=== PATIENT | female | born 1965 | race Two or more races ===

== ENCOUNTER → 2020-06-20 09:58 | Outpatient (BNVA) | payer OTHER, SELFPAY | PROVIDERS: PCP Family Medicine; Referring Provider Family Medicine; Visit Provider Internal Medicine Gastroenterology | DX: Z11.0 Encounter for screening for intestinal infectious diseases (principal) | CPT/HCPCS: 99211 ==

== ENCOUNTER 2020-06-20 17:00 | Outpatient (REF) | payer OTHER, SELFPAY ==
[2020-06-21 13:46] LABS: H Pylori Breath Test NOT DETECTED (NOT DETECTED)
== END 2020-06-20 17:01 | disposition home or self-care (01) ==
LOC: HO.LNP 17:00
PROVIDERS: Visit Provider Internal Medicine Gastroenterology
DX: Z11.0 Encounter for screening for intestinal infectious diseases (principal)
CPT/HCPCS: 83013

== ENCOUNTER 2020-07-19 12:53 | Outpatient (RCR) | payer OTHER, SELFPAY | END 2020-08-20 15:12 | disposition other institution (70) | LOC: HO.OT 12:53 | PROVIDERS: Visit Provider Family Medicine | DX: G56.22 Lesion of ulnar nerve, left upper limb (principal); M96.1 Postlaminectomy syndrome, not elsewhere classified; M47.817 Spondylosis without myelopathy or radiculopathy, lumbosacral region; M47.816 Spondylosis without myelopathy or radiculopathy, lumbar region | CPT/HCPCS: 97110; 97166; 99202 ==

== ENCOUNTER 2020-07-26 12:02 | Outpatient (REF) | payer OTHER, SELFPAY ==
--- NOTE | 2020-07-26 12:10 | XR_ITS ---
EXAMINATION: XR HIP, RIGHT XR HIP, LEFT CLINICAL INFORMATION: Lower back pain. COMPARISON: CT 07/23/2018 TECHNIQUE: 2 views of each hip FINDINGS: Left hip: No fracture or dislocation. The femoral head articulates appropriately with its acetabulum. The joint space is maintained. The left hemipelvis is intact. Mild degenerative change along the sacroiliac joint. Visualized bowel gas pattern is unremarkable. Phleboliths in the pelvis. Right hip: No fracture or dislocation. The femoral head articulates appropriately with its acetabulum. The joint space is maintained. The right hemipelvis is intact. Mild degenerative change along the sacroiliac joint. The visualized bowel gas pattern is unremarkable. Phleboliths are seen in the pelvis. XR/XR hip RT min 2V IMPRESSION: Normal appearance of the hips.
--- NOTE | 2020-07-26 12:10 | XR_ITS ---
EXAMINATION: XR HIP, RIGHT XR HIP, LEFT CLINICAL INFORMATION: Lower back pain. COMPARISON: CT 07/23/2018 TECHNIQUE: 2 views of each hip FINDINGS: Left hip: No fracture or dislocation. The femoral head articulates appropriately with its acetabulum. The joint space is maintained. The left hemipelvis is intact. Mild degenerative change along the sacroiliac joint. Visualized bowel gas pattern is unremarkable. Phleboliths in the pelvis. Right hip: No fracture or dislocation. The femoral head articulates appropriately with its acetabulum. The joint space is maintained. The right hemipelvis is intact. Mild degenerative change along the sacroiliac joint. The visualized bowel gas pattern is unremarkable. Phleboliths are seen in the pelvis. XR/XR hip LT min 2V IMPRESSION: Normal appearance of the hips.
--- NOTE | 2020-07-26 12:10 | XR_ITS ---
EXAMINATION: XR LUMBOSACRAL SPINE CLINICAL INFORMATION: Low back pain COMPARISON: X-rays of lumbar sacral spine July 2018. MRI lumbar sacral spine March 2019. TECHNIQUE: Three views of the lumbosacral spine. FINDINGS: Vertebral bodies normally aligned. Mild degenerative disc changes at L4-L5 unchanged. Probable facet arthrosis at the L5-S1 level and possibly L4-L5 unchanged compared to prior. No fracture or bone lesion. Surgical clips in the right upper quadrant. Partially visualized pelvis including sacroiliac joints normal. XR/XR lumbar spine 2-3V IMPRESSION: Mild spondylosis of lumbar sacral spine without change.
== END 2020-07-26 12:03 | disposition home or self-care (01) ==
LOC: HO.XRAY 12:02
PROVIDERS: PCP Family Medicine; Visit Provider Family Medicine
DX: M54.5 Low back pain (principal)
CPT/HCPCS: 72100; 73502

== ENCOUNTER 2020-08-22 11:34 | Outpatient (REF) | payer OTHER, SELFPAY | END 2020-08-22 11:35 | disposition home or self-care (01) | LOC: HO.LAB 11:34 | PROVIDERS: PCP Family Medicine; Visit Provider Internal Medicine Gastroenterology | DX: Z91.018 Allergy to other foods (principal) | CPT/HCPCS: 82785; 86003 ==

== ENCOUNTER 2020-09-13 08:14 | Day surgery (SDC) | payer OTHER, SELFPAY ==
[2020-09-04 10:39] VITALS: BMI 27.0
--- NOTE | 2020-09-11 11:04 | HO.ANESPROP2 ---
Documented by User: Geno Coffey 09/11/20 11:06 HPI - Anesthesia Eval Consult details Narrative: 54yo F for Upper Endoscopy PMFSH Past Medical History Medical History Arthritis Arthropathy of lumbar facet joint Asthma Depression GERD (gastroesophageal reflux disease) History of anxiety History of fibromyalgia History of headache Lab test positive for detection of COVID-19 virus Postlaminectomy syndrome, cervical Spondylosis of lumbosacral spine without myelopathy Family History Family History Father No problems noted. Mother History of heart attack Surgical History Surgical History History of colonoscopy History of esophagogastroduodenoscopy (EGD) Hx laparoscopic cholecystectomy Hx of cervical discectomy Hx of hysterectomy Social History Social History Alcohol intake: never Smoking Status: Never smoker Use of substances other than those prescribed or required for medical reasons: No Advance Directives Information Provided: No Recently lost weight without trying: No Meds Allergies Allergy/AdvReac Type Severity Reaction Status Date / Time Iodinated Contrast Media Allergy Intermediate HIVES Verified 09/04/20 10:46 [CONTRAST, IV] iopromide [From ULTRAVIST] Allergy Mild HIVES Verified 09/04/20 10:46 ibuprofen [From MOTRIN] AdvReac Intermediate NAUSEA & Verified 09/04/20 10:46 VOMITING Home Medications Medication Instructions Recorded Confirmed Type tramadol 50 mg tablet 50 mg PO BID PRN 07/19/20 09/04/20 History albuterol sulfate 2 puff PO Q4-6H PRN 09/04/20 09/04/20 History atorvastatin 1 tab PO BEDTIME 09/04/20 09/04/20 History buspirone 1 tab PO TID 09/04/20 09/04/20 History yecyczrcxd-cdpzcnijytuva-rfpr 1 tab PO BID PRN 09/04/20 09/04/20 History clonazepam 1 tab PO DAILY PRN 09/04/20 09/04/20 History escitalopram oxalate 1 tab PO DAILY 09/04/20 09/04/20 History pantoprazole 1 tab PO BID 09/04/20 09/04/20 History pregabalin 1 cap PO BEDTIME 09/04/20 09/04/20 History tramadol 1 tab PO Q6H PRN 09/04/20 09/04/20 History zolpidem 1 tab PO BEDTIME PRN 09/04/20 09/04/20 History Exam Exam Date and Time: September 11, 2020 1104 Height,Weight and Vital Signs: Height 4 ft 9 in Weight 56.699 kg Assessment and Plan Assessment Anesthesia Assessment: Chart Reviewed Documented by User: Alfie Walsh MD 09/13/20 08:57 PMFSH Past Medical History Medical History Arthritis Arthropathy of lumbar facet joint Asthma Depression GERD (gastroesophageal reflux disease) History of anxiety History of fibromyalgia History of headache Lab test positive for detection of COVID-19 virus Postlaminectomy syndrome, cervical Spondylosis of lumbosacral spine without myelopathy Family History Family History Father No problems noted. Mother History of heart attack Surgical History Surgical History History of colonoscopy History of esophagogastroduodenoscopy (EGD) Hx laparoscopic cholecystectomy Hx of cervical discectomy Hx of hysterectomy Social History Social History Alcohol intake: never Smoking Status: Never smoker Use of substances other than those prescribed or required for medical reasons: No Advance Directives Information Provided: No Recently lost weight without trying: No Meds Allergies Allergy/AdvReac Type Severity Reaction Status Date / Time Iodinated Contrast Media Allergy Intermediate HIVES Verified 09/04/20 10:46 [CONTRAST, IV] iopromide [From ULTRAVIST] Allergy Mild HIVES Verified 09/04/20 10:46 ibuprofen [From MOTRIN] AdvReac Intermediate NAUSEA & Verified 09/04/20 10:46 VOMITING Home Medications Medication Instructions Recorded Confirmed Type tramadol 50 mg tablet 50 mg PO BID PRN 07/19/20 09/04/20 History albuterol sulfate 2 puff PO Q4-6H PRN 09/04/20 09/04/20 History atorvastatin 1 tab PO BEDTIME 09/04/20 09/04/20 History buspirone 1 tab PO TID 09/04/20 09/04/20 History sgadaglecz-xouyxaepfddnc-vhzs 1 tab PO BID PRN 09/04/20 09/04/20 History clonazepam 1 tab PO DAILY PRN 09/04/20 09/04/20 History escitalopram oxalate 1 tab PO DAILY 09/04/20 09/04/20 History pantoprazole 1 tab PO BID 09/04/20 09/04/20 History pregabalin 1 cap PO BEDTIME 09/04/20 09/04/20 History tramadol 1 tab PO Q6H PRN 09/04/20 09/04/20 History zolpidem 1 tab PO BEDTIME PRN 09/04/20 09/04/20 History Exam Airway Mallampati Class: I TM Dist: >3cm Neck ROM: Full Loose/Missing/Broken Teeth: No Heart: RRR Lungs: NL Other: AO Assessment and Plan Assessment Anesthesia Assessment: Anesthesia Plan Discussed, Smoking Cess. Discussed and Chart Reviewed Final Anesthetic Review NPO: Yes ASA Class: II Final Preanesthetic Review: No Changes in Pt Med Stat, Meds/Allgs Chart Reviewed, Consent Obtained/Reviewed and Anes Risks/Benef Reviewed Patient Risk: Low Procedure Risk: Low Anesthetic Plan Anesthetic Plan: MAC: Disposition: Standard PACU
[2020-09-13 08:43] VITALS: BP 125/79; PULSE 85; RESP 16; TEMP 36.7; O2SAT 100
[2020-09-13] MEDS: Lactated Ringers 1,000 ML 100 ML IVCONT (08:58)
--- NOTE | 2020-09-13 09:16 | P.HPSUR_ITS ---
Pre-Procedural Eval Section B Chief Complaint: EPIGASTRIC PAIN,GERD Relevant Family History (Specify if Yes): No Relevant Social History: None Present Medications: see Short Stay Collaborative assessment Medical History: Significant History (Arthritis Arthropathy of lumbar facet joint Asthma Depression GERD (gastroesophageal reflux disease) History of anxiety History of fibromyalgia History of headache Lab test positive for detection of COVID-19 virus Postlaminectomy syndrome, cervical Spondylosis of lumbosacral spine without myelopathy) History of Previous Operations: Relevant previous surgery/procedure and date(s) (cholecystectomy,hysterectomy) Allergies: Allergies Allergy/AdvReac Type Severity Reaction Status Date / Time Iodinated Contrast Media Allergy Intermediate HIVES Verified 09/04/20 10:46 [CONTRAST, IV] iopromide [From ULTRAVIST] Allergy Mild HIVES Verified 09/04/20 10:46 ibuprofen [From MOTRIN] AdvReac Intermediate NAUSEA & Verified 09/04/20 10:46 VOMITING Review of Systems Sugical H&P ROS: Negative: Constitution, Cardiovascular, Respiratory, N eurological, Psychiatric, Hem-Onc, Allergic/Immunologic, Gastrointestinal, Genitourinary, Musculoskeletal, Integumentary, Endocrine and Eyes/Ears/Nose/Throat Exam Surgical H&P Exam: Normal: HEENT, Normal: Heart, Normal: Lungs, Normal: Extremities, Normal: Abdomen, Normal: Skin and Normal: Neurological Plan Diagnosis/Plan: Unchanged I have reviewed the history and physical and performed a pertinent physical examination on my patient. No changes have occurred unless specified.
--- NOTE | 2020-09-13 09:17 | PM.OP ---
Brief Operative Note Date of Service: 09/13/20 Pre-op diagnosis: epigastric pain Post-op diagnosis: same Procedure: Procedure Description: EGD FLEXIBLE TRANSORAL UPPER GASTROINTESTINAL ENDOSCOPY UPPER ENDOSCOPY Consent: Indications for the procedure and potential complications of bleeding, perforation, reaction to medications and missed diagnosis were discussed with the patient and informed consent was obtained. Instrument: Olympus GIF H 190 J mid size upper endoscope Monitoring: Vital signs and clinical assessment, continuous EKG monitoring, Pulse oximetry, Carbon Dioxide monitoring and blood pressure monitoring were done throughout the procedure. Procedure: The patient was placed in the left lateral decubitis position and pre-procedure medications were administered and a bite block was placed. The endoscope was inserted into the mouth and advanced under direct vision to the third part of duodenum. A careful inspection was made as the upper endoscope was withdrawn including a retroflexed examination of the proximal stomach; Findings and interventions are described below. Findings: Larynx:normal Esophagus: GE junction at 36 cm, diaphragm hiatus at 36 cm, no varices or esophagitis. random bx taken Stomach: Patchy gastric erythema at antrum. Biopsies were obtained. Grade 2 flap valve on retroflexed examination of the cardia. There was a lack of gastric peristalsis Duodenum: Normal bulb and descending duodenum, bx taken Intervention: Biopsies as noted above Impression/Findings: gastritis possible gastroparesis PLAN: await bx gastric emptying study Surgeon: Jensen Garvin MD Anesthesia: MAC Estimated blood loss (mL): 0 Condition: stable Disposition: PACU
[2020-09-13 09:45] VITALS: BP 101/63; PULSE 95; RESP 16; TEMP 36.1; O2SAT 99
[2020-09-13 10:00] VITALS: BP 121/74; PULSE 90; RESP 20; TEMP 36.3; O2SAT 100
--- NOTE | 2020-09-13 10:40 | HO.POSTANES ---
Post Anesthesia Evaluation Post Anesthesia Evaluation Vital Signs: Vital Signs Temp Pulse Resp BP Pulse Ox 09/13/20 10:00 97.4 F 90 20 121/74 100 09/13/20 09:45 97.0 F 95 16 101/63 99 09/13/20 08:43 98.0 F 85 16 125/79 100 Anesthesia: Monitored Mental Status: Awake Pain Control: Satisfactory Nausea/Vomiting: None Hydration: Adequate Anesthesia-Related Issues: No Anes. Related Issues
== END 2020-09-13 11:09 | disposition home or self-care (01) ==
PROVIDERS: PCP Family Medicine; Visit Provider Internal Medicine Gastroenterology
PROC: 0DJ08ZZ Inspection of Upper Intestinal Tract, Via Natural or Artificial Opening Endoscopic (ICD-10-PCS; CPT 43235; principal; 2020-09-13 09:40)
DX: K21.9 Gastro-esophageal reflux disease without esophagitis (principal); K29.50 Unspecified chronic gastritis without bleeding; K31.84 Gastroparesis; K44.9 Diaphragmatic hernia without obstruction or gangrene; J45.909 Unspecified asthma, uncomplicated; Z90.49 Acquired absence of other specified parts of digestive tract; Z79.51 Long term (current) use of inhaled steroids; Z79.899 Other long term (current) drug therapy; Z86.19 Personal history of other infectious and parasitic diseases; Z91.041 Radiographic dye allergy status; Z91.09 Other allergy status, other than to drugs and biological substances
CPT/HCPCS: 43239; 88305; 88342

== ENCOUNTER → 2020-10-31 13:09 | Outpatient (BNVA) | payer OTHER, SELFPAY | PROVIDERS: PCP Family Medicine; Visit Provider Anesthesiology | DX: M96.1 Postlaminectomy syndrome, not elsewhere classified (principal); M47.817 Spondylosis without myelopathy or radiculopathy, lumbosacral region; M47.816 Spondylosis without myelopathy or radiculopathy, lumbar region | CPT/HCPCS: Q3014 ==

== ENCOUNTER 2020-12-04 12:52 | Outpatient (REF) | payer OTHER, SELFPAY ==
--- NOTE | ~2020-12-04 | XR_ITS ---
EXAMINATION: CERVICAL AND THORACIC SPINE X-RAY CLINICAL INFORMATION: Pain COMPARISON: None TECHNIQUE: 4 views of the cervical spine and 2 views of the thoracic spine FINDINGS: Cervical spine: There is mild curvature of the mid cervical spine to the left. Bone alignment is otherwise normal. No fracture or dislocation is seen. There are postsurgical changes from anterior fusion with orthopedic hardware at C6-C7. There is bony ankylosis of the C6-C7 disc space. There is mild degenerative spondylosis at C5-C6. Disc spaces are normal. Prevertebral soft tissues are normal. Thoracic spine: There is curvature of the thoracic spine to the right with apex at T7. Bone alignment is otherwise normal. No fracture or dislocation is seen. It may be mild degenerative disc disease of the mid thoracic spine. Paraspinal soft tissues are unremarkable. XR/XR cervical spine 3V IMPRESSION: Cervical spine: ACDF at C6-C7. Mild degenerative spondylosis at C5-C6. Thoracic spine: Scoliosis of the midthoracic spine convex to the right.
--- NOTE | ~2020-12-04 | XR_ITS ---
EXAMINATION: CERVICAL AND THORACIC SPINE X-RAY CLINICAL INFORMATION: Pain COMPARISON: None TECHNIQUE: 4 views of the cervical spine and 2 views of the thoracic spine FINDINGS: Cervical spine: There is mild curvature of the mid cervical spine to the left. Bone alignment is otherwise normal. No fracture or dislocation is seen. There are postsurgical changes from anterior fusion with orthopedic hardware at C6-C7. There is bony ankylosis of the C6-C7 disc space. There is mild degenerative spondylosis at C5-C6. Disc spaces are normal. Prevertebral soft tissues are normal. Thoracic spine: There is curvature of the thoracic spine to the right with apex at T7. Bone alignment is otherwise normal. No fracture or dislocation is seen. It may be mild degenerative disc disease of the mid thoracic spine. Paraspinal soft tissues are unremarkable. XR/XR thoracic spine 2V IMPRESSION: Cervical spine: ACDF at C6-C7. Mild degenerative spondylosis at C5-C6. Thoracic spine: Scoliosis of the midthoracic spine convex to the right.
[2020-12-04 13:54] LABS: MANUAL DIFF FLAG NO
[2020-12-04 13:58] LABS: Basophils Percent Auto 0.4 % (0-2); Eosinophils Percent Auto 0.4 % (0-4); Hematocrit 35.8 % (37-47); Imm Gran Abs Auto 0.02 X10*3/uL (0.00-0.03); Imm Gran Pct Auto 0.2 % (0.0-0.4); Lymphocytes Absolute Auto 2.7 X10*3/uL (1.2-4.9); Lymphocytes Percent Auto 30.6 % (20-40); Mean Corpuscular HGB Conc 33.5 g/dl (31.0-35.0); Mean Corpuscular Volume 92.5 fL (80-98); Mean Platelet Volume 9.4 fL (9.4-12.3); Monocytes Absolute Auto 0.7 X10*3/uL (0.1-1.2); Monocytes Percent Auto 7.9 % (2-11); Neutrophils Absolute Auto 5.4 X10*3/uL (2.0-8.3); Neutrophils Percent Auto 60.5 % (45-73); Platelet Count 305 X10*3/uL (160-400); Red Blood Count 3.87 X10*6/uL (4.20-5.50); Red Cell Distribution Width 12.9 % (11.0-16.0); White Blood Count 8.9 X10*3/uL (4.8-10.8)
[2020-12-04 14:11] LABS: Estimated Average Glucose 94 mg/dL; Hemoglobin A1c % 4.9 %
[2020-12-04 14:55] LABS: Alanine Aminotransferase 16 U/L (0-31); Albumin Level 4.2 g/dL (3.5-5.0); Alkaline Phosphatase 62 U/L (39-117); Anion Gap 13 (12-20); Aspartate Amino Transferase 22 U/L (5-31); Bilirubin Direct 0.2 mg/dL (0.0-0.5); Bilirubin Total 0.8 mg/dL (0.0-1.0); Blood Urea Nitrogen 10 mg/dL (9-16); Calcium 9.2 mg/dL (8.4-10.2); Carbon Dioxide 29 mmol/L (22-29); Chloride 102 mmol/L (96-108); Cholesterol 266 mg/dL; Estimated Glomerular Filt Rate > 60; Glucose Random 84 mg/dL (60-115); HDL Cholesterol 76 mg/dL; Iron 135 mcg/dL (30-160); LDL Cholesterol Calculated 166 mg/dl; Percent Iron Saturation 40 % (15-50); Potassium 4.1 mmol/L (3.3-5.1); Sodium 140 mmol/L (135-145); Total Iron Binding Capacity 336 mcg/dL (228-428); Total Protein 7.9 g/dL (6.5-8.0); Triglycerides 123 mg/dL; Unsaturated Iron Binding 201 ug/dL
[2020-12-04 15:16] LABS: Ferritin 32 ng/mL (10-250); Free T4 (Free Thyroxine) 0.85 ng/dL (0.71-1.85); Vitamin D 25-OH Total 21.3 ng/mL (>30)
[2020-12-04 15:43] LABS: Folate 13.4 ng/mL (> or = 4.0); Vitamin B12 220 pg/mL (200-900)
[2020-12-05 08:31] LABS: ~HepC Num1 0.19 S/CO (0.00-0.79); ~Hepatitis C Antibody Nonreactive (Nonreactive)
[2020-12-05 08:33] LABS: HBsAGNum1 0.18 S/CO (0.00-0.99); HIV AB/AG Nonreactive (Nonreactive); HIV Num 1 0.04 S/CO (0.00-0.99); Hepatitis B Surface Antigen Negative (Negative)
[2020-12-05 08:55] LABS: HBS Num1 3.65 mIU/mL (0-7.99); ~Hepatitis B Surface Antibody NONREACTIVE (Nonreactive)
[2020-12-05 11:40] LABS: CT PCR NOT DETECTED (Not Detect.); NG PCR NOT DETECTED (Not Detect.)
== END 2020-12-04 12:53 | disposition home or self-care (01) ==
LOC: HO.LAB 12:52
PROVIDERS: PCP Family Medicine; Visit Provider Family Medicine
DX: E78.5 Hyperlipidemia, unspecified (principal); R53.83 Other fatigue; M54.2 Cervicalgia
CPT/HCPCS: 72040; 72070; 80048; 80061; 80076; 82306; 82607; 82728; 82746; 83036; 83540; 84439; 84443; 85025; 86706; 86803; 87340; 87389; 87491; 87591

== ENCOUNTER → 2020-12-21 13:57 | Outpatient (BNVA) | payer OTHER, SELFPAY | PROVIDERS: Visit Provider Student in an Organized Health Care Education/Training Program | DX: M79.7 Fibromyalgia (principal) | CPT/HCPCS: 99212 ==

== ENCOUNTER 2021-03-07 13:57 | Outpatient (REF) | payer OTHER, SELFPAY ==
[2021-03-08 17:17] LABS: Urine Cytology See Pathology rpt
== END 2021-03-07 13:58 | disposition home or self-care (01) ==
LOC: HO.LNP 13:57
PROVIDERS: PCP Family Medicine
DX: N39.0 Urinary tract infection, site not specified (principal); R31.9 Hematuria, unspecified
CPT/HCPCS: 88112; 99212

== ENCOUNTER → 2021-03-13 08:08 | Outpatient (REF) | payer OTHER, SELFPAY ==
--- NOTE | ~2021-03-13 | NM_ITS ---
EXAMINATION: RADIONUCLIDE SOLID FOOD GASTRIC EMPTYING 4-HOUR STUDY CLINICAL INFORMATION: Epigastric pain. COMPARISON: No previous gastric emptying study is available for comparison. TECHNIQUE: A standard meal consisting of 4 oz of Egg Beaters brand tagged with 740 microcuries Tc-99m Sulfur Colloid, 8 oz water and 2 slices of toast with jelly was administered orally to the patient. Images were obtained using a dual head gamma camera in the anterior and posterior projections over of the stomach immediately post ingestion and at hourly intervals up to 3 hours post ingestion. Images were not obtained at 4 hours due to the minimal retention at 3 hours. The anterior and posterior counts at each time interval were averaged using the geometric mean and expressed as percentage of the immediate post ingestion counts. FINDINGS: There is good visualization of activity in the stomach immediately post ingestion. As the study progresses, there is good clearance of activity from the stomach and visualization of progressively increasing small bowel activity. By the end of the study, there is almost no retention noted in the stomach. Retention in the stomach at each time interval was: 1 hour 82% (normal 37%-90%) 2 hours 14% (normal 30%-60%) 3 hours 6% 4 hours (Not Obtained) (normal 0%-10%) NM/NM gastric emptying study IMPRESSION: Normal solid food gastric emptying study.
== END ==
LOC: HO.NUCMED 08:08
PROVIDERS: Visit Provider Internal Medicine Gastroenterology
DX: R10.13 Epigastric pain (principal)
CPT/HCPCS: 78264; A9541

== ENCOUNTER 2021-03-19 09:30 | Outpatient (REF) | payer OTHER, SELFPAY ==
--- NOTE | ~2021-03-19 | US_ITS ---
EXAMINATION: US THYROID CLINICAL INFORMATION: Nontoxic multinodular goiter. COMPARISON: Thyroid ultrasound 02/02/2020 and 01/20/2018. Ultrasound-guided thyroid biopsy 07/08/2018. TECHNIQUE: Linear transducer grayscale and color Doppler examination with attention to the region of the thyroid. FINDINGS: SIZE: Measurements of the thyroid lobes and nodules are given in sagittal, anteroposterior and transverse dimensions respectively. Right Thyroid Lobe: 4.6 x 1.2 x 1.5 cm, volume 4.2 mL. Previously 4.6 x 1.1 x 1.3 cm, volume 3.6 mL. Parenchyma: The gland echotexture is homogeneous. Thyroid vascularity is normal. Left Thyroid Lobe: 4.8 x 1.2 x 1.4 cm, volume 4.2 mL. Previously 4.9 x 1.6 x 1.2 cm, volume 4.8 mL. Parenchyma: The gland echotexture is homogeneous. Thyroid vascularity is normal. Isthmus: 0.3 cm in maximum AP dimension. Previously 0.5 cm. Estimated total number of nodules greater than or equal to 1 cm: 2. Brass Chaser nodules are described as follows: 1. Location: Right lower pole. Size: 0.4 x 0.3 x 0.4 cm, volume 0.02 mL. Previously: 0.4 x 0.4 x 0.4 cm, volume 0.03 mL. Nodule characteristics: Composition: Solid/almost completely solid (2). Echogenicity: Hyperechoic (1). Shape: Not taller than wide (0). Margins: Smooth (0). Echogenic Foci: Peripheral calcifications (2). ACR TI-RADS total points: 5: ACR TI-RADS category: 4 Significant change in size (>/= 20% in 2 dimensions and minimal increase of 2 mm or 50% or greater increase in volume): Change in features: Change in ACR TI-RADS risk category: 2. Location: Left upper pole. Size: 1.0 x 0.8 x 0.8 cm, volume 0.36 mL. Previously: 1.0 x 1.0 x 0.8 cm, volume 0.38 mL. Nodule characteristics: Composition: Solid/almost completely solid (2). Echogenicity: Hypoechoic (2). Shape: Not taller than wide (0). Margins: Smooth (0). Echogenic Foci: None (0). ACR TI-RADS total points: 4 ACR TI-RADS category: 4 Significant change in size (>/= 20% in 2 dimensions and minimal increase of 2 mm or 50% or greater increase in volume): Change in features: Change in ACR TI-RADS risk category: 3. Location: Left mid pole. Size: 0.4 x 0.2 x 0.3 cm, volume 0.014 mL. Previously: 0.5 x 0.3 x 0.3 cm, volume 0.02 mL. Nodule characteristics: Composition: Solid/almost completely solid (2). Echogenicity: Hypoechoic (2). Shape: Not taller than wide (0). Margins: Smooth (0). Echogenic Foci: None (0). ACR TI-RADS total points: 4 ACR TI-RADS category: 4 Significant change in size (>/= 20% in 2 dimensions and minimal increase of 2 mm or 50% or greater increase in volume): Change in features: Change in ACR TI-RADS risk category: 4. Location: Left lower pole. Size: 1.4 x 0.9 x 1.2 cm, volume 0.78 mL. Previously: 1.1 x 1.3 x 1.2 cm, volume 0.9 mL. Nodule characteristics: Composition: Mixed cystic and solid (1). Echogenicity: Hyperechoic (1). Shape: Not taller than wide (0). Margins: Smooth (0). Echogenic Foci: None (0). ACR TI-RADS total points: 2 ACR TI-RADS category: 2 Significant change in size (>/= 20% in 2 dimensions and minimal increase of 2 mm or 50% or greater increase in volume): Change in features: Change in ACR TI-RADS risk category: 5. Location: Isthmus, lower pole. Size: 1.0 x 0.6 x 1.3 cm, volume 0.36 mL. Previously: 1.5 x 1.2 x 1.3 cm, volume 1.2 mL. Nodule characteristics: Composition: Mixed cystic and solid (1). Echogenicity: Hypoechoic (2). Shape: Not taller than wide (0). Margins: Smooth (0). Echogenic Foci: None (0). ACR TI-RADS total points: 3 ACR TI-RADS category: 3 Significant change in size (>/= 20% in 2 dimensions and minimal increase of 2 mm or 50% or greater increase in volume): Change in features: Change in ACR TI-RADS risk category: NODES: No lymphadenopathy is seen in the tissue surrounding the thyroid gland. US/US thyroid IMPRESSION: Stable bilateral thyroid nodules. ACR TI-RADS RECOMMENDATION REFERENCE: Ultrasound-guided fine-needle aspiration, followup ultrasound, no further follow up. * TR1 (0 point) and TR 2 (2 points): No FNA or follow up * TR3 (3 points): FNA if more than or equal to 2.5 cm in maximum dimension, followup ultrasound in 1, 3 and 5 years if 1.5 to 2.4 cm in maximum dimension. * TR4 (4-6 points): FNA if more than or equal to 1.5 cm in maximum dimension, followup ultrasound in 1, 2, 3 and 5 years if 1 to 1.4 cm in maximum dimension. * TR5 (more than or equal to 7 points): FNA if more than or equal to 1 cm in maximum dimension, followup ultrasound every year for 5 years if 0.5 to 0.9 cm in maximum dimension. * TR3, TR4 or TR5 nodules that are below the size threshold for follow up receive no follow up.
== END 2021-03-19 09:31 | disposition home or self-care (01) ==
LOC: HO.US 09:30
PROVIDERS: Visit Provider Internal Medicine Endocrinology, Diabetes & Metabolism
DX: E04.2 Nontoxic multinodular goiter (principal)
CPT/HCPCS: 76536

== ENCOUNTER → 2021-03-26 07:56 | Outpatient (BNVA) | payer OTHER, SELFPAY | PROVIDERS: PCP Family Medicine; Visit Provider Internal Medicine Endocrinology, Diabetes & Metabolism | DX: E04.2 Nontoxic multinodular goiter (principal) | CPT/HCPCS: 99212 ==

== ENCOUNTER 2021-06-07 11:46 | Outpatient (REF) | payer OTHER, SELFPAY | END 2021-06-07 11:47 | disposition home or self-care (01) | LOC: HO.LNP 11:46 | PROVIDERS: PCP Family Medicine | DX: N39.0 Urinary tract infection, site not specified (principal) | CPT/HCPCS: 81002; 87086; 99212 ==

== ENCOUNTER → 2021-07-02 15:07 | Outpatient (BNVA) | payer OTHER, SELFPAY | PROVIDERS: PCP Family Medicine; Referring Provider Family Medicine; Visit Provider Internal Medicine Cardiovascular Disease | DX: R07.89 Other chest pain (principal); E78.5 Hyperlipidemia, unspecified | CPT/HCPCS: 93005; 99212 ==

== ENCOUNTER → 2021-07-05 08:10 | Outpatient (REF) | payer OTHER, SELFPAY ==
--- NOTE | 2021-07-05 08:13 | CA_ITS ---
Acquisition Time: 2021-07-05 08:15:03 Total Exercise Time: 00:07:00 Test Indications: Chest Pain Medications: SEE CHART Protocol: BETSY Max HR: 146 BPM 87% of Pred: 166 BPM Max BP: 126/072 mmHG Max Work Load: 8.5 METS Exercise stress test with exercise 7 min of Betsy protocol, without anginal symptoms, without arrythmia, with normotensive response to exercise, without EKG changes meeting criteria for ischemia. Test reviewed with Dr Finley. Referred By: Shiv Denny Overread By: MEE JENKINS
== END ==
LOC: HO.CARD 08:10
PROVIDERS: PCP Family Medicine; Visit Provider Internal Medicine Cardiovascular Disease
DX: R07.89 Other chest pain (principal)
CPT/HCPCS: 93017

== ENCOUNTER → 2021-07-23 13:27 | Outpatient (BNVA) | payer OTHER, SELFPAY | PROVIDERS: PCP Family Medicine; Referring Provider Family Medicine; Visit Provider Nurse Practitioner Family | DX: R07.89 Other chest pain (principal); E78.5 Hyperlipidemia, unspecified | CPT/HCPCS: 99212 ==

== ENCOUNTER 2021-08-29 14:14 | Outpatient (REF) | payer OTHER, SELFPAY ==
--- NOTE | ~2021-08-29 | XR_ITS ---
EXAMINATION:XR cervical spine 3V CLINICAL INFORMATION: Cervalgia COMPARISON: None TECHNIQUE: 3 views of the cervical spine were obtained. Frontal lateral and open-mouth odontoid view FINDINGS: 7 cervical vertebrae identified maintaining normal height and alignment, anterior fusion of C6-C7 with a plate and screws, the vertebral bodies are completely fused.. Narrowing of intervertebral disc spaces at mild narrowing of the intervertebral disc spaces at C5-C6 and C7-T1 suggests underlying mild degenerative disc disease. No prevertebral soft tissue swelling. Surrounding soft tissue and included lung apices are clear. Included lung apex is clear. XR/XR cervical spine 3V IMPRESSION: 1. Complete anterior fusion of C6 and C7, hardware remain in place intact. 2. Narrowing of intervertebral disc spaces suggest underlying degenerative disc disease. 3. Loss of normal cervical lordosis likely spasm.
--- NOTE | ~2021-08-29 | XR_ITS ---
EXAMINATION: XR LUMBAR SPINE CLINICAL INFORMATION: Reason for Exam LUMBAGO W/SCIATICA, LEFT SIDE COMPARISON: Prior study July 2020 TECHNIQUE: Frontal lateral and coned-down L5-S1 frontal lateral FINDINGS: 4 [id number] lumbar vertebrae were identified maintaining normal height and alignments. L5 is sacralized. Narrowing of intervertebral disc spaces suggest underlying degenerative disc disease. Paravertebral soft tissues are unremarkable. There are radiolucencies, most likely superimposed bowel gas.. Surgical clips right upper quadrant from prior cholecystectomy. No radiographic evidence of osteolytic or osteoblastic lesions. XR/XR lumbar spine 2-3V IMPRESSION: No fracture or dislocation. Narrowing of intervertebral disc spaces suggest underlying degenerative disc disease. . Congenitally sacralized L5.
== END 2021-08-29 14:15 | disposition home or self-care (01) ==
LOC: HO.XRAY 14:14
PROVIDERS: PCP Family Medicine; Visit Provider Family Medicine
DX: M54.2 Cervicalgia (principal); M54.42 Lumbago with sciatica, left side
CPT/HCPCS: 72040; 72100

== ENCOUNTER 2021-09-18 08:32 | Outpatient (REF) | payer OTHER, SELFPAY ==
--- NOTE | ~2021-09-18 | CT_ITS ---
EXAMINATION: CT CHEST WITHOUT CONTRAST CLINICAL INFORMATION: Solitary pulmonary nodule. COMPARISON: CT chest 06/07/2020. TECHNIQUE: Multidetector volumetric CT imaging of the chest was done. Axial MIP volume rendering provided. Sagittal and coronal reformatted images were obtained. This CT examination was performed using dose optimization techniques as appropriate, variously including the following: *Automated exposure control *Adjustment of mA and/or kV according to patient size (this includes techniques or standardized protocols for targeted exams where dose is matched to indication/reason for exam; i.e. extremities or head) *Use of iterative reconstruction technique DLP: 99 mGy-cm FINDINGS: [facility]: Unremarkable chest. LUNGS: There is a 2 mm calcified granuloma right upper lobe adjacent to the anterior mediastinum, axial image 111/6; 3 mm nodule along the left major fissure, axial image 191/6; 3 mm pleural-based nodule in the right lower lobe, axial image 190/6; 4 mm and adjacent 2 mm nodule right middle lobe, axial image 216/6, axial image 246/6; 1 mm calcified nodule right lower lobe, image 261/6. There is no acute consolidation, mass or ground-glass density. MEDIASTINUM: There is a known nodular left thyroid lobe extending to the isthmus better visualized now measuring 1.1 cm. Small calcified density seen in the right lobe. Central trachea and the bronchi are widely patent. Heart size and the great vessels are normal caliber. There is no pericardial effusion. No abnormal size mediastinal or hilar lymph nodes seen. PLEURA: There is no pleural effusion. No pleural mass or thickening. AXILLA: No abnormal axillary lymphadenopathy seen. UPPER ABDOMEN: Visualized liver, spleen and pancreas are unremarkable. Gallbladder has been surgically removed. OSSEOUS STRUCTURES: There is [id number] dextroscoliosis dorsal spine. No aggressive lytic or sclerotic process seen. CT/CT chest wo con IMPRESSION: Stable bilateral calcified and noncalcified pulmonary nodules, largest noncalcified nodule measuring 4 mm in the right middle lobe. Some of the nodules are slightly larger by a mm. No new nodules identified. No abnormal mediastinal or axillary lymphadenopathy. [id number]-[id number] dextroscoliosis dorsal spine is stable. Left thyroid lobe nodule appears stable. Fleischner guidelines were followed.
== END 2021-09-18 08:33 | disposition home or self-care (01) ==
LOC: HO.CT 08:32
PROVIDERS: Visit Provider Family Medicine
DX: R91.1 Solitary pulmonary nodule (principal)
CPT/HCPCS: 71250

== ENCOUNTER 2021-10-11 11:21 | Outpatient (REF) | payer OTHER, SELFPAY ==
--- NOTE | ~2021-10-11 | MM_ITS ---
EXAMINATION: MM SCREENING DIGITAL BREAST TOMOSYNTHESIS, BILATERAL CLINICAL INFORMATION: Screening. Asymptomatic. The lifetime risk of breast cancer based on the Tyrer-Cuzick Model is 6%. COMPARISON: Mammography: 11/19/2018, 06/01/2017, 11/23/2015 TECHNIQUE: Digital breast tomosynthesis is performed in both the craniocaudal and mediolateral oblique views along with computer-aided detection (CAD). Synthesized 2D images are generated from the tomosynthesis. FINDINGS: There are scattered areas of fibroglandular density (ACR BI-RADS breast composition Category b). There are no significant masses, abnormal calcifications, or other abnormalities. The axilla and skin contours are unremarkable. There are no significant changes from prior exams. MM/MM tomosynthesis screening BI IMPRESSION: No mammographic evidence of malignancy. ASSESSMENT: BI-RADS 1: Negative RECOMMENDATION: Routine annual mammography screening. This patient's information was entered into a reminder system with a target due date for their next mammogram.
== END 2021-10-11 11:22 | disposition home or self-care (01) ==
LOC: HO.MAMMO 11:21
PROVIDERS: PCP Family Medicine; Visit Provider Family Medicine
DX: Z12.31 Encounter for screening mammogram for malignant neoplasm of breast (principal)
CPT/HCPCS: 77063; 77067

== ENCOUNTER 2021-10-23 08:47 | Outpatient (REF) | payer OTHER, SELFPAY ==
--- NOTE | 2021-10-23 08:54 | EMG_ITS ---
This is a 55-year-old woman with 4-year history of a cervical diskectomy and fusion, who comes in with left upper extremity pain and numbness going down the arm and some neck and shoulder pain. Her neurological examination is normal. No Tinel or Phalen sign. IMPRESSION: Rule out cervical radiculopathy. Nerve conduction EMG study: Normal electrodiagnostic study of the left upper extremity with no evidence of nerve entrapment or carpal tunnel syndrome. Normal EMG of the left C5-T1 innervated muscles. MD SIMON Telles/ABRAHAM / [id number]
== END 2021-10-23 08:48 | disposition home or self-care (01) ==
LOC: HO.NEURO 08:47
PROVIDERS: PCP Family Medicine; Visit Provider Family Medicine
DX: M54.2 Cervicalgia (principal); M79.602 Pain in left arm; R91.1 Solitary pulmonary nodule
CPT/HCPCS: 95885; 95910

== ENCOUNTER 2021-11-07 13:20 | Outpatient (REF) | payer OTHER, SELFPAY ==
--- NOTE | ~2021-11-07 | XR_ITS ---
EXAMINATION: XR HAND, LEFT CLINICAL INFORMATION: Left hand pain. COMPARISON: None TECHNIQUE: PA, lateral, and oblique views of the left hand. FINDINGS: The bones and soft tissues are normal. No fracture. Alignment is anatomic. Joint spaces are maintained. No erosions or soft tissue calcifications. XR/XR hand LT min 3V IMPRESSION: Unremarkable left hand.
== END 2021-11-07 13:21 | disposition home or self-care (01) ==
LOC: HO.XRAY 13:20
PROVIDERS: PCP Family Medicine; Visit Provider Family Medicine
DX: M79.642 Pain in left hand (principal)
CPT/HCPCS: 73130

== ENCOUNTER 2021-11-18 16:51 | Emergency (ER) | payer OTHER, SELFPAY ==
--- NOTE | ~2021-11-18 | CT_ITS ---
EXAMINATION: CT ABDOMEN AND PELVIS WITHOUT CONTRAST CLINICAL INFORMATION: Right flank and abdominal pain COMPARISON: CT abdomen pelvis 07/23/2018 TECHNIQUE: Multidetector volumetric imaging was performed from the superior aspect of the liver through the pubic symphysis. Sagittal and coronal reformatted images were obtained on the technologist's workstation. This CT examination was performed using dose optimization techniques as appropriate, variously including the following: *Automated exposure control *Adjustment of mA and/or kV according to patient size (this includes techniques or standardized protocols for targeted exams where dose is matched to indication/reason for exam; i.e. extremities or head) *Use of iterative reconstruction technique DLP: 409 mGy-cm FINDINGS: LUNG BASES: The visualized lung bases are unremarkable. LIVER, GALLBLADDER, AND BILIARY TREE: The liver is normal in size, shape, and attenuation. Again seen are some hepatic cysts. No worrisome solid focal hepatic lesion or biliary ductal dilatation is present. Gallbladder is not present. PANCREAS: Unremarkable. SPLEEN: Unremarkable. ADRENAL GLANDS: Unremarkable. KIDNEYS AND URETERS: The kidneys are normal in size, shape, and attenuation. Renal cysts are present better appreciated on prior contrast-enhanced studies. No worrisome renal mass is present. No hydronephrosis, hydroureter, or calculi seen. No perinephric stranding. BLADDER: Unremarkable. GASTROINTESTINAL TRACT: A large amount of stool is present in the rectum. The small and large bowel are unremarkable. The appendix is unremarkable. ABDOMINAL WALL: No significant hernia is appreciated. LYMPH NODES: No retroperitoneal lymphadenopathy. VASCULAR: Calcific plaque is present without aneurysm. PELVIC VISCERA: Uterus is not seen. An abnormal adnexal mass is not present. No free intraperitoneal fluid seen. OSSEOUS STRUCTURES: Unremarkable. CT/CT abdomen pelvis wo con IMPRESSION: A cause for the patient's right flank and abdominal pain has not been found. Incidental findings as described above. Fleischner guidelines were followed.
[2021-11-18 17:18] VITALS: BP 151/81; PULSE 81; RESP 18; TEMP 36.6; O2SAT 98; BMI 25.2
[2021-11-18 17:38] LABS: MANUAL DIFF FLAG NO
[2021-11-18 17:39] LABS: Appearance Urine CLEAR; Color Urine YELLOW; Glucose Urine UA NEG (NEG); Leukocyte Esterase Urine NEG (NEG); Nitrite Urine NEG (NEG); PH 6.5 (5.0-8.0); UACC Culture Trigger NO; Urine Blood TRACE (NEG); Urine Ketones NEG (NEG); Urine Protein NEG (NEG-TRACE)
[2021-11-18 17:42] LABS: Basophils Percent Auto 0.3 % (0-2); Eosinophils Percent Auto 0.2 % (0-4); Hematocrit 38.8 % (37.0-47.0); Hemoglobin 13.1 g/dl (12.0-16.0); Imm Gran Abs Auto 0.03 X10*3/uL (0.00-0.03); Imm Gran Pct Auto 0.3 % (0.0-0.4); Lymphocytes Absolute Auto 2.7 X10*3/uL (1.2-4.9); Mean Corpuscular HGB Conc 33.8 g/dl (31.0-35.0); Mean Corpuscular Hemoglobin 31.6 pg (27.0-33.0); Mean Corpuscular Volume 93.5 fL (80.0-98.0); Mean Platelet Volume 8.8 fL (9.4-12.3); Monocytes Absolute Auto 0.5 X10*3/uL (0.1-1.2); Monocytes Percent Auto 5.5 % (2-11); Neutrophils Percent Auto 64.7 % (45-73); Platelet Count 314 X10*3/uL (160-400); Red Blood Count 4.15 X10*6/uL (4.20-5.50); Red Cell Distribution Width 12.4 % (11.0-16.0); White Blood Count 9.3 X10*3/uL (4.8-10.8)
[2021-11-18 17:53] LABS: Squamous Epithelial Cell Urine 1+ /LPF; WBC Urine 0 /HPF (0-4)
[2021-11-18 17:55] LABS: Alanine Aminotransferase 21 U/L (0-31); Albumin Level 4.5 g/dL (3.5-5.0); Alkaline Phosphatase 78 U/L (39-117); Anion Gap 11 (12-20); Aspartate Amino Transferase 25 U/L (5-31); Bilirubin Direct 0.2 mg/dL (0.0-0.5); Bilirubin Total 0.4 mg/dL (0.0-1.0); Blood Urea Nitrogen 7 mg/dL (9-16); Calcium 9.9 mg/dL (8.4-10.2); Carbon Dioxide 33 mmol/L (22-29); Chloride 99 mmol/L (96-108); Creatinine Clr Calc Pharmacy 63.2; Estimated Glomerular Filt Rate > 60; Glucose Random 101 mg/dL (60-115); Lipase 42 U/L (8-78); Sodium 139 mmol/L (135-145)
--- NOTE | 2021-11-18 22:19 | ED.ABDPAIN ---
HPI - Abdominal Pain General Chief Complaint: Abdominal Pain Stated Complaint: Abd pain-sent from [facility] Time Seen by Provider: 11/18/21 23:22 Source: patient Mode of arrival: ambulatory Limitations: no limitations History of Present Illness HPI narrative: 55-year-old female presents with right-sided abdominal and flank pain with nausea for approximately 4 days. Patient also feels tired states to have a poor p.o. intake. MD elicited complaint: abdominal pain and flank pain Pertinent past history: other (Fibromyalgia) Onset (ago): day(s) (4) Pain Consistency: constant Location: RUQ, RLQ and R flank Severity: severe Pain scale (0-10): 9 Quality: cramping and aching Exacerbating factors: eating and movement Relieving factors: nothing Associated symptoms: nausea Related Data Patient : No Home Medications Medication Instructions Recorded Confirmed tramadol 50 mg tablet 50 mg PO BID PRN 07/19/20 07/24/21 albuterol sulfate 90 mcg/actuation 2 puff PO Q4-6H PRN 09/04/20 07/24/21 aerosol inhaler clonazepam 1 mg tablet 1 tab PO DAILY PRN 09/04/20 07/24/21 zolpidem 10 mg tablet 1 tab PO BEDTIME PRN 09/04/20 07/24/21 atorvastatin 10 mg tablet 10 mg PO BEDTIME 07/02/21 07/24/21 bisacodyl 5 mg tablet,delayed 5 mg PO BEDTIME tab 07/02/21 07/24/21 release buspirone 5 mg tablet 5 mg PO TID 07/02/21 07/24/21 saobrpepjd-pxrsywfijmnde-bbsrjfug 1 tab PO BID PRN 07/02/21 07/24/21 50 mg-325 mg-40 mg tablet escitalopram oxalate 20 mg tablet 20 mg PO DAILY 07/02/21 07/24/21 pantoprazole 40 mg tablet,delayed 40 mg PO BID 07/02/21 07/24/21 release Previous Rx's Medication Instructions Recorded dicyclomine 10 mg capsule 10 mg PO TID #90 cap 08/20/20 pregabalin 75 mg capsule (Lyrica) 75 mg PO BEDTIME #90 cap 12/21/20 Allergies Allergy/AdvReac Type Severity Reaction Status Date / Time Iodinated Contrast Media Allergy Intermediate HIVES Verified 07/23/21 13:35 [CONTRAST, IV] iopromide [From ULTRAVIST] Allergy Mild HIVES Verified 07/23/21 13:35 ibuprofen [From MOTRIN] AdvReac Intermediate NAUSEA & Verified 07/23/21 13:35 VOMITING Review of Systems Review of Systems Constitutional: No Weight loss, No Fever, No Chills, No Night Sweats, positive Fatigue, No Malaise ENT/Mouth: No Hearing loss, No Ear Pain, No Nasal Congestion, No Sinus Pain, No Hoarseness, No sore throat, No Rhinorrhea, No Swallowing Difficulty Eyes: No Eye Pain, No Swelling, No Redness, No Foreign Body, No Discharge, No Vision Changes Cardiovascular: No Chest Pain, No SOB, No Dyspnea on Exertion, No Orthopnea, No Edema, No Palpitations Respiratory: No Cough, No Sputum, No Wheezing, No Smoke Exposure, No Dyspnea Gastrointestinal: Positive Nausea, no Vomiting, no Diarrhea, positive abdominal Pain, No Hematochezia, No Melena Genitourinary: no irregular bleeding, No Dysuria, No Urinary Frequency, No Hematuria, No Urinary Incontinence, No Urgency, positive right Flank Pain, No Urinary Flow Changes, No Hesitancy Musculoskeletal: No joint pain, No Myalgias, No Joint Swelling Skin: No Skin Lesions, No rash Neuro: No Weakness, No Numbness, No Paresthesias, No Loss of Consciousness, No Dizziness, No Headache Psych: No Anxiety/Panic, No Depression, No SI/HI/AH/VH, No Social Issues Heme/Lymph: No Bruising, No Bleeding,No Lymphadenopathy Endocrine: No Polyuria, No Polydipsia, No Temperature Intolerance Yes all other systems are reviewed and are negative [facility] Past Medical History Attestation statement: The following information was validated with the patient. Source: old records reviewed Medical History Arthritis Arthropathy of lumbar facet joint Asthma Depression Fibromyalgia GERD (gastroesophageal reflux disease) History of anxiety History of fibromyalgia History of headache Hyperlipidemia Lab test positive for detection of COVID-19 virus Non-toxic multinodular goiter Postlaminectomy syndrome, cervical Spondylosis of lumbosacral spine without myelopathy Surgical History History of colonoscopy History of esophagogastroduodenoscopy (EGD) Hx laparoscopic cholecystectomy Hx of cervical discectomy Hx of hysterectomy Family History Family History Father No problems noted. Mother History of heart attack Social History Social History Alcohol intake: current Alcohol intake frequency: holidays/special occasions only Patient Tobacco Use Status: Never used Tobacco Advance Directives: No Advance Directives Information Provided: Yes Patient : No Physical Exam ED Vital Signs: Vital Signs - 24 hr 11/18/21 17:18 11/18/21 22:26 11/18/21 23:55 Temperature 98 F 97.3 F Pulse Rate 81 86 66 Respiratory Rate 18 18 16 Blood Pressure 151/81 H 164/86 H 145/79 H Pulse Oximetry 98 98 BMI result Body Mass Index 25.2 Appearance: Alert. Oriented X3. Moderate distress. Eyes: Pupils equal, round and reactive to light. EOMI. Sclera nonicteric. ENT: Pharynx normal. Moist mucous membranes. Neck: Normal inspection. Neck supple. CVS: Normal heart rate and rhythm. Pulses normal. Respiratory: No respiratory distress. Breath sounds normal. Abdomen: Soft and diffusely tender, no rebound rigidity or distention. Positive right-sided CVA tenderness Skin: Skin warm and dry. Normal skin color. Normal skin turgor. Extremities: Gait well-balanced well coordinated. Neuro: No motor deficit. No sensory deficit. Cranial nerves 2-12 intact. Course Course Course Narrative: 55-year-old female presents with abdominal pain, right-sided flank pain and nausea for approximately 4 days. Also reports nausea without vomiting, and fatigue. Appears nontoxic and afebrile. Abdominal exam tender to palpation with right-sided CVA tenderness. Labs drawn while patient was in the emergency department waiting room which are unremarkable. Based on patient's physical presentation and exam, will order CT scan of abdomen and pelvis to rule out acute abdomen. She has had a hysterectomy with bilateral oophorectomy and salpingectomy. 23:50 CT scan negative for acute findings requiring emergent intervention, incidental findings of constipation. I did discuss findings with patient, she would like something for constipation, I did offer enema however she politely declined, and accepted Mag citrate.Patient verbalized understanding of and agrees to plan of care discharge home. Verbalized understanding of signs and symptoms indicating need for emergent intervention MDM - Abdominal Pain Differential Diagnosis Differential diagnosis: Likely abdominal pain, acute appendicitis, calculus of kidney, constipation, diverticulitis, pancreatitis and small bowel obstruction Medical Records Attestation: I reviewed the patient's medical records. Lab Data Attestation: I reviewed the patient's lab results. Result diagrams: 11/18/21 17:32 11/18/21 17:32 Labs: Lab Results 11/18/21 11/18/21 11/18/21 Range/Units 17:32 17:32 17:32 WBC 9.3 (4.8-10.8) X10*3/uL RBC 4.15 L (4.20-5.50) X10*6/uL Hgb 13.1 (12.0-16.0) g/dl Hct 38.8 (37.0-47.0) % MCV 93.5 (80.0-98.0) fL MCH 31.6 (27.0-33.0) pg MCHC 33.8 (31.0-35.0) g/dl RDW 12.4 (11.0-16.0) % Plt Count 314 (160-400) X10*3/uL MPV 8.8 L (9.4-12.3) fL Immature Gran % (Auto) 0.3 (0.0-0.4) % Neut % (Auto) 64.7 (45-73) % Lymph % (Auto) 29.0 (20-40) % Barton % (Auto) 5.5 (2-11) % Eos % (Auto) 0.2 (0-4) % Baso % (Auto) 0.3 (0-2) % Lymph # (Auto) 2.7 (1.2-4.9) X10*3/uL Barton # (Auto) 0.5 (0.1-1.2) X10*3/uL Eos # (Auto) 0.0 (0.0-0.4) X10*3/uL Baso # (Auto) 0.0 (0.0-0.2) X10*3/uL Abs Immat Gran (auto) 0.03 (0.00-0.03) X10*3/uL Absolute Neuts (auto) 6.0 (2.0-8.3) x10*3/uL Absolute Nucleated RBC 0.000 (0.0-0.012) X10*3/uL Nucleated RBC % (auto) 0.0 (0.0-0.2) /100WBC Sodium 139 (135-145) mmol/L Potassium 4.0 (3.3-5.1) mmol/L Chloride 99 (96-108) mmol/L Carbon Dioxide 33 H (22-29) mmol/L Anion Gap 11 L (12-20) BUN 7 L (9-16) mg/dL Creatinine 0.78 (0.5-1.4) mg/dL Estim Creat Clear Calc 63.2 Estimated GFR > 60 Random Glucose 101 (60-115) mg/dL Calcium 9.9 D (8.4-10.2) mg/dL Total Bilirubin 0.4 (0.0-1.0) mg/dL Direct Bilirubin 0.2 (0.0-0.5) mg/dL AST 25 (5-31) U/L ALT 21 (0-31) U/L Alkaline Phosphatase 78 D (39-117) U/L Total Protein 9.0 H (6.5-8.0) g/dL Albumin 4.5 (3.5-5.0) g/dL Lipase 42 (8-78) U/L Urine Color YELLOW Urine Appearance CLEAR Urine pH 6.5 (5.0-8.0) Ur Specific [place] 1.010 (1.005-1.025) Urine Protein NEG (NEG-TRACE) MG/DL Urine Glucose (UA) NEG (NEG) MG/DL Urine Ketones NEG (NEG) MG/DL Urine Blood TRACE (NEG) Urine Nitrite NEG (NEG) Ur Leukocyte Esterase NEG (NEG) Urine RBC 1-4 (0) /HPF Urine WBC 0 (0-4) /HPF Ur Squamous Epith Cells 1+ /LPF Urine Bacteria NONE /LPF Imaging Data CT scan - abdomen: Attestation: I personally reviewed and interpreted this imaging study as follows: Radiologist's impression: FINDINGS: LUNG BASES: The visualized lung bases are unremarkable.? LIVER, GALLBLADDER, AND BILIARY TREE: The liver is normal in size, shape, and attenuation. Again seen are some hepatic cysts. No worrisome solid focal hepatic lesion or biliary ductal dilatation is present. Gallbladder is not present.? PANCREAS: Unremarkable.? SPLEEN: Unremarkable.? ADRENAL GLANDS: Unremarkable.? KIDNEYS AND URETERS: The kidneys are normal in size, shape, and attenuation. Renal cysts are present better appreciated on prior contrast-enhanced studies. No worrisome renal mass is present. No hydronephrosis, hydroureter, or calculi seen. No perinephric stranding. ? BLADDER: Unremarkable.? GASTROINTESTINAL TRACT: A large amount of stool is present in the rectum. The small and large bowel are unremarkable. The appendix is unremarkable.? ABDOMINAL WALL: No significant hernia is appreciated.? LYMPH NODES: No retroperitoneal lymphadenopathy. VASCULAR: Calcific plaque is present without aneurysm. PELVIC VISCERA: Uterus is not seen. An abnormal adnexal mass is not present. No free intraperitoneal fluid seen.? OSSEOUS STRUCTURES: Unremarkable.? CT/CT abdomen pelvis wo con IMPRESSION: A cause for the patient's right flank and abdominal pain has not been found. Incidental findings as described above.? ? Fleischner guidelines were followed. Discharge Plan Discharge Clinical Impression: Constipation, Abdominal pain Patient Disposition: Home, Self-Care Instructions: Constipation (ED), Abdominal Pain (ED) Additional Instructions: You were evaluated for abdominal pain. CT scan of the abdomen and pelvis indicates constipation. We gave you a dose of Mag citrate you were in the emergency department. Please considering using MiraLax and or Colace daily to help prevent constipation. Drink plenty of fluids. Follow-up with primary care physician. If constipation continues you may need to follow up with Gastroenterology if your primary care physician feels this is necessary. Thank you for choosing this emergency department for evaluation. Please follow-up with primary care physician as needed. Return to the emergency department for any new, concerning, or worsening symptoms. Prescriptions: No Action clonazepam 1 mg tablet 1 tab PO DAILY PRN (Reason: Anxiety) 0RF zolpidem 10 mg tablet 1 tab PO BEDTIME PRN (Reason: Insomnia) 0RF albuterol sulfate 90 mcg/actuation HFA aerosol inhaler 2 puff PO Q4-6H PRN (Reason: Shortness Of Breath) 0RF atorvastatin 10 mg tablet 10 mg PO BEDTIME 0RF buspirone 5 mg tablet 5 mg PO TID 0RF iuoleegqoh-wxfoisqwspkuw-mjxc 50-325-40 mg tablet 1 tab PO BID PRN (Reason: Migraine Headache) 0RF escitalopram oxalate 20 mg tablet 20 mg PO DAILY 0RF pantoprazole 40 mg tablet,delayed release (DR/EC) 40 mg PO BID 0RF dicyclomine 10 mg capsule 10 mg PO TID Qty: 90 1RF pregabalin [Lyrica] 75 mg capsule 75 mg PO BEDTIME Qty: 90 1RF tramadol 50 mg tablet 50 mg PO BID PRN (Reason: Pain) 0RF bisacodyl 5 mg tablet,delayed release (DR/EC) 5 mg PO BEDTIME 0RF Interventions: ED Discharge Assessment Last Done: 11/19/21 00:20 Discharge Date/Time: 11/19/21 00:21
[2021-11-18 22:26] VITALS: BP 164/86; PULSE 86; RESP 18; TEMP 36.3; O2SAT 98
--- NOTE | 2021-11-18 23:22 | PC.NURSE ---
PT ASKING FOR PAIN MED. NOTE LEFT FOR PROVIDER. PT UPDATED. PT WALKING IN ROOM, DRINKING SOMETHING BROUGHT IN FROM HOME AND TALKING ON PHONE.
--- NOTE | 2021-11-18 23:25 | PC.NURSE ---
PROVIDER OFFERED TYLENOL. PT STATES CAN NOT TAKE MOTRIN. PROVIDER TO ORDER TYLENOL.
[2021-11-18] MEDS: Acetaminophen 325 MG TABLET 975 MG PO (23:50)
[2021-11-18 23:55] VITALS: BP 145/79; PULSE 66; RESP 16
[2021-11-19] MEDS: Magnesium Citrate 300 ML SOLUTION PO (00:15)
== END 2021-11-19 00:21 | disposition home or self-care (01) ==
PROVIDERS: Emergency Provider Internal Medicine; PCP Family Medicine
DX: K59.00 Constipation, unspecified (principal); R10.9 Unspecified abdominal pain
CPT/HCPCS: 36415; 74176; 80048; 80076; 81001; 83690; 85025; 99284

== ENCOUNTER → 2021-12-03 13:49 | Outpatient (BNVA) | payer OTHER, SELFPAY | PROVIDERS: PCP Family Medicine; Visit Provider Physician Assistant | DX: M54.12 Radiculopathy, cervical region (principal); M96.1 Postlaminectomy syndrome, not elsewhere classified; R20.2 Paresthesia of skin; R20.0 Anesthesia of skin | CPT/HCPCS: 99202 ==

== ENCOUNTER → 2021-12-05 11:09 | Outpatient (BNVA) | payer OTHER, SELFPAY | PROVIDERS: PCP Family Medicine | DX: N39.0 Urinary tract infection, site not specified (principal); R31.9 Hematuria, unspecified | CPT/HCPCS: 99212 ==

== ENCOUNTER → 2021-12-20 14:33 | Outpatient (BNVA) | payer OTHER, SELFPAY | PROVIDERS: PCP Family Medicine; Visit Provider Nurse Practitioner Family | DX: M79.7 Fibromyalgia (principal) | CPT/HCPCS: 99212 ==

== ENCOUNTER 2022-04-01 10:18 | Outpatient (REF) | payer OTHER, SELFPAY ==
[2022-04-01 11:41] LABS: Free T4 (Free Thyroxine) 1.09 ng/dL (0.71-1.85); Thyroid Stimulating Hormone 1.02 uIU/mL (0.32-4.0)
== END 2022-04-01 10:19 | disposition home or self-care (01) ==
LOC: HO.10HDL 10:18
PROVIDERS: Visit Provider Internal Medicine Endocrinology, Diabetes & Metabolism
DX: E04.2 Nontoxic multinodular goiter (principal)
CPT/HCPCS: 36415; 84439; 84443

== ENCOUNTER 2022-04-04 12:36 | Outpatient (REF) | payer OTHER, SELFPAY ==
--- NOTE | ~2022-04-04 | XR_ITS ---
EXAMINATION: XR SACROILIAC JOINTS CLINICAL INFORMATION: Lumbago COMPARISON: None TECHNIQUE: 3 views of the sacroiliac joints FINDINGS: Bones and soft tissues are normal. No fracture. Alignment is anatomic. Sacroiliac joint spaces are well-maintained without erosions or surrounding sclerosis. XR/XR sacroiliac joint 1-2V IMPRESSION: Normal sacroiliac joints.
--- NOTE | ~2022-04-04 | US_ITS ---
EXAMINATION: US THYROID CLINICAL INFORMATION: Nontoxic multinodular goiter. COMPARISON: Ultrasound soft tissue head/neck thyroid dated 03/19/2021 and 02/02/2020. TECHNIQUE: Linear transducer grayscale and color Doppler examination with attention to the region of the thyroid. FINDINGS: SIZE: Measurements of the thyroid lobes and nodules are given in sagittal, anteroposterior and transverse dimensions respectively. Right Thyroid Lobe: 4.9 x 1.4 x 1.2 cm, volume 4.3 mL. Previously 4.6 x 1.2 x 1.5 cm, volume 4.2 mL. Parenchyma: The gland echotexture is homogeneous. Thyroid vascularity is increased. Left Thyroid Lobe: 5.5 x 1.3 x 1.4 cm, volume 5.2 mL. Previously 4.8 x 1.2 x 1.4 cm, volume 4.2 mL. Parenchyma: The gland echotexture is homogeneous. Thyroid vascularity is increased. Isthmus: 0.4 cm in maximum AP dimension. Previously 0.3 cm. Estimated total number of nodules greater than or equal to 1 cm: 3. Ct Manager nodules are described as follows: 1. Location: Right inferior. Size: 0.3 x 0.4 x 0.4 cm, volume 0.03 mL. Previously: 0.38 x 0.30 x 0.39 cm, volume 0.02 mL. Nodule characteristics: Composition: Solid/almost completely solid (2). Echogenicity: Hyperechoic (1). Shape: Not taller than wide (0). Margins: Smooth (0). Echogenic Foci: Peripheral calcifications (2). ACR TI-RADS total points: 5 Previous: 5 ACR TI-RADS category: 4 Previous: 4 Significant change in size (>/= 20% in 2 dimensions and minimal increase of 2 mm or 50% or greater increase in volume): Yes Change in features: No Change in ACR TI-RADS risk category: No 2. Location: Left superior. Size: 1.4 x 0.7 x 0.9 cm, volume 0.5 mL. Previously: 1.0 x 0.8 x 0.8 cm, volume 0.4 mL. Nodule characteristics: Composition: Solid (2). Echogenicity: Hypoechoic (2). Shape: Not taller than wide (0). Margins: Smooth (0). Echogenic Foci: None (0). ACR TI-RADS total points: 4 Previous: 4 ACR TI-RADS category: 4 Previous: 4 Significant change in size (>/= 20% in 2 dimensions and minimal increase of 2 mm or 50% or greater increase in volume): No Change in features: No Change in ACR TI-RADS risk category: No 3. Location: Left mid. Size: 0.3 x 0.2 x 0.3 cm, volume 0.01 mL. Previously: 0.3 x 0.2 x 0.3 cm, volume 0.01 mL. Nodule characteristics: Composition: Solid (2). Echogenicity: Hypoechoic (2). Shape: Not taller than wide (0). Margins: Smooth (0). Echogenic Foci: None (0). ACR TI-RADS total points: 4 Previous: 4 ACR TI-RADS category: 4 Previous: 4 Significant change in size (>/= 20% in 2 dimensions and minimal increase of 2 mm or 50% or greater increase in volume): No Change in features: No Change in ACR TI-RADS risk category: No 4. Location: Left inferior. Size: 1.6 x 1.1 x 1.7 cm, volume 1.6 mL. Previously: 1.4 x 0.8 x 1.2 cm, volume 0.78 mL. Nodule characteristics: Composition: Mixed cystic and solid (1). Echogenicity: Isoechoic (1). Shape: Not taller than wide (0). Margins: Smooth (0). Echogenic Foci: Comet-tail artifacts (0). ACR TI-RADS total points: 2 Previous: 2 ACR TI-RADS category: 2 Previous: 2 Significant change in size (>/= 20% in 2 dimensions and minimal increase of 2 mm or 50% or greater increase in volume): Yes Change in features: No Change in ACR TI-RADS risk category: No 5. Location: Inferior isthmus. Size: 1.7 x 1.1 x 1.6 cm, volume 1.6 mL. Previously: 0.9 x 0.5 x 1.3 cm, volume 0.3 mL. Nodule characteristics: Composition: Solid/almost completely solid (2). Echogenicity: Hypoechoic (2). Shape: Not taller than wide (0). Margins: Smooth (0). Echogenic Foci: Comet-tail artifacts (0). ACR TI-RADS total points: 4 Previous: 3 ACR TI-RADS category: 4 Previous: 3 Significant change in size (>/= 20% in 2 dimensions and minimal increase of 2 mm or 50% or greater increase in volume): Yes Change in features: Yes Change in ACR TI-RADS risk category: Yes NODES: No lymphadenopathy is seen in the tissue surrounding the thyroid gland. US/US thyroid IMPRESSION: 1. An increased, now 1.7 cm in maximal diameter thyroid isthmus nodule meets ACR biopsy criteria and is amenable to ultrasound-guided biopsy, if clinically indicated and not already performed. 2. There is increased thyroid vascularity, which can be associated with thyroiditis. ACR TI-RADS RECOMMENDATION REFERENCE: Ultrasound-guided fine-needle aspiration, followup ultrasound, no further follow up. * TR1 (0 point) and TR 2 (2 points): No FNA or follow up * TR3 (3 points): FNA if more than or equal to 2.5 cm in maximum dimension, followup ultrasound in 1, 3 and 5 years if 1.5 to 2.4 cm in maximum dimension. * TR4 (4-6 points): FNA if more than or equal to 1.5 cm in maximum dimension, followup ultrasound in 1, 2, 3 and 5 years if 1 to 1.4 cm in maximum dimension. * TR5 (more than or equal to 7 points): FNA if more than or equal to 1 cm in maximum dimension, followup ultrasound every year for 5 years if 0.5 to 0.9 cm in maximum dimension. * TR3, TR4 or TR5 nodules that are below the size threshold for follow up receive no follow up.
== END 2022-04-04 12:37 | disposition home or self-care (01) ==
LOC: HO.US 12:36
PROVIDERS: Absent Provider Physical Medicine & Rehabilitation; PCP Family Medicine; Visit Provider Internal Medicine
DX: E04.2 Nontoxic multinodular goiter (principal); M54.50 Low back pain, unspecified
CPT/HCPCS: 72200; 76536

== ENCOUNTER → 2022-04-09 07:58 | Outpatient (BNVA) | payer OTHER, SELFPAY | PROVIDERS: PCP Family Medicine; Visit Provider Internal Medicine Endocrinology, Diabetes & Metabolism | DX: E04.2 Nontoxic multinodular goiter (principal) | CPT/HCPCS: 99212 ==

== ENCOUNTER 2022-05-22 08:26 | Outpatient (REF) | payer OTHER, SELFPAY ==
--- NOTE | 2022-05-22 09:27 | PM.OP ---
Brief Operative Note Date of Service: 05/22/22 Pre-op diagnosis: Multinodular Thyroid Procedure: This is doctor Ana Laura Boggs. This is an ultrasound-guided fine-needle aspiration report. Date of Examination: Indication: Multinodular Thyroid Porcedure: Procedure was explained to the patient. Alternatives, the risk and benefits were discussed. Written consent was obtained. A time-out was also obtained. After sterile preparation, fine-needle aspiration of a left upper pole 1.4 cm thyroid nodule was performed using direct ultrasound guidance to confirm accurate needle placement. Three aspirations were made using 27 gauge needles. Samples were submitted for cytology. 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 Our attention was then turned to the left lower pole. Fine-needle aspiration of a left lower pole 1.6 cm thyroid nodule was performed using direct ultrasound guidance to confirm accurate needle placement. Four aspirations were made using 27 gauge needles. Samples were submitted for cytology. 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 Our attention was then turned to the isthmus. fine-needle aspiration of an isthmus 1.7 cm thyroid nodule was performed using direct ultrasound guidance to confirm accurate needle placement. Four aspirations were made using 27 gauge needles. Samples were submitted for cytology. 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 The patient tolerated the procedure well. Aftercare instructions were provided. Impression: Uncomplicated fine needle aspiration biopsy of a left upper pole 1.4 cm thyroid nodule, a left lower pole 1.6 cm thyroid nodule and an isthmus 1.7 cm thyroid nodule under ultrasound guidance. Surgeon: Ana Laura Boggs, DO Was an Biomass Production Manager used for this Procedure?: No Estimated blood loss (mL): 0
[2022-05-22] MEDS: Lidocaine HCl 1 % 20 ML VIAL SUBCUT (10:20)
== END 2022-05-22 08:27 | disposition home or self-care (01) ==
LOC: HO.US 08:26
PROVIDERS: Visit Provider Internal Medicine
DX: E04.2 Nontoxic multinodular goiter (principal)
CPT/HCPCS: 10005; 10006; 88172; 88173; 88305

== ENCOUNTER → 2022-06-06 10:23 | Outpatient (BNVA) | payer OTHER, SELFPAY | PROVIDERS: PCP Family Medicine; Visit Provider Internal Medicine Endocrinology, Diabetes & Metabolism | DX: E04.2 Nontoxic multinodular goiter (principal) | CPT/HCPCS: 99212 ==

== ENCOUNTER → 2022-07-14 13:28 | Outpatient (BNVA) | payer OTHER, SELFPAY | PROVIDERS: PCP Family Medicine; Visit Provider Internal Medicine Gastroenterology | DX: R10.12 Left upper quadrant pain (principal) | CPT/HCPCS: 99212 ==

== ENCOUNTER 2022-12-05 10:27 | Outpatient (REF) | payer OTHER, SELFPAY ==
[2022-12-05 16:55] LABS: Urine Cytology See Pathology rpt
== END 2022-12-05 10:28 | disposition home or self-care (01) ==
LOC: HO.LAB 10:27
PROVIDERS: PCP Family Medicine; Visit Provider Nurse Practitioner Family
DX: R31.29 Other microscopic hematuria (principal); N39.0 Urinary tract infection, site not specified
CPT/HCPCS: 51798; 88112; 99212

== ENCOUNTER 2022-12-25 10:01 | Outpatient (REF) | payer OTHER, SELFPAY ==
--- NOTE | ~2022-12-25 | US_ITS ---
EXAMINATION: US RETROPERITONEAL COMPLETE (RENAL) CLINICAL INFORMATION: Other microscopic hematuria. COMPARISON: CT abdomen and pelvis without contrast dated 11/18/2021. Ultrasound abdomen complete dated 11/19/2018. TECHNIQUE: Real-time imaging of the kidneys and bladder. FINDINGS: RIGHT KIDNEY: 8.7 x 4.2 x 5.0 cm (SAG x AP x TRV). The kidney is normal in size, contour, and echogenicity. Renal cortical thickness is normal. No renal calculi or hydronephrosis. There is an 8 mm simple cyst in the upper right kidney. No imaging follow-up is recommended. LEFT KIDNEY: 9.1 x 5.4 x 3.5 cm (SAG x AP x TRV). The kidney is normal in size, contour, and echogenicity. Renal cortical thickness is normal. No calculi or focal parenchymal lesions. No hydronephrosis. BLADDER: Well distended and normal. Bilateral ureteral jets are demonstrated. Prevoid bladder volume is 370 mL. Postvoid bladder volume is 19.2 mL. US/US retroperitoneal comp IMPRESSION: No nephrolithiasis or hydronephrosis.
== END 2022-12-25 10:02 | disposition home or self-care (01) ==
LOC: HO.US 10:01
PROVIDERS: PCP Family Medicine; Visit Provider Nurse Practitioner Family
DX: R31.29 Other microscopic hematuria (principal)
CPT/HCPCS: 76770

== ENCOUNTER → 2023-01-19 10:23 | Outpatient (BNVA) | payer OTHER, SELFPAY | PROVIDERS: PCP Family Medicine; Visit Provider Urology | DX: R31.29 Other microscopic hematuria (principal); N95.2 Postmenopausal atrophic vaginitis; N39.0 Urinary tract infection, site not specified | CPT/HCPCS: 52000; 99212 ==

== ENCOUNTER 2023-02-03 14:46 | Outpatient (REF) | payer OTHER, SELFPAY ==
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
== END 2023-02-03 14:47 | disposition home or self-care (01) ==
LOC: HO.HHCX 14:46
PROVIDERS: Visit Provider Family Medicine
DX: M25.561 Pain in right knee (principal)
CPT/HCPCS: 73562

== ENCOUNTER 2023-02-09 12:33 | Emergency (ER) | payer OTHER, SELFPAY ==
[2023-02-09 12:44] VITALS: BP 116/79; PULSE 84; RESP 19; TEMP 36.6; O2SAT 97; BMI 23.2
--- NOTE | 2023-02-09 12:49 | ED_ITS ---
HPI - General Adult General Chief complaint: Eye Problems Stated complaint: Loss of vision R eye Time Seen by Provider: 02/09/23 13:38 Source: patient Mode of arrival: ambulatory Limitations: no limitations History of Present Illness HPI narrative: 57-year-old female presents with vision loss out of her right eye. Symptoms started approximately 3 days ago. Started gradually. It has been progressively getting worse. She describes as blurred vision. Symptoms are moderate to severe in nature. There is no clear relieving or exacerbating features. She denies any pain or ocular discharge. She has never had anything like this before. Related Data Home Medications Medication Instructions Recorded Confirmed tramadol 50 mg tablet 50 mg PO BID PRN Pain 07/19/20 01/19/23 albuterol sulfate 90 mcg/actuation 2 puff PO Q4-6H PRN Shortness Of 09/04/20 01/19/23 aerosol inhaler Breath clonazepam 1 mg tablet 1 tab PO DAILY PRN Anxiety 09/04/20 01/19/23 zolpidem 10 mg tablet 1 tab PO BEDTIME PRN Insomnia 09/04/20 01/19/23 atorvastatin 10 mg tablet 10 mg PO BEDTIME 07/02/21 01/19/23 bisacodyl 5 mg tablet,delayed 5 mg PO BEDTIME 07/02/21 01/19/23 release buspirone 5 mg tablet 5 mg PO TID anxiety 07/02/21 01/19/23 ahtziexjwn-trkncqknwnnqe-nrxtvrfh 1 tab PO BID PRN Migraine Headache 07/02/21 01/19/23 50 mg-325 mg-40 mg tablet topiramate 25 mg tablet 25 mg PO DAILY PRN 04/09/22 01/19/23 docusate sodium 100 mg capsule 100 mg PO BID PRN 06/06/22 01/19/23 fluticasone propionate 110 1 puff inhalation BID 06/06/22 01/19/23 mcg/actuation HFA aerosol inhaler (Flovent HFA) loratadine 10 mg tablet 10 mg PO DAILY 06/06/22 01/19/23 sennosides 8.6 mg tablet (senna) 17.2 mg PO DAILY 07/14/22 01/19/23 escitalopram oxalate 10 mg tablet 10 mg PO DAILY 12/05/22 01/19/23 famotidine 40 mg tablet 40 mg PO BEDTIME 12/05/22 01/19/23 Previous Rx's Medication Instructions Recorded dicyclomine 10 mg capsule 10 mg PO TID #90 caps 08/20/20 lansoprazole 30 mg capsule,delayed 30 mg PO BID #60 caps 01/05/23 release estradiol 10 mcg vaginal tablet 10 mcg vaginal 2XW #24 tabs 01/19/23 (Vagifem) Allergies Allergy/AdvReac Type Severity Reaction Status Date / Time Iodinated Contrast Media Allergy Intermediate HIVES Verified 02/09/23 12:43 [CONTRAST, IV] iopromide [From ULTRAVIST] Allergy Mild HIVES Verified 02/09/23 12:43 ibuprofen [From MOTRIN] AdvReac Intermediate NAUSEA & Verified 02/09/23 12:43 VOMITING Review of Systems Review of Systems: CONSTITUTIONAL: Denies weight loss, fever and chills. HEENT: Positive vision changes RESPIRATORY: Denies SOB and cough. CV: Denies palpitations no CP. GI: Denies abdominal pain, nausea, vomiting and diarrhea. : Denies dysuria and urinary frequency. MSK: Denies myalgia and joint pain. SKIN: Denies rash and pruritus. NEUROLOGICAL: Denies headache and syncope. PSYCHIATRIC: Denies recent changes in mood. Denies anxiety and depression. All other ROS are negative unless in HPI PMFSH Past Medical History Medical History Arthritis Arthropathy of lumbar facet joint Asthma Depression Fibromyalgia GERD (gastroesophageal reflux disease) History of anxiety History of fibromyalgia History of headache Hyperlipidemia Lab test positive for detection of COVID-19 virus Non-toxic multinodular goiter Postlaminectomy syndrome, cervical Spondylosis of lumbosacral spine without myelopathy Surgical History History of biopsy History of colonoscopy History of esophagogastroduodenoscopy (EGD) Hx laparoscopic cholecystectomy Hx of cervical discectomy Hx of hysterectomy Family History Family History Father No problems noted. Mother History of heart attack Social History Social History Household Members: None Housing: Apartment Alcohol intake: never Patient Tobacco Use Status: Never used Tobacco Smoked in Last 30 Days: No Use of substances other than those prescribed or required for medical reasons: No Advance Directives: No Advance Directives Information Provided: Yes Physical Exam ED Vital Signs: Vital Signs - 24 hr 02/09/23 12:44 02/09/23 13:25 02/09/23 14:21 Temperature 98 F 98.6 F Pulse Rate 84 81 78 Respiratory Rate 19 18 18 Blood Pressure 116/79 121/78 110/69 Pulse Oximetry 97 100 99 Oxygen Delivery Method Room Air Room Air Room Air BMI result Body Mass Index 23.2 GEN: Well developed, no acute distress, alert, oriented HEENT: Normocephalic, atraumatic, normal external ears, nose appears normal Eyes: Normal to appearance, right pupil sluggish to light, extraocular muscles are intact, no conjunctival injection, ocular pressure from the right was 13, ocular pressure on the left was 9, loss of light reflex on the right eye Neck: Supple, no lymphadenopathy Respiratory: Talks in complete sentences, no respiratory distress Extremities: No clubbing cyanosis or edema Neurologic: No focal neurologic deficits, cranial nerves 2-12 intact, gait normal Skin: No rash Course Course Course Narrative: RME: 57 yold female states loss of vision in the right eye 3 days ago. patient states she can see from the side of her right eye, but can not see things in front of her. On physical exam left eye normal visual feilds. On right eye patient peripheral vision is intact, but no central vision. patient can not see in front of her with right eye. NO neuro deficits. patient also states before this happened 3 days ago she was seeing some starts. patient has allergy to IV dye. labs and head CT scan. Patient out of window for stroke. loss of vision occurred 3 days ago. Reevaluation(s) Reevaluation #1: Spoke with ophthalmology, will obtain a visual acuity. Ultrasound appears consistent with retinal detachment. History and physical are also consistent with this diagnosis. There is no evidence of glaucoma paced on ocular pressures. Time: 14:08 Reevaluation #2: [facility], no transfers available. Calling their building and construction manager manager hospital. Time: 14:27 Reevaluation #3: Spoke with Dr. rC of [facility], and he will see patient at [address] [facility] at 4:30 a.m. today. I foot atropine eye drops in her right eye so that he can further evaluate the retinal area. This was discussed with the patient. She is agreeable to discharge in follow-up at the office at 4:30 p.m.. Time: 15:36 Medications Administered Discontinued Medications Generic Name Dose Route Start Last Admin Trade Name Ramon PRN Reason Stop Dose Admin Atropine Sulfate 1 drop 02/09/23 14:23 02/09/23 14:44 Atropine Sulfate 1 % Ophth Sandra 2 Ml Bottle EYE-RIGHT 02/09/23 14:24 1 drop ONCE ONE Administration Procedures Procedure Narrative Procedure Narrative: Ocular ultrasound: Right eye consistent with retinal detachment Medical Decision Making Medical Decision Making [facility] Narrative: Patient presents with painless vision loss out of the right eye. Examination revealed loss of 3 light reflex on the right eye, normal pressures bilaterally, ultrasound consistent with retinal detachment. There is no evidence of acute closed angle glaucoma. There is no trauma. Globe appears intact. I will contact Ophthalmology. Differential Diagnosis Differential Diagnoses: The differential diagnosis associated with the presentation includes (Retinal detachment, iritis, uveitis, lens dislocation) Retinal detachment Consult Healthcare Provider Management of the patient was discussed with: Sammying Machine Operator (Ophthalmology) Lab Data [facility] Lab Attestation statement: I reviewed the patient's lab results. 02/09/23 13:11 02/09/23 13:11 Labs: Lab Results 02/09/23 02/09/23 02/09/23 Range/Units 13:11 13:11 13:11 WBC 7.0 (4.8-10.8) X10*3/uL RBC 3.86 L (4.20-5.50) X10*6/uL Hgb 11.7 L (12.0-16.0) g/dl Hct 35.2 L (37.0-47.0) % MCV 91.2 (80.0-98.0) fL MCH 30.3 (27.0-33.0) pg MCHC 33.2 (31.0-35.0) g/dl RDW 12.6 (11.0-16.0) % Plt Count 277 (160-400) X10*3/uL MPV 8.9 L (9.4-12.3) fL Immature Gran % (Auto) 0.1 (0.0-0.4) % Neut % (Auto) 53.8 (45-73) % Lymph % (Auto) 38.7 (20-40) % Hardeman % (Auto) 6.3 (2-11) % Eos % (Auto) 0.7 (0-4) % Baso % (Auto) 0.4 (0-2) % Lymph # (Auto) 2.7 (1.2-4.9) X10*3/uL Hardeman # (Auto) 0.4 (0.1-1.2) X10*3/uL Eos # (Auto) 0.1 (0.0-0.4) X10*3/uL Baso # (Auto) 0.0 (0.0-0.2) X10*3/uL Abs Immat Gran (auto) 0.01 (0.00-0.03) X10*3/uL Absolute Neuts (auto) 3.8 (2.0-8.3) x10*3/uL Absolute Nucleated RBC 0.000 (0.0-0.012) X10*3/uL Nucleated RBC % (auto) 0.0 (0.0-0.2) /100WBC PT 11.2 (10.0-13.1) SEC INR 1.0 (0.9-1.1) APTT 26.1 (26.0-36.4) SEC Sodium 142 (135-145) mmol/L Potassium 3.9 (3.3-5.1) mmol/L Chloride 106 (96-108) mmol/L Carbon Dioxide 25 (22-29) mmol/L Anion Gap 15 (12-20) BUN 16 (9-16) mg/dL Creatinine 0.77 (0.5-1.4) mg/dL Estim Creat Clear Calc 60.1 Estimated GFR > 60 Random Glucose 95 (60-115) mg/dL Calcium 9.8 (8.4-10.2) mg/dL Total Bilirubin 0.3 (0.0-1.0) mg/dL AST 17 (5-31) U/L ALT 12 (0-31) U/L Alkaline Phosphatase 80 (39-117) U/L Total Protein 7.9 (6.5-8.0) g/dL Albumin 4.2 (3.5-5.0) g/dL Tests considered The following testing was considered but not selected: CT head Prescription Management I considered prescription management with: Other (Eyedrops) Discharge Plan Discharge Clinical Impression: Retinal detachment Patient Disposition: Home, Self-Care Instructions: Surgery for Retinal Detachment (DC) Additional Instructions: Follow up today with Dr. Cr, manager hospital [address] [place] [address] [id number] 4:30 PM Today Prescriptions: No Action lansoprazole 30 mg capsule,delayed release(DR/EC) 30 mg PO BID Qty: 60 2RF clonazepam 1 mg tablet 1 tab PO DAILY PRN (Reason: Anxiety) zolpidem 10 mg tablet 1 tab PO BEDTIME PRN (Reason: Insomnia) albuterol sulfate 90 mcg/actuation HFA aerosol inhaler 2 puff PO Q4-6H PRN (Reason: Shortness Of Breath) atorvastatin 10 mg tablet 10 mg PO BEDTIME buspirone 5 mg tablet 5 mg PO TID akxryqntjw-ifocxgrlvjgqp-tdur 50-325-40 mg tablet 1 tab PO BID PRN (Reason: Migraine Headache) dicyclomine 10 mg capsule 10 mg PO TID Qty: 90 1RF tramadol 50 mg tablet 50 mg PO BID PRN (Reason: Pain) bisacodyl 5 mg tablet,delayed release (DR/EC) 5 mg PO BEDTIME docusate sodium 100 mg capsule 100 mg PO BID PRN fluticasone propionate [Flovent HFA] 110 mcg/actuation HFA aerosol inhaler 1 puff inhalation BID loratadine 10 mg tablet 10 mg PO DAILY topiramate 25 mg tablet 25 mg PO DAILY PRN escitalopram oxalate 10 mg tablet 10 mg PO DAILY famotidine 40 mg tablet 40 mg PO BEDTIME sennosides [senna] 8.6 mg tablet 17.2 mg PO DAILY estradiol [Vagifem] 10 mcg tablet 10 mcg vaginal 2XW Qty: 24 2RF Rx Instructions: use 2 times a week at bedtime, Mon/Thurs Referrals: Prasanth Wayne [Physician] -
[2023-02-09 13:14] LABS: MANUAL DIFF FLAG NO
[2023-02-09 13:16] LABS: Basophils Percent Auto 0.4 % (0-2); Eosinophils Absolute Auto 0.1 X10*3/uL (0.0-0.4); Eosinophils Percent Auto 0.7 % (0-4); Hematocrit 35.2 % (37.0-47.0); Hemoglobin 11.7 g/dl (12.0-16.0); Imm Gran Abs Auto 0.01 X10*3/uL (0.00-0.03); Imm Gran Pct Auto 0.1 % (0.0-0.4); Lymphocytes Absolute Auto 2.7 X10*3/uL (1.2-4.9); Lymphocytes Percent Auto 38.7 % (20-40); Mean Corpuscular HGB Conc 33.2 g/dl (31.0-35.0); Mean Corpuscular Hemoglobin 30.3 pg (27.0-33.0); Mean Corpuscular Volume 91.2 fL (80.0-98.0); Mean Platelet Volume 8.9 fL (9.4-12.3); Monocytes Absolute Auto 0.4 X10*3/uL (0.1-1.2); Monocytes Percent Auto 6.3 % (2-11); Neutrophils Absolute Auto 3.8 x10*3/uL (2.0-8.3); Neutrophils Percent Auto 53.8 % (45-73); Platelet Count 277 X10*3/uL (160-400); Red Blood Count 3.86 X10*6/uL (4.20-5.50); Red Cell Distribution Width 12.6 % (11.0-16.0)
[2023-02-09 13:22] LABS: Prothrombin Time 11.2 SEC (10.0-13.1)
[2023-02-09 13:24] LABS: Partial Thromboplastin Time 26.1 SEC (26.0-36.4)
[2023-02-09 13:25] VITALS: BP 121/78; PULSE 81; RESP 18; O2SAT 100
[2023-02-09 13:33] LABS: Alanine Aminotransferase 12 U/L (0-31); Albumin Level 4.2 g/dL (3.5-5.0); Alkaline Phosphatase 80 U/L (39-117); Anion Gap 15 (12-20); Aspartate Amino Transferase 17 U/L (5-31); Bilirubin Total 0.3 mg/dL (0.0-1.0); Blood Urea Nitrogen 16 mg/dL (9-16); Calcium 9.8 mg/dL (8.4-10.2); Carbon Dioxide 25 mmol/L (22-29); Chloride 106 mmol/L (96-108); Creatinine Clr Calc Pharmacy 60.1; Estimated Glomerular Filt Rate > 60; Glucose Random 95 mg/dL (60-115); Potassium 3.9 mmol/L (3.3-5.1); Sodium 142 mmol/L (135-145); Total Protein 7.9 g/dL (6.5-8.0)
[2023-02-09 14:21] VITALS: BP 110/69; PULSE 78; RESP 18; TEMP 37; O2SAT 99
--- NOTE | 2023-02-09 14:34 | MHC.EDTECH ---
called [facility] tx line @ 2:17. [facility] refused tx
--- NOTE | 2023-02-09 14:36 | MHC.EDTECH ---
Called [facility] spoke to Fiona @2:31 gave demographics & diagnosis: Dr. Cr will call Dr. Carlos back
[2023-02-09] MEDS: Atropine Sulfate 1 % Ophth Sol 2 ML BOTTLE 1 DROP EYE-RIGHT (14:44)
--- NOTE | 2023-02-09 14:52 | MHC.EDTECH ---
called [facility] transfer line @ 2:50 gave demographics & diagnosis and left message for a call back to Dr. Carlos
[2023-02-09 15:55] VITALS: BP 105/72; PULSE 72; RESP 16; TEMP 36.7; O2SAT 99
== END 2023-02-09 15:59 | disposition home or self-care (01) ==
PROVIDERS: Physician Assistant; Emergency Provider Emergency Medicine; PCP Family Medicine
DX: H33.21 Serous retinal detachment, right eye (principal); H54.61 Unqualified visual loss, right eye, normal vision left eye; Z79.899 Other long term (current) drug therapy
CPT/HCPCS: 36415; 80053; 85025; 85610; 85730; 99283; 99284

== ENCOUNTER → 2023-03-09 09:02 | Outpatient (BNVA) | payer OTHER, SELFPAY | PROVIDERS: Visit Provider Internal Medicine Gastroenterology | DX: K59.00 Constipation, unspecified (principal); K21.9 Gastro-esophageal reflux disease without esophagitis | CPT/HCPCS: 99212 ==

== ENCOUNTER 2023-04-01 10:05 | Outpatient (AMB) | payer OTHER, SELFPAY ==
--- NOTE | 2023-04-01 08:23 | A.OFFVIS_ITS ---
Intake Intake Visit Reasons: 10w/hematuria/vaginal atropy/recurrent UTI's Intake Note: Patient presents today for a follow-up on Hematuria, Vaginal Atrophy & Recurrent UTI's: Meds- Estradiol Allergies to Antibiotic- None Blood Thinner- None PVR- Head Of Store Operations Required: No Accompanied by: Self / Same As Patient Allergies Iodinated Contrast Media [CONTRAST, IV] Allergy (Intermediate, Verified 04/01/23 10:10) HIVES iopromide [From ULTRAVIST] Allergy (Mild, Verified 04/01/23 10:10) HIVES ibuprofen [From MOTRIN] Adverse Reaction (Intermediate, Verified 04/01/23 10:10) NAUSEA & VOMITING HPI HPI Comments History of Present Illness Details Kj is a 57-year-old female who presents to the clinic today for a follow-up. LV--01/19/23-- Renal US results reviewed?12/25/22-- 8 mm simple cyst in the upper pole of the right kidney. Kidneys: WNL. Urine cytology results reviewed?12/05/22-- Negative for malignancy. 04/01/23? Kj is a 57-year-old female who has a longstanding history of microscopic hematuria and recurrent UTIs. She was last seen on 01/19/23 for office cystoscopy. Pelvic exam was notable for vaginal atrophy. Cyscopy findings-- Mild bladder wall thickening. She was prescribed vagifem suppositories. The patient states that she has been using the vagifem suppositories and she was able to use it twice a week. She did have fever 2 weeks ago and was evaluated by a nurse and said that her urine was infected and was treated with antibiotic once a day for 10 days. She also has low-back pain Evaluation today? UA today -- Blood: 2+. Leukocytes: negative. Plan: Recommended to continue using the vagifem suppositories and start taking klyi-zak-fgqeetx Cranberry supplements. Follow up in 6 months. [facility] Medical History Arthritis Arthropathy of lumbar facet joint Asthma Depression Fibromyalgia GERD (gastroesophageal reflux disease) History of anxiety History of fibromyalgia History of headache Hyperlipidemia Lab test positive for detection of COVID-19 virus Non-toxic multinodular goiter Postlaminectomy syndrome, cervical Spondylosis of lumbosacral spine without myelopathy Surgical History History of biopsy History of colonoscopy History of esophagogastroduodenoscopy (EGD) Hx laparoscopic cholecystectomy Hx of cervical discectomy Hx of hysterectomy Family History Father No problems noted. Mother History of heart attack Social History Household Members: None Housing: Apartment Alcohol intake: never Patient Tobacco Use Status: Never used Tobacco Review of Systems Const All systems reviewed & are unremarkable except as noted in HPI and below Reports no additional complaints Eyes Reports no additional complaints ENT Reports no additional complaints Card Denies dyspnea Resp Denies cough and Denies dyspnea GI Reports no additional complaints Reports no additional complaints Musc Reports no additional complaints Skin/Breast Denies rash and Denies unusual bruising Neuro Reports no additional complaints Psych Reports no additional complaints Endo Reports no additional complaints Raman/Lymph Reports no additional complaints Aller/Immun Reports no additional complaints Physical Exam Const General: cooperative, healthy appearing and no acute distress Orientation/consciousness: patient oriented x3 HEENT Head: Yes normal to inspection, Yes normocephalic and Yes atraumatic Eyes Conjunctivae: conjunctivae normal Neck Neck: Yes normal visual inspection and Yes trachea midline Chest Chest palpation & inspection: normal inspection of the chest Resp Effort & Inspection: normal respiratory effort Cardio Rate: regular rate GI Inspection: Yes normal to inspection Skin General skin exam: no rashes or lesions noted Neuro General: patient oriented x3 Extrem General: No edema Psych Appearance: grossly normal Results AMB Urinalysis, Automated UA Leukoctes 0 Maame/uL Last Edit by BENTLEY Schafer on 04/01/23 10:28 UA Nitrite Negative Last Edit by BENTLEY Schafer on 04/01/23 10:28 UA Urobilinogen 0.2 mg/dL Last Edit by BENTLEY Schafer on 04/01/23 10:2 8 UA Protein 15 mg/dL Last Edit by BENTLEY Schafer on 04/01/23 10:28 UA pH 6.0 Last Edit by Tisha Lynch Rasheeda on 04/01/23 10:28 UA Blood 80 Steve/uL Last Edit by Tisha Lynch Rasheeda on 04/01/23 10:28 2+ Tisha Lynch 04/01/23 10:28 UA Specific Canmer 1.025 Last Edit by Tisha Lynch Rasheeda on 04/01/23 10: 28 UA Ketone Negative Last Edit by BENTLEY Schafer on 04/01/23 10:28 UA Bilirubin 1 mg/dL Last Edit by Tisha Lynch [facility] on 04/01/23 10:28 1+ Tisha Lynch 04/01/23 10:28 UA Glucose 0 mg/dL Last Edit by Tisha Lynch Rasheeda on 04/01/23 10:28 Results Reviewed Results Reviewed: Laboratory Last Values Urine pH (Auto) 6.0 04/01/23 10:08 Specific Canmer (Auto) 1.025 04/01/23 10:08 Urine Protein (Auto) 15 mg/dL 04/01/23 10:08 Glucose (UA)(Auto) 0 mg/dL 04/01/23 10:08 Urine Ketones (Auto) Negative 04/01/23 10:08 Urine Blood (Auto) 80 Steve/uL 04/01/23 10:08 Urine Nitrite (Auto) Negative 04/01/23 10:08 Urine Bilirubin (Auto) 1 mg/dL 04/01/23 10:08 Urine Urobilinogen (Auto) 0.2 mg/dL 04/01/23 10:08 Leukocyte Esterase (Auto) 0 Maame/uL 04/01/23 10:08 Date 12/25/22 FINDINGS: RIGHT KIDNEY: 8.7 x 4.2 x 5.0 cm (SAG x AP x TRV). The kidney is normal in size, contour, and echogenicity. Renal cortical thickness is normal. No renal calculi or hydronephrosis. There is an 8 mm simple cyst in the upper right kidney. No imaging follow-up is recommended. LEFT KIDNEY: 9.1 x 5.4 x 3.5 cm (SAG x AP x TRV). The kidney is normal in size, contour, and echogenicity. Renal cortical thickness is normal. No calculi or focal parenchymal lesions. No hydronephrosis. BLADDER: Well distended and normal. Bilateral ureteral jets are demonstrated. Prevoid bladder volume is 370 mL. Postvoid bladder volume is 19.2 mL. IMPRESSION: No nephrolithiasis or hydronephrosis. Assessment & Plan Assessment & Plan (1) Vaginal atrophy: Code(s): N95.2 - Postmenopausal atrophic vaginitis (2) Recurrent urinary tract infection: Code(s): N39.0 - Urinary tract infection, site not specified (3) Microhematuria: Code(s): R31.29 - Other microscopic hematuria Orders: Orders AMB Urinalysis Automated Today Z13.9 - Encounter for screening, unspecified AMB Post Void Residual by ultrasound Today N39.8 - Other specified disorders of urinary system Medications: New cranberry extract administer with meals 425 mg PO BID 60 caps 3RF Refilled estradiol (Vagifem) use 2 times a week at bedtime, Mon/Thurs 10 mcg vaginal 2XW 24 tabs 2RF Patient Instructions: The patient had an opportunity to ask questions regarding treatment plan. All questions were answered. Imaging, Laboratory studies and physical exam results were discussed and reviewed in detail. No major barriers to understanding were identified. The patient expressed understanding and agreement with the above treatment plan. The patient is aware they should contact our office by phone for worsening of their current condition or the appearance of new symptoms. Compliance is encouraged with any medications and followup testing that is ordered. It is a privilege to be allowed the opportunity to participate in the urologic care of your patient. If you have any questions or concerns regarding treatment for the above conditions please do not hesitate to contact me. The office telephone contact is [phone]. This note is constructed in part using voice recognition software. While every effort has been made to ensure accuracy electron microprobe operator errors may have been included. Yours sincerely, Chela Almaguer MD Coding Level of Care Code Est Pt Level 3 (34729) Diagnoses Vaginal atrophy N95.2 Recurrent urinary tract infection N39.0 Microhematuria R31.29
== END 2023-04-01 10:36 | disposition home or self-care (01) ==
PROVIDERS: Visit Provider Urology
DX: N95.2 Postmenopausal atrophic vaginitis (principal); N39.0 Urinary tract infection, site not specified; R31.29 Other microscopic hematuria
CPT/HCPCS: 99213

== ENCOUNTER → 2023-04-01 10:05 | Outpatient (BNVA) | payer OTHER, SELFPAY | PROVIDERS: Visit Provider Urology | DX: N95.2 Postmenopausal atrophic vaginitis (principal); N39.0 Urinary tract infection, site not specified; R31.29 Other microscopic hematuria | CPT/HCPCS: 99212 ==

== ENCOUNTER 2023-04-24 12:24 | Outpatient (REF) | payer OTHER, SELFPAY ==
--- NOTE | ~2023-04-24 | XR_ITS ---
EXAMINATION: XR LUMBOSACRAL SPINE WITH OBLIQUES CLINICAL INFORMATION: Acute exacerbation of chronic low back pain for a month COMPARISON: August 1621 TECHNIQUE: AP, both oblique, and lateral views of the lumbar spine. Lateral view of the lumbosacral junction. FINDINGS: There is no interval change in appearance of mild narrowing cough L4-L5 intervertebral disc space with grade 1 anterior listhesis. Pedicles are preserved. There aren't changes of arthropathy at the level of L5-S1 on the left XR/XR lumbar spine 4V min IMPRESSION: Mild degenerative changes at the level of L4-L5 with grade 1 anterolisthesis.
== END 2023-04-24 12:25 | disposition home or self-care (01) ==
LOC: HO.HHCX 12:24
PROVIDERS: Visit Provider Internal Medicine
DX: M54.50 Low back pain, unspecified (principal)
CPT/HCPCS: 72110

== ENCOUNTER 2023-04-28 14:53 | Outpatient (REF) | payer OTHER, SELFPAY ==
--- NOTE | ~2023-04-28 | US_ITS ---
EXAMINATION: US RETROPERITONEAL COMPLETE (RENAL) CLINICAL INFORMATION: Acute low back pain, urinary frequency, history of kidney stones. COMPARISON: Ultrasound kidneys and bladder 12/25/2022. CT abdomen and pelvis 11/18/2021. Ultrasound abdomen complete 06/12/2020. X-ray abdomen 10/24/2019. TECHNIQUE: Real-time imaging of the kidneys and bladder. FINDINGS: RIGHT KIDNEY: 9.1 x 3.9 x 5.8 cm (SAG x AP x TRV). The kidney is normal in size, contour, and echogenicity. Renal cortical thickness is normal. No renal calculi or hydronephrosis. 0.7 x 0.6 x 0.7 cm simple cyst is seen in the upper pole. No follow-up imaging of this finding is recommended. LEFT KIDNEY: 9.2 x 4.7 x 4.9 cm (SAG x AP x TRV). The kidney is normal in size, contour, and echogenicity. Renal cortical thickness is normal. No renal calculi or hydronephrosis. 1.0 x 0.8 x 1.1 cm simple cyst is seen in the lower pole. No follow-up imaging of this finding is recommended. BLADDER: Well distended and normal. Bilateral ureteral jets are demonstrated. Prevoid bladder volume is 282 mL. Postvoid bladder volume is 12 mL. US/US retroperitoneal comp IMPRESSION: 1. No significant finding within the kidneys. No renal calculi. 2. Minimal post void residual.
== END 2023-04-28 14:54 | disposition home or self-care (01) ==
LOC: HO.HMGCX 14:53
PROVIDERS: PCP Family Medicine; Visit Provider Internal Medicine
DX: M54.50 Low back pain, unspecified (principal); G89.29 Other chronic pain; R39.9 Unspecified symptoms and signs involving the genitourinary system
CPT/HCPCS: 76770

== ENCOUNTER 2023-05-19 18:06 | Outpatient (REF) | payer OTHER, SELFPAY ==
--- NOTE | ~2023-05-19 | MR_ITS ---
EXAMINATION: MR LUMBAR SPINE WITHOUT CONTRAST CLINICAL INFORMATION: Chronic bilateral back pain, left leg pain, weakness, and numbness COMPARISON: MRI lumbar spine 03/28/2019 TECHNIQUE: MRI of the lumbar spine was obtained using routine sequences without contrast. FINDINGS: In keeping with numbering on prior MRI from 2019, the last well-formed disc space is designated L4-L5 with sacralization of L5 and rudimentary disc at L5-S1. T12 corresponds to the last rib-bearing vertebra using this numbering convention. Trace anterolisthesis of L3 on L4. Mild leftward curvature of the lumbar spine. No suspicious marrow signal or focal osseous lesion. The vertebral body heights are maintained. Mild multilevel disc desiccation and height loss. The conus medullaris terminates at the level of L1-L2. The distal spinal cord is normal in appearance. The cauda equina nerve roots appear normal. No significant abnormalities of the paraspinal musculature. Limited evaluation of the intra-abdominal structures without significant abnormalities. Small left renal cyst. The abdominal aorta is of normal contour and caliber. Small left-sided sacral Tarlov cysts. SPINAL LEVELS: L1-L2: No significant spinal canal or neuroforaminal narrowing. L2-L3: Shallow right eccentric disc bulge. Mild facet arthropathy. No significant central spinal canal stenosis. Stable mild right neural foraminal narrowing L3-L4: Trace anterolisthesis. Shallow disc bulge, mild to moderate facet arthropathy stable bilateral subarticular zone narrowing and mild bilateral neural foraminal narrowing. Stable abutment of the exiting right L3 nerve root by a right extraforaminal component of disc bulge. L4-L5: No significant spinal canal or neuroforaminal narrowing. Moderate facet arthropathy. Shallow disc bulge. L5-S1: No significant spinal canal or neuroforaminal narrowing. MR/MR lumbar spine wo con IMPRESSION: 1. Transitional lumbosacral anatomy with sacralization of L5 and rudimentary disc at L5-S1. 2. Mild multilevel lumbar spondylosis has not significantly progressed compared to MRI from 2019. No significant central spinal canal stenosis or high-grade neural foraminal narrowing. At L3-L4, there is trace anterolisthesis with stable bilateral subarticular zone narrowing, mild bilateral neural foraminal narrowing, and abutment of the extraforaminal right L3 nerve root by disc material.
== END 2023-05-19 18:07 | disposition home or self-care (01) ==
LOC: HO.MRI 18:06
PROVIDERS: PCP Family Medicine; Visit Provider Registered Nurse
DX: M54.50 Low back pain, unspecified (principal); G89.29 Other chronic pain
CPT/HCPCS: 72148

== ENCOUNTER 2023-05-20 08:13 | Outpatient (REF) | payer OTHER, SELFPAY ==
[2023-05-20 11:19] LABS: Urine Cytology See Pathology rpt
[2023-05-20 11:47] LABS: MANUAL DIFF FLAG NO
[2023-05-20 11:50] LABS: Basophils Percent Auto 0.7 % (0-2); Eosinophils Absolute Auto 0.1 X10*3/uL (0.0-0.4); Eosinophils Percent Auto 0.8 % (0-4); Hematocrit 33.8 % (37.0-47.0); Hemoglobin 11.1 g/dl (12.0-16.0); Imm Gran Abs Auto 0.02 X10*3/uL (0.00-0.03); Imm Gran Pct Auto 0.3 % (0.0-0.4); Lymphocytes Absolute Auto 2.9 X10*3/uL (1.2-4.9); Lymphocytes Percent Auto 47.5 % (20-40); Mean Corpuscular HGB Conc 32.8 g/dl (31.0-35.0); Mean Corpuscular Volume 94.4 fL (80.0-98.0); Mean Platelet Volume 9.6 fL (9.4-12.3); Monocytes Absolute Auto 0.5 X10*3/uL (0.1-1.2); Monocytes Percent Auto 7.6 % (2-11); Neutrophils Absolute Auto 2.6 x10*3/uL (2.0-8.3); Neutrophils Percent Auto 43.1 % (45-73); Platelet Count 294 X10*3/uL (160-400); Red Blood Count 3.58 X10*6/uL (4.20-5.50); Red Cell Distribution Width 12.8 % (11.0-16.0); White Blood Count 6.1 X10*3/uL (4.8-10.8)
[2023-05-20 12:10] LABS: Estimated Average Glucose 97 mg/dL
[2023-05-20 13:02] LABS: Alanine Aminotransferase 11 U/L (0-31); Albumin Level 3.6 g/dL (3.5-5.0); Alkaline Phosphatase 61 U/L (39-117); Anion Gap 10 (12-20); Aspartate Amino Transferase 20 U/L (5-31); Bilirubin Direct < 0.2 mg/dL (0.0-0.5); Bilirubin Total 0.2 mg/dL (0.0-1.0); Blood Urea Nitrogen 16 mg/dL (9-16); Calcium 8.8 mg/dL (8.4-10.2); Carbon Dioxide 30 mmol/L (22-29); Chloride 107 mmol/L (96-108); Cholesterol 214 mg/dL (<200); Estimated Glomerular Filt Rate > 60; Free T4 (Free Thyroxine) 0.92 ng/dL (0.71-1.85); Glucose Random 90 mg/dL (60-115); HDL Cholesterol 65 mg/dL (>40); LDL Cholesterol Calculated 131 mg/dL (<100); Potassium 3.5 mmol/L (3.3-5.1); Sodium 143 mmol/L (135-145); Thyroid Stimulating Hormone 3.09 uIU/mL (0.32-4.0); Total Protein 6.9 g/dL (6.5-8.0); Triglycerides 92 mg/dL (<150); Vitamin D 25-OH Total 26.3 ng/mL (>30)
[2023-05-20 13:09] LABS: CT PCR NOT DETECTED (Not Detect.); NG PCR NOT DETECTED (Not Detect.)
[2023-05-21 08:47] LABS: HBS Num1 2.04 mIU/mL (0-7.99); HBsAGNum1 0.35 S/CO (0.00-0.99); Hepatitis B Surface Antigen Negative (Negative); ~Hepatitis B Surface Antibody NONREACTIVE (Nonreactive)
[2023-05-21 09:00] LABS: ~HepC Num1 0.11 S/CO (0.00-0.79); ~Hepatitis C Antibody Nonreactive (Nonreactive)
[2023-05-22 08:14] LABS: RPR Rapid Plasma Reagin NON-REACTIVE (NON-REACTIVE)
[2023-05-26 20:43] LABS: Hepatitis C Genotype Not Detected
== END 2023-05-20 08:14 | disposition home or self-care (01) ==
LOC: HO.HMGCLDS 08:13
PROVIDERS: PCP Family Medicine; Visit Provider Family Medicine
DX: E78.5 Hyperlipidemia, unspecified (principal); R31.29 Other microscopic hematuria; Z20.2 Contact with and (suspected) exposure to infections with a predominantly sexual mode of transmission; E55.9 Vitamin D deficiency, unspecified; E04.2 Nontoxic multinodular goiter; M79.7 Fibromyalgia
CPT/HCPCS: 0353U; 80048; 80061; 80076; 82306; 83036; 84439; 84443; 85025; 86592; 86706; 86803; 87340; 87902; 88112

== ENCOUNTER → 2023-06-09 10:54 | Outpatient (BNVA) | payer OTHER, SELFPAY | PROVIDERS: Visit Provider Internal Medicine Endocrinology, Diabetes & Metabolism | DX: E04.2 Nontoxic multinodular goiter (principal); R13.10 Dysphagia, unspecified | CPT/HCPCS: 99212 ==

== ENCOUNTER 2023-06-10 09:27 | Outpatient (REF) | payer OTHER, SELFPAY | END 2023-06-10 09:28 | disposition home or self-care (01) | LOC: HO.MAMMO 09:27 | PROVIDERS: PCP Family Medicine; Visit Provider Family Medicine | DX: Z12.31 Encounter for screening mammogram for malignant neoplasm of breast (principal) | CPT/HCPCS: 77063; 77067 ==

== ENCOUNTER → 2023-06-10 10:00 | Outpatient (BNV) | payer OTHER, SELFPAY | PROVIDERS: PCP Family Medicine; Visit Provider Radiology Diagnostic Radiology | DX: Z12.31 Encounter for screening mammogram for malignant neoplasm of breast (principal) | CPT/HCPCS: 77063; 77067 ==

== ENCOUNTER 2023-06-16 08:37 | Outpatient (REF) | payer OTHER, SELFPAY ==
--- NOTE | ~2023-06-16 | US_ITS ---
EXAMINATION: US THYROID CLINICAL INFORMATION: Nontoxic multinodular goiter. COMPARISON: Thyroid ultrasound 04/04/2022 and 03/19/2021. Ultrasound-guided thyroid biopsy 05/22/2022. TECHNIQUE: Linear transducer grayscale and color Doppler examination with attention to the region of the thyroid. FINDINGS: SIZE: Measurements of the thyroid lobes and nodules are given in sagittal, anteroposterior and transverse dimensions respectively. Right Thyroid Lobe: 5.0 x 1.3 x 1.5 cm, volume 5.1 mL. Previously 4.9 x 1.4 x 1.2 cm, volume 4.3 mL. Parenchyma: The gland echotexture is homogeneous. Thyroid vascularity is increased. Left Thyroid Lobe: 5.3 x 1.5 x 1.2 cm, volume 5.0 mL. Previously 5.5 x 1.3 x 1.4 cm, volume 5.2 mL. Parenchyma: The gland echotexture is heterogeneous. Thyroid vascularity is increased. Isthmus: 0.4 cm in maximum AP dimension. Previously 0.4 cm. Estimated total number of nodules greater than or equal to 1 cm: 3. 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 Location: Lower pole isthmus. Size: 1.7 x 0.9 x 1.2 cm, volume 0.9 mL. Previously: 1.7 x 1.1 x 1.6 cm, volume 1.6 mL. Nodule characteristics: Composition: Solid/almost completely solid (2). Echogenicity: Hypoechoic (2). Shape: Not taller than wide (0). Margins: Smooth (0). Echogenic Foci: Comet-tail artifacts (0). ACR TI-RADS total points: 4 Previous: 4 ACR TI-RADS category: 4 Previous: 4 Significant change in size (>/= 20% in 2 dimensions and minimal increase of 2 mm or 50% or greater increase in volume): No Change in features: No Change in ACR TI-RADS risk category: No 2. Location: Right lower pole. Size: 0.4 x 0.3 x 0.4 cm, volume 0.02 mL. Previously: 0.3 x 0.4 x 0.4 cm, volume 0.03 mL. Nodule characteristics: Composition: Solid/almost completely solid (2). Echogenicity: Hyperechoic (1). Shape: Not taller than wide (0). Margins: Smooth (0). Echogenic Foci: Peripheral calcifications (2). ACR TI-RADS total points: 5 Previous: 5 ACR TI-RADS category: 4 Previous: 4 Significant change in size (>/= 20% in 2 dimensions and minimal increase of 2 mm or 50% or greater increase in volume): No Change in features: No Change in ACR TI-RADS risk category: No 3. Location: Left upper pole. Size: 1.4 x 0.8 x 0.9 cm, volume 0.5 mL. Previously: 1.4 x 0.7 x 0.9 cm, volume 0.5 mL. Nodule characteristics: Composition: Solid (2). Echogenicity: Hypoechoic (2). Shape: Not taller than wide (0). Margins: Smooth (0). Echogenic Foci: None (0). ACR TI-RADS total points: 4 Previous: 4 ACR TI-RADS category: 4 Previous: 4 Significant change in size (>/= 20% in 2 dimensions and minimal increase of 2 mm or 50% or greater increase in volume): No Change in features: No Change in ACR TI-RADS risk category: No 4. Location: Left mid pole. Size: 0.4 x 0.3 x 0.3 cm, volume 0.02 mL. Previously: 0.3 x 0.2 x 0.3 cm, volume 0.01 mL. Nodule characteristics: Composition: Solid (2). Echogenicity: Hypoechoic (2). Shape: Not taller than wide (0). Margins: Smooth (0). Echogenic Foci: None (0). ACR TI-RADS total points: 4 Previous: 4 ACR TI-RADS category: 4 Previous: 4 Significant change in size (>/= 20% in 2 dimensions and minimal increase of 2 mm or 50% or greater increase in volume): Yes Change in features: No Change in ACR TI-RADS risk category: No 5. Location: Left lower pole. Size: 1.9 x 1.3 x 1.8 cm, volume 2.3 mL. Previously: 1.6 x 1.1 x 1.7 cm, volume 1.6 mL. Nodule characteristics: Composition: Mixed cystic and solid (1). Echogenicity: Isoechoic (1). Shape: Not taller than wide (0). Margins: Smooth (0). Echogenic Foci: Comet-tail artifacts (0). ACR TI-RADS total points: 2 Previous: 2 ACR TI-RADS category: 2 Previous: 2 Significant change in size (>/= 20% in 2 dimensions and minimal increase of 2 mm or 50% or greater increase in volume): No Change in features: Currently more cystic-appearing. Change in ACR TI-RADS risk category: No NODES: No lymphadenopathy is seen in the tissue surrounding the thyroid gland. US/US thyroid IMPRESSION: Multiple bilateral thyroid nodules including 1.7 cm isthmus TI RADS 4 nodule for which fine-needle aspiration recommended if not previously performed. Continued sonographic follow-up if 1.4 cm left upper pole TI RADS 4 nodule. ACR TI-RADS RECOMMENDATION REFERENCE: Ultrasound-guided fine-needle aspiration, follow up ultrasound, no further followup. * TR1 (0 point) and TR2 (2 points): No FNA or followup * TR3 (3 points): FNA if more than or equal to 2.5 cm in maximum dimension, follow up ultrasound in 1, 3 and 5 years if 1.5 to 2.4 cm in maximum dimension. * TR4 (4-6 points): FNA if more than or equal to 1.5 cm in maximum dimension, follow up ultrasound in 1, 2, 3 and 5 years if 1 to 1.4 cm in maximum dimension. * TR5 (more than or equal to 7 points): FNA if more than or equal to 1 cm in maximum dimension, follow up ultrasound every year for 5 years if 0.5 to 0.9 cm in maximum dimension. * TR3, TR4 or TR5 nodules that are below the size threshold for follow up receive no followup.
== END 2023-06-16 08:38 | disposition home or self-care (01) ==
LOC: HO.US 08:37
PROVIDERS: PCP Family Medicine; Visit Provider Internal Medicine Endocrinology, Diabetes & Metabolism
DX: E04.2 Nontoxic multinodular goiter (principal)
CPT/HCPCS: 76536

== ENCOUNTER 2023-06-26 09:46 | Outpatient (AMB) | payer OTHER, SELFPAY ==
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
[2023-06-26 09:51] VITALS: BP 125/78; PULSE 68; BMI 24.0
== END 2023-06-26 10:11 | disposition home or self-care (01) ==
PROVIDERS: PCP Family Medicine; Visit Provider Internal Medicine Gastroenterology
DX: R10.12 Left upper quadrant pain (principal)
CPT/HCPCS: 99214

== ENCOUNTER → 2023-06-26 09:46 | Outpatient (BNVA) | payer OTHER, SELFPAY | PROVIDERS: PCP Family Medicine; Visit Provider Internal Medicine Gastroenterology | DX: R10.12 Left upper quadrant pain (principal) | CPT/HCPCS: 99212 ==

== ENCOUNTER 2023-07-02 18:17 | Outpatient (REF) | payer OTHER, SELFPAY | END 2023-07-02 18:18 | disposition home or self-care (01) | LOC: HO.HHCLNP 18:17 | PROVIDERS: Visit Provider Internal Medicine | DX: N30.01 Acute cystitis with hematuria (principal) | CPT/HCPCS: 87086; 87088; 87186 ==

== ENCOUNTER 2023-07-20 11:27 | Outpatient (REF) | payer OTHER, SELFPAY | END 2023-07-20 11:28 | disposition home or self-care (01) | LOC: HO.HHCLNP 11:27 | PROVIDERS: Visit Provider Family Medicine | DX: R30.0 Dysuria (principal); R31.9 Hematuria, unspecified | CPT/HCPCS: 87086; 87088; 87186 ==

== ENCOUNTER 2023-07-23 11:50 | Outpatient (AMB) | payer OTHER, SELFPAY ==
--- NOTE | 2023-07-23 11:53 | A.OFFVIS_ITS ---
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 07/23/2023-- She is followed today for hematuria/dysuria. She was last seen by me on 04/01/2023 for microscopic hematuria. and recurrent UTIs. The patient states that she has been using the vagifem suppositories and she was able to use it twice a week. Patient states that she has had UTI symptoms. She had alberts in the past for hematuria. Review of charts: 01/19/23 for office cystoscopy.--findings- - Mild bladder wall thickening. Pelvic exam was notable for vaginal atrophy. 07/23/2023: Evaluation today--UA-- leuko cytes: 2 +; blood: 10 Steve. 07/23/2023: Plan:Prescribed Macrobid 100 mg BID for 7 days. Ordered Nitrofurantoin 50 mg to use after the intercourse for antibiotic prophylaxis. Continue with cranberry tablets and vagifem as directed. 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 Mother History of heart attack Social History Household Members: None Housing: Apartment Alcohol intake: never Patient Tobacco Use Status: Never used Tobacco Review of Systems Const All systems reviewed & are unremarkable except as noted in HPI and below Reports no additional complaints Eyes Reports no additional complaints ENT Reports no additional complaints Card Denies dyspnea Resp Denies cough and Denies dyspnea GI Reports no additional complaints Reports no additional complaints Musc Reports no additional complaints Skin/Breast Denies rash and Denies unusual bruising Neuro Reports no additional complaints Psych Reports no additional complaints Endo Reports no additional complaints Raamn/Lymph Reports no additional complaints Aller/Immun Reports no additional complaints Results AMB Urinalysis, Automated UA Leukoctes 125 Maame/uL Last Edit by BENTLEY Schafer on 07/23/23 12:04 2+ Tisha Lynch 07/23/23 12:04 UA Nitrite Negative Last Edit by BENTLEY Schafer on 07/23/23 12:04 UA Urobilinogen 0.2 mg/dL Last Edit by BENTLEY Schafer on 07/23/23 12:0 4 UA Protein 0 mg/dL Last Edit by BENTLEY Schafer on 07/23/23 12:04 UA pH 6.0 Last Edit by BENTLEY Schafer on 07/23/23 12:04 UA Blood 10 Steve/uL Last Edit by BENTLEY Schafer on 07/23/23 12:04 UA Specific [place] 1.020 Last Edit by BENTLEY Schafer on 07/23/23 12: 04 UA Ketone Negative Last Edit by BENTLEY Schafer on 07/23/23 12:04 UA Bilirubin 0 mg/dL Last Edit by BENTLEY Schafer on 07/23/23 12:04 UA Glucose 0 mg/dL Last Edit by BENTLEY Schafer on 07/23/23 12:04 Results Reviewed Results Reviewed: Laboratory Last Values Urine pH (Auto) 6.0 07/23/23 12:02 Specific [place] (Auto) 1.020 07/23/23 12:02 Urine Protein (Auto) 0 mg/dL 07/23/23 12:02 Glucose (UA)(Auto) 0 mg/dL 07/23/23 12:02 Urine Ketones (Auto) Negative 07/23/23 12:02 Urine Blood (Auto) 10 Steve/uL 07/23/23 12:02 Urine Nitrite (Auto) Negative 07/23/23 12:02 Urine Bilirubin (Auto) 0 mg/dL 07/23/23 12:02 Urine Urobilinogen (Auto) 0.2 mg/dL 07/23/23 12:02 Leukocyte Esterase (Auto) 125 Maame/uL 07/23/23 12:02 Assessment & Plan Assessment & Plan (1) Recurrent urinary tract infection: Code(s): N39.0 - Urinary tract infection, site not specified (2) Post-menopausal atrophic vaginitis: Code(s): N95.2 - Postmenopausal atrophic vaginitis Plan Prescribed Macrobid 100 mg BID for 7 days. Ordered Nitrofurantoin 50 mg to use after the intercourse for antibiotic prophylaxis. Continue with cranberry tablets and vagifem as directed. Orders: Orders AMB Urinalysis Automated 07/23/23 Z13.9 - Encounter for screening, unspecified Medications: New nitrofurantoin monohyd/m-cryst 100 mg (Macrobid) must administer with a meal/food 100 mg PO BID 14 caps 0RF Patient Instructions: The patient had an opportunity to ask questions regarding treatment plan. All questions were answered. Imaging, Laboratory studies and physical exam results were discussed and reviewed in detail. No major barriers to understanding were identified. The patient expressed understanding and agreement with the above treatment plan. The patient is aware they should contact our office by phone for worsening of their current condition or the appearance of new symptoms. Compliance is encouraged with any medications and followup testing that is ordered. It is a privilege to be allowed the opportunity to participate in the urologic care of your patient. If you have any questions or concerns regarding treatment for the above conditions please do not hesitate to contact me. The office telephone contact is [phone]. This note is constructed in part using voice recognition software. While every effort has been made to ensure accuracy light fixture servicer errors may have been included. Yours sincerely, Chela Almaguer MD Coding Level of Care Code Est Pt Level 4 (25244) Diagnoses Recurrent urinary tract infection N39.0 Post-menopausal atrophic vaginitis N95.2
== END 2023-07-23 12:21 | disposition home or self-care (01) ==
PROVIDERS: PCP Family Medicine; Visit Provider Urology
DX: N39.0 Urinary tract infection, site not specified (principal); N95.2 Postmenopausal atrophic vaginitis
CPT/HCPCS: 99214

== ENCOUNTER → 2023-07-23 11:50 | Outpatient (BNVA) | payer OTHER, SELFPAY | PROVIDERS: PCP Family Medicine; Visit Provider Urology | DX: R30.0 Dysuria (principal); N95.2 Postmenopausal atrophic vaginitis | CPT/HCPCS: 81003; 99212 ==

== ENCOUNTER 2023-07-27 08:29 | Outpatient (REF) | payer OTHER, SELFPAY ==
--- NOTE | ~2023-07-27 | US_ITS ---
EXAMINATION: US DOPPLER MESENTERIC ARTERIES CLINICAL INFORMATION: Postprandial pain COMPARISON: None available. TECHNIQUE: Ultrasound along with color Doppler imaging and spectral analysis was performed of the abdominal aorta, celiac artery, superior mesenteric artery, inferior mesenteric artery, splenic artery and hepatic. Dynamic imaging was performed of the celiac artery including with inspiration and expiration in both the supine and upright position FINDINGS: AORTA: Normal in caliber and patent on color flow Doppler. Proximal to SMA: 82 cm/s Distal to the SMA: 57 cm/s CELIAC ARTERY: Patent Inspiration supine: 165 cm/s Inspiration upright: 108 cm/s Expiration supine: 99.2 cm/s Expiration upright: 207 cm/s SUPERIOR MESENTERIC ARTERY: Patent Proximal: 260 cm/s Mid: 180 cm/s Distal: 99 cm/s INFERIOR MESENTERIC ARTERY: Patent Proximal: 147 cm/s SPLENIC ARTERY: 95 cm/s HEPATIC ARTERY: 92.2 cm/s US/US SMA IMPRESSION: 1. Elevated velocity in the celiac artery on expiration in the upright positioning which normalizes with inspiration and in the supine position. Velocity elevation is minimally elevated. The findings are concerning for possible median arcuate ligament compression. Further evaluation with CTA or MRA may be useful 2. No evidence of hemodynamically significant stenosis in the superior mesenteric artery.
== END 2023-07-27 08:30 | disposition home or self-care (01) ==
LOC: HO.US 08:29
PROVIDERS: PCP Family Medicine; Visit Provider Internal Medicine Gastroenterology
DX: R10.12 Left upper quadrant pain (principal)
CPT/HCPCS: 93976

== ENCOUNTER 2023-07-30 07:59 | Outpatient (REF) | payer OTHER, SELFPAY ==
--- NOTE | ~2023-07-30 | CT_ITS ---
EXAMINATION: CT CHEST WITHOUT CONTRAST CLINICAL INFORMATION: Lung nodule. COMPARISON: CT chest 09/18/2021: Stable bilateral calcified and noncalcified pulmonary nodules, largest noncalcified nodule measuring 4 mm in the right middle lobe. TECHNIQUE: Multidetector volumetric CT imaging of the chest was done. Axial MIP volume rendering provided. Sagittal and coronal reformatted images were obtained. This CT examination was performed using dose optimization techniques as appropriate, variously including the following: *Automated exposure control *Adjustment of mA and/or kV according to patient size (this includes techniques or standardized protocols for targeted exams where dose is matched to indication/reason for exam; i.e. extremities or head) *Use of iterative reconstruction technique DLP: 84 mGy-cm FINDINGS: LUNGS: Again seen are some scattered pulmonary nodules the largest of which measures 4 mm in the right middle lobe on the undersurface of the minor fissure (7:265 and 6:64). This is unchanged when compared to the prior study. Some other smaller perifissural nodular densities are seen and these probably all represent small lymph nodes. Foster images of all pulmonary nodules have been saved. Compared to the prior study there has been no interval change and no new or worrisome lung nodule is seen. MEDIASTINUM: A 1.2 cm left thyroid nodule is present near the isthmus. No other abnormality is seen. CORONARY ARTERY CALCIFICATION: None visualized on this study. PLEURA: There is no pleural effusion. No pleural mass or thickening. AXILLA: No lymphadenopathy. UPPER ABDOMEN: Status post cholecystectomy. A 0.8 cm cyst is noted in the left lobe of the liver along with a 0.7 cm cyst in the right lobe, unchanged from prior. OSSEOUS STRUCTURES: Mild biconvex thoracolumbar scoliosis. No bony destructive lesions. CT/CT chest wo IV con IMPRESSION: 1. Small pulmonary nodules are unchanged. Per the 2017 revised Fleischner Society guidelines, no follow-up needed if patient is low-risk (and has no known or suspected primary neoplasm). Non-contrast chest CT can be considered in 12 months if patient is high-risk. 2. Incidental note made of an unchanged 1.2 cm left thyroid nodule, benign hepatic cysts and cholecystectomy changes. Thyroid nodule recommendation: No follow-up recommended unless deemed clinically necessary. I believe this was biopsied on 05/22/2022. Please correlate with pathology and procedure reports. Fleischner guidelines were followed.
== END 2023-07-30 08:00 | disposition home or self-care (01) ==
LOC: HO.CT 07:59
PROVIDERS: PCP Family Medicine; Visit Provider Family Medicine
DX: R91.1 Solitary pulmonary nodule (principal)
CPT/HCPCS: 71250

== ENCOUNTER 2023-08-04 12:49 | Day surgery (SDC) | payer OTHER, SELFPAY ==
[2023-07-31 14:18] VITALS: BMI 24.0
--- NOTE | 2023-08-03 11:14 | P.CONAN_ITS ---
Documented by User: Geno Coffey NP 08/03/23 11:16 HPI - Anesthesia Eval Consult details Narrative: 57yo F for Upper Endoscopy PMFSH Active Problems All Active Problems (Updated 07/23/23 @ 12:24 by Bertram Meehan) Post-menopausal atrophic vaginitis (Acute) Postprandial abdominal pain in left upper quadrant (Acute) GERD (gastroesophageal reflux disease) (Acute) Vaginal atrophy (Acute) Recurrent urinary tract infection (Acute) Microhematuria (Acute) LUQ abdominal pain (Acute) Cervical radiculopathy (Acute) Chest discomfort (Acute) Hyperlipidemia (Acute) Non-toxic multinodular goiter (Acute) UTI (urinary tract infection) (Acute) Hematuria (Acute) Fibromyalgia (Acute) Epigastric abdominal pain (Acute) Food allergy (Acute) Arthropathy of lumbar facet joint (Acute) Spondylosis of lumbosacral spine without myelopathy (Acute) Postlaminectomy syndrome, cervical (Acute) Past Medical History Medical History Hyperlipidemia Non-toxic multinodular goiter Fibromyalgia Arthritis History of fibromyalgia History of anxiety History of headache Depression Lab test positive for detection of COVID-19 virus Asthma GERD (gastroesophageal reflux disease) Arthropathy of lumbar facet joint Spondylosis of lumbosacral spine without myelopathy Postlaminectomy syndrome, cervical Family History Family History Father No problems noted. Mother History of heart attack Surgical History Surgical History History of biopsy Hx laparoscopic cholecystectomy Hx of hysterectomy Hx of cervical discectomy History of esophagogastroduodenoscopy (EGD) History of colonoscopy Social History Household Members: None Housing: Apartment Alcohol intake: never Patient Tobacco Use Status: Never used Tobacco Use of substances other than those prescribed or required for medical reasons: No Advance Directives: No Advance Directives Information Provided: Yes Meds Allergies Allergy/AdvReac Type Severity Reaction Status Date / Time Iodinated Contrast Media Allergy Intermediate HIVES Verified 07/23/23 11:57 [CONTRAST, IV] iopromide [From ULTRAVIST] Allergy Mild HIVES Verified 07/23/23 11:57 ibuprofen [From MOTRIN] AdvReac Intermediate NAUSEA & Verified 07/23/23 11:57 VOMITING Home Medications Medication Instructions Recorded Confirmed Last Taken Type tramadol 50 mg tablet 50 mg PO BID PRN Pain 07/19/20 07/31/23 Unknown History albuterol sulfate 90 mcg/actuation 2 puff PO Q4-6H PRN Shortness Of 09/04/20 07/31/23 Unknown History aerosol inhaler Breath clonazepam 1 mg tablet 1 tab PO DAILY PRN Anxiety 09/04/20 07/31/23 Unknown History zolpidem 10 mg tablet 1 tab PO BEDTIME PRN Insomnia 09/04/20 07/31/23 Unknown History atorvastatin 10 mg tablet 10 mg PO BEDTIME 07/02/21 07/31/23 Unknown History buspirone 5 mg tablet 5 mg PO TID anxiety 07/02/21 07/31/23 Unknown History qdwhvlnqrx-hcaqwrdlyxral-xrpgfqcf 1 tab PO BID PRN Migraine Headache 07/02/21 07/31/23 Unknown History 50 mg-325 mg-40 mg tablet topiramate 25 mg tablet 25 mg PO DAILY PRN 04/09/22 01/19/23 Unknown History docusate sodium 100 mg capsule 100 mg PO BID PRN Constipation 06/06/22 07/31/23 Unknown History fluticasone propionate 110 1 puff inhalation BID 06/06/22 07/31/23 Unknown History mcg/actuation HFA aerosol inhaler (Flovent HFA) loratadine 10 mg tablet 10 mg PO DAILY 06/06/22 07/31/23 Unknown History sennosides 8.6 mg tablet (senna) 17.2 mg PO DAILY 07/14/22 01/19/23 Unknown History escitalopram oxalate 10 mg tablet 10 mg PO DAILY 12/05/22 07/31/23 Unknown History famotidine 40 mg tablet 40 mg PO BEDTIME 12/05/22 01/19/23 Unknown History diclofenac sodium 1 % topical gel 1 ea topical BID 06/26/23 07/31/23 Unknown History fluticasone propionate 50 1 spray intranasal DAILY 06/26/23 07/31/23 Unknown History mcg/actuation nasal spray,suspension gabapentin 400 mg capsule 400 mg PO TID 06/26/23 07/31/23 Unknown History tizanidine 2 mg tablet 2 mg PO TID 06/26/23 07/31/23 Unknown History Exam Height,Weight and Vital Signs: Height 4 ft 11 in Weight 53.977 kg Pertinent Lab Results Pertinent Lab Results: Laboratory Tests 05/20/23 08:40 WBC 6.1 Hgb 11.1 L Hct 33.8 L Plt Count 294 Sodium 143 Potassium 3.5 Chloride 107 Carbon Dioxide 30 H BUN 16 Creatinine 0.75 Assessment and Plan Assessment Anesthesia Assessment: Chart Reviewed Documented by User: Alfie Walsh MD 08/04/23 14:26 PMFSH Active Problems All Active Problems (Updated 07/23/23 @ 12:24 by Bertram Meehan) Post-menopausal atrophic vaginitis (Acute) Postprandial abdominal pain in left upper quadrant (Acute) GERD (gastroesophageal reflux disease) (Acute) Vaginal atrophy (Acute) Recurrent urinary tract infection (Acute) Microhematuria (Acute) LUQ abdominal pain (Acute) Cervical radiculopathy (Acute) Chest discomfort (Acute) Hyperlipidemia (Acute) Non-toxic multinodular goiter (Acute) UTI (urinary tract infection) (Acute) Hematuria (Acute) Fibromyalgia (Acute) Epigastric abdominal pain (Acute) Food allergy (Acute) Arthropathy of lumbar facet joint (Acute) Spondylosis of lumbosacral spine without myelopathy (Acute) Postlaminectomy syndrome, cervical (Acute) Past Medical History Medical History Hyperlipidemia Non-toxic multinodular goiter Fibromyalgia Arthritis History of fibromyalgia History of anxiety History of headache Depression Lab test positive for detection of COVID-19 virus Asthma GERD (gastroesophageal reflux disease) Arthropathy of lumbar facet joint Spondylosis of lumbosacral spine without myelopathy Postlaminectomy syndrome, cervical Family History Family History Father No problems noted. Mother History of heart attack Family history of problems with anesthesia: No Surgical History Surgical History History of biopsy Hx laparoscopic cholecystectomy Hx of hysterectomy Hx of cervical discectomy History of esophagogastroduodenoscopy (EGD) History of colonoscopy History of Problems with Anesthesia: No Social History Household Members: None Housing: Apartment Alcohol intake: never Patient Tobacco Use Status: Never used Tobacco Use of substances other than those prescribed or required for medical reasons: No Advance Directives: No Advance Directives Information Provided: Yes Meds Allergies Allergy/AdvReac Type Severity Reaction Status Date / Time Iodinated Contrast Media Allergy Intermediate HIVES Verified 07/23/23 11:57 [CONTRAST, IV] iopromide [From ULTRAVIST] Allergy Mild HIVES Verified 07/23/23 11:57 ibuprofen [From MOTRIN] AdvReac Intermediate NAUSEA & Verified 07/23/23 11:57 VOMITING Home Medications Medication Instructions Recorded Confirmed Last Taken Type tramadol 50 mg tablet 50 mg PO BID PRN Pain 07/19/20 07/31/23 Unknown History albuterol sulfate 90 mcg/actuation 2 puff PO Q4-6H PRN Shortness Of 09/04/20 07/31/23 Unknown History aerosol inhaler Breath clonazepam 1 mg tablet 1 tab PO DAILY PRN Anxiety 09/04/20 07/31/23 Unknown History zolpidem 10 mg tablet 1 tab PO BEDTIME PRN Insomnia 09/04/20 07/31/23 Unknown History atorvastatin 10 mg tablet 10 mg PO BEDTIME 07/02/21 07/31/23 Unknown History buspirone 5 mg tablet 5 mg PO TID anxiety 07/02/21 07/31/23 Unknown History mxrvfjdsec-bccjmjiacdmdv-tjqlghdm 1 tab PO BID PRN Migraine Headache 07/02/21 07/31/23 Unknown History 50 mg-325 mg-40 mg tablet topiramate 25 mg tablet 25 mg PO DAILY PRN 04/09/22 01/19/23 Unknown History docusate sodium 100 mg capsule 100 mg PO BID PRN Constipation 06/06/22 07/31/23 Unknown History fluticasone propionate 110 1 puff inhalation BID 06/06/22 07/31/23 Unknown History mcg/actuation HFA aerosol inhaler (Flovent HFA) loratadine 10 mg tablet 10 mg PO DAILY 06/06/22 07/31/23 Unknown History sennosides 8.6 mg tablet (senna) 17.2 mg PO DAILY 07/14/22 01/19/23 Unknown History escitalopram oxalate 10 mg tablet 10 mg PO DAILY 12/05/22 07/31/23 Unknown History famotidine 40 mg tablet 40 mg PO BEDTIME 12/05/22 01/19/23 Unknown History diclofenac sodium 1 % topical gel 1 ea topical BID 06/26/23 07/31/23 Unknown History fluticasone propionate 50 1 spray intranasal DAILY 06/26/23 07/31/23 Unknown History mcg/actuation nasal spray,suspension gabapentin 400 mg capsule 400 mg PO TID 06/26/23 07/31/23 Unknown History tizanidine 2 mg tablet 2 mg PO TID 06/26/23 07/31/23 Unknown History Exam Airway Mallampati Class: I TM Dist: >3cm Neck ROM: Full Loose/Missing/Broken Teeth: No Assessment and Plan Assessment Anesthesia Assessment: Anesthesia Plan Discussed Final Anesthetic Review Family History of Problems with Anesthesia: No History of Problems with Anesthesia: No NPO: Yes ASA Class: II Final Preanesthetic Review: No Changes in Pt Med Stat, Meds/Allgs Chart Review ed, Consent Obtained/Reviewed and Anes Risks/Benef Reviewed Patient Risk: Low Procedure Risk: Low Anesthetic Plan Anesthetic Plan: MAC: Disposition: Standard PACU
--- NOTE | 2023-08-04 13:01 | P.HPSUR_ITS ---
Pre-Procedural Eval Section A Date of Service: 08/04/23 Section B Chief Complaint: epigastric pain Relevant Social History: None Present Medications: see Short Stay Collaborative assessment Medical History: Significant History (Hyperlipidemia Non-toxic multinodular goiter Fibromyalgia Arthritis History of fibromyalgia History of anxiety History of headache Depression Lab test positive for detection of COVID-19 virus Asthma GERD (gastroesophageal reflux disease) Arthropathy of lumbar facet joint Spondylosis of lumbosacral s) History of Previous Operations: Relevant previous surgery/procedure and date(s) (History of biopsy Hx laparoscopic cholecystectomy Hx of hysterectomy Hx of cervical discectomy History of esophagogastroduodenoscopy (EGD) History of colonoscopy) Allergies: Allergies Allergy/AdvReac Type Severity Reaction Status Date / Time Iodinated Contrast Media Allergy Intermediate HIVES Verified 07/23/23 11:57 [CONTRAST, IV] iopromide [From ULTRAVIST] Allergy Mild HIVES Verified 07/23/23 11:57 ibuprofen [From MOTRIN] AdvReac Intermediate NAUSEA & Verified 07/23/23 11:57 VOMITING Review of Systems Sugical H&P ROS: Negative: Constitution, Cardiovascular, Respiratory, Neurological, Psychiatric, Hem-Onc, Allergic/Immunologic, Gastrointestinal, [place] tourinary, Musculoskeletal, Integumentary, Endocrine and Eyes/Ears/Nose/Throat Exam Surgical H&P Exam: Normal: HEENT, Normal: Heart, Normal: Lungs, Normal: Extremities, Normal: Abdomen, Normal: Skin and Normal: Neurological Plan Diagnosis/Plan: Unchanged I have reviewed the history and physical and performed a pertinent physical examination on my patient. No changes have occurred unless specified. Time Spent With Patient Time: Total time managing care of this patient today ____ minutes.
[2023-08-04 13:18] VITALS: BP 149/87; PULSE 72; RESP 20; TEMP 37.3; O2SAT 100; BMI 23.7
--- NOTE | 2023-08-04 14:20 | W.PM.OPN ---
Operative Note Operative Note Date of Service: 08/04/23 Narrative: Procedure Description: EGD Indication: post prandial pain Anesthesia: MAC FLEXIBLE TRANSORAL UPPER GASTROINTESTINAL ENDOSCOPY UPPER ENDOSCOPY Consent: Indications for the procedure and potential complications of bleeding, perforation, reaction to medications and missed diagnosis were discussed with the patient and informed consent was obtained. Instrument: Olympus GIF H 190 J mid size upper endoscope Monitoring: Vital signs and clinical assessment, continuous EKG monitoring, Pulse oximetry, Carbon Dioxide monitoring and blood pressure monitoring were done throughout the procedure. Procedure: The patient was placed in the left lateral decubitis position and pre-procedure medications were administered and a bite block was placed. The endoscope was inserted into the mouth and advanced under direct vision to the third part of duodenum. A careful inspection was made as the upper endoscope was withdrawn including a retroflexed examination of the proximal stomach; Findings and interventions are described below. Findings: Larynx:normal Esophagus: GE junction at 38 cm, diaphragm hiatus at 38 cm, nmild erythema, bx taken from GEJ Stomach: Patchy gastric erythema. Biopsies were obtained. Grade 2 flap valve on retroflexed examination of the cardia. Duodenum: Normal bulb and descending duodenum, bx taken Intervention: Biopsies as noted above Impression/Findings: mild gastritis and esophagitis PLAN: await BX get CTA as planned due to pos duplex
[2023-08-04 14:23] VITALS: BP 120/80; PULSE 79; RESP 16; TEMP 36.3; O2SAT 100
[2023-08-04 14:37] VITALS: BP 126/73; PULSE 72; RESP 16; TEMP 36.3; O2SAT 100
== END 2023-08-04 15:32 | disposition home or self-care (01) ==
PROVIDERS: PCP Family Medicine; Visit Provider Internal Medicine Gastroenterology
PROC: 0DJ08ZZ Inspection of Upper Intestinal Tract, Via Natural or Artificial Opening Endoscopic (ICD-10-PCS; CPT 43235; principal; 2023-08-04 15:50)
DX: K29.70 Gastritis, unspecified, without bleeding (principal); K20.90 Esophagitis, unspecified without bleeding; R10.2 Pelvic and perineal pain; K21.9 Gastro-esophageal reflux disease without esophagitis; M79.7 Fibromyalgia; E78.5 Hyperlipidemia, unspecified; E04.2 Nontoxic multinodular goiter; J45.909 Unspecified asthma, uncomplicated; Z87.440 Personal history of urinary (tract) infections
CPT/HCPCS: 43239; 88305; 88342; J2704

== ENCOUNTER → 2023-08-04 12:49 | Outpatient (BNV) | payer OTHER, SELFPAY | PROVIDERS: PCP Family Medicine; Visit Provider Internal Medicine Gastroenterology | DX: K21.00 Gastro-esophageal reflux disease with esophagitis, without bleeding (principal) | CPT/HCPCS: 43239 ==

== ENCOUNTER 2023-08-28 09:49 | Outpatient (AMB) | payer OTHER, SELFPAY ==
--- NOTE | 2023-08-28 10:17 | A.OFFVIS_ITS ---
Intake Vital Signs 08/28/23 10:18 Height 4 ft 11 in Weight 116 lb 6 oz BMI 23.5 BP 121/70 Blood Pressure Location Lt brachial Position Sitting Respiration 18 Pulse 80 Pulse Source Pulse Oximeter Pulse Oximetry (%) 98 Oxygen Delivery Method Room Air Intake Visit Reasons: Chronic bilateral low back pain Allergies Iodinated Contrast Media [CONTRAST, IV] Allergy (Intermediate, Verified 08/28/23 10:01) HIVES iopromide [From ULTRAVIST] Allergy (Mild, Verified 08/28/23 10:01) HIVES ibuprofen [From MOTRIN] Adverse Reaction (Intermediate, Verified 08/28/23 10:01) NAUSEA & VOMITING HPI HPI Comments History of Present Illness Details Patient presents back to the office today for follow up lower back pain. Patient last seen here in 10/2020, was lost to follow up. Today patient is complaining of pain across her lower back, left worse than right, with radiation to the thighs and groin. Pain is worse with sitting, walking, standing, using stairs and lying on her side. She has tried PT, muscle relaxers, tylenol, NSAIDS, HEP and prescription opioid medications. She states nothing helps her pain. Pain today rated as 9/10, constant. She has a pending EMG next week. Patient denies red flag symptoms including new loss of bowel, bladder or saddle anesthesia. Prior: Miryam is on the phone today after she did not show up for medial branch blocks L2 L3-dorsal ramus L4 (her L5 is completely sacralized.) She is suffering from hematuria and abdominal pain. She was placed on antibiotics. This is nitrofurantoin. She need to complete treatment for her hematuria and then call us back for continuation with pain management. It is quite possible that her pain in the back is related more to her kidneys rather than to the arthritis we wanted to address. Prior: She reports pain in an in the neck and pain in the lower back with radiation into the left lower extremity to the level of the knee but not below that level. She also suffers from multiple conditions which are painful including esophageal stricture and dysphagia and numbing and painful hands as well as bilateral knee pain.. She is being prescribed tramadol 50 mg b.i.d. for her pain. She reports that she had physical therapy in the past to treat her pain she had x-rays and CT scans available and dictated below. She reports that she had a surgery on her neck, she does not remember level however it would be logical to infer that her surgery would be at C6-C7 level where previous CT scan was reporting stenosis. Most likely this surgery was ACDF. She has a scar on anterior surface of the neck. Her past medical history significant for headaches, hypertension, fatigue, asthma, esophagus stricture, and arthritis. [facility] Medical History Hyperlipidemia Non-toxic multinodular goiter Fibromyalgia Arthritis History of fibromyalgia History of anxiety History of headache Depression Lab test positive for detection of COVID-19 virus Asthma GERD (gastroesophageal reflux disease) Arthropathy of 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 Mother History of heart attack Social History Household Members: None Housing: Apartment Alcohol intake: never Patient Tobacco Use Status: Never used Tobacco Review of Systems Const All systems reviewed & are unremarkable except as noted in HPI and below Physical Exam Vital Signs: Last Vital Signs Pulse 80 08/28/23 10:18 Resp 18 08/28/23 10:18 BP 121/70 08/28/23 10:18 Pulse Ox 98 08/28/23 10:18 Oxygen Delivery Method Room Air 08/28/23 10:18 BMI result Body Mass Index 23.5 General: awake, alert, oriented. Answers questions appropriately. Fully engaged in examination. Skin: warm, dry, intact HEENT: Normocephalic. Hearing intact. Cardiac: External chest normal in appearance. Respiratory: No cough, audible wheezing or stridor. Abdomen: without gross distension. MS: No obvious swelling or deformities. Able to stand on bilateral tiptoes and bilateral heels.? Able to transition from sit to stand unassisted. Ambulates with bilaterally normal heel strike and toe off Range of motion intact SLR with a without dorsiflexion negative bilaterally Positive facet loading bilaterally Tender to palpation over lumbar paraspinal muscles, midline lumbar vertebrae and PSIS bilaterally [place] positive bilaterally, left greater than right Thigh thrust positive bilaterally, left greater than right SI compression test positive bilaterally Neurological: Oriented to person, place, time and situation. Thought process intact. No gait abnormalities appreciated. Psychiatric: Appropriate mood and affect. Good judgment and insight. Results Reviewed Results Reviewed: 05/19/2023 MR/MR lumbar spine wo con FINDINGS: In keeping with numbering on prior MRI from 2019, the last well-formed disc space is designated L4-L5 with sacralization of L5 and rudimentary disc at L5-S1. T12 corresponds to the last rib-bearing vertebra using this numbering convention. Trace anterolisthesis of L3 on L4. Mild leftward curvature of the lumbar spine. No suspicious marrow signal or focal osseous lesion. The vertebral body heights are maintained. Mild multilevel disc desiccation and height loss. The conus medullaris terminates at the level of L1-L2. The distal spinal cord is normal in appearance. The cauda equina nerve roots appear normal. No significant abnormalities of the paraspinal musculature. Limited evaluation of the intra-abdominal structures without significant abnormalities. Small left renal cyst. The abdominal aorta is of normal contour and caliber. Small left-sided sacral Tarlov cysts. SPINAL LEVELS: L1-L2: No significant spinal canal or neuroforaminal narrowing. L2-L3: Shallow right eccentric disc bulge. Mild facet arthropathy. No significant central spinal canal stenosis. Stable mild right neural foraminal narrowing L3-L4: Trace anterolisthesis. Shallow disc bulge, mild to moderate facet arthropathy stable bilateral subarticular zone narrowing and mild bilateral neural foraminal narrowing. Stable abutment of the exiting right L3 nerve root by a right extraforaminal component of disc bulge. L4-L5: No significant spinal canal or neuroforaminal narrowing. Moderate facet arthropathy. Shallow disc bulge. L5-S1: No significant spinal canal or neuroforaminal narrowing. IMPRESSION: 1. Transitional lumbosacral anatomy with sacralization of L5 and rudimentary disc at L5-S1. 2. Mild multilevel lumbar spondylosis has not significantly progressed compared to MRI from 2019. No significant central spinal canal stenosis or high-grade neural foraminal narrowing. At L3-L4, there is trace anterolisthesis with stable bilateral subarticular zone narrowing, mild bilateral neural foraminal narrowing, and abutment of the extraforaminal right L3 nerve root by disc material. Assessment & Plan Assessment & Plan (1) Spondylosis of lumbosacral spine without myelopathy: Code(s): M47.817 - Spondylosis without myelopathy or radiculopathy, lumbosacral region (2) Postlaminectomy syndrome, cervical: Comment: opioid rx Code(s): M96.1 - Postlaminectomy syndrome, not elsewhere classified (3) Sacroiliac joint dysfunction of right side: Code(s): M53.3 - Sacrococcygeal disorders, not elsewhere classified (4) Sacroiliac joint dysfunction of left side: Code(s): M53.3 - Sacrococcygeal disorders, not elsewhere classified (5) Myofascial muscle pain: Code(s): M79.18 - Myalgia, other site (6) Cervical radiculopathy: Code(s): M54.12 - Radiculopathy, cervical region Plan Kj melo presented to the office today for follow-up bilateral lower back pain. Patient has exhausted conservative treatment including physical therapy, home exercise program, 10s unit, acupuncture and injections. She has tried nonsteroidal anti-inflammatory medication, muscle relaxers and prescription opioid medications. History, physical exam provocative testing today consistent with bilateral sacroiliac joint dysfunction, left greater than right. Discussed options for treatment including diagnostic interventional testing, steroid injections, peripheral nerve stimulation with Sprint, RFA and more permanent neuromodulation. Informational pamphlets provided. Continue with plan for EMG next week. Tizanidine 2 mg p.o. twice daily as needed, patient advised on cautions for use. Zynex tens unit ordered, patient instructed on use. Informational pamphlet provided to patient. Will schedule for bilateral diagnostic fluoroscopy guided sacroiliac joint injections with local anesthetic. All questions and concerns have been answered and patient agrees with the plan. Follow up after injections and sooner if needed. Medications: New tizanidine Do not take with other [employer] depressants, may cause drowsiness. No driving while taking this medication. 2 mg PO BID PRN 60 tabs 0RF muscle spasticity Coding Level of Care Code Est Pt Level 4 (60095) Diagnoses Spondylosis of lumbosacral spine without myelopathy M47.817 Postlaminectomy syndrome, cervical M96.1 Sacroiliac joint dysfunction of right side M53.3 Sacroiliac joint dysfunction of left side M53.3 Myofascial muscle pain M79.18 Cervical radiculopathy M54.12
[2023-08-28 10:18] VITALS: BP 121/70; PULSE 80; RESP 18; O2SAT 98; BMI 23.5
== END 2023-08-28 10:28 | disposition home or self-care (01) ==
PROVIDERS: PCP Family Medicine; Visit Provider Registered Nurse Emergency
DX: M47.817 Spondylosis without myelopathy or radiculopathy, lumbosacral region (principal); M96.1 Postlaminectomy syndrome, not elsewhere classified; M53.3 Sacrococcygeal disorders, not elsewhere classified; M79.18 Myalgia, other site; M54.12 Radiculopathy, cervical region
CPT/HCPCS: 99214

== ENCOUNTER → 2023-08-28 09:49 | Outpatient (BNVA) | payer OTHER, SELFPAY | PROVIDERS: PCP Family Medicine; Visit Provider Registered Nurse Emergency | DX: M47.817 Spondylosis without myelopathy or radiculopathy, lumbosacral region (principal); M96.1 Postlaminectomy syndrome, not elsewhere classified; M53.3 Sacrococcygeal disorders, not elsewhere classified; M79.18 Myalgia, other site; M54.12 Radiculopathy, cervical region | CPT/HCPCS: 99212 ==

== ENCOUNTER 2023-09-09 10:16 | Outpatient (REF) | payer OTHER, SELFPAY ==
--- NOTE | 2023-09-09 10:25 | EMG_ITS ---
Please see scanned EMG / Nerve Conduction Report. MTDD
[2023-09-09 12:24] LABS: Blood Urea Nitrogen 10 mg/dL (9-16); Estimated Glomerular Filt Rate > 60
== END 2023-09-09 10:17 | disposition home or self-care (01) ==
LOC: HO.NEURO 10:16
PROVIDERS: Internal Medicine Gastroenterology; PCP Family Medicine; Visit Provider Family Medicine
DX: M54.50 Low back pain, unspecified (principal); M79.18 Myalgia, other site; R10.12 Left upper quadrant pain; K21.9 Gastro-esophageal reflux disease without esophagitis
CPT/HCPCS: 36415; 82565; 84520; 95885; 95910

== ENCOUNTER 2023-10-06 06:18 | Outpatient (REF) | payer OTHER, SELFPAY ==
--- NOTE | ~2023-10-06 | FL_ITS ---
EXAMINATION: XR FLUOROSCOPY WITH IMAGES CLINICAL INFORMATION: Sacrococcygeal disorders not elsewhere specified. COMPARISON: None available. TECHNIQUE: Fluoroscopy Supervised By: Dr. Riley. Fluoroscopy Time: 0.2 min. Cumulative Dose: 1.88 mGy. DAP: 0.0328 Gycm2. Images: 2. FINDINGS: Images demonstrate a needle in the region of both SI joints. Please see Dr. Riley's procedure note for full details. FL/FL guidance in treatment room IMPRESSION: Fluoroscopy and spot films provided during bilateral SI joint injection.
== END 2023-10-06 06:19 | disposition home or self-care (01) ==
LOC: CF 06:18
PROVIDERS: Visit Provider Anesthesiology
DX: M53.3 Sacrococcygeal disorders, not elsewhere classified (principal)
CPT/HCPCS: 27096; A9585; J2795; Q9967

== ENCOUNTER 2023-10-06 15:08 | Outpatient (AMB) | payer OTHER, SELFPAY ==
[2023-10-06 15:15] VITALS: BP 98/64; PULSE 66; RESP 14; O2SAT 100; BMI 23.5
--- NOTE | 2023-10-06 15:15 | A.OFFVIS_ITS ---
Intake Vital Signs 10/06/23 15:15 10/06/23 16:10 Height 4 ft 11 in 4 ft 11 in Weight 116 lb 6 oz 116 lb 6 oz BMI 23.5 23.5 BP 98/64 100/68 Blood Pressure Location Lt brachial Lt brachial Position Sitting Sitting Respiration 14 14 Pulse 66 76 Pulse Source Pulse Oximeter Pulse Oximeter Pulse Oximetry (%) 100 99 Oxygen Delivery Method Room Air Room Air Comment pre-op post-op Intake Visit Reasons: Nas Dx SIJ inj Allergies Iodinated Contrast Media [CONTRAST, IV] Allergy (Intermediate, Verified 10/06/23 15:16) HIVES iopromide [From ULTRAVIST] Allergy (Mild, Verified 10/06/23 15:16) HIVES ibuprofen [From MOTRIN] Adverse Reaction (Intermediate, Verified 10/06/23 15:16) NAUSEA & VOMITING PFSH Medical History Hyperlipidemia Non-toxic multinodular goiter Fibromyalgia Arthritis History of fibromyalgia History of anxiety History of headache Depression Lab test positive for detection of COVID-19 virus Asthma GERD (gastroesophageal reflux disease) Arthropathy of 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 Mother History of heart attack Social History Household Members: None Housing: Apartment Alcohol intake: never Patient Tobacco Use Status: Never used Tobacco Physical Exam Vital Signs: Last Vital Signs Pulse 76 10/06/23 16:10 Resp 14 10/06/23 16:10 BP 100/68 10/06/23 16:10 Pulse Ox 99 10/06/23 16:10 Oxygen Delivery Method Room Air 10/06/23 16:10 BMI result Body Mass Index 23.5 Assessment & Plan Assessment & Plan (1) Sacroiliac joint dysfunction of left side: Code(s): M53.3 - Sacrococcygeal disorders, not elsewhere classified (2) Sacroiliac joint dysfunction of right side: Code(s): M53.3 - Sacrococcygeal disorders, not elsewhere classified Plan Informed consent was explained thoroughly to the patient.? All questions about benefits and risks for the procedure were answered. Patient came to the operating room and was positioned prone on the operating table with the pillow under the abdomen. Time out of the performed demonstratin g name and date of the patient, site and side of the procedure. The lower back and buttocks of the patient were prepped with ChloraPrep prepped and draped with sterile utility towels.? Sterilely draped C-arm was brought over the operating field and sq picture of patient's pelvis was demonstrated on the screen.? For each joint tilting C-arm contralateral to the site of the joint the most posterior portion of the joints was superimposed with anterior silhouette of the joint.? Skin was injected in the projection of the joint slightly medial to the location of the joint with 25 gauge 1/2 inch needle using local lidocaine 2% . After that 22 gauge 3 and 1/2 inch needle was driven to the right and left joint in tunnel vision fashion.? When needle entered the joint capsule injection of the contrast was performed demonstrating intra-articular and minimally periarticular spread of the contrast.? After that 4 cc. of ropivacaine 0.5% was injected into each joint.? Upon completion of the injections the needles were removed and pressure were applied.? Sterile dressing was applied.? Upon completion of the injection patient was taken outside of the operating room to the recovery room where recovered uneventfully. Orders: Orders FL guidance in treatment room 10/06/23 M53.3 - Sacrococcygeal disorders, not elsewhere classified Coding Level of Care Code Procedure Only Diagnoses Sacroiliac joint dysfunction of left side M53.3 Sacroiliac joint dysfunction of right side M53.3
[2023-10-06 16:10] VITALS: BP 100/68; PULSE 76; RESP 14; O2SAT 99; BMI 23.5
== END 2023-10-06 16:03 | disposition home or self-care (01) ==
LOC: HO.PMCPRC 15:08
PROVIDERS: PCP Family Medicine; Visit Provider Anesthesiology
DX: M53.3 Sacrococcygeal disorders, not elsewhere classified (principal)
CPT/HCPCS: 27096

== ENCOUNTER 2023-10-08 09:30 | Outpatient (REF) | payer OTHER, SELFPAY | END 2023-10-08 09:31 | disposition home or self-care (01) | LOC: HO.LAB 09:30 | PROVIDERS: PCP Family Medicine; Visit Provider Urology | DX: N39.0 Urinary tract infection, site not specified (principal); M96.1 Postlaminectomy syndrome, not elsewhere classified; M53.3 Sacrococcygeal disorders, not elsewhere classified; M79.18 Myalgia, other site; M95.2 Other acquired deformity of head; M54.12 Radiculopathy, cervical region; M47.817 Spondylosis without myelopathy or radiculopathy, lumbosacral region; R31.29 Other microscopic hematuria; N95.2 Postmenopausal atrophic vaginitis | CPT/HCPCS: 81003; 87086; 87088; 87186; 99212 ==

== ENCOUNTER 2023-10-08 09:30 | Outpatient (AMB) | payer OTHER, SELFPAY ==
--- NOTE | 2023-10-08 09:37 | A.OFFVIS_ITS ---
Intake Intake Visit Reasons: 6m/recurrent UTI/microscopic hematuria (set) Intake Note: Patient presents today for a follow-up on Recurrent UTI & Microscopic Hematuria: Meds- Cranberry Extract, Nitro & Estradiol Allergies to Antibiotic- No Known Allergies Blood Thinner- None Patient Symptoms: NONE Communication Signals Intelligence Required: No Accompanied by: Self / Same As Patient Allergies Iodinated Contrast Media [CONTRAST, IV] Allergy (Intermediate, Verified 10/08/23 14:42) HIVES iopromide [From ULTRAVIST] Allergy (Mild, Verified 10/08/23 14:42) HIVES ibuprofen [From MOTRIN] Adverse Reaction (Intermediate, Verified 10/08/23 14:42) NAUSEA & VOMITING HPI HPI Comments History of Present Illness0 Details Miryam is a 57-year-old female who presents today to the office for a follow-up 10/08/2023-- Miryam has had recurrent UTIs she has been prescribed Vagifem suppositories and antibiotic prophylaxis with sexual activity and cranberry supplements also discussed. She states she did not get the low dose nitrofurantoin once she completed the previous abx treatment for prior UTI. The patient states that she has been using the vagifem suppositories She has chronic back pain, states recent back injection. Urinalysis nitrite positive leukocytes trace blood 3+ Review of chart: 01/19/23 for office cystoscopy.--findings- - Mild bladder wall thickening. Pelvic exam was notable for vaginal atrophy. 10/08/23: Plan:Prescribed Ceftin 500 mg B ID for 7 days. Ordered Nitrofurantoin 50 mg to use after the intercourse for antibiotic prophylaxis. Canberry supplements Cont vagifem as directed. [facility] Medical History Hyperlipidemia Non-toxic multinodular goiter Fibromyalgia Arthritis History of fibromyalgia History of anxiety History of headache Depression Lab test positive for detection of COVID-19 virus Asthma GERD (gastroesophageal reflux disease) Arthropathy of 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 Mother History of heart attack Social History Household Members: None Housing: Apartment Alcohol intake: never Patient Tobacco Use Status: Never used Tobacco Review of Systems Const All systems reviewed & are unremarkable except as noted in HPI and below Reports no additional complaints Eyes Reports no additional complaints ENT Reports no additional complaints Card Denies dyspnea Resp Denies cough and Denies dyspnea GI Reports no additional complaints Reports no additional complaints Musc Reports no additional complaints Skin/Breast Denies rash and Denies unusual bruising Neuro Reports no additional complaints Psych Reports no additional complaints Endo Reports no additional complaints Raman/Lymph Reports no additional complaints Aller/Immun Reports no additional complaints Results AMB Urinalysis, Automated UA Leukoctes 15 Maame/uL Last Edit by BENTLEY Schafer on 10/08/23 09:54 UA Nitrite Positive Last Edit by BENTLEY Schafer on 10/08/23 09:54 UA Urobilinogen 0.2 mg/dL Last Edit by BENTLEY Schafer on 10/08/23 09:5 4 UA Protein 15 mg/dL Last Edit by BENTLEY Schafer on 10/08/23 09:54 UA pH 5.5 Last Edit by BENTLEY Schafer on 10/08/23 09:54 UA Blood 200 Steve/uL Last Edit by BENTLEY Schafer on 10/08/23 09:54 3+ Tisha Lynch 10/08/23 09:54 UA Specific [place] 1.030 Last Edit by BENTLEY Schafer on 10/08/23 09: 54 UA Ketone Negative Last Edit by BENTLEY Schafer on 10/08/23 09:54 UA Bilirubin 0 mg/dL Last Edit by BENTLEY Schafer on 10/08/23 09:54 UA Glucose 0 mg/dL Last Edit by BENTLEY Schafer on 10/08/23 09:54 Results Reviewed Results Reviewed: Laboratory Last Values Urine pH (Auto) 5.5 10/08/23 09:47 Specific [place] (Auto) 1.030 10/08/23 09:47 Urine Protein (Auto) 15 mg/dL 10/08/23 09:47 Glucose (UA)(Auto) 0 mg/dL 10/08/23 09:47 Urine Ketones (Auto) Negative 10/08/23 09:47 Urine Blood (Auto) 200 Steve/uL 10/08/23 09:47 Urine Nitrite (Auto) Positive 10/08/23 09:47 Urine Bilirubin (Auto) 0 mg/dL 10/08/23 09:47 Urine Urobilinogen (Auto) 0.2 mg/dL 10/08/23 09:47 Leukocyte Esterase (Auto) 15 Maame/uL 10/08/23 09:47 Assessment & Plan Assessment & Plan (1) Recurrent urinary tract infection: Code(s): N39.0 - Urinary tract infection, site not specified (2) Post-menopausal atrophic vaginitis: Code(s): N95.2 - Postmenopausal atrophic vaginitis Plan Prescribed Ceftin 500 mg BID for 7 days. Ordered Nitrofurantoin 50 mg to use after the intercourse for antibiotic prophylaxis. Canberry supplements Cont vagifem as directed. Orders: Orders Urine Culture 10/08/23 N39.0 - Urinary tract infection, site not specified AMB Urinalysis Automated 10/08/23 Z13.9 - Encounter for screening, unspecified Medications: New cefuroxime axetil 500 mg PO BID 10 days 20 tabs 0RF nitrofurantoin macrocrystal 50 mg orally use after sexual activity; must admin ister with a meal/food 30 caps 2RF Refilled estradiol (Vagifem) use 2 times a week at bedtime, Mon/Thurs 10 mcg vaginal 2XW 24 tabs 2RF cranberry extract administer with meals 425 mg PO BID 60 caps 3RF Patient Instructions: The patient had an opportunity to ask questions regarding treatment plan. All questions were answered. Imaging, Laboratory studies and physical exam results were discussed and reviewed in detail. No major barriers to understanding were identified. The patient expressed understanding and agreement with the above treatment plan. The patient is aware they should contact our office by phone for worsening of their current condition or the appearance of new symptoms. Compliance is encouraged with any medications and followup testing that is ordered. It is a privilege to be allowed the opportunity to participate in the urologic care of your patient. If you have any questions or concerns regarding treatment for the above conditions please do not hesitate to contact me. The office telephone contact is [phone]. This note is constructed in part using voice recognition software. While every effort has been made to ensure accuracy security technician errors may have been included. Yours sincerely, Chela Almaguer MD Coding Level of Care Code Est Pt Level 4 (07762) Diagnoses Recurrent urinary tract infection N39.0 Post-menopausal atrophic vaginitis N95.2
== END 2023-10-08 10:27 | disposition home or self-care (01) ==
PROVIDERS: PCP Family Medicine; Visit Provider Urology
DX: N39.0 Urinary tract infection, site not specified (principal); N95.2 Postmenopausal atrophic vaginitis
CPT/HCPCS: 99214

== ENCOUNTER 2023-10-08 14:30 | Outpatient (AMB) | payer OTHER, SELFPAY ==
[2023-10-08 14:44] VITALS: BP 135/65; PULSE 66; RESP 16; BMI 23.9
--- NOTE | 2023-10-08 14:44 | A.OFFVIS_ITS ---
Intake Vital Signs 10/08/23 14:44 Height 4 ft 11 in Weight 118 lb 4 oz BMI 23.9 BP 135/65 Blood Pressure Location Lt brachial Position Sitting Respiration 16 Pulse 66 Pulse Source Pulse Oximeter Intake Visit Reasons: s/p genie Dx SIJ inj - Confirmed Allergies Iodinated Contrast Media [CONTRAST, IV] Allergy (Intermediate, Verified 10/08/23 14:42) HIVES iopromide [From ULTRAVIST] Allergy (Mild, Verified 10/08/23 14:42) HIVES ibuprofen [From MOTRIN] Adverse Reaction (Intermediate, Verified 10/08/23 14:42) NAUSEA & VOMITING HPI HPI Comments History of Present Illness Details Patient presents to the office today for follow up 2 days s/p bilateral diagnostic sacroiliac joint injections with local anesthetic. Pain today is rated as an 8/10. Worse on the left side. Patient reports that she did not notice improvement in her pain after the injection. She does report that the area was numb and this coincided with the area where her pain was however even with the numbness she still felt the pain. Today she reports pain is more midline lumbar vertebrae and less over PSIS. She has not been taking tizanidine, continuing to use the tramadol prescribed by her primary care provider. Prior: Patient presents back to the office today for follow up lower back pain. Patient last seen here in 10/2020, was lost to follow up. Today patient is complaining of pain across her lower back, left worse than right, with radiation to the thighs and groin. Pain is worse with sitting, walking, standing, using stairs and lying on her side. She has tried PT, muscle relaxers, tylenol, NSAIDS, HEP and prescription opioid medications. She states nothing helps her pain. Pain today rated as 9/10, constant. She has a pending EMG next week. Patient denies red flag symptoms including new loss of bowel, bladder or saddle anesthesia. Prior: Miryam is on the phone today after she did not show up for medial branch blocks L2 L3-dorsal ramus L4 (her L5 is completely sacralized.) She is suffering from hematuria and abdominal pain. She was placed on antibio tics. This is nitrofurantoin. She need to complete treatment for her hematuria and then call us back for continuation with pain management. It is quite possible that her pain in the back is related more to her kidneys rather than to the arthritis we wanted to address. Prior: She reports pain in an in the neck and pain in the lower back with radiation into the left lower extremity to the level of the knee but not below that level. She also suffers from multiple conditions which are painful including esophageal stricture and dysphagia and numbing and painful hands as well as bilateral knee pain.. She is being prescribed tramadol 50 mg b.i.d. for her pain. She reports that she had physical therapy in the past to treat her pain she had x-rays and CT scans available and dictated below. She reports that she had a surgery on her neck, she does not remember level however it would be logical to infer that her surgery would be at C6-C7 level where previous CT scan was reporting stenosis. Most likely this surgery was ACDF. She has a scar on anterior surface of the neck. Her past medical history significant for headaches, hypertension, fatigue, asthma, esophagus stricture, and arthritis. [facility] Medical History Hyperlipidemia Non-toxic multinodular goiter Fibromyalgia Arthritis History of fibromyalgia History of anxiety History of headache Depression Lab test positive for detection of COVID-19 virus Asthma GERD (gastroesophageal reflux disease) Arthropathy of 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 Mother History of heart attack Social History Household Members: None Housing: Apartment Alcohol intake: never Patient Tobacco Use Status: Never used Tobacco Review of Systems Const All systems reviewed & are unremarkable except as noted in HPI and below Physical Exam Vital Signs: Last Vital Signs Pulse 66 10/08/23 14:44 Resp 16 10/08/23 14:44 BP 135/65 10/08/23 14:44 BMI result Body Mass Index 23.9 General: awake, alert, oriented. Answers questions appropriately. Fully engaged in examination. Skin: warm, dry, intact HEENT: Normocephalic. Hearing intact. Cardiac: External chest normal in appearance. Respiratory: No cough, audible wheezing or stridor. Abdomen: without gross distension. MS: No obvious swelling or deformities. Able to stand on bilateral tiptoes and bilateral heels.? Able to transition from sit to stand unassisted. Ambulates with bilaterally normal heel strike and toe off SLR with a without dorsiflexion negative bilaterally Positive facet loading bilaterally Tender to palpation over lumbar paraspinal muscles, midline lumbar vertebrae Neurological: Oriented to person, place, time and situation. Thought process intact. No gait abnormalities appreciated. Psychiatric: Appropriate mood and affect. Good judgment and insight. Results AMB Urinalysis, Automated UA Leukoctes 15 Maame/uL Last Edit by EBNTLEY Schafer on 10/08/23 09:54 UA Nitrite Positive Last Edit by BENTLEY Schafer on 10/08/23 09:54 UA Urobilinogen 0.2 mg/dL Last Edit by BENTLEY Schafer on 10/08/23 09:5 4 UA Protein 15 mg/dL Last Edit by BENTLEY Schafer on 10/08/23 09:54 UA pH 5.5 Last Edit by BENTLEY Schafer on 10/08/23 09:54 UA Blood 200 Steve/uL Last Edit by BENTLEY Schafer on 10/08/23 09:54 3+ Tisha Lynch 10/08/23 09:54 UA Specific [place] 1.030 Last Edit by BENTLEY Schafer on 10/08/23 09: 54 UA Ketone Negative Last Edit by BENTLEY Schafer on 10/08/23 09:54 UA Bilirubin 0 mg/dL Last Edit by BENTLEY Schafer on 10/08/23 09:54 UA Glucose 0 mg/dL Last Edit by BENTLEY Schafer on 10/08/23 09:54 Results Reviewed Results Reviewed: 05/19/2023 MR/MR lumbar spine wo con FINDINGS: In keeping with numbering on prior MRI from 2019, the last well-formed disc space is designated L4-L5 with sacralization of L5 and rudimentary disc at L5-S1. T12 corresponds to the last rib-bearing vertebra using this numbering convention. Trace anterolisthesis of L3 on L4. Mild leftward curvature of the lumbar spine. No suspicious marrow signal or focal osseous lesion. The vertebral body heights are maintained. Mild multilevel disc desiccation and height loss. The conus medullaris terminates at the level of L1-L2. The distal spinal cord is normal in appearance. The cauda equina nerve roots appear normal. No significant abnormalities of the paraspinal musculature. Limited evaluation of the intra-abdominal structures without significant abnormalities. Small left renal cyst. The abdominal aorta is of normal contour and caliber. Small left-sided sacral Tarlov cysts. SPINAL LEVELS: L1-L2: No significant spinal canal or neuroforaminal narrowing. L2-L3: Shallow right eccentric disc bulge. Mild facet arthropathy. No significant central spinal canal stenosis. Stable mild right neural foraminal narrowing L3-L4: Trace anterolisthesis. Shallow disc bulge, mild to moderate facet arthropathy stable bilateral subarticular zone narrowing and mild bilateral neural foraminal narrowing. Stable abutment of the exiting right L3 nerve root by a right extraforaminal component of disc bulge. L4-L5: No significant spinal canal or neuroforaminal narrowing. Moderate facet arthropathy. Shallow disc bulge. L5-S1: No significant spinal canal or neuroforaminal narrowing. IMPRESSION: 1. Transitional lumbosacral anatomy with sacralization of L5 and rudimentary disc at L5-S1. 2. Mild multilevel lumbar spondylosis has not significantly progressed compared to MRI from 2019. No significant central spinal canal stenosis or high-grade neural foraminal narrowing. At L3-L4, there is trace anterolisthesis with stable bilateral subarticular zone narrowing, mild bilateral neural foraminal narrowing, and abutment of the extraforaminal right L3 nerve root by disc material. Assessment & Plan Assessment & Plan (1) Spondylosis of lumbosacral spine without myelopathy: Code(s): M47.817 - Spondylosis without myelopathy or radiculopathy, lumbosacral region (2) Postlaminectomy syndrome, cervical: Comment: opioid rx Code(s): M96.1 - Postlaminectomy syndrome, not elsewhere classified (3) Sacroiliac joint dysfunction of right side: Code(s): M53.3 - Sacrococcygeal disorders, not elsewhere classified (4) Sacroiliac joint dysfunction of left side: Code(s): M53.3 - Sacrococcygeal disorders, not elsewhere classified (5) Myofascial muscle pain: Code(s): M79.18 - Myalgia, other site (6) Cervical radiculopathy: Code(s): M54.12 - Radiculopathy, cervical region Plan Miryam presented to the office today for follow-up, 2 days status post bilateral diagnostic sacroiliac joint injections. Patient reports numbness after the injections but states her pain persisted. She denies benefit pain relief in the hours after the diagnostic injections. Discussed options for treatment including diagnostic interventional testing, steroid injections, peripheral nerve stimulation with Sprint, RFA and more permanent neuromodulation. Patient has exhausted conservative treatment including physical therapy, home exercise program, 10s unit, acupuncture and injections. She has tried nonsteroidal anti-inflammatory medication, muscle relaxers and prescription opioid medications. Discussed option for diagnostic bilateral L3-L4 DR L5 MBBs with local anesthetic. Patient states she has too much going on at this time, multiple visits with different providers, too many appointments and she wants to hold off on any further appointments for interventional pain management at this time. All questions and concerns have been answered and patient agrees with the plan. Patient will call the office to arrange for follow-up and she is ready to proceed with next steps. Coding Level of Care Code Est Pt Level 3 (51231) Diagnoses Spondylosis of lumbosacral spine without myelopathy M47.817 Postlaminectomy syndrome, cervical M96.1 Sacroiliac joint dysfunction of right side M53.3 Sacroiliac joint dysfunction of left side M53.3 Myofascial muscle pain M79.18 Cervical radiculopathy M54.12
== END 2023-10-08 14:56 | disposition home or self-care (01) ==
PROVIDERS: PCP Family Medicine; Visit Provider Registered Nurse Emergency
DX: M47.817 Spondylosis without myelopathy or radiculopathy, lumbosacral region (principal); M96.1 Postlaminectomy syndrome, not elsewhere classified; M53.3 Sacrococcygeal disorders, not elsewhere classified; M79.18 Myalgia, other site; M54.12 Radiculopathy, cervical region
CPT/HCPCS: 99213

== ENCOUNTER 2023-10-29 09:51 | Outpatient (AMB) | payer OTHER, SELFPAY ==
--- NOTE | 2023-10-29 10:09 | AM.OFFVISNUR ---
Intake Intake Visit Reasons: urine check Allergies Iodinated Contrast Media [CONTRAST, IV] Allergy (Intermediate, Verified 10/08/23 14:42) HIVES iopromide [From ULTRAVIST] Allergy (Mild, Verified 10/08/23 14:42) HIVES ibuprofen [From MOTRIN] Adverse Reaction (Intermediate, Verified 10/08/23 14:42) NAUSEA & VOMITING Nursing Note patient seen for urine check per departure plan note. Urinalysis showed no signs of infection. Results AMB Urinalysis, Automated UA Leukoctes 0 Maame/uL Last Edit by Jonas Canales LPN on 10/29/23 10:18 UA Nitrite Negative Last Edit by Jonas Canales LPN on 10/29/23 10:18 UA Urobilinogen 0 mg/dL Last Edit by Jonas Canales LPN on 10/29/23 10:18 UA Protein 15 mg/dL Last Edit by Jonas Canales LPN on 10/29/23 10:18 UA pH 7.0 Last Edit by Jonas Canales LPN on 10/29/23 10:18 UA Blood 200 Steve/uL Last Edit by Jonas Canales LPN on 10/29/23 10:18 UA Specific [place] 1.015 Last Edit by Jonas Canales LPN on 10/29/23 10:18 UA Ketone Negative Last Edit by Jonas Canales LPN on 10/29/23 10:18 UA Bilirubin 0 mg/dL Last Edit by Jonas Canales LPN on 10/29/23 10:18 UA Glucose 0 mg/dL Last Edit by Jonas Canales LPN on 10/29/23 10:18 Coding Assessment & Plan Assessment & Plan Orders: Orders AMB Urinalysis Automated Today N39.0 - Urinary tract infection, site not specified, R31.9 - Hematuria, unspecified
== END 2023-10-29 10:33 | disposition home or self-care (01) ==
LOC: HO.HUSH 09:52
PROVIDERS: PCP Family Medicine; Visit Provider Urology
DX: N39.0 Urinary tract infection, site not specified (principal); R31.9 Hematuria, unspecified

== ENCOUNTER → 2023-10-29 09:51 | Outpatient (BNVA) | payer OTHER, SELFPAY | PROVIDERS: PCP Family Medicine; Visit Provider Urology | DX: N39.0 Urinary tract infection, site not specified (principal) | CPT/HCPCS: 81003 ==

== ENCOUNTER 2023-10-30 09:17 | Outpatient (AMB) | payer OTHER, SELFPAY ==
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
== END 2023-10-30 09:53 | disposition home or self-care (01) ==
LOC: HO.HGI 09:17
PROVIDERS: PCP Family Medicine; Visit Provider Internal Medicine Gastroenterology
DX: R10.13 Epigastric pain (principal)
CPT/HCPCS: 99442

== ENCOUNTER → 2023-10-30 09:17 | Outpatient (BNVA) | payer OTHER, SELFPAY | PROVIDERS: PCP Family Medicine; Visit Provider Internal Medicine Gastroenterology ==

== ENCOUNTER 2023-11-04 18:15 | Outpatient (REF) | payer OTHER, SELFPAY ==
--- NOTE | ~2023-11-04 | MR_ITS ---
EXAMINATION: MR LUMBAR SPINE WITHOUT CONTRAST CLINICAL INFORMATION: Chronic low back pain radiating into lower extremities COMPARISON: MRI lumbar spine 05/19/2023 TECHNIQUE: MRI of the lumbar spine was obtained using routine sequences without contrast. FINDINGS: In keeping with prior numbering schema, the last well-formed disc space will be designated as L4-L5 with a sacralized L5 segment and rudimentary L5-S1 disc space. There is mid to lower lumbar levocurvature. Preserved lumbar lordosis. Trace anterolisthesis at L3-L4. Vertebral body heights are maintained. There is no suspicious osseous lesion. Redemonstrated disc desiccation from L2-L3 through L4-L5 with mild right eccentric L3-L4 disc height loss and associated right-sided type II Modic endplate changes along the L3 inferior endplate. Level by level detail as follows: L1-L2: No spinal canal or neural foraminal stenosis. L2-L3: Redemonstrated right eccentric annular disc bulge with punctate right subarticular annular fissure and mild bilateral facet arthrosis with ligamentum flavum thickening. No spinal canal stenosis. Stable mild right greater than left neural foraminal stenosis with encroachment upon the extraforaminal right L2 nerve root. L3-L4: Uncovered posterior disc material/pseudodisc bulge, right subarticular annular fissure, and moderate bilateral facet arthrosis. No spinal canal stenosis. Stable mild bilateral neural foraminal stenosis with contact along the extraforaminal right greater than left L3 nerve roots. L4-L5: Annular disc bulge, advanced left and moderate right facet arthrosis. No spinal canal stenosis. Stable minimal left greater than right neural foraminal encroachment. L5-S1: No spinal canal or neural foraminal stenosis. The conus medullaris terminates at the level of L1-L2. A couple Tarlov cyst. The distal spinal cord is normal in appearance. No epidural fluid collection, hematoma, or mass. No significant abnormalities of the paraspinal musculature. Small left renal cyst not requiring further imaging follow-up. The abdominal aorta is of normal contour and caliber. MR/MR lumbar spine wo con IMPRESSION: 1. In keeping with prior numbering schema, the last well-formed disc space will be designated as L4-L5 with a sacralized L5 segment. 2. Stable mild lumbar spondylosis without significant spinal canal stenosis or high-grade neural foraminal stenosis. At L2-L3 and L3-L4, there is mild bilateral neural foraminal stenosis with contact along the extraforaminal right L2 and L3 nerve roots, respectively.
== END 2023-11-04 18:16 | disposition home or self-care (01) ==
LOC: HO.MRI 18:15
PROVIDERS: PCP Family Medicine; Visit Provider Family Medicine
DX: M54.50 Low back pain, unspecified (principal); G89.29 Other chronic pain
CPT/HCPCS: 72148

== ENCOUNTER 2024-01-07 09:53 | Outpatient (AMB) | payer OTHER, SELFPAY ==
--- NOTE | 2024-01-07 09:55 | A.OFFVIS_ITS ---
Intake Visit Reasons: 3m follow up Intake Note: Patient presents today for a follow-up on Recurrent UTI & Microscopic Hematuria: Meds- Cranberry Extract, Nitro & Estradiol Allergies to Antibiotic- No Known Allergies Blood Thinner- None Etl Programmer Required: No Accompanied by: Self / Same As Patient Allergies Iodinated Contrast Media [CONTRAST, IV] Allergy (Intermediate, Verified 01/07/24 09:55) HIVES iopromide [From ULTRAVIST] Allergy (Mild, Verified 01/07/24 09:55) HIVES ibuprofen [From MOTRIN] Adverse Reaction (Intermediate, Verified 01/07/24 09:55) NAUSEA & VOMITING HPI Comments Details: Miryam is a 57-year-old female who presents today to the office for a follow-up. She is followed for recurrent UTIs. She is prescribed Vagifem and I have discussed antibiotic prophylaxis with sexual activity. Discussed and prescribed cranberry supplements. She states she has been doing well she has not had a recent UTI. She states that she has chronic back pain and recently had an injection but she is still feeling pain. Urinalysis- persistent microscopic hematuria no signs of infection. In review of chart renal ultrasound 04/28/23-kidneys within normal limits. Plan discussed continue Vagifem, cranberry supplements, nitrofurantoin 50 mg after intercourse. Review of chart: 10/08/2023-- Miryam has had recurrent UTIs she has been prescribed Vagifem suppositories and antibiotic prophylaxis with sexual activity and cranberry supplements also discussed. She states she did not get the low dose nitrofurantoin once she completed the previous abx treatment for prior UTI. The patient states that she has been using the vagifem suppositories She has chronic back pain, states recent back injection. Urinalysis nitrite positive leukocytes trace blood 3+. Plan--Prescribed Ceftin 500 mg BID for 7 days. Ordered Nitrofurantoin 50 mg to use after the intercourse for antibiotic prophylaxis. Canberry supplements. Cont vagifem as directed. 01/19/23 for office cystoscopy.--findings-- Mild bladder wall thickening. Pelvic exam was notable for vaginal atrophy. 01/07/24: Plan --Continue Vagifem, cranberry supplements, nitrofurantoin 50 mg after intercourse. FU one year. [facility] Medical History Hyperlipidemia Non-toxic multinodular goiter Fibromyalgia Arthritis History of fibromyalgia History of anxiety History of headache Depression Lab test positive for detection of COVID-19 virus Asthma GERD (gastroesophageal reflux disease) Arthropathy of 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 Mother History of heart attack Social History Household Members: None Housing: Apartment Alcohol intake: never Patient Tobacco Use Status: Never used Tobacco Review of Systems Const All systems reviewed & are unremarkable except as noted in HPI and below Reports no additional complaints Eyes Reports no additional complaints ENT Reports no additional complaints Card Reports no additional complaints Resp Reports no additional complaints GI Reports no additional complaints Reports as per HPI Musc Reports no additional complaints Skin/Breast Reports system reviewed and no additional complaints, except as documented Neuro Reports no additional complaints Psych Reports no additional complaints Endo Reports no additional complaints Raman/Lymph Reports no additional complaints Aller/Immun Reports no additional complaints Results AMB Urinalysis, Automated UA Leukoctes 0 Maame/uL Last Edit by BENTLEY Schafer on 01/07/24 10:11 UA Nitrite Negative Last Edit by BENTLEY Schafer on 01/07/24 10:11 UA Urobilinogen 0.2 mg/dL Last Edit by BENTLEY Schafer on 01/07/24 10:1 1 UA Protein 0 mg/dL Last Edit by BENTLEY Schafer on 01/07/24 10:11 UA pH 7.0 Last Edit by Tisha Lynch BENTELY on 01/07/24 10:11 UA Blood 25 Steve/uL Last Edit by Tisha Lynch BENTLEY on 01/07/24 10:11 1+ Tisha Lynch 01/07/24 10:11 UA Specific [place] 1.015 Last Edit by AAYUSH SchaferRasheeda on 01/07/24 10: 11 UA Ketone Negative Last Edit by AAYUSH SchaferRasheeda on 01/07/24 10:11 UA Bilirubin 0 mg/dL Last Edit by AAYUSH SchaferA on 01/07/24 10:11 UA Glucose 0 mg/dL Last Edit by BENTLEY Schafer on 01/07/24 10:11 Results Reviewed Results Reviewed: Date of Service: 04/28/23 EXAMINATION: US RETROPERITONEAL COMPLETE (RENAL) CLINICAL INFORMATION: Acute low back pain, urinary frequency, history of kidney stones. COMPARISON: Ultrasound kidneys and bladder 12/25/2022. CT abdomen and pelvis 11/18/2021. Ultrasound abdomen complete 06/12/2020. X-ray abdomen 10/24/2019. TECHNIQUE: Real-time imaging of the kidneys and bladder. FINDINGS: RIGHT KIDNEY: 9.1 x 3.9 x 5.8 cm (SAG x AP x TRV). The kidney is normal in size, contour, and echogenicity. Renal cortical thickness is normal. No renal calculi or hydronephrosis. 0.7 x 0.6 x 0.7 cm simple cyst is seen in the upper pole. No follow-up imaging of this finding is recommended. LEFT KIDNEY: 9.2 x 4.7 x 4.9 cm (SAG x AP x TRV). The kidney is normal in size, contour, and echogenicity. Renal cortical thickness is normal. No renal calculi or hydronephrosis. 1.0 x 0.8 x 1.1 cm simple cyst is seen in the lower pole. No follow-up imaging of this finding is recommended. BLADDER: Well distended and normal. Bilateral ureteral jets are demonstrated. Prevoid bladder volume is 282 mL. Postvoid bladder volume is 12 mL. IMPRESSION: 1. No significant finding within the kidneys. No renal calculi. 2. Minimal post void residual. Assessment & Plan Assessment & Plan (1) Recurrent urinary tract infection: Code(s): N39.0 - Urinary tract infection, site not specified Category: Medical (2) Post-menopausal atrophic vaginitis: Code(s): N95.2 - Postmenopausal atrophic vaginitis Category: Medical (3) Microhematuria: Code(s): R31.29 - Other microscopic hematuria Category: Medical Plan Continue Vagifem, cranberry supplements, nitrofurantoin 50 mg after intercourse. FU one year. Orders: Orders AMB Urinalysis Automated Today Z13.9 - Encounter for screening, unspecified Medications: Refilled cranberry extract administer with meals 425 mg PO BID 60 caps 3RF nitrofurantoin macrocrystal 50 mg orally use after sexual activity; must administer with a meal/food 30 caps 2RF estradiol (Vagifem) use 2 times a week at bedtime, Mon/Thurs 10 mcg vaginal 2XW 24 tabs 2RF Patient Instructions: The patient had an opportunity to ask questions regarding treatment plan. The patient expressed understanding and agreement with the above treatment plan. The patient is aware they should contact our office by phone for worsening of their current condition or the appearance of new symptoms. Compliance is encouraged with any medications and followup testing that is ordered. It is a privilege to be allowed the opportunity to participate in the urologic care of your patient. If you have any questions or concerns regarding treatment for the above conditions please do not hesitate to contact me. The office telephone contact is [phone]. This note is constructed in part using voice recognition software. While every effort has been made to ensure accuracy transfer worker errors may have been included. Yours sincerely, Chela Almaguer MD Coding Level of Care Code Est Pt Level 4 (53780) Diagnoses Recurrent urinary tract infection N39.0 Post-menopausal atrophic vaginitis N95.2 Microhematuria R31.29
== END 2024-01-07 10:17 | disposition home or self-care (01) ==
PROVIDERS: PCP Family Medicine; Visit Provider Urology
DX: N39.0 Urinary tract infection, site not specified (principal); N95.2 Postmenopausal atrophic vaginitis; R31.29 Other microscopic hematuria; Z13.9 Encounter for screening, unspecified
CPT/HCPCS: 99214

== ENCOUNTER → 2024-01-07 09:53 | Outpatient (BNVA) | payer OTHER, SELFPAY | PROVIDERS: PCP Family Medicine; Visit Provider Urology | DX: R31.29 Other microscopic hematuria (principal); N39.0 Urinary tract infection, site not specified; N95.2 Postmenopausal atrophic vaginitis | CPT/HCPCS: 81003; 99212 ==

== ENCOUNTER 2024-02-26 17:55 | Outpatient (REF) | payer OTHER, SELFPAY ==
--- NOTE | ~2024-02-26 | MR_ITS ---
EXAMINATION: MR CERVICAL SPINE WITHOUT CONTRAST CLINICAL INFORMATION: Chronic neck pain COMPARISON: MRI cervical spine 06/17/2017, thyroid ultrasound 06/16/2023 TECHNIQUE: MRI of the cervical spine was obtained using routine sequences without contrast. FINDINGS: Postsurgical changes from interval ACDF at C6-C7. Normal anatomic alignment. No suspicious marrow signal or focal osseous lesion. The vertebral body heights are maintained. Mild disc height loss at C4-C5. The cervical spinal cord is normal in caliber and signal. 2 cm predominantly T1 and T2 hyperintense nodule lobe inferior left hemithyroid and 1.1 cm nodule in the thyroid isthmus. The flow voids of the major cervical vessels are maintained. Normal appearance of the cervicomedullary junction and visualized posterior fossa SPINAL LEVELS: C2-C3: No significant spinal canal or neuroforaminal narrowing C3-C4: No significant spinal canal or neuroforaminal narrowing C4-C5: Mild facet arthropathy. New left eccentric disc osteophyte complex resulting in moderate central spinal canal stenosis. New mild to moderate bilateral neural foraminal narrowing. C5-C6: Right eccentric disc osteophyte complex and right greater than left uncovertebral hypertrophy. Progressive moderate right neural foraminal narrowing. No significant central spinal canal stenosis. C6-C7: Postsurgical changes. No significant spinal canal or neuroforaminal narrowing C7-T1: No significant spinal canal or neuroforaminal narrowing shallow disc bulge and mild facet arthropathy. MR/MR cervical spine wo con IMPRESSION: 1. Postsurgical changes from interval ACDF at C6-C7. 2. At C4-C5, there is new left eccentric disc osteophyte complex resulting in moderate spinal canal stenosis and mild to moderate bilateral neural foraminal narrowing. 3. At C5-C6, there is progressive right eccentric disc osteophyte complex and uncovertebral hypertrophy resulting in moderate right neural foraminal narrowing. 4. Thyroid nodules, largest measuring up to 2 cm in the left hemithyroid. Recommend correlation with prior thyroid ultrasound.
== END 2024-02-26 17:56 | disposition home or self-care (01) ==
LOC: HO.MRI 17:55
PROVIDERS: PCP Family Medicine; Visit Provider Family Medicine
DX: M54.2 Cervicalgia (principal); G89.29 Other chronic pain
CPT/HCPCS: 72141

== ENCOUNTER 2024-03-30 09:30 | Outpatient (AMB) | payer OTHER, SELFPAY ==
[2024-03-30 09:38] VITALS: BP 110/74; PULSE 64; BMI 25.2
--- NOTE | 2024-03-30 09:38 | A.OFFVIS_ITS ---
Vital Signs 03/30/24 09:38 Height 4 ft 11 in Weight 125 lb 0.034 oz BMI 25.2 BP 110/74 Blood Pressure Location Lt brachial Position Sitting Pulse 64 Pulse Source Pulse Oximeter Intake Visit Reasons: Thyroid Nod Intake Note: Patient present today for thyroid nodule follow up visit. Supervisor Winding Department Required: No Accompanied by: Self / Same As Patient Allergies Iodinated Contrast Media [CONTRAST, IV] Allergy (Intermediate, Verified 03/30/24 09:42) HIVES iopromide [From ULTRAVIST] Allergy (Mild, Verified 03/30/24 09:42) HIVES ibuprofen [From MOTRIN] Adverse Reaction (Intermediate, Verified 03/30/24 09:42) NAUSEA & VOMITING Medication List - Last Reconciled 03/30/24 by Jaime Allen MD acetaminophen ER mg PO albuterol sulfate 90 mcg/actuation 2 puffs PO Q4-6H PRN atorvastatin 10 mg PO BEDTIME buspirone 5 mg PO TID ibwifewvdk-apmsiapftcoak-mexz 50-325-40 mg 1 tab PO BID PRN clonazepam 1 tab PO DAILY PRN cranberry extract 425 mg PO BID diclofenac sodium 1% 1 ea topical BID dicyclomine 10 mg PO TID diphenhydramine HCl (Allergy (diphenhydramine)) 50 mg (2 x 25 mg) PO DIRECTED docusate sodium 100 mg PO BID PRN escitalopram oxalate 10 mg PO DAILY estradiol (Vagifem) 10 mcg vaginal 2XW famotidine 40 mg PO BEDTIME fluticasone furoate 100 mcg/actuation (Arnuity Ellipta) 1 inh inhalation DAILY fluticasone propionate 110 mcg/actuation (Flovent HFA) 1 puff inhalation BID fluticasone propionate 50 mcg/actuation 1 spray intranasal DAILY gabapentin 400 mg PO TID lansoprazole 30 mg PO BID loratadine 10 mg PO DAILY nitrofurantoin macrocrystal 50 mg orally use after sexual activity; must administer with a meal/food prednisone 50 mg PO DIRECTED 1 day sennosides (senna) 17.2 mg PO DAILY tizanidine 2 mg PO TID tizanidine 2 mg PO BID PRN topiramate 25 mg PO DAILY PRN tramadol 50 mg PO BID PRN zolpidem 1 tab PO BEDTIME PRN HPI Comments Details: 58 -year-old female, today for follow-up visit, nontoxic multinodular goiter She denies cold or heat intolerance, weight loss or gain, diarrhea, constipation, insomnia, fatigue, dry skin, denies dyspnea, dysphonia, tremors, palpitations, irritability, anxiety. Family History: Has negative family history of thyroid disease. Patient had fine-needle aspiration of isthmic/left thyroid nodule that was benign follicular nodule cystic degeneration [place] category 2 on 07/08/2018. Repeat FNA of left upper pole left lower pole and isthmus nodule were benign cytology 04/09/2020 barium swallowing study Mild indentation of the posterior cervical esophageal wall from the metallic plate and screws for C6 and C7 ventral fusion but no obstruction is seen. The rest of the esophagus is unremarkable. No gastroesophageal reflux or hiatal hernia. Date of Service: 03/19/21 US THYROID Right Thyroid Lobe: 4.6 x 1.2 x 1.5 cm, volume 4.2 mL. Previously 4.6 x 1.1 x 1.3 cm, volume 3.6 mL. Parenchyma: The gland echotexture is homogeneous. Thyroid vascularity is normal. Left Thyroid Lobe: 4.8 x 1.2 x 1.4 cm, volume 4.2 mL. Previously 4.9 x 1.6 x 1.2 cm, volume 4.8 mL. Parenchyma: The gland echotexture is homogeneous. Thyroid vascularity is normal. Isthmus: 0.3 cm in maximum AP dimension. Previously 0.5 cm. Estimated total number of nodules greater than or equal to 1 cm: 2. Top Lift Nailer nodules are described as follows: 1. Location: Right lower pole. Size: 0.4 x 0.3 x 0.4 cm, volume 0.02 mL. Previously: 0.4 x 0.4 x 0.4 cm, volume 0.03 mL. Nodule characteristics: Composition: Solid/almost completely solid (2). Echogenicity: Hyperechoic (1). Shape: Not taller than wide (0). Margins: Smooth (0). Echogenic Foci: Peripheral calcifications (2). ACR TI-RADS total points: 5: ACR TI-RADS category: 4 Significant change in size (>/= 20% in 2 dimensions and minimal increase of 2 mm or 50% or greater increase in volume): Change in features: Change in ACR TI-RADS risk category: 2. Location: Left upper pole. Size: 1.0 x 0.8 x 0.8 cm, volume 0.36 mL. Previously: 1.0 x 1.0 x 0.8 cm, volume 0.38 mL. Nodule characteristics: Composition: Solid/almost completely solid (2). Echogenicity: Hypoechoic (2). Shape: Not taller than wide (0). Margins: Smooth (0). Echogenic Foci: None (0). ACR TI-RADS total points: 4 ACR TI-RADS category: 4 Significant change in size (>/= 20% in 2 dimensions and minimal increase of 2 mm or 50% or greater increase in volume): Change in features: Change in ACR TI-RADS risk category: 3. Location: Left mid pole. Size: 0.4 x 0.2 x 0.3 cm, volume 0.014 mL. Previously: 0.5 x 0.3 x 0.3 cm, volume 0.02 mL. Nodule characteristics: Composition: Solid/almost completely solid (2). Echogenicity: Hypoechoic (2). Shape: Not taller than wide (0). Margins: Smooth (0). Echogenic Foci: None (0). ACR TI-RADS total points: 4 ACR TI-RADS category: 4 Significant change in size (>/= 20% in 2 dimensions and minimal increase of 2 mm or 50% or greater increase in volume): Change in features: Change in ACR TI-RADS risk category: 4. Location: Left lower pole. Size: 1.4 x 0.9 x 1.2 cm, volume 0.78 mL. Previously: 1.1 x 1.3 x 1.2 cm, volume 0.9 mL. Nodule characteristics: Composition: Mixed cystic and solid (1). Echogenicity: Hyperechoic (1). Shape: Not taller than wide (0). Margins: Smooth (0). Echogenic Foci: None (0). ACR TI-RADS total points: 2 ACR TI-RADS category: 2 Significant change in size (>/= 20% in 2 dimensions and minimal increase of 2 mm or 50% or greater increase in volume): Change in features: Change in ACR TI-RADS risk category: 5. Location: Isthmus, lower pole. Size: 1.0 x 0.6 x 1.3 cm, volume 0.36 mL. Previously: 1.5 x 1.2 x 1.3 cm, volume 1.2 mL. Nodule characteristics: Composition: Mixed cystic and solid (1). Echogenicity: Hypoechoic (2). Shape: Not taller than wide (0). Margins: Smooth (0). Echogenic Foci: None (0). ACR TI-RADS total points: 3 ACR TI-RADS category: 3 Significant change in size (>/= 20% in 2 dimensions and minimal increase of 2 mm or 50% or greater increase in volume): Change in features: Change in ACR TI-RADS risk category: NODES: No lymphadenopathy is seen in the tissue surrounding the thyroid gland. 02/02/2020 TSH 1.12 mIU/mL Free T4 0.99 dL. Laboratory Tests 12/04/20 13:10 TSH 1.00 Free T4 0.85 Repeat thyroid ultrasound 06/16/2023 showed no change in the size of the nodules FINDINGS: SIZE: Measurements of the thyroid lobes and nodules are given in sagittal, anteroposterior and transverse dimensions respectively. Right Thyroid Lobe: 5.0 x 1.3 x 1.5 cm, volume 5.1 mL. Previously 4.9 x 1.4 x 1.2 cm, volume 4.3 mL. Parenchyma: The gland echotexture is homogeneous. Thyroid vascularity is increased. Left Thyroid Lobe: 5.3 x 1.5 x 1.2 cm, volume 5.0 mL. Previously 5.5 x 1.3 x 1.4 cm, volume 5.2 mL. Parenchyma: The gland echotexture is heterogeneous. Thyroid vascularity is increased. Isthmus: 0.4 cm in maximum AP dimension. Previously 0.4 cm. Estimated total number of nodules greater than or equal to 1 cm: 3. Top Lift Nailer nodules are described as follows: 1. Location: Lower pole isthmus. Size: 1.7 x 0.9 x 1.2 cm, volume 0.9 mL. Previously: 1.7 x 1.1 x 1.6 cm, volume 1.6 mL. Nodule characteristics: Composition: Solid/almost completely solid (2). Echogenicity: Hypoechoic (2). Shape: Not taller than wide (0). Margins: Smooth (0). Echogenic Foci: Comet-tail artifacts (0). ACR TI-RADS total points: 4 Previous: 4 ACR TI-RADS category: 4 Previous: 4 Significant change in size (>/= 20% in 2 dimensions and minimal increase of 2 mm or 50% or greater increase in volume): No Change in features: No Change in ACR TI-RADS risk category: No 2. Location: Right lower pole. Size: 0.4 x 0.3 x 0.4 cm, volume 0.02 mL. Previously: 0.3 x 0.4 x 0.4 cm, volume 0.03 mL. Nodule characteristics: Composition: Solid/almost completely solid (2). Echogenicity: Hyperechoic (1). Shape: Not taller than wide (0). Margins: Smooth (0). Echogenic Foci: Peripheral calcifications (2). ACR TI-RADS total points: 5 Previous: 5 ACR TI-RADS category: 4 Previous: 4 Significant change in size (>/= 20% in 2 dimensions and minimal increase of 2 mm or 50% or greater increase in volume): No Change in features: No Change in ACR TI-RADS risk category: No 3. Location: Left upper pole. Size: 1.4 x 0.8 x 0.9 cm, volume 0.5 mL. Previously: 1.4 x 0.7 x 0.9 cm, volume 0.5 mL. Nodule characteristics: Composition: Solid (2). Echogenicity: Hypoechoic (2). Shape: Not taller than wide (0). Margins: Smooth (0). Echogenic Foci: None (0). ACR TI-RADS total points: 4 Previous: 4 ACR TI-RADS category: 4 Previous: 4 Significant change in size (>/= 20% in 2 dimensions and minimal increase of 2 mm or 50% or greater increase in volume): No Change in features: No Change in ACR TI-RADS risk category: No 4. Location: Left mid pole. Size: 0.4 x 0.3 x 0.3 cm, volume 0.02 mL. Previously: 0.3 x 0.2 x 0.3 cm, volume 0.01 mL. Nodule characteristics: Composition: Solid (2). Echogenicity: Hypoechoic (2). Shape: Not taller than wide (0). Margins: Smooth (0). Echogenic Foci: None (0). ACR TI-RADS total points: 4 Previous: 4 ACR TI-RADS category: 4 Previous: 4 Significant change in size (>/= 20% in 2 dimensions and minimal increase of 2 mm or 50% or greater increase in volume): Yes Change in features: No Change in ACR TI-RADS risk category: No 5. Location: Left lower pole. Size: 1.9 x 1.3 x 1.8 cm, volume 2.3 mL. Previously: 1.6 x 1.1 x 1.7 cm, volume 1.6 mL. Nodule characteristics: Composition: Mixed cystic and solid (1). Echogenicity: Isoechoic (1). Shape: Not taller than wide (0). Margins: Smooth (0). Echogenic Foci: Comet-tail artifacts (0). ACR TI-RADS total points: 2 Previous: 2 ACR TI-RADS category: 2 Previous: 2 Significant change in size (>/= 20% in 2 dimensions and minimal increase of 2 mm or 50% or greater increase in volume): No Change in features: Currently more cystic-appearing. Change in ACR TI-RADS risk category: No NODES: No lymphadenopathy is seen in the tissue surrounding the thyroid gland. US/US thyroid IMPRESSION: Multiple bilateral thyroid nodules including 1.7 cm isthmus TI RADS 4 nodule for which fine-needle aspiration recommended if not previously performed. 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 Mother History of heart attack Social History Household Members: None Housing: Apartment Alcohol intake: never Patient Tobacco Use Status: Never used Tobacco Physical Exam Const Other: Thyroid gland is normal size weighs by 15 g . There are no thyroid nodules palpated. There is no cervical adenopathy palpated Assessment & Plan Assessment & Plan (1) Non-toxic multinodular goiter: Code(s): E04.2 - Nontoxic multinodular goiter Category: Medical Plan: This is a 57-year-old female with a history of multinodular goiter status post FNA of an isthmus nodule in 2018 with benign cytology. Repeat FNA of left upper, left lower and isthmus nodule benign . She appears to be clinically y euthyroid. Thyroid ultrasound in 08/2023 showed no change in the size of the nodules The plan is to recheck TSH and free T4. Assuming above is normal, patient returned to the care of her primary care provider who can check another thyroid ultrasound about 1-2 years time. If this a significant change in the size or characteristics of the nodules, patient returned back to endocrinology Orders: Orders Free T4 (Free Thyroxine) Today E04.2 - Nontoxic multinodular goiter Thyroid Stimulating Hormone Today E04.2 - Nontoxic multinodular goiter Coding Level of Care Code Est Pt Level 3 (74073) Diagnoses Non-toxic multinodular goiter E04.2
== END 2024-03-30 10:37 | disposition home or self-care (01) ==
PROVIDERS: PCP Family Medicine; Visit Provider Internal Medicine Endocrinology, Diabetes & Metabolism
DX: E04.2 Nontoxic multinodular goiter (principal)
CPT/HCPCS: 99213

== ENCOUNTER → 2024-03-30 09:30 | Outpatient (BNVA) | payer OTHER, SELFPAY | PROVIDERS: PCP Family Medicine; Visit Provider Internal Medicine Endocrinology, Diabetes & Metabolism ==

== ENCOUNTER 2024-03-30 09:53 | Outpatient (REF) | payer OTHER, SELFPAY ==
[2024-03-30 12:16] LABS: Free T4 (Free Thyroxine) 0.92 ng/dL (0.71-1.85); Thyroid Stimulating Hormone 1.25 uIU/mL (0.32-4.0)
== END 2024-03-30 09:54 | disposition home or self-care (01) ==
LOC: HO.10HDL 09:53
PROVIDERS: Visit Provider Internal Medicine Endocrinology, Diabetes & Metabolism
DX: E04.2 Nontoxic multinodular goiter (principal)
CPT/HCPCS: 36415; 84439; 84443; 99212

== ENCOUNTER 2024-04-22 09:51 | Outpatient (AMB) | payer OTHER, SELFPAY ==
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
[2024-04-22 09:59] VITALS: BP 132/78; PULSE 71; BMI 24.9
== END 2024-04-22 10:34 | disposition home or self-care (01) ==
PROVIDERS: PCP Family Medicine; Visit Provider Internal Medicine Gastroenterology
DX: M79.18 Myalgia, other site (principal); D64.9 Anemia, unspecified; R10.12 Left upper quadrant pain
CPT/HCPCS: 99214

== ENCOUNTER 2024-04-22 09:51 | Outpatient (REF) | payer OTHER, SELFPAY ==
[2024-04-22 11:14] LABS: MANUAL DIFF FLAG NO
[2024-04-22 11:36] LABS: Basophils Absolute Auto 0.1 X10*3/uL (0.0-0.2); Basophils Percent Auto 0.7 % (0-2); Eosinophils Absolute Auto 0.1 X10*3/uL (0.0-0.4); Eosinophils Percent Auto 0.7 % (0-4); Hematocrit 37.6 % (37.0-47.0); Hemoglobin 12.6 g/dl (12.0-16.0); Imm Gran Abs Auto 0.02 X10*3/uL (0.00-0.03); Imm Gran Pct Auto 0.3 % (0.0-0.4); Lymphocytes Absolute Auto 2.5 X10*3/uL (1.2-4.9); Lymphocytes Percent Auto 35.1 % (20-40); Mean Corpuscular HGB Conc 33.5 g/dl (31.0-35.0); Mean Corpuscular Volume 92.6 fL (80.0-98.0); Monocytes Absolute Auto 0.6 X10*3/uL (0.1-1.2); Monocytes Percent Auto 8.1 % (2-11); Neutrophils Absolute Auto 3.9 x10*3/uL (2.0-8.3); Neutrophils Percent Auto 55.1 % (45-73); Platelet Count 291 X10*3/uL (160-400); Red Blood Count 4.06 X10*6/uL (4.20-5.50)
[2024-04-22 12:07] LABS: Alanine Aminotransferase 15 U/L (0-31); Albumin Level 4.2 g/dL (3.5-5.0); Alkaline Phosphatase 67 U/L (39-117); Anion Gap 10 (12-20); Aspartate Amino Transferase 19 U/L (5-31); Bilirubin Total 0.3 mg/dL (0.0-1.0); Blood Urea Nitrogen 13 mg/dL (9-16); C Reactive Protein < 0.10 mg/dL (< or = 0.50); Calcium 9.6 mg/dL (8.4-10.2); Carbon Dioxide 32 mmol/L (22-29); Chloride 105 mmol/L (96-108); Estimated Glomerular Filt Rate > 60; Glucose Random 94 mg/dL (60-115); Potassium 4.6 mmol/L (3.3-5.1); Sodium 142 mmol/L (135-145); Total Protein 8.2 g/dL (6.5-8.0)
[2024-04-22 12:22] LABS: Ferritin 34 ng/mL (10-250); Vitamin D 25-OH Total 23.9 ng/mL (>30)
[2024-04-22 12:32] LABS: Folate 9.7 ng/mL (> or = 4.0); Vitamin B12 264 pg/mL (200-900)
[2024-04-26 16:04] LABS: Zinc 82 mcg/dL (60-130)
[2024-04-26 20:33] LABS: Vitamin K1 627 pg/mL (130-1500)
[2024-04-27 16:08] LABS: Vitamin B6 10.8 ng/mL (2.1-21.7)
[2024-04-27 17:12] LABS: Nicotinamide <20 ng/mL (see note); Vit B3 - Nicotinic Acid <20 ng/mL (see note); Vitamin B5 (Pantothenic Acid) <=40 ng/mL (<275)
[2024-04-28 02:28] LABS: Beta-Gamma Tocopherol 1.8 mg/L (<=4.3)
[2024-04-29 11:34] LABS: Vitamin C 0.3 mg/dL (0.3-2.7)
[2024-04-29 13:24] LABS: Vitamin B1 10 nmol/L (8-30)
== END 2024-04-22 09:52 | disposition home or self-care (01) ==
LOC: HO.LAB 09:51
PROVIDERS: PCP Family Medicine; Visit Provider Internal Medicine Gastroenterology
DX: M79.18 Myalgia, other site (principal); D64.9 Anemia, unspecified; Z91.018 Allergy to other foods; K75.81 Nonalcoholic steatohepatitis (NASH); R10.12 Left upper quadrant pain
CPT/HCPCS: 36415; 80053; 82180; 82306; 82550; 82607; 82728; 82746; 84207; 84425; 84446; 84591; 84597; 84630; 85025; 86003; 86140; 99212

== ENCOUNTER 2024-05-04 12:20 | Outpatient (REF) | payer OTHER, SELFPAY ==
[2024-05-04 13:31] LABS: Hematocrit 35.7 % (37.0-47.0); Hemoglobin 11.9 g/dl (12.0-16.0); Mean Corpuscular HGB Conc 33.3 g/dl (31.0-35.0); Mean Corpuscular Hemoglobin 30.6 pg (27.0-33.0); Mean Corpuscular Volume 91.8 fL (80.0-98.0); Platelet Count 304 X10*3/uL (160-400); Red Blood Count 3.89 X10*6/uL (4.20-5.50); Red Cell Distribution Width 12.9 % (11.0-16.0); White Blood Count 7.4 X10*3/uL (4.8-10.8)
[2024-05-04 13:42] LABS: Estimated Average Glucose 100 mg/dL; Hemoglobin A1c % 5.1 % (<6.0)
[2024-05-04 14:03] LABS: Alanine Aminotransferase 14 U/L (0-31); Albumin Level 4.1 g/dL (3.5-5.0); Alkaline Phosphatase 67 U/L (39-117); Anion Gap 11 (12-20); Aspartate Amino Transferase 21 U/L (5-31); Bilirubin Direct 0.2 mg/dL (0.0-0.5); Bilirubin Total 0.5 mg/dL (0.0-1.0); Blood Urea Nitrogen 12 mg/dL (9-16); Calcium 9.4 mg/dL (8.4-10.2); Carbon Dioxide 30 mmol/L (22-29); Chloride 101 mmol/L (96-108); Cholesterol 259 mg/dL (<200); Estimated Glomerular Filt Rate > 60; Glucose Random 86 mg/dL (60-115); HDL Cholesterol 92 mg/dL (>40); LDL Cholesterol Calculated 150 mg/dL (<100); Potassium 3.9 mmol/L (3.3-5.1); Sodium 138 mmol/L (135-145); Total Protein 8.1 g/dL (6.5-8.0); Triglycerides 87 mg/dL (<150)
[2024-05-04 14:22] LABS: Free T4 (Free Thyroxine) 0.98 ng/dL (0.71-1.85); Thyroid Stimulating Hormone 1.18 uIU/mL (0.32-4.0); Vitamin D 25-OH Total 26.7 ng/mL (>30)
[2024-05-04 15:05] LABS: CT PCR NOT DETECTED (Not Detect.); NG PCR NOT DETECTED (Not Detect.)
[2024-05-05 07:59] LABS: Hepatitis A Antibody IgG Nonreactive (Nonreactive); ~Hepatitis A Antibody IgG 0.38 S/CO (0.00-0.99)
[2024-05-05 08:06] LABS: HBS Num1 3.08 mIU/mL (0-7.99); HBc Num1 0.11 S/CO (0.00-0.79); HBsAGNum1 0.32 S/CO (0.00-0.99); HIV AB/AG Nonreactive (Nonreactive); HIV Num 1 0.06 S/CO (0.00-0.99); Hepatitis B Core Antibody Nonreactive (Nonreactive); Hepatitis B Surface Antigen Negative (Negative); ~HepC Num1 0.15 S/CO (0.00-0.79); ~Hepatitis B Surface Antibody NONREACTIVE (Nonreactive); ~Hepatitis C Antibody Nonreactive (Nonreactive)
[2024-05-05 12:44] LABS: RPR Rapid Plasma Reagin NON-REACTIVE (NON-REACTIVE)
== END 2024-05-04 12:21 | disposition home or self-care (01) ==
LOC: HO.HHCL 12:20
PROVIDERS: Visit Provider Family Medicine
DX: Z00.00 Encounter for general adult medical examination without abnormal findings (principal); Z12.31 Encounter for screening mammogram for malignant neoplasm of breast; Z13.1 Encounter for screening for diabetes mellitus; F33.9 Major depressive disorder, recurrent, unspecified; E78.49 Other hyperlipidemia; G43.909 Migraine, unspecified, not intractable, without status migrainosus; K21.9 Gastro-esophageal reflux disease without esophagitis; R91.8 Other nonspecific abnormal finding of lung field; E04.1 Nontoxic single thyroid nodule; R31.29 Other microscopic hematuria; M79.7 Fibromyalgia; M54.50 Low back pain, unspecified; G89.29 Other chronic pain; M54.2 Cervicalgia; J45.30 Mild persistent asthma, uncomplicated; J30.9 Allergic rhinitis, unspecified; L81.1 Chloasma
CPT/HCPCS: 36415; 80048; 80061; 80076; 82306; 83036; 84439; 84443; 85027; 86592; 86704; 86706; 86708; 86803; 87340; 87389; 87491; 87591

== ENCOUNTER 2024-05-09 12:36 | Outpatient (REF) | payer OTHER, SELFPAY ==
--- NOTE | ~2024-05-09 | US_ITS ---
EXAMINATION: US THYROID CLINICAL INFORMATION: Thyroid nodules. COMPARISON: Ultrasound soft tissue head/neck thyroid dated 06/16/2023 and 04/04/2022. TECHNIQUE: Linear transducer grayscale and color Doppler examination with attention to the region of the thyroid. FINDINGS: SIZE: Measurements of the thyroid lobes and nodules are given in sagittal, anteroposterior and transverse dimensions respectively. Right Thyroid Lobe: 5.1 x 1.6 x 1.1 cm, volume 4.6 mL. Previously 5.0 x 1.3 x 1.5 cm, volume 5.1 mL. Parenchyma: The gland echotexture is homogeneous. Thyroid vascularity is increased. Left Thyroid Lobe: 5.3 x 1.5 x 1.8 cm, volume 7.5 mL. Previously 5.3 x 1.5 x 1.2 cm, volume 5.0 mL. Parenchyma: The gland echotexture is homogeneous. Thyroid vascularity is increased. Isthmus: 0.7 cm in maximum AP dimension. Previously 0.4 cm. Estimated total number of nodules greater than or equal to 1 cm: 3. Curve Saw Operator nodules are described as follows: 1. Location: Isthmus. Size: 1.1 x 1.0 x 1.1 cm, volume 0.63 mL. Previously: 1.7 x 0.9 x 1.2 cm, volume0.90 mL. Nodule characteristics: Composition: Solid (2). Echogenicity: Hypoechoic (2). Shape: Not taller than wide (0). Margins: Smooth (0). Echogenic Foci: None (0). ACR TI-RADS total points: 4 Previous: 4 ACR TI-RADS category: 4 Previous: 4 Significant change in size (>/= 20% in 2 dimensions and minimal increase of 2 mm or 50% or greater increase in volume): No Change in features: No Change in ACR TI-RADS risk category: No 2. Location: Isthmus. Size: 0.55 x 0.50 x 0.60 cm, volume 0.09 mL. Previously: Not seen on the previous study. Nodule characteristics: Composition: Solid (2). Echogenicity: Hypoechoic (2). Shape: Not taller than wide (0). Margins: Smooth (0). Echogenic Foci: None (0). ACR TI-RADS total points: 4 ACR TI-RADS category: 4 3. Location: Left inferior. Size: 1.7 x 1.5 x 1.8 cm, volume 2.4 mL. Previously: 1.9 x 1.3 x 1.8 cm, volume 2.3 mL. Nodule characteristics: Composition: Mixed cystic and solid (1). Echogenicity: Cannot be determined (1). Shape: Not taller than wide (0). Margins: Smooth (0). Echogenic Foci: None (0). ACR TI-RADS total points: 2 Previous: 2 ACR TI-RADS category: 2 Previous: 2 Significant change in size (>/= 20% in 2 dimensions and minimal increase of 2 mm or 50% or greater increase in volume): No Change in features: No Change in ACR TI-RADS risk category: No 4. Location: Left superior. Size: 1.4 x 1.2 x 1.0 cm, volume 0.82 mL. Previously: 1.4 x 0.80 x 0.90 cm, volume 0.50 mL. Nodule characteristics: Composition: Solid (2). Echogenicity: Isoechoic (1). Shape: Taller than wide (3). Margins: Smooth (0). Echogenic Foci: Punctate echogenic foci (3). ACR TI-RADS total points: 9 Previous: 4 ACR TI-RADS category: 5 Previous: 4 Significant change in size (>/= 20% in 2 dimensions and minimal increase of 2 mm or 50% or greater increase in volume): Yes Change in features: Yes Change in ACR TI-RADS risk category: Yes, increased from 4-5. NODES: No lymphadenopathy is seen in the tissue surrounding the thyroid gland. US/US thyroid IMPRESSION: Multinodular goiter with 3 nodules over 1 cm in size. The left superior nodule has increased in volume and has changed from category 4 to category 5. Biopsy is recommended. ACR TI-RADS RECOMMENDATION REFERENCE: Ultrasound-guided fine-needle aspiration, follow up ultrasound, no further followup. * TR1 (0 point) and TR2 (2 points): No FNA or followup * TR3 (3 points): FNA if more than or equal to 2.5 cm in maximum dimension, follow up ultrasound in 1, 3 and 5 years if 1.5 to 2.4 cm in maximum dimension. * TR4 (4-6 points): FNA if more than or equal to 1.5 cm in maximum dimension, follow up ultrasound in 1, 2, 3 and 5 years if 1 to 1.4 cm in maximum dimension. * TR5 (more than or equal to 7 points): FNA if more than or equal to 1 cm in maximum dimension, follow up ultrasound every year for 5 years if 0.5 to 0.9 cm in maximum dimension. * TR3, TR4 or TR5 nodules that are below the size threshold for follow up receive no followup. Electronically signed by: Dejuan Gorman MD 05/24/2024 11:22 AM EDT
== END 2024-05-09 12:37 | disposition home or self-care (01) ==
LOC: HO.HMGCX 12:36
PROVIDERS: PCP Family Medicine; Visit Provider Family Medicine
DX: E04.1 Nontoxic single thyroid nodule (principal)
CPT/HCPCS: 76536

== ENCOUNTER 2024-05-30 10:05 | Outpatient (AMB) | payer OTHER, SELFPAY ==
--- NOTE | 2024-05-30 10:06 | MHC.OFFVIS ---
Vital Signs 05/30/24 10:07 Height 4 ft 11 in Weight 126 lb 15.78 oz BMI 25.6 BP 112/74 Blood Pressure Location Rt brachial Position Sitting Pulse 54 Pulse Source Pulse Oximeter Intake Visit Reasons: US F/u-lvm Intake Note: Patient present today for thyroid nodule follow up visit. [employer] Required: No Accompanied by: Self / Same As Patient Allergies Iodinated Contrast Media [CONTRAST, IV] Allergy (Intermediate, Verified 05/30/24 10:12) HIVES iopromide [From ULTRAVIST] Allergy (Mild, Verified 05/30/24 10:12) HIVES ibuprofen [From MOTRIN] Adverse Reaction (Intermediate, Verified 05/30/24 10:12) NAUSEA & VOMITING Medication List - Last Reconciled 05/30/24 by Jaime Allen MD acetaminophen ER mg PO albuterol sulfate 90 mcg/actuation 2 puffs PO Q4-6H PRN atorvastatin 10 mg PO BEDTIME buspirone 5 mg PO TID cholecalciferol (vitamin D3) 50 mcg PO DAILY clonazepam 1 tab PO DAILY PRN cranberry extract 425 mg PO BID diclofenac sodium 1% 1 ea topical BID dicyclomine 10 mg PO TID diphenhydramine HCl (Allergy (diphenhydramine)) 50 mg (2 x 25 mg) PO DIRECTED docusate sodium 100 mg PO BID PRN escitalopram oxalate 10 mg PO DAILY estradiol (Vagifem) 10 mcg vaginal 2XW famotidine 40 mg PO BEDTIME fluticasone furoate 100 mcg/actuation (Arnuity Ellipta) 1 inh inhalation DAILY fluticasone propionate 110 mcg/actuation (Flovent HFA) 1 puff inhalation BID fluticasone propionate 50 mcg/actuation 1 spray intranasal DAILY gabapentin 400 mg PO TID ketotifen fumarate 0.025%(0.035%) drps ophthalmic (eye) lansoprazole 30 mg PO BID loratadine 10 mg PO DAILY nitrofurantoin macrocrystal 50 mg orally use after sexual activity; must administer with a meal/food prednisone 50 mg PO DIRECTED 1 day sodium,potassium,mag sulfates 17.5-3.13-1.6 gram (Suprep Bowel Prep Kit) DILUTE; drink 1/2 at 6-8 pm and half at 11 PM- 1AM tizanidine 2 mg PO TID tizanidine 2 mg PO BID PRN topiramate 25 mg PO DAILY PRN tramadol 50 mg PO BID PRN zolpidem 1 tab PO BEDTIME PRN HPI Comments Details: 58 -year-old female, today for follow-up visit, nontoxic multinodular goiter She denies cold or heat intolerance, weight loss or gain, diarrhea, constipation, insomnia, fatigue, dry skin, denies dyspnea, dysphonia, tremors, palpitations, irritability, anxiety. Family History: Has negative family history of thyroid disease. Patient had fine-needle aspiration of isthmic/left thyroid nodule that was benign follicular nodule cystic degeneration [place] category 2 on 07/08/2018. Repeat FNA of left upper pole left lower pole and isthmus nodule were benign cytology 04/09/2020 barium swallowing study Mild indentation of the posterior cervical esophageal wall from the metallic plate and screws for C6 and C7 ventral fusion but no obstruction is seen. The rest of the esophagus is unremarkable. No gastroesophageal reflux or hiatal hernia. Date of Service: 03/19/21 US THYROID Right Thyroid Lobe: 4.6 x 1.2 x 1.5 cm, volume 4.2 mL. Previously 4.6 x 1.1 x 1.3 cm, volume 3.6 mL. Parenchyma: The gland echotexture is homogeneous. Thyroid vascularity is normal. Left Thyroid Lobe: 4.8 x 1.2 x 1.4 cm, volume 4.2 mL. Previously 4.9 x 1.6 x 1.2 cm, volume 4.8 mL. Parenchyma: The gland echotexture is homogeneous. Thyroid vascularity is normal. Isthmus: 0.3 cm in maximum AP dimension. Previously 0.5 cm. Estimated total number of nodules greater than or equal to 1 cm: 2. Government Minister nodules are described as follows: 1. Location: Right lower pole. Size: 0.4 x 0.3 x 0.4 cm, volume 0.02 mL. Previously: 0.4 x 0.4 x 0.4 cm, volume 0.03 mL. Nodule characteristics: Composition: Solid/almost completely solid (2). Echogenicity: Hyperechoic (1). Shape: Not taller than wide (0). Margins: Smooth (0). Echogenic Foci: Peripheral calcifications (2). ACR TI-RADS total points: 5: ACR TI-RADS category: 4 Significant change in size (>/= 20% in 2 dimensions and minimal increase of 2 mm or 50% or greater increase in volume): Change in features: Change in ACR TI-RADS risk category: 2. Location: Left upper pole. Size: 1.0 x 0.8 x 0.8 cm, volume 0.36 mL. Previously: 1.0 x 1.0 x 0.8 cm, volume 0.38 mL. Nodule characteristics: Composition: Solid/almost completely solid (2). Echogenicity: Hypoechoic (2). Shape: Not taller than wide (0). Margins: Smooth (0). Echogenic Foci: None (0). ACR TI-RADS total points: 4 ACR TI-RADS category: 4 Significant change in size (>/= 20% in 2 dimensions and minimal increase of 2 mm or 50% or greater increase in volume): Change in features: Change in ACR TI-RADS risk category: 3. Location: Left mid pole. Size: 0.4 x 0.2 x 0.3 cm, volume 0.014 mL. Previously: 0.5 x 0.3 x 0.3 cm, volume 0.02 mL. Nodule characteristics: Composition: Solid/almost completely solid (2). Echogenicity: Hypoechoic (2). Shape: Not taller than wide (0). Margins: Smooth (0). Echogenic Foci: None (0). ACR TI-RADS total points: 4 ACR TI-RADS category: 4 Significant change in size (>/= 20% in 2 dimensions and minimal increase of 2 mm or 50% or greater increase in volume): Change in features: Change in ACR TI-RADS risk category: 4. Location: Left lower pole. Size: 1.4 x 0.9 x 1.2 cm, volume 0.78 mL. Previously: 1.1 x 1.3 x 1.2 cm, volume 0.9 mL. Nodule characteristics: Composition: Mixed cystic and solid (1). Echogenicity: Hyperechoic (1). Shape: Not taller than wide (0). Margins: Smooth (0). Echogenic Foci: None (0). ACR TI-RADS total points: 2 ACR TI-RADS category: 2 Significant change in size (>/= 20% in 2 dimensions and minimal increase of 2 mm or 50% or greater increase in volume): Change in features: Change in ACR TI-RADS risk category: 5. Location: Isthmus, lower pole. Size: 1.0 x 0.6 x 1.3 cm, volume 0.36 mL. Previously: 1.5 x 1.2 x 1.3 cm, volume 1.2 mL. Nodule characteristics: Composition: Mixed cystic and solid (1). Echogenicity: Hypoechoic (2). Shape: Not taller than wide (0). Margins: Smooth (0). Echogenic Foci: None (0). ACR TI-RADS total points: 3 ACR TI-RADS category: 3 Significant change in size (>/= 20% in 2 dimensions and minimal increase of 2 mm or 50% or greater increase in volume): Change in features: Change in ACR TI-RADS risk category: NODES: No lymphadenopathy is seen in the tissue surrounding the thyroid gland. 02/02/2020 TSH 1.12 mIU/mL Free T4 0.99 dL. Laboratory Tests 12/04/20 13:10 TSH 1.00 Free T4 0.85 Repeat thyroid ultrasound 06/16/2023 showed no change in the size of the nodules FINDINGS: SIZE: Measurements of the thyroid lobes and nodules are given in sagittal, anteroposterior and transverse dimensions respectively. Right Thyroid Lobe: 5.0 x 1.3 x 1.5 cm, volume 5.1 mL. Previously 4.9 x 1.4 x 1.2 cm, volume 4.3 mL. Parenchyma: The gland echotexture is homogeneous. Thyroid vascularity is increased. Left Thyroid Lobe: 5.3 x 1.5 x 1.2 cm, volume 5.0 mL. Previously 5.5 x 1.3 x 1.4 cm, volume 5.2 mL. Parenchyma: The gland echotexture is heterogeneous. Thyroid vascularity is increased. Isthmus: 0.4 cm in maximum AP dimension. Previously 0.4 cm. Estimated total number of nodules greater than or equal to 1 cm: 3. Government Minister nodules are described as follows: 1. Location: Lower pole isthmus. Size: 1.7 x 0.9 x 1.2 cm, volume 0.9 mL. Previously: 1.7 x 1.1 x 1.6 cm, volume 1.6 mL. Nodule characteristics: Composition: Solid/almost completely solid (2). Echogenicity: Hypoechoic (2). Shape: Not taller than wide (0). Margins: Smooth (0). Echogenic Foci: Comet-tail artifacts (0). ACR TI-RADS total points: 4 Previous: 4 ACR TI-RADS category: 4 Previous: 4 Significant change in size (>/= 20% in 2 dimensions and minimal increase of 2 mm or 50% or greater increase in volume): No Change in features: No Change in ACR TI-RADS risk category: No 2. Location: Right lower pole. Size: 0.4 x 0.3 x 0.4 cm, volume 0.02 mL. Previously: 0.3 x 0.4 x 0.4 cm, volume 0.03 mL. Nodule characteristics: Composition: Solid/almost completely solid (2). Echogenicity: Hyperechoic (1). Shape: Not taller than wide (0). Margins: Smooth (0). Echogenic Foci: Peripheral calcifications (2). ACR TI-RADS total points: 5 Previous: 5 ACR TI-RADS category: 4 Previous: 4 Significant change in size (>/= 20% in 2 dimensions and minimal increase of 2 mm or 50% or greater increase in volume): No Change in features: No Change in ACR TI-RADS risk category: No 3. Location: Left upper pole. Size: 1.4 x 0.8 x 0.9 cm, volume 0.5 mL. Previously: 1.4 x 0.7 x 0.9 cm, volume 0.5 mL. Nodule characteristics: Composition: Solid (2). Echogenicity: Hypoechoic (2). Shape: Not taller than wide (0). Margins: Smooth (0). Echogenic Foci: None (0). ACR TI-RADS total points: 4 Previous: 4 ACR TI-RADS category: 4 Previous: 4 Significant change in size (>/= 20% in 2 dimensions and minimal increase of 2 mm or 50% or greater increase in volume): No Change in features: No Change in ACR TI-RADS risk category: No 4. Location: Left mid pole. Size: 0.4 x 0.3 x 0.3 cm, volume 0.02 mL. Previously: 0.3 x 0.2 x 0.3 cm, volume 0.01 mL. Nodule characteristics: Composition: Solid (2). Echogenicity: Hypoechoic (2). Shape: Not taller than wide (0). Margins: Smooth (0). Echogenic Foci: None (0). ACR TI-RADS total points: 4 Previous: 4 ACR TI-RADS category: 4 Previous: 4 Significant change in size (>/= 20% in 2 dimensions and minimal increase of 2 mm or 50% or greater increase in volume): Yes Change in features: No Change in ACR TI-RADS risk category: No 5. Location: Left lower pole. Size: 1.9 x 1.3 x 1.8 cm, volume 2.3 mL. Previously: 1.6 x 1.1 x 1.7 cm, volume 1.6 mL. Nodule characteristics: Composition: Mixed cystic and solid (1). Echogenicity: Isoechoic (1). Shape: Not taller than wide (0). Margins: Smooth (0). Echogenic Foci: Comet-tail artifacts (0). ACR TI-RADS total points: 2 Previous: 2 ACR TI-RADS category: 2 Previous: 2 Significant change in size (>/= 20% in 2 dimensions and minimal increase of 2 mm or 50% or greater increase in volume): No Change in features: Currently more cystic-appearing. Change in ACR TI-RADS risk category: No NODES: No lymphadenopathy is seen in the tissue surrounding the thyroid gland. US/US thyroid IMPRESSION: Multiple bilateral thyroid nodules including 1.7 cm isthmus TI RADS 4 nodule for which fine-needle aspiration recommended if not previously performed. Continued sonographic follow-up if 1.4 cm left upper 05/09/2024 Thyroid US Multinodular goiter with 3 nodules over 1 cm in size. The left superior nodule has increased in volume and has changed from category 4 to category 5. Biopsy is recommended. She does complain of some dripping and clearing of the throat but no clear obstructive symptoms 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 Mother History of heart attack Social History Household Members: None Housing: Apartment Alcohol intake: never Patient Tobacco Use Status: Never used Tobacco Physical Exam Vital Signs: BMI result Body Mass Index 25.6 Const Other: Thyroid gland is normal size weighs by 15 g . There are no thyroid nodules palpated. There is no cervical adenopathy palpated Assessment & Plan Assessment & Plan (1) Non-toxic multinodular goiter: Code(s): E04.2 - Nontoxic multinodular goiter Category: Medical Plan: This is a 57-year-old female with a history of multinodular goiter status post FNA of an isthmus nodule in 2018 with benign cytology. Repeat FNA of left upper, left lower and isthmus nodule benign . She appears to be clinically and biochemically euthyroid. Thyroid ultrasound in 08/2023 showed no change in the size of the nodules. However, recent ultrasound showed the left upper pole nodule increased in size The plan is to have the patient follow up with Dr. Martin alcantar insurance adjuster joint out practice and is performing thyroid ultrasound to track the size of the nodule and see if it warrants biopsy in the left upper pole Coding Level of Care Code Est Pt Level 3 (40727) Diagnoses Non-toxic multinodular goiter E04.2
[2024-05-30 10:07] VITALS: BP 112/74; PULSE 54; BMI 25.6
== END 2024-05-30 10:30 | disposition home or self-care (01) ==
PROVIDERS: PCP Family Medicine; Visit Provider Internal Medicine Endocrinology, Diabetes & Metabolism
DX: E04.2 Nontoxic multinodular goiter (principal)
CPT/HCPCS: 99213

== ENCOUNTER → 2024-05-30 10:05 | Outpatient (BNVA) | payer OTHER, SELFPAY | PROVIDERS: PCP Family Medicine; Visit Provider Internal Medicine Endocrinology, Diabetes & Metabolism | DX: E04.2 Nontoxic multinodular goiter (principal) | CPT/HCPCS: 99212 ==

== ENCOUNTER 2024-06-14 09:23 | Outpatient (REF) | payer OTHER, SELFPAY | END 2024-06-14 09:24 | disposition home or self-care (01) | LOC: HO.CT 09:23 | PROVIDERS: PCP Family Medicine; Visit Provider Internal Medicine Gastroenterology | DX: Z13.89 Encounter for screening for other disorder (principal) ==

== ENCOUNTER 2024-06-22 09:35 | Outpatient (REF) | payer OTHER, SELFPAY ==
--- NOTE | ~2024-06-22 | MM_ITS ---
EXAMINATION: MM SCREENING DIGITAL BREAST TOMOSYNTHESIS, BILATERAL CLINICAL INFORMATION: Screening. Asymptomatic. COMPARISON: Mammography: Comparison is made with available priors TECHNIQUE: Digital breast mammography with tomosynthesis is performed in both the craniocaudal and mediolateral oblique views along with computer-aided detection (CAD). FINDINGS: There are scattered areas of fibroglandular density (ACR BI-RADS breast composition Category b). There are no significant masses, abnormal calcifications, or other abnormalities. MM/MM tomosynthesis screening BI IMPRESSION: No mammographic evidence of malignancy. ASSESSMENT: BI-RADS BI-RADS 1 - Negative RECOMMENDATION: Routine annual mammography screening. 1 year F/U This examination should not preclude the clinical evaluation of a suspicious palpable abnormality. This patient's information was entered into a reminder system with a target due date for their next mammogram. Electronically signed by: Mone Valerio DO 07/04/2024 05:57 PM EDT
== END 2024-06-22 09:36 | disposition home or self-care (01) ==
LOC: HO.MAMMO 09:35
PROVIDERS: PCP Family Medicine; Visit Provider Family Medicine
DX: Z12.31 Encounter for screening mammogram for malignant neoplasm of breast (principal)
CPT/HCPCS: 77063; 77067

== ENCOUNTER → 2024-06-22 10:00 | Outpatient (BNV) | payer OTHER, SELFPAY | PROVIDERS: PCP Family Medicine; Visit Provider Internal Medicine | DX: Z12.31 Encounter for screening mammogram for malignant neoplasm of breast (principal) | CPT/HCPCS: 77063; 77067 ==

== ENCOUNTER 2024-07-02 08:11 | Outpatient (REF) | payer OTHER, SELFPAY ==
--- NOTE | ~2024-07-02 | MR_ITS ---
EXAMINATION: MR LUMBAR SPINE WITHOUT CONTRAST CLINICAL INFORMATION: Worsening low back pain radiating into left lower extremity. COMPARISON: MRI dated November 04, 2023. TECHNIQUE: MRI of the lumbar spine was obtained using routine sequences without contrast. FINDINGS: Submitted for interpretation on August 26, 2024. Last rib-bearing vertebra labeled T12. Rudimentary ribs at L1. There is a levoconvex rotoscoliosis apex at L3-4 level. There is a focal hyperintense T1 and T2 with hypointense STIR signal lesion at S1. No bone marrow STIR signal abnormality. Multilevel disc desiccation. Grade 1 anterolisthesis L4-5 and to a lesser extent L3-4. 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 The conus medullaris ends at superior endplate of L2 with normal signal. T12-L1: No herniated disc. No neuroforamina stenosis. L1-2: No herniated disc. No neuroforamina stenosis. L2-3: Broad-based disc bulging. Facet joint hypertrophy. No central spinal canal or neuroforamina stenosis. L3-4: Broad-based disc bulging. Facet joint and ligamentum flavum hypertrophy. Reduced AP diameter of the thecal sac and the neural foramina likely encroaching the neural elements. L4-5: Broad-based disc bulging. Facet joint and ligamentum flavum hypertrophy. Reduced AP diameter of the thecal sac and the neural foramina likely encroaching the neural elements. L5-S1: Asymmetric disc bulging into the left foraminal resulting in left neuroforamina narrowing encroaching the exiting nerve roots. Facet joint and ligamentum flavum hypertrophy. No prevertebral compartment hematoma, mass or fluid collection. Hyperintense T2 lesion in the posterior lower pole left kidney. MR/MR lumbar spine wo con IMPRESSION: Multilevel spondylosis resulting in grade 1 anterolisthesis L4-5 encroaching the neural elements. Subtle grade 1 anterolisthesis L3-4 encroaching the neural elements. Instability at L4-5 cannot be excluded. Probable intraosseous hemangioma, S1. Probable cyst, left kidney. Electronically signed by: Neeraj Nieves MD 08/26/2024 07:43 AM EST
== END 2024-07-02 08:12 | disposition home or self-care (01) ==
LOC: HO.MRI 08:11
PROVIDERS: PCP Family Medicine; Visit Provider Family Medicine
DX: M54.42 Lumbago with sciatica, left side (principal); G89.29 Other chronic pain
CPT/HCPCS: 72148

== ENCOUNTER → 2024-07-02 08:11 | Outpatient (BNV) | payer OTHER, SELFPAY | PROVIDERS: PCP Family Medicine; Visit Provider Radiology Diagnostic Radiology | DX: M54.50 Low back pain, unspecified (principal) | CPT/HCPCS: 72148 ==

== ENCOUNTER 2024-07-06 10:18 | Outpatient (REF) | payer OTHER, SELFPAY ==
--- NOTE | 2024-07-06 10:21 | EMG_ITS ---
Chief complaint: Lower back pain, left-sided radiating to the hip, cramps in left lower leg, denies numbness Reason for referral: Evaluate for radiculopathy Referred by: Dr. Verduzco Procedure done: Left lower extremity NCS/EMG, with comparison to right Precautions and/or limitations: None The limb temperature was monitored continuously and remained between 32-36 degrees C during the performance of the NCS. Nerve Conduction Studies Anti Sensory Summary Table ?Stim Site NR Onset (ms) Norm Onset (ms) Peak (ms) Norm Peak (ms) O-P Amp (?V) Norm O-P Amp Site1 Site2 Delta-0 (ms) Dist (cm) Jose Angel (m/s) Norm Jose Angel (m/s) Left Sup Peron Anti Sensory (Ankle) Lateral Leg ? 1.3 1.6 <4.4 15.5 >5.0 Lateral Leg Ankle 1.3 14.0 108 Left Sural Anti Sensory (Lat Mall) Calf ? 2.9 3.7 <4.0 27.1 >5.0 Calf Lat Mall 2.9 14.0 48 Right Sural Anti Sensory (Lat Mall) Calf ? 3.0 3.7 <4.0 21.2 >5.0 Calf Lat Mall 3.0 14.0 47 Motor Summary Table ?Stim Site NR Onset (ms) Norm Onset (ms) O-P Amp (mV) Norm O-P Amp iAmp (mV) Amp (1st) (%) Site1 Site2 Delta-0 (ms) Dist (cm) Jose Angel (m/s) Norm Jose Angel (m/s) Left Peroneal Motor (Ext Dig Brev) Ankle ? 5.0 <4.0 3.3 >2.5 4.3 100.0 Ankle Ext Dig Brev 5.0 0.0 B Fib ? 10.1 3.2 4.1 97.0 B Fib Ankle 5.1 27.5 54 >40 Poplt ? 10.6 3.0 3.8 90.9 Poplt B Fib 0.5 4.0 80 >40 Right Peroneal Motor (Ext Dig Brev) Ankle ? 3.8 <4.0 4.7 >2.5 5.8 100.0 Ankle Ext Dig Brev 3.8 0.0 B Fib ? 9.1 4.6 5.6 97.9 B Fib Ankle 5.3 27.5 52 >40 Poplt ? 9.8 4.6 5.7 97.9 Poplt B Fib 0.7 5.0 71 >40 Left Tibial Motor (Abd Perkins Brev) Ankle ? 3.2 <5 9.4 >2.5 13.5 100.0 Ankle Abd Perkins Brev 3.2 0.0 Knee ? 10.0 8.7 12.0 92.6 Knee Ankle 6.8 35.0 51 >40 EMG ?Side Muscle Nerve Root Ins Act Fibs Psw Amp Dur Poly Recrt Int Pat Comment Left AbdHallucis MedPlantar S1-2 Nml Nml Nml Nml Nml 0 Nml Complete Left AntTibialis Dp Br Peron L4-5 Nml Nml Nml Nml Nml 0 Nml Complete Left MedGastroc Tibial S1-2 Nml Nml Nml Nml Nml 0 Nml Complete Left VastusMed Femoral L2-4 Nml Nml Nml Nml Nml 0 Nml Complete Left Peroneus Long Sup Br Peron L5-S1 Nml Nml Nml Nml Nml 0 Nml Complete FINDINGS: Left peroneal nerve showed prolonged distal latency, normal amplitude and normal conduction velocity. All other nerves tested were within normal. Concentric needle EMG was performed in selected muscles of the left lower extremity and lumbar paraspinals. Study did not reveal signs of electric abnormalities as shown in the table above. IMPRESSION: 1. This is an abnormal study. 2. 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 3. There is no electrodiagnostic evidence for tibial neuropathy, lumbosacral plexopathy, lumbar radiculopathy, or peripheral neuropathy. Thank you for your kind referral. Kierra Negron MD, BARBARA Board Certified, [place] [employer] and Rehabilitation (ABPMR) Board Certified, [place] Board of Electrodiagnostic Medicine (ABEM) [place] [id number] [facility]
== END 2024-07-06 10:19 | disposition home or self-care (01) ==
LOC: HO.NEURO 10:18
PROVIDERS: PCP Family Medicine; Visit Provider Family Medicine
DX: M54.42 Lumbago with sciatica, left side (principal); G89.29 Other chronic pain
CPT/HCPCS: 95886; 95909

== ENCOUNTER → 2024-07-06 10:21 | Outpatient (BNV) | payer OTHER, SELFPAY | PROVIDERS: PCP Family Medicine; Visit Provider Physical Medicine & Rehabilitation | DX: G57.83 Other specified mononeuropathies of bilateral lower limbs (principal) | CPT/HCPCS: 95886; 95909 ==

== ENCOUNTER 2024-07-13 11:00 | Outpatient (RCR) | payer OTHER, SELFPAY | END 2024-07-13 11:46 | disposition home or self-care (01) | LOC: HO.PTCHIC 11:00 | PROVIDERS: PCP Family Medicine; Visit Provider Family Medicine | DX: M54.2 Cervicalgia (principal); G89.29 Other chronic pain | CPT/HCPCS: 97110; 97161 ==

== ENCOUNTER 2024-07-22 16:42 | Outpatient (REF) | payer OTHER, SELFPAY | END 2024-07-22 16:43 | disposition home or self-care (01) | LOC: HO.LNP 16:42 | PROVIDERS: Visit Provider Family Medicine | DX: N39.0 Urinary tract infection, site not specified (principal) | CPT/HCPCS: 87086; 87088; 87186 ==

== ENCOUNTER 2024-07-25 08:21 | Outpatient (REF) | payer OTHER, SELFPAY | END 2024-07-25 08:22 | disposition home or self-care (01) | LOC: HO.CT 08:21 | PROVIDERS: PCP Family Medicine; Visit Provider Internal Medicine Gastroenterology | DX: Z13.89 Encounter for screening for other disorder (principal) ==

== ENCOUNTER 2024-07-26 13:38 | Outpatient (REF) | payer OTHER, SELFPAY ==
--- NOTE | ~2024-07-26 | CT_ITS ---
EXAMINATION: CT ANGIOGRAM ABDOMEN CLINICAL INFORMATION: Left upper quadrant pain COMPARISON: Ultrasound 04/28/2023, CT abdomen and pelvis 11/18/2021 TECHNIQUE: Multiple axial images were obtained through the abdomen following the administration of 80 mL Omnipaque 350 intravenous contrast. Images were reviewed on a dedicated 3-D workstation. This CT examination was performed using dose optimization techniques as appropriate, variously including the following: *Automated exposure control *Adjustment of mA and/or kV according to patient size (this includes techniques or standardized protocols for targeted exams where dose is matched to indication/reason for exam; i.e. extremities or head) *Use of iterative reconstruction technique DLP: 110 mGy-cm FINDINGS: Lung bases: Minimal linear atelectasis within the right middle lobe. No pleural effusion. Imaged heart is unremarkable. Vascular: The abdominal aorta is normal in caliber. There is minimal eccentric calcification. There is no evidence of dissection or other acute aortic syndrome. The iliac bifurcation is unremarkable. The common iliac arteries have minimal eccentric calcific disease without luminal narrowing. The visualized portions of the right external and internal iliac arteries are normal in caliber. Celiac artery is patent. Superior mesenteric artery is patent. The inferior mesenteric artery is patent. There are 2 right renal arteries and a single left renal artery. Renal arteries are well-opacified and normal in caliber. There is an unremarkable appearance of the portal mesenteric venous system for an arterial phase of contrast. Unremarkable appearance of the inferior vena cava and renal veins. LIVER, GALLBLADDER, AND BILIARY TREE: Liver is normal in size and overall attenuation. There is a 9 mm hypoattenuating structure within the inferior margin of the left hepatic lobe (image 22, series 5) and there is a similar appearing 6 mm hypoattenuating structure within the subcapsular aspect of segment 4A (image 11, series 5). These could represent simple cysts. No other hepatic lesions are identified. There is no intra or extra hepatic duct dilation. The gallbladder is surgically absent. PANCREAS: Unremarkable. No duct dilation. SPLEEN: Heterogeneous enhancement secondary to arterial phase of contrast, otherwise unremarkable. ADRENAL GLANDS AND KIDNEYS: The adrenal glands are unremarkable. At the anterior aspect of the upper pole of the right kidney there is a 9 mm cyst which would not require routine radiographic follow-up. An additional 1 cm cyst is present at the lower pole of the left kidney. No renal calculi. No hydronephrosis. No hydroureter. Gastrointestinal: The distal esophagus and stomach are unremarkable. The imaged small large bowel are nondilated and no bowel wall inflammatory changes are seen. Incidentally there is a small duodenal diverticulum at the third portion of the duodenum. LYMPH NODES: Normal. BONES: No acute or aggressive bony. CT/CT angio abdomen IMPRESSION: Patent abdominal arterial vasculature. No definite etiology for patient's current presentation is identified. Fleischner guidelines were followed. Electronically signed by: Brent Haynes MD 07/26/2024 04:02 PM DARIO
[2024-07-26] MEDS: iohexoL 350 MG/ML 100 ML INFUS..BTL IV (14:12)
[2024-07-27 11:15] LABS: Creatinine POC 0.7 mg/dL (0.5-1.4); GFR POC > 60
== END 2024-07-26 13:39 | disposition home or self-care (01) ==
LOC: HO.CT 13:38
PROVIDERS: PCP Family Medicine; Visit Provider Internal Medicine Gastroenterology
DX: R10.12 Left upper quadrant pain (principal)
CPT/HCPCS: 74175; 82565; Q9967

== ENCOUNTER 2024-08-24 08:17 | Day surgery (SDC) | payer OTHER, SELFPAY ==
[2024-08-22 14:40] VITALS: BMI 25.6
--- NOTE | 2024-08-23 09:16 | P.CONAN_ITS ---
HPI - Anesthesia Eval Consult details Narrative: 58yo F for Upper Endoscopy and Colonoscopy [facility] Active Problems Active Problems: All Active Problems Anemia (Acute) Myofascial muscle pain (Acute) Sacroiliac joint dysfunction of left side (Acute) Sacroiliac joint dysfunction of right side (Acute) Post-menopausal atrophic vaginitis (Acute) Postprandial abdominal pain in left upper quadrant (Acute) GERD (gastroesophageal reflux disease) (Acute) Vaginal atrophy (Acute) Recurrent urinary tract infection (Acute) Microhematuria (Acute) LUQ abdominal pain (Acute) Cervical radiculopathy (Acute) Chest discomfort (Acute) Hyperlipidemia (Acute) Non-toxic multinodular goiter (Acute) UTI (urinary tract infection) (Acute) Hematuria (Acute) Fibromyalgia (Acute) Epigastric abdominal pain (Acute) Food allergy (Acute) Arthropathy of lumbar facet joint (Acute) Spondylosis of lumbosacral spine without myelopathy (Acute) Postlaminectomy syndrome, cervical (Acute) Past Medical History Medical History Hyperlipidemia Non-toxic multinodular goiter Fibromyalgia Arthritis History of fibromyalgia History of anxiety History of headache Depression Lab test positive for detection of COVID-19 virus Asthma GERD (gastroesophageal reflux disease) Arthropathy of lumbar facet joint Spondylosis of lumbosacral spine without myelopathy Postlaminectomy syndrome, cervical Family History Family History Father No problems noted. Mother History of heart attack Family history of problems with anesthesia: No Surgical History Surgical History History of biopsy Hx laparoscopic cholecystectomy Hx of hysterectomy Hx of cervical discectomy History of esophagogastroduodenoscopy (EGD) History of colonoscopy History of Problems with Anesthesia: No Social History Social History Household Members: None Housing: Apartment Alcohol intake: never Patient Tobacco Use Status: Never used Tobacco Meds Allergies Allergy/AdvReac Type Severity Reaction Status Date / Time Iodinated Contrast Media Allergy Intermediate HIVES Verified 05/30/24 10:12 [CONTRAST, IV] iopromide [From ULTRAVIST] Allergy Intermediate HIVES Verified 08/22/24 14:45 ibuprofen [From MOTRIN] AdvReac Intermediate NAUSEA & Verified 05/30/24 10:12 VOMITING Home Medications ?Medication ?Instructions ?Recorded ?Confirmed ?Last Taken ?Type tramadol 50 mg tablet 50 mg PO BID PRN Pain 07/19/20 08/22/24 Unknown History albuterol sulfate 90 mcg/actuation 2 puff PO Q4-6H PRN Shortness Of 09/04/20 08/22/24 Unknown History aerosol inhaler Breath clonazepam 1 mg tablet 1 tab PO DAILY PRN Anxiety 09/04/20 08/22/24 Unknown History zolpidem 10 mg tablet 1 tab PO BEDTIME PRN Insomnia 09/04/20 08/22/24 Unknown History atorvastatin 10 mg tablet 10 mg PO BEDTIME 07/02/21 08/22/24 Unknown History buspirone 5 mg tablet 5 mg PO TID anxiety 07/02/21 08/22/24 Unknown History topiramate 25 mg tablet 25 mg PO DAILY 04/09/22 08/22/24 Unknown History docusate sodium 100 mg capsule 100 mg PO BID PRN Constipation 06/06/22 08/22/24 Unknown History fluticasone propionate 110 1 puff inhalation BID 06/06/22 07/31/23 Unknown History mcg/actuation HFA aerosol inhaler (Flovent HFA) loratadine 10 mg tablet 10 mg PO DAILY 06/06/22 08/22/24 Unknown History escitalopram oxalate 10 mg tablet 10 mg PO DAILY 12/05/22 08/22/24 Unknown History famotidine 40 mg tablet 40 mg PO BEDTIME 12/05/22 08/22/24 Unknown History diclofenac sodium 1 % topical gel 1 ea topical BID 06/26/23 08/22/24 Unknown History fluticasone propionate 50 1 spray intranasal DAILY 06/26/23 08/22/24 Unknown History mcg/actuation nasal spray,suspension gabapentin 400 mg capsule 400 mg PO TID 06/26/23 08/22/24 Unknown History tizanidine 2 mg tablet 2 mg PO TID 06/26/23 07/31/23 Unknown History acetaminophen 650 mg 650 mg PO Q6H PRN Pain 08/28/23 08/22/24 Unknown History tablet,extended release fluticasone furoate 100 1 inh inhalation DAILY 10/08/23 08/22/24 Unknown History mcg/actuation blister powder for inhalation (Arnuity Ellipta) ketotifen fumarate 0.025 % (0.035 1 drp ophthalmic (eye) DAILY 04/22/24 08/22/24 Unknown History %) eye drops cholecalciferol (vitamin D3) 50 50 mcg PO DAILY 05/30/24 08/22/24 Unknown History mcg (2,000 unit) capsule Exam Height,Weight and Vital Signs: Height 4 ft 11 in Weight 57.606 kg Assessment and Plan Assessment Anesthesia Assessment: Chart Reviewed Final Anesthetic Review Family History of Problems with Anesthesia: No History of Problems with Anesthesia: No
[2024-08-24 09:29] VITALS: BMI 25.4
--- NOTE | 2024-08-24 09:33 | MHC.SHP ---
Pre-Procedural Eval Section A - 24 Hr Update-Section A only Date of Service: 08/24/24 Section B - Complete if H&P > 30 days Chief Complaint: Left upper quadrant pain,anemia, Relevant Family History (Specify if Yes): No Relevant Social History: None Present Medications: see Short Stay Collaborative assessment Medical History: Significant History ( Hyperlipidemia Non-toxic multinodular goiter Fibromyalgia Arthritis History of fibromyalgia History of anxiety History of headache Depression Lab test positive for detection of COVID-19 virus Asthma GERD (gastroesophageal reflux disease) Arthropathy of lumbar facet joint Spondylosis of lumbosacral ) History of Previous Operations: Relevant previous surgery/procedure and date(s) (History of biopsy Hx laparoscopic cholecystectomy Hx of hysterectomy Hx of cervical discectomy History of esophagogastroduodenoscopy (EGD) History of colonoscopy) Allergies: Allergies Allergy/AdvReac Type Severity Reaction Status Date / Time Iodinated Contrast Media Allergy Intermediate HIVES Verified 08/24/24 09:24 [CONTRAST, IV] iopromide [From ULTRAVIST] Allergy Intermediate HIVES Verified 08/24/24 09:24 ibuprofen [From MOTRIN] AdvReac Intermediate NAUSEA & Verified 08/24/24 09:24 VOMITING Review of Systems Sugical H&P ROS: Negative: Constitution, Cardiovascular, Respiratory, Neurological, Psychiatric, Hem-Onc, Allergic/Immunologic, Gastrointestinal, Genitourinary, Musculoskeletal, Integumentary, Endocrine and Eyes/Ears/Nose/Throat Exam Surgical H&P Exam: Normal: HEENT, Normal: Heart, Normal: Lungs, Normal: Extremities, Normal: Abdomen, Normal: Skin and Normal: Neurological Plan Diagnosis/Plan: Unchanged I have reviewed the history and physical and performed a pertinent physical examination on my patient. No changes have occurred unless specified. Time Spent With Patient Time: Total time managing care of this patient today ____ minutes.
[2024-08-24 10:02] VITALS: BP 110/78; PULSE 82; RESP 15; TEMP 37.1; O2SAT 100
[2024-08-24] MEDS: Lactated Ringers 1,000 ML 100 ML IVCONT (10:04)
--- NOTE | 2024-08-24 10:40 | P.CONAN_ITS ---
[facility] Active Problems Active Problems: All Active Problems Anemia (Acute) Myofascial muscle pain (Acute) Sacroiliac joint dysfunction of left side (Acute) Sacroiliac joint dysfunction of right side (Acute) Post-menopausal atrophic vaginitis (Acute) Postprandial abdominal pain in left upper quadrant (Acute) GERD (gastroesophageal reflux disease) (Acute) Vaginal atrophy (Acute) Recurrent urinary tract infection (Acute) Microhematuria (Acute) LUQ abdominal pain (Acute) Cervical radiculopathy (Acute) Chest discomfort (Acute) Hyperlipidemia (Acute) Non-toxic multinodular goiter (Acute) UTI (urinary tract infection) (Acute) Hematuria (Acute) Fibromyalgia (Acute) Epigastric abdominal pain (Acute) Food allergy (Acute) Arthropathy of lumbar facet joint (Acute) Spondylosis of lumbosacral spine without myelopathy (Acute) Postlaminectomy syndrome, cervical (Acute) Past Medical History Medical History Hyperlipidemia Non-toxic multinodular goiter Fibromyalgia Arthritis History of fibromyalgia History of anxiety History of headache Depression Lab test positive for detection of COVID-19 virus Asthma GERD (gastroesophageal reflux disease) Arthropathy of lumbar facet joint Spondylosis of lumbosacral spine without myelopathy Postlaminectomy syndrome, cervical Functional capacity: independent ambulation Patient : No Family History Family History Father No problems noted. Mother History of heart attack Family history of problems with anesthesia: No Surgical History Surgical History History of biopsy Hx laparoscopic cholecystectomy Hx of hysterectomy Hx of cervical discectomy History of esophagogastroduodenoscopy (EGD) History of colonoscopy History of Problems with Anesthesia: No Social History Social History Household Members: None Housing: Apartment Alcohol intake: never Patient Tobacco Use Status: Never used Tobacco Use of substances other than those prescribed or required for medical reasons: No Are you DNR?: No Advance Directives: No Advance Directives Information Provided: Yes Meds Allergies Allergy/AdvReac Type Severity Reaction Status Date / Time Iodinated Contrast Media Allergy Intermediate HIVES Verified 08/24/24 09:24 [CONTRAST, IV] iopromide [From ULTRAVIST] Allergy Intermediate HIVES Verified 08/24/24 09:24 ibuprofen [From MOTRIN] AdvReac Intermediate NAUSEA & Verified 08/24/24 09:24 VOMITING Active Medications: Current Medications Albuterol Sulfate (Albuterol Sulfate (0.083%) 2.5 Mg/3 Ml Vial.Neb) 2.5 mg INHALE ONCE PRN PRN Reason: Shortness of Breath/Wheezing Lactated Ringer's (Lr) 1,000 mls @ 100 mls/hr IVCONT .Q10H [place] Last Admin: 08/24/24 10:04 Dose: 100 mls/hr Home Medications ?Medication ?Instructions ?Recorded ?Confirmed ?Last Taken ?Type albuterol sulfate 90 mcg/actuation 2 puff PO Q4-6H PRN Shortness Of 09/04/20 08/24/24 Unknown History aerosol inhaler Breath clonazepam 1 mg tablet 1 tab PO DAILY PRN Anxiety 09/04/20 08/24/24 Unknown History zolpidem 10 mg tablet 1 tab PO BEDTIME PRN Insomnia 09/04/20 08/24/24 Unknown History atorvastatin 10 mg tablet 10 mg PO BEDTIME 07/02/21 08/24/24 Unknown History buspirone 5 mg tablet 5 mg PO TID anxiety 07/02/21 08/24/24 Unknown History docusate sodium 100 mg capsule 100 mg PO BID PRN Constipation 06/06/22 08/24/24 Unknown History fluticasone propionate 110 1 puff inhalation BID 06/06/22 08/24/24 Unknown History mcg/actuation HFA aerosol inhaler (Flovent HFA) loratadine 10 mg tablet 10 mg PO DAILY 06/06/22 08/24/24 Unknown History escitalopram oxalate 10 mg tablet 10 mg PO DAILY 12/05/22 08/24/24 Unknown History diclofenac sodium 1 % topical gel 1 ea topical BID 06/26/23 08/24/24 Unknown History fluticasone propionate 50 1 spray intranasal DAILY 06/26/23 08/24/24 Unknown History mcg/actuation nasal spray,suspension tizanidine 2 mg tablet 2 mg PO TID 06/26/23 08/24/24 Unknown History acetaminophen 650 mg 650 mg PO Q6H PRN Pain 08/28/23 08/24/24 Unknown History tablet,extended release fluticasone furoate 100 1 inh inhalation DAILY 10/08/23 08/24/24 Unknown History mcg/actuation blister powder for inhalation (Arnuity Ellipta) cholecalciferol (vitamin D3) 50 50 mcg PO DAILY 05/30/24 08/24/24 Unknown History mcg (2,000 unit) capsule Exam Height,Weight and Vital Signs: Height 4 ft 11 in Weight 57.153 kg Last Vital Signs Temp 98.8 F 08/24/24 10:02 Pulse 82 08/24/24 10:02 Resp 15 08/24/24 10:02 BP 110/78 08/24/24 10:02 Pulse Ox 100 08/24/24 10:02 O2 Del Method Room Air 08/24/24 10:02 Airway Mallampati Class: II TM Dist: >3cm Neck ROM: Full Heart: RRR Lungs: CTA Assessment and Plan Assessment Anesthesia Assessment: Anesthesia Plan Discussed and Chart Reviewed Final Anesthetic Review Family History of Problems with Anesthesia: No History of Problems with Anesthesia: No NPO: Yes ASA Class: II Final Preanesthetic Review: Meds/Allgs Chart Reviewed, Consent Obtained/Reviewed and Anes Risks/Benef Reviewed Patient Risk: Low Procedure Risk: Low Anesthetic Plan Anesthetic Plan: MAC: Disposition: Standard PACU
--- NOTE | 2024-08-24 10:49 | HO.OPN-COLON ---
Colonoscopy Operative Note Operative Note Date of Service: 08/24/24 Narrative: Operative Information Procedure Description: EGD, Colonoscopy Indication: anemia Anesthesia: MAC FLEXIBLE TRANSORAL UPPER GASTROINTESTINAL ENDOSCOPY AND COLONOSCOPY PROCEDURE NOTE UPPER ENDOSCOPY Consent: Indications for the procedure and potential complications of bleeding, perforation, reaction to medications and missed diagnosis were discussed with the patient and informed consent was obtained. Instrument: Olympus GIF H 190 J mid size upper endoscope Monitoring: Vital signs and clinical assessment, continuous EKG monitoring, Pulse oximetry, Carbon Dioxide monitoring and blood pressure monitoring were done throughout the procedure. Procedure: The patient was placed in the left lateral decubitis position and pre-procedure medications were administered and a bite block was placed. The endoscope was inserted into the mouth and advanced under direct vision to the third part of duodenum. A careful inspection was made as the upper endoscope was withdrawn including a retroflexed examination of the proximal stomach; Findings and interventions are described below. Findings: Larynx:normal Esophagus: GE junction at 36 cm, diaphragm hiatus at 36 cm, mild esophagitis, bx taken from GEJ and distal esophagus Stomach: Mild erythema. Biopsies were obtained. Grade 2 flap valve on retroflexed examination of the cardia. Duodenum: Normal bulb and descending duodenum, Intervention: Biopsies as noted above, COLONOSCOPY Instrument: Olympus variable stiffness pediatric scope 190L Colonoscopy Monitoring: Vital signs and clinical assessment, continuous EKG monitoring, Pulse oximetry, Carbon Dioxide monitoring and blood pressure monitoring were done throughout the procedure. Colon withdrawal time was 14 minutes. Procedure: The patient was placed in the left lateral decubitis position and pre-procedure medications were administered. After a digital rectal examination of the ano-rectum, the video colonoscope was inserted into the rectum and advanced through the colon to the cecum/TI. The colonoscope was slowly withdrawn in a retrograde panoramic fashion and the colon mucosa was carefully examined including a retroflexed view of the rectum. Findings and interventions are described below. Procedure Difficulty:moderate Findings: Terminal Ileum-normal, bx taken Random colon bx taken with cold forceps Cecum: 6-9 mm flat polyps x 2 injected with eleview and removed with cold snare Retroflexion right colon- semi pedunculated polyp 12-13 mm removed with cold snare Ascending Colon: normal Transverse Colon -normal Descending Colon:normal Sigmoid Colon: normal Rectum: Retroflexion with small to medium internal hemorrhoids, grade I Anorectum - normal Colon preparation: [place] Bowel Preparation Scale Right colon; 3 Transverse colon: 2 Left colon; 2 (0 = Unprepared colon segment with mucosa not seen due to solid stool that cannot be cleared. 1 = Portion of mucosa of the colon segment seen, but other areas of the colon segment not well seen due to staining, residual stool and/or opaque liquid. 2 = Minor amount of residual staining, small fragments of stool and/or opaque liquid, but mucosa of colon segment seen well. 3 = Entire mucosa of colon segment seen well with no residual staining, small fragments of stool or opaque liquid) Impression and Post Procedure Diagnosis: Endoscopy Findings: esophagitis Colonoscopy Findings: colon polyps x 3 internal hemorrhoids Plan: Await Pathology results Repeat Colonoscopy in 1-2 years due to polyps or earlier if clinically indicated High fiber diet leaflet avoid straining at stool, epsom salts and sitz bath, anusol supps or cream Above findings were reviewed with the patient and relevant handouts were provided if indicated.
[2024-08-24 10:57] VITALS: BP 105/75; PULSE 87; RESP 16; TEMP 36.6; O2SAT 98
[2024-08-24 11:12] VITALS: BP 111/70; PULSE 79; RESP 16; TEMP 36.6; O2SAT 99
--- NOTE | 2024-08-24 11:27 | HO.POSTANES ---
Post Anesthesia Evaluation Post Anesthesia Evaluation Date of Service: 08/24/24 Vital Signs: Vital Signs Temp Pulse Resp BP Pulse Ox O2 Del Method 08/24/24 11:12 98 F 79 16 111/70 99 Room Air 08/24/24 10:57 98 F 87 16 105/75 98 Room Air 08/24/24 10:02 98.8 F 82 15 110/78 100 Room Air Anesthesia: Monitored Mental Status: Awake Pain Control: Satisfactory Nausea/Vomiting: None Hydration: Adequate Anesthesia-Related Issues: No Anes. Related Issues
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
== END 2024-08-24 12:00 | disposition home or self-care (01) ==
PROVIDERS: PCP Family Medicine; Visit Provider Internal Medicine Gastroenterology
PROC: (CPT 45385; principal; 2024-08-24 10:10)
DX: D64.9 Anemia, unspecified (principal); D12.0 Benign neoplasm of cecum; D12.2 Benign neoplasm of ascending colon; K64.0 First degree hemorrhoids; K52.9 Noninfective gastroenteritis and colitis, unspecified; R10.12 Left upper quadrant pain; K20.80 Other esophagitis without bleeding; K21.9 Gastro-esophageal reflux disease without esophagitis; K44.9 Diaphragmatic hernia without obstruction or gangrene; E78.5 Hyperlipidemia, unspecified; E04.2 Nontoxic multinodular goiter; J45.909 Unspecified asthma, uncomplicated; M79.7 Fibromyalgia; M19.90 Unspecified osteoarthritis, unspecified site; M46.96 Unspecified inflammatory spondylopathy, lumbar region; M96.1 Postlaminectomy syndrome, not elsewhere classified; F32.A Depression, unspecified; F41.9 Anxiety disorder, unspecified; Z91.041 Radiographic dye allergy status; Z88.6 Allergy status to analgesic agent; Z98.890 Other specified postprocedural states; Z90.49 Acquired absence of other specified parts of digestive tract; Z79.899 Other long term (current) drug therapy
CPT/HCPCS: 45385; 45380; 43239; 45381; 88305; 88313; 88342; J2003; J2704

== ENCOUNTER → 2024-08-24 08:17 | Outpatient (BNV) | payer OTHER, SELFPAY | PROVIDERS: PCP Family Medicine; Visit Provider Internal Medicine Gastroenterology | DX: D64.9 Anemia, unspecified (principal); K20.90 Esophagitis, unspecified without bleeding; K63.5 Polyp of colon; D12.2 Benign neoplasm of ascending colon; K64.0 First degree hemorrhoids | CPT/HCPCS: 43239; 45381; 45385 ==

== ENCOUNTER 2024-08-26 08:50 | Outpatient (AMB) | payer OTHER, SELFPAY ==
--- OUTSIDE RECORDS SUMMARY | 2024-08-26 08:55 | XMS_ITS | Data Portability ---
Author Organization [employer] [facility] Address [address] [place] [id number] Care Team Providers Care Rag Sorter And Cutter Name Role Phone [facility] Referring Provider [phone] Assessment Encounter Date Assessment Date Assessment LastModified by Organization Details LastModified Time 03/18/2023 03/18/2023 I provided real -time medical direction via phone for this encounter, and was available for additional phone based assistance as needed. I have reviewed and agree with the Assessment and Plan as documented by the Director Business Systems. Patient given the opportunity to ask questions. Advised if develops CP/severe SOB/turning blue/uncontrolle d pain in flank/ abd or uncontrolled n/v/d or black/bloody emesis or stool/ AMS/ syncope/ hi fever unresponsive to APAP to call 911- advised close f/u with pcp and urology -verbalized understanding of instructions to the medic [email or web address] Not available 03/18/2023 12:04:35 Plan of Treatment Reminders Order Date Submit Date Provider Last Modified By Organization Details Last Modified Time Details Appointments None recorded. Lab culture, urine 2022 023 [place] [facility], [facility] [place], [address], 3 15:12:44 urinalysis, dipstick 2022 023 [email or web address] 0 [facility], [address] [place] [address], [phone], 3 17:08:56 rapid SARS CoV 2 Ag, QL IA, respiratory specimen 2022 023 [email or web address] 0 [facility], [address] [place] [address], [phone], 3 12:05:04 rapid flu (A+B) 2022 023 [email or web address] 0 [facility], [address] [place] [address], [address], 3 12:05:04 rapid SARS CoV 2 Ag, QL IA, respiratory specimen 2023 024 [email or web address], [address] [place] [address], [address], 4 18:19:53 rapid flu (A+B) 2023 024 [email or web address], [address] [place] [address], [address], 4 18:19:51 Referral None recorded. Procedures None recorded. Surgeries None recorded. Imaging None recorded. Medication Orders Bactrim DS 800 mg-160 mg tablet 2022 023 [email or web address] 0 Not available 3 11:58:51 Bactrim DS 800 mg-160 mg tablet 2022 023 [id number], [address] [place], [address], 3 12:01:26 Valtrex 1 gram tablet 2023 024 [id number], [address] [place], [address], 4 18:10:29 Patient TargetsNo targets recorded. Patient InstructionsNo instructions recorded. Reason for Referral None Reported. Results Created Date Observation Date Name Description Value Unit Range Abnormal Flag Note LastModifiedBy Organization Detail LastModifiedTime 03/18/2003/18/2023 URINE CULTU RE specimen description URINE Not Available [facility] [address], [place], [address], 03/20/2023 15:12:44 03/18/20 23 03/18/2023 URINE CULTU RE special requests NONE Not Available [facility] [address] [place], [address], 03/20/2023 15:12:44 03/18/20 23 03/20/2023 URINE CULTU RE culture abnormal >100, 000 COL/M L ESCHE MOISES A COLI This isola te was ident ified using Maldi -TOF syste m These AST resul ts were perfo rmed on the Micro scan ID and AST syste m Not Available [facility] [address] [place], [address], 03/20/2023 15:12:44 03/18/20 23 03/20/2023 URINE CULTU RE report status FINAL 2022 Not Available [facility] [address] [place], [address], 03/20/2023 15:12:44 03/18/20 23 03/20/2023 URINE CULTU RE organism ORGAN ISM >100, 000 COL/M L ESCHE MOISES A COLI This isola te was ident ified using Maldi -TOF syste m These AST resul ts were perfo rmed on the Micro scan ID and AST syste m Not Available [facility] [address] [place], [address], 03/20/2023 15:12:44 03/18/20 23 03/20/2023 URINE CULTU RE method METHOD MIN. INHIB. CONC. (MCG/M L) Not Available [facility] [address] [place], [address], 03/20/2023 15:12:44 03/18/20 23 03/20/2023 URINE CULTU RE amoxicillin/ clavulanic acid AMOXIC ILLIN/ CLAVUL AN SUSCEP TIBLE susceptib le Not Available [facility] [address] [place], [address], 03/20/2023 15:12:44 03/18/20 23 03/20/2023 URINE CULTU RE ampicillin AMPICI LLIN SUSCEP TIBLE susceptib le Not Available [facility] [address] [place], [address], 03/20/2023 15:12:44 03/18/20 23 03/20/2023 URINE CULTU RE ampicillin/s ulbactam AMPICI LLIN/S ULBACT AM SUSCEP TIBLE susceptib le Not Available [facility] [address] [place], [address], 03/20/2023 15:12:44 03/18/20 23 03/20/2023 URINE CULTU RE cefazolin CEFAZO RAQUEL SUSCEP TIBLE susceptib le Not Available [facility] [address] [place], [address], 03/20/2023 15:12:44 03/18/20 23 03/20/2023 URINE CULTU RE cefepime CEFEPI ME SUSCEP TIBLE susceptib le Not Available [facility] [address] [place], [address], 03/20/2023 15:12:44 03/18/20 23 03/20/2023 URINE CULTU RE ceftriaxone CEFTRI AXONE SUSCEP TIBLE susceptib le Not Available [facility] [address] [place], [address], 03/20/2023 15:12:44 03/18/20 23 03/20/2023 URINE CULTU RE ciprofloxaci n CIPROF LOXACI N SUSCEP TIBLE susceptib le Not Available [facility] [address] [place], [address], 03/20/2023 15:12:44 03/18/20 23 03/20/2023 URINE CULTU RE ertapenem ERTAPE NEM SUSCEP TIBLE susceptib le Not Available [facility] [address] [place], [address], 03/20/2023 15:12:44 03/18/20 23 03/20/2023 URINE CULTU RE gentamicin GENTAM ICIN SUSCEP TIBLE susceptib le Not Available [facility] [address] [place], [address], 03/20/2023 15:12:44 03/18/20 23 03/20/2023 URINE CULTU RE levofloxacin LEVOFL OXACIN SUSCEP TIBLE susceptib le Not Available [facility] [address] [place], [address], 03/20/2023 15:12:44 03/18/20 23 03/20/2023 URINE CULTU RE meropenem MEROPE NEM SUSCEP TIBLE susceptib le Not Available [facility] [address] [place], [address], 03/20/2023 15:12:44 03/18/20 23 03/20/2023 URINE CULTU RE nitrofuranto in NITROF URANTO IN SUSCEP TIBLE susceptib le Not Available [facility] [address] [place], [address], 03/20/2023 15:12:44 03/18/20 23 03/20/2023 URINE CULTU RE piperacillin /tazobactam PIPERA CILLIN /TAZOB AC SUSCEP TIBLE susceptib le Not Available [facility] [address] [place], [address], 03/20/2023 15:12:44 03/18/20 23 03/20/2023 URINE CULTU RE tetracycline TETRAC YCLINE SUSCEP TIBLE susceptib le Not Available [facility] [address] [place], [address], 03/20/2023 15:12:44 03/18/20 23 03/20/2023 URINE CULTU RE trimeth/sulf amethox TRIMET H/SULF AMETHO X SUSCEP TIBLE susceptib le Not Available [facility] [address] [place], [address], 03/20/2023 15:12:44 03/18/20 23 03/18/2023 urina lysis , dipst ick Leukocytes 3+ Not Available Main - [address], [address], 03/18/2023 12:05:18 03/18/20 23 03/18/2023 urina lysis , dipst ick Nitrite negati ve Not Available [facility] [address] [place] [address], [address], 03/18/2023 12:05:18 03/18/20 23 03/18/2023 urina lysis , dipst ick Urobilinogen neg Not Available [facility] - [facility] [address] [place] [address], [address], 03/18/2023 12:05:18 03/18/20 23 03/18/2023 urina lysis , dipst ick Protein trace Not Available [facility] - [facility] [address] [place] [address], [address], 03/18/2023 12:05:18 03/18/20 23 03/18/2023 urina lysis , dipst ick pH 6 Not Available [facility] - [facility] [address] [place] [address], [address], 03/18/2023 12:05:18 03/18/20 23 03/18/2023 urina lysis , dipst ick Blood 4+ Not Available [facility] - [facility] [address] [place] [address], [address], 03/18/2023 12:05:18 03/18/20 23 03/18/2023 urina lysis , dipst ick Specific [place] 1.025 Not Available [facility] - [facility] [address] [place] [address], [address], 03/18/2023 12:05:18 03/18/20 23 03/18/2023 urina lysis , dipst ick Ketone neg Not Available [facility] - [facility] [address] [place] [address], [address], 03/18/2023 12:05:18 03/18/20 23 03/18/2023 urina lysis , dipst ick Bilirubin trace Not Available [facility] - [facility] [address] [place] [address], [address], 03/18/2023 12:05:18 03/18/20 23 03/18/2023 urina lysis , dipst ick Glucose neg Not Available [facility] - [facility] [address] [place] [address], [address], 03/18/2023 12:05:18 03/18/20 23 03/18/2023 urina lysis , dipst ick Appearance clear Not Available [facility] [address] [place] [address], [address], 03/18/2023 12:05:18 03/18/20 23 03/18/2023 urina lysis , dipst ick Color light yellow Not Available [facility] [address] [place] [address], [address], 03/18/2023 12:05:18 03/18/20 23 03/18/2023 rapid flu (A+B) Flu negati ve Not Available [facility] [address] [place] [address], [address], 03/18/2023 12:04:44 03/18/20 23 03/18/2023 rapid SARS CoV 2 Ag, QL IA, respi rator y speci men rapid SARS CoV 2 Ag, QL IA, respiratory specimen negati ve Not Available [facility] [address] [place] [address], [address], 03/18/2023 12:04:39 11/03/19 24 11/03/2023 rapid flu (A+B) Flu negati ve Not Available [facility] [address] [place] [address], [address], 11/03/2023 18:19:38 11/03/19 24 11/03/2023 rapid SARS CoV 2 Ag, QL IA, respi rator y speci men rapid SARS CoV 2 Ag, QL IA, respiratory specimen negati ve Not Available [facility] [address] [place] [address], [address], 11/03/2023 18:19:30 Result Notes None recorded. Medical [...] Not available Not available Not available 03/18/2023 [id number] 2003 SNOMED Kristyn Paredes MD [address] [facility],[address], [place], [address], [employer] 3 11:50:26 Medications Name Sig Start Date [...] Address Organization Details Last Updated DateTime 03/18/2023 30780.53 g Sonal Guthrie [address] [place] [address],[address], [place], [address], [place] [facility] [employer] [facility] 03/18/2023 17:03:15 Date Recorded Heart rate Body height Oxygen saturation Oxygen saturation in Arterial blood by Pulse oximetry Body weight Body temperature Respiratory rate Systolic blood pressure Diastolic blood pressure Provider Name and Address Organization Details Last Updated DateTime 4 67 /min 149.86 cm 96 % 96 % 37228.0 4 g 98.5 [degF] 18 /min 106 [...] Diagnosis/Indication Diagnosis SNOMED-CT Code Diagnosis ICD10 Code [id number] Kristyn Paredes MD [facility] - [address] [address] 03/18/2023 11:44:55 03/19/2023 10:13:17 Viral upper respiratory tract infection 318447542 J06.9 Urinary symptoms 2020198 08 R39.9 10032 GAEL FIELDS MD [address] [phone] 11/03/2023 18:02:26 11/04/2023 12:39:09 Herpes labialis 3989037 B00.1 Health Concerns Section Related Observation LastModified by Organization Detai ls LastModified Time None Recorded Concern Status LastModified by Organization Details LastModified Time None Recorded Advance Directives Directive None Recorded Payers Encounter Date Sequence Insurance Name Policy Number Policy Mccollum Covered Member ID Mccollum Member ID Guarantor Name 03/18/2023 1 [facility] [employer] - DOS ON OR AFTER 2022 - DUAL ELIGIBLE - RESIDENTIAL OPTIONS AND ONE CARE (MEDICARE REPLACEMENT/ADV ANTAGE - HMO) Miryam Fan [id number] Miryam Fan 11/03/[address] [facility] ALL[employer] - DOS ON OR AFTER 2022 - DUAL ELIGIBLE - RESIDENTIAL OPTIONS AND ONE CARE (MEDICARE REPLACEMENT/ADV ANTAGE - HMO) Miryam Meng [id number] Miryam Meng Notes Date Note Type Note [...] .................. .................. .................. .................. .................. .................. ............... Director Business Systems Note From Courtney Gomez: Community Director Business Systems Damaso Gomez [facility] 57 y[facility] C/O sinus [...] urine appeared abnormal. Urine dip in [facility]. [facility]; pt was given 800 mg bactrim PO, and urine sample was brought to [facility] laboratory for culture. She was instructed [...] was given ( no prior visits in [place] ) but has had bactrim in the past without problems. She reports Temp 101 this am took 1 gram Tylenol- no afebrile Kristyn Paredes MD [address] [facility],[address], [place], [address], [facility] 03/18/2023 17:09:19 11/03/2023 text/html HPI: Hx GERD, Anxiety, cervical deg. disc disease. .................. .................. .................. .................. .................. .................. .................. ............... [facility] Nurse Triage Notes (Fiona Nieves): Comments: HPI reviewed. No additional information needed to process .................. .................. .................. .................. .................. .................. .................. ............... Director Business Systems Note From Rubi Hoffman: Sent to a [...] covid test: neg; Rapid flu test: neg; [facility] consulted and pt advised it seems lesions are cold sores. [facility] script to pt's pharmacy. Pt advised she should drink lots of fluid, take Tylenol for pain, and pt should start seeing improvement in 48hrs. Red flags discussed. Pt has no further questions. .................. .................. .................. .................. .................. .................. .................. ............... Disposition: Catrachito FIELDS MD [address] [facility],[address], [place], [address], [facility] 11/03/2023 22:21:59 OBGyn Episode No OBEpisode recorded.
--- NOTE | 2024-08-26 09:01 | MHC.OFFVIS ---
Vital Signs 08/26/24 09:03 Height 4 ft 11 in Weight 123 lb 7.342 oz BMI 24.9 BP 97/62 Blood Pressure Location Lt brachial Position Sitting Pulse 76 Intake Visit Reasons: f/u Labs Intake Note: Miryam presents in the office as a follow up to her blood work. CC: She states that she had her procedure 2 days ago and blood work in July. 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 Follow up liver u/s with similar findings of RUQ. She had been c/o ongoing epigastric/LUQ pain, which is like burning, worse with food geovanni fried foods, variable intensity. she also had nausea but no vomiting. appetite is variable, weight is up per her stools are normal as long as she takes laxative for last 4 yrs she had EGD and colonoscopy at [facility] 2 yrs ago and she said she was told normal depression is variable sister with myeloma, brother from OD. she had lap leann 12/2018 referred for genetics assessment to [facility] but couldn;t afford testing she also came to see Jaqueline amin for LUQ pain whilst I was away and given bentyl LUQ improved with bentyl constipation better with bisacodyl seeing pain clinic for back pain, awaiting injections she lost her brother and sister to chronic disease --made her go thru depression --has therapist, no SI OTHER TESTS: = EGD 04/2019--gastritis and reflux damage to esophagus US 05/2020--renal cysts, no masses, F2 liver elastography h pylori breath--neg 06/2020 EGD: 2019---possible gastroparesis and gastritis Path: mild gastritis GES 02/2021-- fast emptying at 2 hrs 14% only RAST--negative US duplex: 08/06--possible MALs due to elevated velocity CT chest 08/06- small pulm nodules (w/o contrast) CTA- neg for MALS EGD: 08/06- mild esophagitis and mild gastritis =path: mild gastric and GEJ inflammation Aubrey- EGD- 09/06- Endoscopy Findings: esophagitis Colonoscopy Findings: colon polyps x 3 internal hemorrhoids polyp in right side, pedunculated INTERIM: mostly urine issues with hematuria, seeing urology bowels are normal no nausea or vomiting appetite is good EXAM: GENERAL: The patient is well developed and nontoxic. VITAL SIGNS:see workflow HEENT: Nonicteric sclerae, PERRLA, EOMI. Oropharynx clear. Moist mucous membranes. Conjunctivae appear well perfused. No thyroid mass. CHEST: Chest wall is nontender. HEART: Regular rate and rhythm without murmurs. LUNGS: Clear to auscultation bilaterally. ABDOMEN: Soft, positive bowel sounds, nontender, no organomegaly.no flank tenderness SKIN: No rash, no excessive bruising, petechiae, or purpura. NEUROLOGIC: Cranial nerves II-XII intact without motor/sensory deficit. Psych: normal affect Assessments 1/ Polyps- path pending PLAN: 1/ repeat colon in about 1-2 yrs Note PATH: TA and SS polyps, focal colitis active esophagitis PFSH Medical History Hyperlipidemia Non-toxic multinodular goiter Fibromyalgia Arthritis History of fibromyalgia History of anxiety History of headache Depression Lab test positive for detection of COVID-19 virus Asthma GERD (gastroesophageal reflux disease) Arthropathy of 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 Mother History of heart attack Social History Household Members: None Housing: Apartment Alcohol intake: never Patient Tobacco Use Status: Never used Tobacco Physical Exam Vital Signs: Last Vital Signs Pulse 76 08/26/24 09:03 BP 97/62 08/26/24 09:03 BMI result Body Mass Index 24.9 Assessment & Plan Assessment & Plan (1) Epigastric abdominal pain: Code(s): R10.13 - Epigastric pain Category: Medical Plan: see above Coding Level of Care Code Est Pt Level 3 (40708) Diagnoses Epigastric abdominal pain R10.13
[2024-08-26 09:03] VITALS: BP 97/62; PULSE 76; BMI 24.9
== END 2024-08-26 09:35 | disposition home or self-care (01) ==
PROVIDERS: PCP Family Medicine; Visit Provider Internal Medicine Gastroenterology
DX: R10.13 Epigastric pain (principal)
CPT/HCPCS: 99213

== ENCOUNTER → 2024-08-26 08:50 | Outpatient (BNVA) | payer OTHER, SELFPAY | PROVIDERS: PCP Family Medicine; Visit Provider Internal Medicine Gastroenterology | DX: R10.13 Epigastric pain (principal) | CPT/HCPCS: 99212 ==

== ENCOUNTER 2024-08-29 09:51 | Outpatient (AMB) | payer OTHER, SELFPAY ==
--- OUTSIDE RECORDS SUMMARY | 2024-08-29 09:54 | XMS_ITS | Data Portability ---
Author Organization [employer] [facility] [place] [facility] Address [address] [place] [id number] Care Team Providers Care Transportation Museum Helper Name Role Phone [facility] PRIMARY [facility] Referring Provider [phone] Assessment Encounter Date Assessment Date Assessment LastModified by Organization Details LastModified Time 03/18/2023 03/18/2023 I provided real -time medical direction via phone for this encounter, and was available for additional phone based assistance as needed. I have reviewed and agree with the Assessment and Plan as documented by the Block Machine Operator. Patient given the opportunity to ask questions. Advised if develops CP/severe SOB/turning blue/uncontrolle d pain in flank/ abd or uncontrolled n/v/d or black/bloody emesis or stool/ AMS/ syncope/ hi fever unresponsive to APAP to call 911- advised close f/u with pcp and urology -verbalized understanding of instructions to the medic [email or web address] Not available 03/18/2023 12:04:35 Plan of Treatment Reminders Order Date Submit Date Provider Last Modified By Organization Details Last Modified Time Details Appointments None recorded. Lab culture, urine 2022 023 CLONTARF [facility], [facility] [place], [address], 3 15:12:44 urinalysis, dipstick 2022 023 [email or web address] 0 [facility], [address] [place] [address], [phone], 3 17:08:56 rapid SARS CoV 2 Ag, QL IA, respiratory specimen 2022 023 [email or web address] 0 [facility], [address] [place] [address], [phone], 3 12:05:04 rapid flu (A+B) 2022 023 [email or web address] 0 [facility], [address] [place] [address], [address], 3 12:05:04 rapid SARS CoV 2 Ag, QL IA, respiratory specimen 2023 024 [email or web address] [facility], [address] [place] [address], [address], 4 18:19:53 rapid flu (A+B) 2023 024 [email or web address] [facility], [address] [place] [address], [phone], 4 18:19:51 Referral None recorded. Procedures None recorded. Surgeries None recorded. Imaging None recorded. Medication Orders Bactrim DS 800 mg-160 mg tablet 2022 023 [email or web address] 0 Not available 3 11:58:51 Bactrim DS 800 mg-160 mg tablet 2022 023 [facility][id number], [address] [place], [address], 3 12:01:26 Valtrex 1 gram tablet 2023 024 [facility] #[id number], [address] [place], [address], 4 18:10:29 Patient TargetsNo targets recorded. Patient InstructionsNo instructions recorded. Reason for Referral None Reported. Results Created Date Observation Date Name Description Value Unit Range Abnormal Flag Note LastModifiedBy Organization Detail LastModifiedTime 03/18/2003/18/2023 URINE CULTU RE specimen description URINE Not Available [facility] [address], [place], [address], 03/20/2023 15:12:44 03/18/20 23 03/18/2023 URINE CULTU RE special requests NONE Not Available [facility] [address] [place], [address], 03/20/2023 15:12:44 03/18/20 23 03/20/2023 URINE CULTU RE culture abnormal >100, 000 COL/M L ESCHE MOISES A COLI This isola te was ident ified using Maldi -TOF syste m These AST resul ts were perfo rmed on the Micro scan ID and AST syste m Not Available [facility] [address] [place], [address], 03/20/2023 15:12:44 03/18/20 23 03/20/2023 URINE CULTU RE report status FINAL 2022 Not Available [facility] [address] [place], [address], 03/20/2023 15:12:44 03/18/20 23 03/20/2023 URINE CULTU RE organism ORGAN ISM >100, 000 COL/M L ESCHE MOISES A COLI This isola te was ident ified using Maldi -TOF syste m These AST resul ts were perfo rmed on the Micro scan ID and AST syste m Not Available [facility] [address] [place], [address], 03/20/2023 15:12:44 03/18/20 23 03/20/2023 URINE CULTU RE method METHOD MIN. INHIB. CONC. (MCG/M L) Not Available [facility] [address] [place], [address], 03/20/2023 15:12:44 03/18/20 23 03/20/2023 URINE CULTU RE amoxicillin/ clavulanic acid AMOXIC ILLIN/ CLAVUL AN SUSCEP TIBLE susceptib le Not Available [facility] [address] [place], [address], 03/20/2023 15:12:44 03/18/20 23 03/20/2023 URINE CULTU RE ampicillin AMPICI LLIN SUSCEP TIBLE susceptib le Not Available [facility] [address] [place], [address], 03/20/2023 15:12:44 03/18/20 23 03/20/2023 URINE CULTU RE ampicillin/s ulbactam AMPICI LLIN/S ULBACT AM SUSCEP TIBLE susceptib le Not Available [facility] [address] [place], [address], 03/20/2023 15:12:44 03/18/20 23 03/20/2023 URINE CULTU RE cefazolin CEFAZO RAQUEL SUSCEP TIBLE susceptib le Not Available [facility] [address] [place], [address], 03/20/2023 15:12:44 03/18/20 23 03/20/2023 URINE CULTU RE cefepime CEFEPI ME SUSCEP TIBLE susceptib le Not Available [facility] [address] [place], [address], 03/20/2023 15:12:44 03/18/20 23 03/20/2023 URINE CULTU RE ceftriaxone CEFTRI AXONE SUSCEP TIBLE susceptib le Not Available [facility] [address] [place], [address], 03/20/2023 15:12:44 03/18/20 23 03/20/2023 URINE CULTU RE ciprofloxaci n CIPROF LOXACI N SUSCEP TIBLE susceptib le Not Available [facility] [address] [place], [address], 03/20/2023 15:12:44 03/18/20 23 03/20/2023 URINE CULTU RE ertapenem ERTAPE NEM SUSCEP TIBLE susceptib le Not Available [facility] [address] [place], [address], 03/20/2023 15:12:44 03/18/20 23 03/20/2023 URINE CULTU RE gentamicin GENTAM ICIN SUSCEP TIBLE susceptib le Not Available [facility] [address] [place], [address], 03/20/2023 15:12:44 03/18/20 23 03/20/2023 URINE CULTU RE levofloxacin LEVOFL OXACIN SUSCEP TIBLE susceptib le Not Available [facility] [address] [place], [address], 03/20/2023 15:12:44 03/18/20 23 03/20/2023 URINE CULTU RE meropenem MEROPE NEM SUSCEP TIBLE susceptib le Not Available [facility] [address] [place], [address], 03/20/2023 15:12:44 03/18/20 23 03/20/2023 URINE CULTU RE nitrofuranto in NITROF URANTO IN SUSCEP TIBLE susceptib le Not Available [facility] [address] [place], [address], 03/20/2023 15:12:44 03/18/20 23 03/20/2023 URINE CULTU RE piperacillin /tazobactam PIPERA CILLIN /TAZOB AC SUSCEP TIBLE susceptib le Not Available [facility] [address] [place], [address], 03/20/2023 15:12:44 03/18/20 23 03/20/2023 URINE CULTU RE tetracycline TETRAC YCLINE SUSCEP TIBLE susceptib le Not Available [facility] [address] [place], [address], 03/20/2023 15:12:44 03/18/20 23 03/20/2023 URINE CULTU RE trimeth/sulf amethox TRIMET H/SULF AMETHO X SUSCEP TIBLE susceptib le Not Available [facility] [address] [place], [address], 03/20/2023 15:12:44 03/18/20 23 03/18/2023 urina lysis , dipst ick Leukocytes 3+ Not Available Main - [address], [address], 03/18/2023 12:05:18 03/18/20 23 03/18/2023 urina lysis , dipst ick Nitrite negati ve Not Available [facility] [address] [place] [address], [address], 03/18/2023 12:05:18 03/18/20 23 03/18/2023 urina lysis , dipst ick Urobilinogen neg Not Available [facility] [address] [place] [address], [address], 03/18/2023 12:05:18 03/18/20 23 03/18/2023 urina lysis , dipst ick Protein trace Not Available [facility] [address] [place] [address], [address], 03/18/2023 12:05:18 03/18/20 23 03/18/2023 urina lysis , dipst ick pH 6 Not Available [facility] [address] [place] [address], [address], 03/18/2023 12:05:18 03/18/20 23 03/18/2023 urina lysis , dipst ick Blood 4+ Not Available [facility] [address] [place] [address], [address], 03/18/2023 12:05:18 03/18/20 23 03/18/2023 urina lysis , dipst ick Specific [place] 1.025 Not Available [facility] [address] [place] [address], [address], 03/18/2023 12:05:18 03/18/20 23 03/18/2023 urina lysis , dipst ick Ketone neg Not Available [facility] [address] [place] [address], [address], 03/18/2023 12:05:18 03/18/20 23 03/18/2023 urina lysis , dipst ick Bilirubin trace Not Available [facility] - [facility] [address] [place] [address], [address], 03/18/2023 12:05:18 03/18/20 23 03/18/2023 urina lysis , dipst ick Glucose neg Not Available Main - [facility] [address] [place] [address], [address], 03/18/2023 12:05:18 03/18/20 23 03/18/2023 urina lysis , dipst ick Appearance clear Not Available [facility] [address] [place] [address], [address], 03/18/2023 12:05:18 03/18/20 23 03/18/2023 urina lysis , dipst ick Color light yellow Not Available [facility] [address] [place] [address], [address], 03/18/2023 12:05:18 03/18/20 23 03/18/2023 rapid flu (A+B) Flu negati ve Not Available [facility] [address] [place] [address], [address], 03/18/2023 12:04:44 03/18/20 23 03/18/2023 rapid SARS CoV 2 Ag, QL IA, respi rator y speci men rapid SARS CoV 2 Ag, QL IA, respiratory specimen negati ve Not Available [facility] [address] [place] [address], [address], 03/18/2023 12:04:39 11/03/19 24 11/03/2023 rapid flu (A+B) Flu negati ve Not Available [facility] [address] [place] [address], [address], 11/03/2023 18:19:38 11/03/19 24 11/03/2023 rapid SARS CoV 2 Ag, QL IA, respi rator y speci men rapid SARS CoV 2 Ag, QL IA, respiratory specimen negati ve Not Available [facility] [address] [place] [address], [address], 11/03/2023 18:19:30 Result Notes None recorded. Medical [...] Not available Not available Not available 03/18/2023 [id number] 2003 SNOMED Kristyn Paredes MD [address] [facility],[address], [place], [address], [employer], [employer] 3 11:50:26 Medications Name Sig Start Date [...] Address Organization Details Last Updated DateTime 03/18/2023 29962.53 g Sonal Guthrie [address] [place] [address],[address], [place], [address], [place] [employer] [facility] 03/18/2023 17:03:15 Date Recorded Heart rate Body height Oxygen saturation Oxygen saturation in Arterial blood by Pulse oximetry Body weight Body temperature Respiratory rate Systolic blood pressure Diastolic blood pressure Provider Name and Address Organization Details Last Updated DateTime 4 67 /min 149.86 cm 96 % 96 % 41796.0 4 g 98.5 [degF] 18 /min 106 [...] Diagnosis/Indication Diagnosis SNOMED-CT Code Diagnosis ICD10 Code [id number] Kristyn Paredes MD [facility] - [address] [phone] 03/18/2023 11:44:55 03/19/2023 10:13:17 Viral upper respiratory tract infection 105818422 J06.9 Urinary symptoms 9046076 08 R39.9 [id number] GAEL FIELDS MD [address] [address] 11/03/2023 18:02:26 11/04/2023 12:39:09 Herpes labialis [id number] B00.1 Health Concerns Section Related Observation LastModified by Organization Detai ls LastModified Time None Recorded Concern Status LastModified by Organization Details LastModified Time None Recorded Advance Directives Directive None Recorded Payers Encounter Date Sequence Insurance Name Policy Number Policy Mccollum Covered Member ID Mccollum Member ID Guarantor Name 03/18/2023 1 [facility] [employer] - DOS ON OR AFTER 2022 - DUAL ELIGIBLE - CARE HOME OPTIONS AND ONE CARE (MEDICARE REPLACEMENT/ADV ANTAGE - HMO) Miryam Fan [id number] Miryam Fan 11/03/2023 1 [facility] [employer] - DOS ON OR AFTER 2022 - DUAL ELIGIBLE - CARE HOME OPTIONS AND ONE CARE (MEDICARE REPLACEMENT/ADV ANTAGE - HMO) Miryam Meng [id number] Miryam Meng Notes Date Note Type Note [...] .................. .................. .................. .................. .................. .................. ............... Block Machine Operator Note From Courtney Gomez: Community Block Machine Operator Damaso Gomez CCA1 dispatched to a [facility] for a 57 yof C/O sinus pain/pressure. [...] urine appeared abnormal. Urine dip in insted. [facility] consulted; pt was given 800 mg bactrim PO, and urine sample was brought to [facility] laboratory for culture. She was instructed [...] was given ( no prior visits in [place] ) but has had bactrim in the past without problems. She reports Temp 101 this am took 1 gram Tylenol- no afebrile Kristyn Paredes MD [address] [facility],[address], [place], [address], [employer] 03/18/2023 17:09:19 11/03/2023 text/html HPI: Hx GERD, Anxiety, cervical deg. disc disease. .................. .................. .................. .................. .................. .................. .................. ............... [facility] Nurse Triage Notes (Fiona Nieves): Comments: HPI reviewed. No additional information needed to process .................. .................. .................. .................. .................. .................. .................. ............... Block Machine Operator Note From Rubi Hoffman: Sent to a [...] covid test: neg; Rapid flu test: neg; [facility] consulted and pt advised it seems lesions are cold sores. [facility] sends script to pt's pharmacy. Pt advised she should drink lots of fluid, take Tylenol for pain, and pt should start seeing improvement in 48hrs. Red flags discussed. Pt has no further questions. .................. .................. .................. .................. .................. .................. .................. ............... Disposition: Catrachito FIELDS MD [address] [facility],[address], [place], [address], [employer] 11/03/2023 22:21:59 OBGyn Episode No OBEpisode recorded.
--- NOTE | 2024-08-29 10:05 | A.OFFVIS_ITS ---
Vital Signs 08/29/24 10:06 Height 4 ft 11 in Weight 128 lb 4.944 oz BMI 25.9 BP 100/58 L Blood Pressure Location Lt brachial Position Sitting Intake Visit Reasons: f/u [facility] Intake Note: Patient present today for [facility] office visit. 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: No Accompanied by: Self / Same As Patient Allergies Iodinated Contrast Media [CONTRAST, IV] Allergy (Intermediate, Verified 08/29/24 10:11) HIVES iopromide [From ULTRAVIST] Allergy (Intermediate, Verified 08/29/24 10:11) HIVES ibuprofen [From MOTRIN] Adverse Reaction (Intermediate, Verified 08/29/24 10:11) NAUSEA & VOMITING HPI Comments Details: 58 -year-old female, today for follow-up visit, nontoxic multinodular goiter HPI from prior visit Patient had fine-needle aspiration of isthmic/left thyroid nodule that was benign follicular nodule cystic degeneration [place] category 2 on 07/08/2018. 05/22/2022, FNA biopsies of the left upper 1.4 cm, left lower 1.6 cm in thyroid isthmus 1.7 cm nodule were benign. [place] category 2. She denies cold or heat intolerance, weight loss or gain, diarrhea, constipation, insomnia, fatigue, dry skin, denies dyspnea, dysphonia, tremors, palpitations, irritability, anxiety. Family History: Has negative family history of thyroid disease. Interval history She does complain of some dripping and clearing of the throat but no clear obstructive symptoms Most recent thyroid ultrasound 05/09/2024: Showed significant change in the size of the left superior 1.4 cm nodule which has changed significantly in volume from 0.5 mL to 0.82 mL. Also went up from category TR 4 to TR 5. It is labeled as taller than wide which I agree with when I reviewed the images however also sees punctate echogenic foci which I do not see. Physical exam General: sitting comfortably in no acute distress HEENT: normocephalic/atraumatic, Neck: supple, symmetrical, palpable 1 cm left sided and isthmus nodules Cardiac: normal heart sounds Pulm: normal breath sounds B/L, no added breath sounds Abd: not distended, no tenderness Extremities: no edema, no signs of myxedema Laboratory Tests 05/04/24 12:27 TSH 1.18 Free T4 0.98 Imaging 04/09/2020 barium swallowing study Mild indentation of the posterior cervical esophageal wall from the metallic plate and screws for C6 and C7 ventral fusion but no obstruction is seen. The rest of the esophagus is unremarkable. No gastroesophageal reflux or hiatal hernia. Date of Service: 03/19/21 US THYROID Right Thyroid Lobe: 4.6 x 1.2 x 1.5 cm, volume 4.2 mL. Previously 4.6 x 1.1 x 1.3 cm, volume 3.6 mL. Parenchyma: The gland echotexture is homogeneous. Thyroid vascularity is normal. Left Thyroid Lobe: 4.8 x 1.2 x 1.4 cm, volume 4.2 mL. Previously 4.9 x 1.6 x 1.2 cm, volume 4.8 mL. Parenchyma: The gland echotexture is homogeneous. Thyroid vascularity is normal. Isthmus: 0.3 cm in maximum AP dimension. Previously 0.5 cm. Estimated total number of nodules greater than or equal to 1 cm: 2. 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 Location: Right lower pole. Size: 0.4 x 0.3 x 0.4 cm, volume 0.02 mL. Previously: 0.4 x 0.4 x 0.4 cm, volume 0.03 mL. Nodule characteristics: Composition: Solid/almost completely solid (2). Echogenicity: Hyperechoic (1). Shape: Not taller than wide (0). Margins: Smooth (0). Echogenic Foci: Peripheral calcifications (2). ACR TI-RADS total points: 5: ACR TI-RADS category: 4 Significant change in size (>/= 20% in 2 dimensions and minimal increase of 2 mm or 50% or greater increase in volume): Change in features: Change in ACR TI-RADS risk category: 2. Location: Left upper pole. Size: 1.0 x 0.8 x 0.8 cm, volume 0.36 mL. Previously: 1.0 x 1.0 x 0.8 cm, volume 0.38 mL. Nodule characteristics: Composition: Solid/almost completely solid (2). Echogenicity: Hypoechoic (2). Shape: Not taller than wide (0). Margins: Smooth (0). Echogenic Foci: None (0). ACR TI-RADS total points: 4 ACR TI-RADS category: 4 Significant change in size (>/= 20% in 2 dimensions and minimal increase of 2 mm or 50% or greater increase in volume): Change in features: Change in ACR TI-RADS risk category: 3. Location: Left mid pole. Size: 0.4 x 0.2 x 0.3 cm, volume 0.014 mL. Previously: 0.5 x 0.3 x 0.3 cm, volume 0.02 mL. Nodule characteristics: Composition: Solid/almost completely solid (2). Echogenicity: Hypoechoic (2). Shape: Not taller than wide (0). Margins: Smooth (0). Echogenic Foci: None (0). ACR TI-RADS total points: 4 ACR TI-RADS category: 4 Significant change in size (>/= 20% in 2 dimensions and minimal increase of 2 mm or 50% or greater increase in volume): Change in features: Change in ACR TI-RADS risk category: 4. Location: Left lower pole. Size: 1.4 x 0.9 x 1.2 cm, volume 0.78 mL. Previously: 1.1 x 1.3 x 1.2 cm, volume 0.9 mL. Nodule characteristics: Composition: Mixed cystic and solid (1). Echogenicity: Hyperechoic (1). Shape: Not taller than wide (0). Margins: Smooth (0). Echogenic Foci: None (0). ACR TI-RADS total points: 2 ACR TI-RADS category: 2 Significant change in size (>/= 20% in 2 dimensions and minimal increase of 2 mm or 50% or greater increase in volume): Change in features: Change in ACR TI-RADS risk category: 5. Location: Isthmus, lower pole. Size: 1.0 x 0.6 x 1.3 cm, volume 0.36 mL. Previously: 1.5 x 1.2 x 1.3 cm, volume 1.2 mL. Nodule characteristics: Composition: Mixed cystic and solid (1). Echogenicity: Hypoechoic (2). Shape: Not taller than wide (0). Margins: Smooth (0). Echogenic Foci: None (0). ACR TI-RADS total points: 3 ACR TI-RADS category: 3 Significant change in size (>/= 20% in 2 dimensions and minimal increase of 2 mm or 50% or greater increase in volume): Change in features: Change in ACR TI-RADS risk category: NODES: No lymphadenopathy is seen in the tissue surrounding the thyroid gland. 02/02/2020 TSH 1.12 mIU/mL Free T4 0.99 dL. Laboratory Tests 12/04/20 13:10 TSH 1.00 Free T4 0.85 Repeat thyroid ultrasound 06/16/2023 showed no change in the size of the nodules FINDINGS: SIZE: Measurements of the thyroid lobes and nodules are given in sagittal, anteroposterior and transverse dimensions respectively. Right Thyroid Lobe: 5.0 x 1.3 x 1.5 cm, volume 5.1 mL. Previously 4.9 x 1.4 x 1.2 cm, volume 4.3 mL. Parenchyma: The gland echotexture is homogeneous. Thyroid vascularity is increased. Left Thyroid Lobe: 5.3 x 1.5 x 1.2 cm, volume 5.0 mL. Previously 5.5 x 1.3 x 1.4 cm, volume 5.2 mL. Parenchyma: The gland echotexture is heterogeneous. Thyroid vascularity is increased. Isthmus: 0.4 cm in maximum AP dimension. Previously 0.4 cm. Estimated total number of nodules greater than or equal to 1 cm: 3. 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 Location: Lower pole isthmus. Size: 1.7 x 0.9 x 1.2 cm, volume 0.9 mL. Previously: 1.7 x 1.1 x 1.6 cm, volume 1.6 mL. Nodule characteristics: Composition: Solid/almost completely solid (2). Echogenicity: Hypoechoic (2). Shape: Not taller than wide (0). Margins: Smooth (0). Echogenic Foci: Comet-tail artifacts (0). ACR TI-RADS total points: 4 Previous: 4 ACR TI-RADS category: 4 Previous: 4 Significant change in size (>/= 20% in 2 dimensions and minimal increase of 2 mm or 50% or greater increase in volume): No Change in features: No Change in ACR TI-RADS risk category: No 2. Location: Right lower pole. Size: 0.4 x 0.3 x 0.4 cm, volume 0.02 mL. Previously: 0.3 x 0.4 x 0.4 cm, volume 0.03 mL. Nodule characteristics: Composition: Solid/almost completely solid (2). Echogenicity: Hyperechoic (1). Shape: Not taller than wide (0). Margins: Smooth (0). Echogenic Foci: Peripheral calcifications (2). ACR TI-RADS total points: 5 Previous: 5 ACR TI-RADS category: 4 Previous: 4 Significant change in size (>/= 20% in 2 dimensions and minimal increase of 2 mm or 50% or greater increase in volume): No Change in features: No Change in ACR TI-RADS risk category: No 3. Location: Left upper pole. Size: 1.4 x 0.8 x 0.9 cm, volume 0.5 mL. Previously: 1.4 x 0.7 x 0.9 cm, volume 0.5 mL. Nodule characteristics: Composition: Solid (2). Echogenicity: Hypoechoic (2). Shape: Not taller than wide (0). Margins: Smooth (0). Echogenic Foci: None (0). ACR TI-RADS total points: 4 Previous: 4 ACR TI-RADS category: 4 Previous: 4 Significant change in size (>/= 20% in 2 dimensions and minimal increase of 2 mm or 50% or greater increase in volume): No Change in features: No Change in ACR TI-RADS risk category: No 4. Location: Left mid pole. Size: 0.4 x 0.3 x 0.3 cm, volume 0.02 mL. Previously: 0.3 x 0.2 x 0.3 cm, volume 0.01 mL. Nodule characteristics: Composition: Solid (2). Echogenicity: Hypoechoic (2). Shape: Not taller than wide (0). Margins: Smooth (0). Echogenic Foci: None (0). ACR TI-RADS total points: 4 Previous: 4 ACR TI-RADS category: 4 Previous: 4 Significant change in size (>/= 20% in 2 dimensions and minimal increase of 2 mm or 50% or greater increase in volume): Yes Change in features: No Change in ACR TI-RADS risk category: No 5. Location: Left lower pole. Size: 1.9 x 1.3 x 1.8 cm, volume 2.3 mL. Previously: 1.6 x 1.1 x 1.7 cm, volume 1.6 mL. Nodule characteristics: Composition: Mixed cystic and solid (1). Echogenicity: Isoechoic (1). Shape: Not taller than wide (0). Margins: Smooth (0). Echogenic Foci: Comet-tail artifacts (0). ACR TI-RADS total points: 2 Previous: 2 ACR TI-RADS category: 2 Previous: 2 Significant change in size (>/= 20% in 2 dimensions and minimal increase of 2 mm or 50% or greater increase in volume): No Change in features: Currently more cystic-appearing. Change in ACR TI-RADS risk category: No NODES: No lymphadenopathy is seen in the tissue surrounding the thyroid gland. US/US thyroid IMPRESSION: Multiple bilateral thyroid nodules including 1.7 cm isthmus TI RADS 4 nodule for which fine-needle aspiration recommended if not previously performed. Continued sonographic follow-up if 1.4 cm left upper 05/09/2024 Thyroid US US THYROID CLINICAL INFORMATION: Thyroid nodules. COMPARISON: Ultrasound soft tissue head/neck thyroid dated 06/16/2023 and 04/04/2022. TECHNIQUE: Linear transducer grayscale and color Doppler examination with attention to the region of the thyroid. FINDINGS: SIZE: Measurements of the thyroid lobes and nodules are given in sagittal, anteroposterior and transverse dimensions respectively. Right Thyroid Lobe: 5.1 x 1.6 x 1.1 cm, volume 4.6 mL. Previously 5.0 x 1.3 x 1.5 cm, volume 5.1 mL. Parenchyma: The gland echotexture is homogeneous. Thyroid vascularity is increased. Left Thyroid Lobe: 5.3 x 1.5 x 1.8 cm, volume 7.5 mL. Previously 5.3 x 1.5 x 1.2 cm, volume 5.0 mL. Parenchyma: The gland echotexture is homogeneous. Thyroid vascularity is increased. Isthmus: 0.7 cm in maximum AP dimension. Previously 0.4 cm. Estimated total number of nodules greater than or equal to 1 cm: 3. 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 Location: Isthmus. Size: 1.1 x 1.0 x 1.1 cm, volume 0.63 mL. Previously: 1.7 x 0.9 x 1.2 cm, volume0.90 mL. Nodule characteristics: Composition: Solid (2). Echogenicity: Hypoechoic (2). Shape: Not taller than wide (0). Margins: Smooth (0). Echogenic Foci: None (0). ACR TI-RADS total points: 4 Previous: 4 ACR TI-RADS category: 4 Previous: 4 Significant change in size (>/= 20% in 2 dimensions and minimal increase of 2 mm or 50% or greater increase in volume): No Change in features: No Change in ACR TI-RADS risk category: No 2. Location: Isthmus. Size: 0.55 x 0.50 x 0.60 cm, volume 0.09 mL. Previously: Not seen on the previous study. Nodule characteristics: Composition: Solid (2). Echogenicity: Hypoechoic (2). Shape: Not taller than wide (0). Margins: Smooth (0). Echogenic Foci: None (0). ACR TI-RADS total points: 4 ACR TI-RADS category: 4 3. Location: Left inferior. Size: 1.7 x 1.5 x 1.8 cm, volume 2.4 mL. Previously: 1.9 x 1.3 x 1.8 cm, volume 2.3 mL. Nodule characteristics: Composition: Mixed cystic and solid (1). Echogenicity: Cannot be determined (1). Shape: Not taller than wide (0). Margins: Smooth (0). Echogenic Foci: None (0). ACR TI-RADS total points: 2 Previous: 2 ACR TI-RADS category: 2 Previous: 2 Significant change in size (>/= 20% in 2 dimensions and minimal increase of 2 mm or 50% or greater increase in volume): No Change in features: No Change in ACR TI-RADS risk category: No 4. Location: Left superior. Size: 1.4 x 1.2 x 1.0 cm, volume 0.82 mL. Previously: 1.4 x 0.80 x 0.90 cm, volume 0.50 mL. Nodule characteristics: Composition: Solid (2). Echogenicity: Isoechoic (1). Shape: Taller than wide (3). Margins: Smooth (0). Echogenic Foci: Punctate echogenic foci (3). ACR TI-RADS total points: 9 Previous: 4 ACR TI-RADS category: 5 Previous: 4 Significant change in size (>/= 20% in 2 dimensions and minimal increase of 2 mm or 50% or greater increase in volume): Yes Change in features: Yes Change in ACR TI-RADS risk category: Yes, increased from 4-5. NODES: No lymphadenopathy is seen in the tissue surrounding the thyroid gland. US/US thyroid IMPRESSION: Multinodular goiter with 3 nodules over 1 cm in size. The left superior nodule has increased in volume and has changed from category 4 to category 5. Biopsy is recommended. Multinodular goiter with 3 nodules over 1 cm in size. The left superior nodule has increased in volume and has changed from category 4 to category 5. Biopsy is recommended. [facility] Medical History Hyperlipidemia Non-toxic multinodular goiter Fibromyalgia Arthritis History of fibromyalgia History of anxiety History of headache Depression Lab test positive for detection of COVID-19 virus Asthma GERD (gastroesophageal reflux disease) Arthropathy of 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 Mother History of heart attack Social History Household Members: None Housing: Apartment Alcohol intake: never Patient Tobacco Use Status: Never used Tobacco Physical Exam Vital Signs: Last Vital Signs BP 100/58 L 08/29/24 10:06 BMI result Body Mass Index 25.9 Assessment & Plan Assessment & Plan (1) Non-toxic multinodular goiter: Code(s): E04.2 - Nontoxic multinodular goiter Category: Medical Plan: 58-year-old female with no family history of thyroid cancer, with no personal history of head or neck radiation with a history of multinodular goiter at least since 2018. Patient had fine-needle aspiration of isthmic/left thyroid nodule that was benign follicular nodule cystic degeneration [place] category 2 on 07/08/2018. 05/22/2022, FNA biopsies of the left upper 1.4 cm, left lower 1.6 cm in thyroid isthmus 1.7 cm nodule were benign. [place] category 2. Most recent thyroid ultrasound 05/09/2024: Showed significant change in the size of the left superior 1.4 cm nodule which has changed significantly in volume from 0.5 mL to 0.82 mL. Also went up from category TR 4 to TR 5. It is labeled as taller than wide which I agree with when I reviewed the images however also says punctate echogenic foci which I do not see. Regardless given significant change in the size of the nodule, meets criteria for repeat FNA. I explained that it is common to have thyroid nodules. About 95% of the time these nodules are benign. However if the nodule is > 1 cm in size or suspicious on ultrasound then a fine need aspiration biopsy is recommended. We discussed that a FNAB involves 4-5 passes with a small gauge needle and material obtained is sent off for cytology.If the cytopathology is benign then the nodule will be followed annually with repeat ultrasounds. However if it is suspicious or malignant, we will need to discuss further management. Indeterminate cytology can be further investigated with repeat FNA, genetic testing or empiric lobectomy. Malignant cytology is managed with either lobectomy or total thyroidectomy. We discussed briefly that thyroid cancer is, in most patients, an indolent disease that does not affect mortality. We will arrange for FNA of the left superior 1.4 cm at next available opening and patient will follow up with me in clinic thereafter for results and further decision making. Plan: -scheduled for FNA of the left superior 1.4 cm thyroid nodule and follow up 2 weeks after to discuss results Plan I spent 30 minutes in reviewing the record, seeing the patient and documenting in the medical record. Orders: Orders US biopsy thyroid Today E04.2 - Nontoxic multinodular goiter Patient Instructions: We will book you for a left sided thyroid nodule biopsy and a follow up 2 weeks after to discuss results Coding Level of Care Code Est Pt Level 4 (73823) Diagnoses Non-toxic multinodular goiter E04.2 Time Spent (min) 30
[2024-08-29 10:06] VITALS: BP 100/58; BMI 25.9
== END 2024-08-29 10:40 | disposition home or self-care (01) ==
PROVIDERS: PCP Family Medicine; Visit Provider Student in an Organized Health Care Education/Training Program
DX: E04.2 Nontoxic multinodular goiter (principal)
CPT/HCPCS: 99214

== ENCOUNTER → 2024-08-29 09:51 | Outpatient (BNVA) | payer OTHER, SELFPAY | PROVIDERS: PCP Family Medicine; Visit Provider Student in an Organized Health Care Education/Training Program | DX: E04.2 Nontoxic multinodular goiter (principal) | CPT/HCPCS: 99212 ==

== ENCOUNTER 2024-09-21 07:55 | Outpatient (REF) | payer OTHER, SELFPAY ==
--- NOTE | ~2024-09-21 | MR_ITS ---
EXAMINATION: MR BRAIN ANGIOGRAPHY WITHOUT IV CONTRAST HISTORY: sister with brain aneurysm requiring intervention. TECHNIQUE: 2D [id number] MR angiography of the head was performed. COMPARISON: There are no prior studies for comparison. FINDINGS: The basilar, bilateral superior cerebellar, and posterior cerebral arteries are patent and free of significant stenoses. The bilateral intracranial internal carotid arteries are patent. The right anterior cerebral artery is patent. The right middle cerebral artery is patent and demonstrates a normal trifurcation. The left anterior cerebral artery is patent. The left middle cerebral artery is patent and demonstrates a normal trifurcation. No aneurysm is identified. MR/MR angio head wo con IMPRESSION: Unremarkable MR angiogram of the head. Electronically signed by: Jaime Helms MD 09/23/2024 09:31 AM [facility] [place]
--- NOTE | 2024-09-21 09:49 | PM.PROC ---
Brief Operative Note Date of procedure: 09/21/24 Pre-op diagnosis: left superior 1.4 cm thyroid nodule FNA biopsy Post-op diagnosis: same Procedure: THYROID FINE NEEDLE ASPIRATION PROCEDURE NOTE ? PROCEDURE PERFORMED: Ultrasound-guided FNA of thyroid nodule ? OPERATORS: ? INDICATION: left superior 1.4 cm thyroid nodule ; FNA performed to assess for malignancy ? DESCRIPTION OF PROCEDURE: The indications for FNA (to assess for malignancy) were reviewed with the patient in detail. Potential complications (e.g., bleeding, infection, damage to local structures, absence of clear diagnosis after FNA) were reviewed. Alternatives to FNA including conservative observation or surgery were described. The patient understood and agreed to proceed. This was documented by the signing of the written informed consent form. A time-out was performed to confirm the patient's identity and the site of planned FNA. The nodule of interest was identified using ultrasound (14 MHz linear array probe). The site of FNA was then draped in the usual fashion and carefully cleaned and prepared using alcohol swabs. The skin at the previously-identified site of needle insertion was iced and sprayed with numbing spray. Under ultrasound guidance, _5_ passes were performed using a 1.5-inch, 25-gauge needle, and sample was obtained via capillary action. The needle tip was clearly visualized to be within the nodule at the time of sampling for 3__ of _5_ passes The patient tolerated the procedure well. There were no immediate complications. A small adhesive bandage was applied, and the patient was advised to take acetaminophen (rather than NSAIDs) for any discomfort and to report any signs of inflammation/infection or marked swelling. IMPRESSION: Technically successful ultrasound-guided fine needle aspiration of left superior 1.4 cm thyroid nodule . PLAN: The patient was advised that I will provide follow-up regarding the cytology result and any subsequent plans. Noreen Salazar MD Endocrinology Attending Condition: stable Disposition: same day
== END 2024-09-21 07:56 | disposition home or self-care (01) ==
LOC: HO.US 07:55
PROVIDERS: PCP Family Medicine; Visit Provider Student in an Organized Health Care Education/Training Program
DX: E04.2 Nontoxic multinodular goiter (principal); Z82.49 Family history of ischemic heart disease and other diseases of the circulatory system
CPT/HCPCS: 10005; 70544; 88173; 88305

== ENCOUNTER → 2024-09-21 07:55 | Outpatient (BNV) | payer OTHER, SELFPAY | PROVIDERS: PCP Family Medicine; Visit Provider Student in an Organized Health Care Education/Training Program | DX: E04.2 Nontoxic multinodular goiter (principal) | CPT/HCPCS: 10005 ==

== ENCOUNTER → 2024-09-21 09:30 | Outpatient (BNV) | payer OTHER, SELFPAY | PROVIDERS: PCP Family Medicine; Visit Provider Radiology Diagnostic Radiology | DX: I67.1 Cerebral aneurysm, nonruptured (principal) | CPT/HCPCS: 70544 ==

== ENCOUNTER 2024-10-05 13:25 | Outpatient (AMB) | payer OTHER, SELFPAY ==
[2024-10-05 13:26] VITALS: BP 132/86; PULSE 80; BMI 26.3
--- NOTE | 2024-10-05 13:26 | MHC.OFFVIS ---
Vital Signs 10/05/24 13:26 Height 4 ft 11 in Weight 130 lb 1.164 oz BMI 26.3 BP 132/86 Blood Pressure Location Lt brachial Position Sitting Pulse 80 Pulse Source Pulse Oximeter Intake Visit Reasons: F/U-Biopsy Intake Note: Patient present today for biopsy results. 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 05/22/2022, FNA biopsies of the left upper 1.4 cm, left lower 1.6 cm in thyroid isthmus 1.7 cm nodule were benign. Charlotte category 2. She denies cold or heat intolerance, weight loss or gain, diarrhea, constipation, insomnia, fatigue, dry skin, denies dyspnea, dysphonia, tremors, palpitations, irritability, anxiety. Family History: Has negative family history of thyroid disease. Most recent thyroid ultrasound 05/09/2024: Showed significant change in the size of the left superior 1.4 cm nodule which has changed significantly in volume from 0.5 mL to 0.82 mL. Also went up from category TR 4 to TR 5. It is labeled as taller than wide which I agree with when I reviewed the images however also sees punctate echogenic foci which I do not see. Interval history 09/21/2024: Underwent biopsy of the left superior 1.4 cm nodule with benign cytology, Charlotte category 2. No trouble swallowing Physical exam General: sitting comfortably in no acute distress HEENT: normocephalic/atraumatic, Neck: supple, symmetrical, palpable 1 cm left sided and isthmus nodules Cardiac: normal heart sounds Pulm: normal breath sounds B/L, no added breath sounds Abd: not distended, no tenderness Extremities: no edema, no signs of myxedema Laboratory Tests 05/04/24 12:27 TSH 1.18 Free T4 0.98 Imaging 04/09/2020 barium swallowing study Mild indentation of the posterior cervical esophageal wall from the metallic plate and screws for C6 and C7 ventral fusion but no obstruction is seen. The rest of the esophagus is unremarkable. No gastroesophageal reflux or hiatal hernia. Date of Service: 03/19/21 US THYROID Right Thyroid Lobe: 4.6 x 1.2 x 1.5 cm, volume 4.2 mL. Previously 4.6 x 1.1 x 1.3 cm, volume 3.6 mL. Parenchyma: The gland echotexture is homogeneous. Thyroid vascularity is normal. Left Thyroid Lobe: 4.8 x 1.2 x 1.4 cm, volume 4.2 mL. Previously 4.9 x 1.6 x 1.2 cm, volume 4.8 mL. Parenchyma: The gland echotexture is homogeneous. Thyroid vascularity is normal. Isthmus: 0.3 cm in maximum AP dimension. Previously 0.5 cm. Estimated total number of nodules greater than or equal to 1 cm: 2. Mica Patcher nodules are described as follows: 1. Location: Right lower pole. Size: 0.4 x 0.3 x 0.4 cm, volume 0.02 mL. Previously: 0.4 x 0.4 x 0.4 cm, volume 0.03 mL. Nodule characteristics: Composition: Solid/almost completely solid (2). Echogenicity: Hyperechoic (1). Shape: Not taller than wide (0). Margins: Smooth (0). Echogenic Foci: Peripheral calcifications (2). ACR TI-RADS total points: 5: ACR TI-RADS category: 4 Significant change in size (>/= 20% in 2 dimensions and minimal increase of 2 mm or 50% or greater increase in volume): Change in features: Change in ACR TI-RADS risk category: 2. Location: Left upper pole. Size: 1.0 x 0.8 x 0.8 cm, volume 0.36 mL. Previously: 1.0 x 1.0 x 0.8 cm, volume 0.38 mL. Nodule characteristics: Composition: Solid/almost completely solid (2). Echogenicity: Hypoechoic (2). Shape: Not taller than wide (0). Margins: Smooth (0). Echogenic Foci: None (0). ACR TI-RADS total points: 4 ACR TI-RADS category: 4 Significant change in size (>/= 20% in 2 dimensions and minimal increase of 2 mm or 50% or greater increase in volume): Change in features: Change in ACR TI-RADS risk category: 3. Location: Left mid pole. Size: 0.4 x 0.2 x 0.3 cm, volume 0.014 mL. Previously: 0.5 x 0.3 x 0.3 cm, volume 0.02 mL. Nodule characteristics: Composition: Solid/almost completely solid (2). Echogenicity: Hypoechoic (2). Shape: Not taller than wide (0). Margins: Smooth (0). Echogenic Foci: None (0). ACR TI-RADS total points: 4 ACR TI-RADS category: 4 Significant change in size (>/= 20% in 2 dimensions and minimal increase of 2 mm or 50% or greater increase in volume): Change in features: Change in ACR TI-RADS risk category: 4. Location: Left lower pole. Size: 1.4 x 0.9 x 1.2 cm, volume 0.78 mL. Previously: 1.1 x 1.3 x 1.2 cm, volume 0.9 mL. Nodule characteristics: Composition: Mixed cystic and solid (1). Echogenicity: Hyperechoic (1). Shape: Not taller than wide (0). Margins: Smooth (0). Echogenic Foci: None (0). ACR TI-RADS total points: 2 ACR TI-RADS category: 2 Significant change in size (>/= 20% in 2 dimensions and minimal increase of 2 mm or 50% or greater increase in volume): Change in features: Change in ACR TI-RADS risk category: 5. Location: Isthmus, lower pole. Size: 1.0 x 0.6 x 1.3 cm, volume 0.36 mL. Previously: 1.5 x 1.2 x 1.3 cm, volume 1.2 mL. Nodule characteristics: Composition: Mixed cystic and solid (1). Echogenicity: Hypoechoic (2). Shape: Not taller than wide (0). Margins: Smooth (0). Echogenic Foci: None (0). ACR TI-RADS total points: 3 ACR TI-RADS category: 3 Significant change in size (>/= 20% in 2 dimensions and minimal increase of 2 mm or 50% or greater increase in volume): Change in features: Change in ACR TI-RADS risk category: NODES: No lymphadenopathy is seen in the tissue surrounding the thyroid gland. 02/02/2020 TSH 1.12 mIU/mL Free T4 0.99 dL. Laboratory Tests 12/04/20 13:10 TSH 1.00 Free T4 0.85 Repeat thyroid ultrasound 06/16/2023 showed no change in the size of the nodules FINDINGS: SIZE: Measurements of the thyroid lobes and nodules are given in sagittal, anteroposterior and transverse dimensions respectively. Right Thyroid Lobe: 5.0 x 1.3 x 1.5 cm, volume 5.1 mL. Previously 4.9 x 1.4 x 1.2 cm, volume 4.3 mL. Parenchyma: The gland echotexture is homogeneous. Thyroid vascularity is increased. Left Thyroid Lobe: 5.3 x 1.5 x 1.2 cm, volume 5.0 mL. Previously 5.5 x 1.3 x 1.4 cm, volume 5.2 mL. Parenchyma: The gland echotexture is heterogeneous. Thyroid vascularity is increased. Isthmus: 0.4 cm in maximum AP dimension. Previously 0.4 cm. Estimated total number of nodules greater than or equal to 1 cm: 3. Mica Patcher nodules are described as follows: 1. Location: Lower pole isthmus. Size: 1.7 x 0.9 x 1.2 cm, volume 0.9 mL. Previously: 1.7 x 1.1 x 1.6 cm, volume 1.6 mL. Nodule characteristics: Composition: Solid/almost completely solid (2). Echogenicity: Hypoechoic (2). Shape: Not taller than wide (0). Margins: Smooth (0). Echogenic Foci: Comet-tail artifacts (0). ACR TI-RADS total points: 4 Previous: 4 ACR TI-RADS category: 4 Previous: 4 Significant change in size (>/= 20% in 2 dimensions and minimal increase of 2 mm or 50% or greater increase in volume): No Change in features: No Change in ACR TI-RADS risk category: No 2. Location: Right lower pole. Size: 0.4 x 0.3 x 0.4 cm, volume 0.02 mL. Previously: 0.3 x 0.4 x 0.4 cm, volume 0.03 mL. Nodule characteristics: Composition: Solid/almost completely solid (2). Echogenicity: Hyperechoic (1). Shape: Not taller than wide (0). Margins: Smooth (0). Echogenic Foci: Peripheral calcifications (2). ACR TI-RADS total points: 5 Previous: 5 ACR TI-RADS category: 4 Previous: 4 Significant change in size (>/= 20% in 2 dimensions and minimal increase of 2 mm or 50% or greater increase in volume): No Change in features: No Change in ACR TI-RADS risk category: No 3. Location: Left upper pole. Size: 1.4 x 0.8 x 0.9 cm, volume 0.5 mL. Previously: 1.4 x 0.7 x 0.9 cm, volume 0.5 mL. Nodule characteristics: Composition: Solid (2). Echogenicity: Hypoechoic (2). Shape: Not taller than wide (0). Margins: Smooth (0). Echogenic Foci: None (0). ACR TI-RADS total points: 4 Previous: 4 ACR TI-RADS category: 4 Previous: 4 Significant change in size (>/= 20% in 2 dimensions and minimal increase of 2 mm or 50% or greater increase in volume): No Change in features: No Change in ACR TI-RADS risk category: No 4. Location: Left mid pole. Size: 0.4 x 0.3 x 0.3 cm, volume 0.02 mL. Previously: 0.3 x 0.2 x 0.3 cm, volume 0.01 mL. Nodule characteristics: Composition: Solid (2). Echogenicity: Hypoechoic (2). Shape: Not taller than wide (0). Margins: Smooth (0). Echogenic Foci: None (0). ACR TI-RADS total points: 4 Previous: 4 ACR TI-RADS category: 4 Previous: 4 Significant change in size (>/= 20% in 2 dimensions and minimal increase of 2 mm or 50% or greater increase in volume): Yes Change in features: No Change in ACR TI-RADS risk category: No 5. Location: Left lower pole. Size: 1.9 x 1.3 x 1.8 cm, volume 2.3 mL. Previously: 1.6 x 1.1 x 1.7 cm, volume 1.6 mL. Nodule characteristics: Composition: Mixed cystic and solid (1). Echogenicity: Isoechoic (1). Shape: Not taller than wide (0). Margins: Smooth (0). Echogenic Foci: Comet-tail artifacts (0). ACR TI-RADS total points: 2 Previous: 2 ACR TI-RADS category: 2 Previous: 2 Significant change in size (>/= 20% in 2 dimensions and minimal increase of 2 mm or 50% or greater increase in volume): No Change in features: Currently more cystic-appearing. Change in ACR TI-RADS risk category: No NODES: No lymphadenopathy is seen in the tissue surrounding the thyroid gland. US/US thyroid IMPRESSION: Multiple bilateral thyroid nodules including 1.7 cm isthmus TI RADS 4 nodule for which fine-needle aspiration recommended if not previously performed. Continued sonographic follow-up if 1.4 cm left upper 05/09/2024 Thyroid US US THYROID CLINICAL INFORMATION: Thyroid nodules. COMPARISON: Ultrasound soft tissue head/neck thyroid dated 06/16/2023 and 04/04/2022. TECHNIQUE: Linear transducer grayscale and color Doppler examination with attention to the region of the thyroid. FINDINGS: SIZE: Measurements of the thyroid lobes and nodules are given in sagittal, anteroposterior and transverse dimensions respectively. Right Thyroid Lobe: 5.1 x 1.6 x 1.1 cm, volume 4.6 mL. Previously 5.0 x 1.3 x 1.5 cm, volume 5.1 mL. Parenchyma: The gland echotexture is homogeneous. Thyroid vascularity is increased. Left Thyroid Lobe: 5.3 x 1.5 x 1.8 cm, volume 7.5 mL. Previously 5.3 x 1.5 x 1.2 cm, volume 5.0 mL. Parenchyma: The gland echotexture is homogeneous. Thyroid vascularity is increased. Isthmus: 0.7 cm in maximum AP dimension. Previously 0.4 cm. Estimated total number of nodules greater than or equal to 1 cm: 3. Mica Patcher nodules are described as follows: 1. Location: Isthmus. Size: 1.1 x 1.0 x 1.1 cm, volume 0.63 mL. Previously: 1.7 x 0.9 x 1.2 cm, volume0.90 mL. Nodule characteristics: Composition: Solid (2). Echogenicity: Hypoechoic (2). Shape: Not taller than wide (0). Margins: Smooth (0). Echogenic Foci: None (0). ACR TI-RADS total points: 4 Previous: 4 ACR TI-RADS category: 4 Previous: 4 Significant change in size (>/= 20% in 2 dimensions and minimal increase of 2 mm or 50% or greater increase in volume): No Change in features: No Change in ACR TI-RADS risk category: No 2. Location: Isthmus. Size: 0.55 x 0.50 x 0.60 cm, volume 0.09 mL. Previously: Not seen on the previous study. Nodule characteristics: Composition: Solid (2). Echogenicity: Hypoechoic (2). Shape: Not taller than wide (0). Margins: Smooth (0). Echogenic Foci: None (0). ACR TI-RADS total points: 4 ACR TI-RADS category: 4 3. Location: Left inferior. Size: 1.7 x 1.5 x 1.8 cm, volume 2.4 mL. Previously: 1.9 x 1.3 x 1.8 cm, volume 2.3 mL. Nodule characteristics: Composition: Mixed cystic and solid (1). Echogenicity: Cannot be determined (1). Shape: Not taller than wide (0). Margins: Smooth (0). Echogenic Foci: None (0). ACR TI-RADS total points: 2 Previous: 2 ACR TI-RADS category: 2 Previous: 2 Significant change in size (>/= 20% in 2 dimensions and minimal increase of 2 mm or 50% or greater increase in volume): No Change in features: No Change in ACR TI-RADS risk category: No 4. Location: Left superior. Size: 1.4 x 1.2 x 1.0 cm, volume 0.82 mL. Previously: 1.4 x 0.80 x 0.90 cm, volume 0.50 mL. Nodule characteristics: Composition: Solid (2). Echogenicity: Isoechoic (1). Shape: Taller than wide (3). Margins: Smooth (0). Echogenic Foci: Punctate echogenic foci (3). ACR TI-RADS total points: 9 Previous: 4 ACR TI-RADS category: 5 Previous: 4 Significant change in size (>/= 20% in 2 dimensions and minimal increase of 2 mm or 50% or greater increase in volume): Yes Change in features: Yes Change in ACR TI-RADS risk category: Yes, increased from 4-5. NODES: No lymphadenopathy is seen in the tissue surrounding the thyroid gland. US/US thyroid IMPRESSION: Multinodular goiter with 3 nodules over 1 cm in size. The left superior nodule has increased in volume and has changed from category 4 to category 5. Biopsy is recommended. Multinodular goiter with 3 nodules over 1 cm in size. The left superior nodule has increased in volume and has changed from category 4 to category 5. Biopsy is recommended. [facility] Medical History Hyperlipidemia Non-toxic multinodular goiter Fibromyalgia Arthritis History of fibromyalgia History of anxiety History of headache Depression Lab test positive for detection of COVID-19 virus Asthma GERD (gastroesophageal reflux disease) Arthropathy of 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 Mother History of heart attack Social History Household Members: None Housing: Apartment Alcohol intake: never Patient Tobacco Use Status: Never used Tobacco Physical Exam Vital Signs: Last Vital Signs Pulse 80 10/05/24 13:26 BP 132/86 10/05/24 13:26 BMI result Body Mass Index 26.3 Assessment & Plan Assessment & Plan (1) Non-toxic multinodular goiter: Code(s): E04.2 - Nontoxic multinodular goiter Category: Medical Plan: 58-year-old female with no family history of thyroid cancer, with no personal history of head or neck radiation with a history of multinodular goiter at least since 2018. 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 05/22/2022, FNA biopsies of the left upper 1.4 cm, left lower 1.6 cm in thyroid isthmus 1.7 cm nodule were benign. Charlotte category 2. Most recent thyroid ultrasound 05/09/2024: Showed significant change in the size of the left superior 1.4 cm nodule which has changed significantly in volume from 0.5 mL to 0.82 mL. Also went up from category TR 4 to TR 5. It is labeled as taller than wide which I agree with when I reviewed the images however also says punctate echogenic foci which I do not see. Regardless given significant change in the size of the nodule, meets criteria for repeat FNA. 09/21/2024: Underwent biopsy of the left superior 1.4 cm nodule with benign cytology, Charlotte category 2. Discussed with the patient benign results mean less than 3 % chance of malignancy. Plan: -repeat thyroid ultrasound ordered in August 2025 -TSH with reflex free t4 prior to follow up in 1 year -follow up in 1 year after repeat thyroid ultrasound Plan See above Orders: Orders TSH reflex Free T4 08/28/25 E04.2 - Nontoxic multinodular goiter US thyroid 08/28/25 E04.2 - Nontoxic multinodular goiter Patient Instructions: Repeat thyroid US and blood work ordered for August 2025 and follow up in September 2025 to discuss results Coding Level of Care Code Est Pt Level 3 (43595) Diagnoses Non-toxic multinodular goiter E04.2
--- OUTSIDE RECORDS SUMMARY | 2024-10-05 15:30 | XMS_ITS | Encounter Summary ---
Author Organization [employer] Address [address] [place] [address] Care Team Providers Care Flatwork Presser Name Role Phone DellaSarah mills Primary Care Provider + [phone] Reason for Visit * Reason Onset Date Comments Recall Appt. 09/30/2024 Encounter Details Date Type Department Care Team ([facility] st Contact Info) Description 09/30/2024 Telephone [facility] MEDICINE [address], [place] [phone] Lennie Cuenca MA Recall Appt. Social History Tobacco Use Types Packs/Day Years Used Date Smoking Tobacco: Never Passive Smoke Exposure: Never Smokeless Tobacco: Never Alcohol Use Standard Drinks/Week Comments Never 0 (1 standard drink = 0.6 oz pur e alcohol) Alcohol Answer Date Recorded Frequency of Alcohol Consumption Not on file 07/22/2024 Average Number of Drinks Not on file 024 Frequency of Binge Drinking Not on file 04/2024 Score 0 07/22/2024 Depression Answer Date Recorded Patient Health Questionnaire-9 Score 11 05/04/2024 Patient Health Questionnaire-9 Score 11 05/04/2024 Last PHQ-9: Questionnaire Data Not on file 0 05/04/2024 Housing Stability Answer Date Recorded What is your housing situation today? I have dave king 07/22/[address] you li ve. Do you have problems with any of the following? None of the above 07/22/2024 Food Insecurity Answer Date Recorded Within the past 12 months, y ou worried that your food would run out before you got money to buy more: Never True 07/22/2024 Within the past 12 months,th e food you bought just didn't last and you didn't have enough money to get more: Never True 04/2024 Transportation Answer Date Recorded In the past 12 months, has l ack of transportation kept you from medical appts, meetings, work or from getting things needed for daily living? No 07/22/2024 Utilities Answer Date Recorded In the past 12 months, has t he electric, gas, oil or water company threatened to shut off services in your home? No 07/22/2024 Depression Answer Date Recorded Patient Health Questionnaire-2 Score 4 05/04/2024 Internet Access Answer Date Recorded Internet Access Q1 Yes 07/22/2024 Internet Access Q2 Not on file 07/22/2024 Comments Unknown Sex and Gender Information Value Date Recorded Sex Assigned at Female 07/14/2022 10:29 AM EDT Legal Sex Female 10:29 AM EDT Gender Identity Female 07/14/2022 10:29 AM EDT Sexual Orientation Don't know 07/14/2022 10 :29 AM EDT documented as of this encounter Miscellaneous Notes * Telephone Encounter - Lennie Cuenca MA - 09/30/2024 1:33 PM EST 09/30/24-Spoke with patient schedule OV 11/14/24 at 11:15am. Mailed appt. Letter. documented in this encounter Plan of Treatment Upcoming Encounters Date Type Department Care Team (Late st Contact Info) Description 10/06/2024 10:00 AM EST Office Visit [facility] OPTOMETRY [address] [place] [address] Cindy Meek, OD [address] [place] [address] 10/24/2024 9:00 AM EST Clinical Support [facility] MEDICINE [address] [place] [id number] Lauryn Cunningham, LUISITO 11/14/2024 11:15 AM EST Office Visit [address] [address] Sarah Verduzco DO [address] [place] [address] documented as of this encounter Visit Diagnoses Not on filedocumented in this encounter Additional Health Concerns Assessment Noted Time PHQ-9 Depression Total Score: 11 024 10:42 AM EDT documented as of this encounter Care Teams Flatwork Presser Relationship Specialty Start Date End Date Sarah Verduzco DO [address] [facility] [address] PCP - General Family Medicine 11/21/15 documented as of this encounter
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
--- OUTSIDE RECORDS SUMMARY | 2024-10-05 15:30 | XMS_ITS | Encounter Summary ---
Author Organization [employer] Address [address] [place] [address] Care Team Providers Care Federal Law Clerk Name Role Phone DellaSarah mills Primary Care Provider + [phone] Encounter Details Date Type Department Care Team (Latest Contact Info) Description 09/30/2024 Travel Social History Tobacco Use Types Packs/Day Years [...] AM EDT documented as of this encounter Plan of Treatment Upcoming Encounters Date Type Department Care Team (Late st Contact Info) Description 10/06/2024 10:00 AM EST Office Visit [facility] OPTOMETRY [address] [place] [address] Cindy Meek, OD [address] [place] [address] 10/24/2024 9:00 AM EST Clinical Support [facility] MEDICINE [address] [place] [phone] Lauryn Cunningham, LUISITO 11/14/2024 11:15 AM EST Office Visit [facility] [address] [place] [phone] Sarah Verduzco DO [address] [place] [address] documented as of this encounter Visit Diagnoses Not on filedocumented in this encounter Additional Health Concerns Assessment Noted Time PHQ-9 Depression Total Score: 11 024 10:42 AM EDT documented as of this encounter Care Teams Federal Law Clerk Relationship Specialty Start Date End Date Sarah Verduzco DO [address] [place] [id number] PCP - General Family Medicine 11/21/15 documented as of this encounter
--- OUTSIDE RECORDS SUMMARY | 2024-10-05 15:30 | XMS_ITS | Encounter Summary ---
Author Organization [employer] Address [address] [facility] [address] [place] [address] Care Team Providers Care Rocket Test Fire Worker Name Role Phone Sarah Verduzco DO Primary Care Provider + [phone] Reason for Visit * Reason Comments Med Refill Encounter Details Date Type Department Care Team ([facility] Contact Info) Description 10/05/[address] [facility] MEDICINE [address] [place], [place] [phone] Sarah Verduzco DO [address] [place], [place] [phone] Social History Tobacco Use Types Packs/Day Years [...] Description 10/06/2024 10:00 AM EST Office Visit [facility] OPTOMETRY [address] [place] [address] Cindy Meek, OD [address] [place] [address] 10/24/2024 9:00 AM EST Clinical Support [facility] MEDICINE [address] [place] [phone] Lauyrn Cunningham, LUISITO 11/14/2024 11:15 AM EST Office Visit [facility] MEDICINE [address] [place] [phone] Sarah Verduzco DO [address] [place] [address] documented as of this encounter Visit Diagnoses Not on filedocumented in this encounter Additional Health Concerns Assessment Noted Time PHQ-9 Depression Total Score: 11 024 10:42 AM EDT documented as of this encounter Care Teams Rocket Test Fire Worker Relationship Specialty Start Date End Date Sarah Verduzco DO [address] [place] [phone] PCP - General Family Medicine 11/21/15 documented as of this encounter
--- OUTSIDE RECORDS SUMMARY | 2024-10-05 15:30 | XMS_ITS | Clinical Summary ---
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 Resonance Report ? Signed ? Patient: Miryam Fan ?MR#: [id number] ?? 06 ? : 1965 ?Acct:[id number] ? Age/Sex: 58 / F ?ADM Date: 09/21/24 ? Loc: HO.US ? Attending Dr: Noreen Salazar MD ? Ordering Physician: Sarah Verduzco DO ?? Date of Service: 09/21/24 ?? Procedure(s): MR angio head wo con ?? Accession Number(s): [id number] ? cc: Sarah Verduzco DO ? EXAMINATION: MR BRAIN ANGIOGRAPHY WITHOUT IV CONTRAST ? HISTORY: sister with brain aneurysm requiring intervention. ? TECHNIQUE: ??2D [id number]-[id number] MR angiography of the head was performed. ? COMPARISON: There are no prior studies for comparison. ? FINDINGS: ? The basilar, bilateral superior cerebellar, and posterior cerebral ?? arteries are patent and free of significant stenoses. ??The bilateral ?? intracranial internal carotid arteries are patent. ??The right anterior ?? cerebral artery is patent. ??The right middle cerebral artery is patent ?? and demonstrates a normal trifurcation. ??The left anterior cerebral ?? artery is patent. ??The left middle cerebral artery is patent and ?? demonstrates a normal trifurcation. ??No aneurysm is identified. ? MR/MR angio head wo con ?? IMPRESSION: ? Unremarkable MR angiogram of the head. ? Electronically signed by: ??Jaime Helms MD ??09/23/2024 09:31 AM EST ? Dictated By: ?Jaime Helms MD ? Signed By: ?<Electronically signed by Jaime Helms MD in OV> ?09/23/24 0931 ? DD/ 0930 ? TD/TT: 09/21/24 0950 ? Sales Service Technician: ? Procedure Note Nitin Ayala - 09/23/2024 [place] [address] Magnetic Resonance Report Signed Patient: Marco Fan#: [id number] 06 : 1965Acct:[id number] Age/Sex: 58 / FADM Date: 09/21/24 Loc: . Attending Dr: Noreen Salazar MD Ordering Physician: Sarah Verduzco DO Date of Service: 09/21/24 Procedure(s): MR angio head wo con Accession Number(s): [id number] cc: Sarah Verduzco DO EXAMINATION: MR BRAIN ANGIOGRAPHY WITHOUT IV CONTRAST HISTORY: sister with brain aneurysm requiring intervention. TECHNIQUE: 2D ncpe-pv-[id number] MR angiography of the head was performed. COMPARISON: There are no prior studies for comparison. FINDINGS: The basilar, bilateral superior cerebellar, and posterior cerebral arteries are patent and free of significant stenoses. The bilateral intracranial internal carotid arteries are patent. The right anterior cerebral artery is patent. The right middle cerebral artery is patent and demonstrates a normal trifurcation. The left anterior cerebral artery is patent. The left middle cerebral artery is patent and demonstrates a normal trifurcation. No aneurysm is identified. MR/MR angio head wo con IMPRESSION: Unremarkable MR angiogram of the head. Electronically signed by: Jaime Helms MD 09/23/2024 09:31 AM EST Dictated By: Jaime Helms MD Signed By: <Electronically signed by Jaime Helms MD in OV> 09/23/[address]30 DD/ 9 TD/TT: 09/21/24949 Sales Service Technician: us Sarah Dax DO IMG MRI PROCEDURES Final Res ult * Cell Block (09/21/2024 8:19 AM EST) 09/21/2024 8:19 AM EST 09/21/2024 11:55 AM EST [facility] - 09/26/2024 6:23 PM EST ----- ------- Name: Miryam Fan ? Age/Sex: 58/F ? : 1965 Unit#: [id number] ?? Attend Dr: Noreen Salazar MD ?Re09/21/24 ?Status: DEP REF ? Location: HO.US ? Disch: ? ----- ------- SPEC : [id number] ?RECD: 09/21/24 ? STATUS: ??SOUT ? REQ NUM: [id number] ? PILI: 09/21/24 ? SUBM DR: Noreen Salazar MD ? ENTERED: ??09/21/24 ?SP TYPE: Cytology ? OTHR DR: Sarah Verduzco DO ? ORDERED: ??Cell Block, Fine Ndl Asp ? Diagnosis ?? Thyroid, left superior nodule, fine needle aspiration biopsy (cytology and cell block): ? -Rockwell System Classification:? Benign (category 2) ? -Description:? Benign follicular cells (normal and microfollicles), few macrophages, ?? abundant colloid, and blood. ?Clinical History Left superior 1.4 cm thyroid nodule FNA biopsy ? Material Received ?? Left superior 1.4 cm thyroid nodule FNA biopsy ? Gross Description Received are 28 cc of bloody tinged CytoLyt fluid from which a ThinPrep slide and cell block are prepared. Copies To: ?? Sarah Verduzco DO ?? [facility] ?? [address] ?? [place] [address] ?? [phone] ?? Noreen Salazar MD ?? [facility] ?? [address] ?? [place] [address] ?? [phone] ?? [email or web address] ----- ------- Signed (signature on file) Tammy Velasquez 09/26/241822 ? ----- ------- ? END OF REPORT ? us Generic External Data Provider LAB CYTOLOGY INOCENCIA HDEZ Final Result [facility] [address] [place] [address] [phone] * Hematoxylin and Eosin Stain (08/24/2024 10:25 AM EST) 08/24/2024 10:2 5 AM EST 08/24/2024 12:07 PM EST Narrative [facility] - 08/26/2024 11:57 AM EST ----- ------- Name: Miryam Fan ? Age/Sex: 58/F ? : 1965 Unit#: [id number] ?? Attend Dr: Jensen Garvin MD ?Re08/24/24 ?Status: DEP SDC ? Location: HO.SSS ?Disch: ? ----- ------- SPEC : [id number] ? RECD: 08/24/24-1206 ? STATUS: ??SOUT ? REQ NUM: [id number] ? PILI: 08/24/24-5 ? SUBM DR: Jensen Garvin MD ? ENTERED: ??08/24/24-1215 ?SP TYPE: Surgical ? OTHR : Sarah Verduzco DO ? ORDERED: ??HE Stain/21, Gross Micro L4/8, IHC, Special st. 2/2, H. pylori, AB/PAS/2 ? Diagnosis ?? A. ??Duodenum, biopsy: ??Duodenal mucosa within normal limits. ? B. ??Stomach, biopsy: ??Antral-type and oxyntic mucosa with mild chronic inactive ?? inflammation; no Helicobacter organisms seen. ? C. ??GE junction, biopsy: ?- Active esophagitis (maximum eosinophil count 1 per high powered field). ?- No glandular epithelium present. ? D. ??Esophagus, distal, biopsy: ??Squamous epithelium within normal limits; no inflammation ?? seen. ? E. ??Cecum, polypectomies: ?- Sessile serrated lesion/polyp; negative for cytologic dysplasia. ?- Colonic mucosa with mild surface hyperplastic changes. ? F. ??Colon, ascending, polypectomy: ??Fragments of tubular adenoma; negative for high-grade ?? dysplasia or carcinoma. ? G. ??Terminal ileum, biopsy: ??Terminal ileal mucosa within normal limits. ? H. ??Colon, random, biopsy: ??Focally active colitis. ?Clinical History Pre-Op Dx: ??Abd pain Post-Op Dx: Mild esophagitis, colon polyps, internal hemorrhoids ?Microscopic Description A-H. ??Microscopic sections examined. ??No metaplastic changes are seen, supported by AB/PAS stains (A and B); no Helicobacter organisms are seen, supported by H. pylori immunostain (B). ? Material Received ?? A. Duodenum bx's ?? B. Stomach bx's ?? C. GE junction bx's ?? D. Distal esophagus bx's ?? E. Cecal polyps ?? F. Ascending colon polyp ? CONTINUED ON NEXT PAGE ----- ------- Name: Miryam Fan ? Age/Sex: 58/F ? : 1965 Unit#: [id number] ?? Attend Dr: Jensen Garvin MD ?Re08/24/24 ?Status: DEP SDC ? Location: HO.SSS ?Disch: ? ----- ------- SPEC : [id number] ? RECD: 08/24/24-1206 ? STATUS: ??SOUT ? REQ NUM: [id number] ? PILI: 08/24/24-5 ? SUBM DR: Jensen Garvin MD ? ENTERED: ??08/24/24-5 ?SP TYPE: Surgical ? OTHR DR: Sarah Verduzco DO ? ORDERED: ??HE Stain/21, Gross Micro L4/8, IHC, Special st. 2/2, H. pylori, AB/PAS/2 ? Material Received ?(Continued) ?? G. Terminal ileum bx's ?? H. Random colon bx's ? Gross Description Received in eight parts. Part A: ??Received in formalin labeled ?duodenum bx's? are 2 ta and pink-red irregular tissue fragments measuring 0.15 and 0.3 cm, submitted in toto in a cassette labeled A. Part B: ??Received in formalin labeled ?stomach bx's? are 2 ta-pink irregular and rectangular tissue fragments measuring 0.25 and 0.3 cm, submitted in toto in a cassette labeled B. Part C: ??Received in formalin labeled ?GE junction bx's? are 2 roper- pink irregular tissue fragments each measuring 0.2 cm, submitted in toto in a cassette labeled C. Part D: ??Received in formalin labeled ?distal esophagus bx's? are 2 roper-white irregular tissue fragments each measuring 0.25 cm, submitted in toto in a cassette labeled D. Part E: ??Received in formalin labeled ?cecal polyps? are 3 ta and ta-pink irregular and rectangular-papular tissue fragments measuring 0.1, 0.4 and 0.6 cm, submitted in toto in a cassette labeled E. Part F: ??Received in formalin labeled ?ascending colon polyp? are 4 ta and ta-pink papular tissue fragments ranging from 0.4 to 0.7 cm, submitted in toto in a cassette labeled F. Part G: ??Received in formalin labeled ?terminal ileum bx's? are 2 ta-pink irregular tissue fragments each measuring 0.25 cm, submitted in toto in a cassette labeled G. Part H: ??Received in formalin labeled ?random colon bx's? are multiple minute to 0.2 cm ta and ta-pink irregular tissue fragments, submitted in toto in a cassette labeled H. ??CEDS Special studies ordered and performed: Immunostain for H. pylori on B; AB/PAS stains on A and B Copies To: ?? Jensen Garvin MD ?? [facility] ?? [address] ?? [place] [address] ?? [phone] ? CONTINUED ON NEXT PAGE ----- ------- Name: Miryam Fan ? Age/Sex: 58/F ? : 1965 Unit#: [id number] ?? Attend Dr: Jensen Garvin MD ?Re08/24/24 ?Status: DEP SDC ? Location: HO.SSS ?Disch: ? ----- ------- SPEC : [id number] ? RECD: 08/24/24-7 ? STATUS: ??SOUT ? REQ NUM: [id number] ? PILI: 08/24/24-5 ? SUBM DR: Jensen Garvin MD ? ENTERED: ??08/24/24-5 ?SP TYPE: Surgical ? OTHR DR: Sarah Verduzco DO ? ORDERED: ??HE /, Gross Micro L4/8, IHC, Special st. 2, H. pylori, AB/PAS/2 ? Copies To: ??(Continued) ?? Sarah Verduzco DO ?? [facility] ?? [address] ?? [place] [address] ?? [phone] ----- ------- Signed (signature on file) Kaleb Gipson MD 08/26/24 3386 ? ----- ------- ? END OF REPORT ? us Generic External Data Provider LAB BLOOD ORDERAB LES Final Result [facility] [address] [place] [address] [phone] * CTA Abdomen w/ and w/o Contrast (07/26/2024 1:51 PM EST) Anatomical Region Laterality Modality Body, Abdomen Computed Tomogra phy 07/26/2024 1:51 PM EST Narrative 07/26/2024 4:06 PM EST ? [facility] ?[address] ?[place] [address] ? [address] Scan Report ? Signed ? Patient: Meng,Miyram ?MR#: [id number] ?? 06 ? : 1965 ?Acct:[id number] ? Age/Sex: 58 / F ?ADM Date: 07/26/24 ? Loc: HO.CT ? Attending Dr: Jensen Garvin MD ? Ordering Physician: Jensen Garvin MD ?? Date of Service: 07/26/24 ?? Procedure(s): CT angio abdomen ?? Accession Number(s): [id number] ? cc: Jensen Garvin MD; Sarah Verduzco DO ? EXAMINATION: ?? CT ANGIOGRAM ABDOMEN ? CLINICAL INFORMATION: ?? Left upper quadrant pain ? COMPARISON: ?? Ultrasound 04/28/2023, CT abdomen and pelvis 11/18/2021 ? TECHNIQUE: ?? Multiple axial images were obtained through the abdomen following the ?? administration of 80 mL Omnipaque 350 intravenous contrast. Images were ?? reviewed on a dedicated 3-D workstation. ? This CT examination was performed using dose optimization techniques as ?? appropriate, variously including the following: ?? *Automated exposure control ?? *Adjustment of mA and/or kV according to patient size (this includes ?? techniques or standardized protocols for targeted exams where dose is ?? matched to indication/reason for exam; i.e. extremities or head) ?? *Use of iterative reconstruction technique ? DLP: ?? 110 mGy-cm ? FINDINGS: ?? Lung bases: Minimal linear atelectasis within the right middle lobe. No ?? pleural effusion. Imaged heart is unremarkable. ? Vascular: ? The abdominal aorta is normal in caliber. There is minimal eccentric ?? calcification. There is no evidence of dissection or other acute aortic ?? syndrome. The iliac bifurcation is unremarkable. The common iliac ?? arteries have minimal eccentric calcific disease without luminal ?? narrowing. The visualized portions of the right external and internal ?? iliac arteries are normal in caliber. ? Celiac artery is patent. Superior mesenteric artery is patent. The ?? inferior mesenteric artery is patent. ? There are 2 right renal arteries and a single left renal artery. Renal ?? arteries are well-opacified and normal in caliber. ? There is an unremarkable appearance of the portal mesenteric venous ?? system for an arterial phase of contrast. ? Unremarkable appearance of the inferior vena cava and renal veins. ? LIVER, GALLBLADDER, AND BILIARY TREE: Liver is normal in size and ?? overall attenuation. There is a 9 mm hypoattenuating structure within ?? the inferior margin of the left hepatic lobe (image 22, series 5) and ?? there is a similar appearing 6 mm hypoattenuating structure within the ?? subcapsular aspect of segment 4A (image 11, series 5). These could ?? represent simple cysts. No other hepatic lesions are identified. There ?? is no intra or extra hepatic duct dilation. The gallbladder is ?? surgically absent. ? PANCREAS: Unremarkable. No duct dilation. ? SPLEEN: Heterogeneous enhancement secondary to arterial phase of ?? contrast, otherwise unremarkable. ? ADRENAL GLANDS AND KIDNEYS: The adrenal glands are unremarkable. At the ?? anterior aspect of the upper pole of the right kidney there is a 9 mm ?? cyst which would not require routine radiographic follow-up. An ?? additional 1 cm cyst is present at the lower pole of the left kidney. ?? No renal calculi. No hydronephrosis. No hydroureter. ? Gastrointestinal: The distal esophagus and stomach are unremarkable. ?? The imaged small large bowel are nondilated and no bowel wall ?? inflammatory changes are seen. Incidentally there is a small duodenal ?? diverticulum at the third portion of the duodenum. ? LYMPH NODES: Normal. ? BONES: No acute or aggressive bony. ? CT/CT angio abdomen ?? IMPRESSION: ?? Patent abdominal arterial vasculature. No definite etiology for ?? patient's current presentation is identified. ? Fleischner guidelines were followed. ? Electronically signed by: ??Brent Haynes MD ??07/26/2024 04:02 PM EST RP ? Dictated By: ?Ruben Haynes MD ? Signed By: ?<Electronically signed by Ruben Haynes MD in OV> ? 07/26/24 1602 ? DD/ 1351 ? TD/TT: 07/26/24 1410 ? Sales Service Technician: DC ? Procedure Note Donsandyter, Image - 07/26/[address] [place] [address] [address] Scan Report Signed Patient: Marco Fan#: [id number] 06 : 1965Acct:[id number] Age/Sex: 58 / FADM Date: 07/26/24 Loc: HO.CT Attending Dr: Jensen Garvin MD Ordering Physician: Jensen Garvin MD Date of Service: 07/26/24 Procedure(s): CT angio abdomen Accession Number(s): [id number] cc: Jensen Garvin MD; Sarah Verduzco DO EXAMINATION: CT ANGIOGRAM ABDOMEN CLINICAL INFORMATION: Left upper quadrant pain COMPARISON: Ultrasound 04/28/2023, CT abdomen and pelvis 11/18/2021 TECHNIQUE: Multiple axial images were obtained through the abdomen following the administration of 80 mL Omnipaque 350 intravenous contrast. Images were reviewed on a dedicated 3-D workstation. This CT examination was performed using dose optimization techniques as appropriate, variously including the following: *Automated exposure control *Adjustment of mA and/or kV according to patient size (this includes techniques or standardized protocols for targeted exams where dose is matched to indication/reason for exam; i.e. extremities or head) *Use of iterative reconstruction technique DLP: 110 mGy-cm FINDINGS: Lung bases: Minimal linear atelectasis within the right middle lobe. No pleural effusion. Imaged heart is unremarkable. Vascular: The abdominal aorta is normal in caliber. There is minimal eccentric calcification. There is no evidence of dissection or other acute aortic syndrome. The iliac bifurcation is unremarkable. The common iliac arteries have minimal eccentric calcific disease without luminal narrowing. The visualized portions of the right external and internal iliac arteries are normal in caliber. Celiac artery is patent. Superior mesenteric artery is patent. The inferior mesenteric artery is patent. There are 2 right renal arteries and a single left renal artery. Renal arteries are well-opacified and normal in caliber. There is an unremarkable appearance of the portal mesenteric venous system for an arterial phase of contrast. Unremarkable appearance of the inferior vena cava and renal veins. LIVER, GALLBLADDER, AND BILIARY TREE: Liver is normal in size and overall attenuation. There is a 9 mm hypoattenuating structure within the inferior margin of the left hepatic lobe (image 22, series 5) and there is a similar appearing 6 mm hypoattenuating structure within the subcapsular aspect of segment 4A (image 11, series 5). These could represent simple cysts. No other hepatic lesions are identified. There is no intra or extra hepatic duct dilation. The gallbladder is surgically absent. PANCREAS: Unremarkable. No duct dilation. SPLEEN: Heterogeneous enhancement secondary to arterial phase of contrast, otherwise unremarkable. ADRENAL GLANDS AND KIDNEYS: The adrenal glands are unremarkable. At the anterior aspect of the upper pole of the right kidney there is a 9 mm cyst which would not require routine radiographic follow-up. An additional 1 cm cyst is present at the lower pole of the left kidney. No renal calculi. No hydronephrosis. No hydroureter. Gastrointestinal: The distal esophagus and stomach are unremarkable. The imaged small large bowel are nondilated and no bowel wall inflammatory changes are seen. Incidentally there is a small duodenal diverticulum at the third portion of the duodenum. LYMPH NODES: Normal. BONES: No acute or aggressive bony. CT/CT angio abdomen IMPRESSION: Patent abdominal arterial vasculature. No definite etiology for patient's current presentation is identified. Fleischner guidelines were followed. Electronically signed by: Brent Haynes MD 07/26/2024 04:02 PM [facility] Workstation: [id number] Dictated By: Ruben Haynes MD Signed By: <Electronically signed by Ruben Haynes MD in OV> 07/26/24 1602 DD/ 1351 TD/TT: 07/26/24 1410 Sales Service Technician: AMY [facility] External Provider IMG CT PROCEDURES Final Result * POCT Creatinine GFR (07/26/2024 1:50 PM EST) POCT Creatinine 0.7 0.5 - 1.4 mg/dL [facility] GFR POC >60 [facility] Comment:Chronic Kidney Disea se: Estimated GFR < 60 mL/min/1.50z3Ospixd Kidney Disease: Estimated GFR < 15 mL/min/1.73m2 07/26/2024 1:50 PM EST 07/27/2024 11:10 AM EST Narrative [facility] - 07/27/2024 11:15 AM EST [id number] Generic External Data Provider LAB POINT OF CARE TEST DOCKED DEVICE ORDERABLES Final Result Performing Organization Address City/State/[facility] Co de Phone Number [facility] [address] [place] [phone] * POCT NEREYDA-14 Urine Drug Screen (07/05/2024 2:34 PM EDT) Benzodiazepines Screen, Urine Positive Barbiturate Screen, Urine Positive Urine Urine specimen obtained by clean catch procedure / Unknown 07/05/2024 2:34 PM EDT Narrative Ana Orantes RN - 07/05/2024 2:34 PM EDT .[employer] cup Lot#[id number] Exp. 08/20/25 Internal Pass Control Sarah Verduzco DO POINT OF CARE TEST ENTER/DAVID T ORDERABLES Final Result * BI Mammogram Screening Tomosynthesis Bilateral (06/22/2024 9:45 AM EDT) Anatomical Region Laterality Modality Breast Bilateral Mammography 06/22/2024 9:45 AM EDT Narrative 07/04/2024 6:01 PM EDT ? [place] [facility] ? [address] [place] [address] ? Mammography Report ? Signed ? Patient: Fan,Miryam ?MR#: [id number] ?? 06 ? : 1965 ?Acct:[id number] ? Age/Sex: 58 / F ?ADM Date: 06/22/24 ? Loc: HO.MAMMO ? Attending Dr: Sarah Verduzco DO ? Ordering Physician: Sarah Verduzco DO ?Results: 1N ?? egative ? Date of Service: 06/22/24 ?Follow Up: 1 Year From Orig ?? inal Mammogram ? Procedure(s): MM tomosynthesis screening BI ?? Accession Number(s): [id number] ? cc: Sarah Verduzco DO ? EXAMINATION: ?? MM SCREENING DIGITAL BREAST TOMOSYNTHESIS, BILATERAL ? CLINICAL INFORMATION: ? Screening. Asymptomatic. ? COMPARISON: ?? Mammography: Comparison is made with available priors ? TECHNIQUE: ?? Digital breast mammography with tomosynthesis is performed in both the ?? craniocaudal and mediolateral oblique views along with computer-aided ?? detection (CAD). ? FINDINGS: ?? There are scattered areas of fibroglandular density (ACR BI-RADS breast ?? composition Category b). ? There are no significant masses, abnormal calcifications, or other ?? abnormalities. ? MM/MM tomosynthesis screening BI ?? IMPRESSION: ?? No mammographic evidence of malignancy. ? ASSESSMENT: ? BI-RADS BI-RADS 1 - Negative ? RECOMMENDATION: ?? Routine annual mammography screening. ? 1 year F/U ? This examination should not preclude the clinical evaluation of a ?? suspicious palpable abnormality. ? This patient's information was entered into a reminder system with a ?? target due date for their next mammogram. ? Electronically signed by: ??Mone Valerio DO ??07/04/2024 05:57 PM EDT ? Dictated By: ?Mone Valerio DO ? Signed By: ?<Electronically signed by Mone Valerio, DO in OV> ? 07/04/24 175 ? DD/ 0945 ? TD/TT: 06/22/2458 ? Sales Service Technician: ? Procedure Note Jamie, Image - 07/04/2024 [place] [facility] [address] [place] [address] Mammography Report Signed Patient: Marco Fan#: [id number] 06 : 1965Acct:[id number] Age/Sex: 58 / FADM Date: 06/22/24 Loc: HO.MAMMO Attending Dr: Sarah Verduzco DO Ordering Physician: Sarah Verduzcoults: 1N egative Date of Service: 06/22/24Follow Up: 1 Year From Orig inal Mammogram Procedure(s): MM tomosynthesis screening BI Accession Number(s): [id number] cc: Sarah Verduzco DO EXAMINATION: MM SCREENING DIGITAL BREAST TOMOSYNTHESIS, BILATERAL CLINICAL INFORMATION: Screening. Asymptomatic. COMPARISON: Mammography: Comparison is made with available priors TECHNIQUE: Digital breast mammography with tomosynthesis is performed in both the craniocaudal and mediolateral oblique views along with computer-aided detection (CAD). FINDINGS: There are scattered areas of fibroglandular density (ACR BI-RADS breast composition Category b). There are no significant masses, abnormal calcifications, or other abnormalities. MM/MM tomosynthesis screening BI IMPRESSION: No mammographic evidence of malignancy. ASSESSMENT: BI-RADS BI-RADS 1 - Negative RECOMMENDATION: Routine annual mammography screening. 1 year F/U This examination should not preclude the clinical evaluation of a suspicious palpable abnormality. This patient's information was entered into a reminder system with a target due date for their next mammogram. Electronically signed by: Mone Valerio DO 07/04/2024 05:57 PM EDT RP Dictated By: Mone Valerio DO Signed By: <Electronically signed by Mone Valerio DO in OV> 07/04/24 1757 DD/ TD/TT: 06/22/2458 Sales Service Technician: Sarah Verduzco DO IMG BI PROCEDURES Edited Res ult - Final * Hepatitis C Antibody with Reflex to HCV, RNA, Quantitative, Real-Time PCR (05/04/2024 12:27 PM EDT) Hepatitis C Antibody Nonreactive Nonreactive [facility] Comment:Antibodies to HCV no t detected; does not exclude early acuteHCV infection. Blood Venous blood specimen / Unknown 05/04/2024 12:27 PM EDT 05/04/2024 1:01 PM EDT Sarah Verduzco DO LAB BLOOD ORDERABLES Final R esult [facility] [facility] [address] [place] [phone] * HIV-1/2 Antigen and Antibodies, Fourth Generation, with Reflexes (05/04/2024 12:27 PM EDT) HIV AB/AG Nonreactive Nonreactive [facility] Comment:HIV-1 p24 Ag and/or HIV-1/HIV-2 Ab not detected.A test result that is nonreactive does not exclude thepossibility of exposure to or infection with HIV-1 and/orHIV-2. Nonreactive results in this assay for individualswith prior exposure to HIV-1 and/or HIV-2 may be due toantigen and antibody levels that are below the limit ofdetection of this assay.The [facility] HIV Ag/Ab Combo assay result andsupplemental assay results should be interpreted inconjunction with the patient's clinical presentation,history and other laboratory results. If the results areinconsistent with clinical evidence, additional testing issuggested to confirm the result. Blood Venous blood specimen / Unknown 05/04/2024 12:27 PM EDT 05/04/2024 1:01 PM EDT Sarah Verduzco DO LAB BLOOD ORDERABLES Final R esult [facility] [address] [place] [phone] * Colonoscopy (03/24/2017 8:58 AM EDT) Historical Provider MD HEALTH MAINTENANCE Final Result from Last 3 Months or Most Recently Relevant to Health Maintenance Insurance [facility] Care Teams Log Chain Feeder Relationship Specialty Start Date End Date Sarah Verduzco DO [address] [place] [phone] PCP - General Family Medicine 11/21/15
--- OUTSIDE RECORDS SUMMARY | 2024-10-05 15:30 | XMS_ITS | Encounter Summary ---
Author Organization [facility] Address [address] [place] [address] Care Team Providers Care Putty Mixer Name Role Phone Sarah Verduzco Primary Care Provider [phone]- [phone] Encounter Details Date Type Department Care Team ([facility] Contact Info) Description 09/27/2024 Telephone Neurosurgery [facility] [address] [place] [address] Mimi Newsome PA [address], [address] [place] [address] Social History Tobacco Use Types Packs/Day Years Used Date Smoking Tobacco: Former Smokeless Tobacco: Never Sex and Gender Information Value Date Recorded Sex Assigned at Not on file Gender Identity Not on file Sexual Orientation Not on file Job Start Date Occupation Industry Not on file Not on file Not on file documented as of this encounter Progress Notes * ADALBERTO Lisa - 09/27/2024 6:25 PM EST I called patient to let her know I reviewed lumbar spine MRI with Dr. Pollock, she has left L5-S1 facet disease, some loss of disc height at L4-5, overall nothing that would require surgical intervention at this time. Patient currently is going for acupuncture, has been sick, fever, cold symptoms, just went to urgent care. She currently had a put hold on physical therapy and acupuncture. She will call with an update when she completes it, can follow-up in the office afterward. All questions answered. documented in this encounter Plan of Treatment Not on file documented as of this encounter Visit Diagnoses Not on filedocumented in this encounter Care Teams Putty Mixer Relationship Specialty Start Date End Date Sarah Verduzco DO [address] [place], [place] PCP - General Internal Medicine 02/09/18 documented as of this encounter
--- OUTSIDE RECORDS SUMMARY | 2024-10-05 15:30 | XMS_ITS | Data Portability ---
Author Organization [employer] [facility] Address [address] [place] [phone] Care Team Providers Care Physician Practice Coordinator Name Role Phone [facility] Referring Provider [phone] Assessment Encounter Date Assessment Date Assessment LastModified by Organization Details LastModified Time 03/18/2023 03/18/2023 I provided real -time medical direction via phone for this encounter, and was available for additional phone based assistance as needed. I have reviewed and agree with the Assessment and Plan as documented by the Drier And Evaporator Operator. Patient given the opportunity to ask questions. Advised if develops CP/severe SOB/turning blue/uncontrolle d pain in flank/ abd or uncontrolled n/v/d or black/bloody emesis or stool/ AMS/ syncope/ hi fever unresponsive to APAP to call 911- advised close f/u with pcp and urology -verbalized understanding of instructions to the medic [email or web address] Not available 03/18/2023 12:04:35 Plan of Treatment Reminders Order Date Submit Date Provider Last Modified By Organization Details Last Modified Time Details Appointments None recorded. Lab culture, urine 2022 023 OLTON [facility], [facility] [place], [address], 3 15:12:44 urinalysis, dipstick 2022 023 [email or web address] 0 [facility], [address] [place] [address], [phone], 3 17:08:56 rapid SARS CoV 2 Ag, QL IA, respiratory specimen 2022 023 [email or web address] 0 [facility], [address] [place] [address], [phone], 3 12:05:04 rapid flu (A+B) 2022 023 [email or web address] 0 [facility], [address] [place] [address], [phone], 3 12:05:04 rapid SARS CoV 2 Ag, QL IA, respiratory specimen 2023 024 [email or web address] [facility], [address] [place] [address], [address], 4 18:19:53 rapid flu (A+B) 2023 024 [email or web address] [facility], [address] [place] [address], [phone], 4 18:19:51 Referral None recorded. Procedures None recorded. Surgeries None recorded. Imaging None recorded. Medication Orders Bactrim DS 800 mg-160 mg tablet 2022 023 [email or web address] 0 Not available 3 11:58:51 Bactrim DS 800 mg-160 mg tablet 2022 023 [facility][id number], [address] [place], [address], 3 12:01:26 Valtrex 1 gram tablet 2023 024 [facility] #[id number], [address] [place], [address], 4 18:10:29 Patient TargetsNo targets recorded. Patient InstructionsNo instructions recorded. Reason for Referral None Reported. Results Created Date Observation Date Name Description Value Unit Range Abnormal Flag Note LastModifiedBy Organization Detail LastModifiedTime 03/18/2003/18/2023 URINE CULTU RE specimen description URINE Not Available [facility] [address], [place], [address], 03/20/2023 15:12:44 03/18/20 23 03/18/2023 URINE CULTU RE special requests NONE Not Available [facility] [address] [place], [address], 03/20/2023 15:12:44 03/18/20 23 03/20/2023 URINE CULTU RE culture abnormal >100, 000 COL/M L ESCHE MOISES A COLI This isola te was ident ified using Maldi -TOF syste m These AST resul ts were perfo rmed on the Micro scan ID and AST syste m Not Available [facility] [address] [place], [address], 03/20/2023 15:12:44 03/18/20 23 03/20/2023 URINE CULTU RE report status FINAL 2022 Not Available [facility] [address] [place], [address], 03/20/2023 15:12:44 03/18/20 23 03/20/2023 URINE CULTU RE organism ORGAN ISM >100, 000 COL/M L ESCHE MOISES A COLI This isola te was ident ified using Maldi -TOF syste m These AST resul ts were perfo rmed on the Micro scan ID and AST syste m Not Available [facility] [address] [place], [address], 03/20/2023 15:12:44 03/18/20 23 03/20/2023 URINE CULTU RE method METHOD MIN. INHIB. CONC. (MCG/M L) Not Available [facility] [address] [place], [address], 03/20/2023 15:12:44 03/18/20 23 03/20/2023 URINE CULTU RE amoxicillin/ clavulanic acid AMOXIC ILLIN/ CLAVUL AN SUSCEP TIBLE susceptib le Not Available [facility] [address] [place], [address], 03/20/2023 15:12:44 03/18/20 23 03/20/2023 URINE CULTU RE ampicillin AMPICI LLIN SUSCEP TIBLE susceptib le Not Available [facility] [address] [place], [address], 03/20/2023 15:12:44 03/18/20 23 03/20/2023 URINE CULTU RE ampicillin/s ulbactam AMPICI LLIN/S ULBACT AM SUSCEP TIBLE susceptib le Not Available [facility] [address] [place], [address], 03/20/2023 15:12:44 03/18/20 23 03/20/2023 URINE CULTU RE cefazolin CEFAZO RAQUEL SUSCEP TIBLE susceptib le Not Available [facility] [address] [place], [address], 03/20/2023 15:12:44 03/18/20 23 03/20/2023 URINE CULTU RE cefepime CEFEPI ME SUSCEP TIBLE susceptib le Not Available [facility] [address] [place], [address], 03/20/2023 15:12:44 03/18/20 23 03/20/2023 URINE CULTU RE ceftriaxone CEFTRI AXONE SUSCEP TIBLE susceptib le Not Available [facility] [address] [place], [address], 03/20/2023 15:12:44 03/18/20 23 03/20/2023 URINE CULTU RE ciprofloxaci n CIPROF LOXACI N SUSCEP TIBLE susceptib le Not Available [facility] [address] [place], [address], 03/20/2023 15:12:44 03/18/20 23 03/20/2023 URINE CULTU RE ertapenem ERTAPE NEM SUSCEP TIBLE susceptib le Not Available [facility] [address] [place], [address], 03/20/2023 15:12:44 03/18/20 23 03/20/2023 URINE CULTU RE gentamicin GENTAM ICIN SUSCEP TIBLE susceptib le Not Available [facility] [address] [place], [address], 03/20/2023 15:12:44 03/18/20 23 03/20/2023 URINE CULTU RE levofloxacin LEVOFL OXACIN SUSCEP TIBLE susceptib le Not Available [facility] [address] [place], [address], 03/20/2023 15:12:44 03/18/20 23 03/20/2023 URINE CULTU RE meropenem MEROPE NEM SUSCEP TIBLE susceptib le Not Available [facility] [address] [place], [address], 03/20/2023 15:12:44 03/18/20 23 03/20/2023 URINE CULTU RE nitrofuranto in NITROF URANTO IN SUSCEP TIBLE susceptib le Not Available [facility] [address] [place], [address], 03/20/2023 15:12:44 03/18/20 23 03/20/2023 URINE CULTU RE piperacillin /tazobactam PIPERA CILLIN /TAZOB AC SUSCEP TIBLE susceptib le Not Available [facility] [address] [place], [address], 03/20/2023 15:12:44 03/18/20 23 03/20/2023 URINE CULTU RE tetracycline TETRAC YCLINE SUSCEP TIBLE susceptib le Not Available [facility] [address] [place], [address], 03/20/2023 15:12:44 03/18/20 23 03/20/2023 URINE CULTU RE trimeth/sulf amethox TRIMET H/SULF AMETHO X SUSCEP TIBLE susceptib le Not Available [facility] [address] [place], [address], 03/20/2023 15:12:44 03/18/20 23 03/18/2023 urina lysis , dipst ick Leukocytes 3+ Not Available Main - [address], [address], 03/18/2023 12:05:18 03/18/20 23 03/18/2023 urina lysis , dipst ick Nitrite negati ve Not Available [facility] [address] [place] [address], [address], 03/18/2023 12:05:18 03/18/20 23 03/18/2023 urina lysis , dipst ick Urobilinogen neg Not Available [facility] - [facility] [address] [place] [address], [address], 03/18/2023 12:05:18 03/18/20 23 03/18/2023 urina lysis , dipst ick Protein trace Not Available [facility] - [facility] [address] [place] [address], [address], 03/18/2023 12:05:18 03/18/20 23 03/18/2023 urina lysis , dipst ick pH 6 Not Available [facility] [address] [place] [address], [address], 03/18/2023 12:05:18 03/18/20 23 03/18/2023 urina lysis , dipst ick Blood 4+ Not Available [facility] - [facility] [address] [place] [address], [address], 03/18/2023 12:05:18 03/18/20 23 03/18/2023 urina lysis , dipst ick Specific Downing 1.025 Not Available [facility] - [facility] [address] [place] [address], [address], 03/18/2023 12:05:18 03/18/20 23 03/18/2023 urina lysis , dipst ick Ketone neg Not Available [facility] - [facility] [address] [place] [address], [address], 03/18/2023 12:05:18 03/18/20 23 03/18/2023 urina lysis , dipst ick Bilirubin trace Not Available Main - [facility] [address] [place] [address], [address], 03/18/2023 12:05:18 03/18/20 23 03/18/2023 urina lysis , dipst ick Glucose neg Not Available Main - [facility] [address] [place] [address], [address], 03/18/2023 12:05:18 03/18/20 23 03/18/2023 urina lysis , dipst ick Appearance clear Not Available [facility] [address] [place] [address], [address], 03/18/2023 12:05:18 03/18/20 23 03/18/2023 urina lysis , dipst ick Color light yellow Not Available [facility] ed [address] [place] [address], [address], 03/18/2023 12:05:18 03/18/20 23 03/18/2023 rapid flu (A+B) Flu negati ve Not Available [facility] ed [address] [place] [address], [address], 03/18/2023 12:04:44 03/18/20 23 03/18/2023 rapid SARS CoV 2 Ag, QL IA, respi rator y speci men rapid SARS CoV 2 Ag, QL IA, respiratory specimen negati ve Not Available [facility] ed [address] [place] [address], [address], 03/18/2023 12:04:39 11/03/19 24 11/03/2023 rapid flu (A+B) Flu negati ve Not Available [facility] ed [address] [place] [address], [address], 11/03/2023 18:19:38 11/03/19 24 11/03/2023 rapid SARS CoV 2 Ag, QL IA, respi rator y speci men rapid SARS CoV 2 Ag, QL IA, respiratory specimen negati ve Not Available [facility] ed [address] [place] [address], [address], 11/03/2023 18:19:30 Result Notes None recorded. Medical [...] Not available Not available Not available 03/18/2023 [id number] 2003 SNOMED Kristyn Paredes MD [address] [facility],[address], [place], [address], [employer], [employer] 3 11:50:26 Medications Name Sig Start Date [...] Address Organization Details Last Updated DateTime 03/18/2023 62743.53 g Sonal Guthrie [address] [place] [address],[address], [place], [address], [place] - [employer] 03/18/2023 17:03:15 Date Recorded Heart rate Body height Oxygen saturation Oxygen saturation in Arterial blood by Pulse oximetry Body weight Body temperature Respiratory rate Systolic blood pressure Diastolic blood pressure Provider Name and Address Organization Details Last Updated DateTime 4 67 /min 149.86 cm 96 % 96 % 74284.0 4 g 98.5 [degF] 18 /min 106 [...] Diagnosis/Indication Diagnosis SNOMED-CT Code Diagnosis ICD10 Code Diagnosis Note [id number] [facility] [address] [place] [phone] 03/18/2023 11:44:55 03/19/2023 10:13:17 Viral upper respiratory tract infection [id number] J06.9 Advised if has eye s/s - redness/ d/c or visual changes pls call ophthalmol ogy eliazar/ continue claritin and fluticason e daily- Urinary symptoms [id number] 08 R39.9 has recurrent UTI but other than fever is asymptomat ic- advised given weight - do not exceed 2 grams tylenol per 24 hrs/ rest/ fluids- advised Bactrim can make her sun sensitive- so stay out of sun/ wear hat and spf 45 or > when out while on the antibiotic / rest / drink lots of fluids- advised f/u with pcp within a few days. Advised given stated weight- max apap/Tylen ol is 2 grams per 24 hrs- 500 mg q 6 or 1 000 g 2 x per day. GAEL FIELDS MD [facility] [address] [place] [phone] 11/03/2023 18:02:26 11/04/2023 12:39:09 Herpes labialis [id number] B00.1 Evaluation in the field was performed by my fish hatchery specialist colleague, as noted above, I provided real-time direction and supervisio n for this visit. The evaluation revealed 57 yo female with PMS of Hx GERD, Anxiety, cervical deg. disc disease with complains of headache, runny nose , cough that turned into a productive one with yellow sputum x3 days. Pt reports fever up to 102 on Thursday and Thursday that spontaneou sly resolved. Complains of spots on the face, painful x 2 days .VS stable. Afebrile. headache improved.C ovid and Flu negativePh daniel consistent with herpes simplex. Impression :Herpes simplex. Plan:-Will start valacyclov ir 2 gutierrez BID x1 day . Pt aware that it might not be as effective if it has been more then 72 hrs-Advise d to take Tylenol for pain ( allergic to Ibuprofen )-Increase fluid intake while on valacyclov ir-OTC cough if needed Primary care, consider__ _ Dispositio n: We discussed the diagnostic uncertaint y of home visits and the risk associated with this. In this case, the patient and I felt this to be an acceptable and reasonable amount of risk given the benefit of avoiding an ED visit. We discussed the need to seek care urgently/e mergently in the setting of any new or worsening serious symptoms, particular ly recurrence of fever, chills, CP, SOB, headache , change on mental status or any other concerns. Health Concerns Section Related Observation LastModified by Organization Detai ls LastModified Time None Recorded Concern Status LastModified by Organization Details LastModified Time None Recorded Advance Directives Directive None Recorded Payers Encounter Date Sequence Insurance Name Policy Number Policy Mccollum Covered Member ID Mccollum Member ID Guarantor Name 03/18/2023 1 [facility] - DOS ON OR AFTER 2022 - DUAL ELIGIBLE - CARE HOME OPTIONS AND ONE CARE (MEDICARE REPLACEMENT/ADV ANTAGE - HMO) Miryam Fan [id number] Miryam Fan 11/03/2023 1 [facility] - DOS ON OR AFTER 2022 - DUAL ELIGIBLE - CARE HOME OPTIONS AND ONE CARE (MEDICARE REPLACEMENT/ADV ANTAGE - HMO) Miryam Fan [id number] Miryam Fan Notes Date Note Type Note Provider Name [...] .................. .................. .................. .................. .................. .................. ............... Drier And Evaporator Operator Note From Courtney Gomez: Community Drier And Evaporator Operator Damaso Gomez CCA1 dispatched to a [facility] for a 57 yof C/O sinus [...] urine appeared abnormal. Urine dip in insted. [facility] consulted; pt was given 800 mg bactrim PO, and urine sample was brought to [facility] laboratory for culture. She was instructed [...] was given ( no prior visits in [place] ) but has had bactrim in the past without problems. She reports Temp 101 this am took 1 gram Tylenol- no afebrile Kristyn Paredes MD [address] [facility],[address], [place], [address], [place] [employer] 03/18/2023 17:09:19 11/03/2023 text/html HPI: Hx GERD, Anxiety, cervical deg. disc disease. .................. .................. .................. .................. .................. .................. .................. ............... [facility] Nurse Triage Notes (Fiona Nieves): Comments: HPI reviewed. No additional information needed to process .................. .................. .................. .................. .................. .................. .................. ............... Drier And Evaporator Operator Note From Rubi Hoffman: Sent to a call for a pt complaining of URI symptoms. [facility] arrives on scene, pt is alert and oriented, airway is patent. Pt complains of headache, runny nose w/ clear mucus, cough (turning productive with yellow phlegm yesterday, left rib pain with cough (from previous rib injury) since Thursday, lesions on face since Thursday, and fever Thu-Thu (highest temp 102.0). Pt denies dizziness, sinus pain, sore throat, cp, sob, n/v/d, abd pain, or loc. BP:106/74, P:67, RR:18, SpO2:96% RA, T:98.5; Head: lesions on upper lip, and side of left nare; Lung sounds: clear bilaterally; Abdomen: soft, non-tender, no distention; Back: unremarkable; Extremities: unremarkable; Skin: pink, warm, dry; Rapid covid test: neg; Rapid flu test: neg; [facility] consulted and pt advised it seems lesions are cold sores. [facility] sends script to pt's pharmacy. Pt advised she should drink lots of fluid, take Tylenol for pain, and pt should start seeing improvement in 48hrs. Red flags discussed. Pt has no further questions. .................. .................. .................. .................. .................. .................. .................. ............... Disposition: Fulfilled GAEL FIELDS MD [address] [place] [address],[address], [place], [phone], [employer] 11/03/2023 22:21:59 OBGyn Episode No OBEpisode recorded.
--- OUTSIDE RECORDS SUMMARY | 2024-10-05 15:31 | XMS_ITS | Encounter Summary ---
Author Organization [employer] Address [address] [facility] [address] [place] [address] Care Team Providers Care Stonework Tracer Name Role Phone Sarah Verduzco DO Primary Care Provider + [phone] Reason for Visit * Reason Onset Date Comments Appointment Request 08/22/2024 Encounter Details Date Type Department Care Team ([facility] Contact Info) Description 08/22/2024 Telephone [facility] MEDICINE [address] [place], [place] [phone] Sarah Verduzco DO [address] [place], [place] [phone] Appointment Request Social History Tobacco Use Types Packs/Day Years [...] is your housing situation today? I have dvae king 07/22/[address] you [...] encounter Miscellaneous Notes * Telephone Encounter - Priya Fritz RN - 09/01/2024 10:02 AM EST Please review and advise, thank you ----- Message from Lisa Kenny sent at 08/31/2024 3:20 PM EST ----- Regarding: DME RX Contact: Jerry, On behalf of [facility]'s Care Management staff [facility], we are requesting Durable Medical Equipment (DME) for the pt .I can facilitate the ordering process through our approved vendor (such as [employer], [employer], etc.), but a prescription for the DME item(s) is needed. The DME item(s)requested are - Shower chair - Cane Kindly send the prescriptions to ([email or web address]) for processing the DME referral on behalf of the patient. Please also provide the patient's current Height and Weight. Should you have any inquiries regarding this request, feel free to contact me [phone]. Thank you for your assistance in this matter. * Telephone Encounter - Priya Fritz RN - 09/01/2024 10:02 AM EST ----- Message from Lisa Kenny sent at 08/31/2024 3:20 PM EST ----- Regarding: DME RX Contact: Jerry, On behalf of [facility]'s Care Management staff [facility], we are requesting Durable Medical Equipment (DME) for the pt .I can facilitate the ordering process through our approved vendor (such as [employer], [employer], etc.), but a prescription for the DME item(s) is needed. The DME item(s)requested are - Shower chair - Cane Kindly send the prescriptions to [email or web address]) for processing the DME referral on behalf of the patient. Please also provide the patient's current Height and Weight. Should you have any inquiries regarding this request, feel free to contact me [phone]. Thank you for your assistance in this matter. * Telephone Encounter - Thuy Nails - 08/22/2024 11:20 AM EST Tc from pt requesting to r/s pain management appointment from 08/23. Contact pt at [phone] documented in this encounter Plan of Treatment Upcoming Encounters Date Type Department Care Team (Late st Contact Info) Description 10/06/2024 10:00 AM EST Office Visit [facility] OPTOMETRY [address] [place], [place] [phone] Cindy Meek, ALBINA [address] [place] [address] 10/24/2024 9:00 AM EST Clinical Support [facility] MEDICINE [address] [place], [place] [phone] MarisaLauryn RN 11/14/2024 11:15 AM EST Office Visit [facility] MEDICINE [address] [place] [address] Sarah Verduzco DO [address] [place] [address] documented as of this encounter Visit Diagnoses Not on filedocumented in this encounter Additional Health Concerns Assessment Noted Time PHQ-9 Depression Total Score: 11 024 10:42 AM EDT documented as of this encounter Care Teams Stonework Tracer Relationship Specialty Start Date End Date Sarah Verduzco DO [address] [place] [address] PCP - General Family Medicine 11/21/15 documented as of this encounter
--- OUTSIDE RECORDS SUMMARY | 2024-10-05 15:31 | XMS_ITS | Encounter Summary ---
Author Organization [employer] Address [address] [facility] 7t [place] [address] Care Team Providers Care Scrum Project Manager Name Role Phone Sarah Verduzco DO Primary Care Provider + [phone] Reason for Visit * Reason Onset Date Comments Nurse Triage 09/26/2024 Encounter Details Date Type Department Care Team ([facility] st Contact Info) Description 09/26/2024 Telephone [facility] [address] [place], [place] [phone] Sarah Verduzco DO [address] [place], [place] [phone] Nurse Triage Social History Tobacco Use Types Packs/Day Years [...] encounter Miscellaneous Notes * Telephone Encounter - Tori Castillo RN - 09/26/2024 11:45 AM EST Called pt. No answer. Left message for pt. To call back [facility] nurses at [phone] and if this is an emergency, please call 911. RE: ? Head injury- severe back pain. Called pt. X2. Pt. States she had a biopsy last week of her neck and after her biopsy, she slipped and fell and hit her back and elbow. Pt. States that she has pain in the back of her head but she does not think she hit her head when she fell. Pt. also has sinus congestion , runny nose and cough. Feels feverish but, does not have a thermometer. Pt. Also has back pain residual from fall last week.Pt. States she is not nauseous, no dizziness, blind in one eye but otherwise no blurry vision. Pt. Speaking in clear sentences and alert and oriented x 3. Pt. States had MRI of head last week but that was prior to fall. Advised to go to ED or can come into walk in around 3pm but may have to wait for a while. Pt. States Does not mind waiting . Pt took pain medication last night with some relief but back is really hurting. Protocol Used: Back Injury (Adult) Protocol-Based Disposition: See in Office or Video Visit within 3 Days- advised pt. Walk in or ED. Video visit not offered Positive Triage Question: * Injury is still painful or swollen after 2 weeks * All higher-acuity triage questions were negative Care Advice Discussed: * Reassurance and Education - Bending or Twisting Injury (Strain, Sprain) * Reassurance and Education - Direct Blow (Contusion, Bruise) * Use a Cold Pack for Pain, Swelling, or Bruising * Use Heat on Area After 48 Hours * Avoid Heavy Lifting and Sports * Rest vs. Movement Protocol Used: Headache (Adult) Protocol-Based Disposition: See in Office or Video Visit Today or Tomorrow Video visit not offered Positive Triage Question: * Moderate headache (e.g., interferes with normal activities) present > 24 hours and unexplained * All higher-acuity triage questions were negative Care Advice Discussed: * Pain Medicines * Telephone Encounter - Eliud Hearn - 09/26/2024 11:26 AM EST Symptoms: Head Injury, Back Pain - Not From Injury, Elbow Pain - Not From Injury Outcome: Transfer to a nurse or provider NOW! Reason: Age over 30: sudden AND severe upper back pain The caller accepted this outcome. documented in this encounter Plan of Treatment Upcoming Encounters Date Type Department Care Team (Late st Contact Info) Description 10/06/2024 10:00 AM EST Office Visit [facility] [address] [place] [address] Cindy Meek, ALBINA 230 [place] [address] 10/24/2024 9:00 AM EST Clinical Support [facility] [address] [place] [address] Lauryn Cunningham RN 11/14/2024 11:15 AM EST Office Visit [facility] [address] [place] [address] Sarah Verduzco DO [address] [place] [address] documented as of this encounter Visit Diagnoses Not on filedocumented in this encounter Additional Health Concerns Assessment Noted Time PHQ-9 Depression Total Score: 11 05/04/ 024 10:42 AM EDT documented as of this encounter Care Teams Scrum Project Manager Relationship Specialty Start Date End Date Sarah Verduzco DO 230 [place] [address] PCP - General Family Medicine 11/21/15 documented as of this encounter
--- OUTSIDE RECORDS SUMMARY | 2024-10-05 15:31 | XMS_ITS | Encounter Summary ---
Author Organization [employer] Address [address] [facility] 7t [place] [address] Care Team Providers Care Supervisor Riprap Placing Name Role Phone Sarah Verduzco DO Primary Care Provider + [phone] Reason for Visit * Reason Onset Date Comments Appointment Request 04/04/2024 Encounter Details Date Type Department Care Team ([facility] Contact Info) Description 04/04/2024 Telephone [facility] MEDICINE [address] [place], [place] [phone] Sarah Verduzco DO 230 [place], [place] [phone] Appointment Request Social History Tobacco Use Types Packs/Day Years Used Date Smoking Tobacco: Never Passive Smoke Exposure: Current Smokeless Tobacco: Never Alcohol Use Standard Drinks/Week Comments Never 0 (1 standard drink = 0.6 oz pur e alcohol) Depression Answer Date Recorded Patient Health Questionnaire-9 Score 24 05/19/2023 Housing Stability Answer Date Recorded What is your housing situation today? I have dave king 06/29/[address] you li ve. Do you have problems with any of the following? None of the above 06/29/2023 Food Insecurity Answer Date Recorded Within the past 12 months, y ou worried that your food would run out before you got money to buy more: Never True 06/29/2023 Within the past 12 months,th e food you bought just didn't last and you didn't have enough money to get more: Never True Transportation Answer Date Recorded In the past 12 months, has l ack of transportation kept you from medical appts, meetings, work or from getting things needed for daily living? No 06/29/2023 Utilities Answer Date Recorded In the past 12 months, has t he electric, gas, oil or water company threatened to shut off services in your home? No 06/29/2023 Depression Answer Date Recorded Patient Health Questionnaire-2 Score 6 05/19/2023 Comments Unknown Sex and Gender Information Value Date Recorded Sex Assigned at Female 07/14/2022 10:29 AM EDT Legal Sex Female 10:29 AM EDT Gender Identity Female 07/14/2022 10:29 AM EDT Sexual Orientation Don't know 07/14/2022 10 :29 AM EDT documented as of this encounter Miscellaneous Notes * Telephone Encounter - Martinmaine Diggs - 04/04/2024 11:04 AM EDT Tc from pt requesting to reschedule tomorrows pain management appt 04/05. Please contact pt at [phone]. documented in this encounter Plan of Treatment Upcoming Encounters Date Type Department Care Team (Late st Contact Info) Description 10/06/2024 10:00 AM EST Office Visit [facility] [address] [place] [address] Cindy Meek, OD 230 [place] [address] 10/24/2024 9:00 AM EST Clinical Support [facility] [address] [place] [address] Lauryn Cunningham RN 11/14/2024 11:15 AM EST Office Visit [facility] [address] [place] [address] Sarah Verduzco DO [address] [place] [address] documented as of this encounter Visit Diagnoses Not on filedocumented in this encounter Additional Health Concerns Assessment Noted Time PHQ-9 Depression Total Score: 24 023 8:54 AM EDT documented as of this encounter Care Teams Supervisor Riprap Placing Relationship Specialty Start Date End Date Sarah Verduzco DO [address] [place] [address] PCP - General Family Medicine 11/21/15 documented as of this encounter
--- OUTSIDE RECORDS SUMMARY | 2024-10-05 15:31 | XMS_ITS | Encounter Summary ---
Author Organization [employer] Address [address] [facility] 7t [place] [address] Care Team Providers Care Box Blank Machine Operator Helper Name Role Phone Sarah Verduzco DO Primary Care Provider + [phone] Reason for Visit * Reason Comments Med Refill Encounter Details Date Type Department Care Team ([facility] Contact Info) Description 03/31/2024 Refill [facility] MED[facility]INE [address] [place], [place] [phone] Sarah Verduzco DO 230 [place], [place] [phone] Social History Tobacco Use Types Packs/Day Years [...] Description 10/06/2024 10:00 AM EST Office Visit [facility] [address] [place] [address] Cindy Meek, OD 230 [place] [address] 10/24/2024 9:00 AM EST Clinical Support [facility] [address] [place] [address] Lauryn Cunningham, LUISITO 11/14/2024 11:15 AM EST Office Visit [address] [address] Sarah Verduzco DO [address] [place] [address] documented as of this encounter Visit Diagnoses Not on filedocumented in this encounter Additional Health Concerns Assessment Noted Time PHQ-9 Depression Total Score: 24 023 8:54 AM EDT documented as of this encounter Care Teams Box Blank Machine Operator Helper Relationship Specialty Start Date End Date Sarah Verduzco DO [address] [place] [address] PCP - General Family Medicine 11/21/15 documented as of this encounter
--- OUTSIDE RECORDS SUMMARY | 2024-10-05 15:31 | XMS_ITS | Encounter Summary ---
Author Organization [employer] Address [address] [facility] [address] 7t [place] [address] Care Team Providers Care Roller Skate Repairer Name Role Phone DaxSarah Primary Care Provider + [phone] Encounter Details Date Type Department Care Team ([facility] Contact Info) Description 09/21/2024 Orders Only GENERIC EXTERNAL DATA DEPARTMENT Provider, Generic External Data Social History Tobacco Use Types Packs/Day Years [...] 10:00 AM EST Office Visit [facility] [address] [place] [address] Cindy Meek, OD 230 [place] [address] 10/24/2024 9:00 AM EST Clinical Support [facility] MEDICINE [address] [place] [address] Lauryn Cunningham RN 11/14/2024 11:15 AM EST Office Visit [facility] [address] [place] [address] Sarah Verduzco DO 230 [place] [address] documented as of this encounter Procedures Procedure Name Priority Date/Time Associated Diagnosis Comments CELL BLOCK Routine 09/21/2024 8:19 AM EST documented in this encounter Results * Cell Block (09/21/2024 8:19 AM EST) 09/21/2024 8:19 AM EST 09/21/2024 11:55 AM EST [facility] - 09/26/2024 6:23 PM EST ----- ------- Name: Miryam Fan ? Age/Sex: 58/F ? : 1965 Unit#: [id number] ?? Attend Dr: Noreen Salazar MD ?Re09/21/24 ?Status: DEP REF ? Location: HO.US ? Disch: ? ----- ------- SPEC : [id number] ?RECD: 09/21/24-1154 ? STATUS: ??SOUT ? REQ NUM: [id number] ? PILI: 09/21/24-818 ? SUBM DR: Noreen Salazar MD ? ENTERED: ??09/21/24-6683 ?SP TYPE: Cytology ? OTHR DR: Sarah Verduzco DO ? ORDERED: ??Cell Block, Fine Ndl Asp ? Diagnosis ?? Thyroid, left superior nodule, fine needle aspiration biopsy (cytology and cell block): ? -Westley System Classification:? Benign (category 2) ? -Description:? [...] Copies To: ?? Sarah Verduzco DO ?? [facility] ?? [address] ?? [place] [address] ?? [phone] ?? Noreen Salazar MD ?? [facility] Endocrinology ?? [address] [address] ?? [place] [address] ?? [phone] ?? [email or web address] ----- ------- Signed (signature on file) Tammy Velasquez 09/26/24 1823 ? ----- ------- ? END OF REPORT ? us Generic External Data Provider LAB CYTOLOGY ORDE RABLES Final Result [facility] [address] [place] [address] [phone] documented in this encounter Visit Diagnoses Not on filedocumented in this encounter Additional Health Concerns Assessment Noted Time PHQ-9 Depression Total Score: 11 05/04/ 024 10:42 AM EDT documented as of this encounter Care Teams Roller Skate Repairer Relationship Specialty Start Date End Date Sarah Verduzco DO [address] [place] [address] PCP - General Family Medicine 11/21/15 documented as of this encounter
--- OUTSIDE RECORDS SUMMARY | 2024-10-05 15:31 | XMS_ITS | Encounter Summary ---
Author Organization [employer] Address 75 [facility] 7t [place] [address] Care Team Providers Care Wash Rack Operator Name Role Phone Sarah Verduzco DO Primary Care Provider + [phone] Reason for Referral * Imaging (Routine) - Authorized Specialty Diagnoses / Procedures Referred By Contac t Referred To Contact Radiology Diagnoses RLQ abdominal pain Procedures US Abdomen Limited Layne Guzman ANP [address] [place] [address] Phone: tel: fax: [address] Phone: tel: fax: Referral ID Status Reason Start Date Expiration Date V isits Requested Visits Authorized [id number] Authorized 09/26/2024 09/26/2025 1 1 Reason for Visit * Reason Comments UTI Encounter Details Date Type Department Care Team (Late st Contact Info) Description 09/26/2024 3:40 PM EST Office Visit [facility] [address] [place], [place] [phone] Layne Guzman ANP [address] [place], [place] [phone] Acute cystitis with hematuria (Primary Dx); Increased frequency of urination; Chronic neck pain; Chronic bilateral low back pain without sciatica; RLQ abdominal pain Social History Tobacco Use Types Packs/Day Years [...] AM EDT documented as of this encounter Last Filed Vital Signs Vital Sign Reading Time Taken Comments Blood Pressure 116/77 09/26/2024 4:02 PM EST Pulse 85 09/26/2024 4:02 PM EST Temperature 36.8 ??C (98.3 ??F) 09/26/2024 4:02 PM ES T Respiratory Rate 16 09/26/2024 4:02 PM EST Oxygen Saturation 99% 09/26/2024 4:02 PM EST Inhaled Oxygen Concentration - - Weight 59 kg (130 lb) 09/26/2024 4:02 PM EST Height - - Body Mass Index 26.26 07/22/2024 12:09 PM EST documented in this encounter Progress Notes * MERCEDEZ Sanches - 09/26/2024 3:40 PM EST Subjective Patient ID: Miryam Fan is a 58 y.o. female who presents for UTI and body pain s/p fall. HPI States she had a biopsy last week of her neck and after her biopsy, she slipped and fell and hit her back and elbow. Pt. States that she has pain in the back of her head but she does not think she hit her head when she fell. Pt. also has sinus congestion , runny nose and cough. Feels feverish but,does not have a thermometer. Pt. Also has back pain residual from fall last week. Pt. States she isnot nauseous, no dizziness, blind in one eye but otherwise no blurry vision. Pt. Speaking in clear sentences and alert and oriented x 3. Pt. States had MRI of head last week but that was prior to fall. Fell on Thursday, slipped backwards and possibly hit head. No LOC. Was witnessed by sister. Has soreness in low back, abdomen, neck. Supposed to do PT for her neck, was told to see her PCP office s/pfall. Notes that she has pain and a sensation like a ball in her right lower quadrant that when she feelsit she has to massage the area and the pain goes away. She notes that it is worse when she sits up or when she is trying to move. Also has nasal congestion since or Thursday. Feels feverish but does not have thermometer. No cough or shortness of breath. Noticed her urine has a strong smell and is blurry. Says she has frequent UTIs. Drinks 3 bottles water daily. Denies constipation. Merkel chills, does not have thermometer. Last UTI in July, cx E. Coli susceptible to cefazolin, cefepime, ceftriaxone, gent, macrobid. No hernia on RLQ or R mid abd on exam but will check US Non-smoker Review of Systems Objective BP 116/77 (BP Location: Right arm, Patient Position: Sitting, BP Cuff Size: Adult) Pulse 85 Temp 98.3 ??F (36.8 ??C) (Oral) Resp 16 Wt 130 lb (59 kg) SpO2 99% BMI 26.26 kg/m?? Physical Exam Constitutional: General: She is not in acute distress. Appearance: Normal appearance. She is not ill-appearing. HENT: Head: Normocephalic and atraumatic. Eyes: General: No scleral icterus. Extraocular Movements: Extraocular movements intact. Neck: Comments: ROM mildly limited by pain. Tenderness to palpation posterior neck and upper back/trapezius bilaterally. Cardiovascular: Rate and Rhythm: Normal rate and regular rhythm. Pulmonary: Effort: Pulmonary effort is normal. No accessory muscle usage or respiratory distress. Abdominal: General: Bowel sounds are normal. Palpations: Abdomen is soft. Tenderness: There is no abdominal tenderness. Hernia: No hernia is present. Lymphadenopathy: Cervical: No cervical adenopathy. Neurological: Mental Status: She is alert and oriented to person, place, and time. Cranial Nerves: No cranial nerve deficit. Coordination: Coordination normal. Gait: Gait normal. Psychiatric: Mood and Affect: Mood normal. Behavior: Behavior normal. Assessment/Plan Diagnoses and all orders for this visit: Acute cystitis with hematuria Comments: Will Rx Macrobid given last culture. Send out for confirmation. Let us know if any worsening symptoms or fever, chills, flank pain. Push fluids. Orders: - nitrofurantoin, macrocrystal-monohydrate, (Macrobid) 100 MG capsule; Take 1 capsule (100 mg) by mouth 2 times daily for 5 days. Increased frequency of urination - POCT Urinalysis - Culture, Urine, Routine Chronic neck pain Comments: Acute on chronic. Plan as below continue with PT as recommended previously by specialist. Chronic bilateral low back pain without sciatica Comments: Acute on chronic. Recommend she continue to use heat, acetaminophen, baclofen, stretching. RLQ abdominal pain Comments: Did not feel hernia or mass on exam but will check ultrasound Orders: - US Abdomen Limited; Future documented in this encounter Miscellaneous Notes * Result Encounter Note - MERCEDEZ Sanches - 09/26/2024 3:40 PM EST Macrobid susceptible UTI, rx'd at visit. documented in this encounter Plan of Treatment Upcoming Encounters Date Type Department Care Team (Late st Contact Info) Description 10/06/2024 10:00 AM EST Office Visit [facility] [address] [place] [address] Fantasma, Cindy, OD [address] [place] [address] 10/24/2024 9:00 AM EST Clinical Support [facility] [address] [place] [address] Lauryn Cunningham RN 11/14/2024 11:15 AM EST Office Visit [facility] [address] [place] [address] Sarah Verduzco DO [address] [place] [address] Scheduled Orders Name Type Priority Associated Diagnoses Orde r Schedule US Abdomen Limited Imaging Routine RLQ abdominal pain Expected: 09/26/2024, Expires: 09/26/2025 documented as of this encounter Procedures Procedure Name Priority Date/Time Associated Diagnosis Comments CULTURE, URINE, ROUTINE Routine 09/26/2024 3:58 PM EST Increased frequency of urination POCT URINALYSIS DIPSTICK Routine 09/26/2024 2:43 PM EST Increased frequency of urination documented in this encounter Results * Culture, Urine, Routine (09/26/2024 3:58 PM EST) Urine Urine specimen obtained by clean catch procedure / Unknown 09/26/2024 3:58 PM EST 09/27/2024 11:22 AM EST Comment:[facility] - 09/29/2024 7:48 AM EST Escherichia coli Quant > 100,000 cfu/mL Escherichia coli: Ampicillin >=32(R) Escherichia coli: Cefazolin <=1(S) Escherichia coli: Cefepime <=0.12(S) Escherichia coli: Ceftriaxone <=0.25(S) Escherichia coli: Ciprofloxacin 1(R) Escherichia coli: Gentamicin <=1(S) Escherichia coli: Nitrofurantoin <=16(S) Escherichia coli: Trimethoprim/Sulfamethoxazole >=320(R) Specimen Source: Urine clean catch us Layne Guzman ANP LAB MICROBIOLOGY - GENERAL ORDER ZACH Final Result [facility] [address] [place] [phone] * (ABNORMAL) POCT Urinalysis (09/26/2024 2:43 PM EST) Color, UA Yellow Clarity, UA Clear Glucose, UA Negative Bilirubin, UA Negative Ketones, UA Negative Spec Grav, UA 1.010 Blood, UA Positive(A) Negative, None Detected Comment:moderate pH, UA 6.0 Protein, UA Negative Urobilinogen, UA 0.2 Leukocytes, UA Trace Negative, Rare, Trace Nitrite, UA Positive(A) Negative, None Detected Urine 09/26/2024 2:43 PM EST us Layne Guzman ANP POINT OF CARE TEST ENTER/EDIT OR DERABLES Final Result documented in this encounter Visit Diagnoses Diagnosis Acute cystitis with hematuria- Primary Increased frequency of urination Urinary frequency Chronic neck pain Cervicalgia Chronic bilateral low back pain without sciatica RLQ abdominal pain Abdominal pain, right lower quadrant documented in this encounter Additional Health Concerns Assessment Noted Time PHQ-9 Depression Total Score: 11 024 10:42 AM EDT documented as of this encounter Care Teams Wash Rack Operator Relationship Specialty Start Date End Date Sarah Verduzco DO [address] [place] [address] PCP - General Family Medicine 11/21/15 documented as of this encounter
--- OUTSIDE RECORDS SUMMARY | 2024-10-05 15:31 | XMS_ITS | Encounter Summary ---
Author Organization [employer] Address [address] [facility] 7t [place] [address] Care Team Providers Care Enhanced Environmental Operator Name Role Phone Sarah Verduzco DO Primary Care Provider + [phone] Reason for Visit * Reason Comments Med Refill Encounter Details Date Type Department Care Team ([facility] Contact Info) Description 04/06/2024 Refill [facility] MEDICINE [address] [place], [place] [phone] Sarah Verduzco DO 230 [place], [place] [phone] Social History Tobacco Use Types Packs/Day Years [...] [facility] OPTOMETRY [address] [place] [address] Cindy Meek, OD [address] [place] [address] 10/24/2024 9:00 AM EST Clinical Support [facility] MEDICINE [address] [place] [address] Lauryn Cunningham, LUISITO 11/14/2024 11:15 AM EST Office Visit [address] [address] Sarah Verduzco DO [address] [place] [address] documented as of this encounter Visit Diagnoses Not on filedocumented in this encounter Additional Health Concerns Assessment Noted Time PHQ-9 Depression Total Score: 24 023 8:54 AM EDT documented as of this encounter Care Teams Enhanced Environmental Operator Relationship Specialty Start Date End Date Sarah Verduzco DO [address] [place] [address] PCP - General Family Medicine 11/21/15 documented as of this encounter
--- OUTSIDE RECORDS SUMMARY | 2024-10-05 15:31 | XMS_ITS | Encounter Summary ---
Author Organization [employer] Address [address] [facility] [address] [place] [address] Care Team Providers Care Sports Marketing Coordinator Name Role Phone Sarah Verduzco DO Primary Care Provider + [phone] Reason for Visit * Reason Onset Date Comments Med Refill 09/26/2024 Encounter Details Date Type Department Care Team (Late st Contact Info) Description 09/26/2024 Refill [facility] MEDICINE [address] [place], [place] [phone] Sarah Verduzco DO 230 [place], [place] [phone] Chronic bilateral low back pain with left-sided sciatica (Primary Dx) Social History Tobacco Use Types Packs/Day Years [...] encounter Miscellaneous Notes * Telephone Encounter - Eliud Hearn - 09/26/2024 11:27 AM EST TC from pt requesting medication refill. Medications needing refill : oxyCODONE-acetaminophen (Percocet) 5-325 MG tablet To be sent to: [id number] [address] [place] [facility] documented in this encounter Plan of Treatment Upcoming Encounters Date Type Department Care Team (Late st Contact Info) Description 10/06/2024 10:00 AM EST Office Visit [facility] [address] [place] [address] Cindy Meek, OD [address] [place] [address] 10/24/2024 9:00 AM EST Clinical Support [facility] [address] [place] [address] Lauryn Cunningham, RN 11/14/2024 11:15 AM EST Office Visit [facility] [address] [place] [address] Sarah Verduzco DO [address] [place] [address] documented as of this encounter Visit Diagnoses Diagnosis Chronic bilateral low back pain with left-sided sciatica- Primary documented in this encounter Additional Health Concerns Assessment Noted Time PHQ-9 Depression Total Score: 11 024 10:42 AM EDT documented as of this encounter Care Teams Sports Marketing Coordinator Relationship Specialty Start Date End Date Sarah Verduzco DO [address] [place] [address] PCP - General Family Medicine 11/21/15 documented as of this encounter
--- OUTSIDE RECORDS SUMMARY | 2024-10-05 15:31 | XMS_ITS | Encounter Summary ---
Author Organization [employer] Address 75 [facility] 7t [place] [address] Care Team Providers Care Labor Crew Supervisor Name Role Phone Sarah Verduzco DO Primary Care Provider + [phone] Reason for Visit * Reason Comments Med Refill Encounter Details Date Type Department Care Team ([facility] Contact Info) Description 08/21/2024 Refill [facility] MEDICINE 230 [place], [place] [phone] Sarah Verduzco DO 230 [place], [place] [phone] Social History Tobacco Use Types Packs/Day Years [...] Description 10/06/2024 10:00 AM EST Office Visit [facility] OPTOMETRY [address] [place] [address] Cindy Meek, OD 230 [place] [address] 10/24/2024 9:00 AM EST Clinical Support [facility] MEDICINE [address] [place] [address] Lauryn Cunningham, LUISITO 11/14/2024 11:15 AM EST Office Visit [facility] MEDICINE [address] [place] [address] Sarah Verduzco DO 230 [place] [address] documented as of this encounter Visit Diagnoses Not on filedocumented in this encounter Additional Health Concerns Assessment Noted Time PHQ-9 Depression Total Score: 11 024 10:42 AM EDT documented as of this encounter Care Teams Labor Crew Supervisor Relationship Specialty Start Date End Date Sarah Verduzco DO [address] [place] [address] PCP - General Family Medicine 11/21/15 documented as of this encounter
--- OUTSIDE RECORDS SUMMARY | 2024-10-05 15:32 | XMS_ITS | Encounter Summary ---
Author Organization [employer] Address 75 [facility] 7t [place] [address] Care Team Providers Care Early Morning Babysitter Name Role Phone Sarah Verduzco DO Primary Care Provider + [phone] Reason for Visit * Reason Onset Date Comments Nurse Triage 07/20/2023 Encounter Details Date Type Department Care Team ([facility] st Contact Info) Description 07/20/2023 Telephone [facility] MEDICINE 230 [place], [place] [phone] Sarah Verduzco DO 230 [place], [place] [phone] Nurse Triage Social History Tobacco Use Types Packs/Day Years Used Date Smoking Tobacco: Never Smokeless Tobacco: Never Alcohol Use Standard [...] encounter Miscellaneous Notes * Telephone Encounter - Alexa Solis RN - 07/20/2023 2:30 PM EST Triage call Pt reports pain with urination and has to apply pressure to lower abdomen in order to void. Pt reports this started yesterday and Pt has had chronic UTI s . Pt reports some low back pain,odor and just difficulty urinating. Pt is advised to increase fluid intake to 8 glasses/day and include cranberry juice Pt agrees. Advised to come to [facility] today to be seen by provider and Pt agrees. Protocol Used: Urinary Symptoms (Adult) Protocol-Based Disposition: See in Office or Video Visit Today Video visit offer not recorded Positive Triage Questions: * Side (flank) or lower back pain present * Bad or foul-smelling urine * Urinating more frequently than usual (i.e., frequency) * Can't control passage of urine (i.e., urinary incontinence) and new-onset (< 2 weeks) or worsening * All higher-acuity triage questions were negative Care Advice Discussed: * Reasons To Call Back - Fever occurs - Pain or burning with urination - Unable to urinate and bladder feels full - You become worse * Telephone Encounter - Rochelle Garzon - 07/20/2023 2:15 PM EST Symptom: Urine Symptoms Outcome: Schedule an urgent appointment (within 1 hour) or talk to a nurse or provider soon Reason: Can't pass urine (can't pee) The caller accepted this outcome Please contact pt at [phone] documented in this encounter Plan of Treatment Upcoming Encounters Date Type Department Care Team (Late st Contact Info) Description 10/06/2024 10:00 AM EST Office Visit [facility] OPTOMETRY [address] [place] [address] Cindy Meek, OD 230 [place] [address] 10/24/2024 9:00 AM EST Clinical Support [facility] MEDICINE 230 [place], [place] [phone] Lauryn Cunningham, LUISITO 11/14/2024 11:15 AM EST Office Visit [facility] MEDICINE [address] [place] [address] Sarah Verduzco DO 230 [place] [address] documented as of this encounter Visit Diagnoses Not on filedocumented in this encounter Additional Health Concerns Assessment Noted Time PHQ-9 Depression Total Score: 24 023 8:54 AM EDT documented as of this encounter Care Teams Early Morning Babysitter Relationship Specialty Start Date End Date Sarah Verduzco DO 230 [place], [place] [phone] PCP - General Family Medicine 11/21/15 documented as of this encounter
--- OUTSIDE RECORDS SUMMARY | 2024-10-05 15:32 | XMS_ITS | Encounter Summary ---
Author Organization [employer] Address 75 [facility] 7t [place] [address] Care Team Providers Care Loss Prevention Auditor Name Role Phone Sarah Verduzco DO Primary Care Provider + [phone] Reason for Visit * Reason Comments Med Refill Encounter Details Date Type Department Care Team ([facility] Contact Info) Description 08/20/2023 Refill [facility] MEDICINE 230 [place], [place] [phone] Sarah Verduzco DO 230 [place] [address] Chronic neck pain Social History Tobacco Use Types Packs/Day [...] encounter Miscellaneous Notes * Telephone Encounter - Emely Velásquez RN - 08/31/2023 11:48 AM EST Referral faxed for CEMET[employer] VAULT INSTALLER services to , per provider request. documented in this encounter Plan of Treatment Upcoming Encounters Date Type Department Care Team (Late st Contact Info) Description 10/06/2024 10:00 AM EST Office Visit [facility] OPTOMETRY [address] [place] [address] Fantasma, Cindy, OD 230 [place] [address] 10/24/2024 9:00 AM EST Clinical Support [facility] MEDICINE 230 [place] [address] Lauryn Cunningham RN 11/14/2024 11:15 AM EST Office Visit [facility] MEDICINE [address] [place] [address] Sarah Verduzco DO 230 [place] [address] documented as of this encounter Visit Diagnoses Diagnosis Chronic neck pain Cervicalgia documented in this encounter Additional Health Concerns Assessment Noted Time PHQ-9 Depression Total Score: 24 023 8:54 AM EDT documented as of this encounter Care Teams Loss Prevention Auditor Relationship Specialty Start Date End Date Sarah Verduzco DO [address] [place] [address] PCP - General Family Medicine 11/21/15 documented as of this encounter
--- OUTSIDE RECORDS SUMMARY | 2024-10-05 15:32 | XMS_ITS | Encounter Summary ---
Author Organization [employer] Address 75 [facility] 7t [place] [address] Care Team Providers Care Starch Treating Assistant Name Role Phone Sarah Verduzco DO Primary Care Provider + [phone] Reason for Visit * Reason Comments Med Refill Encounter Details Date Type Department Care Team ([facility] Contact Info) Description 06/20/2023 Refill [facility] MEDICINE 230 [place], [place] [phone] Sarah Verduzco DO 230 [place] [address] Chronic neck pain Social History Tobacco Use Types Packs/Day Years Used Date Smoking Tobacco: Never Smokeless Tobacco: Never Alcohol Use Standard Drinks/Week Comments Never 0 (1 standard drink = 0.6 oz pur e alcohol) Depression Answer Date Recorded Patient Health Questionnaire-9 Score 24 05/19/2023 Housing Stability Answer Date Recorded What is your housing situation today? I have dave king 06/20/[address] you li ve. Do you have problems with any of the following? None of the above 06/20/2023 Food Insecurity Answer Date Recorded Within the past 12 months, y ou worried that your food would run out before you got money to buy more: Never True 06/20/2023 Within the past 12 months,th e food you bought just didn't last and you didn't have enough money to get more: Never True 03/2023 Transportation Answer Date Recorded In the past 12 months, has l ack of transportation kept you from medical appts, meetings, work or from getting things needed for daily living? No 06/20/2023 Utilities Answer Date Recorded In the past 12 months, has t he electric, gas, oil or water company threatened to shut off services in your home? No 06/20/2023 Depression Answer Date Recorded Patient Health Questionnaire-2 [...] Description 10/06/2024 10:00 AM EST Office Visit [facility] OPTOMETRY [address] [place], [place] [phone] Cindy Meek, OD 230 [place] [address] 10/24/2024 9:00 AM EST Clinical Support [facility] MEDICINE 230 [place] [address] Lauryn Cunningham, LUISITO 11/14/2024 11:15 AM EST Office Visit [address] [address] Sarah Verduzco DO 230 [place] [address] documented as of this encounter Visit Diagnoses Diagnosis Chronic neck pain Cervicalgia documented in this encounter Additional Health Concerns Assessment Noted Time PHQ-9 Depression Total Score: 24 023 8:54 AM EDT documented as of this encounter Care Teams Starch Treating Assistant Relationship Specialty Start Date End Date Sarah Verduzco DO 230 [place] [address] PCP - General Family Medicine 11/21/15 documented as of this encounter
--- OUTSIDE RECORDS SUMMARY | 2024-10-05 15:32 | XMS_ITS | Encounter Summary ---
Author Organization [employer] Address [address] [facility] [address] 7[address] [place] [address] Care Team Providers Care Tractor Driver Name Role Phone Sarah Verduzco DO Primary Care Provider + [phone] Encounter Details Date Type Department Care Team ([facility] st Contact Info) Description 07/27/2023 Telephone [facility] MEDICINE 230 [place], [place] [phone] Sarah Verduzco DO 230 [place], [place] [phone] Social History Tobacco Use Types Packs/Day Years [...] Description 10/06/2024 10:00 AM EST Office Visit [facility] OPTOMETRY [address] [place], [place] [phone] Cindy Meek, OD 230 [place] [address] 10/24/2024 9:00 AM EST Clinical Support [facility] MEDICINE 230 [place] [address] Lauryn Cunningham, LUISITO 11/14/2024 11:15 AM EST Office Visit [facility] MEDICINE [address] [place] [address] Sarah Verduzco DO 230 [place] [address] documented as of this encounter Visit Diagnoses Not on filedocumented in this encounter Additional Health Concerns Assessment Noted Time PHQ-9 Depression Total Score: 24 023 8:54 AM EDT documented as of this encounter Care Teams Tractor Driver Relationship Specialty Start Date End Date Sarah Verduzco DO 230 [place] [address] PCP - General Family Medicine 11/21/15 documented as of this encounter
--- OUTSIDE RECORDS SUMMARY | 2024-10-05 15:32 | XMS_ITS | Encounter Summary ---
Author Organization [employer] Address [address] [facility] [address] [place] [address] Care Team Providers Care Director Prison Name Role Phone DaxSarah Primary Care Provider + [phone] Encounter Details Date Type Department Care Team (Late st Contact Info) Description 12/22/2023 Orders Only [facility] MEDICINE 230 [place] [address] ProviderTristan MD Social History Tobacco Use Types Packs/Day Years [...] Description 10/06/2024 10:00 AM EST Office Visit [facility] OPTOMETRY [address] [place] [address] Fantasma, Cindy, OD 230 [place] [address] 10/24/2024 9:00 AM EST Clinical Support [facility] MEDICINE 230 [place], [place] [phone] Lauryn Cunningham RN 11/14/2024 11:15 AM EST Office Visit [facility] MEDICINE [address] [place] [address] Sarah Verduzco DO 230 [place] [address] documented as of this encounter Procedures Procedure Name Priority Date/Time Associated Diagnosis Comments HM COLONOSCOPY Routine 03/24/2017 8:58 AM EDT documented in this encounter Results * Hm Colonoscopy (03/24/2017 8:58 AM EDT) Historical Provider HEALTH MAINTENANCE Final Result documented in this encounter Visit Diagnoses Not on filedocumented in this encounter Additional Health Concerns Assessment Noted Time PHQ-9 Depression Total Score: 24 023 8:54 AM EDT documented as of this encounter Care Teams Director Prison Relationship Specialty Start Date End Date Sarah Verduzco DO 230 [place] [address] PCP - General Family Medicine 11/21/15 documented as of this encounter
--- OUTSIDE RECORDS SUMMARY | 2024-10-05 15:32 | XMS_ITS | Encounter Summary ---
Author Organization [employer] Address 75 [facility] 7t [place] [address] Care Team Providers Care Auto Body Mechanic Apprentice Name Role Phone Sarah Verduzco DO Primary Care Provider + [phone] Reason for Visit * Reason Onset Date Comments Nurse Triage 11/16/2023 Encounter Details Date Type Department Care Team ([facility] st Contact Info) Description 11/16/2023 Telephone [facility] MEDICINE 230 [place], [place] [phone] Sarah Verduzco DO 230 [place], [place] [phone] Nurse Triage Social History Tobacco Use Types [...] Telephone Encounter - Alexa Solis RN - 11/16/2023 11:15 AM EST Triage call Pt reports low back pain which has been chronic. Pt reports receiving an injection a month ago which has not been effective for pain control. Pt has tramadol at home for pain but, hasn't taken due to an odor, the pills smell like some kind of fabreze so I don't want to take them . Pt is advised to bring with to appt tomorrow . Pt agrees. Pt does take tylenol and it helps a little . Pt is asking what the results of MRI are also. Pt is advised to go to nursing desk red team when in for appt tomorrow to ask for earlier appt. No available apts in office at this time. [facility] to [facility] . Pt agrees with this plan . Protocol Used: Back Pain (Adult) Protocol-Based Disposition: See in Office or Video Visit within 2 Weeks Video visit not offered Positive Triage Question: * Back pain is a chronic symptom (recurrent or ongoing AND lasting > 4 weeks) * All higher-acuity triage questions were negative Care Advice Discussed: * Reassurance and Education - Back Pain * Cold or Heat * Sleep * Activity * Pain Medicines * Pain Medicines - Extra Notes and Warnings * Reasons To Call Back - Fever occurs - Numbness or weakness occurs, or bowel/bladder problems - Pain begins to shoot into the leg - Pain persists over 2 weeks - Pain becomes worse - You become worse * Telephone Encounter - Farzaneh Ybarra - 11/16/2023 10:47 AM EST Symptom: Back Pain - Not From Injury Outcome: Schedule an appointment to be seen within 3 days Reason: Caller denied all higher acuity questions The caller accepted this outcome documented in this encounter Plan of Treatment Upcoming Encounters Date Type Department Care Team (Late st Contact Info) Description 10/06/2024 10:00 AM EST Office Visit [facility] OPTOMETRY [address] [place] [address] Cindy Meek, OD 230 [place] [address] 10/24/2024 9:00 AM EST Clinical Support [facility] MEDICINE 230 [place] [address] Lauryn Cunningham, LUISITO 11/14/2024 11:15 AM EST Office Visit [facility] MEDICINE 230 [place] [address] Sarah Verduzco DO 230 [place] [address] documented as of this encounter Visit Diagnoses Not on filedocumented in this encounter Additional Health Concerns Assessment Noted Time PHQ-9 Depression Total Score: 24 023 8:54 AM EDT documented as of this encounter Care Teams Auto Body Mechanic Apprentice Relationship Specialty Start Date End Date Sarah Verduzco DO 230 [place] [address] PCP - General Family Medicine 11/21/15 documented as of this encounter
--- OUTSIDE RECORDS SUMMARY | 2024-10-05 15:32 | XMS_ITS | Encounter Summary ---
Author Organization [employer] Address 75 [facility] 7t [place] [address] Care Team Providers Care Equipment Or Machinery Cleaner Name Role Phone Sarah Verduzco DO Primary Care Provider + [phone] Reason for Visit * Reason Comments Med Refill Encounter Details Date Type Department Care Team ([facility] Contact Info) Description 09/08/2023 Refill [facility] MEDICINE 230 [place], [place] [phone] Sarah Verduzco DO 230 [place] [address] Social History Tobacco Use Types Packs/Day Years [...] Description 10/06/2024 10:00 AM EST Office Visit [facility] OPTOMETRY [address] [place] [address] Cindy Meek, OD 230 [place] [address] 10/24/2024 9:00 AM EST Clinical Support [facility] MEDICINE 230 [place] [address] Lauryn Cunningham, LUISITO 11/14/2024 11:15 AM EST Office Visit [address] [address] Sarah Verduzco DO 230 [place] [address] documented as of this encounter Visit Diagnoses Not on filedocumented in this encounter Additional Health Concerns Assessment Noted Time PHQ-9 Depression Total Score: 24 023 8:54 AM EDT documented as of this encounter Care Teams Equipment Or Machinery Cleaner Relationship Specialty Start Date End Date Sarah Verduzco DO 230 [place] [address] PCP - General Family Medicine 11/21/15 documented as of this encounter
--- OUTSIDE RECORDS SUMMARY | 2024-10-05 15:32 | XMS_ITS | Encounter Summary ---
Author Organization [employer] Address 75 [facility] 7t [place] [address] Care Team Providers Care Security Management Specialist Name Role Phone Sarah Verduzco DO Primary Care Provider + [phone] Reason for Visit * Reason Comments Med Refill Encounter Details Date Type Department Care Team ([facility] Contact Info) Description 01/05/2024 Refill [facility] MEDICINE 230 [place], [place] [phone] Sarah Verduzco DO 230 [place], [place] [phone] Social History Tobacco Use Types Packs/Day Years [...] Description 10/06/2024 10:00 AM EST Office Visit [facility] OPTOMETRY [address] [place] [address] Cindy Meek, OD 230 [place] [address] 10/24/2024 9:00 AM EST Clinical Support [facility] MEDICINE [address] [place] [address] Laruyn Cunningham, LUISITO 11/14/2024 11:15 AM EST Office Visit [address] [address] Sarah Verduzco DO 230 [place] [address] documented as of this encounter Visit Diagnoses Not on filedocumented in this encounter Additional Health Concerns Assessment Noted Time PHQ-9 Depression Total Score: 24 023 8:54 AM EDT documented as of this encounter Care Teams Security Management Specialist Relationship Specialty Start Date End Date Sarah Verduzco DO 230 [place] [address] PCP - General Family Medicine 11/21/15 documented as of this encounter
--- OUTSIDE RECORDS SUMMARY | 2024-10-05 15:32 | XMS_ITS | Encounter Summary ---
Author Organization [employer] Address 75 [facility] 7t [place] [address] Care Team Providers Care Loading Rack Supervisor Name Role Phone Sarah Verduzco DO Primary Care Provider + [phone] Reason for Visit * Reason Comments Med Refill Encounter Details Date Type Department Care Team (Late Contact Info) Description 04/19/2023 Refill [facility] MEDICINE 230 [place], [place] [phone] Sarah Verduzco DO 230 [place] [address] Chronic GERD Social History Tobacco Use Types Packs/Day Years Used Date Smoking Tobacco: Never Smokeless Tobacco: Never Alcohol Use Standard Drinks/Week Comments Never 0 (1 standard drink = 0.6 oz pur e alcohol) PHQ-2 Answer Date Recorded Patient Health Questionnaire-2 Score 6 01/27/2023 Comments Unknown Sex and Gender Information Value Date Recorded Sex Assigned at Female 07/14/2022 10:29 AM EDT Legal Sex Female 10:29 AM EDT Gender Identity Female 07/14/2022 10:29 AM EDT Sexual Orientation Don't know 07/14/2022 10 :29 AM EDT documented as of this encounter Plan of Treatment Upcoming Encounters Date Type Department Care Team (Late Contact Info) Description 10/06/2024 10:00 AM EST Office Visit [facility] OPTOMETRY [address] [place], [place] [phone] Fantasma, Cindy, OD 230 [place], [place] [phone] 10/24/2024 9:00 AM EST Clinical Support [address] [address] Lauryn Cunningham, LUISITO 11/14/2024 11:15 AM EST Office Visit [address] [address] Sarah Verduzco DO 230 [place] [address] documented as of this encounter Visit Diagnoses Diagnosis Chronic GERD documented in this encounter Additional Health Concerns Assessment Noted Time PHQ-9 Depression Total Score: 16 01/27/ 023 10:36 AM EDT documented as of this encounter Care Teams Loading Rack Supervisor Relationship Specialty Start Date End Date Sarah Verduzco DO [address] [place] [address] PCP - General Family Medicine 11/21/15 documented as of this encounter
--- OUTSIDE RECORDS SUMMARY | 2024-10-05 15:32 | XMS_ITS | Encounter Summary ---
Author Organization [employer] Address 75 [facility] 7t [place] [address] Care Team Providers Care District Leader Name Role Phone Sarah Verduzco DO Primary Care Provider [phone] Reason for Visit * Reason Onset Date Comments Nurse Triage 04/20/2023 Encounter Details Date Type Department Care Team ([facility] st Contact Info) Description 04/20/2023 Telephone [facility] MEDICINE 230 [place], [place] [phone] Sarah Verduzco DO [address] [place], [place] [phone] Nurse Triage Social History Tobacco Use Types [...] Telephone Encounter - Tori Castillo RN - 04/20/2023 2:22 PM EDT Called pt. She states that she is having a lot of lower back pain and now is having left leg pain and also pain radiating on the left side of neck. Pt. States that an MRI has been ordered for her but, she still has not received a call from [facility] to book appt. Pt. Also has Fibromyalgia and is currently on Tramadol, Gabapentin, Cyclobenzaprine without any relief to back. Pt appt. Made for 04/24/[address] Olson as that is only opening in schedules this week and [facility] does not give out pain medication if pt. Needs supplemental pain medication in meantime. Pt. Also expresses that she has anxiety because her sister was diagnosed with multiple myeloma on her lower back in past and it is a concern. Will send this note to PCP even though PCP is not in office this week as FYI but, appt. Is made for04/24/[address] Olson. Protocol Used: Back Pain (Adult) Protocol-Based Disposition: See in Office or Video Visit within 3 Days Video visit not offered Positive Triage Questions: * Pain radiates into the thigh or further down the leg * Back pain is a chronic symptom (recurrent or ongoing AND lasting > 4 weeks) * All higher-acuity triage questions were negative Care Advice Discussed: * Reassurance and Education - Back Pain * Cold or Heat * Sleep * Activity * Pain Medicines * Telephone Encounter - Farzaneh Ybarra - 04/20/2023 2:12 PM EDT Symptom: Back Pain - Not From Injury Outcome: Schedule an appointment to be seen within 3 days Reason: Caller denied all higher acuity questions documented in this encounter Plan of Treatment Upcoming Encounters Date Type Department Care Team (Late st Contact Info) Description 10/06/2024 10:00 AM EST Office Visit [facility] OPTOMETRY [address] [place] [address] Cindy Meek, OD 230 [place] [address] 10/24/2024 9:00 AM EST Clinical Support [facility] MEDICINE [address] [place] [address] Lauryn Cunningham RN 11/14/2024 11:15 AM EST Office Visit [facility] MEDICINE 230 [place] [address] Sarah Verduzco DO [address] [place] [address] documented as of this encounter Visit Diagnoses Not on filedocumented in this encounter Additional Health Concerns Assessment Noted Time PHQ-9 Depression Total Score: 16 023 10:36 AM EDT documented as of this encounter Care Teams District Leader Relationship Specialty Start Date End Date Sarah Verduzco DO 230 [place] [address] PCP - General Family Medicine 11/21/15 documented as of this encounter
--- OUTSIDE RECORDS SUMMARY | 2024-10-05 15:32 | XMS_ITS | Encounter Summary ---
Author Organization [employer] Address 75 [facility] 7t [place] [address] Care Team Providers Care Professor Of Biology Name Role Phone Sarah Verduzco DO Primary Care Provider + [phone] Reason for Visit * Reason Comments Med Refill Encounter Details Date Type Department Care Team ([facility] Contact Info) Description 01/29/2024 Refill [facility] [address] [place], [place] [phone] Sarah Verduzco DO 230 [place], [place] [phone] Social History Tobacco Use Types Packs/Day Years [...] 10:00 AM EST Office Visit [facility] OPTOMETRY [address] [place] [address] Cindy Meek, OD 230 [place] [address] 10/24/2024 9:00 AM EST Clinical Support [facility] 230 [place] [address] Lauryn Cunningham, LUISITO 11/14/2024 11:15 AM EST Office Visit [address] [address] Sarah Verduzco DO 230 [place] [address] documented as of this encounter Visit Diagnoses Not on filedocumented in this encounter Additional Health Concerns Assessment Noted Time PHQ-9 Depression Total Score: 24 023 8:54 AM EDT documented as of this encounter Care Teams Professor Of Biology Relationship Specialty Start Date End Date Sarah Verduzco DO 230 [place] [address] PCP - General Family Medicine 11/21/15 documented as of this encounter
--- OUTSIDE RECORDS SUMMARY | 2024-10-05 15:34 | XMS_ITS | Encounter Summary ---
Author Organization [employer] Address 75 [facility] 7t [place] [address] Care Team Providers Care Physical Therapy Director Name Role Phone Sarah Verduzco DO Primary Care Provider + [phone] Reason for Visit * Reason Onset Date Comments Med Refill 03/20/2023 Encounter Details Date Type Department Care Team (Late st Contact Info) Description 03/20/2023 Telephone [facility] 230 [place], [place] [phone] Sarah Verduzco DO 230 [place], [place] [phone] Med Refill Social History Tobacco Use Types Packs/Day Years [...] encounter Miscellaneous Notes * Telephone Encounter - Rochelle Garzon - 03/20/2023 3:00 PM EDT Tc from pt requesting medication refill on traMADoL 50 mg tablet to be sent to [facility]/pharmacy #[id number] -[place], [place] - [address] documented in this encounter Plan of Treatment Upcoming Encounters Date Type Department Care Team (Late st Contact Info) Description 10/06/2024 10:00 AM EST Office Visit [facility] OPTOMETRY [address] [place] [address] Cindy Meek, OD 230 [place] [address] 10/24/2024 9:00 AM EST Clinical Support [facility] [address] [place], [place] [phone] Lauryn Cunningham, LUISITO 11/14/2024 11:15 AM EST Office Visit [facility] [address] [place] [address] Sarah Verduzco DO 230 [place] [address] documented as of this encounter Visit Diagnoses Not on filedocumented in this encounter Additional Health Concerns Assessment Noted Time PHQ-9 Depression Total Score: 16 01/27/ 023 10:36 AM EDT documented as of this encounter Care Teams Physical Therapy Director Relationship Specialty Start Date End Date Sarah Verduzco DO 230 [place], [place] [phone] PCP - General Family Medicine 11/21/15 documented as of this encounter
--- OUTSIDE RECORDS SUMMARY | 2024-10-05 15:34 | XMS_ITS | Encounter Summary ---
Author Organization [employer] Address 75 [facility] 7t [place] [address] Care Team Providers Care Vacuum Cleaner Repair Person Name Role Phone Sarah Verduzco DO Primary Care Provider + [phone] Reason for Visit * Reason Comments Med Refill Encounter Details Date Type Department Care Team (Late Contact Info) Description 10/21/2022 Telephone [facility] 230 [place], [place] [phone] Sarah Verduzco DO [address] [place] [address] Med Refill Social History Tobacco Use Types Packs/Day Years Used Date Smoking Tobacco: Never Assessed Comments Unknown Sex and Gender Information Value Date Recorded Sex Assigned at Female 07/14/2022 10:29 AM EDT Legal Sex Female 10:29 AM EDT Gender Identity Female 07/14/2022 10:29 AM EDT Sexual Orientation Don't know 07/14/2022 10 :29 AM EDT COVID-19 Exposure Response Date Recorded In the last 10 days, have yo u been in contact with someone who was confirmed or suspected to have Coronavirus/COVID-19? No / Unsure 10/10/2022 10:33 AM EST documented as of this encounter Miscellaneous Notes * Telephone Encounter - Farzaneh Ybarra - 10/21/2022 2:26 PM EST Tc from pt checking status on med refill for medication tramadol ? documented in this encounter Plan of Treatment Upcoming Encounters Date Type Department Care Team (Late Contact Info) Description 10/06/2024 10:00 AM EST Office Visit [facility] OPTOMETRY [address] [place] [address] FantasmaCindy sanchez, OD 230 [place] [address] 10/24/2024 9:00 AM EST Clinical Support [facility] 230 [place] [address] Lauryn Cunningham, LUISITO 11/14/2024 11:15 AM EST Office Visit [facility] 230 [place] [address] Sarah Verduzco DO [address] [place] [address] documented as of this encounter Visit Diagnoses Not on filedocumented in this encounter Care Teams Vacuum Cleaner Repair Person Relationship Specialty Start Date End Date Sarah Verduzco DO [address] [place] [address] PCP - General Family Medicine 11/21/15 documented as of this encounter
--- OUTSIDE RECORDS SUMMARY | 2024-10-05 15:34 | XMS_ITS | Encounter Summary ---
Author Organization [employer] Address 75 [facility] 7t [place] [address] Care Team Providers Care Extension Educator Name Role Phone Sarah Verduzco DO Primary Care Provider [phone] Reason for Visit * Reason Onset Date Comments Medication Question 03/24/2023 Encounter Details Date Type Department Care Team ([facility] Contact Info) Description 03/24/2023 Telephone [facility] 230 [place], [place] [phone] Sarah Verduzco DO 230 [place], [place] [phone] Medication Question Social History Tobacco Use Types Packs/Day Years [...] encounter Miscellaneous Notes * Telephone Encounter - Sarah Miller RN - 03/31/2023 10:17 AM EDT Sent again to pcp high priority. * Telephone Encounter - Thuy Nails - 03/31/2023 9:13 AM EDT Tc from pt requesting status on message below regarding medication. * Telephone Encounter - Rochelle Garzon - 03/24/2023 2:42 PM EDT Tc from pt requesting a call in regards to traMADol (Ultram) 50 MG tablet. Would like to know why she is receiving 28 tablets instead of the 112 tablets she used to receive. Please contact pt at [phone] documented in this encounter Plan of Treatment Upcoming Encounters Date Type Department Care Team (Late st Contact Info) Description 10/06/2024 10:00 AM EST Office Visit [facility] OPTOMETRY [address] [place] [address] Cindy Meek, OD 230 [place] [address] 10/24/2024 9:00 AM EST Clinical Support [facility] 230 [place] [address] Lauryn Cunningham, LUISITO 11/14/2024 11:15 AM EST Office Visit [facility] 230 [place] [address] Sarah Verduzco DO 230 [place] [address] documented as of this encounter Visit Diagnoses Not on filedocumented in this encounter Additional Health Concerns Assessment Noted Time PHQ-9 Depression Total Score: 16 023 10:36 AM EDT documented as of this encounter Care Teams Extension Educator Relationship Specialty Start Date End Date Sarah Verduzco DO 230 [place] [address] PCP - General Family Medicine 11/21/15 documented as of this encounter
--- OUTSIDE RECORDS SUMMARY | 2024-10-05 15:34 | XMS_ITS | Encounter Summary ---
Author Organization [employer] Address 75 [facility] 7t [place] [address] Care Team Providers Care Dice Table Person Name Role Phone Sarah Verduzco DO Primary Care Provider + [phone] Reason for Visit * Reason Comments Med Refill Encounter Details Date Type Department Care Team (Late Contact Info) Description 02/06/2023 Refill [facility] 230 [place] [address] Sarah Verduzco DO 230 [place] [address] Chronic GERD Social History Tobacco Use Types [...] suspected to have Coronavirus/COVID-19? No / Unsure 01/27/2023 10:06 AM EDT documented as of this encounter Plan of Treatment Upcoming Encounters Date Type Department Care Team ([facility] Contact Info) Description 10/06/2024 10:00 AM EST Office Visit [facility] OPTOMETRY [address] [place] [address] FantasmaCindy sanchez, OD 230 [place] [address] 10/24/2024 9:00 AM EST Clinical Support [address] [address] Lauryn Cunningham, RN 11/14/2024 11:15 AM EST Office Visit [address] [address] Sarah Verduzco DO 230 [place] [address] documented as of this encounter Visit Diagnoses Diagnosis Chronic GERD documented in this encounter Additional Health Concerns Assessment Noted Time PHQ-9 Depression Total Score: 16 01/27/ 023 10:36 AM EDT documented as of this encounter Care Teams Dice Table Person Relationship Specialty Start Date End Date Sarah Verduzco DO [address] [place] [address] PCP - General Family Medicine 11/21/15 documented as of this encounter
--- OUTSIDE RECORDS SUMMARY | 2024-10-05 15:34 | XMS_ITS | Encounter Summary ---
Author Organization [employer] Address 75 [facility] 7t [place] [address] Care Team Providers Care Unit Manager Rn Name Role Phone MaddieSarah arriaga Primary Care Provider + [phone] Reason for Visit * Reason Comments Med Refill Encounter Details Date Type Department Care Team (Late Contact Info) Description 10/21/2022 Refill [facility] MEDICINE 230 [place] [address] Елена Olson MD 230 [place] [address] Sinusitis, unspecified chronicity, unspecified location Social History Tobacco Use Types Packs/Day Years [...] AM EST documented as of this encounter Plan of Treatment Upcoming Encounters Date Type Department Care Team (Late Contact Info) Description 10/06/2024 10:00 AM EST Office Visit [facility] OPTOMETRY [address] [place] [address] Cindy Meek, OD 230 [place] [address] 10/24/2024 9:00 AM EST Clinical Support [address] [address] Lauryn Cunningham RN 11/14/2024 11:15 AM EST Office Visit [address] [address] Sarah Verduzco DO [address] [place] [address] documented as of this encounter Visit Diagnoses Diagnosis Sinusitis, unspecified chronicity, unspecified location documented in this encounter Care Teams Unit Manager Rn Relationship Specialty Start Date End Date Sarah Verduzco DO [address] [place] [address] PCP - General Family Medicine 11/21/15 documented as of this encounter
--- OUTSIDE RECORDS SUMMARY | 2024-10-05 15:34 | XMS_ITS | Encounter Summary ---
Author Organization [employer] Address 75 [facility] 7t [place] [address] Care Team Providers Care Lost And Found Clerk Name Role Phone Sarah Verduzco DO Primary Care Provider + [phone] Encounter Details Date Type Department Care Team (Late Contact Info) Description 12/24/2022 Orders Only [address] [address] Sarah Verduzco DO [address] [place] [address] Social History Tobacco Use Types Packs/Day Years Used Date Smoking Tobacco: Never Smokeless Tobacco: Never Comments Unknown Sex and Gender Information Value [...] Description 10/06/2024 10:00 AM EST Office Visit [facility] OPTOMETRY [address] [place] [address] Cindy Meek, OD 230 [place] [address] 10/24/2024 9:00 AM EST Clinical Support [address] [address] Lauryn Cunningham RN 11/14/2024 11:15 AM EST Office Visit [facility] MEDICINE 230 [place] [address] Sarah Verduzco DO 230 [place] [address] documented as of this encounter Visit Diagnoses Not on filedocumented in this encounter Care Teams Lost And Found Clerk Relationship Specialty Start Date End Date Sarah Verduzco DO 230 [place] [address] PCP - General Family Medicine 11/21/15 documented as of this encounter
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
--- OUTSIDE RECORDS SUMMARY | 2024-10-05 15:34 | XMS_ITS | Encounter Summary ---
Author Organization [employer] Address 75 [facility] 7t [place] [address] Care Team Providers Care Gold Buyer Name Role Phone Sarah Verduzco DO Primary Care Provider + [phone] Reason for Visit * Reason Comments Med Refill Encounter Details Date Type Department Care Team (Late Contact Info) Description 12/19/2022 Refill [facility] MEDICINE 230 [place] [address] Sarah Verduzco DO 230 [place] [address] Social History Tobacco Use Types Packs/Day Years [...] Description 10/06/2024 10:00 AM EST Office Visit [facility] OPTOMETRY [address] [place], [place] [phone] Cindy Meek, ALBINA 230 [place] [address] 10/24/2024 9:00 AM EST Clinical Support [facility] MEDICINE 230 [place] [address] Lauryn Cunningham RN 11/14/2024 11:15 AM EST Office Visit [facility] MEDICINE [address] [place] [address] Sarah Verduzco DO 230 [place] [address] documented as of this encounter Visit Diagnoses Not on filedocumented in this encounter Care Teams Gold Buyer Relationship Specialty Start Date End Date Sarah Verduzco DO [address] [place] [address] PCP - General Family Medicine 11/21/15 documented as of this encounter
--- OUTSIDE RECORDS SUMMARY | 2024-10-05 15:34 | XMS_ITS | Encounter Summary ---
Author Organization [facility] [employer] Address 75 [facility] 7t [place] [address] Care Team Providers Care Morphologist Name Role Phone Sarah Verduzco DO Primary Care Provider + [phone] Reason for Visit * Reason Comments Med Refill Encounter Details Date Type Department Care Team (Late Contact Info) Description 12/04/2022 Refill [facility] MEDICINE 230 [place] [address] Sarah Verduzco DO 230 [place] [address] Social History Tobacco Use Types Packs/Day Years [...] Description 10/06/2024 10:00 AM EST Office Visit [facility] OPTOMETRY [address] [place], [place] [phone] Cindy Meek, ALBINA 230 [place] [address] 10/24/2024 9:00 AM EST Clinical Support [facility] MED[facility]INE 230 [place] [address] Lauryn Cunningham RN 11/14/2024 11:15 AM EST Office Visit [facility] MED[facility]INE [address] [place] [address] Sarah Verduzco DO 230 [place] [address] documented as of this encounter Visit Diagnoses Not on filedocumented in this encounter Care Teams Morphologist Relationship Specialty Start Date End Date Sarah Verduzco DO [address] [place] [address] PCP - General Family Medicine 11/21/15 documented as of this encounter
--- OUTSIDE RECORDS SUMMARY | 2024-10-05 15:35 | XMS_ITS | Encounter Summary ---
Author Organization [employer] Address 75 [facility] 7t [place] [address] Care Team Providers Care Mannequin Mold Maker Name Role Phone Sarah Verduzco DO Primary Care Provider + [phone] Reason for Visit * Reason Onset Date Comments Med Refill 10/20/2022 Encounter Details Date Type Department Care Team ([facility] st Contact Info) Description 10/20/[address] [facility] MEDICINE 230 [place], [place] [phone] Sarah Verduzco DO 230 [place], [place] [phone] Med Refill Social History Tobacco Use Types [...] encounter Miscellaneous Notes * Telephone Encounter - Christopher Steinberg - 10/20/2022 10:54 AM EST Tc from pt requesting med refill Tramadol 50 mg documented in this encounter Plan of Treatment Upcoming Encounters Date Type Department Care Team (Late st Contact Info) Description 10/06/2024 10:00 AM EST Office Visit [facility] OPTOMETRY [address] [place], [place] [phone] Cindy Meek, OD 230 [place] [address] 10/24/2024 9:00 AM EST Clinical Support [facility] MEDICINE [address] [place] [address] Lauryn Cunningham, LUISITO 11/14/2024 11:15 AM EST Office Visit [facility] MEDICINE [address] [place] [address] Sarah Verduzco DO 230 [place] [address] documented as of this encounter Visit Diagnoses Not on filedocumented in this encounter Care Teams Mannequin Mold Maker Relationship Specialty Start Date End Date Sarah Verduzco DO 230 [place] [address] PCP - General Family Medicine 11/21/15 documented as of this encounter
== END 2024-10-05 13:44 | disposition home or self-care (01) ==
PROVIDERS: PCP Family Medicine; Visit Provider Student in an Organized Health Care Education/Training Program
DX: E04.2 Nontoxic multinodular goiter (principal)
CPT/HCPCS: 99213

== ENCOUNTER → 2024-10-05 13:25 | Outpatient (BNVA) | payer OTHER, SELFPAY | PROVIDERS: PCP Family Medicine; Visit Provider Student in an Organized Health Care Education/Training Program | DX: E04.2 Nontoxic multinodular goiter (principal) | CPT/HCPCS: 99212 ==

== ENCOUNTER 2024-10-27 08:58 | Outpatient (REF) | payer OTHER, SELFPAY ==
--- NOTE | ~2024-10-27 | US_ITS ---
CLINICAL HISTORY: ?hernia R lower or upper quadrant US abdominal wall nonvascular Comparison: None Findings: Sonographic evaluation in the area of clinical concern with and without Valsalva right lower quadrant anterior abdominal wall to the right of the umbilicus demonstrates a 7 mm fascial defect containing fat with a fascial defect most conspicuous during Valsalva. No masses lymphadenopathy or abnormal fluid collections demonstrated Impression: A 7 mm fascial defect is demonstrated in the anterior abdominal wall right lower quadrant to the right of the umbilicus containing fat most conspicuous during Valsalva This document has been electronically signed by: Aubrey Kumar MD on 10/27/2024 13:01:09
--- OUTSIDE RECORDS SUMMARY | 2024-10-27 09:24 | XMS_ITS | Encounter Summary ---
Author Organization [employer] Address [address] [facility] [address] 7t [place] [address] Care Team Providers Care Apple Checker Name Role Phone Sarah Verduzco DO Primary Care Provider + [phone] Encounter Details Date Type Department Care Team ([facility] st Contact Info) Description 07/27/2023 Telephone [facility] MEDICINE 230 [place], [place] [phone] Sarah Verduzco DO 230 [place], [place] [phone] Social History Tobacco Use Types Packs/Day Years [...] Care Team (Late st Contact Info) Description 11/07/2024 1:30 PM EST Clinical Support [facility] MEDICINE [address] [place] [address] Lauryn Cunningham RN 11/14/2024 11:15 AM EST Office Visit [facility] MEDICINE [address] [place] [address] Sarah Verduzco DO 230 [place] [address] 01/25/2025 10:30 AM EDT Office Visit [facility] OPTOMETRY [address] [place] [address] Fantasma, Cindy, OD 230 [place] [address] documented as of this encounter Visit Diagnoses Not on filedocumented in this encounter Additional Health Concerns Assessment Noted Time PHQ-9 Depression Total Score: 24 023 8:54 AM EDT documented as of this encounter Care Teams Apple Checker Relationship Specialty Start Date End Date Sarah Verduzco DO 230 [place] [address] PCP - General Family Medicine 11/21/15 documented as of this encounter
--- OUTSIDE RECORDS SUMMARY | 2024-10-27 09:24 | XMS_ITS | Encounter Summary ---
Author Organization [employer] Address 75 [facility] 7t [place] [address] Care Team Providers Care Plowing Gardens Name Role Phone Sarah Verduzco DO Primary Care Provider + [phone] Reason for Visit * Reason Comments Med Refill Encounter Details Date Type Department Care Team (Late Contact Info) Description 02/06/2023 Refill [facility] MEDICINE 230 [place], [place] [phone] Sarah Verduzco DO 230 [place] [address] Chronic GERD Social History Tobacco Use Types [...] Upcoming Encounters Date Type Department Care Team ([facility] Contact Info) Description 11/07/2024 1:30 PM EST Clinical Support [facility] MEDICINE 230 [place] [address] Lauryn Cunningham RN 11/14/2024 11:15 AM EST Office Visit [facility] MEDICINE [address] [place] [address] Sarah Verduzco DO 230 [place] [address] 01/25/2025 10:30 AM EDT Office Visit [facility] OPTOMETRY [address] [place], [place] [phone] Cindy Meek, OD 230 [place] [address] documented as of this encounter Visit Diagnoses Diagnosis Chronic GERD documented in this encounter Additional Health Concerns Assessment Noted Time PHQ-9 Depression Total Score: 16 023 10:36 AM EDT documented as of this encounter Care Teams Plowing Gardens Relationship Specialty Start Date End Date Sarah Verduzco DO 230 [place] [address] PCP - General Family Medicine 11/21/15 documented as of this encounter
--- OUTSIDE RECORDS SUMMARY | 2024-10-27 09:24 | XMS_ITS | Encounter Summary ---
Author Organization [employer] [facility] Address 75 [facility] 7t [place] [address] Care Team Providers Care Director Nursery School Name Role Phone Sarah Verduzco DO Primary Care Provider + [phone] Reason for Visit * Reason Comments Med Refill Encounter Details Date Type Department Care Team (Late st Contact Info) Description 12/19/2022 Refill [facility] MEDICINE [address] [place] [address] Sarah Verduzco DO 230 [place] [address] Social History Tobacco Use Types Packs/Day Years [...] Department Care Team (Late Contact Info) Description 11/07/2024 1:30 PM EST Clinical Support [address] [address] Lauryn Cunningham RN 11/14/2024 11:15 AM EST Office Visit [address] [address] Sarah Verduzco DO [address] [place] [address] 01/25/2025 10:30 AM EDT Office Visit [facility] OPTOMETRY [address] [place] [address] Cindy Meek, ALBINA 230 [place] [address] documented as of this encounter Visit Diagnoses Not on filedocumented in this encounter Care Teams Director Nursery School Relationship Specialty Start Date End Date Sarah Verduzco DO 230 [place] [address] PCP - General Family Medicine 11/21/15 documented as of this encounter
--- OUTSIDE RECORDS SUMMARY | 2024-10-27 09:24 | XMS_ITS | Encounter Summary ---
Author Organization [facility] Address [address] [place] [address] Care Team Providers Care Bathhouse Keeper Name Role Phone Sarah Verduzco DO Primary Care Provider Aura Kramer MD Unavailable [phone] Mimi Newsome PA-C Unavailable [phone] Kaleb Tripathi PA-C Unavailable +[phone] Encounter Details Date Type Department Care Team Description 09/08/2018 Refill Internal Medicine - [place] [address] [facility], [address] [place] [address] Sheila Eubanks MD Social History Tobacco Use Types Packs/Day Years Used Date Smoking Tobacco: Former Smokeless Tobacco: Never Sex Assigned at Date Recorded Not on file documented as of this encounter Miscellaneous Notes * Telephone Encounter - Leeann Smith - 09/08/2018 3:31 PM EST Spoke with pt, she stated that Dr. Narvaez is her PCP. I told her that she need to call that office for a refill * Telephone Encounter - Christine Faith M.A. - 09/08/2018 12:55 PM EST Last seen 05/12/17 documented in this encounter Plan of Treatment Not on file documented as of this encounter Visit Diagnoses Not on filedocumented in this encounter Care Teams Bathhouse Keeper Relationship Specialty Start Date End Date Sarah Verduzco DO PCP - General Internal Medicine 02/09/18 Aura Pollock MD 175 [facility] [address] [place] [address] [phone] Surgeon Neurosurgery 12/09/21 Mimi Newsome PA-C [address] [phone] Specialist Neurosurgery 12/09/21 Kaleb Tripathi PA-C 175 [facility] [address] [place] [address] [phone] Specialist Neurosurgery 12/09/21 documented as of this encounter
--- OUTSIDE RECORDS SUMMARY | 2024-10-27 09:24 | XMS_ITS | Encounter Summary ---
Author Organization [facility] Address [address] [place] [address] Care Team Providers Care Customer Support Assistant Name Role Phone Sarah Verduzco DO Primary Care Provider [phone] Reason for Visit * Therapy (Routine) - Authorized Specialty Diagnoses / Procedures Referred By Contac t Referred To Contact Physical Therapy Diagnoses Cervical spondylosis with radiculopathy Mimi Newsome PA 175 [facility], [address] [place] [address] Phone: tel: fax: [address] [address] Phone: tel: fax: Referral ID Status Reason Start Date Expiration Date Visits Requested Visits Authorized [id number] Authorized Consult and Treat 08/04/2024 08/04/2025 20 20 Encounter Details Date Type Department Care Team (Latest Contact Info) Description 10/20/2024 8:00 AM EST Evaluation [address] [address] Darby Chirinos PT Cervical spondylosis with radiculopathy (Primary Dx) Social History Tobacco Use Types Packs/Day Years Used Date Smoking Tobacco: Former Smokeless Tobacco: Never Comments Unknown Sex and Gender Information Value Date Recorded Sex Assigned at Not on file Legal Sex Female 4:29 PM EST Gender Identity Not on file Sexual Orientation Not on file documented as of this encounter Progress Notes * Darby Chirinos PT - 10/20/2024 8:00 AM EST Pt brought back for evaluation of chronic low back pain. During H&P portion of eval pt notes being seen at [facility] for aquatic Physical Therapy. Pt educated on insurance rules regarding inability to be seen at 2 different places for PT at the same time. Pt verbalized understanding and expressed intent to finish PT at other clinic and return in future as needed. (No charge) documented in this encounter Plan of Treatment Scheduled Referrals Name Type Priority Associated Diagnoses Orde r Schedule Ambulatory referral to Physical Therapy and Athletic Training Outpatient Referral Routine Cervical spondylosis with radiculopathy Expected: 08/04/2024, Expires: 08/04/2025 documented as of this encounter Visit Diagnoses Diagnosis Cervical spondylosis with radiculopathy- Primary Cervical spondylosis with myelopathy documented in this encounter Care Teams Customer Support Assistant Relationship Specialty Start Date End Date Sarah Verduzco DO [address] [place] [address] PCP - General Internal Medicine 02/09/18 documented as of this encounter
--- OUTSIDE RECORDS SUMMARY | 2024-10-27 09:24 | XMS_ITS | Encounter Summary ---
Author Organization [employer] Address 75 [facility] 7t [place] [address] Care Team Providers Care Resources Representative Name Role Phone Sarah Verduzco DO Primary Care Provider + [phone] Reason for Visit * Reason Onset Date Comments Nurse Triage 07/20/2023 Encounter Details Date Type Department Care Team ([facility] st Contact Info) Description 07/20/2023 Telephone [facility] [address] [place], [place] [phone] Sarah Verduzco DO 230 [place], [place] [phone] Nurse Triage Social History Tobacco Use Types [...] juice Pt agrees. Advised to come to [facility] today to be seen by provider and [...] accepted this outcome Please contact pt at [phone] documented in this encounter Plan of Treatment Upcoming Encounters Date Type Department Care Team (Late st Contact Info) Description 11/07/2024 1:30 PM EST Clinical Support [facility] [address] [place] [address] Lauryn Cunningham, RN 11/14/2024 11:15 AM EST Office Visit [facility] [address] [place] [address] Sarah Verduzco DO 230 [place] [address] 01/25/2025 10:30 AM EDT Office Visit [facility] OPTOMETRY [address] [place], [place] [phone] Cindy Meek, OD 230 [place] [address] documented as of this encounter Visit Diagnoses Not on filedocumented in this encounter Additional Health Concerns Assessment Noted Time PHQ-9 Depression Total Score: 24 023 8:54 AM EDT documented as of this encounter Care Teams Resources Representative Relationship Specialty Start Date End Date Sarah Verduzco DO 230 [place], [place] [phone] PCP - General Family Medicine 11/21/15 documented as of this encounter
--- OUTSIDE RECORDS SUMMARY | 2024-10-27 09:24 | XMS_ITS | Encounter Summary ---
Author Organization [employer] Address 75 [facility] 7t [place] [address] Care Team Providers Care Plush Finisher Name Role Phone Sarah Verduzco DO Primary Care Provider + [phone] Reason for Visit * Reason Comments Med Refill Encounter Details Date Type Department Care Team ([facility] Contact Info) Description 08/20/[address] [facility] [address] [place], [place] [phone] Sarah Verduzco DO 230 [place] [address] Chronic neck pain Social History Tobacco Use [...] 08/31/2023 11:48 AM EST Referral faxed for AMORTIZATION CLERK services to , per provider request. documented in this encounter Plan of Treatment Upcoming Encounters Date Type Department Care Team (Late st Contact Info) Description 11/07/2024 1:30 PM EST Clinical Support [facility] [address] [place] [address] Lauryn Cunningham, LUISITO 11/14/2024 11:15 AM EST Office Visit [facility] [address] [place] [address] Sarah Verduzco DO 230 [place] [address] 01/25/2025 10:30 AM EDT Office Visit [facility] OPTOMETRY [address] [place] [address] Fantasma, Cindy, OD 230 [place] [address] documented as of this encounter Visit Diagnoses Diagnosis Chronic neck pain Cervicalgia documented in this encounter Additional Health Concerns Assessment Noted Time PHQ-9 Depression Total Score: 24 023 8:54 AM EDT documented as of this encounter Care Teams Plush Finisher Relationship Specialty Start Date End Date Sarah Verduzco DO 230 [place] [address] PCP - General Family Medicine 11/21/15 documented as of this encounter
--- OUTSIDE RECORDS SUMMARY | 2024-10-27 09:24 | XMS_ITS | Encounter Summary ---
Author Organization [employer] Address 75 [facility] 7t [place] [address] Care Team Providers Care Project Asst Name Role Phone Sarah Verduzco DO Primary Care Provider + [phone] Reason for Visit * Reason Comments Med Refill Encounter Details Date Type Department Care Team ([facility] Contact Info) Description 09/08/2023 Refill [facility] 230 [place], [place] [phone] Sarah Verduzco DO 230 [place] [address] Social History Tobacco Use Types Packs/Day Years [...] 11/07/2024 1:30 PM EST Clinical Support [facility] [address] [place] [address] Lauryn Cunningham, LUISITO 11/14/2024 11:15 AM EST Office Visit [facility] [address] [place] [address] Sarah Verduzco DO 230 [place] [address] 01/25/2025 10:30 AM EDT Office Visit [facility] OPTOMETRY [address] [place] [address] Fantasma, Cindy, OD 230 [place] [address] documented as of this encounter Visit Diagnoses Not on filedocumented in this encounter Additional Health Concerns Assessment Noted Time PHQ-9 Depression Total Score: 24 023 8:54 AM EDT documented as of this encounter Care Teams Project Asst Relationship Specialty Start Date End Date Sarah Verduzco DO 230 [place] [address] PCP - General Family Medicine 11/21/15 documented as of this encounter
--- OUTSIDE RECORDS SUMMARY | 2024-10-27 09:24 | XMS_ITS | Encounter Summary ---
Author Organization [employer] [facility] Address 75 [facility] 7t [place] [address] Care Team Providers Care Maintenance Plumber Name Role Phone Sarah Verduzco DO Primary Care Provider [phone] Encounter Details Date Type Department Care Team (Late Contact Info) Description 12/24/2022 Orders Only [facility] [address] [place] [phone] Sarah Verduzco DO [address] [place] [address] Social History Tobacco Use Types Packs/Day Years [...] Description 11/07/2024 1:30 PM EST Clinical Support [address] [address] Lauryn Cunningham RN 11/14/2024 11:15 AM EST Office Visit [address] [address] Sarah Verduzco DO [address] [place] [address] 01/25/2025 10:30 AM EDT Office Visit [facility] [address] [place] [address] Cindy Meek, OD 230 [place], [place] [phone] documented as of this encounter Visit Diagnoses Not on filedocumented in this encounter Care Teams Maintenance Plumber Relationship Specialty Start Date End Date Sarah Verduzco DO 230 [place], [place] [phone] PCP - General Family Medicine 11/21/15 documented as of this encounter
--- OUTSIDE RECORDS SUMMARY | 2024-10-27 09:24 | XMS_ITS | Encounter Summary ---
Author Organization [employer] [facility] Address 75 [facility] 7t [place] [address] Care Team Providers Care Senior Buyer Planner Name Role Phone Sarah Verduzco DO Primary Care Provider + [phone] Reason for Visit * Reason Comments Med Refill Encounter Details Date Type Department Care Team (Late Contact Info) Description 10/21/2022 Refill [facility] MED[facility]INE [address] [place] [address] Елена Olson MD [address] [place] [address] [phone] Sinusitis, unspecified chronicity, unspecified location Social History [...] Description 11/07/2024 1:30 PM EST Clinical Support [facility] MEDICINE [address] [place] [address] Lauryn Cunningham RN 11/14/2024 11:15 AM EST Office Visit [facility] [address] [place] [address] [place] [address] Sarah Verduzco DO 230 [place] [address] 01/25/2025 10:30 AM EDT Office Visit [facility] OPTOMETRY [address] [place] [address] Cindy Meek, OD 230 [place] [address] documented as of this encounter Visit Diagnoses Diagnosis Sinusitis, unspecified chronicity, unspecified location documented in this encounter Care Teams Senior Buyer Planner Relationship Specialty Start Date End Date Sarah Verduzco DO 230 [place] [address] PCP - General Family Medicine 11/21/15 documented as of this encounter
--- OUTSIDE RECORDS SUMMARY | 2024-10-27 09:24 | XMS_ITS | Encounter Summary ---
Author Organization [employer] Address 75 [facility] 7t [place] [address] Care Team Providers Care Tar Boiler Name Role Phone Sarah Verduzco DO Primary Care Provider + [phone] Reason for Visit * Reason Comments Med Refill Encounter Details Date Type Department Care Team (Late Contact Info) Description 10/21/2022 Telephone [facility]INE 230 [place], [place] [phone] Sarah Verduzco DO 230 [place], [place] [phone] Med Refill Social History Tobacco Use Types [...] 11/07/2024 1:30 PM EST Clinical Support [facility]INE [address] [place] [address] Lauryn Cunningham, RN 11/14/2024 11:15 AM EST Office Visit [facility]ICINE [address] [place] [address] Sarah Verduzco DO 230 [place] [address] 01/25/2025 10:30 AM EDT Office Visit [facility] OPTOMETRY [address] [place] [address] Cindy Meek, OD 230 [place] [address] documented as of this encounter Visit Diagnoses Not on filedocumented in this encounter Care Teams Tar Boiler Relationship Specialty Start Date End Date Sarah Verduzco DO 230 [place] [address] PCP - General Family Medicine 11/21/15 documented as of this encounter
--- OUTSIDE RECORDS SUMMARY | 2024-10-27 09:24 | XMS_ITS | Encounter Summary ---
Author Organization [employer] Address 75 [facility] 7t [place] [address] Care Team Providers Care Boat Washer Name Role Phone Sarah Verduzco DO Primary Care Provider + [phone] Reason for Visit * Reason Onset Date Comments Med Refill 10/20/2022 Encounter Details Date Type Department Care Team ([facility] st Contact Info) Description 10/20/2022 Telephone [facility]INE 230 [place], [place] [phone] Sarah Verduzco DO 230 [place], [place] [phone] Med Refill Social History Tobacco Use Types [...] Description 11/07/2024 1:30 PM EST Clinical Support [facility] [address] [place] [address] Lauryn Cunningham, RN 11/14/2024 11:15 AM EST Office Visit [facility] [address] [place] [address] Sarah Verduzco DO 230 [place] [address] 01/25/2025 10:30 AM EDT Office Visit [facility] OPTOMETRY [address] [place] [address] Cindy Meek, ALBINA 230 [place] [address] documented as of this encounter Visit Diagnoses Not on filedocumented in this encounter Care Teams Boat Washer Relationship Specialty Start Date End Date Sarah Verduzco DO 230 [place] [address] PCP - General Family Medicine 11/21/15 documented as of this encounter
--- OUTSIDE RECORDS SUMMARY | 2024-10-27 09:25 | XMS_ITS | Encounter Summary ---
Author Organization [employer] Address 75 [facility] 7t [place] [address] Care Team Providers Care Timber Girdler Name Role Phone Sarah Verduzco DO Primary Care Provider + [phone] Reason for Visit * Reason Comments Med Refill Encounter Details Date Type Department Care Team ([facility] Contact Info) Description 06/20/2023 Refill [facility] MEDICINE 230 [place], [place] [phone] Sarah Verduzco DO 230 [place] [address] Chronic neck pain Social History Tobacco Use [...] Description 11/07/2024 1:30 PM EST Clinical Support [facility] MEDICINE [address] [place] [address] Lauryn Cunningham, LUISITO 11/14/2024 11:15 AM EST Office Visit [facility] MEDICINE [address] [place] [address] Sarah Verduzco DO 230 [place] [address] 01/25/2025 10:30 AM EDT Office Visit [facility] OPTOMETRY [address] [place] [address] Cindy Meek, OD 230 [place] [address] documented as of this encounter Visit Diagnoses Diagnosis Chronic neck pain Cervicalgia documented in this encounter Additional Health Concerns Assessment Noted Time PHQ-9 Depression Total Score: 24 023 8:54 AM EDT documented as of this encounter Care Teams Timber Girdler Relationship Specialty Start Date End Date Sarah Verduzco DO 230 [place] [address] PCP - General Family Medicine 11/21/15 documented as of this encounter
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
--- OUTSIDE RECORDS SUMMARY | 2024-10-27 09:25 | XMS_ITS | Encounter Summary ---
Author Organization [employer] Address 75 [facility] 7t [place] [address] Care Team Providers Care Food Sampler Name Role Phone Sarah Verduzco DO Primary Care Provider [phone] Reason for Visit * Reason Onset Date Comments Medication Question 03/24/2023 Encounter Details Date Type Department Care Team ([facility] Contact Info) Description 03/24/2023 Telephone [facility] MEDICINE [address] [place], [place] [phone] Sarah Verduzco DO 230 [place], [place] [phone] Medication Question Social History Tobacco Use Types [...] used to receive. Please contact pt at [phone] documented in this encounter Plan of Treatment Upcoming Encounters Date Type Department Care Team (Late st Contact Info) Description 11/07/2024 1:30 PM EST Clinical Support [facility] [address] [place] [address] Lauryn Cunningham RN 11/14/2024 11:15 AM EST Office Visit [facility] MED[facility]INE [address] [place] [address] Sarah Verduzco DO 230 [place] [address] 01/25/2025 10:30 AM EDT Office Visit [facility] OPTOMETRY [address] [place] [address] Fantasma, Cindy, OD 230 [place] [address] documented as of this encounter Visit Diagnoses Not on filedocumented in this encounter Additional Health Concerns Assessment Noted Time PHQ-9 Depression Total Score: 16 023 10:36 AM EDT documented as of this encounter Care Teams Food Sampler Relationship Specialty Start Date End Date Sarah Verduzco DO 230 [place] [address] PCP - General Family Medicine 11/21/15 documented as of this encounter
--- OUTSIDE RECORDS SUMMARY | 2024-10-27 09:25 | XMS_ITS | Encounter Summary ---
Author Organization [employer] Address 75 [facility] 7t [place] [address] Care Team Providers Care Commercial Lines Account Assistant Name Role Phone Sarah Verduzco DO Primary Care Provider + [phone] Reason for Visit * Reason Comments Med Refill Encounter Details Date Type Department Care Team ([facility] Contact Info) Description 10/06/2024 Refill [facility] MED[facility]INE 230 [place], [place] [phone] Sarah Verduzco DO 230 [place], [place] [phone] Social History Tobacco Use Types Packs/Day Years [...] Description 11/07/2024 1:30 PM EST Clinical Support [facility] MEDICINE 230 [place] [address] Lauryn Cunningham RN 11/14/2024 11:15 AM EST Office Visit [facility] MEDICINE [address] [place] [address] Sarah Verduzco DO [address] [place] [address] 01/25/2025 10:30 AM EDT Office Visit [facility] OPTOMETRY [address] [place] [address] Cindy Meek, OD 230 [place] [address] documented as of this encounter Visit Diagnoses Not on filedocumented in this encounter Additional Health Concerns Assessment Noted Time PHQ-9 Depression Total Score: 11 024 10:42 AM EDT documented as of this encounter Care Teams [employer] Account Assistant Relationship Specialty Start Date End Date Sarah Verduzco DO [address] [place] [address] PCP - General Family Medicine 11/21/15 documented as of this encounter
--- OUTSIDE RECORDS SUMMARY | 2024-10-27 09:25 | XMS_ITS | Encounter Summary ---
Author Organization [employer] Address 75 [facility] 7t [place] [address] Care Team Providers Care Grocery Team Member Name Role Phone Sarah Verduzco DO Primary Care Provider + [phone] Reason for Visit * Reason Comments Med Refill Encounter Details Date Type Department Care Team (Late st Contact Info) Description 04/19/2023 Refill [facility] MEDICINE [address] [place] [address] Alexa Padgett FNP [address] [place] [address] Dept [place] [address] Chronic bilateral low back pain without sciatica Social History Tobacco Use Types Packs/Day Years [...] Description 11/07/2024 1:30 PM EST Clinical Support [facility] MEDICINE [address] [place] [address] Lauryn Cunningham RN 11/14/2024 11:15 AM EST Office Visit [facility] MEDICINE [address] [place] [address] Sarah Verduzco DO 230 [place] [address] 01/25/2025 10:30 AM EDT Office Visit [facility] OPTOMETRY [address] [place] [address] Fantasma, Cindy, OD 230 [place], [place] [phone] documented as of this encounter Visit Diagnoses Diagnosis Chronic bilateral low back pain without sciatica documented in this encounter Additional Health Concerns Assessment Noted Time PHQ-9 Depression Total Score: 023 10:36 AM EDT documented as of this encounter Care Teams Grocery Team Member Relationship Specialty Start Date End Date Sarah Verduzco DO 230 [place] [address] PCP - General Family Medicine 11/21/15 documented as of this encounter
--- OUTSIDE RECORDS SUMMARY | 2024-10-27 09:25 | XMS_ITS | Data Portability ---
Author Organization [employer] [facility] Address [address] [place] [id number] Care Team Providers Care Third Miller Name Role Phone CCA PRIMARY CARE Referring Provider [phone] Assessment Encounter Date Assessment Date Assessment LastModified by Organization Details LastModified Time 03/18/2023 03/18/2023 I provided real -time medical direction via phone for this encounter, and was available for additional phone based assistance as needed. I have reviewed and agree with the Assessment and Plan as documented by the Fuel Tank Sealer And Tester. Patient given the opportunity to ask questions. Advised if develops CP/severe SOB/turning blue/uncontrolle d pain in flank/ abd or uncontrolled n/v/d or black/bloody emesis or stool/ AMS/ syncope/ hi fever unresponsive to APAP to call 911- advised close f/u with pcp and urology -verbalized understanding of instructions to the medic [email or web address] Not available 03/18/2023 12:04:35 Plan of Treatment Reminders Order Date Submit Date Provider Last Modified By Organization Details Last Modified Time Details Appointments None recorded. Lab culture, urine 2022 023 [place] [facility], [facility] [place], [address], 3 15:12:44 urinalysis, dipstick 2022 023 [email or web address] 0 [facility], [address] [place] [address], [address], 3 17:08:56 rapid SARS CoV 2 Ag, QL IA, respiratory specimen 2022 023 [email or web address] 0 [facility], [address] [place] [address], [address], 3 12:05:04 rapid flu (A+B) 2022 023 [email or web address] 0 [facility], [address] [place] [address], [address], 3 12:05:04 rapid SARS CoV 2 Ag, QL IA, respiratory specimen 2023 024 [email or web address] [facility], [address] [place] [address], [address], 4 18:19:53 rapid flu (A+B) 2023 024 [email or web address] [facility], [address] [place] [address], [address], 4 18:19:51 Referral None recorded. Procedures None recorded. Surgeries None recorded. Imaging None recorded. Medication Orders Bactrim DS 800 mg-160 mg tablet 2022 023 [email or web address] 0 Not available 3 11:58:51 Bactrim DS 800 mg-160 mg tablet 2022 023 [facility][id number], [address] [place], [address], 3 12:01:26 Valtrex 1 gram tablet 2023 024 [facility] #[id number], [address] [place], [address], 4 18:10:29 Patient TargetsNo targets recorded. Patient InstructionsNo instructions recorded. Reason for Referral None Reported. Results Created Date Observation Date Name Description Value Unit Range Abnormal Flag Note LastModifiedBy Organization Detail LastModifiedTime 03/18/2003/18/2023 URINE CULTU RE specimen description URINE Not Available [facility] [address], [place], [address], 03/20/2023 15:12:44 03/18/20 23 03/18/2023 URINE CULTU RE special requests NONE Not Available [facility] [address] [place], [address], 03/20/2023 15:12:44 03/18/20 23 03/20/2023 URINE CULTU RE culture abnormal >100, 000 COL/M L ESCHE MOISES A COLI This isola te was ident ified using Maldi -TOF syste m These AST resul ts were perfo rmed on the Micro scan ID and AST syste m Not Available [facility] [address] [place], [address], 03/20/2023 15:12:44 03/18/20 23 03/20/2023 URINE CULTU RE report status FINAL 2022 Not Available [facility] [address] [place], [address], 03/20/2023 15:12:44 03/18/20 23 03/20/2023 URINE CULTU RE organism ORGAN ISM >100, 000 COL/M L ESCHE MOISES A COLI This isola te was ident ified using Maldi -TOF syste m These AST resul ts were perfo rmed on the Micro scan ID and AST syste m Not Available [facility] [address] [place], [address], 03/20/2023 15:12:44 03/18/20 23 03/20/2023 URINE CULTU RE method METHOD MIN. INHIB. CONC. (MCG/M L) Not Available [facility] [address] [place], [address], 03/20/2023 15:12:44 03/18/20 23 03/20/2023 URINE CULTU RE amoxicillin/ clavulanic acid AMOXIC ILLIN/ CLAVUL AN SUSCEP TIBLE susceptib le Not Available [facility] [address] [place], [address], 03/20/2023 15:12:44 03/18/20 23 03/20/2023 URINE CULTU RE ampicillin AMPICI LLIN SUSCEP TIBLE susceptib le Not Available [facility] [address] [place], [address], 03/20/2023 15:12:44 03/18/20 23 03/20/2023 URINE CULTU RE ampicillin/s ulbactam AMPICI LLIN/S ULBACT AM SUSCEP TIBLE susceptib le Not Available [facility] [address] [place], [address], 03/20/2023 15:12:44 03/18/20 23 03/20/2023 URINE CULTU RE cefazolin CEFAZO RAQUEL SUSCEP TIBLE susceptib le Not Available [facility] [address] [place], [address], 03/20/2023 15:12:44 03/18/20 23 03/20/2023 URINE CULTU RE cefepime CEFEPI ME SUSCEP TIBLE susceptib le Not Available [facility] [address] [place], [address], 03/20/2023 15:12:44 03/18/20 23 03/20/2023 URINE CULTU RE ceftriaxone CEFTRI AXONE SUSCEP TIBLE susceptib le Not Available [facility] [address] [place], [address], 03/20/2023 15:12:44 03/18/20 23 03/20/2023 URINE CULTU RE ciprofloxaci n CIPROF LOXACI N SUSCEP TIBLE susceptib le Not Available [facility] [address] [place], [address], 03/20/2023 15:12:44 03/18/20 23 03/20/2023 URINE CULTU RE ertapenem ERTAPE NEM SUSCEP TIBLE susceptib le Not Available [facility] [address] [place], [address], 03/20/2023 15:12:44 03/18/20 23 03/20/2023 URINE CULTU RE gentamicin GENTAM ICIN SUSCEP TIBLE susceptib le Not Available [facility] [address] [place], [address], 03/20/2023 15:12:44 03/18/20 23 03/20/2023 URINE CULTU RE levofloxacin LEVOFL OXACIN SUSCEP TIBLE susceptib le Not Available [facility] [address] [place], [address], 03/20/2023 15:12:44 03/18/20 23 03/20/2023 URINE CULTU RE meropenem MEROPE NEM SUSCEP TIBLE susceptib le Not Available [facility] [address] [place], [address], 03/20/2023 15:12:44 03/18/20 23 03/20/2023 URINE CULTU RE nitrofuranto in NITROF URANTO IN SUSCEP TIBLE susceptib le Not Available [facility] [address] [place], [address], 03/20/2023 15:12:44 03/18/20 23 03/20/2023 URINE CULTU RE piperacillin /tazobactam PIPERA CILLIN /TAZOB AC SUSCEP TIBLE susceptib le Not Available [facility] [address] [place], [address], 03/20/2023 15:12:44 03/18/20 23 03/20/2023 URINE CULTU RE tetracycline TETRAC YCLINE SUSCEP TIBLE susceptib le Not Available [facility] [address] [place], [address], 03/20/2023 15:12:44 03/18/20 23 03/20/2023 URINE CULTU RE trimeth/sulf amethox TRIMET H/SULF AMETHO X SUSCEP TIBLE susceptib le Not Available [facility] [address] [place], [address], 03/20/2023 15:12:44 03/18/20 23 03/18/2023 urina lysis , dipst ick Leukocytes 3+ Not Available Main - [address], [address], 03/18/2023 12:05:18 03/18/20 23 03/18/2023 urina lysis , dipst ick Nitrite negati ve Not Available [facility] [address] [place] [address], [address], 03/18/2023 12:05:18 03/18/20 23 03/18/2023 urina lysis , dipst ick Urobilinogen neg Not Available [facility] [address] [place] [address], [address], 03/18/2023 12:05:18 03/18/20 23 03/18/2023 urina lysis , dipst ick Protein trace Not Available [facility] [address] [place] [address], [address], 03/18/2023 12:05:18 03/18/20 23 03/18/2023 urina lysis , dipst ick pH 6 Not Available [facility] [address] [place] [address], [address], 03/18/2023 12:05:18 03/18/20 23 03/18/2023 urina lysis , dipst ick Blood 4+ Not Available [facility] [address] [place] [address], [address], 03/18/2023 12:05:18 03/18/20 23 03/18/2023 urina lysis , dipst ick Specific [place] 1.025 Not Available [facility] [address] [place] [address], [address], 03/18/2023 12:05:18 03/18/20 23 03/18/2023 urina lysis , dipst ick Ketone neg Not Available [facility] [address] [place] [address], [address], 03/18/2023 12:05:18 03/18/20 23 03/18/2023 urina lysis , dipst ick Bilirubin trace Not Available [facility] - [facility] [address] [place] [address], [address], 03/18/2023 12:05:18 03/18/20 23 03/18/2023 urina lysis , dipst ick Glucose neg Not Available Main - [facility] [address] [place] [address], [address], 03/18/2023 12:05:18 03/18/20 23 03/18/2023 urina lysis , dipst ick Appearance clear Not [facility] [address] [place] [address], [address], 03/18/2023 12:05:18 03/18/20 23 03/18/2023 urina lysis , dipst ick Color light yellow Not Available [facility] [address] [place] [address], [address], 03/18/2023 12:05:18 03/18/20 23 03/18/2023 rapid flu (A+B) Flu negati ve Not Available [facility] [address] [place] [address], [address], 03/18/2023 12:04:44 03/18/20 23 03/18/2023 rapid SARS CoV 2 Ag, QL IA, respi rator y speci men rapid SARS CoV 2 Ag, QL IA, respiratory specimen negati ve Not Available [facility] ed [address] [place] [address], [address], 03/18/2023 12:04:39 11/03/19 24 11/03/2023 rapid flu (A+B) Flu negati ve Not Available [facility] [address] [place] [address], [address], 11/03/2023 18:19:38 11/03/19 24 11/03/2023 rapid SARS CoV 2 Ag, QL IA, respi rator y speci men rapid SARS CoV 2 Ag, QL IA, respiratory specimen negati ve Not Available [facility] [address] [place] [address], [address], 11/03/2023 18:19:30 Result Notes None recorded. Medical [...] Not available Not available Not available 03/18/2023 [id number] 2003 SNOMED Kristyn Paredes MD [address] [facility],[address], [place], [address], [employer], [employer] 3 11:50:26 Medications Name Sig Start Date [...] Address Organization Details Last Updated DateTime 03/18/2023 43294.53 g Sonal Guthrie [address] [place] [address],[address], [place], [address], [place] - [employer] 03/18/2023 17:03:15 Date Recorded Heart rate Body height Oxygen saturation Oxygen saturation in Arterial blood by Pulse oximetry Body weight Body temperature Respiratory rate Systolic blood pressure Diastolic blood pressure Provider Name and Address Organization Details Last Updated DateTime 4 67 /min 149.86 cm 96 % 96 % 57554.0 4 g 98.5 [degF] 18 /min 106 [...] SNOMED-CT Code Diagnosis ICD10 Code Diagnosis Note [id number] [facility] [address] [place] [phone] 03/18/2023 11:44:55 03/19/2023 10:13:17 Viral upper respiratory tract infection 798258662 J06.9 Advised if has eye s/s - redness/ d/c or visual changes pls call ophthalmol ogy eliazar/ continue claritin and fluticason e daily- Urinary symptoms 6697005 08 R39.9 has recurrent UTI but other [...] 2 x per day. GAEL FIELDS MD [facility] [employer] [address] [place] [phone] 11/03/2023 18:02:26 11/04/2023 12:39:09 Herpes labialis [id number] B00.1 Evaluation in the field was performed by my brew house supervisor colleague, as noted above, I provided real-time [...] Mccollum Member ID Guarantor Name 03/18/2023 1 [facility] - DOS ON OR AFTER 2022 - DUAL ELIGIBLE - HALFWAY OPTIONS AND ONE CARE (MEDICARE REPLACEMENT/ADV ANTAGE - HMO) [employer]am Fan [id number] [employer] 11/03/2023 1 [facility] - DOS ON OR AFTER 2022 - DUAL ELIGIBLE - HALFWAY OPTIONS AND ONE CARE (MEDICARE REPLACEMENT/ADV ANTAGE - HMO) [employer] Fan [id number] M[employer] Fan Notes Date Note Type Note [...] .................. .................. .................. .................. .................. .................. ............... Fuel Tank Sealer And Tester Note From Courtney Gomez: Community Fuel Tank Sealer And Tester Damaso Gomez CCA1 dispatched to a [facility] for a 57 yof C/O sinus [...] urine appeared abnormal. Urine dip in insted. [facility] consulted; pt was given 800 mg bactrim PO, and urine sample was brought to [facility] laboratory for culture. She was instructed [...] was given ( no prior visits in [place] ) but has had bactrim in the past without problems. She reports Temp 101 this am took 1 gram Tylenol- no afebrile Kristyn Paredes MD [address] [facility],[address], [place], [address], [place] [employer] 03/18/2023 17:09:19 11/03/2023 text/html HPI: Hx GERD, Anxiety, cervical deg. disc disease. .................. .................. .................. .................. .................. .................. .................. ............... CRC Nurse Triage Notes (Fiona Nieves): Comments: HPI reviewed. No additional information needed to process .................. .................. .................. .................. .................. .................. .................. ............... Fuel Tank Sealer And Tester Note From Rubi Hoffman: Sent to a [...] covid test: neg; Rapid flu test: neg; [facility] consulted and pt advised it seems lesions are cold sores. [facility] sends script to pt's pharmacy. Pt advised she should drink lots of fluid, take Tylenol for pain, and pt should start seeing improvement in 48hrs. Red flags discussed. Pt has no further questions. .................. .................. .................. .................. .................. .................. .................. ............... Disposition: Fulfilled GAEL FIELDS MD [address] [place] [address],[address], [place], [address], [employer] 11/03/2023 22:21:59 OBGyn Episode No OBEpisode recorded.
--- OUTSIDE RECORDS SUMMARY | 2024-10-27 09:25 | XMS_ITS | Encounter Summary ---
Author Organization [employer] Address [address] [facility] 7t [place] [address] Care Team Providers Care Health Club Attendant Name Role Phone Sarah Verduzco DO Primary Care Provider [phone] Reason for Visit * Reason Onset Date Comments Nurse Triage 04/20/2023 Encounter Details Date Type Department Care Team ([facility] st Contact Info) Description 04/20/2023 Telephone [facility] [address] [place], [place] [phone] Sarah Verduzco DO [address] [place], [place] [phone] Nurse Triage Social History Tobacco Use Types [...] still has not received a call from [facility] to book appt. Pt. Also has Fibromyalgia [...] Description 11/07/2024 1:30 PM EST Clinical Support [address] [address] Lauryn Cunningham RN 11/14/2024 11:15 AM EST Office Visit [address] [address] Sarah Verduzco DO [address] [place] [address] 01/25/2025 10:30 AM EDT Office Visit [facility] [address] [place] [address] Cindy Meek, OD [address] [place] [address] documented as of this encounter Visit Diagnoses Not on filedocumented in this encounter Additional Health Concerns Assessment Noted Time PHQ-9 Depression Total Score: 16 023 10:36 AM EDT documented as of this encounter Care Teams Health Club Attendant Relationship Specialty Start Date End Date Sarah Verduzco DO [address] [place] [address] PCP - General Family Medicine 11/21/15 documented as of this encounter
--- OUTSIDE RECORDS SUMMARY | 2024-10-27 09:25 | XMS_ITS | Encounter Summary ---
Author Organization [employer] Address [address] [facility] 7t [place] [address] Care Team Providers Care Desktop Support Manager Name Role Phone Sarah Verduzco DO Primary Care Provider + [phone] Reason for Visit * Reason Comments Med Refill Encounter Details Date Type Department Care Team ([facility] Contact Info) Description 03/31/2024 Refill [facility] MED[facility] [address] [place], [place] [phone] Sarah Verduzco DO [address] [place], [place] [phone] Social History Tobacco Use Types Packs/Day Years [...] Description 11/07/2024 1:30 PM EST Clinical Support [facility] [address] [place] [address] Lauryn Cunningham, LUISITO 11/14/2024 11:15 AM EST Office Visit [facility] [address] [place] [address] Sarah Verduzco DO [address] [place] [address] 01/25/2025 10:30 AM EDT Office Visit [facility] [address] [place] [address] Fantasma, Cindy, OD [address] [place] [address] documented as of this encounter Visit Diagnoses Not on filedocumented in this encounter Additional Health Concerns Assessment Noted Time PHQ-9 Depression Total Score: 24 023 8:54 AM EDT documented as of this encounter Care Teams Desktop Support Manager Relationship Specialty Start Date End Date Sarah Verduzco DO [address] [place] [address] PCP - General Family Medicine 11/21/15 documented as of this encounter
--- OUTSIDE RECORDS SUMMARY | 2024-10-27 09:25 | XMS_ITS | Encounter Summary ---
Author Organization [employer] Address [address] [facility] [address] [place] [address] Care Team Providers Care Spraying Machine Operator Name Role Phone Sarah Verduzco DO Primary Care Provider + [phone] Reason for Visit * Reason Comments Med Refill Encounter Details Date Type Department Care Team ([facility] Contact Info) Description 01/29/2024 Refill [facility] [address] [place], [place] [phone] Sarah Verduzco DO [address] [place], [place] [phone] Social History Tobacco Use Types Packs/Day Years [...] 1:30 PM EST Clinical Support [facility] [address] [place] [address] Lauryn Cunningham, LUISITO 11/14/2024 11:15 AM EST Office Visit [facility] [address] [place] [address] Sarah Verduzco DO [address] [place] [address] 01/25/2025 10:30 AM EDT Office Visit [facility] [address] [place] [address] Fantasma, Cindy, OD [address] [place] [address] documented as of this encounter Visit Diagnoses Not on filedocumented in this encounter Additional Health Concerns Assessment Noted Time PHQ-9 Depression Total Score: 24 023 8:54 AM EDT documented as of this encounter Care Teams Spraying Machine Operator Relationship Specialty Start Date End Date Sarah Verduzco DO [address] [place] [address] PCP - General Family Medicine 11/21/15 documented as of this encounter
--- OUTSIDE RECORDS SUMMARY | 2024-10-27 09:25 | XMS_ITS | Encounter Summary ---
Author Organization [employer] Address [address] [facility] [address]t [place] [address] Care Team Providers Care Machinery Cleaner Name Role Phone Sarah Verduzco DO Primary Care Provider + [phone] Reason for Visit * Reason Comments Med Refill Encounter Details Date Type Department Care Team ([facility] Contact Info) Description 10/22/2024 Refill [facility] MED[facility]INE [address] [place], [place] [phone] Sarah Verduzco DO [address] [place], [place] [phone] Social History Tobacco Use Types Packs/Day Years [...] Description 11/07/2024 1:30 PM EST Clinical Support [facility] [address] [place] [address] Lauryn Cunningham RN 11/14/2024 11:15 AM EST Office Visit [facility] [address] [place] [address] Sarah Verduzco DO [address] [place] [address] 01/25/2025 10:30 AM EDT Office Visit [facility] [address] [place] [address] Cindy Meek, OD [address] [place] [address] documented as of this encounter Visit Diagnoses Not on filedocumented in this encounter Additional Health Concerns Assessment Noted Time PHQ-9 Depression Total Score: 11 024 10:42 AM EDT documented as of this encounter Care Teams Machinery Cleaner Relationship Specialty Start Date End Date Sarah Verduzco DO [address] [place] [address] PCP - General Family Medicine 11/21/15 documented as of this encounter
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
--- OUTSIDE RECORDS SUMMARY | 2024-10-27 09:25 | XMS_ITS | Clinical Summary ---
Author Organization [employer] Address [address] [facility] [address] [place] [address] Care Team Providers Care Benzene Operator Name Role Phone DellaSarah mills Primary Care Provider + [phone] Allergies Active Allergy Reactions Criticality Noted Date [...] MORNING AND AT BEDTIME 28.35 g 5 024 Active cholecalciferol (Vitamin D-3) 50 MCG (2000 UT) capsuleIndication s:Vitamin D deficiency Take 1 capsule (50 mcg) by mouth Once per day. 30 capsule Active atorvastatin (Lipitor) 40 MG tabletIndications :Other hyperlipidemia Take 1 tablet (40 mg) by mouth Once per day. 30 tablet 024 Active butalbital-acetam inophen-caffeine 50-325-40 MG tabletIndications :Chronic [...] spasms. 60 tablet 3 024 2024 Active Arnuity Ellipta 100 MCG/ACT inhaler TAKE 1 PUFF BY MOUTH ONCE DAILY 30 each Active Stool Softener 100 MG capsule TAKE 1 CAPSULE BY MOUTH TWICE A DAY NEEDED 180 capsule Active acetaminophen (Tylenol 8 Hour) 650 MG ER tablet TAKE 1 TABLET BY MOUTH EVERY 8 (EIGHT) HOURS IF NEEDED FOR MILD PAIN. DO NOT CRUSH, CHEW, OR SPLIT. 50 tablet 1 025 Active oxyCODONE-acetami nophen (Percocet) 5-325 MG tabletIndications :Chronic bilateral low back pain with left-sided sciatica Take 1 tablet by mouth every 6 (six) hours if needed for severe pain for up to 28 days. Do not start before October 28, 2024. 112 tablet 025 2024 Active docusate sodium (Colace) 100 MG capsule TAKE 1 CAPSULE BY MOUTH TWICE A DAY NEEDED 180 capsule 1 024 2024 Discontinued fluticasone furoate (Arnuity Ellipta) 100 MCG/ACT inhaler TAKE 1 PUFF BY MOUTH ONCE DAILY 30 each 024 2024 Discontinued acetaminophen (Tylenol 8 Hour) 650 MG ER tablet TAKE 1 TABLET BY MOUTH EVERY 8 (EIGHT) HOURS IF NEEDED FOR MILD PAIN. DO NOT CRUSH, CHEW, OR SPLIT. 50 tablet 1 024 2024 Discontinued oxyCODONE-acetami nophen (Percocet) 5-325 MG tabletIndications :Chronic bilateral low back pain with left-sided sciatica Take 1 tablet by mouth every 6 (six) hours if needed for severe pain for up to 28 days. Do not start before September 27, 2024. 112 tablet 025 2024 Discontinued(R eorder (will not trigger notification to Pharmacy)) nitrofurantoin, macrocrystal-mono hydrate, (Macrobid) 100 MG capsuleIndication s:Acute cystitis with hematuria Take 1 capsule (100 mg) by mouth 2 times daily for 5 days. 10 capsule 025 2024 Active Problems Problem Noted Date Diagnosed Date Chronic, continuous use of opioids 07/07/2024 Overview (07/07/2024): Dx: Rx: Last [employer]SEMBL[employer] agreement: Tier II (visit every 3 months) [...] She request prescription to be send to [facility] pharmacy due to not being covered at [facility]. 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 Overweight (BMI 25.0-29.9) 11/21/2015 0 01/27/2023 Encounters Date Type Department Care Team Description 10/24/2024 Refill [facility] [address] [place] [address] Sarah Verduzco DO Chronic bilateral low back pain with left-sided sciatica 10/24/2024 Telephone [facility] [address] [place] [address] Sarah Verduzco DO Appointment Request 10/22/2024 Refill [facility] [address] [place] [address] Sarah Verduzco DO 10/06/2024 Refill [facility] [address] [place] [address] Sarah Verduzco DO 10/05/2024 Refill [facility] [address] [place] [address] Sarah Verduzco DO 09/30/2024 Telephone [facility] [address] [place] [address] Lennie Cuenca MA Recall Appt. 09/30/2024 Travel 09/26/2024 3:40 PM EST Office Visit [facility] [address] [place] [address] Layne Guzman, MERCEDEZ Acute cystitis with hematuria (Primary Dx); Increased frequency of urination; Chronic neck pain; Chronic bilateral low back pain without sciatica; RLQ abdominal pain 09/26/2024 Refill [facility] [address] [place] [address] Sarah Verduzco, Chronic bilateral low back pain with left-sided sciatica (Primary Dx) 09/26/2024 Telephone [facility] [address] [place] [address] Sarah Verduzco, Nurse Triage 09/21/2024 Orders Only GENERIC EXTERNAL DATA DEPARTMENT Provider, Generic External Data 09/01/2024 Telephone [facility] [facility] [address] [place] [address] Sarah Verduzco, DO 08/31/2024 Telephone [facility] [address] [place] [address] Sarah Verduzco, DO 08/31/2024 Telephone [facility] [address] [place] [address] Fallon Hawk RN MRI results 08/30/2024 Orders Only [facility] [address] [place] [address] Sarah Verduzco DO Family history of brain aneurysm (Primary Dx) 08/24/2024 Orders Only GENERIC EXTERNAL DATA DEPARTMENT Provider, Generic External Data 08/23/2024 Telephone [facility] [address] [place] [address] Sarah Verduzco, 08/22/2024 Telephone [facility] [address] [place] [address] Sarah Verduzco DO Appointment Request 08/21/2024 Refill [facility] [address] [place] [address] Sarah Verduzco, 08/18/2024 Refill [facility] [address] [place] [address] Sarah Verduzco, Chronic bilateral low back pain with left-sided sciatica 08/18/2024 Telephone [facility] [address] [place] [address] Sarah Verduzco, Appointment Request 08/16/2024 Telephone [facility] [address] [place] [address] Sarah Verduzco, 08/04/2024 Telephone [facility] [address] [place] [address] Sarah Verduzco, Results from Last 3 Months Immunizations Name Administration [...] Description 11/07/2024 1:30 PM EST Clinical Support [facility] [address] [place] [address] Lauryn Cunningham, LUISITO 11/14/2024 11:15 AM EST Office Visit [facility] [address] [place] [address] Sarah Verduzco DO [address] [place] [address] 01/25/2025 10:30 AM EDT Office Visit [facility] [address] [place] [address] Cindy Meek, OD [address] [place] [address] Health Maintenance Due Date Last Done Comments CT Colonography 1966 FIT DNA/Cologuard 1966 FIT 1966 FOBT 1966 Sigmoidoscopy 1966 Hepatitis B Vaccines (1 of 3 - 19+ 3-dose series) 1985 Pneumococcal Vaccine: 50+ Years (1 of 2 - PCV) 1985 Zoster Vaccines (1 of 2) 2016 Colonoscopy 03/24/2022 03/24/2017 Colorectal Cancer Screening 03/24/2022 COVID-19 Vaccine (3 - season) 2024 02/01/2021, 01/04/2021 Influenza Vaccine [...] this topic Meningococcal Vaccine Aged Out No lui sangel stefano eligible based on patient's age to [...] EOSIN STAIN Routine 08/24/2024 10:25 AM EST BI MAMMOGRAM SCREENING TOMOSYNTHESIS BILATERAL Routine 06/22/2024 [...] 3:58 PM EST 09/27/2024 11:22 AM EST Comment:UACC Narrative [facility] - 09/29/2024 7:48 AM EST Escherichia coli Quant > 100,000 cfu/mL Escherichia coli: Ampicillin >=32(R) Escherichia coli: Cefazolin <=1(S) Escherichia coli: Cefepime <=0.12(S) Escherichia coli: Ceftriaxone <=0.25(S) Escherichia coli: Ciprofloxacin 1(R) Escherichia coli: Gentamicin <=1(S) Escherichia coli: Nitrofurantoin <=16(S) Escherichia coli: Trimethoprim/Sulfamethoxazole >=320(R) Specimen Source: Urine clean catch us [facility] MICROBIOLOGY - GENERAL ORDER ZACH Final Result [facility] [address] [place] [phone] * (ABNORMAL) POCT Urinalysis (09/26/2024 2:43 [...] EST Narrative 09/23/2024 9:33 AM EST ? [facility] ?[address] ?[place] [address] ? Magnetic Resonance Report ? Signed ? Patient: Fan,Miryam ?MR#: [id number] ?? 06 ? : 1965 ?Acct:[id number] ? Age/Sex: 58 / F ?ADM Date: /08/25 ? Loc: HO.US ? Attending Dr: Noreen Salazar MD ? Ordering Physician: Sraah Verduzco DO ?? Date of Service: 09/21/24 ?? Procedure(s): MR angio head wo con ?? Accession Number(s): [id number] ? cc: Sarah Verduzco DO ? EXAMINATION: MR BRAIN ANGIOGRAPHY WITHOUT IV CONTRAST ? HISTORY: sister with brain aneurysm requiring intervention. ? TECHNIQUE: ??2D pijy-ak-eqtyoo MR angiography of the head was performed. [...] DD/ 0930 ? TD/TT: 09/21/24 0950 ? Assistant Production Editor: ? Procedure Note Nitin Ayala - 09/23/[address] [address] Magnetic Resonance Report Signed Patient: Miryam FanMR#: [id number] 06 : 1965Acct:[id number] Age/Sex: 58 / FADM Date: 09/21/24 Loc: HO. Attending Dr: Noreen Salazar MD Ordering Physician: Sarah Verduzco DO Date of Service: 09/21/24 Procedure(s): MR angio head wo con Accession Number(s): [id number] cc: Sarah Verduzco DO EXAMINATION: MR BRAIN ANGIOGRAPHY WITHOUT IV CONTRAST HISTORY: sister with brain aneurysm requiring intervention. TECHNIQUE: 2D fbdw-pb-itpqkt MR angiography of the head was performed. [...] MD in OV> 09/23/24930 DD/ 9 TD/TT: 09/21/24 0950 Assistant Production Editor: Sarah Verduzco DO IMG MRI PROCEDURES Final Res ult * Cell Block (09/21/2024 8:19 AM EST) 09/21/2024 8:19 AM EST 09/21/2024 11:55 AM EST [facility] - 09/26/2024 6:23 PM EST ----- ------- Name: Miryam Fan ? Age/Sex: 58/F ? : 1965 Unit#: [id number] ?? Attend Dr: Noreen Salazar MD ?Re09/21/24 ?Status: DEP REF ? Location: HO.US ? Disch: ? ----- ------- SPEC : [id number] ?RECD: 09/21/24-1154 ? STATUS: ??SOUT ? REQ NUM: [id number] ? PILI: 09/21/24-818 ? SUBM DR: Noreen Salazar MD ? ENTERED: ??09/21/24-1403 ?SP TYPE: Cytology ? OTHR DR: Sarah Verduzco DO ? ORDERED: ??Cell Block, Fine Ndl Asp ? Diagnosis ?? Thyroid, left superior nodule, fine needle aspiration biopsy (cytology and cell block): ? -Gilson System Classification:? Benign (category 2) ? -Description:? [...] Copies To: ?? Sarah Verduzco DO ?? [facility] ?? [address] ?? [place] [address] ?? [phone] ?? Noreen Salazar MD ?? [facility] Endocrinology ?? [address] [facility] [address] ?? [place] [address] ?? [phone] ?? [email or web address] ----- ------- Signed (signature on file) Tammy Velasquez 09/26/241822 ? ----- ------- ? END OF REPORT ? us Generic External Data Provider LAB CYTOLOGY INOCENCIA HDEZ Final Result [facility] [address] [place] [address] [phone] * Hematoxylin and Eosin Stain (08/24/2024 10:25 AM EST) 08/24/2024 10:2 5 AM EST 08/24/2024 12:07 PM EST Narrative [facility] - 08/26/2024 11:57 AM EST ----- ------- Name: Miryam Fan ? Age/Sex: 58/F ? : 1965 Unit#: [id number] ?? Attend Dr: Jensen Garvin MD ?Re08/24/24 ?Status: DEP SDC ? Location: HO.SSS ?Disch: ? ----- ------- SPEC : [id number] ? RECD: 08/24/24-1206 ? STATUS: ??SOUT ? REQ NUM: [id number] ? PILI: 08/24/24-5 ? SUBM DR: Jensen Garvin MD ? ENTERED: ??08/24/24-1214 ?SP TYPE: Surgical ? OTHR DR: Sarah [...] ? Age/Sex: 58/F ? : 1965 Unit#: [id number] ?? Attend Dr: Jensen Garvin MD ?Re08/24/24 ?Status: DEP SDC ? Location: HO.SSS ?Disch: ? ----- ------- SPEC : [id number] ? RECD: 08/24/24-1206 ? STATUS: ??SOUT ? REQ NUM: [id number] ? PILI: 08/24/24-1024 ? SUBM DR: Jensen Garvin MD ? ENTERED: ??08/24/24-1214 ?SP TYPE: Surgical ? OTHR DR: Sarah [...] Copies To: ?? Jensen Garvin MD ?? [facility] Gastroenterology Services ?? [address] ?? [place] [address] ?? [phone] ? CONTINUED ON NEXT PAGE ----- ------- Name: Miryam Fan ? Age/Sex: 58/F ? : 1965 Unit#: [id number] ?? Attend Dr: Jensen Garvin MD ?Re08/24/24 ?Status: DEP SDC ? Location: HO.SSS ?Disch: ? ----- ------- SPEC : [id number] ? RECD: 08/24/24-1207 ? STATUS: ??SOUT ? REQ NUM: [id number] ? PILI: 08/24/24-1025 ? SUBM DR: Jensen Garvin MD ? ENTERED: ??08/24/24-5 ?SP TYPE: Surgical ? OTHR DR: Sarah Verduzco DO ? ORDERED: ??HE Stain/21, Gross Micro L4/8, IHC, Special st. 2/2, H. pylori, AB/PAS/2 ? Copies To: ??(Continued) ?? Sarah Verduzco DO ?? [facility] ?? [address] ?? [place] [address] ?? [phone] ----- ------- Signed (signature on file) Kaleb Gipson MD 08/26/24 1157 ? ----- ------- ? END OF REPORT ? us Generic External Data Provider LAB BLOOD ORDERAB LES Final Result [facility] [address] [place] [address] [phone] * BI Mammogram Screening Tomosynthesis Bilateral (06/22/2024 9:45 AM EDT) Anatomical Region Laterality Modality Breast Bilateral Mammography 06/22/2024 9:45 AM EDT Narrative 07/04/2024 6:01 PM EDT ? [facility] ? [address] ?[place] [address] ? Mammography Report ? Signed ? Patient: Meng,Miryam ?MR#: [id number] ?? 06 ? : 1965 ?Acct:[id number] ? Age/Sex: 58 / F ?ADM Date: 10/09/24 ? Loc: HO.MAMMO ? Attending Dr: Sarah Verduzco DO ? Ordering Physician: Sarah Verduzco DO ?Results: 1N ?? egative ? Date of Service: 06/22/24 ?Follow Up: 1 Year From Orig ?? inal Mammogram ? Procedure(s): MM tomosynthesis screening BI ?? Accession Number(s): [id number] ? cc: Sarah Verduzco DO ? EXAMINATION: [...] ??Mone Valerio DO ??07/04/2024 05:57 PM EDT ?? RP ? Dictated By: ?Mone Valerio DO ? Signed By: ?<Electronically signed by Mone Valerio, DO in OV> ? 07/04/24 1757 ? DD/ 0945 ? TD/TT: 06/22/24 0958 ? Assistant Production Editor: ? Procedure Note Donotmichelleter, Image - [facility] [address] [place] [address] Mammography Report Signed Patient: Miryam FanMR#: [id number] 06 : 1965Acct:[id number] Age/Sex: 58 / FADM Date: 06/22/24 Loc: HO.MAMMO Attending Dr: Sarah Verduzco DO Ordering Physician: Sarah Verduzcoults: 1N egative Date of Service: 06/22/24Follow Up: 1 Year From Orig inal Mammogram Procedure(s): MM tomosynthesis screening BI Accession Number(s): [id number] cc: Sarah Verduzco DO EXAMINATION: MM SCREENING [...] Mone Valerio DO 07/04/2024 05:57 PM EDT Dictated By: Mone Valerio DO Signed By: <Electronically signed by Mone Valerio DO in OV> 07/04/24 3517 DD/ 0945 TD/TT: 06/22/24 0958 Assistant Production Editor: Sarah Verduzco DO IMG BI PROCEDURES Edited Res ult - Final * Hepatitis C Antibody with Reflex to HCV, RNA, Quantitative, Real-Time PCR (05/04/2024 12:27 PM EDT) Hepatitis C Antibody Nonreactive Nonreactive [facility] Comment:Antibodies to HCV no t detected; does not exclude early acuteHCV infection. Blood Venous blood specimen / Unknown 05/04/2024 12:27 PM EDT 05/04/2024 1:01 PM EDT Sarah Verduzco DO LAB BLOOD ORDERABLES Final R esult [facility] [address] [place] [phone] * HIV-1/2 Antigen and Antibodies, Fourth Generation, with Reflexes (05/04/2024 12:27 PM EDT) HIV AB/AG Nonreactive Nonreactive [facility] Comment:HIV-1 p24 Ag and/or HIV-1/HIV-2 Ab not detected.A test result that is nonreactive does not exclude thepossibility of exposure to or infection with HIV-1 and/orHIV-2. Nonreactive results in this assay for individualswith prior exposure to HIV-1 and/or HIV-2 may be due toantigen and antibody levels that are below the limit ofdetection of this assay.The [employer] HIV Ag/Ab Combo assay result andsupplemental assay results should be interpreted inconjunction with the patient's clinical presentation,history and other laboratory results. If the results areinconsistent with clinical evidence, additional testing issuggested to confirm the result. Blood Venous blood specimen / Unknown 05/04/2024 12:27 PM EDT 05/04/2024 1:01 PM EDT Sarah Verduzco DO LAB BLOOD ORDERABLES Final R esult [facility] [address] [place] [address] [phone] * Hm Colonoscopy (03/24/2017 8:58 AM EDT) us Historical Provider HEALTH MAINTENANCE Final Result from Last 3 Months or Most Recently Relevant to Health Maintenance Insurance [facility] Care Teams Benzene Operator Relationship Specialty Start Date End Date Sarah Verduzco DO [address] [place] [id number] PCP - General Family Medicine 11/21/15
--- OUTSIDE RECORDS SUMMARY | 2024-10-27 09:25 | XMS_ITS | Encounter Summary ---
Author Organization [facility] Address [address] [place] [address] Care Team Providers Care Vascular Ultrasound Technologist Name Role Phone Sraah Verduzco Primary Care Provider [phone] Encounter Details Date Type Department Care Team ([facility] Contact Info) Description 09/27/2024 Telephone Neurosurgery [facility] [address] [place] [phone] Mimi Newsome PA [address], [address] [place] [address] Social History Tobacco Use Types Packs/Day Years [...] on filedocumented in this encounter Care Teams Vascular Ultrasound Technologist Relationship Specialty Start Date End Date Sarah Verduzco DO [address] [place] [address] PCP - General Internal Medicine 02/09/18 documented as of this encounter
--- OUTSIDE RECORDS SUMMARY | 2024-10-27 09:25 | XMS_ITS | Encounter Summary ---
Author Organization [facility] Address [address] [place] [address] Care Team Providers Care Building Energy Retrofit Technician Name Role Phone Sarah Verduzco DO Primary Care Provider Aura Kramer MD Unavailable [phone] Mimi Newsome PA-C Unavailable Kaleb Tripathi PA-C Unavailable [phone] Encounter Details Date Type Department Care Team Description 12/06/2021 Transfer Records [facility] Neurosurgery [place] [address] [phone] Kaleb Tripathi PA-C [address] [address] Social History Tobacco Use Types Packs/Day Years Used Date Smoking Tobacco: Former Smokeless Tobacco: Never Sex Assigned at Date Recorded Not on file documented as of this encounter Plan of Treatment Not on file documented as of this encounter Visit Diagnoses Not on filedocumented in this encounter Care Teams Building Energy Retrofit Technician Relationship Specialty Start Date End Date Sarah Verduzco DO PCP - General Internal Medicine 02/09/18 Aura Pollock MD [address] [phone] Surgeon Neurosurgery 12/09/21 Mimi Newsome PA-C [address] [address] Specialist Neurosurgery 12/09/21 Kaleb Tripathi PA-C [address] [facility] [address] [place] [address] Specialist Neurosurgery 12/09/21 documented as of this encounter
--- OUTSIDE RECORDS SUMMARY | 2024-10-27 09:25 | XMS_ITS | Encounter Summary ---
Author Organization [employer] Address [address] [facility] 7[address] [place] [address] Care Team Providers Care Loss Prevention/Safety District Manager Name Role Phone Sarah Verduzco DO Primary Care Provider [phone] Reason for Visit * Reason Onset Date Comments Med Refill 03/20/2023 Encounter Details Date Type Department Care Team (Late st Contact Info) Description 03/20/2023 Telephone [facility] [address] [place], [place] [phone] Sarah Verdzuco DO [address] [place], [place] [phone] Med Refill Social History Tobacco Use Types [...] 50 mg tablet to be sent to [facility]/pharmacy #[id number] -[place], [place] - [address] documented in this encounter Plan of Treatment Upcoming Encounters Date Type Department Care Team (Late st Contact Info) Description 11/07/2024 1:30 PM EST Clinical Support [facility] [address] [place] [address] Lauryn Cunningham, RN 11/14/2024 11:15 AM EST Office Visit [facility] [address] [place] [address] Sarah Verduzco DO [address] [place] [address] 01/25/2025 10:30 AM EDT Office Visit [facility] OPTOMET[facility] [address] [place], [place] [phone] Cindy Meek, OD [address] [place] [address] documented as of this encounter Visit Diagnoses Not on filedocumented in this encounter Additional Health Concerns Assessment Noted Time PHQ-9 Depression Total Score: 16 01/27/ 023 10:36 AM EDT documented as of this encounter Care Teams Loss Prevention/Safety District Manager Relationship Specialty Start Date End Date Sarah Verduzco DO [address] [place], [place] [phone] PCP - General Family Medicine 11/21/15 documented as of this encounter
--- OUTSIDE RECORDS SUMMARY | 2024-10-27 09:25 | XMS_ITS | Encounter Summary ---
Author Organization [employer] Address [address] [facility] 7t [place] [address] Care Team Providers Care Fire Hydrant Operator Name Role Phone Sarah Verduzco DO Primary Care Provider [phone] Reason for Visit * Reason Onset Date Comments Nurse Triage 11/16/2023 Encounter Details Date Type Department Care Team ([facility] st Contact Info) Description 11/16/2023 Telephone [facility] [address] [place], [place] [phone] Sarah Verduzco DO [address] [place], [place] [phone] Nurse Triage Social History Tobacco Use Types [...] this time. Pt [facility] . Pt agrees with this plan . [...] 1:30 PM EST Clinical Support [facility] [address] [place] [address] Lauryn Cunningham RN 11/14/2024 11:15 AM EST Office Visit [facility] [address] [place] [address] Sarah Verduzco DO [address] [place] [address] 01/25/2025 10:30 AM EDT Office Visit [facility] OPT[facility] [address] [place] [address] Fantasma, Cindy, OD [address] [place] [address] documented as of this encounter Visit Diagnoses Not on filedocumented in this encounter Additional Health Concerns Assessment Noted Time PHQ-9 Depression Total Score: 24 023 8:54 AM EDT documented as of this encounter Care Teams Fire Hydrant Operator Relationship Specialty Start Date End Date Sarah Verduzco DO [address] [place] [address] PCP - General Family Medicine 11/21/15 documented as of this encounter
--- OUTSIDE RECORDS SUMMARY | 2024-10-27 09:25 | XMS_ITS | Encounter Summary ---
Author Organization [employer] Address [address] [facility] 7t [place] [address] Care Team Providers Care Crystalizer Operator Name Role Phone Sarah Verduzco DO Primary Care Provider + [phone] Reason for Visit * Reason Comments Med Refill Encounter Details Date Type Department Care Team (Late Contact Info) Description 04/19/2023 Refill [facility] [address] [place] [phone] Sarah Verduzco DO [address] [place] [phone] Chronic GERD Social History Tobacco Use Types [...] Description 11/07/2024 1:30 PM EST Clinical Support [facility] [address] [place] [phone] Lauryn Cunningham RN 11/14/2024 11:15 AM EST Office Visit [address] [phone] Sarah Verduzco DO [address] [place] [address] 01/25/2025 10:30 AM EDT Office Visit [facility] [address] [place], [place] [phone] Fantasma, Cindy, OD [address] [place], [place] [phone] documented as of this encounter Visit Diagnoses Diagnosis Chronic GERD documented in this encounter Additional Health Concerns Assessment Noted Time PHQ-9 Depression Total Score: 023 10:36 AM EDT documented as of this encounter Care Teams Crystalizer Operator Relationship Specialty Start Date End Date Sarah Verduzco DO [address] [place] [address] PCP - General Family Medicine 11/21/15 documented as of this encounter
--- OUTSIDE RECORDS SUMMARY | 2024-10-27 09:25 | XMS_ITS | Encounter Summary ---
Author Organization [employer] Address [address] [facility] 7t [place] [address] Care Team Providers Care Comic Artist Name Role Phone Sarah Verduzco DO Primary Care Provider + [phone] Reason for Visit * Reason Onset Date Comments Appointment Request 04/04/2024 Encounter Details Date Type Department Care Team ([facility] Contact Info) Description 04/04/2024 Telephone [facility] MEDICINE 230 [place], [place] [phone] Sarah Verduzco DO 230 [place], [place] [phone] Appointment Request Social History Tobacco Use Types [...] encounter Miscellaneous Notes * Telephone Encounter - Martin Diggs - 04/04/2024 11:04 AM EDT Tc from pt requesting to reschedule tomorrows pain management appt 04/05. Please contact pt at [phone]. documented in this encounter Plan of Treatment Upcoming Encounters Date Type Department Care Team (Late st Contact Info) Description 11/07/2024 1:30 PM EST Clinical Support [facility] 230 [place] [address] Lauryn Cunningham RN 11/14/2024 11:15 AM EST Office Visit [facility] 230 [place] [address] Sarah Verduzco DO 230 [place] [address] 01/25/2025 10:30 AM EDT Office Visit [facility] OPTOMETRY [address] [place] [address] Cindy Meek, OD 230 [place] [address] documented as of this encounter Visit Diagnoses Not on filedocumented in this encounter Additional Health Concerns Assessment Noted Time PHQ-9 Depression Total Score: 24 023 8:54 AM EDT documented as of this encounter Care Teams Comic Artist Relationship Specialty Start Date End Date Sarah Verduzco DO 230 [place] [address] PCP - General Family Medicine 11/21/15 documented as of this encounter
--- OUTSIDE RECORDS SUMMARY | 2024-10-27 09:25 | XMS_ITS | Encounter Summary ---
Author Organization [facility] Address [address] [facility] [place] [address] Care Team Providers Care Client Solutions Specialist Name Role Phone Sarah Verduzco DO Primary Care Provider Aura Kramer MD Unavailable [phone] Mimi Newsome PA-C Unavailable [phone] Kaleb Tripathi PA-C Unavailable [phone] Encounter Details Date Type Department Care Team Description 12/17/2021 SCAN [facility] Medical [facility] Neurosurgery [place] [address] [address] Kaleb Tripathi PA-C [address] [phone] Social History Tobacco Use Types Packs/Day Years Used Date Smoking Tobacco: Former Smokeless Tobacco: Never Sex Assigned at Date Recorded Not on file COVID-19 Exposure Response Date Recorded In the last 10 days, have yo u been in contact with someone who was confirmed or suspected to have Coronavirus/COVID-19? No / Unsure 12/13/2021 1:33 PM EDT documented as of this encounter Plan of Treatment Not on file documented as of this encounter Visit Diagnoses Not on filedocumented in this encounter Care Teams Client Solutions Specialist Relationship Specialty Start Date End Date Sarah Verduzco DO PCP - General Internal Medicine 02/09/18 Aura Pollock MD [address] [phone] Surgeon Neurosurgery 12/09/21 Mimi Newsome PA-C 175 [facility] [address] [place] [address] Specialist Neurosurgery 12/09/21 Kaleb Tripathi PA-C 175 [facility] [address] [place] [address] Specialist Neurosurgery 12/09/21 documented as of this encounter
--- OUTSIDE RECORDS SUMMARY | 2024-10-27 09:25 | XMS_ITS | Encounter Summary ---
Author Organization [facility] Address [address] [facility] [place] [address] Care Team Providers Care Seed Potato Arranger Name Role Phone Sarah Verduzco DO Primary Care Provider Aura Kramer MD Unavailable [phone] Mimi Newsome PA-C Unavailable [phone] Kaleb Tripathi PA-C Unavailable [phone] Encounter Details Date Type Department Care Team Description 12/20/2021 Release of Information Medical Records [address] [place] [id number] Abstract, Provider Social History Tobacco Use Types Packs/Day Years [...] on filedocumented in this encounter Care Teams Seed Potato Arranger Relationship Specialty Start Date End Date Sarah Verduzco DO PCP - General Internal Medicine 02/09/18 Aura Pollock MD 175 [facility] [address] [place] [address] Surgeon Neurosurgery 12/09/21 Mimi Newsome PA-C [address] [address] Specialist Neurosurgery 12/09/21 Kaleb Tripathi PA-C 175 [facility] [address] [place] [address] Specialist Neurosurgery 12/09/21 documented as of this encounter
--- OUTSIDE RECORDS SUMMARY | 2024-10-27 09:25 | XMS_ITS | Encounter Summary ---
Author Organization [employer] Address 75 [facility] 7t [place] [address] Care Team Providers Care Security Technician Name Role Phone Sarah Verduzco DO Primary Care Provider + [phone] Reason for Visit * Reason Onset Date Comments Appointment Request 08/22/2024 Encounter Details Date Type Department Care Team ([facility] Contact Info) Description 08/22/2024 Telephone [facility] MEDICINE 230 [place], [place] [phone] Sarah Verduzco DO 230 [place], [place] [phone] Appointment Request Social History Tobacco Use Types [...] DME RX Contact: Jerry, On behalf of [facility]'s Care Management staff [facility], we are requesting Durable Medical Equipment (DME) for the pt .I can facilitate the ordering process through our approved vendor (such as [employer], [employer], etc.), but a prescription for the DME item(s) is needed. The DME item(s)requested are - Shower chair - Cane Kindly send the prescriptions to ([email or web address]) for processing the DME referral on behalf of the patient. Please also provide the patient's current Height and Weight. Should you have any inquiries regarding this request, feel free to contact me [phone]. Thank you for your assistance in this matter. * Telephone Encounter - Priya Fritz RN - 09/01/2024 10:02 AM EST ----- Message from Lisa Kenny sent at 08/31/2024 3:20 PM EST ----- Regarding: DME RX Contact: Jerry, On behalf of [facility]'s Care Management staff [facility], we are requesting Durable Medical Equipment (DME) for the pt .I can facilitate the ordering process through our approved vendor (such as [employer], [employer], etc.), but a prescription for the DME item(s) is needed. The DME item(s)requested are - Shower chair - Cane Kindly send the prescriptions to ([email or web address]) for processing the DME referral on behalf of the patient. Please also provide the patient's current Height and Weight. Should you have any inquiries regarding this request, feel free to contact me [phone]. Thank you for your assistance in this matter. * Telephone Encounter - Thuy Nails - 08/22/2024 11:20 AM EST Tc from pt requesting to r/s pain management appointment from 08/23. Contact pt at [phone] documented in this encounter Plan of Treatment Upcoming Encounters Date Type Department Care Team (Late st Contact Info) Description 11/07/2024 1:30 PM EST Clinical Support [facility] MEDICINE [address] [place] [phone] Lauryn Cunningham RN 11/14/2024 11:15 AM EST Office Visit [facility] MEDICINE 230 [place] [address] Sarah Verduzco DO 230 [place] [address] 01/25/2025 10:30 AM EDT Office Visit [facility] OPTOMETRY [address] [place], [place] [phone] Cindy Meek, ALBINA 230 [place], [place] [phone] documented as of this encounter Visit Diagnoses Not on filedocumented in this encounter Additional Health Concerns Assessment Noted Time PHQ-9 Depression Total Score: 11 024 10:42 AM EDT documented as of this encounter Care Teams Security Technician Relationship Specialty Start Date End Date Sarah Verduzco DO 230 [place], [place] [phone] PCP - General Family Medicine 11/21/15 documented as of this encounter
--- OUTSIDE RECORDS SUMMARY | 2024-10-27 09:25 | XMS_ITS | Encounter Summary ---
Author Organization [facility] Address [address] [facility] [place] [address] Care Team Providers Care Flat Surfacer Name Role Phone Sarah Verduzco DO Primary Care Provider Aura Kramer MD Unavailable [phone] Mimi Newsome PA-C Unavailable Kaleb Tripathi PA-C Unavailable [phone] Encounter Details Date Type Department Care Team Description 12/16/2021 SCAN [facility] Neurosurgery [place] [address] [address] Kaleb Tripathi PA-C [address] [phone] Social History Tobacco Use Types Packs/Day Years [...] on filedocumented in this encounter Care Teams Flat Surfacer Relationship Specialty Start Date End Date Sarah Verduzco DO PCP - General Internal Medicine 02/09/18 Aura Pollock MD [address] [phone] Surgeon Neurosurgery 12/09/21 Mimi Newsome PA-C 175 [facility] [address] [place] [address] Specialist Neurosurgery 12/09/21 Kaleb Tripathi PA-C 175 [facility] [address] [place] [address] Specialist Neurosurgery 12/09/21 documented as of this encounter
--- OUTSIDE RECORDS SUMMARY | 2024-10-27 09:25 | XMS_ITS | Encounter Summary ---
Author Organization [employer] Address [address] [facility] 7t [place] [address] Care Team Providers Care Resource Management Planner Name Role Phone Sarah Verduzco DO Primary Care Provider + [phone] Reason for Visit * Reason Comments Med Refill Encounter Details Date Type Department Care Team ([facility] Contact Info) Description 08/21/2024 Refill [facility] MEDICINE 230 [place], [place] [phone] Sarah Verduzco DO 230 [place], [place] [phone] Social History Tobacco Use Types Packs/Day Years [...] Description 11/07/2024 1:30 PM EST Clinical Support [facility] MEDICINE 230 [place] [address] Lauryn Cunningham RN 11/14/2024 11:15 AM EST Office Visit [facility] MEDICINE 230 [place] [address] Sarah Verduzco DO 230 [place] [address] 01/25/2025 10:30 AM EDT Office Visit [facility] OPTOMETRY [address] [place] [address] Cindy Meek, OD 230 [place] [address] documented as of this encounter Visit Diagnoses Not on filedocumented in this encounter Additional Health Concerns Assessment Noted Time PHQ-9 Depression Total Score: 11 024 10:42 AM EDT documented as of this encounter Care Teams Resource Management Planner Relationship Specialty Start Date End Date Sarah Verduzco DO [address] [place] [address] PCP - General Family Medicine 11/21/15 documented as of this encounter
--- OUTSIDE RECORDS SUMMARY | 2024-10-27 09:25 | XMS_ITS | Encounter Summary ---
Author Organization [employer] [facility] Address [address] [facility] 7t [place] [address] Care Team Providers Care Bull Wheel Worker Name Role Phone Sarah Verduzco DO Primary Care Provider + [phone] Reason for Visit * Reason Comments Med Refill Encounter Details Date Type Department Care Team (Late st Contact Info) Description 12/04/2022 Refill [facility] MEDICINE [address] [place] [address] Sarah Verduzco DO 230 [place] [address] Social History Tobacco Use Types Packs/Day Years [...] Description 11/07/2024 1:30 PM EST Clinical Support [address] [address] Lauryn Cunningham RN 11/14/2024 11:15 AM EST Office Visit [address] [address] Sarah Verduzco DO [address] [place] [address] 01/25/2025 10:30 AM EDT Office Visit [facility] OPTOMETRY [address] [place] [address] Cnidy Meek, ALBINA 230 [place] [address] documented as of this encounter Visit Diagnoses Not on filedocumented in this encounter Care Teams Bull Wheel Worker Relationship Specialty Start Date End Date Sarah Verduzco DO 230 [place] [address] PCP - General Family Medicine 11/21/15 documented as of this encounter
--- OUTSIDE RECORDS SUMMARY | 2024-10-27 09:25 | XMS_ITS | Encounter Summary ---
Author Organization [facility] Address [address] [facility] [place] [address] Care Team Providers Care Welfare Interviewer Name Role Phone Sheila Eubanks MD Primary Care Provider Michael Thapa, Pcp Primary Care Provider Sarah Mckay DO Primary Care Provider Unava ilAura Freeman MD Unavailable [phone] Mimi Newsome PA-C Unavailable [phone] Kaleb Tripathi PA-C Unavailable [phone] Encounter Details Date Type Department Care Team Description 09/11/2017 Transfer Records Medical Records [address] [place] [address] Abstract, Provider Social History Tobacco Use Types Packs/Day Years Used Date Smoking Tobacco: Former Smokeless Tobacco: Never Sex Assigned at Date Recorded Not on file documented as of this encounter Plan of Treatment Not on file documented as of this encounter Visit Diagnoses Not on filedocumented in this encounter Care Teams Welfare Interviewer Relationship Specialty Start Date End Date Sheila Eubanks MD PCP - General Internal Medicine 05/28/17 01/21/18 Elier, Babar PCP - General Internal Medicine 01/22/18 02/08/18 Sarah Verduzco DO PCP - General Internal Medicine 02/09/18 Aura Pollock MD [address] [phone] Surgeon Neurosurgery 12/09/21 Mimi Newsome PA-C [address] [address] Specialist Neurosurgery 12/09/21 Kaleb Tripathi PA-C 175 [facility] [address] [place] [address] Specialist Neurosurgery 12/09/21 documented as of this encounter
--- OUTSIDE RECORDS SUMMARY | 2024-10-27 09:25 | XMS_ITS | Encounter Summary ---
Author Organization [employer] Address [address] [facility] [address] 7t [place] [address] Care Team Providers Care Pavilion Cutter Name Role Phone DaxSarah Primary Care Provider + [phone] Encounter Details Date Type Department Care Team (Late st Contact Info) Description 12/22/2023 Orders Only [facility] MEDICINE 230 [place] [address] ProviderTristan MD Social History Tobacco Use Types [...] Description 11/07/2024 1:30 PM EST Clinical Support [facility] MEDICINE 230 [place] [address] Lauryn Cunningham RN 11/14/2024 11:15 AM EST Office Visit [facility] MEDICINE 230 [place] [address] Sarah Verduzco DO 230 [place] [address] 01/25/2025 10:30 AM EDT Office Visit [facility] OPTOMETRY [address] [place] [address] Fantasma, Cindy, OD 230 [place] [address] documented as of this encounter Procedures Procedure [...] documented as of this encounter Care Teams Pavilion Cutter Relationship Specialty Start Date End Date Sarah Verduzco DO 230 [place] [address] PCP - General Family Medicine 11/21/15 documented as of this encounter
--- OUTSIDE RECORDS SUMMARY | 2024-10-27 09:25 | XMS_ITS | Encounter Summary ---
Author Organization [employer] Address 75 [facility] 7t [place] [address] Care Team Providers Care Nurse Emergency Room Name Role Phone Sarah Verduzco DO Primary Care Provider + [phone] Reason for Visit * Reason Comments Med Refill Encounter Details Date Type Department Care Team ([facility] Contact Info) Description 01/05/[address] [facility] MEDICINE 230 [place], [place] [phone] Sarah Verduzco DO 230 [place], [place] [phone] Social History Tobacco Use Types Packs/Day Years [...] 1:30 PM EST Clinical Support [facility] MEDICINE [address] [place] [address] Lauryn Cunningham, LUISITO 11/14/2024 11:15 AM EST Office Visit [facility] MEDICINE [address] [place] [address] Sarah Verduzco DO 230 [place] [address] 01/25/2025 10:30 AM EDT Office Visit [facility] OPTOMETRY [address] [place] [address] Fantasma, Cindy, OD 230 [place] [address] documented as of this encounter Visit Diagnoses Not on filedocumented in this encounter Additional Health Concerns Assessment Noted Time PHQ-9 Depression Total Score: 24 023 8:54 AM EDT documented as of this encounter Care Teams Nurse Emergency Room Relationship Specialty Start Date End Date Sarah Verduzco DO 230 [place] [address] PCP - General Family Medicine 11/21/15 documented as of this encounter
--- OUTSIDE RECORDS SUMMARY | 2024-10-27 09:26 | XMS_ITS | Encounter Summary ---
Author Organization [employer] Address [address] [facility] [address] 7[address] [place] [address] Care Team Providers Care Locum Tenens Hospitalist Name Role Phone DellaSarah mills Primary Care Provider + [phone] Encounter Details Date Type Department Care Team [...] Description 11/07/2024 1:30 PM EST Clinical Support [facility] MEDICINE [address] [place] [address] Lauryn Cunningham RN 11/14/2024 11:15 AM EST Office Visit [facility] MEDICINE [address] [place] [address] Sarah Verduzco DO 230 [place] [address] 01/25/2025 10:30 AM EDT Office Visit [facility] OPTOMETRY [address] [place] [address] Fantasma, Cindy, OD 230 [place] [address] documented as of this encounter Visit Diagnoses Not on filedocumented in this encounter Additional Health Concerns Assessment Noted Time PHQ-9 Depression Total Score: 11 024 10:42 AM EDT documented as of this encounter Care Teams Loc[employer] Ten[employer] Hospitalist Relationship Specialty Start Date End Date Sarah Verduzco DO [address] [place] [address] PCP - General Family Medicine 11/21/15 documented as of this encounter
--- OUTSIDE RECORDS SUMMARY | 2024-10-27 09:26 | XMS_ITS | Encounter Summary ---
Author Organization [employer] Address [address] [facility] 7t [place] [address] Care Team Providers Care Powderman Name Role Phone Sarah Verduzco DO Primary Care Provider + [phone] Reason for Visit * Reason Comments Med Refill Encounter Details Date Type Department Care Team ([facility] Contact Info) Description 10/05/2024 Refill [facility] MEDICINE 230 [place], [place] [phone] Sarah Verduzco DO 230 [place], [place] [phone] Social History Tobacco Use Types Packs/Day Years [...] 1:30 PM EST Clinical Support [facility] MEDICINE [address] [place] [address] Lauryn Cunningham RN 11/14/2024 11:15 AM EST Office Visit [facility] MEDICINE 230 [place] [address] Sarah Verduzco DO 230 [place] [address] 01/25/2025 10:30 AM EDT Office Visit [facility] OPTOMETRY [address] [place] [address] Cindy Meek, OD 230 [place] [address] documented as of this encounter Visit Diagnoses Not on filedocumented in this encounter Additional Health Concerns Assessment Noted Time PHQ-9 Depression Total Score: 11 024 10:42 AM EDT documented as of this encounter Care Teams Powderman Relationship Specialty Start Date End Date Sarah Verduzco DO [address] [place] [place] [address] PCP - General Family Medicine 11/21/15 documented as of this encounter
--- OUTSIDE RECORDS SUMMARY | 2024-10-27 09:26 | XMS_ITS | Clinical Summary ---
Author Organization [facility] Address [address] [place] [address] Phone Care Team Providers Care Director Of Regional Sales Name Role Phone Sarah Verduzco Primary Care Provider [phone] Allergies Active Allergy Reactions Criticality Noted Date Comments Ibuprofen Diarrhea 04/19/2018 Other Reaction(s): GI upset Other reaction(s): Upset stomach Other reaction(s): Not available Other reaction(s): GI upset Iodinated Contrast Media 12/13/2021 Medications fluticasone furoate (Arnuity Ellipta) 100 mcg/actuation blister with device inhaler 4 Active acetaminophen (TYLENOL 8 HOUR) 650 mg 8 hr tablet TAKE 1 TABLET BY MOUTH EVERY 8 HOURS NEEDED FOR PAIN OR FEVER 2 Active baclofen (LIORESAL) 10 mg tablet Take 10 mg by mouth 3 times daily. Active busPIRone (BUSPAR) 5 mg tablet 2 Active butalbital-acet aminophen-caffe ine (FIORICET, ESGIC) 50-325-40 mg per tablet PLEASE SEE ATTACHED FOR DETAILED DIRECTIONS 2 Active calcium carbonate (TUMS) 500 mg (200 mg elemental calcium) chewable tablet PLEASE SEE ATTACHED FOR DETAILED DIRECTIONS 4 Active cholecalciferol (Dialyvite Vitamin D3 Max) 1,250 mcg (50,000 unit) tablet Take 1 Tab by mouth once a week. Active clonazePAM (KlonoPIN) 1 mg tablet Take 1 mg by mouth 2 times daily as needed. Active cranberry extract 425 mg capsule TAKE 1 CAPSULE BY MOUTH TWICE DAILY WITH MEALS 4 Active cholecalciferol (VITAMIN D-3) 1,250 mcg (50,000 unit) capsule Take 1 Cap by mouth once a week. 8 Active diclofenac (Voltaren Arthritis Pain) 1 % topical gel Place onto the skin as needed. Active docusate sodium (COLACE) 100 mg capsule TAKE 1 CAPSULE BY MOUTH TWICE DAILY NEEDED 4 Active escitalopram (LEXAPRO) 20 mg tablet Take 20 mg by mouth daily. Active fluticasone propionate (Flovent Diskus) 50 mcg/actuation diskus inhaler Inhale 1 Puff into the lungs 2 times daily. Active fluticasone HFA (FLOVENT HFA) 220 mcg/actuation inhaler Inhale 2 Puffs into the lungs 2 times daily. Active gabapentin (NEURONTIN) 600 mg tablet TAKE 1 TABLET BY MOUTH 3 TIMES DAILY. 4 Active ketotifen fumarate (ZADITOR) 0.035 % ophthalmic solution PLEASE SEE ATTACHED FOR DETAILED DIRECTIONS 4 Active lansoprazole (PREVACID) [address] capsule TAKE 1 CAPSULE BY MOUTH TWICE DAILY 4 Active loratadine (CLARITIN) 10 mg tablet Take 1 Tablet by mouth daily. 4 Active METHYL SALICYLATE-MENT HOL TOP Menthol-Methyl Salicylate (SALONPAS PAIN RELIEF PATCH EX) Sig - Route: Apply ??topically. Active montelukast (SINGULAIR) 10 mg tablet Take 10 mg by mouth at bedtime. Active nitrofurantoin (MACRODANTIN) 50 mg capsule TAKE 1 CAPSULE BY MOUTH AFTER SEXUAL ACTIVITY. *TAKE WITH A MEAL/FOOD 4 Active omeprazole (PriLOSEC) [address] capsule [...] FOR SEVERE PAIN (7-10 ON PAIN SCALE). 2 Active zolpidem (AMBIEN) 10 mg tablet Take by mouth at bedtime as needed. Active estradioL (Yuvafem) 10 mcg tablet vaginal tablet INSERT 1 TABLET VAGINALLY 2 TIMES PER WEEK AT BEDTIME (THURSDAY AND THURSDAY) 4 Active atorvastatin (LIPITOR) 40 mg tablet Take 1 tablet (40 mg total) by mouth 1 (one) time each day. 4 Active amitriptyline (ELAVIL) 10 mg tablet Take 1 tablet (10 mg total) by mouth at bedtime. 4 Active oxyCODONE-aceta minophen (PERCOCET) 5-325 mg per tablet Take 1 tablet by mouth every 6 (six) hours if needed for severe pain. 4 Active sodium,potassiu m,mag sulfates (SUPREP) 17.5-3.13-1.6 gram recon soln bowel prep kit oral solution DILUTE DRINK 1/2 AT 6-8 PM AND HALF AT 11 PM- 1AM 4 Active hydroquinone (ASHWIN) 4 % cream APPLY TO THE AFFECTED AREA(S) TWICE DAILY IN THE MORNING AND AT BEDTIME 4 Active tiZANidine (ZANAFLEX) 2 mg tablet TAKE ONE (1) TABLET BY MOUTH TWICE DAILY NEEDED 4 Active albuterol HFA (PROAIR HFA ; PROVENTIL HFA ; VENTOLIN HFA) 90 mcg/actuation inhaler TAKE 2 PUFFS BY MOUTH EVERY 4 TO 6 HOURS NEEDED 2 Active albuterol sulfate 90 mcg/actuation aerosol powdr breath activated Inhale by mouth. 6 Active dicyclomine (BENTYL) 10 mg capsule Take 1 capsule (10 mg total) by mouth 3 times daily as needed. 4 01/26/20 25 Active famotidine (PEPCID) 40 mg tablet Take 1 tablet (40 mg total) by mouth. 3 Active senna 8.6 mg tablet Take 1 tablet (8.6 mg total) by mouth. 3 Active sodium chloride (AYR) 0.65 % nasal drops USE 1-2 SPRAYS ON EACH NOSTRIL EVERY 2-3 HOURS NEEDED FOR NASAL CONGESTION 3 Active Active Problems Problem Noted Date Diagnosed [...] study, she states it was done at [facility] neurology, we called to have it faxed over, it is dated 09/09/2023 and showed normal motor and sensory nerve conduction study. Normal EMG except may suggest mild chronic L5 radiculopathy. She also had lumbar spine MRI 07/02/2024 at [facility], there is [...] opioids 07/07/2024 Overview (08/04/2024): Dx: Rx: Last DENTAL PATIENT COORDINATOR agreement: Tier II (visit every 3 months) [...] Review of the cervical spine MRI at [place] dated 02/26/2024 shows a solid arthrodesis at [...] images of her prior C-spine MRI from [facility] 02/26/2024 that [...] Encounters Date Type Department Care Team Description 10/20/2024 8:00 AM EST Evaluation [facility] [address] [address] Darby Chirinos PT Cervical spondylosis with radiculopathy (Primary Dx) 09/27/2024 Telephone Neurosurgery [address] [place] [address] Mimi Newsome PA 08/04/2024 10:30 AM EST Office Visit [facility] [address] [place] [address] Mimi Newsome PA Cervical spondylosis with radiculopathy (Primary Dx); Low back pain radiating to left leg from Last 3 Months Immunizations Name Administration Dates Next Due Tdap Tetanus diptheria acell ular pertussis (Boostrix; Adacel) 7yo and older 12/13/2022,06/10/2022 Surgical History Surgery Date Site/Laterality Comments HYSTERECTOMY PROCEDURE: HISTORICAL HYSTERECTOMY TUBAL LIGATION PROCEDURE: HISTORICAL TUBAL LIGATION CHOLECYSTECTOMY PROCEDURE: [place] LAPAROSCOPY SURG CHOLECYSTECTOMY EYE SURGERY PROCEDURE: HISTORICAL [...] Tobacco: Never Tobacco Cessation:Counseling Given: Not Answered Comments Unknown Sex and Gender Information Value Date Recorded Sex Assigned at Not on file Legal Sex Female 4:29 PM EST Gender Identity Not on file Sexual Orientation Not on file Obstetrics History Last Filed [...] Last Done Comments Breast Cancer Screening 1966 Hepatitis B Vaccines (1 of 3 - 19+ 3-dose series) 1985 Pneumococcal Vaccine: 50+ Years (1 of 2 - PCV) 1985 Pneumococcal Vaccine: Pediatrics (0 to 5 Years) and At-Risk Patients (6 to 64 Years) (1 of 2 - PCV) 1985 Cervical Cancer Screening: P ap Smear [...] patient's age to complete this topic Meningococcal B Vacine Aged Out No lo nger eligible based on patient's age to complete this topic RSV Immunization Patients Under 20 months Aged Out No longer eligible b ased on patient's age to complete this topic Varicella Vaccines Aged Out No longer eligible based on patient's age to complete this topic Insurance [facility] MEDICARE Member Subscriber Plan / Payer (Ef fective 2016-Present) Name:Miryam Fan Relation to Subscriber:Self Name:Miryam Fan Payer ID:[id number] Group ID:[id number] Type:Not on file Address: [address] [facility] [place] [id number] Care Teams Director Of Regional Sales Relationship Specialty Start Date End Date Sarah Verduzco DO [address] [place] [address] PCP - General Internal Medicine 02/09/18
--- OUTSIDE RECORDS SUMMARY | 2024-10-27 09:26 | XMS_ITS | Encounter Summary ---
Author Organization [employer] Address [address] [facility] [address] [place] [address] Care Team Providers Care Drums Teacher Name Role Phone DellaSarah mills Primary Care Provider + [phone] Reason for Visit * Reason Onset Date Comments Recall Appt. 09/30/2024 Encounter Details Date Type Department Care Team ([facility] st Contact Info) Description 09/30/2024 Telephone [facility] [address] [place], [place] [phone] Lennie Cuenca MA Recall Appt. Social History [...] 11/07/2024 1:30 PM EST Clinical Support [facility] [address] [place] [phone] Lauryn Cunningham RN 11/14/2024 11:15 AM EST Office Visit [facility] [address] [place] [phone] Sarah Verduzco DO [address] [place] [address] 01/25/2025 10:30 AM EDT Office Visit [facility] OPT[facility] [address] [place] [address] Cindy Meek, OD [address] [place] [address] documented as of this encounter Visit Diagnoses Not on filedocumented in this encounter Additional Health Concerns Assessment Noted Time PHQ-9 Depression Total Score: 11 024 10:42 AM EDT documented as of this encounter Care Teams Drums Teacher Relationship Specialty Start Date End Date Sarah Verduzco DO [address] [place] [address] PCP - General Family Medicine 11/21/15 documented as of this encounter
--- OUTSIDE RECORDS SUMMARY | 2024-10-27 09:26 | XMS_ITS | Encounter Summary ---
Author Organization [employer] Address [address] [facility] 7t [place] [address] Care Team Providers Care Road Roller Operator Hot Mix Name Role Phone Sarah Verduzco DO Primary Care Provider + [phone] Reason for Visit * Reason Comments Med Refill Encounter Details Date Type Department Care Team ([facility] Contact Info) Description 04/06/2024 Refill [facility] [address] [place], [place] [phone] Sarah Verduzco DO [address] [place], [place] [phone] Social History Tobacco Use Types Packs/Day Years [...] 11/07/2024 1:30 PM EST Clinical Support [facility] [address] [place] [phone] Lauryn Cunningham, LUISITO 11/14/2024 11:15 AM EST Office Visit [facility] [address] [place] [phone] Sarah Verduzco DO [address] [place] [address] 01/25/2025 10:30 AM EDT Office Visit [facility] OPTOMETRY [address] [place] [address] Fantasma, Cindy, OD [address] [place] [address] documented as of this encounter Visit Diagnoses Not on filedocumented in this encounter Additional Health Concerns Assessment Noted Time PHQ-9 Depression Total Score: 24 023 8:54 AM EDT documented as of this encounter Care Teams Road Roller Operator Hot Mix Relationship Specialty Start Date End Date Sarah Verduzco DO [address] [place] [address] PCP - General Family Medicine 11/21/15 documented as of this encounter
--- OUTSIDE RECORDS SUMMARY | 2024-10-27 09:26 | XMS_ITS | Encounter Summary ---
Author Organization [employer] Address [address] [facility] 7t [place] [address] Care Team Providers Care Anode Builder Name Role Phone Sarah Verduzco DO Primary Care Provider + [phone] Reason for Visit * Reason Onset Date Comments Med Refill 10/24/2024 Encounter Details Date Type Department Care Team (Late st Contact Info) Description 10/24/2024 Refill [facility] [address] [place], [place] [phone] Sarah Verduzco DO [address] [place], [place] [phone] Chronic bilateral low back pain with left-sided sciatica Social History Tobacco Use Types Packs/Day [...] the past 12 months, has t he [employer], gas, oil or water [employer] threatened to shut off services in your [...] encounter Miscellaneous Notes * Telephone Encounter - Frank Castro - 10/24/2024 8:50 AM EST TC from pt requesting medication refill. Medications needing refill : oxyCODONE-acetaminophen (Percocet) 5-325 MG tablet [facility] be [facility] to: [id number] [address] [facility] documented in this encounter Plan of Treatment Upcoming Encounters Date Type Department Care Team (Late st Contact Info) Description 11/07/2024 1:30 PM EST Clinical Support [facility] [address] [place] [phone] Lauryn Cunningham RN 11/14/2024 11:15 AM EST Office Visit [facility] [address] [place] [address] Sarah Verduzco DO [address] [place] [phone] 01/25/2025 10:30 AM EDT Office Visit [facility] [address] [place], [place] [phone] Cindy Meek, OD [address] [place] [address] documented as of this encounter Visit Diagnoses Diagnosis Chronic bilateral low back pain with left-sided sciatica documented in this encounter Additional Health Concerns Assessment Noted Time PHQ-9 Depression Total Score: 11 024 10:42 AM EDT documented as of this encounter Care Teams Anode Builder Relationship Specialty Start Date End Date Sarah Verduzco DO [address] [place] [address] PCP - General Family Medicine 11/21/15 documented as of this encounter
== END 2024-10-27 08:59 | disposition home or self-care (01) ==
LOC: HO.US 08:58
PROVIDERS: PCP Family Medicine; Visit Provider Nurse Practitioner Primary Care
DX: R10.31 Right lower quadrant pain (principal)
CPT/HCPCS: 76857

== ENCOUNTER → 2024-10-27 09:00 | Outpatient (BNV) | payer OTHER, SELFPAY | PROVIDERS: PCP Family Medicine; Visit Provider Radiology Diagnostic Radiology | DX: K42.9 Umbilical hernia without obstruction or gangrene (principal) | CPT/HCPCS: 76857 ==

== ENCOUNTER 2024-11-10 13:39 | Outpatient (AMB) | payer OTHER, SELFPAY ==
--- NOTE | 2024-11-10 13:47 | MHC.OFFVIS ---
Vital Signs 11/10/24 13:56 Height 4 ft 11 in Weight 128 lb 2 oz BMI 25.9 BP 138/80 Blood Pressure Location Lt brachial Position Sitting Pulse 74 Intake Visit Reasons: umbilical hernia Intake Note: Patient is seen in office for evaluation and treatment of an umbilical hernia. Pt c/o: feels a lump in the abdomen, unsure for how long, discomfort, has to hold it down at times, constipation, does heavy lifting at home Requirements Manager Required: No Accompanied by: Self / Same As Patient Allergies Iodinated Contrast Media [CONTRAST, IV] Allergy (Intermediate, Verified 11/10/24 13:55) HIVES iopromide [From ULTRAVIST] Allergy (Intermediate, Verified 11/10/24 13:55) HIVES ibuprofen [From MOTRIN] Adverse Reaction (Intermediate, Verified 11/10/24 13:55) NAUSEA & VOMITING Medication List - Last Reconciled 11/10/24 by Hardik Jiang MD acetaminophen ER 650 mg PO Q6H PRN albuterol sulfate 90 mcg/actuation 2 puffs PO Q4-6H PRN atorvastatin 40 mg PO DAILY baclofen 10 mg PO TID buspirone 5 mg PO TID oxzwkwsfqz-akzypjvthkdwx-rmrr 50-325-40 mg tabs PO cholecalciferol (vitamin D3) 50 mcg PO DAILY clonazepam 1 tab PO DAILY PRN cranberry extract 425 mg PO BID diclofenac sodium 1% 1 ea topical BID docusate sodium 100 mg PO BID PRN escitalopram oxalate 10 mg PO DAILY estradiol (Vagifem) 10 mcg vaginal 2XW fluticasone furoate 100 mcg/actuation (Arnuity Ellipta) 1 inh inhalation DAILY fluticasone propionate 110 mcg/actuation (Flovent HFA) 1 puff inhalation BID fluticasone propionate 50 mcg/actuation 1 spray intranasal DAILY lansoprazole 30 mg PO BID loratadine 10 mg PO DAILY nitrofurantoin macrocrystal 50 mg orally use after sexual activity; must administer with a meal/food oxycodone-acetaminophen 2.5-325 mg (Percocet) 1 tab PO Q8H PRN tizanidine 2 mg PO BID PRN zolpidem 1 tab PO BEDTIME PRN HPI Comments Details: 58-year-old female patient presenting with complaints of abdominal pain in the right lower quadrant. She reports the pain developing starting several months ago but denies any recent injury or surgery in this location. She does report a previous hysterectomy through a Pfannenstiel incision. She reports when the pain is severe she needs to massage the right lower quadrant to relieve the pain. She has not felt a lump in this location. Workup with an ultrasound of the abdomen did show evidence of a fascial defect with fatty tissue prolapsing through. Findings were suggestive of a hernia. She is not exactly sure where this is located. 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 Mother History of heart attack Social History Household Members: None Housing: Apartment Alcohol intake: never Patient Tobacco Use Status: Never used Tobacco Review of Systems Const All systems reviewed & are unremarkable except as noted in HPI and below Physical Exam Vital Signs: Last Vital Signs Pulse 74 11/10/24 13:56 BP 138/80 11/10/24 13:56 BMI result Body Mass Index 25.9 Const General: cooperative and no acute distress Nutritional Appearance: well nourished Orientation/consciousness: patient oriented x3 Limitations: no limitations HEENT Head: Yes normocephalic and Yes atraumatic Ears: hearing grossly normal bilaterally Resp Effort & Inspection: normal respiratory effort, no audible wheezes, no cough and no respiratory distress Cardio Jugular venous distension: no JVD GI Other: Soft and nondistended, well-healed Pfannenstiel incision. Area of tenderness is located in the right lower quadrant approximately 2-3 cm above the Pfannenstiel incision. The patient was examined in the standing position with Valsalva maneuvers and no palpable hernias appreciated. Inspection: Yes normal to inspection Abdomen image: 1. Point area of tenderness 2. Pfannenstiel incision Skin Other: Warm, dry, no rash Neuro General: patient oriented x3 Extrem General: Yes no clubbing, cyanosis or edema Assessment & Plan Assessment & Plan (1) Incisional hernia: Code(s): K43.2 - Incisional hernia without obstruction or gangrene Category: Medical Qualifiers: Obstruction and gangrene presence: without obstruction or gangrene Qualified Code(s): K43.2 - Incisional hernia without obstruction or gangrene Plan 58-year-old female patient presenting with an area of pain in the right lower quadranton ultrasound to have evidence of an incisional hernia. On examination I am unable to confirm a hernia but do elicit tenderness in the right lower quadrant. I recommended further evaluation with CT of the pelvis to better localize this area of weakness noted on ultrasound. I suggested she return following the CT to review the results and discuss treatment options. She expressed understanding and agrees with the plan. Orders: Orders CT pelvis wo IV con Today K43.2 - Incisional hernia without obstruction or gangrene Coding Level of Care Code New Pt Level 4 (97940) Diagnoses Incisional hernia, without obstruction or gangrene K43.2 Obstruction and gangrene presence: without obstruction or gangrene
[2024-11-10 13:56] VITALS: BP 138/80; PULSE 74; BMI 25.9
--- OUTSIDE RECORDS SUMMARY | 2024-11-10 16:23 | XMS_ITS | Encounter Summary ---
Author Organization [employer] Address 75 [facility] 7t [place] [address] Care Team Providers Care Eap Specialist Name Role Phone Sarah Verduzco DO Primary Care Provider + [phone] Encounter Details Date Type Department Care Team (Late st Contact Info) Description 12/24/2022 Orders Only [facility] [address] [place] [phone] Sarah Verduzco DO [address] [place] [address] Social History Tobacco Use Types Packs/Day Years [...] Care Team (Late st Contact Info) Description 11/14/2024 11:15 AM EST Office Visit [facility] [address] [place] [phone] Sarah Verduzco DO [address] [place] [address] 01/25/2025 10:30 AM EDT Office Visit [facility] OPTOMETRY [address] [place] [address] Cindy Meek, OD [address] [place] [address] 02/08/2025 10:00 AM EDT Clinical Support [facility] [address] [place], [place] [phone] Lauryn Cunningham, LUISITO documented as of this encounter Visit Diagnoses Not on filedocumented in this encounter Care Teams Eap Specialist Relationship Specialty Start Date End Date Sarah Verduzco DO [address] [place] [address] PCP - General Family Medicine 11/21/15 documented as of this encounter
--- OUTSIDE RECORDS SUMMARY | 2024-11-10 16:23 | XMS_ITS | Encounter Summary ---
Author Organization [employer] Address [address] [facility] 7t [place] [address] Care Team Providers Care Contract Implementation Analyst Name Role Phone Sarah Verduzco DO Primary Care Provider + [phone] Reason for Visit * Reason Comments Med Refill Encounter Details Date Type Department Care Team ([facility] Contact Info) Description 09/08/2023 Refill [facility] [address] [place], [place] [phone] Sarah Verduzco DO [address] [place] [address] Social History Tobacco Use Types Packs/Day Years [...] Description 11/14/2024 11:15 AM EST Office Visit [facility] [address] [place] [address] Sarah Verduzco DO [address] [place] [address] 01/25/2025 10:30 AM EDT Office Visit [facility] OPTOMETRY [address] [place] [address] Fantasma, Cindy, OD [address] [place] [address] 02/08/2025 10:00 AM EDT Clinical Support [facility] [address] [place] [address] Lauryn Cunningham, RN documented as of this encounter Visit Diagnoses Not on filedocumented in this encounter Additional Health Concerns Assessment Noted Time PHQ-9 Depression Total Score: 24 023 8:54 AM EDT documented as of this encounter Care Teams Contract Implementation Analyst Relationship Specialty Start Date End Date Sarah Verduzco DO [address] [place] [address] PCP - General Family Medicine 11/21/15 documented as of this encounter
--- OUTSIDE RECORDS SUMMARY | 2024-11-10 16:23 | XMS_ITS | Encounter Summary ---
Author Organization [employer] Address [address] [facility] 7t [place] [address] Care Team Providers Care Director Of Retail Analytics Name Role Phone Sarah Verduzco DO Primary Care Provider + [phone] Reason for Visit * Reason Comments Med Refill Encounter Details Date Type Department Care Team (Late Contact Info) Description 10/21/2022 Telephone [facility] [address] [place], [place] [phone] Sarah Verduzco DO [address] [place], [place] [phone] Med Refill Social History Tobacco Use Types [...] Department Care Team (Late Contact Info) Description 11/14/2024 11:15 AM EST Office Visit [facility] [address] [place] [address] Sarah Verduzco DO [address] [place] [address] 01/25/2025 10:30 AM EDT Office Visit [facility] OPTOMETRY [address] [place], [place] [phone] Cindy Meek, OD [address] [place] [address] 02/08/2025 10:00 AM EDT Clinical Support [facility] MED[facility] [address] [place], [place] [phone] Lauryn Cunningham, LUISITO documented as of this encounter Visit Diagnoses Not on filedocumented in this encounter Care Teams Director Of Retail Analytics Relationship Specialty Start Date End Date Sarah Verduzco DO [address] [place] [address] PCP - General Family Medicine 11/21/15 documented as of this encounter
--- OUTSIDE RECORDS SUMMARY | 2024-11-10 16:23 | XMS_ITS | Encounter Summary ---
Author Organization [employer] [facility] Address [address] [facility] 7t [place] [address] Care Team Providers Care Geophysical Party Chief Name Role Phone Sarah Verduzco DO Primary Care Provider + [phone] Reason for Visit * Reason Comments Med Refill Encounter Details Date Type Department Care Team (Late st Contact Info) Description 12/19/2022 Refill [facility] MEDICINE [address] [place] [address] Sarah Verduzco DO [address] [place] [address] Social History Tobacco Use Types Packs/Day Years [...] Description 11/14/2024 11:15 AM EST Office Visit [facility] MEDICINE [address] [place] [address] Sarah Verduzco DO [address] [place] [address] 01/25/2025 10:30 AM EDT Office Visit [facility] OPTOMETRY [address] [place] [address] FantasmaCindy sanchez, OD 230 [place] [address] 02/08/2025 10:00 AM EDT Clinical Support [facility] MEDICINE [address] [place], [place] [phone] Lauryn Cunningham, LUISITO documented as of this encounter Visit Diagnoses Not on filedocumented in this encounter Care Teams Geophysical Party Chief Relationship Specialty Start Date End Date Sarah Verduzco DO [address] [place] [address] PCP - General Family Medicine 11/21/15 documented as of this encounter
--- OUTSIDE RECORDS SUMMARY | 2024-11-10 16:23 | XMS_ITS | Encounter Summary ---
Author Organization [employer] Address [address] [facility] 7t [place] [address] Care Team Providers Care Operations Support Manager Name Role Phone Sarah Verduzco DO Primary Care Provider + [phone] Reason for Visit * Reason Comments Med Refill Encounter Details Date Type Department Care Team ([facility] Contact Info) Description 08/20/2023 Refill [facility] MEDICINE [address] [place], [place] [phone] Sarah Verduzco DO [address] [place] [address] Chronic neck pain Social History Tobacco Use [...] 08/31/2023 11:48 AM EST Referral faxed for ADMISSIONS RN services to , per provider request. documented in this encounter Plan of Treatment Upcoming Encounters Date Type Department Care Team (Late st Contact Info) Description 11/14/2024 11:15 AM EST Office Visit [facility] MEDICINE [address] [place] [address] Sarah Verduzco DO [address] [place] [address] 01/25/2025 10:30 AM EDT Office Visit [facility] OPTOMETRY [address] [place] [address] Fantasma, Cindy, OD 230 [place] [address] 02/08/2025 10:00 AM EDT Clinical Support [facility] MEDICINE [address] [place] [address] Lauryn Cunningham, LUISITO documented as of this encounter Visit Diagnoses Diagnosis Chronic neck pain Cervicalgia documented in this encounter Additional Health Concerns Assessment Noted Time PHQ-9 Depression Total Score: 24 023 8:54 AM EDT documented as of this encounter Care Teams Operations Support Manager Relationship Specialty Start Date End Date Sarah Verduzco DO [address] [place] [address] PCP - General Family Medicine 11/21/15 documented as of this encounter
--- OUTSIDE RECORDS SUMMARY | 2024-11-10 16:23 | XMS_ITS | Encounter Summary ---
Author Organization [facility] Address [address] [place] [address] Care Team Providers Care Utility Service Worker Name Role Phone Sarah Verduzco DO Primary Care Provider [phone] Reason for Visit * Therapy (Routine) - Authorized Specialty Diagnoses / Procedures Referred By Contac t Referred To Contact Physical Therapy Diagnoses Cervical spondylosis with radiculopathy Mimi Newsome PA [address] [facility], [address] [place] [address] Phone: tel: fax: [address] [address] Phone: tel: fax: Referral ID Status Reason Start Date Expiration Date Visits Requested Visits Authorized [id number] Authorized Consult and Treat 08/04/2024 08/04/2025 20 20 Encounter Details Date Type Department Care Team (Latest Contact Info) Description 10/20/2024 8:00 AM EST Evaluation [address] [address] Darby Chirinos PT Cervical spondylosis [...] of eval pt notes being seen at [facility]. Pt educated on [...] myelopathy documented in this encounter Care Teams Utility Service Worker Relationship Specialty Start Date End Date Sarah Verduzco DO [address] [place] [address] PCP - General Internal Medicine 02/09/18 documented as of this encounter
--- OUTSIDE RECORDS SUMMARY | 2024-11-10 16:23 | XMS_ITS | Encounter Summary ---
Author Organization [employer] Address [address] [facility] 7t [place] [address] Care Team Providers Care Title Search Manager Name Role Phone Sarah Verduzco DO Primary Care Provider + [phone] Reason for Visit * Reason Onset Date Comments Med Refill 10/20/2022 Encounter Details Date Type Department Care Team ([facility] st Contact Info) Description 10/20/2022 Telephone [facility] MEDICINE [address] [place], [place] [phone] Sarah Verduzco DO [address] [place], [place] [phone] Med Refill Social History Tobacco Use Types [...] Description 11/14/2024 11:15 AM EST Office Visit [facility] MEDICINE [address] [place] [address] Sarah Verduzco DO [address] [place] [address] 01/25/2025 10:30 AM EDT Office Visit [facility] OPTOMETRY [address] [place], [place] [phone] Cindy Meek, OD 230 [place] [address] 02/08/2025 10:00 AM EDT Clinical Support [facility] MEDICINE [address] [place] [address] Lauryn Cunningham, LUISITO documented as of this encounter Visit Diagnoses Not on filedocumented in this encounter Care Teams Title Search Manager Relationship Specialty Start Date End Date Sarah Verduzco DO [address] [place] [phone] PCP - General Family Medicine 11/21/15 documented as of this encounter
--- OUTSIDE RECORDS SUMMARY | 2024-11-10 16:23 | XMS_ITS | Encounter Summary ---
Author Organization [employer] Address [address] [facility] 7t [place] [address] Care Team Providers Care Cloud Engagement Partner Name Role Phone Sarah Verduzco DO Primary Care Provider + [phone] Reason for Visit * Reason Comments Med Refill Encounter Details Date Type Department Care Team ([facility] st Contact Info) Description 10/31/2024 Refill [facility] MEDICINE [address] [place], [place] [phone] Sarah Verduzco DO 230 [place] [address] Chronic nonintractable headache, unspecified headache type Social History Tobacco Use Types Packs/Day Years [...] Description 11/14/2024 11:15 AM EST Office Visit [facility] MEDICINE [address] [place] [address] Sarah Verduzco DO 230 [place] [address] 01/25/2025 10:30 AM EDT Office Visit [facility] OPTOMETRY [address] [place] [address] Cindy Meek, OD 230 [place] [address] 02/08/2025 10:00 AM EDT Clinical Support [facility] MEDICINE [address] [place] [address] Lauryn Cunningham RN documented as of this encounter Visit Diagnoses Diagnosis Chronic nonintractable headache, unspecified headache type documented in this encounter Additional Health Concerns Assessment Noted Time PHQ-9 Depression Total Score: 11 024 10:42 AM EDT documented as of this encounter Care Teams Cloud Engagement Partner Relationship Specialty Start Date End Date Sarah Verduzco DO [address] [place] [address] PCP - General Family Medicine 11/21/15 documented as of this encounter
--- OUTSIDE RECORDS SUMMARY | 2024-11-10 16:23 | XMS_ITS | Encounter Summary ---
Author Organization [employer] Address [address] [facility] 7t [place] [address] Care Team Providers Care Film Replacement Orderer Name Role Phone Sarah Verduzco DO Primary Care Provider + [phone] Reason for Visit * Reason Comments Med Refill Encounter Details Date Type Department Care Team (Late Contact Info) Description 02/06/2023 Refill [facility] MEDICINE 230 [place], [place] [phone] Sarah Verduzco DO [address] [place] [address] Chronic GERD Social History Tobacco Use Types [...] Upcoming Encounters Date Type Department Care Team ([facility] Contact Info) Description 11/14/2024 11:15 AM EST Office Visit [facility] MEDICINE 230 [place] [address] Sarah Verduzco DO 230 [place] [address] 01/25/2025 10:30 AM EDT Office Visit [facility] OPTOMETRY [address] [place], [place] [phone] Cindy Meek, OD 230 [place] [address] 02/08/2025 10:00 AM EDT Clinical Support [facility] MEDICINE [address] [place] [address] Lauryn Cunningham RN documented as of this encounter Visit Diagnoses Diagnosis Chronic GERD documented in this encounter Additional Health Concerns Assessment Noted Time PHQ-9 Depression Total Score: 16 01/27/ 023 10:36 AM EDT documented as of this encounter Care Teams Film Replacement Orderer Relationship Specialty Start Date End Date Sarah Verduzco DO [address] [place] [address] PCP - General Family Medicine 11/21/15 documented as of this encounter
--- OUTSIDE RECORDS SUMMARY | 2024-11-10 16:23 | XMS_ITS | Encounter Summary ---
Author Organization [employer] Address [address] [facility] 7t [place] [address] Care Team Providers Care Escapement Maker Name Role Phone Sarah Verduzco DO Primary Care Provider [phone] Reason for Referral * Consultation (Routine) - Authorized Specialty Diagnoses / Procedures Referred By Contmarvin t Referred To Contact General Surgery Diagnoses Fascial defect Layen Guzman ANP [address] [place] [address] Phone: tel: fax: Hardik Jiang MD [address] [place] [address] 3rd [place] [address] Phone: tel: fax: Referral ID Status Reason Start Date Expiration Date Visits Requested Visits Authorized [id number] Authorized Specialty Services Required 10/27/2024 10/27/2025 1 1 Encounter Details Date Type Department Care Team (Late st Contact Info) Description 10/27/2024 Orders Only [facility] MEDICINE [address] [place] [address] Layne Guzman ANP [address] [place], [place] [phone] Fascial defect (Primary Dx) Social History Tobacco Use Types [...] Visit [facility] MEDICINE [address] [place] [address] Sarah Verduzco DO [address] [place] [address] 01/25/2025 10:30 AM EDT Office Visit [facility] OPTOMETRY [address] [place] [address] Cindy Meek, OD 230 [place] [address] 02/08/2025 10:00 AM EDT Clinical Support [facility] MEDICINE 230 [place] [address] Lauryn Cunningham RN Scheduled Referrals Name Type Priority Associated Diagnoses Orde r Schedule Referral to General Surgery Outpatient Referral Routine Fascial defect Expected: 10/27/2024 (Approximate), Expires: 10/27/2025 documented as of this encounter Visit Diagnoses Diagnosis Fascial defect- Primary documented in this encounter Additional Health Concerns Assessment Noted Time PHQ-9 Depression Total Score: 11 05/04/ 024 10:42 AM EDT documented as of this encounter Care Teams Escapement Maker Relationship Specialty Start Date End Date Sarah Verduzco DO [address] [place] [address] PCP - General Family Medicine 11/21/15 documented as of this encounter
--- OUTSIDE RECORDS SUMMARY | 2024-11-10 16:23 | XMS_ITS | Encounter Summary ---
Author Organization [employer] [place] [facility] Address [address] [facility] 7t [place] [address] Care Team Providers Care Menu Planner Name Role Phone Sarah Verduzco DO Primary Care Provider + [phone] Reason for Visit * Reason Comments Med Refill Encounter Details Date Type Department Care Team (Late Contact Info) Description 10/21/2022 Refill [facility] MEDICINE [address] [place] [phone] Елена Olson MD 230 [place] [address] Sinusitis, unspecified chronicity, unspecified location Social History [...] Description 11/14/2024 11:15 AM EST Office Visit [facility] MEDICINE [address] [place] [address] Sarah Verduzco DO 230 [place] [address] 01/25/2025 10:30 AM EDT Office Visit [facility] OPTOMETRY [address], [place] [phone] Cindy Meek, OD 230 [place] [address] 02/08/2025 10:00 AM EDT Clinical Support [facility] MEDICINE 230 [place] [address] Lauryn Cunningham, LUISITO documented as of this encounter Visit Diagnoses Diagnosis Sinusitis, unspecified chronicity, unspecified location documented in this encounter Care Teams Menu Planner Relationship Specialty Start Date End Date Sarah Verduzco DO [address] [place] [address] PCP - General Family Medicine 11/21/15 documented as of this encounter
--- OUTSIDE RECORDS SUMMARY | 2024-11-10 16:23 | XMS_ITS | Encounter Summary ---
Author Organization [employer] Address [address] [facility] [address] 7t [place] [address] Care Team Providers Care Vascular Physician Name Role Phone Sarah Verduzco DO Primary Care Provider + [phone] Encounter Details Date Type Department Care Team ([facility] st Contact Info) Description 07/27/2023 Telephone [facility] MEDICINE [address] [place], [place] [phone] Sarah Verduzco DO 230 [place], [place] [phone] Social History Tobacco Use Types Packs/Day Years [...] Description 11/14/2024 11:15 AM EST Office Visit [facility] MEDICINE 230 [place] [address] Sarah Verduzco DO 230 [place] [address] 01/25/2025 10:30 AM EDT Office Visit [facility] OPTOMETRY [address] [place] [address] Fantasma, Cindy, OD 230 [place] [address] 02/08/2025 10:00 AM EDT Clinical Support [facility] MEDICINE 230 [place] [address] Lauryn Cunningham, RN documented as of this encounter Visit Diagnoses Not on filedocumented in this encounter Additional Health Concerns Assessment Noted Time PHQ-9 Depression Total Score: 24 023 8:54 AM EDT documented as of this encounter Care Teams Vascular Physician Relationship Specialty Start Date End Date Sarah Verduzco DO 230 [place], [place] [phone] PCP - General Family Medicine 11/21/15 documented as of this encounter
--- OUTSIDE RECORDS SUMMARY | 2024-11-10 16:23 | XMS_ITS | Encounter Summary ---
Author Organization [employer] Address [address] [facility] 7t [place] [address] Care Team Providers Care Order Analyst Name Role Phone Sarah Verduzco DO Primary Care Provider + [phone] Reason for Visit * Reason Onset Date Comments Nurse Triage 07/20/2023 Encounter Details Date Type Department Care Team ([facility] st Contact Info) Description 07/20/2023 Telephone [facility] MEDICINE 230 [place], [place] [phone] Sarah Verduzco DO 230 [place], [place] [phone] Nurse Triage Social History Tobacco Use Types [...] juice Pt agrees. Advised to come to [facility] today to be seen by provider [...] accepted this outcome Please contact pt at [phone] documented in this encounter Plan of Treatment Upcoming Encounters Date Type Department Care Team (Late st Contact Info) Description 11/14/2024 11:15 AM EST Office Visit [facility] MEDICINE 230 [place] [address] Sarah Verduzco DO 230 [place], [place] [phone] 01/25/2025 10:30 AM EDT Office Visit [facility] OPTOMETRY [address] [place], [place] [phone] Cindy Meek, OD 230 [place], [place] [phone] 02/08/2025 10:00 AM EDT Clinical Support [facility] 230 [place] [address] Lauryn Cunningham RN documented as of this encounter Visit Diagnoses Not on filedocumented in this encounter Additional Health Concerns Assessment Noted Time PHQ-9 Depression Total Score: 24 023 8:54 AM EDT documented as of this encounter Care Teams Order Analyst Relationship Specialty Start Date End Date Sarah Verduzco DO 230 [place], [place] [phone] PCP - General Family Medicine 11/21/15 documented as of this encounter
--- OUTSIDE RECORDS SUMMARY | 2024-11-10 16:23 | XMS_ITS | Clinical Summary ---
Author Organization [facility] Address [address] [facility] [place] [address] Care Team Providers Care Propellant Charge Zone Assembler Name Role Phone Sarah Verduzco DO Primary Care Provider Aura Kramer MD Unavailable [phone] Mimi Newsome PA-C Unavailable [phone] Kaleb Tripathi PA-C Unavailable Allergies Active Allergy Reactions Severity Noted Date Comments Iv Contrast Dye 12/13/2021 Medications Medication Sig Dispensed Refills Start Date End Date Status Zolpidem Tartrate 10 MG Tab Take by mouth at bedtime as needed. 0 Active clonazepam (KLONOPIN) 1 MG tablet Take 1 mg by mouth 2 times daily as needed. 0 Active fluticasone (FLOVENT DISKUS) 50 MCG/BLIST diskus inhaler Inhale 1 Puff into the lungs 2 times daily. 0 Active Diclofenac Sodium 1 % Gel Place onto the skin as needed. 0 Active baclofen (LIORESAL) 10 MG tablet Take 10 mg by mouth 3 times daily. 0 Active escitalopram (LEXAPRO) 20 MG tablet Take 20 mg by mouth daily. 0 Active fluticasone (FLOVENT HFA) 220 MCG/ACT inhaler Inhale 2 Puffs into the lungs 2 times daily. 0 Active montelukast (SINGULAIR) 10 MG tablet Take 10 mg by mouth at bedtime. 0 Active omeprazole (PRILOSEC) 40 MG capsule Take 40 mg by mouth 2 Times Daily. 0 Active Polyethylene Glycol 3350 (PEG 3350) Powder Take by mouth every 4 hours as needed. 0 Active pravastatin (PRAVACHOL) 40 MG tablet Take 40 mg by mouth daily. 0 Active topiramate (TOPAMAX) 25 MG tablet Take 25 mg by mouth daily. 0 Active Cholecalciferol (VITAMIN D3) 45636 UNITS Tab Take 1 Tab by mouth once a week. 0 Active fluticasone-salmete rol (ADVAIR DISKUS) 500-50 MCG/DOSE diskus inhalerIndications: Moderate asthma without complication, unspecified whether persistent Inhale 1 Puff into the lungs every 12 hours for 90 days. This medication has inhaler steroid: Rinse mouth with water and expectorate after each dose to prevent oral/esophageal candidiasis or fungal infection. 1 Inhaler 5 09/09/2017 Active D3-50 59593 UNITS Cap Take 1 Cap by mouth once a week. 8 Cap 0 07/15/2018 Active Arthritis Pain Relief 650 MG CR tablet TAKE 1 TABLET BY MOUTH EVERY 8 HOURS NEEDED FOR PAIN OR FEVER 0 11/16/2021 Active RTRRFCJOIU-GHJS-OWR FEINE 50-325-40 MG OR TABS (FIORICET, ESGIC) per tablet PLEASE SEE ATTACHED FOR DETAILED DIRECTIONS 0 11/18/2021 Active tramadol (ULTRAM) 50 MG tablet TAKE 1 TABLET BY MOUTH EVERY 6 HOURS NEEDED FOR SEVERE PAIN (7-10 ON PAIN SCALE). 0 11/18/2021 Active busPIRone (BUSPAR) 5 MG tablet 0 11/24/2021 Active calcium carbonate (TUMS) 500 MG chewable tablet PLEASE SEE ATTACHED FOR DETAILED DIRECTIONS 0 12/29/2023 Active Cranberry Juice Powder 425 MG Cap TAKE 1 CAPSULE BY MOUTH TWICE DAILY WITH MEALS 0 03/23/2024 Active docusate sodium (COLACE) 100 MG capsule TAKE 1 CAPSULE BY MOUTH TWICE DAILY NEEDED 0 03/08/2024 Active Yuvafem 10 MCG Tab INSERT 1 TABLET VAGINALLY 2 TIMES PER WEEK AT BEDTIME (THURSDAY AND THURSDAY) 0 02/25/2024 Active Arnuity Ellipta 100 MCG/ACT AEROSOL POWDER,BREATH ACTIVATED 0 03/23/2024 Active gabapentin (NEURONTIN) 600 MG tablet TAKE 1 TABLET BY MOUTH 3 TIMES DAILY. 0 12/29/2023 Active Ketotifen Fumarate 0.035 % Solution PLEASE SEE ATTACHED FOR DETAILED DIRECTIONS 0 12/29/2023 Active lansoprazole (PREVACID) 30 MG capsule TAKE 1 CAPSULE BY MOUTH TWICE DAILY 0 03/23/2024 Active loratadine (CLARITIN) 10 MG tablet Take 1 Tablet by mouth daily. 0 03/08/2024 Active nitrofurantoin (MACRODANTIN) 50 MG capsule TAKE 1 CAPSULE BY MOUTH AFTER SEXUAL ACTIVITY. *TAKE WITH A MEAL/FOOD 0 03/23/2024 Active Menthol-Methyl Salicylate (SALONPAS PAIN RELIEF PATCH EX) Apply topically. 0 Ac tive Active Problems Problem Noted Date Neck pain 12/04/2021 Last Assessment & Plan: Ms. Aguiar is [...] for an MRI of the cervical spine. Hyperlipidemia 11/05/2017 Gastric reflux 11/05/2017 Insomnia 11/05/2017 Major depression, recurrent, chronic Paresthesia of arm 08/03/2017 Fibromyalgia 08/03/2017 Headache 08/03/2017 Asthma 08/03/2017 Cervical spondylosis with radiculopathy 08/03/2017 Last Assessment & Plan: Ms. Fan is [...] Review of the cervical spine MRI at [place] dated 02/26/2024 shows a solid arthrodesis at [...] plating. She is agreeable with the plan. Immunizations Name Administration Dates Next Due COVID-19 (Moderna) 02/01/2021,01/04/2021 Family History Medical History Relation Name Comments Cancer of the Breast Aunt Arthritis Father RA, DM CT Mother cause of Diabetes Sister 1 Thyroid Disorder Sister 2 Depression Sister 3 Anemia Sister 4 Renal Failure Sister 5 in HD Relation Name Status Comments Aunt Father Alive Mother Sister 1 Alive Sister 2 Alive Sister 3 Alive Sister 4 Alive Sister 5 Alive Social History Tobacco Use Types Packs/Day Years Used Date Smoking Tobacco: Former Smokeless Tobacco: Never Sex Assigned at Date Recorded Not on file Last Filed Vital Signs Vital Sign Reading Time Taken Comments Blood Pressure 118/68 02/09/2018 9:49 AM EDT Pulse 86 02/09/2018 9:49 AM EDT Temperature - - Respiratory Rate 15 02/09/2018 9:49 AM EDT Oxygen Saturation 100% 02/09/2018 9:49 AM EDT Inhaled Oxygen Concentration - - Weight 56.7 kg (125 lb) 12/13/2021 2:14 PM EDT Height 121.9 cm (4') 12/13/2021 2:14 PM EDT Body Mass Index 38.14 12/13/2021 2:14 PM EDT Plan of Treatment Health Maintenance Due Date Last Done Comments HEPATITIS C SCREENING 1984 DTAP/TDAP/TD (1 - Tdap) 1985 PNEUMOCOCCAL VACCINE FOR HIG H RISK PATIENTS (#1) 1985 CHOLESTEROL SCREENING 1986 CERVICAL CANCER SCREENING 12/27/1987 BASELINE HEALTH EXAM 40-64 2006 MAMMOGRAM 2006 COLON CANCER SCREENING 2016 SHINGLES VACCINE (1 of 2) 2016 Covid-19 Vaccine ( season) 2024, 01/04/2021 INFLUENZA (#1) 2024 BMI CHECK/ADVISE 09/14/2024 Care Teams Propellant Charge Zone Assembler Relationship Specialty Start Date End Date Sarah Verduzco DO PCP - General Internal Medicine 02/09/18 Aura [place] MD [address] [address] Surgeon Neurosurgery 12/09/21 Mimi Newsome PA-C [address] [address] Specialist Neurosurgery 12/09/21 Kaleb Tripathi PA-C [address] [place] [address] [address] [place] [address] Specialist Neurosurgery 12/09/21
--- OUTSIDE RECORDS SUMMARY | 2024-11-10 16:24 | XMS_ITS | Encounter Summary ---
Author Organization [employer] Address [address] [facility] 7t [place] [address] Care Team Providers Care Forging Dies Final Finisher Name Role Phone Sarah Verduzco DO Primary Care Provider + [phone] Reason for Visit * Reason Comments Med Refill Encounter Details Date Type Department Care Team ([facility] Contact Info) Description 06/20/2023 Refill [facility] MEDICINE [address] [place], [place] [phone] Sarah Verduzco DO 230 [place] [address] Chronic neck pain Social History Tobacco Use [...] Description 11/14/2024 11:15 AM EST Office Visit [facility] MEDICINE [address] [place] [address] Sarah Verduzco DO [address] [place] [address] 01/25/2025 10:30 AM EDT Office Visit [facility] OPTOMETRY [address] [place] [address] Fantasma, Cindy, OD 230 [place] [address] 02/08/2025 10:00 AM EDT Clinical Support [facility] MEDICINE [address] [place] [address] Lauryn Cunningham, RN documented as of this encounter Visit Diagnoses Diagnosis Chronic neck pain Cervicalgia documented in this encounter Additional Health Concerns Assessment Noted Time PHQ-9 Depression Total Score: 24 023 8:54 AM EDT documented as of this encounter Care Teams Forging Dies Final Finisher Relationship Specialty Start Date End Date Sarah Verduzco DO [address] [place] [address] PCP - General Family Medicine 11/21/15 documented as of this encounter
--- OUTSIDE RECORDS SUMMARY | 2024-11-10 16:24 | XMS_ITS | Encounter Summary ---
Author Organization [employer] Address [address] [facility] [address] [place] [address] Care Team Providers Care Plastic Die Maker Apprentice Name Role Phone DellaSarah mills Primary Care Provider + [phone] Reason for Visit * Reason Onset Date Comments Recommend OSTEOLOGIST Tier 2 11/07/2024 Encounter Details Date Type Department Care Team ([facility] st Contact Info) Description 11/07/2024 Telephone [facility] MEDICINE [address] [place], [place] [phone] Lauryn Cunningham, LUISITO Recommend OSTEOLOGIST Tier 2 Social History Tobacco Use Types Packs/Day Years [...] Telephone Encounter - Lauryn Cunningham RN - 11/07/2024 7:37 AM EST What OSTEOLOGIST Tier would you like this patient to be? I recommend Tier 2, please let me know if you agree or would rather patient be in another OSTEOLOGIST Tier. Tier 1 = HIGH RISK, Monthly OSTEOLOGIST visits Tier 2 = MODerate RISK, Q3 Month visits Tier 3 = LOW RISK = Q4-6 month visits documented in this encounter Plan of Treatment Upcoming Encounters Date Type Department Care Team (Late st Contact Info) Description 11/14/2024 11:15 AM EST Office Visit [facility] MEDICINE [address] [place] [address] Sarah Verduzco, 230 [place] [address] 01/25/2025 10:30 AM EDT Office Visit [facility] OPTOMETRY [address] [place] [address] Cindy Meek, OD 230 [place] [address] 02/08/2025 10:00 AM EDT Clinical Support [facility] MEDICINE [address] [place] [address] Lauryn Cunningham RN documented as of this encounter Visit Diagnoses Not on filedocumented in this encounter Additional Health Concerns Assessment Noted Time PHQ-9 Depression Total Score: 11 024 10:42 AM EDT documented as of this encounter Care Teams Plastic Die Maker Apprentice Relationship Specialty Start Date End Date Sarah Verduzco DO 230 [place] [address] PCP - General Family Medicine 11/21/15 documented as of this encounter
--- OUTSIDE RECORDS SUMMARY | 2024-11-10 16:24 | XMS_ITS | Encounter Summary ---
Author Organization [employer] Address 75 [facility] 7t [place] [address] Care Team Providers Care Retail Representative Name Role Phone Sarah Verduzco DO Primary Care Provider + [phone] Reason for Visit * Reason Onset Date Comments Nurse Triage 11/16/2023 Encounter Details Date Type Department Care Team ([facility] st Contact Info) Description 11/16/2023 Telephone [facility] MEDICINE [address] [place], [place] [phone] Sarah Verduzco DO 230 [place], [place] [phone] Nurse Triage Social History Tobacco Use Types [...] Description 11/14/2024 11:15 AM EST Office Visit [facility] MEDICINE [address] [place] [address] Sarah Verduzco DO [address] [place] [address] 01/25/2025 10:30 AM EDT Office Visit [facility] OPTOMETRY [address] [place] [address] Cindy Meek, OD 230 [place] [address] 02/08/2025 10:00 AM EDT Clinical Support [facility] MEDICINE [address] [place] [address] Lauryn Cunningham, LUISITO documented as of this encounter Visit Diagnoses Not on filedocumented in this encounter Additional Health Concerns Assessment Noted Time PHQ-9 Depression Total Score: 24 023 8:54 AM EDT documented as of this encounter Care Teams Retail Representative Relationship Specialty Start Date End Date Sarah Verduzco DO [address] [place] [address] PCP - General Family Medicine 11/21/15 documented as of this encounter
--- OUTSIDE RECORDS SUMMARY | 2024-11-10 16:24 | XMS_ITS | Encounter Summary ---
Author Organization [employer] Address 75 [facility] 7t [place] [address] Care Team Providers Care Oil And Gas Drafter Name Role Phone Sarah Verduzco DO Primary Care Provider + [phone] Reason for Visit * Reason Comments Med Refill Encounter Details Date Type Department Care Team ([facility] Contact Info) Description 10/05/2024 Refill [facility] MEDICINE 230 [place], [place] [phone] Sarah Verduzco DO 230 [place], [place] [phone] Social History Tobacco Use Types Packs/Day Years [...] Description 11/14/2024 11:15 AM EST Office Visit [facility] MEDICINE [address] [place] [address] Sarah Verduzco DO [address] [place] [address] 01/25/2025 10:30 AM EDT Office Visit [facility] OPTOMETRY [address] [place] [address] Cindy Meek, OD 230 [place] [address] 02/08/2025 10:00 AM EDT Clinical Support [facility] MED[facility]INE [address] [place] [address] Lauryn Cunningham, LUISITO documented as of this encounter Visit Diagnoses Not on filedocumented in this encounter Additional Health Concerns Assessment Noted Time PHQ-9 Depression Total Score: 11 024 10:42 AM EDT documented as of this encounter Care Teams Oil And Gas Drafter Relationship Specialty Start Date End Date Sarah Verduzco DO [address] [place] [address] PCP - General Family Medicine 11/21/15 documented as of this encounter
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
--- OUTSIDE RECORDS SUMMARY | 2024-11-10 16:24 | XMS_ITS | Encounter Summary ---
Author Organization [employer] Address 75 [facility] 7t [place] [address] Care Team Providers Care Metal Spraying Machine Operator Name Role Phone Sarah Verdzuco DO Primary Care Provider + [phone] Reason for Visit * Reason Comments Med Refill Encounter Details Date Type Department Care Team (Late st Contact Info) Description 04/19/2023 Refill [facility] [address] [place] [address] Alexa Padgett FNP [address] [place] [address] Dept [place] [address] Chronic bilateral low back pain without sciatica [...] 11/14/2024 11:15 AM EST Office Visit [facility] [address] [place] [address] Sarah Verduzco DO [address] [place] [phone] 01/25/2025 10:30 AM EDT Office Visit [facility] OPTOMETRY [address] [place] [address] Cindy Meek, OD 230 [place] [address] 02/08/2025 10:00 AM EDT Clinical Support [facility] 230 [place], [place] [phone] Lauryn Cunningham RN documented as of this encounter Visit Diagnoses Diagnosis Chronic bilateral low back pain without sciatica documented in this encounter Additional Health Concerns Assessment Noted Time PHQ-9 Depression Total Score: 16 023 10:36 AM EDT documented as of this encounter Care Teams Metal Spraying Machine Operator Relationship Specialty Start Date End Date Sarah Verduzco DO 230 [place] [address] PCP - General Family Medicine 11/21/15 documented as of this encounter
--- OUTSIDE RECORDS SUMMARY | 2024-11-10 16:24 | XMS_ITS | Clinical Summary ---
Author Organization 175 [facility] Address 175 [place] [address] Phone Care Team Providers Care Oil Well Services Superintendent Name Role Phone Sarah Verduzco Primary Care Provider [phone] Allergies Active Allergy Reactions Criticality Noted Date [...] study, she states it was done at [facility] neurology, we called to have it faxed over, it is dated 09/09/2023 and showed normal motor and sensory nerve conduction study. Normal EMG except may suggest mild chronic L5 radiculopathy. She also had lumbar spine MRI 07/02/2024 at [facility], there is no official report from radiology. 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: Tier II (visit every 3 [...] Review of the cervical spine MRI at [place] dated 02/26/2024 shows a solid arthrodesis at [...] images of her prior C-spine MRI from [facility] 02/26/2024 that showed solid arthrodesis C6-7, right [...] Team Description 10/20/2024 8:00 AM EST Evaluation [facility] Outpatient Rehabilitation - [address] [place] [address] Darby Chirinos PT Cervical spondylosis with radiculopathy (Primary Dx) 09/27/2024 Telephone Neuro[facility] [place] - [address] [place] [address] Mimi Newsome PA from Last 3 Months Immunizations Name Administration Dates Next Due Tdap Tetanus diptheria acell ular pertussis (Boostrix; Adacel) 7yo and older 12/13/2022,06/10/2022 Surgical History Surgery Date Site/Laterality Comments HYSTERECTOMY PROCEDURE: HISTORICAL HYSTERECTOMY TUBAL LIGATION PROCEDURE: HISTORICAL TUBAL LIGATION CHOLECYSTECTOMY PROCEDURE: ID LAPAROSCOPY SURG CHOLECYSTECTOMY EYE SURGERY PROCEDURE: HISTORICAL [...] patient's age to complete this topic Insurance [employer] MEDICARE Member Subscriber Plan / Payer (Ef fective 2016-Present) Name:Miryam Fan Relation to Subscriber:Self Name:Miryam Fan Payer ID:[id number] Group ID:[id number] Type:Not on file Address: [place] [address] [address] [id number] Care Teams Oil Well Services Superintendent Relationship Specialty Start Date End Date Sarah Verduzco DO [address] [place] [address] PCP - General Internal Medicine 02/09/18
--- OUTSIDE RECORDS SUMMARY | 2024-11-10 16:24 | XMS_ITS | Encounter Summary ---
Author Organization [facility] Address [address] [place] [address] Care Team Providers Care Seating Upholsterer Name Role Phone Sarah Verduzco DO Primary Care Provider Aura Kramer MD Unavailable [phone] Mimi Newsome PA-C Unavailable [phone] Kaleb Tripathi PA-C Unavailable [phone] Encounter Details Date Type Department Care Team Description 12/31/2021 Orders Only [facility] Neurosurgery [place] 175 [facility] [address] [place] [address] Kaleb Tripathi PA-C [address] [phone] Neck pain Social History Tobacco Use Types Packs/Day [...] on file documented as of this encounter Procedures Procedure Name Priority Date/Time Associated Diagnosis Comments MRI OF CERVICAL SPINE NO CONTRAST Routine 022 Neck pain documented in this encounter Results * MRI OF CERVICAL SPINE NO CONTRAST (12/31/2021) Kaleb Tripathi PA-C MRI [address] [place] documented in this encounter Visit Diagnoses Diagnosis Neck pain Cervicalgia documented in this encounter Care Teams Seating Upholsterer Relationship Specialty Start Date End Date Sarah Verduzco DO PCP - General Internal Medicine 02/09/18 Aura Pollock MD [address] [phone] Surgeon Neurosurgery 12/09/21 Mimi Newsome PA-C [address] [address] Specialist Neurosurgery 12/09/21 Kaleb Tripathi PA-C [address] [phone] Specialist Neurosurgery 12/09/21 documented as of this encounter
--- OUTSIDE RECORDS SUMMARY | 2024-11-10 16:24 | XMS_ITS | Encounter Summary ---
Author Organization [facility] Address [address] [place] [address] Care Team Providers Care Watch Band Assembler Name Role Phone Sarah Verduzco DO Primary Care Provider Aura Kramer MD Unavailable [phone] Mimi Newsome PA-C Unavailable Kaleb Tripathi PA-C Unavailable [phone] Encounter Details Date Type Department Care Team Description 12/06/2021 Transfer Records [facility] Medical [facility] Neurosurgery [place] [address] [address] Kaleb Tripathi PA-C [address] [address] Social History Tobacco Use Types Packs/Day Years Used Date Smoking Tobacco: Former Smokeless Tobacco: Never Sex Assigned at Date Recorded Not on file documented as of this encounter Plan of Treatment Not on file documented as of this encounter Visit Diagnoses Not on filedocumented in this encounter Care Teams Watch Band Assembler Relationship Specialty Start Date End Date Sarah Verduzco DO PCP - General Internal Medicine 02/09/18 Aura Pollock MD [address] [phone] Surgeon Neurosurgery 12/09/21 Mimi Newsome PA-C [address] [address] Specialist Neurosurgery 12/09/21 Kaleb Tripathi PA-C 175 [facility] [address] [place] [address] Specialist Neurosurgery 12/09/21 documented as of this encounter
--- OUTSIDE RECORDS SUMMARY | 2024-11-10 16:24 | XMS_ITS | Encounter Summary ---
Author Organization [employer] Address 75 [facility] 7t [place] [address] Care Team Providers Care Sheet Metal Assembler Name Role Phone Sarah Verduzco DO Primary Care Provider + [phone] Reason for Visit * Reason Comments Med Refill Encounter Details Date Type Department Care Team ([facility] Contact Info) Description 04/06/2024 Refill [facility] MEDICINE [address] [place], [place] [phone] Sarah Verduzco DO [address] [place], [place] [phone] Social History Tobacco Use Types Packs/Day Years [...] Description 11/14/2024 11:15 AM EST Office Visit [facility] MEDICINE 230 [place] [address] Sarah Verduzco DO [address] [place] [address] 01/25/2025 10:30 AM EDT Office Visit [facility] OPTOMETRY [address] [place] [address] Fantasma, Cindy, OD [address] [place] [address] 02/08/2025 10:00 AM EDT Clinical Support [facility] MEDICINE [address] [place] [address] Lauryn Cunningham, RN documented as of this encounter Visit Diagnoses Not on filedocumented in this encounter Additional Health Concerns Assessment Noted Time PHQ-9 Depression Total Score: 24 023 8:54 AM EDT documented as of this encounter Care Teams Sheet Metal Assembler Relationship Specialty Start Date End Date Sarah Verduzco DO [address] [place] [address] PCP - General Family Medicine 11/21/15 documented as of this encounter
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
--- OUTSIDE RECORDS SUMMARY | 2024-11-10 16:24 | XMS_ITS | Clinical Summary ---
Author Organization [employer] Address [address] [facility] [address] [place] [address] Care Team Providers Care Archeologist Classical Name Role Phone DellaSarah mills Primary Care Provider + [phone] Allergies Active Allergy Reactions Criticality Noted Date [...] 5 Active cholecalciferol (Vitamin D-3) 50 MCG (2000 UT) capsuleIndication s:Vitamin D deficiency Take 1 capsule (50 mcg) by mouth Once per day. 30 capsule 11 Active atorvastatin (Lipitor) 40 MG tabletIndications :Other hyperlipidemia Take 1 tablet (40 mg) by mouth Once per day. 30 tablet 11 Active baclofen (Lioresal) 10 MG tablet Take [...] 28, 2024. 112 tablet 025 2024 Active butalbital-acetam inophen-caffeine 50-325-40 MG tabletIndications :Chronic nonintractable headache, unspecified headache type TAKE 1 TABLET BY MOUTH AT ONSET OF HEADACHE, MAY REPEAT AFTER 4 HOURS NEEDED, MAX 2 TABS PER DAY. 20 tablet 1 025 Active butalbital-acetam inophen-caffeine 50-325-40 MG tabletIndications :Chronic nonintractable headache, unspecified headache type TAKE 1 TABLET BY MOUTH AT ONSET OF HEADACHE, MAY REPEAT AFTER 4 HOURS NEEDED, MAX 2 TABS PER DAY. 20 tablet 1 024 2024 Discontinued oxyCODONE-acetami nophen (Percocet) 5-325 MG tabletIndications :Chronic bilateral low back pain with left-sided sciatica Take 1 tablet by mouth every 6 (six) hours if needed for severe pain for up to 28 days. Do not start before September 27, 2024. 112 tablet 025 2024 Discontinued(R eorder (will not trigger notification to Pharmacy)) Active Problems Problem Noted Date Diagnosed Date Chronic, continuous use of opioids 07/07/2024 Overview (07/07/2024): Dx: Rx: Last DYNAMIC BALANCER agreement: Tier II (visit every 3 months) [...] She request prescription to be send to [facility] pharmacy due to not being covered at [facility]. 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 Overweight (BMI 25.0-29.9) 11/21/2015 0 01/27/2023 Encounters Date Type Department Care Team Description 11/07/2024 1:30 PM EST Clinical Support [facility] [address] [place] [address] Lauryn Cunningham, transport technician neck pain (Primary Dx) 11/07/2024 Telephone [facility] [address] [place] [address] Lauryn Cunningham, LUISITO DYNAMIC BALANCER Renewal today 11/07/2024 Travel 11/07/2024 Telephone [facility] [address] [place] [address] Lauryn Cunningham RN Recommend DYNAMIC BALANCER Tier 2 10/31/2024 Refill [facility] [address] [place] [address] Sarah Verduzco DO Chronic nonintractable headache, unspecified headache type 10/27/2024 Orders Only [facility] [address] [place] [address] Laurent Tatum ANP Fascial defect (Primary Dx) 10/24/2024 Refill [facility] [address] [place] [address] Sarah Verduzco DO Chronic bilateral low back pain with left-sided sciatica 10/24/2024 Telephone [facility] [address] [place] [address] Sarah Verduzco DO Appointment Request 10/22/2024 Refill [facility] [address] [place] [address] Sarah Verduzco DO 10/06/2024 Refill [facility] [address] [place] [address] Sarah Verduzco DO 10/05/2024 Refill [facility] [address] [place] [address] Sarah Verduzco DO 09/30/2024 Telephone [facility] [address] [place] [address] Lennie Cuenca MA Recall Appt. 09/30/2024 Travel 09/26/2024 3:40 PM EST Office Visit [facility] [address] [facility] [place] [address] Laurent Tatum ANP Acute cystitis with hematuria (Primary Dx); Increased frequency of urination; Chronic neck pain; Chronic bilateral low back pain without sciatica; RLQ abdominal pain 09/26/2024 Refill [facility] [address] [facility] [place] [address] Sarah Verduzco DO Chronic bilateral low back pain with left-sided sciatica (Primary Dx) 09/26/2024 Telephone [facility] [address] [place], [place] [address] [place] [address] Sarah Verduzco DO Nurse Triage 09/21/2024 Orders Only GENERIC EXTERNAL DATA DEPARTMENT Provider, Generic External Data 09/01/2024 Telephone [place] [facility] [address] [place] [address] Sarah Verduzco DO 08/31/2024 Telephone [facility] [address] [facility] [place] [address] Sarah Verduzco DO 08/31/2024 Telephone [facility] [place] [address] Fallon Hawk, LUISITO MRI results 08/30/2024 Orders Only [facility] [address] [place] [phone] Sarah Verduzco DO Family history of brain aneurysm (Primary Dx) 08/24/2024 Orders Only GENERIC EXTERNAL DATA DEPARTMENT Provider, Generic External Data 08/23/2024 Telephone [place] [facility] [address] [facility] [place] [address] Sarah Verduzco DO 08/22/2024 Telephone [facility] [place] [address] Sarah Verduzco DO Appointment Request 08/21/2024 Refill [facility] [place] [facility] [place] [address] Sarah Verduzco DO 08/18/2024 Refill [facility] [address] [place] [address] Sarah Verduzco DO Chronic bilateral low back pain with left-sided sciatica 08/18/2024 Telephone [facility] [address] [place] [address] Sarah Verduzco DO Appointment Request 08/16/2024 Telephone [place] [facility] [address] [place] [address] Sarah Verduzco DO from Last 3 Months Immunizations Name Administration [...] the past 12 months, has t he [employer], gas, oil or water [employer] threatened to shut off services in your [...] Description 11/14/2024 11:15 AM EST Office Visit [facility] [address] [place] [address] Sarah Verduzco DO [address] [place] [address] 01/25/2025 10:30 AM EDT Office Visit [facility] OPT[facility]ET[facility] [address] [place] [address] Cindy Meek, OD [address] [place] [address] 02/08/2025 10:00 AM EDT Clinical Support [facility] [address] [place] [address] Lauryn Cunningham, LUISITO Health Maintenance Due Date Last Done Comments CT Colonography 1966 FIT DNA/Cologuard 1966 FIT 1965 FOBT 1965 Sigmoidoscopy 1966 Hepatitis B Vaccines (1 of 3 - 19+ 3-dose series) 1985 Pneumococcal Vaccine: 50+ Years (1 of 2 - PCV) 1985 Zoster Vaccines (1 of 2) 2016 Colonoscopy 03/24/2022 03/24/2017 Colorectal Cancer Screening 03/24/2022 COVID-19 Vaccine (3 - 2023- season) 2024 02/01/2021, 01/04/2021 Influenza Vaccine (#1) [...] Procedure Name Priority Date/Time Associated Diagnosis Comments POCT NEREYDA-14 URINE DRUG SCREEN Routine 11/07/2024 2:06 PM EST Chronic neck pain US PELVIS LIMITED Routine 10/27/2024 1:0 1 PM EST CULTURE, URINE, ROUTINE Routine 09/26/2024 3:58 PM [...] mammogram for malignant neoplasm of breast Melasma COLONOSCOPY Routine 03/24/2017 8:58 AM EDT from Last 3 Months or Most Recently Relevant to Health Maintenance Results * POCT NEREYDA-14 Urine Drug Screen (11/07/2024 2:06 PM EST) Oxycodone Screen, Urine Positive Urine Urine specimen obtained by clean catch procedure / Unknown 11/07/2024 2:06 PM EST Narrative Lauryn Cunningham, RN - 11/07/2024 2:06 PM EST UTOX cup Lot#[id number] Exp. 05/03/26 Internal Pass Control Sarah Verduzco DO POINT OF CARE TEST ENTER/DAVID T ORDERABLES Final Result * US Pelvis Limited (10/27/2024 1:01 PM EST) Anatomical Region Laterality Modality Pelvis Ultrasound 10/27/2024 1:01 PM EST Narrative 10/27/2024 1:01 PM EST ? [facility] ?[address] ?[place] [address] ? Ultrasound Report ? Signed ? Patient: Miryam Fan ?MR#: [id number] ?? 06 ? : 1965 ?Acct:[id number] ? Age/Sex: 58 / F ?ADM Date: 10/27/24 ? Loc: HO.US ? Attending Dr: Laurent Tatum APPARATUS OPERATOR ? Ordering Physician: LAURENT TATUM NP ?? Date of Service: 10/27/24 ?? Procedure(s): US pelvic limited ?? Accession Number(s): [id number] ? cc: Sarah Verduzco DO; LAURENT TATUM APPARATUS OPERATOR ? CLINICAL HISTORY: ?hernia R lower or upper quadrant ? US abdominal wall nonvascular ? Comparison: None ? Findings: ?? Sonographic evaluation in the area of clinical concern with and without ?? Valsalva right lower quadrant anterior abdominal wall to the right of the ?? umbilicus demonstrates a 7 mm fascial defect containing fat with a fascial ?? defect most conspicuous during Valsalva. No masses lymphadenopathy or ?? abnormal fluid collections demonstrated ? Impression: ?? A 7 mm fascial defect is demonstrated in the anterior abdominal wall right ?? lower quadrant to the right of the umbilicus containing fat most ?? conspicuous during Valsalva ? This document has been electronically signed by: Aubrey Kumar MD on ?? 10/27/2024 13:01:09 ? Dictated By: ?Aubrey Kumar MD ? Signed By: ?<Electronically signed by Aubrey Kumar MD in OV> ?10/27/24 1301 ? DD/ 1301 ? TD/TT: 10/27/24 1301 ? [employer]: ? Procedure Note Donotmichelleter, Image - 10/27/2024 [place] [address] Ultrasound Report Signed Patient: Marco Fan#: [id number] 06 : 1965Acct:[id number] Age/Sex: 58 / FADM Date: 10/27/24 Loc: HO.US Attending Dr: Laurent Tatum NP Ordering Physician: LAURENT TATUM NP Date of Service: 10/27/24 Procedure(s): US pelvic limited Accession Number(s): [id number] cc: Sarah Verduzco DO; LAURENT TATUM NP CLINICAL HISTORY: ?hernia R lower or upper quadrant US abdominal wall nonvascular Comparison: None Findings: Sonographic evaluation in the area of clinical concern with and without Valsalva right lower quadrant anterior abdominal wall to the right of the umbilicus demonstrates a 7 mm fascial defect containing fat with a fascial defect most conspicuous during Valsalva. No masses lymphadenopathy or abnormal fluid collections demonstrated Impression: A 7 mm fascial defect is demonstrated in the anterior abdominal wall right lower quadrant to the right of the umbilicus containing fat most conspicuous during Valsalva This document has been electronically signed by: Aubrey Kumar MD on 10/27/2024 13:01:09 Dictated By: Aubrey Kumar MD Signed By: <Electronically signed by Aubrey Kumar MD in OV> 10/27/24 1301 DD/ 1301 TD/TT: 10/27/24 1301 Quality Technician [employer]: us Laurent Tatum ANP IMG US PROCEDURES Edited Result - Final * Culture, Urine, Routine (09/26/2024 3:58 PM EST) Urine Urine specimen obtained by clean catch procedure / Unknown 09/26/2024 3:58 PM EST 09/27/2024 11:22 AM EST Comment:UACC Narrative [facility] - 09/29/2024 7:48 AM EST Escherichia coli Quant > 100,000 cfu/mL Escherichia coli: Ampicillin >=32(R) Escherichia coli: Cefazolin <=1(S) Escherichia coli: Cefepime <=0.12(S) Escherichia coli: Ceftriaxone <=0.25(S) Escherichia coli: Ciprofloxacin 1(R) Escherichia coli: Gentamicin <=1(S) Escherichia coli: Nitrofurantoin <=16(S) Escherichia coli: Trimethoprim/Sulfamethoxazole >=320(R) Specimen Source: Urine clean catch us Laurent NEWS[facility] LAB MICROBIOLOGY - GENERAL ORDER ZACH Final Result [facility] [address] [place] [phone] * (ABNORMAL) POCT Urinalysis (09/26/2024 2:43 PM EST) Color, UA Yellow Clarity, UA Clear Glucose, UA Negative Bilirubin, UA Negative Ketones, UA Negative Spec Grav, UA 1.010 Blood, UA Positive(A) Negative, None Detected Comment:moderate pH, UA 6.0 Protein, UA Negative Urobilinogen, UA 0.2 Leukocytes, UA Trace Negative, Rare, Trace Nitrite, UA Positive(A) Negative, None Detected Urine 09/26/2024 2:43 PM EST us Laurent NEWSOME POINT OF CARE TEST ENTER/EDIT OR DERABLES Final Result * MRA Head w/o Contrast (09/21/2024 9:30 AM EST) Anatomical Region Laterality Modality Head, Neck Magnetic Resonan ce 09/21/2024 9:30 AM EST Narrative 09/23/2024 9:33 AM EST ? [facility] ?[address] ?[place] [address] ? Magnetic Resonance Report ? Signed ? Patient: Fan,Miryam ?MR#: [id number] ?? 06 ? : 1965 ?Acct:[id number] ? Age/Sex: 58 / F ?ADM Date: 09/21/24 ? Loc: HO.US ? Attending Dr: Noreen Salazar MD ? Ordering Physician: Sarah Verduzco DO ?? Date of Service: 09/21/24 ?? Procedure(s): MR angio head wo con ?? Accession Number(s): [id number] ? cc: Sarah Verduzco DO ? EXAMINATION: MR BRAIN ANGIOGRAPHY WITHOUT IV CONTRAST ? HISTORY: sister with brain aneurysm requiring intervention. ? TECHNIQUE: ??2D [id number] MR angiography of the head was performed. [...] ??Jaime Helms MD ??09/23/2024 09:31 AM EST ?? RP ? Dictated By: ?Jaime Helms MD ? Signed By: ?<Electronically signed by Jaime Helms MD in OV> ?09/23/24 0931 ? DD/ 0930 ? TD/TT: 09/21/24 0950 ? Quality Technician [employer]: ? Procedure Note Jamie, Image - 09/23/[address] [address] Magnetic Resonance Report Signed Patient: Marco Fan#: [id number] 06 : 1965Acct:[id number] Age/Sex: 58 / FADM Date: 09/21/24 Loc: HO. Attending Dr: Noreen Salazar MD Ordering Physician: Sarah Verduzco DO Date of Service: 09/21/24 Procedure(s): MR angio head wo con Accession Number(s): [id number] cc: Sarah Verduzco DO EXAMINATION: MR BRAIN ANGIOGRAPHY WITHOUT IV CONTRAST HISTORY: sister with brain aneurysm requiring intervention. TECHNIQUE: 2D igvj-yg-bwbtul MR angiography of the head was performed. [...] in OV> 09/23/[address] DD/ 9 TD/TT: 09/21/24949 Quality Technician [employer]: Sarah Verduzco DO IMG MRI PROCEDURES Final Res ult * Cell Block (09/21/2024 8:19 AM EST) 09/21/2024 8:19 AM EST 09/21/2024 11:55 AM EST Narrative [facility] - 09/26/2024 6:23 PM EST ----- ------- Name: Miryam Fan ? Age/Sex: 58/F ? : 1965 Unit#: [id number] ?? Attend Dr: Noreen Salazar MD ?Re09/21/24 ?Status: DEP REF ? Location: HO. ? Disch: ? ----- ------- SPEC : [id number] ?RECD: 09/21/24-1154 ? STATUS: ??SOUT ? REQ NUM: [id number] ? PILI: 09/21/24-818 ? SUBM DR: Noreen Salazar MD ? ENTERED: ??09/21/24-1404 ?SP TYPE: Cytology ? OTHR DR: Sarah Verduzco DO ? ORDERED: ??Cell Block, Fine Ndl Asp ? Diagnosis ?? Thyroid, left superior nodule, fine needle aspiration biopsy (cytology and cell block): ? -[place] [facility] Classification:? Benign (category 2) ? -Description:? [...] Copies To: ?? Sarah Verduzco DO ?? [facility] ?? [address] ?? [place] [address] ?? [phone] ?? Noreen Salazar MD ?? [facility] ?? [address] ?? [place] [address] ?? [phone] ?? [email or web address] ----- ------- Signed (signature on file) Tammy Velasquez 09/26/241822 ? ----- ------- ? END OF REPORT ? us Generic External Data Provider LAB CYTOLOGY ALEAHE KETTY Final Result [facility] [address] [place] [phone] * Hematoxylin and Eosin Stain (08/24/2024 10:25 AM EST) 08/24/2024 10:2 5 AM EST 08/24/2024 12:07 PM EST Narrative [facility] - 08/26/2024 11:57 AM EST ----- ------- Name: Miryam Fan ? Age/Sex: 58/F ? : 1965 Unit#: [id number] ?? Attend Dr: Jensen Garvin MD ?Re08/24/24 ?Status: DEP SDC ? Location: HO.SSS ?Disch: ? ----- ------- SPEC : [id number] ? RECD: 08/24/24-1206 ? STATUS: ??SOUT ? REQ NUM: [id number] ? PILI: 08/24/24-5 ? SUBM DR: Jensen [...] ? Age/Sex: 58/F ? : 1965 Unit#: [id number] ?? Attend Dr: Jensen Garvin MD ?Re08/24/24 ?Status: DEP SDC ? Location: HO.SSS ?Disch: ? ----- ------- SPEC : [id number] ? RECD: 08/24/24 ? STATUS: ??SOUT ? REQ NUM: [id number] ? PILI: 08/24/24-5 ? SUBM DR: Jensen Garvin MD ? ENTERED: ??08/24/24-1214 ?SP TYPE: Surgical ? OTHR DR: Sarah Verduzco DO ? ORDERED: ??HE Stain/, Gross Micro L4/8, IHC, Special st. 2/2, [...] formalin labeled ?terminal ileum bx's? are 2 at-pink irregular tissue fragments each measuring 0.25 cm, [...] Copies To: ?? Jensen Garvin MD ?? [facility] ?? [address] ?? [place] [address] ?? [phone] ? CONTINUED ON NEXT PAGE ----- ------- Name: Fan,Miryam ? Age/Sex: 58/F ? : 1965 Unit#: [id number] ?? Attend Dr: Jensen Garvin MD ?Re08/24/24 ?Status: DEP SDC ? Location: HO.SSS ?Disch: ? ----- ------- SPEC : [id number] ? RECD: 08/24/24-1206 ? STATUS: ??SOUT ? REQ NUM: [id number] ? PILI: 08/24/24-5 ? SUBM DR: Jensen Garvin MD ? ENTERED: ??08/24/24-1214 ?SP TYPE: Surgical ? OTHR DR: Sarah Verduzco DO ? ORDERED: ??HE Stain/21, Gross Micro L4/8, IHC, Special st. 2/2, H. pylori, AB/PAS/2 ? Copies To: ??(Continued) ?? Sarah Verduzco DO ?? [facility] ?? [address] ?? [place] [address] ?? [phone] ----- ------- Signed (signature on file) Kaleb Gipson MD 08/26/24 1157 ? ----- ------- ? END OF REPORT ? us Generic External Data Provider LAB BLOOD ORDERAB LES Final Result Performing Organization Address City/State/[facility] Co de Phone Number [facility] [address] [place] [address] [phone] * BI Mammogram Screening Tomosynthesis Bilateral (06/22/2024 9:45 AM EDT) Anatomical Region Laterality Modality Breast Bilateral Mammography 06/22/2024 9:45 AM EDT Narrative 07/04/2024 6:01 PM EDT ? [facility] [place] ? [address] ?[place] [address] ? Mammography Report ? Signed ? Patient: Fan,Miryam ?MR#: [id number] ?? 06 ? : 1965 ?Acct:[id number] ? Age/Sex: 58 / F ?ADM Date: 10//24 ? Loc: HO.MAMMO ? Attending Dr: Sarah Verduzco DO ? Ordering Physician: Sarah Verduzco DO ?Results: 1N ?? egative ? Date of Service: 06/22/24 ?Follow Up: 1 Year From Orig ?? inal Mammogram ? Procedure(s): MM tomosynthesis screening BI ?? Accession Number(s): [id number] ? cc: Sarah Verduzco DO ? EXAMINATION: [...] 07/04/24 175 ? DD/ 0945 ? TD/TT: 06/22/24 0958 ? Quality Technician [employer]: ? Procedure Note Donotuseinterpreter, Image - 07/04/2024 [place] [facility] [address] [place], [place] [address] Mammography Report Signed Patient: Miryam FanMR#: [id number] 06 : 1965Acct:[id number] Age/Sex: 58 / FADM Date: 06/22/24 Loc: HO.MAMMO Attending Dr: Sarah Verduzco DO Ordering Physician: Sarah Verduzcoults: 1N egative Date of Service: 06/22/24Follow Up: 1 Year From Orig inal Mammogram Procedure(s): MM tomosynthesis screening BI Accession Number(s): [id number] cc: Sarah Verduzoc DO EXAMINATION: MM SCREENING DIGITAL BREAST TOMOSYNTHESIS, [...] Valerio DO in OV> 07/04/24 1757 DD/ 0945 TD/TT: 06/22/24 0958 Quality Technician [employer]: Sarah Verduzco DO IMG BI PROCEDURES Edited Res ult - Final * Hepatitis C Antibody with Reflex to HCV, RNA, Quantitative, Real-Time PCR (05/04/2024 12:27 PM EDT) Hepatitis C Antibody Nonreactive Nonreactive [facility] Comment:Antibodies to HCV no t detected; does not exclude early acuteHCV infection. Blood Venous blood specimen / Unknown 05/04/2024 12:27 PM EDT 05/04/2024 1:01 PM EDT us Sarah Verduzco DO LAB BLOOD ORDERABLES Final R esult [facility] [address] [place] [phone] * HIV-1/2 Antigen and Antibodies, Fourth Generation, with Reflexes (05/04/2024 12:27 PM EDT) HIV AB/AG Nonreactive Nonreactive [facility] Comment:HIV-1 p24 Ag and/or HIV-1/HIV-2 Ab not detected.A test result that is nonreactive does not exclude thepossibility of exposure to or infection with HIV-1 and/orHIV-2. Nonreactive results in this assay for individualswith prior exposure to HIV-1 and/or HIV-2 may be due toantigen and antibody levels that are below the limit ofdetection of this assay.The [facility] HIV Ag/Ab Combo assay result andsupplemental assay results should be interpreted inconjunction with the patient's clinical presentation,history and other laboratory results. If the results areinconsistent with clinical evidence, additional testing issuggested to confirm the result. Blood Venous blood specimen / Unknown 05/04/2024 12:27 PM EDT 05/04/2024 1:01 PM EDT us Sarah Verduzco DO LAB BLOOD ORDERABLES Final R esult [facility] [address] [place] [address] [phone] * Hm Colonoscopy (03/24/2017 8:58 AM EDT) us Historical Provider MD HEALTH MAINTENANCE Final Result from Last 3 Months or Most Recently Relevant to Health Maintenance Insurance [facility] Care Teams Archeologist Classical Relationship Specialty Start Date End Date Sarah Verduzco DO [address] [place] [address] PCP - General Family Medicine 11/21/15
--- OUTSIDE RECORDS SUMMARY | 2024-11-10 16:24 | XMS_ITS | Encounter Summary ---
Author Organization [employer] Address [address] [facility] 7[address] [place] [address] Care Team Providers Care Data Entry Assistant Name Role Phone Sarah Verduzco DO Primary Care Provider + [phone] Reason for Visit * Reason Comments Med Refill Encounter Details Date Type Department Care Team ([facility] Contact Info) Description 01/05/2024 Refill [facility] [address] [place], [place] [phone] Sarah Vreduzco DO [address] [place], [place] [phone] Social History Tobacco Use Types Packs/Day Years [...] Description 11/14/2024 11:15 AM EST Office Visit [facility] [address] [place] [address] Sarah Verduzco DO [address] [place] [address] 01/25/2025 10:30 AM EDT Office Visit [facility] OPTOMETRY [address] [place] [address] Fantasma, Cindy, OD [address] [place] [address] 02/08/2025 10:00 AM EDT Clinical Support [facility] [address] [place] [address] Lauryn Cunningham, RN documented as of this encounter Visit Diagnoses Not on filedocumented in this encounter Additional Health Concerns Assessment Noted Time PHQ-9 Depression Total Score: 24 023 8:54 AM EDT documented as of this encounter Care Teams Data Entry Assistant Relationship Specialty Start Date End Date Sarah Verduzco DO [address] [place] [address] PCP - General Family Medicine 11/21/15 documented as of this encounter
--- OUTSIDE RECORDS SUMMARY | 2024-11-10 16:24 | XMS_ITS | Encounter Summary ---
Author Organization [employer] [facility] Address 75 [facility] 7t [place] [address] Care Team Providers Care Science Technicians Name Role Phone Sarah Verduzco DO Primary Care Provider + [phone] Reason for Visit * Reason Comments Med Refill Encounter Details Date Type Department Care Team (Late Contact Info) Description 04/19/2023 Refill [facility] MEDICINE [address] [place] [address] [phone] Sarah Verduzco DO [address] [place] [address] Chronic GERD Social History Tobacco Use Types [...] Description 11/14/2024 11:15 AM EST Office Visit [facility] MEDICINE [address] [place], [place] [phone] Sarah Verduzco DO 230 [place], [place] [phone] 01/25/2025 10:30 AM EDT Office Visit [facility] OPTOMETRY [address] [place] [address] Cindy Meek, OD 230 [place] [address] 02/08/2025 10:00 AM EDT Clinical Support [facility] MEDICINE [address] [place], [place] [phone] Lauryn Cunningham RN documented as of this encounter Visit Diagnoses Diagnosis Chronic GERD documented in this encounter Additional Health Concerns Assessment Noted Time PHQ-9 Depression Total Score: 16 023 10:36 AM EDT documented as of this encounter Care Teams Science Technicians Relationship Specialty Start Date End Date Sarah Verduzco DO 230 [place] [address] PCP - General Family Medicine 11/21/15 documented as of this encounter
--- OUTSIDE RECORDS SUMMARY | 2024-11-10 16:24 | XMS_ITS | Encounter Summary ---
Author Organization [employer] Address 75 [facility] 7t [place] [address] Care Team Providers Care Supplier Relationship Director Name Role Phone Sarah Verduzco DO Primary Care Provider + [phone] Reason for Visit * Reason Onset Date Comments Med Refill 10/24/2024 Encounter Details Date Type Department Care Team (Late st Contact Info) Description 10/24/2024 Refill [facility] MEDICINE 230 [place], [place] [phone] Sarah Verduzco DO 230 [place], [place] [phone] Chronic bilateral low back pain with left-sided [...] the past 12 months, has t he [employer], gas, oil or water [employer] threatened to shut off services in your [...] 5-325 MG tablet To be sent to: [facility]/pharmacy #[id number] [place] [facility] documented in this encounter Plan of Treatment Upcoming Encounters Date Type Department Care Team (Late st Contact Info) Description 11/14/2024 11:15 AM EST Office Visit [facility] MEDICINE 230 [place], [place] [phone] Sarah Verduzco DO 230 [place] [address] 01/25/2025 10:30 AM EDT Office Visit [facility] OPTOMETRY [address] [place], [place] [phone] Cindy Meek, OD 230 [place] [address] 02/08/2025 10:00 AM EDT Clinical Support [facility] MEDICINE 230 [place] [address] Lauryn [place], LUISITO documented as of this encounter Visit Diagnoses Diagnosis Chronic bilateral low back pain with left-sided sciatica documented in this encounter Additional Health Concerns Assessment Noted Time PHQ-9 Depression Total Score: 11 024 10:42 AM EDT documented as of this encounter Care Teams Supplier Relationship Director Relationship Specialty Start Date End Date Sarah Verduzco DO 230 [place] [address] PCP - General Family Medicine 11/21/15 documented as of this encounter
--- OUTSIDE RECORDS SUMMARY | 2024-11-10 16:24 | XMS_ITS | Encounter Summary ---
Author Organization [employer] Address 75 [facility] 7t [place] [address] Care Team Providers Care Inspector Aluminum Boat Name Role Phone Sarah Verduzco DO Primary Care Provider + [phone] Reason for Visit * Reason Comments Med Refill Encounter Details Date Type Department Care Team ([facility] Contact Info) Description 03/31/2024 Refill [facility] MEDICINE [address] [place], [place] [phone] Sarah Verduzco DO 230 [place], [place] [phone] Social History Tobacco Use Types Packs/Day Years [...] Description 11/14/2024 11:15 AM EST Office Visit [facility] MEDICINE [address] [place] [address] Sarah Verduzco DO 230 [place] [address] 01/25/2025 10:30 AM EDT Office Visit [facility] OPTOMETRY [address] [place] [address] Fantasma, Cindy, OD 230 [place] [address] 02/08/2025 10:00 AM EDT Clinical Support [facility] MEDICINE [address] [place] [address] Lauryn [place], RN documented as of this encounter Visit Diagnoses Not on filedocumented in this encounter Additional Health Concerns Assessment Noted Time PHQ-9 Depression Total Score: 24 023 8:54 AM EDT documented as of this encounter Care Teams Inspector Aluminum Boat Relationship Specialty Start Date End Date Sarah Verduzco DO 230 [place] [address] PCP - General Family Medicine 11/21/15 documented as of this encounter
--- OUTSIDE RECORDS SUMMARY | 2024-11-10 16:24 | XMS_ITS | Encounter Summary ---
Author Organization [employer] Address [address] [facility] [address] 7t [place] [address] Care Team Providers Care Sales Representative Metals Name Role Phone DaxSarah Primary Care Provider + [phone] Encounter Details Date Type Department Care Team (Late st Contact Info) Description 12/22/2023 Orders Only [facility] MEDICINE 230 [place] [address] ProviderTristan MD Social History Tobacco Use Types [...] 11/14/2024 11:15 AM EST Office Visit [facility] MEDICINE [address] [place] [address] Sarah Verduzco DO 230 [place] [address] 01/25/2025 10:30 AM EDT Office Visit [facility] OPTOMETRY [address] [place] [address] Cindy Meek, OD 230 [place] [address] 02/08/2025 10:00 AM EDT Clinical Support [facility] MEDICINE [address] [place] [address] Lauryn Cunningham RN documented as of this encounter Procedures Procedure Name Priority Date/Time Associated Diagnosis Comments HM COLONOSCOPY Routine 03/24/2017 8:58 AM EDT documented in this encounter Results * Hm Colonoscopy (03/24/2017 8:58 AM EDT) us Historical Provider HEALTH MAINTENANCE Final Result documented in this encounter Visit Diagnoses Not on filedocumented in this encounter Additional Health Concerns Assessment Noted Time PHQ-9 Depression Total Score: 24 023 8:54 AM EDT documented as of this encounter Care Teams Sales Representative Metals Relationship Specialty Start Date End Date Sarah Verduzco DO 230 [place] [address] PCP - General Family Medicine 11/21/15 documented as of this encounter
--- OUTSIDE RECORDS SUMMARY | 2024-11-10 16:24 | XMS_ITS | Encounter Summary ---
Author Organization [employer] Address [address] [facility] [address] 7t [place] [address] Care Team Providers Care Residential Field Manager Name Role Phone DellaSarah mills Primary Care Provider + [phone] Encounter Details Date Type Department Care Team (Latest Contact Info) Description 11/07/2024 Travel Social History Tobacco Use Types Packs/Day [...] Description 11/14/2024 11:15 AM EST Office Visit [facility] MEDICINE [address] [place] [address] Sarah Verduzco DO 230 [place] [address] 01/25/2025 10:30 AM EDT Office Visit [facility] OPTOMETRY [address] [place] [address] Cindy Meek, OD 230 [place] [address] 02/08/2025 10:00 AM EDT Clinical Support [facility] MEDICINE 230 [place] [address] Lauryn [place], LUISITO documented as of this encounter Visit Diagnoses Not on filedocumented in this encounter Additional Health Concerns Assessment Noted Time PHQ-9 Depression Total Score: 11 024 10:42 AM EDT documented as of this encounter Care Teams Residential Field Manager Relationship Specialty Start Date End Date Sarah Verduzco DO [address] [place] [address] PCP - General Family Medicine 11/21/15 documented as of this encounter
--- OUTSIDE RECORDS SUMMARY | 2024-11-10 16:24 | XMS_ITS | Encounter Summary ---
Author Organization [employer] Address 75 [facility] 7t [place] [address] Care Team Providers Care Electrical Systems Designer Name Role Phone Sarah Verduzco DO Primary Care Provider + [phone] Reason for Visit * Reason Comments Med Refill Encounter Details Date Type Department Care Team ([facility] Contact Info) Description 10/22/2024 Refill [facility] MEDICINE 230 [place], [place] [phone] Sarah Verduzco DO 230 [place], [place] [phone] Social History Tobacco Use Types Packs/Day Years [...] encounter Miscellaneous Notes * Telephone Encounter - Kellen Lin RN - 10/27/2024 2:51 PM EST Telephone call to pt to advise that US showed very small possible hernia next to belly button on the right. Advised that referral was made to General Surgery for consideration of possible intervention. Explained that that office will call in 1-2 weeks to schedule appt and to expect letter in the mail. Pt verbalized understanding, no further questions. * Telephone Encounter - Kellen Lin RN - 10/27/2024 2:34 PM EST ----- Message from Layne Guzman sent at 10/27/2024 2:31 PM EST ----- Please let patient know that ultrasound showed a very small possible hernia near the bellybutton onthe right side. I can refer to general surgery given the discomfort she has but as it is very smallI do not know if they will advise any intervention. documented in this encounter Plan of Treatment Upcoming Encounters Date Type Department Care Team (Late st Contact Info) Description 11/14/2024 11:15 AM EST Office Visit [facility] MEDICINE 230 [place] [address] Sarah Verduzco DO 230 [place] [address] 01/25/2025 10:30 AM EDT Office Visit [facility] OPTOMETRY [address] [place] [address] Fantasma, Cindy, OD [address] [place] [address] 02/08/2025 10:00 AM EDT Clinical Support [facility] MEDICINE 230 [place], [place] [phone] Lauryn [place] RN documented as of this encounter Visit Diagnoses Not on filedocumented in this encounter Additional Health Concerns Assessment Noted Time PHQ-9 Depression Total Score: 11 024 10:42 AM EDT documented as of this encounter Care Teams Electrical Systems Designer Relationship Specialty Start Date End Date Sarah Verduzco DO 230 [place], [place] [phone] PCP - General Family Medicine 11/21/15 documented as of this encounter
--- OUTSIDE RECORDS SUMMARY | 2024-11-10 16:24 | XMS_ITS | Encounter Summary ---
Author Organization [facility] Address [address] [facility] [place] [address] Care Team Providers Care Panel Cutter Name Role Phone Sheila Eubanks MD Primary Care Provider Unava carley Thapa, Pcp Primary Care Provider Sarah Mckay DO Primary Care Provider Unava ilable Aura Pollock MD Unavailable [phone] Mimi Newsome PA-C Unavailable Kaleb Tripathi PA-C Unavailable [phone] Encounter Details Date Type Department Care Team Description 07/08/2017 Tumbler Drier Operator Report Medical Records [address] [place] [address] [address] Social History Tobacco Use Types Packs/Day Years Used Date Smoking Tobacco: Never Assessed Sex Assigned at Date Recorded Not on file documented as of this encounter Plan of Treatment Not on file documented as of this encounter Visit Diagnoses Not on filedocumented in this encounter Care Teams Panel Cutter Relationship Specialty Start Date End Date Sheila Eubanks MD PCP - General Internal Medicine 05/28/17 01/21/18 Babar Thapa PCP - General Internal Medicine 01/22/18 02/08/18 Sarah Verduzco DO PCP - General Internal Medicine 02/09/18 Aura Pollock MD [address] [address] Surgeon Neurosurgery 12/09/21 Mimi Newsome PA-C [address] [address] Specialist Neurosurgery 12/09/21 Kaleb Tripathi PA-C [address] [address] Specialist Neurosurgery 12/09/21 documented as of this encounter
--- OUTSIDE RECORDS SUMMARY | 2024-11-10 16:24 | XMS_ITS | Encounter Summary ---
Author Organization [employer] Address 75 [facility] 7t [place] [address] Care Team Providers Care Nurse Ob Name Role Phone Sarah Verduzco DO Primary Care Provider + [phone] Reason for Visit * Reason Comments Med Refill Encounter Details Date Type Department Care Team ([facility] Contact Info) Description 08/21/2024 Refill [facility] MEDICINE [address] [place], [place] [phone] Sarah Verduzco DO 230 [place], [place] [phone] Social History Tobacco Use Types Packs/Day Years [...] Description 11/14/2024 11:15 AM EST Office Visit [facility] MEDICINE [address] [place] [address] Sarah Verduzco DO 230 [place] [address] 01/25/2025 10:30 AM EDT Office Visit [facility] OPTOMETRY [address] [place] [address] Cindy Meek, OD 230 [place] [address] 02/08/2025 10:00 AM EDT Clinical Support [facility] MEDICINE [address] [place] [address] Lauryn Cunningham, LUISIOT documented as of this encounter Visit Diagnoses Not on filedocumented in this encounter Additional Health Concerns Assessment Noted Time PHQ-9 Depression Total Score: 11 024 10:42 AM EDT documented as of this encounter Care Teams Nurse Ob Relationship Specialty Start Date End Date Sarah Verduzco DO 230 [place] [address] PCP - General Family Medicine 11/21/15 documented as of this encounter
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
--- OUTSIDE RECORDS SUMMARY | 2024-11-10 16:24 | XMS_ITS | Encounter Summary ---
Author Organization [employer] Address 75 [facility] 7t [place] [address] Care Team Providers Care Cloth Bleaching Range Operator Chief Name Role Phone Sarah Verduzco DO Primary Care Provider [phone] Reason for Visit * Reason Onset Date Comments Nurse Triage 04/20/2023 Encounter Details Date Type Department Care Team ([facility] st Contact Info) Description 04/20/2023 Telephone [facility] MEDICINE 230 [place], [place] [phone] Sarah Verduzco DO [address] [place], [place] [phone] Nurse Triage Social History Tobacco Use Types [...] still has not received a call from MRI to book appt. Pt. Also has Fibromyalgia [...] Description 11/14/2024 11:15 AM EST Office Visit [facility] MEDICINE 230 [place], [place] [phone] Sarah Verduzco DO [address] [place] [address] 01/25/2025 10:30 AM EDT Office Visit [facility] OPTOMETRY [address] [place] [address] Cindy Meek, ALBINA 230 [place] [address] 02/08/2025 10:00 AM EDT Clinical Support [facility] MEDICINE 230 [place] [address] Lauryn [place], RN documented as of this encounter Visit Diagnoses Not on filedocumented in this encounter Additional Health Concerns Assessment Noted Time PHQ-9 Depression Total Score: 16 023 10:36 AM EDT documented as of this encounter Care Teams Cloth Bleaching Range Operator Chief Relationship Specialty Start Date End Date [place] [address] PCP - General Family Medicine 11/21/15 documented as of this encounter
--- OUTSIDE RECORDS SUMMARY | 2024-11-10 16:24 | XMS_ITS | Encounter Summary ---
Author Organization [employer] Address 75 [facility] 7t [place] [address] Care Team Providers Care Palletizer Name Role Phone Sarah Verduzco DO Primary Care Provider [phone] Reason for Visit * Reason Onset Date Comments Medication Question 03/24/2023 Encounter Details Date Type Department Care Team ([facility] Contact Info) Description 03/24/2023 Telephone [facility] MEDICINE 230 [place], [place] [phone] Sarah Verduzco DO [address] [place], [place] [phone] Medication Question Social History Tobacco Use Types [...] used to receive. Please contact pt at [phone] documented in this encounter Plan of Treatment Upcoming Encounters Date Type Department Care Team (Late st Contact Info) Description 11/14/2024 11:15 AM EST Office Visit [facility] MEDICINE [address] [place] [address] Sarah Verduzco DO [address] [place] [address] 01/25/2025 10:30 AM EDT Office Visit [facility] OPTOMETRY [address] [place] [address] Cindy Meek, OD 230 [place] [address] 02/08/2025 10:00 AM EDT Clinical Support [facility] MEDICINE [address] [place] [address] Lauryn [place], LUISITO documented as of this encounter Visit Diagnoses Not on filedocumented in this encounter Additional Health Concerns Assessment Noted Time PHQ-9 Depression Total Score: 16 023 10:36 AM EDT documented as of this encounter Care Teams Palletizer Relationship Specialty Start Date End Date Sarah Verduzco DO [address] [place] [address] PCP - General Family Medicine 11/21/15 documented as of this encounter
--- OUTSIDE RECORDS SUMMARY | 2024-11-10 16:24 | XMS_ITS | Encounter Summary ---
Author Organization [employer] Address 75 [facility] 7t [place] [address] Care Team Providers Care Business Info Consultant Name Role Phone Sarah Verduzco DO Primary Care Provider + [phone] Reason for Visit * Reason Onset Date Comments Appointment Request 04/04/2024 Encounter Details Date Type Department Care Team ([facility] Contact Info) Description 04/04/2024 Telephone [facility] MEDICINE 230 [place], [place] [phone] Sarah Verduzco DO 230 [place], [place] [phone] Appointment Request Social History Tobacco Use Types [...] management appt 04/05. Please contact pt at [phone]. documented in this encounter Plan of Treatment Upcoming Encounters Date Type Department Care Team (Late st Contact Info) Description 11/14/2024 11:15 AM EST Office Visit [facility] MEDICINE [address] [place] [address] Sarah Verduzco DO 230 [place] [address] 01/25/2025 10:30 AM EDT Office Visit [facility] OPTOMETRY [address] [place] [address] Fantasma, Cindy, OD 230 [place] [address] 02/08/2025 10:00 AM EDT Clinical Support [facility] MEDICINE [address] [place] [address] Lauryn [place], LUISITO documented as of this encounter Visit Diagnoses Not on filedocumented in this encounter Additional Health Concerns Assessment Noted Time PHQ-9 Depression Total Score: 24 023 8:54 AM EDT documented as of this encounter Care Teams Business Info Consultant Relationship Specialty Start Date End Date Sarah Verduzco DO 230 [place] [address] PCP - General Family Medicine 11/21/15 documented as of this encounter
--- OUTSIDE RECORDS SUMMARY | 2024-11-10 16:24 | XMS_ITS | Encounter Summary ---
Author Organization [employer] Address 75 [facility] 7t [place] [address] Care Team Providers Care Die Reamer Name Role Phone Sarah Verduzco DO Primary Care Provider + [phone] Reason for Visit * Reason Onset Date Comments Med Refill 03/20/2023 Encounter Details Date Type Department Care Team (Late st Contact Info) Description 03/20/2023 Telephone [facility] MEDICINE [address] [place], [place] [phone] Sarah Verduzco DO 230 [place], [place] [phone] Med Refill Social History Tobacco Use Types [...] 50 mg tablet to be sent to [facility]/pharmacy #[id number] -[place], [place] - [address] documented in this encounter Plan of Treatment Upcoming Encounters Date Type Department Care Team (Late st Contact Info) Description 11/14/2024 11:15 AM EST Office Visit [facility] MEDICINE [address] [place] [address] Sarah Verduzco DO 230 [place], [place] [phone] 01/25/2025 10:30 AM EDT Office Visit [facility] OPTOMETRY [address] [place], [place] [phone] Cindy Meek, OD 230 [place], [place] [phone] 02/08/2025 10:00 AM EDT Clinical Support [facility] [address] [place] [address] Lauryn Cunningham RN documented as of this encounter Visit Diagnoses Not on filedocumented in this encounter Additional Health Concerns Assessment Noted Time PHQ-9 Depression Total Score: 16 01/27/ 023 10:36 AM EDT documented as of this encounter Care Teams Die Reamer Relationship Specialty Start Date End Date Sarah Verduzco DO 230 [place], [place] [phone] PCP - General Family Medicine 11/21/15 documented as of this encounter
--- OUTSIDE RECORDS SUMMARY | 2024-11-10 16:24 | XMS_ITS | Encounter Summary ---
Author Organization [employer] Address 75 [facility] 7t [place] [address] Care Team Providers Care Burglar Alarm Mechanic Name Role Phone Sarah Verduzco DO Primary Care Provider + [phone] Reason for Visit * Reason Comments Med Refill Encounter Details Date Type Department Care Team ([facility] Contact Info) Description 01/29/2024 Refill [facility] MEDICINE 230 [place], [place] [phone] Sarah Verduzco DO 230 [place], [place] [phone] Social History Tobacco Use Types Packs/Day Years [...] EST Office Visit [facility] MEDICINE [address] [place] [address] Sarah Verduzco DO 230 [place] [address] 01/25/2025 10:30 AM EDT Office Visit [facility] OPTOMETRY [address] [place] [address] Fantasma, Cindy, OD 230 [place] [address] 02/08/2025 10:00 AM EDT Clinical Support [facility] MEDICINE [address] [place] [address] Lauryn [place], RN documented as of this encounter Visit Diagnoses Not on filedocumented in this encounter Additional Health Concerns Assessment Noted Time PHQ-9 Depression Total Score: 24 023 8:54 AM EDT documented as of this encounter Care Teams Burglar Alarm Mechanic Relationship Specialty Start Date End Date Sarah Verduzco DO 230 [place] [address] PCP - General Family Medicine 11/21/15 documented as of this encounter
--- OUTSIDE RECORDS SUMMARY | 2024-11-10 16:24 | XMS_ITS | Data Portability ---
Author Organization [employer] [facility], [place] in - [facility] Address [address] [place] [phone] Care Team Providers Care Pick Pulling Machine Tender Name Role Phone [facility] Referring Provider Assessment Encounter Date Assessment Date Assessment LastModified by Organization Details LastModified Time 03/18/2023 03/18/2023 I provided real -time medical direction via phone for this encounter, and was available for additional phone based assistance as needed. I have reviewed and agree with the Assessment and Plan as documented by the Product Manager. Patient given the opportunity to ask questions. Advised if develops CP/severe SOB/turning blue/uncontrolle d pain in flank/ abd or uncontrolled n/v/d or black/bloody emesis or stool/ AMS/ syncope/ hi fever unresponsive to APAP to call 911- advised close f/u with pcp and urology -verbalized understanding of instructions to the medic [email or web address] Not available 03/18/2023 12:04:35 Plan of Treatment Reminders Order Date Submit Date Provider Last Modified By Organization Details Last Modified Time Details Appointments None recorded. Lab rapid SARS CoV 2 Ag, QL IA, respiratory specimen 2023 024 [employer], [address] [place] [address], [phone], 4 18:19:53 rapid flu (A+B) 2023 024 [employer], [address] [place] [address], [address], 4 18:19:51 culture, urine 2022 023 REINALDO [facility] (Centralized Electronic Ordering - All Locations), Patient Can Go To The Location Of Their Choice, [id number] 3 15:12:44 urinalysis, dipstick 2022 023 [email or web address] 0 [facility], [address] [place], [address], 3 17:08:56 rapid SARS CoV 2 Ag, QL IA, respiratory specimen 2022 023 [email or web address] 0 [facility], [address] [place], [address], 3 12:05:04 rapid flu (A+B) 2022 023 [email or web address] 0 [facility], [address] [place], [address], 3 12:05:04 Referral None recorded. Procedures None recorded. Surgeries None recorded. Imaging None recorded. Medication Orders Valtrex [address] [facility] #[id number], [address] [place], [address], 4 18:10:29 Bactrim DS 800 mg-160 mg tablet 2022 023 [email or web address] 0 Not available 3 11:58:51 Bactrim DS 800 mg-[address] [facility] #[id number], [address] [place], [address], 3 12:01:26 Patient TargetsNo targets recorded. Patient InstructionsNo instructions recorded. Reason for Referral None Reported. Results Created Date Observation Date Name Description Value Unit Range Abnormal Flag Note LastModifiedBy Organization Detail LastModifiedTime 03/18/2003/18/2023 URINE CULTU RE specimen description URINE Not Available [facility] (Centralized Electronic Ordering - All Locations) Patient Can Go To The Location Of Their Choice, [id number] 03/20/2023 15:12:44 03/18/2003/18/2023 URINE CULTU RE special requests NONE Not Available [facility] (Centralized Electronic Ordering - All Locations) Patient Can Go To The Location Of Their Choice, 03/20/2023 15:12:44 03/18/2003/20/2023 URINE CULTU RE culture abnormal >100, 000 COL/M L ESCHE MOISES A COLI This isola te was ident ified using Maldi -TOF syste m These AST resul ts were perfo rmed on the Micro scan ID and AST syste m Not Available [facility] (Centralized Electronic Ordering - All Locations) Patient Can Go To The Location Of Their Choice, 03/20/2023 15:12:44 03/18/2003/20/2023 URINE CULTU RE report status FINAL 2022 Not Available [facility] (Centralized Electronic Ordering - All Locations) Patient Can Go To The Location Of Their Choice, 03/20/2023 15:12:44 03/18/2003/20/2023 URINE CULTU RE organism ORGAN ISM >100, 000 COL/M L ESCHE MOISES A COLI This isola te was ident ified using Maldi -TOF syste m These AST resul ts were perfo rmed on the Micro scan ID and AST syste m Not Available [facility] (Centralized Electronic Ordering - All Locations) Patient Can Go To The Location Of Their Choice, 03/20/2023 15:12:44 03/18/2003/20/2023 URINE CULTU RE method METHOD MIN. INHIB. CONC. (MCG/M L) Not Available [facility] (Centralized Electronic Ordering - All Locations) Patient Can Go To The Location Of Their Choice, 03/20/2023 15:12:44 03/18/2003/20/2023 URINE CULTU RE amoxicillin/ clavulanic acid AMOXIC ILLIN/ CLAVUL AN SUSCEP TIBLE susceptib le Not Available [facility] (Centralized Electronic Ordering - All Locations) Patient Can Go To The Location Of Their Choice, 03/20/2023 15:12:44 03/18/20 23 03/20/2023 URINE CULTU RE ampicillin AMPICI LLIN SUSCEP TIBLE susceptib le Not Available [facility] (Centralized Electronic Ordering - All Locations) Patient Can Go To The Location Of Their Choice, 03/20/2023 15:12:44 03/18/20 23 03/20/2023 URINE CULTU RE ampicillin/s ulbactam AMPICI LLIN/S ULBACT AM SUSCEP TIBLE susceptib le Not Available [facility] (Centralized Electronic Ordering - All Locations) Patient Can Go To The Location Of Their Choice, 03/20/2023 15:12:44 03/18/20 23 03/20/2023 URINE CULTU RE cefazolin CEFAZO RAQUEL SUSCEP TIBLE susceptib le Not Available [facility] (Centralized Electronic Ordering - All Locations) Patient Can Go To The Location Of Their Choice, 03/20/2023 15:12:44 03/18/20 23 03/20/2023 URINE CULTU RE cefepime CEFEPI ME SUSCEP TIBLE susceptib le Not Available [facility] (Centralized Electronic Ordering - All Locations) Patient Can Go To The Location Of Their Choice, 03/20/2023 15:12:44 03/18/2003/20/2023 URINE CULTU RE ceftriaxone CEFTRI AXONE SUSCEP TIBLE susceptib le Not Available [facility] (Centralized Electronic Ordering - All Locations) Patient Can Go To The Location Of Their Choice, 03/20/2023 15:12:44 03/18/20 23 03/20/2023 URINE CULTU RE ciprofloxaci n CIPROF LOXACI N SUSCEP TIBLE susceptib le Not Available [facility] (Centralized Electronic Ordering - All Locations) Patient Can Go To The Location Of Their Choice, 03/20/2023 15:12:44 03/18/2003/20/2023 URINE CULTU RE ertapenem ERTAPE NEM SUSCEP TIBLE susceptib le Not Available [facility] (Centralized Electronic Ordering - All Locations) Patient Can Go To The Location Of Their Choice, 03/20/2023 15:12:44 03/18/2003/20/2023 URINE CULTU RE gentamicin GENTAM ICIN SUSCEP TIBLE susceptib le Not Available [facility] (Centralized Electronic Ordering - All Locations) Patient Can Go To The Location Of Their Choice, 03/20/2023 15:12:44 03/18/20 23 03/20/2023 URINE CULTU RE levofloxacin LEVOFL OXACIN SUSCEP TIBLE susceptib le Not Available [facility] (Centralized Electronic Ordering - All Locations) Patient Can Go To The Location Of Their Choice, 03/20/2023 15:12:44 03/18/2003/20/2023 URINE CULTU RE meropenem MEROPE NEM SUSCEP TIBLE susceptib le Not Available [facility] (Centralized Electronic Ordering - All Locations) Patient Can Go To The Location Of Their Choice, 03/20/2023 15:12:44 03/18/2003/20/2023 URINE CULTU RE nitrofuranto in NITROF URANTO IN SUSCEP TIBLE susceptib le Not Available [facility] (Centralized Electronic Ordering - All Locations) Patient Can Go To The Location Of Their Choice, 03/20/2023 15:12:44 03/18/2003/20/2023 URINE CULTU RE piperacillin /tazobactam PIPERA CILLIN /TAZOB AC SUSCEP TIBLE susceptib le Not Available [facility] (Centralized Electronic Ordering - All Locations) Patient Can Go To The Location Of Their Choice, 03/20/2023 15:12:44 03/18/2003/20/2023 URINE CULTU RE tetracycline TETRAC YCLINE SUSCEP TIBLE susceptib le Not Available [facility] (Centralized Electronic Ordering - All Locations) Patient Can Go To The Location Of Their Choice, 03/20/2023 15:12:44 03/18/2003/20/2023 URINE CULTU RE trimeth/sulf amethox TRIMET H/SULF AMETHO X SUSCEP TIBLE susceptib le Not Available [facility] (Centralized Electronic Ordering - All Locations) Patient Can Go To The Location Of Their Choice, 03/20/2023 15:12:44 03/18/2003/18/2023 urina lysis , dipst ick Leukocytes 3+ Not Available [facility] [address] [place] [address], [address], 03/18/2023 12:05:18 03/18/20 23 03/18/2023 urina lysis , dipst ick Nitrite negati ve Not Available [facility] [address] [place] [address], [address], 03/18/2023 12:05:18 03/18/20 23 03/18/2023 urina lysis , dipst ick Urobilinogen neg Not Available [facility] [address] [place] [address], [address], 03/18/2023 12:05:18 03/18/20 23 03/18/2023 urina lysis , dipst ick Protein trace Not Available [facility] - [facility] [address], [address], 03/18/2023 12:05:18 03/18/20 23 03/18/2023 urina lysis , dipst ick pH 6 Not Available [facility] - [facility] [address], [address], 03/18/2023 12:05:18 03/18/20 23 03/18/2023 urina lysis , dipst ick Blood 4+ Not Available [facility] - [facility] [address], [address], 03/18/2023 12:05:18 03/18/20 23 03/18/2023 urina lysis , dipst ick Specific [place] 1.025 Not Available [facility] [address] [place] [address], [address], 03/18/2023 12:05:18 03/18/20 23 03/18/2023 urina lysis , dipst ick Ketone neg Not Available [facility] - [facility] [address], [address], 03/18/2023 12:05:18 03/18/20 23 03/18/2023 urina lysis , dipst ick Bilirubin trace Not Available [facility] [address] [place] [address], [address], 03/18/2023 12:05:18 03/18/20 23 03/18/2023 urina lysis , dipst ick Glucose neg Not Available [facility] - [facility] [address], [address], 03/18/2023 12:05:18 03/18/20 23 03/18/2023 urina lysis , dipst ick Appearance clear Not Available [address], [address], 03/18/2023 12:05:18 03/18/20 23 03/18/2023 urina lysis , dipst ick Color light yellow Not Available [facility] ed [address] [place] [address], [address], 03/18/2023 12:05:18 03/18/20 23 03/18/2023 rapid flu (A+B) Flu negati ve Not Available [facility] ed [address] [place] [address], [address], 03/18/2023 12:04:44 03/18/20 23 03/18/2023 rapid SARS CoV 2 Ag, QL IA, respi rator y speci men rapid SARS CoV 2 Ag, QL IA, respiratory specimen negati ve Not Available [address], [address], 03/18/2023 12:04:39 11/03/19 24 11/03/2023 rapid flu (A+B) Flu negati ve Not Available [address], [address], 11/03/2023 18:19:38 11/03/19 24 11/03/2023 rapid SARS CoV 2 Ag, QL IA, respi rator y speci men rapid SARS CoV 2 Ag, QL IA, respiratory specimen negati ve Not Available [facility] ed [address] [place] [address], [address], 11/03/2023 18:19:30 Result Notes None recorded. Medical Equipment None Reported. Allergies Allergen ID Allergen Name Allergen Category Reaction Reaction Severity Criticality Documentation Date Start Date Code Code System Note Provider Name and Address Organization Details Recorded Time 2707 ibuprofen medicatio n Not available Not available Not available 03/18/2023 5640 RxNorm Not Available [facility] - production 4 03:38:20 2706 Iodinated contrast media (substanc e) medicatio n Not available Not available Not available 03/18/2023 23464 2003 SNOMED Kristyn Paredes MD [address] [place] [address],[address], [place], [address] , [facility] RXJAMAAL, DELFINA 3 11:50:26 Medications Name Sig Start Date [...] USE 2 TIMES A WEEK AT BEDTIME, MON/THURS active Not Available Not Available No t [...] Address Organization Details Last Updated DateTime 03/18/2023 52756.53 g Sonal Guthrie [address] [facility],[address], [place], [address], [place] - [employer] 03/18/2023 17:03:15 Date Recorded Heart rate Body height Oxygen saturation Oxygen saturation in Arterial blood by Pulse oximetry Body weight Body temperature Respiratory rate Systolic blood pressure Diastolic blood pressure Provider Name and Address Organization Details Last Updated DateTime 4 67 /min 149.86 cm 96 % 96 % 88874.0 4 g 98.5 [degF] 18 /min 106 [...] SNOMED-CT Code Diagnosis ICD10 Code Diagnosis Note 84701 Kristyn Paredes MD [facility] [address] [place] [phone] 03/18/2023 11:44:55 03/19/2023 10:13:17 Viral upper respiratory tract infection 570531162 J06.9 Advised if has eye s/s - redness/ d/c or visual changes pls call ophthalmol ogy eliazar/ continue claritin and fluticason e daily- Urinary symptoms [id number] R39.9 has recurrent UTI but other [...] 2 x per day. GAEL FIELDS MD [facility] [address] [place] [phone] 11/03/2023 18:02:26 11/04/2023 12:39:09 Herpes labialis 1351623 B00.1 Evaluation in the field was performed by my garbage pick up worker colleague, as noted above, I provided real-time [...] M[employer]ollum Member ID Guarantor Name 03/18/2023 1 [facility] - DOS ON OR AFTER 2022 - DUAL ELIGIBLE - HALF-WAY OPTIONS AND ONE CARE (MEDICARE REPLACEMENT/ADV ANTAGE - HMO) Miryam Fan [id number] Miryam Fan 11/03/2023 1 [facility] - DOS ON OR AFTER 2022 - DUAL ELIGIBLE - HALF-WAY OPTIONS AND ONE CARE (MEDICARE REPLACEMENT/ADV ANTAGE - HMO) Miryam Fan [id number] Miryam Fan Notes Date Note Type Note [...] .................. .................. .................. .................. .................. .................. ............... Product Manager Note From Courtney Gomez: Community Product Manager Damaso Gomez CCA1 dispatched to a [facility] for a 57 yof C/O sinus [...] urine appeared abnormal. Urine dip in [facility] consulted; pt was given 800 mg bactrim PO, and urine sample was brought to [facility] laboratory for culture. She was instructed [...] was given ( no prior visits in [place] ) but has had bactrim in the past without problems. She reports Temp 101 this am took 1 gram Tylenol- no afebrile Kristyn Paredes MD [address] [facility],[address], [place], [address], [facility] 03/18/2023 17:09:19 11/03/2023 text/html HPI: Hx GERD, Anxiety, cervical deg. disc disease. .................. .................. .................. .................. .................. .................. .................. ............... [facility] Nurse Triage Notes (Fiona Nieves): Comments: HPI reviewed. No additional information needed to process .................. .................. .................. .................. .................. .................. .................. ............... Product Manager Note From Rubi Hoffman: Sent to a [...] covid test: neg; Rapid flu test: neg; [facility] consulted and pt advised it seems lesions are cold sores. [facility] sends script to pt's pharmacy. Pt advised she should drink lots of fluid, take Tylenol for pain, and pt should start seeing improvement in 48hrs. Red flags discussed. Pt has no further questions. .................. .................. .................. .................. .................. .................. .................. ............... Disposition: Fulfilled GAEL FIELDS MD [address] [place] [address],[address] [facility], [place], [address], [employer] 11/03/2023 22:21:59 OBGyn Episode No OBEpisode recorded.
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
--- OUTSIDE RECORDS SUMMARY | 2024-11-10 16:24 | XMS_ITS | Encounter Summary ---
Author Organization [facility] [facility] Address [address] [facility] [address] [place] [address] Care Team Providers Care Mercerizing Range Controller Name Role Phone Sarah Verduzco DO Primary Care Provider + [phone] Reason for Visit * Reason Comments Med Refill Encounter Details Date Type Department Care Team (Late st Contact Info) Description 12/04/[address] [facility] MED[facility]INE [address] [place] [address] Sarah Verduzco DO [address] [place] [address] Social History Tobacco Use Types Packs/Day Years [...] Description 11/14/2024 11:15 AM EST Office Visit [facility] MED[facility] [address] [place] [address] Sarah Verduzco DO [address] [place] [address] 01/25/2025 10:30 AM EDT Office Visit [facility] OPTOMETRY [address] [place] [address] FantasmaCindy sanchez, OD [address] [place] [address] 02/08/2025 10:00 AM EDT Clinical Support [facility] MEDICINE [address] [place], [place] [phone] Lauryn Cunningham, LUISITO documented as of this encounter Visit Diagnoses Not on filedocumented in this encounter Care Teams Mercerizing Range Controller Relationship Specialty Start Date End Date Sarah Verduzco DO [address] [place] [address] PCP - General Family Medicine 11/21/15 documented as of this encounter
--- OUTSIDE RECORDS SUMMARY | 2024-11-10 16:24 | XMS_ITS | Encounter Summary ---
Author Organization [employer] Address [address] [facility] 7t [place] [address] Care Team Providers Care Temporary Staff Accountant Name Role Phone Sarah Verduzco DO Primary Care Provider + [phone] Reason for Visit * Reason Onset Date Comments Appointment Request 08/22/2024 Encounter Details Date Type Department Care Team ([facility] Contact Info) Description 08/22/2024 Telephone [facility] MED[facility]INE [address] [place], [place] [phone] Sarah Verduzco DO [address] [place], [place] [phone] Appointment Request Social History Tobacco Use Types [...] DME RX Contact: Jerry, On behalf of [facility]'s Care Management staff [facility], we are requesting Durable Medical Equipment (DME) for the pt .I can facilitate the ordering process through our approved vendor (such as [employer], [employer], etc.), but a prescription for the DME item(s) is needed. The DME item(s)requested are - Shower chair - Cane Kindly send the prescriptions to ( ) for processing the DME referral on behalf of the patient. Please also provide the patient's current Height and Weight. Should you have any inquiries regarding this request, feel free to contact me [phone]. Thank you for your assistance in this matter. * Telephone Encounter - Priya Fritz RN - 09/01/2024 10:02 AM EST ----- Message from Lisa Kenny sent at 08/31/2024 3:20 PM EST ----- Regarding: DME RX Contact: Jerry, On behalf of [facility]'s Care Management staff [facility], we are requesting Durable Medical Equipment (DME) for the pt .I can facilitate the ordering process through our approved vendor (such as [employer], [employer], etc.), but a prescription for the DME item(s) is needed. The DME item(s)requested are - Shower chair - Cane Kindly send the prescriptions to ([email or web address]) for processing the DME referral on behalf of the patient. Please also provide the patient's current Height and Weight. Should you have any inquiries regarding this request, feel free to contact me [phone]. Thank you for your assistance in this matter. * Telephone Encounter - Thuy Nails - 08/22/2024 11:20 AM EST Tc from pt requesting to r/s pain management appointment from 08/23. Contact pt at [phone] documented in this encounter Plan of Treatment Upcoming Encounters Date Type Department Care Team (Late st Contact Info) Description 11/14/2024 11:15 AM EST Office Visit [facility] MED[facility]INE [address] [place], [place] [phone] Sarah Verduzco DO [address] [place] [address] 01/25/2025 10:30 AM EDT Office Visit [facility] OPTOMETRY [address] [place], [place] [phone] Cindy Meek, ALBINA [address] [place] [address] 02/08/2025 10:00 AM EDT Clinical Support [facility] [address] [place] [address] Lauryn Cunningham, LUISITO documented as of this encounter Visit Diagnoses Not on filedocumented in this encounter Additional Health Concerns Assessment Noted Time PHQ-9 Depression Total Score: 11 024 10:42 AM EDT documented as of this encounter Care Teams Temporary Staff Accountant Relationship Specialty Start Date End Date Sarah Verduzco DO [address] [place] [address] PCP - General Family Medicine 11/21/15 documented as of this encounter
== END 2024-11-10 14:13 | disposition home or self-care (01) ==
PROVIDERS: PCP Family Medicine; Visit Provider Surgery
DX: K43.2 Incisional hernia without obstruction or gangrene (principal)
CPT/HCPCS: 99204

== ENCOUNTER → 2024-11-10 13:39 | Outpatient (BNVA) | payer OTHER, SELFPAY | PROVIDERS: PCP Family Medicine; Visit Provider Surgery | DX: K43.2 Incisional hernia without obstruction or gangrene (principal) | CPT/HCPCS: 99202 ==

== ENCOUNTER 2024-12-29 08:05 | Outpatient (REF) | payer OTHER, SELFPAY ==
--- NOTE | ~2024-12-29 | CT_ITS ---
CLINICAL HISTORY: K43.2 - Incisional hernia without obstruction or gangrene --- Additional Notes or S pecial Instructions: Right lower quadrant abdominal pain, hernia possibly noted by ultrasound CT pelvis without contrast Comparison: None Findings: Pelvic contents unremarkable. Normal appendix. There is no focal abdominal wall defect or hernia. No acute fracture. IMPRESSION: No acute findings. This document has been electronically signed by: Ilir Trejo MD on 12/30/2024 08:24:13
--- OUTSIDE RECORDS SUMMARY | 2024-12-29 08:12 | XMS_ITS | Clinical Summary ---
Author Organization [facility] Address [address] [facility] [place] [address] Care Team Providers Care Chief Dietitian Name Role Phone Sarah Verduzco DO Primary Care Provider Aura Kramer MD Unavailable [phone] Mimi Newsome PA-C Unavailable Kaleb Tripathi PA-C Unavailable Allergies Active Allergy [...] mouth daily. 0 Active Cholecalciferol (VITAMIN D3) 59839 UNITS Tab Take 1 Tab by mouth [...] infection. 1 Inhaler 5 09/09/2017 Active D3-50 25253 UNITS Cap Take 1 Cap by mouth once a week. 8 Cap 0 07/15/2018 Active Arthritis Pain Relief 650 MG CR tablet TAKE 1 TABLET BY MOUTH EVERY 8 HOURS NEEDED FOR PAIN OR FEVER 0 11/16/2021 Active OEUHBOJIBK-YJBB-XTB FEINE 50-325-40 MG OR TABS (FIORICET, ESGIC) [...] Review of the cervical spine MRI at [facility] dated 02/26/2024 shows a solid arthrodesis at [...] the Breast Aunt Arthritis Father RA, DM [place] Mother cause of Diabetes Sister 1 Thyroid [...] 2016 Covid-19 Vaccine ( season) 2024, 01/04/2021 BMI CHECK/ADVISE 09/14/2024 INFLUENZA (Season Ended) 2025 Care Teams Chief Dietitian Relationship Specialty Start Date End Date Sarah Verduzco DO PCP - General Internal Medicine 02/09/18 Aura Pollock MD [address] [address] Surgeon Neurosurgery 12/09/21 Mimi Newsome PA-C [address] [address] Specialist Neurosurgery 12/09/21 Kaleb Tripathi PA-C [address] [place] [address] [address] [place] [address] Specialist Neurosurgery 12/09/21
--- OUTSIDE RECORDS SUMMARY | 2024-12-29 08:12 | XMS_ITS | Clinical Summary ---
Author Organization [employer] Address [address] [facility] 7t [place] [address] Care Team Providers Care Party Plan Salesperson Name Role Phone DellaSarah mills Primary Care Provider + [phone] Allergies Active Allergy Reactions Criticality Noted Date [...] 2 TIMES A WEEK AT BEDTIME, THU/ 023 Active valACYclovir (Valtrex) 1 g tablet TAKE 2 TABLETS BY MOUTH EVERY 12 HOURS FOR 1 DAY 024 Active gabapentin (Neurontin) 600 MG tablet Take 1 tablet (600 mg) by mouth 3 times daily. 90 tablet 3 Active fluticasone (Flonase) 50 MCG/ACT nasal sprayIndications: Seasonal allergic rhinitis, unspecified trigger SPRAY 2 SPRAYS INTO EACH NOSTRIL EVERY DAY 48 mL 1 024 Active Ketotifen Fumarate (Alaway) 0.035 % solution Administer 1 drop into affected eye(s) if needed in the morning and at bedtime (eye alleriges/itch ing). 10 mL 1 024 Active dicyclomine (Bentyl) 10 MG capsule Take 1 capsule (10 mg) by mouth if needed in the morning, at noon, and at bedtime (abd pain/cramping) . 60 capsule 1 024 2024 Active Diclofenac Sodium 1 % cream Apply 2 g topically if needed in the morning and at bedtime (pain). 120 g 3 024 Active loratadine (Claritin) 10 MG tablet TAKE 1 TABLET BY MOUTH EVERY DAY 90 tablet 1 024 Active Cranberry Juice Powder 425 MG capsule TAKE ONE (1) CAPSULE BY MOUTH TWICE DAILY WITH MEALS Active cholecalciferol (Vitamin D-3) 50 MCG (2000 UT) capsuleIndication s:Vitamin D deficiency Take 1 capsule (50 mcg) by mouth Once per day. 30 capsule 11 024 Active atorvastatin (Lipitor) 40 MG tabletIndications :Other hyperlipidemia Take 1 tablet (40 mg) by mouth Once per day. 30 tablet 11 024 Active baclofen (Lioresal) 10 MG tablet Take 1 tablet (10 mg) by mouth if needed in the morning, at noon, and at bedtime for muscle spasms. 60 tablet 3 024 2024 Active Stool Softener 100 MG capsule TAKE 1 CAPSULE BY MOUTH TWICE A DAY NEEDED 180 capsule 1 025 Active Mometasone Furoate (Asmanex HFA) 100 MCG/ACT aerosol Inhale 1 Act (100 mcg) 2 times daily. 13 g 11 025 Active acetaminophen (Tylenol 8 Hour) 650 MG ER tablet TAKE 1 TABLET BY MOUTH EVERY 8 (EIGHT) HOURS IF NEEDED FOR MILD PAIN. DO NOT CRUSH, CHEW, OR SPLIT. 50 tablet 1 025 Active butalbital-acetam inophen-caffeine 50-325-40 MG tabletIndications :Chronic nonintractable headache, unspecified headache type TAKE 1 TABLET BY MOUTH AT ONSET OF HEADACHE, MAY REPEAT AFTER 4 HOURS NEEDED, MAX 2 TABS PER DAY. 20 tablet 1 025 Active hydroquinone 4 % creamIndications: Melasma APPLY TO THE AFFECTED AREA(S) TWICE DAILY IN THE MORNING AND AT BEDTIME 28.35 g 5 025 Active oxyCODONE-acetami nophen (Percocet) 5-325 MG tabletIndications :Chronic bilateral low back pain with left-sided sciatica Take 1 tablet by mouth every 6 (six) hours if needed for severe pain for up to 28 days. 112 tablet 025 2024 Active calcium carbonate (Tums) 500 MG chewable tablet Chew 2 tablets (1,000 mg) if needed in the morning, at noon, in the evening, and at bedtime for indigestion or heartburn. 60 tablet 2 024 2024 oxyCODONE-acetami nophen (Percocet) 5-325 MG tabletIndications :Chronic bilateral low back pain with left-sided sciatica Take 1 tablet by mouth every 6 (six) hours if needed for severe pain for up to 28 days. Do not start before November 30, 2024. 112 tablet 025 2024 Discontinued(R eorder (will not trigger notification to Pharmacy)) Active Problems Problem Noted Date Diagnosed Date Chronic, continuous use of opioids 07/07/2024 Overview (07/07/2024): Dx: Rx: Last RADIO ENGINEER agreement: Tier II (visit every 3 [...] She request prescription to be send to [facility] pharmacy due to not being covered at [facility]. 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 01/27/2023 Overweight (BMI 25.0-29.9) 11/21/2015 0 01/27/2023 Encounters Date Type Department Care Team Description 2024 Refill [facility] MEDICINE [address] [place] [address] Sarah Verduzco DO Chronic bilateral low back pain with left-sided sciatica 12/06/2024 Refill [facility] MEDICINE [address] [place] [address] Sarah Verduzco DO 11/28/2024 Refill [facility] MEDICINE [address] [place] [address] Sarah Verduzco DO Chronic nonintractable headache, unspecified headache type; Melasma 11/28/2024 Refill [facility] [place] [address] Sarah Verduzco DO Chronic bilateral low back pain with left-sided sciatica 11/22/2024 Refill [facility] [place] [address] Sarah Verduzco DO 11/14/2024 11:15 AM EST Office Visit [facility] [place] [address] Sarah Verduzco DO Major depression, recurrent, chronic (CMS/HCC) (Primary Dx); Other hyperlipidemia; Chronic migraine; Chronic gastroesophageal reflux disease; Multiple pulmonary nodules; Thyroid nodule; Microscopic hematuria; Fibromyalgia; Chronic bilateral low back pain, unspecified whether sciatica present; Chronic neck pain; Mild persistent asthma without complication; Allergic rhinitis, unspecified seasonality, unspecified trigger; Family history of brain aneurysm; Healthcare maintenance 11/14/2024 Travel 11/07/2024 1:30 PM EST Clinical Support [facility] [place] [address] Lauryn Cunningham, stockroom inventory clerk neck pain (Primary Dx) 11/07/2024 Telephone [facility] [place] [address] Lauryn Cunningham, RN RADIO ENGINEER Renewal today 11/07/2024 Travel 11/07/2024 Telephone [facility] [place] [address] Lauryn Cunningham, RN Recommend RADIO ENGINEER Tier 2 10/31/2024 Refill [facility] [place] [address] Sarah Verduzco DO Chronic nonintractable headache, unspecified headache type 10/27/2024 Orders Only [facility] [place] [address] Laurent Tatum ANP Fascial defect (Primary Dx) 10/24/2024 Refill [facility] [place] [address] Sarah Verduzco DO Chronic bilateral low back pain with left-sided sciatica 10/24/2024 Telephone [facility] MEDICINE [address] [place] [address] Sarah Verduzco, Appointment Request 10/22/2024 Refill [facility] MEDICINE [address] [place] [address] Sarah Verduzco, 10/06/2024 Refill [facility] MED[facility]INE [address] [place] [address] Sarah Verduzco, 10/05/2024 Refill [facility] MED[facility]INE [address] [place] [address] Sarah Verduzco, 09/30/2024 Telephone [facility] MEDICINE [address] [place] [address] Lennie Cuenca MA Recall Appt. 09/30/2024 Travel from Last 3 Months Immunizations Name [...] Answer Date Recorded Patient Health Questionnaire-9 Score 20 11/14/2024 Patient Health Questionnaire-9 Score 20 11/14/2024 Last PHQ-9: Questionnaire Data Not on file 0 11/14/2024 Housing Stability Answer Date Recorded What is [...] Date Recorded Patient Health Questionnaire-2 Score 6 11/14/2024 Internet Access Answer Date Recorded Internet Access [...] Sign Reading Time Taken Comments Blood Pressure 132/70 11/14/2024 11:21 AM EST Pulse 75 11/14/2024 11:21 AM EST Temperature 36.2 ??C (97.1 ??F) 11/14/2024 11:[address] Respiratory Rate 20 11/14/2024 11:21 AM EST Oxygen Saturation 100% 11/14/2024 11:21 AM EST Inhaled Oxygen Concentration - - Weight 58.5 kg (129 lb) 11/14/2024 11:21 AM EST Height 149.9 cm (4' 11 ) 11/14/2024 11:21 AM EST Body Mass Index 26.05 11/14/2024 11:21 AM EST Plan of Treatment Upcoming Encounters Date Type Department Care Team (Late st Contact Info) Description 01/25/2025 10:30 AM EDT Office Visit [facility] OPTOMETRY [address] [place] [address] Fantasma, Cindy, OD [address] [place] [address] 02/08/2025 10:00 AM EDT Clinical Support [facility] MEDICINE [address] [place] [address] Lauryn Cunningham, RN Health Maintenance Due Date Last Done Comments CT Colonography 1966 FIT DNA/Cologuard 1966 FIT 1966 FOBT 1966 Sigmoidoscopy 1966 Hepatitis B Vaccines (1 of 3 - 19+ 3-dose series) 1985 Pneumococcal Vaccine: 50+ Years (1 of 2 - PCV) 1985 Zoster Vaccines (1 of 2) 2016 Colonoscopy 03/24/2022 03/24/2017 Colorectal Cancer Screening 03/24/2022 COVID-19 Vaccine (2023- season) 2024 02/01/2021, 01/04/2021 Influenza Vaccine (#1) 2024 Depression Monitoring 05/17/2025 11/14/2024, 025 SDOH Screening 07/22/2025 07/22/2024 Alcohol/Substance Use Screening 11/14/2025 11/14/2024 Depression Screening 11/14/2025 11/14/2024, 11/15/19 25 Tobacco Screening 11/14/2025 11/14/2024 Mammogram 06/22/2026 06/22/2024, 05/16, 06/10/2023, Additional history exists DTaP/Tdap/Td Vaccines (3 - [...] LIMITED Routine 10/27/2024 1:0 1 PM EST BI MAMMOGRAM SCREENING TOMOSYNTHESIS BILATERAL Routine [...] - 11/07/2024 2:06 PM EST UTOX cup Lot#[id number] Exp. 05/03/26 Internal Pass Control us Sarah Verduzco DO POINT OF CARE TEST ENTER/DAVID T ORDERABLES Final Result * US Pelvis Limited (10/27/2024 1:01 PM EST) Anatomical Region Laterality Modality Pelvis Ultrasound 10/27/2024 1:01 PM EST Narrative 10/27/2024 1:01 PM EST ? [facility] ?[address] ?[place] [address] ? Ultrasound Report ? Signed ? Patient: Miryam Fan ?MR#: [id number] ?? 06 ? : 1965 ?Acct:[id number] ? Age/Sex: 58 / F ?ADM Date: 10/27/24 ? Loc: HO.US ? Attending Dr: Laurent Tatum NP ? Ordering Physician: LAURENT TATUM NP ?? Date of Service: 10/27/24 ?? Procedure(s): US pelvic limited ?? Accession Number(s): [id number] ? cc: Sarah Verduzco DO; LAURENT TATUM NP ? CLINICAL HISTORY: ?hernia R lower or [...] DD/ 1301 ? TD/TT: 10/27/24 1301 ? Logistics Program Manager: ? Procedure Note Donotuseinterpreter, Image - 10/27/[address] [address] Ultrasound Report Signed Patient: Marco Fan#: [id number] 06 : 1965Acct:[id number] Age/Sex: 58 / FADM Date: 10/27/24 Loc: HO.US Attending Dr: Laurent Tatum NP Ordering Physician: LAURENT TATUM NP Date of Service: 10/27/24 Procedure(s): US pelvic limited Accession Number(s): [id number] cc: Sarah Verduzco DO; LAURENT TATUM NP [...] 10/27/24 1301 DD/ 1301 TD/TT: 10/27/24 1301 Logistics Program Manager: us Laurent Tatum ANP IMG US PROCEDURES Edited Result - Final * BI Mammogram Screening Tomosynthesis Bilateral (06/22/2024 9:45 AM EDT) Anatomical Region Laterality Modality Breast Bilateral Mammography 06/22/2024 9:45 AM EDT Narrative 07/04/2024 6:01 PM EDT ? [facility] ? [address] ?[place] [address] ? Mammography Report ? Signed ? Patient: Fan,Miryam ?MR#: [id number] ?? 06 ? : 1965 ?Acct:[id number] ? Age/Sex: 58 / F ?ADM Date: 10/09/24 ? Loc: HO.MAMMO ? Attending Dr: Sarah Verduzco DO ? Ordering Physician: Sarah Verduzco DO ?Results: 1N ?? egative ? Date of Service: 06/22/24 ?Follow Up: 1 Year From Orig ?? inal Mammogram ? Procedure(s): MM tomosynthesis screening BI ?? Accession Number(s): [id number] ? cc: Sarah Verduzco DO ? EXAMINATION: [...] in OV> ? 07/04/24 175 ? DD/ 4 ? TD/TT: 06/22/24[address] ? Logistics Program Manager: ? Procedure Note Donsandyter, Image - 07/04/2024 [facility] [address] [place] [address] Mammography Report Signed Patient: Miryam FanMR#: [id number] 06 : 1965Acct:[id number] Age/Sex: 58 / FADM Date: 06/22/24 Loc: HO.MAMMO Attending Dr: Sarah Verduzco DO Ordering Physician: Sarah Verduzcoults: 1N egative Date of Service: 06/22/24Follow Up: 1 Year From Orig inal Mammogram Procedure(s): MM tomosynthesis screening BI Accession Number(s): [id number] cc: Sarah Verduzco DO EXAMINATION: MM SCREENING [...] 07/04/24 1757 DD/ 0945 TD/TT: 06/22/24 0958 Logistics Program Manager: Sarah Verduzco DO IMG BI PROCEDURES Edited Res ult - Final * Hepatitis C Antibody with Reflex to HCV, RNA, Quantitative, Real-Time PCR (05/04/2024 12:27 PM EDT) Hepatitis C Antibody Nonreactive Nonreactive [facility] Comment:Antibodies to HCV no t detected; does not exclude early acuteHCV infection. Blood Venous blood specimen / Unknown 05/04/2024 12:27 PM EDT 05/04/2024 1:01 PM EDT Sarah Verduzco DO LAB BLOOD ORDERABLES Final R esult [facility] [address] [place] [phone] * HIV-1/2 Antigen and Antibodies, Fourth Generation, with Reflexes (05/04/2024 12:27 PM EDT) HIV AB/AG Nonreactive Nonreactive [facility] Comment:HIV-1 p24 Ag and/or HIV-1/HIV-2 Ab not detected.A test result that is nonreactive does not exclude thepossibility of exposure to or infection with HIV-1 and/orHIV-2. Nonreactive results in this assay for individualswith prior exposure to HIV-1 and/or HIV-2 may be due toantigen and antibody levels that are below the limit ofdetection of this assay.The Cell[employer] HIV Ag/Ab Combo assay result andsupplemental assay results should be interpreted inconjunction with the patient's clinical presentation,history and other laboratory results. If the results areinconsistent with clinical evidence, additional testing issuggested to confirm the result. Blood Venous blood specimen / Unknown 05/04/2024 12:27 PM EDT 05/04/2024 1:01 PM EDT Sarah Verduzco DO LAB BLOOD ORDERABLES Final R esult [facility] [address] [place] [address] [phone] * Hm Colonoscopy (03/24/2017 8:58 AM EDT) us Historical Provider HEALTH MAINTENANCE Final Result from Last 3 Months or Most Recently Relevant to Health Maintenance Insurance [facility] Care Teams Party Plan Salesperson Relationship Specialty Start Date End Date Sarah Verduzco DO [address] [place] [address] PCP - General Family Medicine 11/21/15
--- OUTSIDE RECORDS SUMMARY | 2024-12-29 08:12 | XMS_ITS | Encounter Summary ---
Author Organization [employer] Address [address] [facility] 7t [place] [address] Care Team Providers Care Juice Scaleman Name Role Phone Sarah Verduzco DO Primary Care Provider + [phone] Reason for Visit * Reason Comments Med Refill Encounter Details Date Type Department Care Team ([facility] Contact Info) Description 08/20/2023 Refill [facility] MED[facility] [address] [place], [place] [phone] Sarah Verduzco DO [address] [place] [address] Chronic neck pain Social History Tobacco Use [...] 08/31/2023 11:48 AM EST Referral faxed for MARINE SERVICE MANAGER services to , per provider request. documented in this encounter Plan of Treatment Upcoming Encounters Date Type Department Care Team (Late st Contact Info) Description 01/25/2025 10:30 AM EDT Office Visit [facility] OPTOMETRY [address] [place] [address] Fantasma, Cindy, OD [address] [place] [address] 02/08/2025 10:00 AM EDT Clinical Support [facility] MEDICINE [address] [place] [address] Lauryn Cunningham, RN documented as of this encounter Visit Diagnoses Diagnosis Chronic neck pain Cervicalgia documented in this encounter Additional Health Concerns Assessment Noted Time PHQ-9 Depression Total Score: 24 023 8:54 AM EDT documented as of this encounter Care Teams Juice Scaleman Relationship Specialty Start Date End Date Sarah Verduzco DO [address] [place] [address] PCP - General Family Medicine 11/21/15 documented as of this encounter
--- OUTSIDE RECORDS SUMMARY | 2024-12-29 08:12 | XMS_ITS | Encounter Summary ---
Author Organization [facility] Address [address] [facility] 7t [place] [address] Care Team Providers Care Match Marker Name Role Phone Sarah Verduzco DO Primary Care Provider + [phone] Reason for Visit * Reason Comments Med Refill Encounter Details Date Type Department Care Team ([facility] Contact Info) Description 12/19/2022 Refill [facility] MEDICINE [address] [place] [address] Sarah Verduzco DO [address] [place] [address] Social History Tobacco Use Types Packs/Day Years [...] Department Care Team (Late Contact Info) Description 01/25/2025 10:30 AM EDT Office Visit [facility] OPTOMETRY [address] [place], [place] [phone] Cindy Meek, OD [address] [place] [address] 02/08/2025 10:00 AM EDT Clinical Support [facility] MEDICINE [address] [place] [address] Lauryn Cunningham RN documented as of this encounter Visit Diagnoses Not on filedocumented in this encounter Care Teams Match Marker Relationship Specialty Start Date End Date Sarah Verduzco DO [address] [place] [address] PCP - General Family Medicine 11/21/15 documented as of this encounter
--- OUTSIDE RECORDS SUMMARY | 2024-12-29 08:12 | XMS_ITS | Encounter Summary ---
Author Organization [employer] Address [address] [facility] [address]t [place] [address] Care Team Providers Care Avionics Systems Integration Specialist Name Role Phone Sarah Verduzco DO Primary Care Provider + [phone] Reason for Visit * Reason Onset Date Comments Med Refill 10/20/2022 Encounter Details Date Type Department Care Team ([facility] st Contact Info) Description 10/20/2022 Telephone [facility] MEDICINE [address] [place], [place] [phone] Sarah Verduzco DO [address] [place], [place] [phone] Med Refill Social History Tobacco Use Types [...] Description 01/25/2025 10:30 AM EDT Office Visit [facility] OPTOMETRY [address] [place] [address] Cindy Meek, OD [address] [place] [address] 02/08/2025 10:00 AM EDT Clinical Support [facility] MEDICINE [address] [place] [address] Lauryn Cunningham, RN documented as of this encounter Visit Diagnoses Not on filedocumented in this encounter Care Teams Avionics Systems Integration Specialist Relationship Specialty Start Date End Date Sarah Verduzco DO [address] [place] [address] PCP - General Family Medicine 11/21/15 documented as of this encounter
--- OUTSIDE RECORDS SUMMARY | 2024-12-29 08:12 | XMS_ITS | Encounter Summary ---
Author Organization [facility] Address [address] [facility] [place] [address] Care Team Providers Care Gear Nicker Name Role Phone Sarah Verduzco DO Primary Care Provider Aura Kramer MD Unavailable [phone] Mimi Newsome PA-C Unavailable [phone] Kaleb Tripathi PA-C Unavailable Encounter Details Date Type Department Care Team Description 08/13/2018 Refill Gastroenterology - [place] [address] [id number] Donita Lorenzo DScPAS Social History Tobacco Use Types Packs/Day Years Used Date Smoking Tobacco: Former Smokeless Tobacco: Never Sex Assigned at Date Recorded Not on file documented as of this encounter Plan of Treatment Not on file documented as of this encounter Visit Diagnoses Not on filedocumented in this encounter Care Teams Gear Nicker Relationship Specialty Start Date End Date Sarah Verduzco DO PCP - General Internal Medicine 02/09/18 Aura Pollock MD [address] [address] Surgeon Neurosurgery 12/09/21 Mimi Newsome PA-C [address] [address] Specialist Neurosurgery 12/09/21 Kaleb Tripathi PA-C [address] [address] Specialist Neurosurgery 12/09/21 documented as of this encounter
--- OUTSIDE RECORDS SUMMARY | 2024-12-29 08:12 | XMS_ITS | Encounter Summary ---
Author Organization [facility] Address [address] [facility] 7t [place] [address] Care Team Providers Care Research Leader Name Role Phone Sarah Verduzco DO Primary Care Provider + [phone] Encounter Details Date Type Department Care Team (Late Contact Info) Description 12/24/2022 Orders Only [facility] MEDICINE [address] [place] [address] Sarah Verduzco DO 230 [place] [address] Social History Tobacco Use Types Packs/Day Years [...] Description 01/25/2025 10:30 AM EDT Office Visit [facility] OPTOMETRY [address] [place] [address] Cindy Meek, OD 230 [place] [address] 02/08/2025 10:00 AM EDT Clinical Support [facility] MEDICINE 230 [place] [address] Lauryn Cunningham RN documented as of this encounter Visit Diagnoses Not on filedocumented in this encounter Care Teams Research Leader Relationship Specialty Start Date End Date Sarah Verduzco DO 230 [place] [address] PCP - General Family Medicine 11/21/15 documented as of this encounter
--- OUTSIDE RECORDS SUMMARY | 2024-12-29 08:12 | XMS_ITS | Encounter Summary ---
Author Organization [employer] Address [address] [facility] 7t [place] [address] Care Team Providers Care Dead Mail Checker Name Role Phone Sarah Verduzco DO Primary Care Provider + [phone] Encounter Details Date Type Department Care Team ([facility] st Contact Info) Description 07/27/2023 Telephone [facility] MEDICINE 230 [place], [place] [phone] Sarah Verduzco DO 230 [place], [place] [phone] Social History Tobacco Use Types Packs/Day Years [...] Description 01/25/2025 10:30 AM EDT Office Visit [facility] OPTOMETRY [address] [place], [place] [phone] Cindy Meek, OD 230 [place] [address] 02/08/2025 10:00 AM EDT Clinical Support [facility] MEDICINE 230 [place] [address] Lauryn Cunningham, LUISITO documented as of this encounter Visit Diagnoses Not on filedocumented in this encounter Additional Health Concerns Assessment Noted Time PHQ-9 Depression Total Score: 24 023 8:54 AM EDT documented as of this encounter Care Teams Dead Mail Checker Relationship Specialty Start Date End Date Sarah Verduzco DO 230 [place] [address] PCP - General Family Medicine 11/21/15 documented as of this encounter
--- OUTSIDE RECORDS SUMMARY | 2024-12-29 08:12 | XMS_ITS | Encounter Summary ---
Author Organization [employer] Address [address] [facility] 7t [place] [address] Care Team Providers Care Station Operator Name Role Phone Sarah Verduzco DO Primary Care Provider + [phone] Reason for Visit * Reason Comments Med Refill Encounter Details Date Type Department Care Team ([facility] Contact Info) Description 09/08/2023 Refill [facility] MEDICINE 230 [place], [place] [phone] Sarah Verduzco DO 230 [place] [address] Social History Tobacco Use Types Packs/Day Years [...] Description 01/25/2025 10:30 AM EDT Office Visit [facility] OPTOMETRY [address] [place], [place] [phone] Fantasma, Cindy, OD 230 [place] [address] 02/08/2025 10:00 AM EDT Clinical Support [facility] MEDICINE 230 [place] [address] Lauryn Cunningham, LUISITO documented as of this encounter Visit Diagnoses Not on filedocumented in this encounter Additional Health Concerns Assessment Noted Time PHQ-9 Depression Total Score: 24 023 8:54 AM EDT documented as of this encounter Care Teams Station Operator Relationship Specialty Start Date End Date Sarah Verduzco DO 230 [place] [address] PCP - General Family Medicine 11/21/15 documented as of this encounter
--- OUTSIDE RECORDS SUMMARY | 2024-12-29 08:12 | XMS_ITS | Encounter Summary ---
Author Organization [employer] Address [address] [facility] 7t [place] [address] Care Team Providers Care Gas Pipe Layer Name Role Phone Sarah Verduzco Primary Care Provider + [phone] Reason for Visit * Reason Comments Med Refill Encounter Details Date Type Department Care Team (Late Contact Info) Description 10/21/2022 Refill [facility] MEDICINE 230 [place] [address] Елена Olson MD 230 [place] [address] Sinusitis, unspecified chronicity, unspecified location Social History [...] Description 01/25/2025 10:30 AM EDT Office Visit [facility] OPTOMETRY 267 [place] [address] Cindy Meek, OD 230 [place] [address] 02/08/2025 10:00 AM EDT Clinical Support [facility] MEDICINE 230 [place] [address] Lauryn Cunningham RN documented as of this encounter Visit Diagnoses Diagnosis Sinusitis, unspecified chronicity, unspecified location documented in this encounter Care Teams Gas Pipe Layer Relationship Specialty Start Date End Date Sarah Verduzco DO 230 [place] [address] PCP - General Family Medicine 11/21/15 documented as of this encounter
--- OUTSIDE RECORDS SUMMARY | 2024-12-29 08:12 | XMS_ITS | Encounter Summary ---
Author Organization [facility] Address [address] [place] [address] Care Team Providers Care Alum Mixer Name Role Phone Sarah Verduzco DO Primary Care Provider Aura Kramer MD Unavailable [phone] Mimi Newsome PA-C Unavailable [phone] Kaleb Tripathi PA-C Unavailable [phone] Encounter Details Date Type Department Care Team Description 09/08/2018 Refill Internal Medicine - [place] 175 [facility], [address] [place] [address] Sheila Eubanks MD Social History Tobacco Use [...] on filedocumented in this encounter Care Teams Alum Mixer Relationship Specialty Start Date End Date Sarah Verduzco DO PCP - General Internal Medicine 02/09/18 Aura Pollock MD 175 [facility] [address] [place] [phone] Surgeon Neurosurgery 12/09/21 Mimi Newsome PA-C [address] [phone] Specialist Neurosurgery 12/09/21 Kaleb Tripathi PA-C 175 [facility] [address] [place] [address] [phone] Specialist Neurosurgery 12/09/21 documented as of this encounter
--- OUTSIDE RECORDS SUMMARY | 2024-12-29 08:12 | XMS_ITS | Encounter Summary ---
Author Organization [employer] Address [address] [facility] 7t [place] [address] Care Team Providers Care Nutritional Chemist Name Role Phone Sarah Verduzco DO Primary Care Provider + [phone] Reason for Visit * Reason Comments Med Refill Encounter Details Date Type Department Care Team (Late Contact Info) Description 02/06/2023 Refill [facility] MEDICINE 230 [place], [place] [phone] Sarah Verduzco DO 230 [place] [address] Chronic GERD Social History Tobacco Use Types [...] Upcoming Encounters Date Type Department Care Team ([facility] Contact Info) Description 01/25/2025 10:30 AM EDT Office Visit [facility] OPTOMETRY [address] [place] [address] Cindy Meek, OD 230 [place], [place] [phone] 02/08/2025 10:00 AM EDT Clinical Support [facility] MEDICINE 230 [place], [place] [phone] Lauryn Cunningham RN documented as of this encounter Visit Diagnoses Diagnosis Chronic GERD documented in this encounter Additional Health Concerns Assessment Noted Time PHQ-9 Depression Total Score: 16 023 10:36 AM EDT documented as of this encounter Care Teams Nutritional Chemist Relationship Specialty Start Date End Date Sarah Verduzco DO 230 [place], [place] [phone] PCP - General Family Medicine 11/21/15 documented as of this encounter
--- OUTSIDE RECORDS SUMMARY | 2024-12-29 08:12 | XMS_ITS | Encounter Summary ---
Author Organization [employer] Address [address] [facility] 7t [place] [address] Care Team Providers Care Web Production Artist Name Role Phone Sarah Verduzco DO Primary Care Provider + [phone] Reason for Visit * Reason Onset Date Comments Nurse Triage 07/20/2023 Encounter Details Date Type Department Care Team ([facility] st Contact Info) Description 07/20/2023 Telephone [facility] MEDICINE 230 [place], [place] [phone] Sarah Verduzco DO 230 [place], [place] [phone] Nurse Triage Social History Tobacco Use Types [...] juice Pt agrees. Advised to come to [facility] today to be seen by [...] accepted this outcome Please contact pt at [phone] documented in this encounter Plan of Treatment Upcoming Encounters Date Type Department Care Team (Late st Contact Info) Description 01/25/2025 10:30 AM EDT Office Visit [facility] OPTOMETRY [address] [place] [address] Cindy Meek, OD 230 [place] [address] 02/08/2025 10:00 AM EDT Clinical Support [facility] MEDICINE 230 [place], [place] [phone] Lauryn Cunningham RN documented as of this encounter Visit Diagnoses Not on filedocumented in this encounter Additional Health Concerns Assessment Noted Time PHQ-9 Depression Total Score: 24 023 8:54 AM EDT documented as of this encounter Care Teams Web Production Artist Relationship Specialty Start Date End Date Sarah Verduzco DO 230 [place], [place] [phone] PCP - General Family Medicine 11/21/15 documented as of this encounter
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
--- OUTSIDE RECORDS SUMMARY | 2024-12-29 08:12 | XMS_ITS | Encounter Summary ---
Author Organization [employer] Address [address] [facility] 7t [place] [address] Care Team Providers Care Nursing Staffing Coordinator Name Role Phone Sarah Verduzco DO Primary Care Provider + [phone] Reason for Visit * Reason Comments Med Refill Encounter Details Date Type Department Care Team ([facility] Contact Info) Description 12/06/2024 Refill [facility] MEDICINE 230 [place], [place] [phone] Sarah Verduzco DO 230 [place], [place] [phone] Social History Tobacco Use Types Packs/Day Years [...] Description 01/25/2025 10:30 AM EDT Office Visit [facility] OPTOMETRY [address] [place] [address] Cindy Meek, OD 230 [place] [address] 02/08/2025 10:00 AM EDT Clinical Support [facility] MEDICINE [address] [place] [address] Lauryn Cunningham, LUISITO documented as of this encounter Visit Diagnoses Not on filedocumented in this encounter Additional Health Concerns Assessment Noted Time PHQ-9 Depression Total Score: 20 025 11:28 AM EST documented as of this encounter Care Teams Nursing Staffing Coordinator Relationship Specialty Start Date End Date Sarah Verduzco DO 230 [place] [address] PCP - General Family Medicine 11/21/15 documented as of this encounter
--- OUTSIDE RECORDS SUMMARY | 2024-12-29 08:12 | XMS_ITS | Encounter Summary ---
Author Organization [employer] Address [address] [facility] 7t [place] [address] Care Team Providers Care Pediatric Hospitalist Name Role Phone Sarah Verduzco DO Primary Care Provider + [phone] Reason for Visit * Reason Comments Med Refill Encounter Details Date Type Department Care Team (Late Contact Info) Description 10/21/2022 Telephone [facility] MEDICINE 230 [place], [place] [phone] Sarah Verduzco DO 230 [place] [address] Med Refill Social History Tobacco Use Types [...] Description 01/25/2025 10:30 AM EDT Office Visit [facility] OPTOMETRY [address] [place] [address] Cindy Meek, OD 230 [place] [address] 02/08/2025 10:00 AM EDT Clinical Support [facility] MEDICINE 230 [place], [place] [phone] Lauryn Cunningham, LUISITO documented as of this encounter Visit Diagnoses Not on filedocumented in this encounter Care Teams Pediatric Hospitalist Relationship Specialty Start Date End Date Sarah Verduzco DO 230 [place], [place] [phone] PCP - General Family Medicine 11/21/15 documented as of this encounter
--- OUTSIDE RECORDS SUMMARY | 2024-12-29 08:13 | XMS_ITS | Encounter Summary ---
Author Organization [employer] Address 75 [facility] 7t [place] [address] Care Team Providers Care Loop Puller Name Role Phone Sarah Verduzco DO Primary Care Provider + [phone] Reason for Visit * Reason Onset Date Comments Nurse Triage 11/16/2023 Encounter Details Date Type Department Care Team ([facility] st Contact Info) Description 11/16/2023 Telephone [facility] MEDICINE 230 [place], [place] [phone] Sarah Verduzco DO 230 [place], [place] [phone] Nurse Triage Social History Tobacco Use Types [...] this time. Pt doesn't wantto go to [facility] . Pt agrees with this plan [...] Description 01/25/2025 10:30 AM EDT Office Visit [facility] OPTOMETRY [address] [place], [place] [phone] Cindy Meek, OD 230 [place], [place] [phone] 02/08/2025 10:00 AM EDT Clinical Support [facility] MEDICINE 230 [place], [place] [phone] Lauryn Cunningham RN documented as of this encounter Visit Diagnoses Not on filedocumented in this encounter Additional Health Concerns Assessment Noted Time PHQ-9 Depression Total Score: 24 023 8:54 AM EDT documented as of this encounter Care Teams Loop Puller Relationship Specialty Start Date End Date Sarah Verduzco DO 230 [place], [place] [phone] PCP - General Family Medicine 11/21/15 documented as of this encounter
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
--- OUTSIDE RECORDS SUMMARY | 2024-12-29 08:13 | XMS_ITS | Encounter Summary ---
Author Organization [employer] Address 75 [facility] 7t [place] [address] Care Team Providers Care Real Estate Legal Assistant Name Role Phone Sarah Verduzco DO Primary Care Provider + [phone] Reason for Visit * Reason Comments Med Refill Encounter Details Date Type Department Care Team ([facility] Contact Info) Description 08/21/2024 Refill [facility] MEDICINE 230 [place], [place] [phone] Sarah Verduzco DO 230 [place], [place] [phone] Social History Tobacco Use Types Packs/Day Years [...] 10:30 AM EDT Office Visit [facility] OPTOMETRY [address] [place], [place] [phone] Cindy Meek, OD 230 [place] [address] 02/08/2025 10:00 AM EDT Clinical Support [facility] MEDICINE [address] [place] [address] Lauryn Cunningham, LUISITO documented as of this encounter Visit Diagnoses Not on filedocumented in this encounter Additional Health Concerns Assessment Noted Time PHQ-9 Depression Total Score: 11 024 10:42 AM EDT documented as of this encounter Care Teams Real Estate Legal Assistant Relationship Specialty Start Date End Date Sarah Verduzco DO 230 [place] [address] PCP - General Family Medicine 11/21/15 documented as of this encounter
--- OUTSIDE RECORDS SUMMARY | 2024-12-29 08:13 | XMS_ITS | Encounter Summary ---
Author Organization [facility] Address 75 [facility] 7t [place] [address] Care Team Providers Care Dishwasher Preparer Name Role Phone Sarah Verduzco DO Primary Care Provider + [phone] Reason for Visit * Reason Comments Med Refill Encounter Details Date Type Department Care Team ([facility] Contact Info) Description 12/04/2022 Refill [facility] MEDICINE 230 [place] [address] Sarah Verduzco DO 230 [place] [address] Social History Tobacco Use Types Packs/Day Years [...] Description 01/25/2025 10:30 AM EDT Office Visit [facility] OPTOMETRY [address] [place], [place] [phone] Cindy Meek, OD 230 [place] [address] 02/08/2025 10:00 AM EDT Clinical Support [facility] MEDICINE [address] [place] [address] Lauryn Cunningham RN documented as of this encounter Visit Diagnoses Not on filedocumented in this encounter Care Teams Dishwasher Preparer Relationship Specialty Start Date End Date Sarah Verduzco DO [address] [place] [address] PCP - General Family Medicine 11/21/15 documented as of this encounter
--- OUTSIDE RECORDS SUMMARY | 2024-12-29 08:13 | XMS_ITS | Encounter Summary ---
Author Organization [employer] Address 75 [facility] 7t [place] [address] Care Team Providers Care Mail Processing Equipment Mechanic Name Role Phone Sarah Verduzco DO Primary Care Provider + [phone] Reason for Visit * Reason Onset Date Comments Appointment Request 08/22/2024 Encounter Details Date Type Department Care Team ([facility] Contact Info) Description 08/22/2024 Telephone [facility] MEDICINE 230 [place], [place] [phone] Sarah Verduzco DO 230 [place], [place] [phone] Appointment Request Social History Tobacco Use Types [...] DME RX Contact: Jerry, On behalf of [facility]'s Care Management staff [facility], we are requesting Durable Medical Equipment (DME) for the pt .I can facilitate the ordering process through our approved vendor (such as [employer], [employer], etc.), but a prescription for the DME item(s) is needed. The DME item(s)requested are - Shower chair - Cane Kindly send the prescriptions to ([email or web address]) for processing the DME referral on behalf of the patient. Please also provide the patient's current Height and Weight. Should you have any inquiries regarding this request, feel free to contact me [phone]. Thank you for your assistance in this matter. * Telephone Encounter - Priya Fritz RN - 09/01/2024 10:02 AM EST ----- Message from Lisa Kenny sent at 08/31/2024 3:20 PM EST ----- Regarding: DME RX Contact: Jerry, On behalf of [facility]'s Care Management staff [facility], we are requesting Durable Medical Equipment (DME) for the pt .I can facilitate the ordering process through our approved vendor (such as [employer], [employer], etc.), but a prescription for the DME item(s) is needed. The DME item(s)requested are - Shower chair - Cane Kindly send the prescriptions to ([email or web address]) for processing the DME referral on behalf of the patient. Please also provide the patient's current Height and Weight. Should you have any inquiries regarding this request, feel free to contact me [phone]. Thank you for your assistance in this matter. * Telephone Encounter - Thuy Nails - 08/22/2024 11:20 AM EST Tc from pt requesting to r/s pain management appointment from 08/23. Contact pt at [phone] documented in this encounter Plan of Treatment Upcoming Encounters Date Type Department Care Team (Late st Contact Info) Description 01/25/2025 10:30 AM EDT Office Visit [facility] OPTOMETRY [address] [place] [address] Cindy Meek, OD 230 [place] [address] 02/08/2025 10:00 AM EDT Clinical Support [facility] MEDICINE [address] [place] [address] Lauryn Cunningham, RN documented as of this encounter Visit Diagnoses Not on filedocumented in this encounter Additional Health Concerns Assessment Noted Time PHQ-9 Depression Total Score: 11 024 10:42 AM EDT documented as of this encounter Care Teams Mail Processing Equipment Mechanic Relationship Specialty Start Date End Date Sarah Verduzco DO 230 [place] [address] PCP - General Family Medicine 11/21/15 documented as of this encounter
--- OUTSIDE RECORDS SUMMARY | 2024-12-29 08:13 | XMS_ITS | Encounter Summary ---
Author Organization [facility] Address [address] [facility] [place] [address] Care Team Providers Care Clinical Medical Assistant Name Role Phone Sarah Verduzco DO Primary Care Provider Aura Kramer MD Unavailable [phone] Mimi Newsome PA-C Unavailable Kaleb Tripathi PA-C Unavailable Encounter Details Date Type Department Care Team Description 12/31/2021 Orders Only [facility] Neurosurgery [place] [address] [facility] [address] [place] [address] Kaleb Tripathi PA-C [address] [phone] Neck pain Social History Tobacco Use Types [...] NO CONTRAST (12/31/2021) Kaleb Tripathi PA-C MRI [address] [place] documented in this encounter Visit Diagnoses Diagnosis Neck pain Cervicalgia documented in this encounter Care Teams Clinical Medical Assistant Relationship Specialty Start Date End Date Sarah Verduzco DO PCP - General Internal Medicine 02/09/18 Aura Pollock MD [address] [phone] Surgeon Neurosurgery 12/09/21 Mimi Newsome PA-C [address] [address] Specialist Neurosurgery 12/09/21 Kaleb Tripathi PA-C [address] [phone] Specialist Neurosurgery 12/09/21 documented as of this encounter
--- OUTSIDE RECORDS SUMMARY | 2024-12-29 08:13 | XMS_ITS | Encounter Summary ---
Author Organization [employer] Address 75 [facility] 7t [place] [address] Care Team Providers Care Acoustics Teacher Name Role Phone Sarah Verduzco DO Primary Care Provider + [phone] Reason for Visit * Reason Comments Med Refill Encounter Details Date Type Department Care Team ([facility] Contact Info) Description 03/31/2024 Refill [facility] MEDICINE 230 [place], [place] [phone] Sarah Verduzco DO 230 [place], [place] [phone] Social History Tobacco Use Types Packs/Day Years [...] 01/25/2025 10:30 AM EDT Office Visit [facility] OPTOMETRY [address] [place], [place] [phone] Fantasma, Cindy, OD 230 [place] [address] 02/08/2025 10:00 AM EDT Clinical Support [facility] MEDICINE 230 [place] [address] Lauryn Cunningham, LUISITO documented as of this encounter Visit Diagnoses Not on filedocumented in this encounter Additional Health Concerns Assessment Noted Time PHQ-9 Depression Total Score: 24 023 8:54 AM EDT documented as of this encounter Care Teams Acoustics Teacher Relationship Specialty Start Date End Date Sarah Verduzco DO 230 [place] [address] PCP - General Family Medicine 11/21/15 documented as of this encounter
--- OUTSIDE RECORDS SUMMARY | 2024-12-29 08:13 | XMS_ITS | Encounter Summary ---
Author Organization [employer] Address 75 [facility] 7t [place] [address] Care Team Providers Care Tray Checker Name Role Phone Sarah Verduzco DO Primary Care Provider + [phone] Reason for Visit * Reason Comments Med Refill Encounter Details Date Type Department Care Team ([facility] Contact Info) Description 01/05/2024 Refill [facility] MEDICINE 230 [place], [place] [phone] Sarah Verduzco DO 230 [place], [place] [phone] Social History Tobacco Use Types Packs/Day Years [...] 10:30 AM EDT Office Visit [facility] OPTOMETRY [address] [place], [place] [phone] Fantasma, Cindy, OD 230 [place] [address] 02/08/2025 10:00 AM EDT Clinical Support [facility] MEDICINE 230 [place] [address] Lauryn Cunningham, LUISITO documented as of this encounter Visit Diagnoses Not on filedocumented in this encounter Additional Health Concerns Assessment Noted Time PHQ-9 Depression Total Score: 24 023 8:54 AM EDT documented as of this encounter Care Teams Tray Checker Relationship Specialty Start Date End Date Sarah Verduzco DO 230 [place] [address] PCP - General Family Medicine 11/21/15 documented as of this encounter
--- OUTSIDE RECORDS SUMMARY | 2024-12-29 08:13 | XMS_ITS | Encounter Summary ---
Author Organization [employer] Address 75 [facility] 7t [place] [address] Care Team Providers Care Pricing Director Name Role Phone Sarah Verduzco DO Primary Care Provider [phone] Reason for Visit * Reason Onset Date Comments Medication Question 03/24/2023 Encounter Details Date Type Department Care Team ([facility] Contact Info) Description 03/24/2023 Telephone [facility] MEDICINE 230 [place], [place] [phone] Sarah Verduzco DO 230 [place], [place] [phone] Medication Question Social History Tobacco Use Types [...] used to receive. Please contact pt at [phone] documented in this encounter Plan of Treatment Upcoming Encounters Date Type Department Care Team (Late st Contact Info) Description 01/25/2025 10:30 AM EDT Office Visit [facility] OPTOMETRY 267 [place] [address] Cindy Meek, OD 230 [place] [address] 02/08/2025 10:00 AM EDT Clinical Support [facility] MEDICINE [address] [place] [address] Lauryn Cunningham RN documented as of this encounter Visit Diagnoses Not on filedocumented in this encounter Additional Health Concerns Assessment Noted Time PHQ-9 Depression Total Score: 16 023 10:36 AM EDT documented as of this encounter Care Teams Pricing Director Relationship Specialty Start Date End Date Sarah Verduzco DO 230 [place] [address] PCP - General Family Medicine 11/21/15 documented as of this encounter
--- OUTSIDE RECORDS SUMMARY | 2024-12-29 08:13 | XMS_ITS | Encounter Summary ---
Author Organization [employer] Address 75 [facility] 7t [place] [address] Care Team Providers Care Paint Formulator Name Role Phone Sarah Verduzco DO Primary Care Provider [phone] Reason for Visit * Reason Onset Date Comments Nurse Triage 04/20/2023 Encounter Details Date Type Department Care Team ([facility] st Contact Info) Description 04/20/2023 Telephone [facility] MEDICINE 230 [place], [place] [phone] Sarah Verduzco DO 230 [place], [place] [phone] Nurse Triage Social History Tobacco Use Types [...] still has not received a call from [facility] to book appt. Pt. Also has Fibromyalgia [...] Description 01/25/2025 10:30 AM EDT Office Visit [facility] OPTOMETRY [address] [place] [address] Cindy Meek, ALBINA 230 [place] [address] 02/08/2025 10:00 AM EDT Clinical Support [facility] MEDICINE 230 [place] [address] Lauryn Cunningham RN documented as of this encounter Visit Diagnoses Not on filedocumented in this encounter Additional Health Concerns Assessment Noted Time PHQ-9 Depression Total Score: 16 01/27/ 023 10:36 AM EDT documented as of this encounter Care Teams Paint Formulator Relationship Specialty Start Date End Date Sarah Verduzco DO 230 [place] [address] PCP - General Family Medicine 11/21/15 documented as of this encounter
--- OUTSIDE RECORDS SUMMARY | 2024-12-29 08:13 | XMS_ITS | Encounter Summary ---
Author Organization [facility] Address [address] [facility] [place] [address] Care Team Providers Care Seismic Engineer Name Role Phone Sheila Eubanks MD Primary Care Provider Unava carley Thapa, Pcp Primary Care Provider Sarah Mckay DO Primary Care Provider Unava ilable Aura Pollock MD Unavailable [phone] Mimi Newsome PA-C Unavailable [phone] Kaleb Tripathi PA-C Unavailable Encounter Details Date Type Department Care Team Description 07/08/2017 Harp Regulator Report Medical Records [address] [place] [address] [address] Social History Tobacco Use Types Packs/Day Years Used Date Smoking Tobacco: Never Assessed Sex Assigned at Date Recorded Not on file documented as of this encounter Plan of Treatment Not on file documented as of this encounter Visit Diagnoses Not on filedocumented in this encounter Care Teams Seismic Engineer Relationship Specialty Start Date End Date Sheila Eubanks MD PCP - General Internal Medicine 05/28/17 01/21/18 Babar Thapa PCP - General Internal Medicine 01/22/18 02/08/18 Sarah Verduzco DO PCP - General Internal Medicine 02/09/18 Aura Pollock MD [address] [address] Surgeon Neurosurgery 12/09/21 Mimi Newsome PA-C [address] [address] Specialist Neurosurgery 12/09/21 Kaleb Tripathi PA-C [address] [address] Specialist Neurosurgery 12/09/21 documented as of this encounter
--- OUTSIDE RECORDS SUMMARY | 2024-12-29 08:13 | XMS_ITS | Encounter Summary ---
Author Organization [employer] Address 75 [facility] 7t [place] [address] Care Team Providers Care Cancer Center Director Name Role Phone Sarah Verduzco DO Primary Care Provider [phone] Reason for Visit * Reason Onset Date Comments Med Refill 03/20/2023 Encounter Details Date Type Department Care Team (Late st Contact Info) Description 03/20/2023 Telephone [facility] MEDICINE 230 [place], [place] [phone] Sarah Verduzco DO 230 [place], [place] [phone] Med Refill Social History Tobacco Use Types [...] 50 mg tablet to be sent to [facility]/pharmacy #[id number] -[place], [place] - [address] documented in this encounter Plan of Treatment Upcoming Encounters Date Type Department Care Team (Late st Contact Info) Description 01/25/2025 10:30 AM EDT Office Visit [facility] OPTOMETRY [address] [place] [address] Cindy Meek, OD 230 [place], [place] [phone] 02/08/2025 10:00 AM EDT Clinical Support [facility] MEDICINE 230 [place], [place] [phone] Lauryn Cunningham RN documented as of this encounter Visit Diagnoses Not on filedocumented in this encounter Additional Health Concerns Assessment Noted Time PHQ-9 Depression Total Score: 16 023 10:36 AM EDT documented as of this encounter Care Teams Cancer Center Director Relationship Specialty Start Date End Date Sarah Verduzco DO 230 [place], [place] [phone] PCP - General Family Medicine 11/21/15 documented as of this encounter
--- OUTSIDE RECORDS SUMMARY | 2024-12-29 08:13 | XMS_ITS | Encounter Summary ---
Author Organization [employer] Address 75 [facility] 7t [place] [address] Care Team Providers Care Measurement Coordinator Name Role Phone Sarah Verduzco DO Primary Care Provider + [phone] Reason for Visit * Reason Onset Date Comments Appointment Request 04/04/2024 Encounter Details Date Type Department Care Team ([facility] Contact Info) Description 04/04/2024 Telephone [facility] MEDICINE 230 [place], [place] [phone] Sarah Verduzco DO 230 [place], [place] [phone] Appointment Request Social History Tobacco Use Types [...] Miscellaneous Notes * Telephone Encounter - Martin iDggs - 04/04/2024 11:04 AM EDT Tc from pt requesting to reschedule tomorrows pain management appt 04/05. Please contact pt at [phone]. documented in this encounter Plan of Treatment Upcoming Encounters Date Type Department Care Team (Late st Contact Info) Description 01/25/2025 10:30 AM EDT Office Visit [facility] OPTOMETRY [address] [place], [place] [phone] Cindy Meek, OD 230 [place] [address] 02/08/2025 10:00 AM EDT Clinical Support [facility] MEDICINE 230 [place] [address] Lauryn Cunningham, LUISITO documented as of this encounter Visit Diagnoses Not on filedocumented in this encounter Additional Health Concerns Assessment Noted Time PHQ-9 Depression Total Score: 24 023 8:54 AM EDT documented as of this encounter Care Teams Measurement Coordinator Relationship Specialty Start Date End Date Sarah Verduzco DO 230 [place] [address] PCP - General Family Medicine 11/21/15 documented as of this encounter
--- OUTSIDE RECORDS SUMMARY | 2024-12-29 08:13 | XMS_ITS | Encounter Summary ---
Author Organization [employer] Address [address] [facility] 7t [place] [address] Care Team Providers Care Software Firmware Engineer Name Role Phone Sarah Verduzco DO Primary Care Provider + [phone] Reason for Visit * Reason Comments Med Refill Encounter Details Date Type Department Care Team ([facility] Contact Info) Description 06/20/2023 Refill [facility] MEDICINE 230 [place], [place] [phone] Sarah Verduzco DO 230 [place] [address] Chronic neck pain Social History Tobacco Use [...] Description 01/25/2025 10:30 AM EDT Office Visit [facility] OPTOMETRY [address] [place], [place] [phone] Fantasma, Cindy, OD 230 [place] [address] 02/08/2025 10:00 AM EDT Clinical Support [facility] MEDICINE 230 [place] [address] Lauryn Cunningham, LUISITO documented as of this encounter Visit Diagnoses Diagnosis Chronic neck pain Cervicalgia documented in this encounter Additional Health Concerns Assessment Noted Time PHQ-9 Depression Total Score: 24 023 8:54 AM EDT documented as of this encounter Care Teams Software Firmware Engineer Relationship Specialty Start Date End Date Sarah Verduzco DO 230 [place] [address] PCP - General Family Medicine 11/21/15 documented as of this encounter
--- OUTSIDE RECORDS SUMMARY | 2024-12-29 08:13 | XMS_ITS | Encounter Summary ---
Author Organization [employer] Address 75 [facility] 7t [place] [address] Care Team Providers Care Salesperson Terrazzo Tiles Name Role Phone Sarah Verduzco DO Primary Care Provider + [phone] Reason for Visit * Reason Comments Med Refill Encounter Details Date Type Department Care Team ([facility] Contact Info) Description 01/29/2024 Refill [facility] MEDICINE 230 [place], [place] [phone] Sarah Verduzco DO 230 [place], [place] [phone] Social History Tobacco Use Types Packs/Day Years [...] Description 01/25/2025 10:30 AM EDT Office Visit [facility] OPTOMETRY [address] [place], [place] [phone] Fantasma, Cindy, OD 230 [place] [address] 02/08/2025 10:00 AM EDT Clinical Support [facility] MEDICINE 230 [place] [address] Lauryn Cunningham, LUISITO documented as of this encounter Visit Diagnoses Not on filedocumented in this encounter Additional Health Concerns Assessment Noted Time PHQ-9 Depression Total Score: 24 023 8:54 AM EDT documented as of this encounter Care Teams Salesperson [employer] T[employer] Relationship Specialty Start Date End Date Sarah Verduzco DO 230 [place] [address] PCP - General Family Medicine 11/21/15 documented as of this encounter
--- OUTSIDE RECORDS SUMMARY | 2024-12-29 08:13 | XMS_ITS | Encounter Summary ---
Author Organization [employer] Address [address] [facility] 7t [place] [address] Care Team Providers Care Inspector Timers Name Role Phone Sarah Verduzco DO Primary Care Provider + [phone] Reason for Visit * Reason Comments Med Refill Encounter Details Date Type Department Care Team (Late Contact Info) Description 04/19/2023 Refill [facility] MEDICINE 230 [place], [place] [phone] Sarah Verduzco DO 230 [place] [address] Chronic GERD Social History Tobacco Use Types [...] 10:30 AM EDT Office Visit [facility] OPTOMETRY [address] [place] [address] Fantasma, Cindy, OD 230 [place] [address] 02/08/2025 10:00 AM EDT Clinical Support [facility] MEDICINE 230 [place] [address] Lauryn Cunningham, LUIISTO documented as of this encounter Visit Diagnoses Diagnosis Chronic GERD documented in this encounter Additional Health Concerns Assessment Noted Time PHQ-9 Depression Total Score: 16 023 10:36 AM EDT documented as of this encounter Care Teams Inspector Timers Relationship Specialty Start Date End Date Sarah Verduzco DO 230 [place] [address] PCP - General Family Medicine 11/21/15 documented as of this encounter
--- OUTSIDE RECORDS SUMMARY | 2024-12-29 08:13 | XMS_ITS | Encounter Summary ---
Author Organization [employer] Address [address] [facility] 7t [place] [address] Care Team Providers Care Lens Engraver Name Role Phone DaxSarah Primary Care Provider + [phone] Encounter Details Date Type Department Care Team (Late st Contact Info) Description 12/22/2023 Orders Only [facility] MEDICINE [address] [place] [address] ProviderTristan MD Social History Tobacco Use Types [...] Description 01/25/2025 10:30 AM EDT Office Visit [facility] OPTOMETRY [address] [place], [place] [phone] Fantasma, Cindy, OD 230 [place] [address] 02/08/2025 10:00 AM EDT Clinical Support [facility] MEDICINE [address] [place], [place] [phone] Lauryn Cunningham RN documented as of this [...] documented as of this encounter Care Teams Lens Engraver Relationship Specialty Start Date End Date Sarah Verduzco DO 230 [place], [place] [phone] PCP - General Family Medicine 11/21/15 documented as of this encounter
--- OUTSIDE RECORDS SUMMARY | 2024-12-29 08:14 | XMS_ITS | Encounter Summary ---
Author Organization [employer] Address [address] [facility] 7t [place] [address] Care Team Providers Care Edger Tailer Name Role Phone MaddieSarah arriaga Primary Care Provider + [phone] Reason for Visit * Reason Comments Med Refill Encounter Details Date Type Department Care Team (Late Contact Info) Description 04/19/2023 Refill [facility] MEDICINE 230 [place] [address] Alexa Padgett FNP [address] [place] [address] Dept [place] [address] Chronic bilateral low back pain without sciatica [...] Description 01/25/2025 10:30 AM EDT Office Visit [facility] OPTOMETRY [address] [place], [place] [phone] Fantasma, Cindy, OD 230 [place], [place] [phone] 02/08/2025 10:00 AM EDT Clinical Support [facility] MEDICINE 230 [place] [address] Lauryn Cunningham RN documented as of this encounter Visit Diagnoses Diagnosis Chronic bilateral low back pain without sciatica documented in this encounter Additional Health Concerns Assessment Noted Time PHQ-9 Depression Total Score: 16 023 10:36 AM EDT documented as of this encounter Care Teams Edger Tailer Relationship Specialty Start Date End Date Sarah Verduzco DO 230 [place] [address] PCP - General Family Medicine 11/21/15 documented as of this encounter
--- OUTSIDE RECORDS SUMMARY | 2024-12-29 08:14 | XMS_ITS | Encounter Summary ---
Author Organization [employer] Address [address] [facility] 7t [place] [address] Care Team Providers Care Chute Loader Name Role Phone Sarah Verduzco DO Primary Care Provider + [phone] Reason for Visit * Reason Comments Med Refill Encounter Details Date Type Department Care Team ([facility] Contact Info) Description 10/05/[address] [facility] MEDICINE 230 [place], [place] [phone] Sarah Verduzco DO 230 [place], [place] [phone] Social History Tobacco Use Types Packs/Day Years [...] [facility] OPT[facility]RY [address] [place], [place] [phone] Cindy Meek, OD 230 [place] [address] 02/08/2025 10:00 AM EDT Clinical Support [facility] MEDICINE 230 [place] [address] Lauryn Cunningham, LUISITO documented as of this encounter Visit Diagnoses Not on filedocumented in this encounter Additional Health Concerns Assessment Noted Time PHQ-9 Depression Total Score: 11 024 10:42 AM EDT documented as of this encounter Care Teams Chute Loader Relationship Specialty Start Date End Date Sarah Verduzco DO 230 [place] [address] PCP - General Family Medicine 11/21/15 documented as of this encounter
--- OUTSIDE RECORDS SUMMARY | 2024-12-29 08:14 | XMS_ITS | Encounter Summary ---
Author Organization [employer] Address [address] [facility] [address] [place] [address] Care Team Providers Care Director Of Corporate Sales Name Role Phone Sarah Verduzco DO Primary Care Provider + [phone] Reason for Visit * Reason Comments Med Refill Encounter Details Date Type Department Care Team ([facility] Contact Info) Description 04/06/2024 Refill [facility] [address] [place], [place] [phone] Sarah Verduzco DO [address] [place], [place] [phone] Social History Tobacco Use Types Packs/Day Years [...] Description 01/25/2025 10:30 AM EDT Office Visit [facility] [address] [place], [place] [phone] Fantasma, Cindy, OD [address] [place] [address] 02/08/2025 10:00 AM EDT Clinical Support [facility] [address] [place] [address] Lauryn Cunningham, LUISITO documented as of this encounter Visit Diagnoses Not on filedocumented in this encounter Additional Health Concerns Assessment Noted Time PHQ-9 Depression Total Score: 24 023 8:54 AM EDT documented as of this encounter Care Teams Director Of Corporate Sales Relationship Specialty Start Date End Date Sarah Verduzco DO [address] [place] [address] PCP - General Family Medicine 11/21/15 documented as of this encounter
--- OUTSIDE RECORDS SUMMARY | 2024-12-29 08:14 | XMS_ITS | Clinical Summary ---
Author Organization [facility] Address [address] [place] [address] Phone Care Team Providers Care Amplifier Mechanic Name Role Phone Sarah Verduzco Primary Care Provider [phone] Allergies Active Allergy Reactions Criticality Noted Date [...] study, she states it was done [place] [facility] [place], we called to have it faxed over, it is dated 09/09/2023 and showed normal motor and sensory nerve conduction study. Normal EMG except may suggest mild chronic L5 radiculopathy. She also had lumbar spine MRI 07/02/2024 at [facility], there is no official report from radiology. [...] opioids 07/07/2024 Overview (08/04/2024): Dx: Rx: Last [employer]OTO[employer] SALES ASSOCIATE agreement: Tier II (visit every 3 months) [...] 11/05/2017 Insomnia 11/05/2017 Major depression, recurrent, chronic (CMS/HCC V2 4) 11/05/2017 Gastric reflux 11/05/2017 Cervical spondylosis with [...] Review of the cervical spine MRI at [facility] dated 02/26/2024 shows a solid arthrodesis at [...] accident. She rates her current neck pain 03/23, states there are occasions when her left fingers will lock up on her. She went to physical therapy for about 6 weeks, states it really did not help, possibly made her feel little worse. She is not at a point where she would consider surgery on her neck yet. Patient has neck pain 03/23, we talked about other conservative treatment options she could try like acupuncture, a few names provided. We reviewed the images of her prior C-spine MRI from [facility] 02/26/2024 that showed solid arthrodesis C6-7, right [...] Team Description 10/20/2024 8:00 AM EST Evaluation [facility] [address] [address] Darby Chirinos, ADRI Cervical spondylosis with radiculopathy (Primary Dx) from Last 3 Months Immunizations Name Administration Dates Next Due Tdap Tetanus diptheria acell ular pertussis (Boostrix; Adacel) 7yo and older 12/13/2022,06/10/2022 Surgical History Surgery Date Site/Laterality Comments HYSTERECTOMY PROCEDURE: HISTORICAL HYSTERECTOMY TUBAL LIGATION PROCEDURE: HISTORICAL TUBAL LIGATION CHOLECYSTECTOMY PROCEDURE: [place] LAPAROSCOPY SURG CHOLECYSTECTOMY EYE SURGERY PROCEDURE: HISTORICAL [...] Insomnia 11/05/2017 DX:Insomnia Major depression, recurrent, chronic (CMS/HCC V24) 11/05/2017 DX:Major depression, recurre nt, chronic (HCC) [...] Done Comments Breast Cancer Screening 1965 Hepatitis A Vaccines (1 of 2 - Risk 2-dose series) 1985 Hepatitis B Vaccines (1 of 3 - [...] - 2023-2 5 season) 2024 02/01/2021, 01/04/2021 Depression Screening 05/04/2025 05/04/2024 Influenza Vaccine (Season Ended) 2025 Cholesterol Screening (Lipid Panel) 05/04/2029 05/04/2024 DTaP,Tdap,and [...] age to complete this topic Meningococcal B Vaccine Aged Out No l onger eligible based on patient's age to complete [...] ID:[id number] Group ID:[id number] Type:Not on file Address: [facility] [address] [address] Care Teams Amplifier Mechanic Relationship Specialty Start Date End Date Sarah Verduzco DO [address] [place] [address] PCP - General Internal Medicine 02/09/18
--- OUTSIDE RECORDS SUMMARY | 2024-12-29 08:14 | XMS_ITS | Data Portability ---
Author Organization [email or web address] [facility] - [facility] Address [address] [place] [address] Care Team Providers Care Refuse And Recycling Worker Name Role Phone [facility] Referring Provider Assessment Encounter Date Assessment Date Assessment LastModified by Organization Details LastModified Time 03/18/2023 03/18/2023 I provided real -time medical direction via phone for this encounter, and was available for additional phone based assistance as needed. I have reviewed and agree with the Assessment and Plan as documented by the Pig Conveyor Operator. Patient given the opportunity to ask questions. Advised if develops CP/severe SOB/turning blue/uncontrolle d pain in flank/ abd or uncontrolled n/v/d or black/bloody emesis or stool/ AMS/ syncope/ hi fever unresponsive to APAP to call 911- advised close f/u with pcp and urology -verbalized understanding of instructions to the medic [email or web address] Not available 03/18/2023 12:04:35 Plan of Treatment Reminders Order Date Submit Date Provider Last Modified By Organization Details Last Modified Time Details Appointments None recorded. Lab rapid SARS CoV 2 Ag, QL IA, respiratory specimen 2023 024 gbaci [facility], [address] [place] [address], [id number] 4 18:19:53 rapid flu (A+B) 2023 024 gbaci [facility], [address] [place] [address], [id number] 4 18:19:51 culture, urine 2022 023 REINALDO [facility] (Centralized Electronic Ordering - All Locations), Patient Can Go To The Location Of Their Choice, [id number] 3 15:12:44 urinalysis, dipstick 2022 023 [email or web address] 0 [facility], [address] [place] [address], [id number] 3 17:08:56 rapid SARS CoV 2 Ag, QL IA, respiratory specimen 2022 023 [email or web address] 0 [facility], [address] [place] [address], [id number] 3 12:05:04 rapid flu (A+B) 2022 023 [email or web address] 0 [facility], [address] [place] [address], [id number] 3 12:05:04 Referral None recorded. Procedures None recorded. Surgeries None recorded. Imaging None recorded. Medication Orders Valtrex 1 gram tablet 2023 024 [facility] #[id number], [address] [place], [address], 4 18:10:29 Bactrim DS 800 mg-160 mg tablet 2022 023 [email or web address] 0 Not available 3 11:58:51 Bactrim DS 800 mg-160 mg tablet 2022 023 [facility] #[id number], [address] [place], [address], 3 12:01:26 Patient TargetsNo targets recorded. Patient InstructionsNo instructions recorded. Reason for Referral None Reported. Results Created Date Observation Date Name Description Value Unit Range Abnormal Flag Note LastModifiedBy Organization Detail LastModifiedTime 03/18/2003/18/2023 URINE CULTU RE specimen description URINE Not Available [facility] (Centralized Electronic Ordering - All Locations) Patient Can Go To The Location Of Their Choice, 03/20/2023 15:12:44 03/18/2003/18/2023 URINE CULTU RE special [...] Choice, 03/20/2023 15:12:44 03/18/2003/20/2023 URINE CULTU RE ampicillin AMPICI LLIN SUSCEP TIBLE susceptib le Not Available [facility] (Centralized Electronic Ordering - All Locations) Patient Can Go To The Location Of Their Choice, 03/20/2023 15:12:44 03/18/2003/20/2023 URINE CULTU RE ampicillin/s ulbactam AMPICI LLIN/S ULBACT AM SUSCEP TIBLE susceptib le Not Available [facility] (Centralized Electronic Ordering - All Locations) Patient Can Go To The Location Of Their Choice, 03/20/2023 15:12:44 03/18/2003/20/2023 URINE CULTU RE cefazolin CEFAZO RAQUEL SUSCEP TIBLE susceptib le Not Available [facility] (Centralized Electronic Ordering - All Locations) Patient Can Go To The Location Of Their Choice, 03/20/2023 15:12:44 03/18/2003/20/2023 URINE CULTU RE cefepime CEFEPI ME SUSCEP [...] Choice, 03/20/2023 15:12:44 03/18/2003/20/2023 URINE CULTU RE ciprofloxaci n CIPROF LOXACI [...] Choice, 03/20/2023 15:12:44 03/18/2003/20/2023 URINE CULTU RE levofloxacin LEVOFL OXACIN SUSCEP [...] Leukocytes 3+ Not Available [facility] [address] [place] [address], [phone] 03/18/2023 12:05:18 03/18/20 23 03/18/2023 urina lysis , dipst ick Nitrite negati ve Not Available [facility] [address] [place] [address], [address] 03/18/2023 12:05:18 03/18/20 23 03/18/2023 urina lysis , dipst ick Urobilinogen neg Not Available [facility] [address] [place] [address], [phone] 03/18/2023 12:05:18 03/18/20 23 03/18/2023 urina lysis , dipst ick Protein trace Not Available [facility] [address] [place] [address], [place], [address] 03/18/2023 12:05:18 03/18/20 23 03/18/2023 urina lysis , dipst ick pH 6 Not Available [facility] [address], [address] 03/18/2023 12:05:18 03/18/20 23 03/18/2023 urina lysis , dipst ick Blood 4+ Not Available [facility] [address], [address] 03/18/2023 12:05:18 03/18/20 23 03/18/2023 urina lysis , dipst ick Specific [place] 1.025 Not Available [facility] [address] [place] [address], [address] 03/18/2023 12:05:18 03/18/20 23 03/18/2023 urina lysis , dipst ick Ketone neg Not Available [facility] - [facility] [address], [address] 03/18/2023 12:05:18 03/18/20 23 03/18/2023 urina lysis , dipst ick Bilirubin trace Not Available [facility] [address] [place] [address], [address] 03/18/2023 12:05:18 03/18/20 23 03/18/2023 urina lysis , dipst ick Glucose neg Not Available [facility] [address], [address] 03/18/2023 12:05:18 03/18/20 23 03/18/2023 urina lysis , dipst ick Appearance clear Not Available [facility] [address] [place] [address], [address] 03/18/2023 12:05:18 03/18/20 23 03/18/2023 urina lysis , dipst ick Color light yellow Not Available [facility] [address] [place] [address], [address] 03/18/2023 12:05:18 03/18/20 23 03/18/2023 rapid flu (A+B) Flu negati ve Not Available [facility] [address] [place] [address], [phone] 03/18/2023 12:04:44 03/18/20 03/18/2023 rapid SARS CoV 2 Ag, QL IA, respi rator y speci men rapid SARS CoV 2 Ag, QL IA, respiratory specimen negati ve Not Available [facility] ed [address] [place] [address], [phone] 03/18/2023 12:04:39 11/03/19 24 11/03/2023 rapid flu (A+B) Flu negati ve Not Available [facility] ed [address] [place] [address], [address] 11/03/2023 18:19:38 11/03/19 24 11/03/2023 rapid SARS CoV 2 Ag, QL IA, respi rator y speci men rapid SARS CoV 2 Ag, QL IA, respiratory specimen negati ve Not Available [address], [address] 11/03/2023 18:19:30 Result Notes None recorded. Medical [...] Not available Not available Not available 03/18/2023 [id number] 2003 SNOMED Kristyn Paredes MD [address] [place] [address],[address], [place], [address] [employer] [facility] 3 11:50:26 Medications Name Sig Start Date [...] /min 101 mm[Hg] 73 mm[Hg] Not Available [employer] 3 11:45:05 Date Recorded Body weight Provider Name an d Address Organization Details Last Updated DateTime 03/18/2023 12834.53 g Sonal Guthrie [address] [place] [address],[address], [place], [address], [place] - [employer] [facility] 03/18/2023 17:03:15 Date Recorded Heart rate Body height Oxygen saturation Oxygen saturation in Arterial blood by Pulse oximetry Body weight Body temperature Respiratory rate Systolic blood pressure Diastolic blood pressure Provider Name and Address Organization Details Last Updated DateTime 4 67 /min 149.86 cm 96 % 96 % 34281.0 4 g 98.5 [degF] 18 /min 106 mm[Hg] 74 mm[Hg] Not Available [employer] 4 18:02:40 Social History None recorded. Functional Status None recorded. Mental Status None recorded. Family History Nothing Reported. Medical History No medical history recorded. Gynecological HistoryNo gynecological history recorded. Obstetrics History GPAL:G 0 P 0 0 0 0 Past Encounters Encounter ID Performer Location Encounter Start Date Encounter Closed Date Diagnosis/Indication Diagnosis SNOMED-CT Code Diagnosis ICD10 Code Diagnosis Note [id number] Kristyn Paredes MD [facility] - [employer] [address] [place] [phone] 03/18/2023 11:44:55 03/19/2023 10:13:17 Viral upper respiratory tract infection 186617423 J06.9 Advised if has eye s/s - redness/ d/c or visual changes pls call ophthalmol ogy eliazar/ continue claritin and fluticason e daily- Urinary symptoms 1826706 08 R39.9 has recurrent UTI but other [...] day. GAEL FIELDS MD [facility] [address] [place] [address] 11/03/2023 18:02:26 11/04/2023 12:39:09 Herpes labialis 1328785 B00.1 Evaluation in the field was performed by my ux designer colleague, as noted above, I provided real-time [...] Mccollum Member ID Guarantor Name 03/18/2023 1 [facility] - DOS ON OR AFTER 2022 - DUAL ELIGIBLE - CARE HOME OPTIONS AND ONE CARE (MEDICARE REPLACEMENT/ADV ANTAGE - HMO) M[employer]am Fan [id number] [employer] 11/03/2023 1 [facility] - DOS ON OR AFTER 2022 - DUAL ELIGIBLE - CARE HOME OPTIONS AND ONE CARE (MEDICARE REPLACEMENT/ADV ANTAGE - HMO) [employer] Fan [id number] [employer] Notes Date Note Type Note [...] .................. .................. .................. .................. .................. .................. ............... Pig Conveyor Operator Note From Courtney Gomez: [facility] Pig Conveyor Operator Damaso Jason [facility] a 57 y[facility] C/O sinus pain/pressure. [...] urine appeared abnormal. Urine dip in insted. [facility] consulted; pt was given 800 mg bactrim PO, and urine sample was brought to [facility] laboratory for culture. She was instructed to take 500 mg tylenol every 6 hours, and to try Coricidin for the sinus pain/pressure. Pt was educated on general S/S mgmt, and red flags were discussed at length. .................. .................. .................. .................. .................. .................. .................. ............... Disposition: FulfilledAS above- she also denies ear pain/hearing changes/ redness or discharge from her eyes. She denies dizziness. Jewell is already on claritin and fluticasone in addition to prednisolone eye drops.. She is followed by urology for frequent UTis and hematuria- often has no symptoms. Unsure of last abx she was given ( no prior visits in [place] ) but has had bactrim in the past without problems. She reports Temp 101 this am took 1 gram Tylenol- no afebrile Kristyn Paredes MD [address] [facility],[address], [place], [address], [email or web address] 03/18/2023 17:09:19 11/03/2023 text/html HPI: Hx GERD, Anxiety, cervical deg. disc disease. .................. .................. .................. .................. .................. .................. .................. ............... [facility] Nurse Triage Notes (Fiona Nieves): Comments: HPI reviewed. No additional information needed to process .................. .................. .................. .................. .................. .................. .................. ............... Pig Conveyor Operator Note From Rubi Hoffman: Sent to [...] covid test: neg; Rapid flu test: neg; [facility] consulted and pt advised it seems lesions are cold sores. [facility] sends script to pt's pharmacy. Pt advised she should drink lots of fluid, take Tylenol for pain, and pt should start seeing improvement in 48hrs. Red flags discussed. Pt has no further questions. .................. .................. .................. .................. .................. .................. .................. ............... Disposition: Fulfilled GAEL FIELDS MD [address] [facility],[address], [place], [address], [email or web address] 11/03/2023 22:21:59 OBGyn Episode No OBEpisode recorded.
== END 2024-12-29 08:06 | disposition home or self-care (01) ==
LOC: HO.CT 08:05
PROVIDERS: PCP Family Medicine; Visit Provider Surgery
DX: K43.2 Incisional hernia without obstruction or gangrene (principal)
CPT/HCPCS: 72192

== ENCOUNTER → 2024-12-29 08:07 | Outpatient (BNV) | payer OTHER, SELFPAY | PROVIDERS: PCP Family Medicine; Visit Provider Specialist | DX: R10.31 Right lower quadrant pain (principal) | CPT/HCPCS: 72192 ==

== ENCOUNTER 2025-01-03 08:37 | Outpatient (AMB) | payer OTHER, SELFPAY ==
--- OUTSIDE RECORDS SUMMARY | 2025-01-03 08:57 | XMS_ITS | Clinical Summary ---
Author Organization [facility] Address [address] [facility] [place] [address] Care Team Providers Care Call Center Manager Name Role Phone Sarah Verduzco DO Primary Care Provider Aura Kramer MD Unavailable [phone] Mimi Newsome PA-C Unavailable [phone] Kaleb Tripathi PA-C Unavailable Allergies Active Allergy [...] mouth daily. 0 Active Cholecalciferol (VITAMIN D3) 75067 UNITS Tab Take 1 Tab by mouth [...] infection. 1 Inhaler 5 09/09/2017 Active D3-50 66533 UNITS Cap Take 1 Cap by mouth once a week. 8 Cap 0 07/15/2018 Active Arthritis Pain Relief 650 MG CR tablet TAKE 1 TABLET BY MOUTH EVERY 8 HOURS NEEDED FOR PAIN OR FEVER 0 11/16/2021 Active MUUIIKTOEE-WIGS-FPN FEINE 50-325-40 MG OR TABS (FIORICET, ESGIC) [...] Review of the cervical spine MRI at [facility] dated 02/26/2024 shows a solid arthrodesis at [...] the Breast Aunt Arthritis Father RA, DM NE Mother cause of Diabetes Sister 1 Thyroid [...] 09/14/2024 INFLUENZA (Season Ended) 2025 Care Teams Call Center Manager Relationship Specialty Start Date End Date Sarah Verduzco DO PCP - General Internal Medicine 02/09/18 Aura Pollock MD [address] [address] Surgeon Neurosurgery 12/09/21 Mimi Newsome PA-C [address] [address] Specialist Neurosurgery 12/09/21 Kaleb Tripathi PA-C [address] [place] [address] [address] [place] [address] Specialist Neurosurgery 12/09/21
--- OUTSIDE RECORDS SUMMARY | 2025-01-03 08:57 | XMS_ITS | Encounter Summary ---
Author Organization [employer] Address [address] [facility] [address] [place] [address] Care Team Providers Care Zoo Director Name Role Phone Sarah Verduzco DO Primary Care Provider + [phone] Reason for Visit * Reason Comments Med Refill Encounter Details Date Type Department Care Team ([facility] Contact Info) Description 12/06/2024 Refill [facility] [address] [place], [place] [phone] Sarah Verduzco DO [address] [place], [place] [phone] Social History Tobacco Use Types Packs/Day Years [...] Description 01/25/2025 10:30 AM EDT Office Visit [facility] [address] [place] [address] Cindy Meek, OD [address] [place] [address] 02/08/2025 10:00 AM EDT Clinical Support [facility] [address] [place] [address] Lauryn Cunningham, LUISITO documented as of this encounter Visit Diagnoses Not on filedocumented in this encounter Additional Health Concerns Assessment Noted Time PHQ-9 Depression Total Score: 20 025 11:28 AM EST documented as of this encounter Care Teams Zoo Director Relationship Specialty Start Date End Date Sarah Verduzco DO [address] [place] [address] PCP - General Family Medicine 11/21/15 documented as of this encounter
--- OUTSIDE RECORDS SUMMARY | 2025-01-03 08:57 | XMS_ITS | Encounter Summary ---
Author Organization [employer] Address [address] [facility] [address] [place] [address] Care Team Providers Care Ceiling Installer Name Role Phone Sarah Verduzco DO Primary Care Provider + [phone] Reason for Visit * Reason Comments Med Refill Encounter Details Date Type Department Care Team ([facility] Contact Info) Description 09/08/2023 Refill [facility] [address] [place], [place] [phone] Sarah Verduzco DO [address] [place] [address] Social History Tobacco Use Types Packs/Day Years [...] Description 01/25/2025 10:30 AM EDT Office Visit [facility] [address] [place], [place] [phone] Fantasma, Cindy, OD [address] [place] [address] 02/08/2025 10:00 AM EDT Clinical Support [facility] [address] [place] [address] Lauryn Cunningham, LUISITO documented as of this encounter Visit Diagnoses Not on filedocumented in this encounter Additional Health Concerns Assessment Noted Time PHQ-9 Depression Total Score: 24 023 8:54 AM EDT documented as of this encounter Care Teams Ceiling Installer Relationship Specialty Start Date End Date Sarah Verduzco DO [address] [place] [address] PCP - General Family Medicine 11/21/15 documented as of this encounter
--- OUTSIDE RECORDS SUMMARY | 2025-01-03 08:57 | XMS_ITS | Encounter Summary ---
Author Organization [employer] Address [address] 7t [place] [address] Care Team Providers Care Core Microarchitect Name Role Phone Dax Sarah Primary Care Provider + [phone] Encounter Details Date Type Department Care Team ([facility] st Contact Info) Description 12/29/2024 Orders Only [facility] External Provider, [facility] Social History Tobacco Use Types Packs/Day Years [...] Upcoming Encounters Date Type Department Care Team ([facility] st Contact Info) Description 01/25/2025 10:30 AM EDT Office Visit [facility] OPTOMETRY [address] [place] [address] FantasmaCindy sanchez, OD 230 [place] [address] 02/08/2025 10:00 AM EDT Clinical Support [facility] 230 [place] [address] Lauryn Cunningham, LUISITO documented as of this encounter Procedures Procedure Name Priority Date/Time Associated Diagnosis Comments CT PELVIS WO CONTRAST Routine 12/30/2024 8:24 AM EDT documented in this encounter Results * CT Pelvis w/o Contrast (12/30/2024 8:24 AM EDT) Anatomical Region Laterality Modality Body, Pelvis Computed Tomogra phy 12/30/2024 8:24 AM EDT Narrative 12/30/2024 8:25 AM EDT ? [facility] ?[address] ?[place] [address] ? CT Scan Report ? Signed ? Patient: Fan,Miryam ?MR#: [id number] ?? 06 ? : 1965 ?Acct:[id number] ? Age/Sex: 59 / F ?ADM Date: 04/17/25 ? Loc: HO.CT ? Attending Dr: Hardik Jiang MD ? Ordering Physician: Hardik Jiang MD ?? Date of Service: 12/29/24 ?? Procedure(s): CT pelvis wo IV con ?? Accession Number(s): [id number] ? cc: Sarah Verduzco DO; Hardik Jiang MD ? Report Number: ?? [id number]: Total DLP = ??510.00 mGy-cm ? CLINICAL HISTORY: K43.2 - Incisional hernia without obstruction or gangrene --- Additional Notes or Special Instructions: Right lower quadrant abdominal pain, hernia possibly noted by ultrasound ? CT pelvis without contrast ? Comparison: None ? Findings: ? Pelvic contents unremarkable. Normal appendix. ?? There is no focal abdominal wall defect or hernia. ? No acute fracture. ? IMPRESSION: ?? No acute findings. ? This document has been electronically signed by: Ilir Trejo MD on ?? 12/30/2024 08:24:13 ? Dictated By: ?Ilir Trejo MD ? Signed By: ?<Electronically signed by Ilir Trejo MD in OV> ?12/30/24824 ? DD/ 3 ? TD/TT: 12/30/24823 ? Screening Specialist: ? Procedure Note Nitin Ayala - 12/30/[address] [place] [address] [address] Scan Report Signed Patient: Miryam FanMR#: [id number] 06 : 1965Acct:[id number] Age/Sex: 59 / FADM Date: 12/29/24 Loc: HO.CT Attending Dr: Hardik Jiang MD Ordering Physician: Hardik Jiang MD Date of Service: 12/29/24 Procedure(s): CT pelvis wo IV con Accession Number(s): [id number] cc: Sarah Verduzco DO; Hardik Jiang MD Report Number: [id number]: Total DLP = 510.00 mGy-cm CLINICAL HISTORY: K43.2 - Incisional hernia without obstruction organgrene --- Additional Notes or Special Instructions: Right lower quadrant abdominal pain, hernia possiblynoted by ultrasound CT pelvis without contrast Comparison: None Findings: Pelvic contents unremarkable. Normal appendix. There is no focal abdominal wall defect or hernia. No acute fracture. IMPRESSION: No acute findings. This document has been electronically signed by: Ilir Trejo MD on 12/30/2024 08:24:13 Dictated By: Ilir Trejo MD Signed By: <Electronically signed by Ilir Trejo MD in OV> 12/30/24824 DD/ 3 TD/TT: 12/30/24823 Screening Specialist: [facility] External Provider IMG CT PROCEDURES Edited Result - Final documented in this encounter Visit Diagnoses Not on filedocumented in this encounter Additional Health Concerns Assessment Noted Time PHQ-9 Depression Total Score: 20 025 11:28 AM EST documented as of this encounter Care Teams Core Microarchitect Relationship Specialty Start Date End Date Sarah Verduzco DO [address] [place] [address] PCP - General Family Medicine 11/21/15 documented as of this encounter
--- OUTSIDE RECORDS SUMMARY | 2025-01-03 08:57 | XMS_ITS | Encounter Summary ---
Author Organization [facility] Address [address] [facility] 7t [place] [address] Care Team Providers Care Canal Equipment Maintenance Supervisor Name Role Phone Sarah Verduzco DO Primary Care Provider + [phone] Reason for Visit * Reason Comments Med Refill Encounter Details Date Type Department Care Team ([facility] Contact Info) Description 12/19/2022 Refill [facility] MEDICINE 230 [place] [address] Sarah Verduzco DO 230 [place] [address] Social History Tobacco Use Types Packs/Day Years [...] 01/25/2025 10:30 AM EDT Office Visit [facility] OPTOMETRY [address] [place], [place] [phone] Cindy Meek, OD 230 [place] [address] 02/08/2025 10:00 AM EDT Clinical Support [facility] MED[facility]INE 230 [place] [address] Lauryn Cunningham RN documented as of this encounter Visit Diagnoses Not on filedocumented in this encounter Care Teams Canal Equipment Maintenance Supervisor Relationship Specialty Start Date End Date Sarah Verduzco DO [address] [place] [address] PCP - General Family Medicine 11/21/15 documented as of this encounter
--- OUTSIDE RECORDS SUMMARY | 2025-01-03 08:57 | XMS_ITS | Encounter Summary ---
Author Organization [employer] Address [address] 7[address] [place] [address] Care Team Providers Care Entertainment Musician Name Role Phone Sarah Verduzco DO Primary Care Provider + [phone] Encounter Details Date Type Department Care Team ([facility] st Contact Info) Description 07/27/2023 Telephone [facility] MEDICINE 230 [place], [place] [phone] Sarah Verduzco DO [address] [place], [place] [phone] Social History Tobacco Use Types Packs/Day Years [...] Description 01/25/2025 10:30 AM EDT Office Visit [facility] OPTOMETRY 267 [place], [place] [phone] Cindy Meek, OD 230 [place] [address] 02/08/2025 10:00 AM EDT Clinical Support [facility] MEDICINE 230 [place] [address] Lauryn Cunningham, LUISITO documented as of this encounter Visit Diagnoses Not on filedocumented in this encounter Additional Health Concerns Assessment Noted Time PHQ-9 Depression Total Score: 24 023 8:54 AM EDT documented as of this encounter Care Teams Entertainment Musician Relationship Specialty Start Date End Date Sarah Verduzco DO [address] [place] [address] PCP - General Family Medicine 11/21/15 documented as of this encounter
--- OUTSIDE RECORDS SUMMARY | 2025-01-03 08:57 | XMS_ITS | Encounter Summary ---
Author Organization [employer] Address [address] [facility] 7t [place] [address] Care Team Providers Care Training And Documentation Specialist Name Role Phone Sarah Verduzco DO Primary Care Provider + [phone] Reason for Visit * Reason Onset Date Comments Nurse Triage 07/20/2023 Encounter Details Date Type Department Care Team ([facility] st Contact Info) Description 07/20/2023 Telephone [facility] 230 [place], [place] [phone] Sarah Verduzco DO 230 [place], [place] [phone] Nurse Triage Social History Tobacco Use Types [...] juice Pt agrees. Advised to come to [facility] today to be seen by provider [...] accepted this outcome Please contact pt at [phone] documented in this encounter Plan of Treatment Upcoming Encounters Date Type Department Care Team (Late st Contact Info) Description 01/25/2025 10:30 AM EDT Office Visit [facility] OPTOMETRY [address] [place] [address] Cindy Meek, OD 230 [place] [address] 02/08/2025 10:00 AM EDT Clinical Support [facility] 230 [place], [place] [phone] Lauryn Cunningham RN documented as of this encounter Visit Diagnoses Not on filedocumented in this encounter Additional Health Concerns Assessment Noted Time PHQ-9 Depression Total Score: 24 023 8:54 AM EDT documented as of this encounter Care Teams Training And Documentation Specialist Relationship Specialty Start Date End Date Sarah Verduzco DO 230 [place], [place] [phone] PCP - General Family Medicine 11/21/15 documented as of this encounter
--- OUTSIDE RECORDS SUMMARY | 2025-01-03 08:57 | XMS_ITS | Encounter Summary ---
Author Organization [email or web address] Address [address] [facility] 7t [place] [address] Care Team Providers Care Rn Procedures Name Role Phone Sarah Verduzco DO Primary Care Provider + [phone] Reason for Visit * Reason Onset Date Comments Med Refill 10/20/2022 Encounter Details Date Type Department Care Team ([facility] st Contact Info) Description 10/20/2022 Telephone [facility] MEDICINE 230 [place], [place] [phone] Sarah Verduzco DO 230 [place], [place] [phone] Med Refill Social History Tobacco Use Types [...] Description 01/25/2025 10:30 AM EDT Office Visit [facility] OPTOMETRY [address] [place] [address] Cindy Meek, OD 230 [place] [address] 02/08/2025 10:00 AM EDT Clinical Support [facility] MEDICINE 230 [place] [address] Lauryn Cunningham, RN documented as of this encounter Visit Diagnoses Not on filedocumented in this encounter Care Teams Rn Procedures Relationship Specialty Start Date End Date Sarah Verduzco DO 230 [place] [address] PCP - General Family Medicine 11/21/15 documented as of this encounter
--- OUTSIDE RECORDS SUMMARY | 2025-01-03 08:57 | XMS_ITS | Encounter Summary ---
Author Organization [employer] Address [address] [facility] 7t [place] [address] Care Team Providers Care Power Saw Operator Name Role Phone Sarah Verduzco DO Primary Care Provider + [phone] Reason for Visit * Reason Comments Med Refill Encounter Details Date Type Department Care Team (Late Contact Info) Description 10/21/2022 Telephone [facility] MEDICINE 230 [place], [place] [phone] Sarah Verduzco DO 230 [place] [address] Med Refill Social History Tobacco Use Types [...] 01/25/2025 10:30 AM EDT Office Visit [facility] OPTOMETRY [address] [place] [address] Cindy Meek, OD 230 [place] [address] 02/08/2025 10:00 AM EDT Clinical Support [facility] MEDICINE 230 [place], [place] [phone] Lauryn Cunningham, LUISITO documented as of this encounter Visit Diagnoses Not on filedocumented in this encounter Care Teams Power Saw Operator Relationship Specialty Start Date End Date Sarah Verduzco DO 230 [place], [place] [phone] PCP - General Family Medicine 11/21/15 documented as of this encounter
--- OUTSIDE RECORDS SUMMARY | 2025-01-03 08:57 | XMS_ITS | Encounter Summary ---
Author Organization [employer] Address [address] [facility] 7t [place] [address] Care Team Providers Care Maintenance Craftsman Name Role Phone Sarah Verduzco DO Primary Care Provider + [phone] Reason for Visit * Reason Comments Med Refill Encounter Details Date Type Department Care Team ([facility] [address] Contact Info) Description 12/29/2024 Refill [facility] MEDICINE 230 [place], [place] [phone] Sarah Verduzco DO 230 [place], [place] [phone] Social History Tobacco Use Types Packs/Day Years [...] Description 01/25/2025 10:30 AM EDT Office Visit [facility] OPTOMET[facility] [address] [place] [address] Cindy Meek, OD 230 [place] [address] 02/08/2025 10:00 AM EDT Clinical Support [facility] 230 [place] [address] Lauryn Cunningham, LUISITO documented as of this encounter Visit Diagnoses Not on filedocumented in this encounter Additional Health Concerns Assessment Noted Time PHQ-9 Depression Total Score: 20 025 11:28 AM EST documented as of this encounter Care Teams Maintenance Craftsman Relationship Specialty Start Date End Date Sarah Verduzco DO 230 [place] [address] PCP - General Family Medicine 11/21/15 documented as of this encounter
--- OUTSIDE RECORDS SUMMARY | 2025-01-03 08:57 | XMS_ITS | Encounter Summary ---
Author Organization [facility] Address [address] [facility] [place] [place] [address] Care Team Providers Care Astrophysics Professor Name Role Phone Sarah Verduzco DO Primary Care Provider Aura Kramer MD Unavailable [phone] Mimi Newsome PA-C Unavailable [phone] Kaleb Tripathi PA-C Unavailable [phone] Encounter Details Date Type Department Care Team Description 08/13/2018 Refill [facility] [place] [address] [phone] Donita Lorenzo DScPAS Social History Tobacco Use Types Packs/Day Years Used Date Smoking Tobacco: Former Smokeless Tobacco: Never Sex Assigned at Date Recorded Not on file documented as of this encounter Plan of Treatment Not on file documented as of this encounter Visit Diagnoses Not on filedocumented in this encounter Care Teams Astrophysics Professor Relationship Specialty Start Date End Date Sarah Verduzco DO PCP - General Internal Medicine 02/09/18 Aura Pollock MD [address] [address] Surgeon Neurosurgery 12/09/21 Mimi Newsome PA-C [address] [address] Specialist Neurosurgery 12/09/21 Kaleb Tripathi PA-C [address] [address] Specialist Neurosurgery 12/09/21 documented as of this encounter
--- OUTSIDE RECORDS SUMMARY | 2025-01-03 08:57 | XMS_ITS | Encounter Summary ---
Author Organization [employer] Address [address] [facility] 7t [place] [address] Care Team Providers Care Grounds Manager Name Role Phone Sarah Verduzco DO Primary Care Provider + [phone] Reason for Visit * Reason Comments Med Refill Encounter Details Date Type Department Care Team ([facility] Contact Info) Description 08/20/2023 Refill [facility] MEDICINE 230 [place], [place] [phone] Sarah Verduzco DO 230 [place] [address] Chronic neck pain Social History Tobacco Use [...] 08/31/2023 11:48 AM EST Referral faxed for [employer]ICER services to , per provider request. documented in this encounter Plan of Treatment Upcoming Encounters Date Type Department Care Team (Late st Contact Info) Description 01/25/2025 10:30 AM EDT Office Visit [facility] OPTOMETRY [address] [place] [address] Fantasma, Cindy, OD 230 [place] [address] 02/08/2025 10:00 AM EDT Clinical Support [facility] MEDICINE 230 [place] [address] Lauryn Cunningham, RN documented as of this encounter Visit Diagnoses Diagnosis Chronic neck pain Cervicalgia documented in this encounter Additional Health Concerns Assessment Noted Time PHQ-9 Depression Total Score: 24 023 8:54 AM EDT documented as of this encounter Care Teams Grounds Manager Relationship Specialty Start Date End Date Sarah Verduzco DO 230 [place] [address] PCP - General Family Medicine 11/21/15 documented as of this encounter
--- OUTSIDE RECORDS SUMMARY | 2025-01-03 08:57 | XMS_ITS | Encounter Summary ---
Author Organization [employer] Address [address] [facility] 7t [place] [address] Care Team Providers Care Roller Repairer Name Role Phone Sarah Verduzco Primary Care Provider + [phone] Reason for Visit * Reason Comments Med Refill Encounter Details Date Type Department Care Team (Late Contact Info) Description 10/21/2022 Refill [facility] MEDICINE 230 [place] [address] Елена Olson MD 230 [place] [address] Sinusitis, unspecified chronicity, unspecified location Social History [...] Description 01/25/2025 10:30 AM EDT Office Visit [facility] OPTOMETRY [address] [place] [address] Cindy Meek, OD 230 [place] [address] 02/08/2025 10:00 AM EDT Clinical Support [facility] MEDICINE 230 [place] [address] Lauryn Cunningham RN documented as of this encounter Visit Diagnoses Diagnosis Sinusitis, unspecified chronicity, unspecified location documented in this encounter Care Teams Roller Repairer Relationship Specialty Start Date End Date Sarah Verduzco DO 230 [place] [address] PCP - General Family Medicine 11/21/15 documented as of this encounter
--- OUTSIDE RECORDS SUMMARY | 2025-01-03 08:57 | XMS_ITS | Encounter Summary ---
Author Organization [employer] Address [address] [facility] 7t [place] [address] Care Team Providers Care Fowl Blood Tester Name Role Phone Sarah Verduzco DO Primary Care Provider + [phone] Reason for Visit * Reason Comments Med Refill Encounter Details Date Type Department Care Team (Late Contact Info) Description 02/06/2023 Refill [facility] MEDICINE 230 [place], [place] [phone] Sarah Verduzco DO 230 [place] [address] Chronic GERD Social History Tobacco Use Types [...] Upcoming Encounters Date Type Department Care Team ([facility] Contact Info) Description 01/25/2025 10:30 AM EDT Office Visit [facility] OPTOMETRY [address] [place] [address] Cindy Meek, OD 230 [place], [place] [phone] 02/08/2025 10:00 AM EDT Clinical Support [facility] MEDICINE 230 [place], [place] [phone] Lauryn Cunningham RN documented as of this encounter Visit Diagnoses Diagnosis Chronic GERD documented in this encounter Additional Health Concerns Assessment Noted Time PHQ-9 Depression Total Score: 16 023 10:36 AM EDT documented as of this encounter Care Teams Fowl Blood Tester Relationship Specialty Start Date End Date Sarah Verduzco DO 230 [place], [place] [phone] PCP - General Family Medicine 11/21/15 documented as of this encounter
--- OUTSIDE RECORDS SUMMARY | 2025-01-03 08:57 | XMS_ITS | Encounter Summary ---
Author Organization [facility] Address [address] [facility] 7t [place] [address] Care Team Providers Care Wide Piece Goods Inspector Name Role Phone Sarah Verduzco DO Primary Care Provider + [phone] Encounter Details Date Type Department Care Team (Late Contact Info) Description 12/24/2022 Orders Only [facility] MEDICINE [address] [place] [address] Sarah Verduzco DO 230 [place] [address] Social History Tobacco Use Types Packs/Day Years [...] 10:30 AM EDT Office Visit [facility] OPTOMETRY [address] [place] [address] Cindy Meek, OD 230 [place] [address] 02/08/2025 10:00 AM EDT Clinical Support [facility] MEDICINE 230 [place] [address] Lauryn Cunningham RN documented as of this encounter Visit Diagnoses Not on filedocumented in this encounter Care Teams Wide Piece Goods Inspector Relationship Specialty Start Date End Date Sarah Verduzco DO 230 [place] [address] PCP - General Family Medicine 11/21/15 documented as of this encounter
--- OUTSIDE RECORDS SUMMARY | 2025-01-03 08:58 | XMS_ITS | Encounter Summary ---
Author Organization [employer] Address [address] [facility] 7t [place] [address] Care Team Providers Care Mobile Lounge Driver Name Role Phone Sarah Verduzco DO Primary Care Provider + [phone] Reason for Visit * Reason Comments Med Refill Encounter Details Date Type Department Care Team ([facility] Contact Info) Description 06/20/2023 Refill [facility] MEDICINE 230 [place], [place] [phone] Sarah Verduzco DO 230 [place] [address] Chronic neck pain Social History Tobacco Use [...] Visit [facility] OPTOMETRY [address] [place], [place] [phone] Fantasma, Cindy, OD 230 [place] [address] 02/08/2025 10:00 AM EDT Clinical Support [facility] MEDICINE 230 [place] [address] Lauryn Cunningham, LUISITO documented as of this encounter Visit Diagnoses Diagnosis Chronic neck pain Cervicalgia documented in this encounter Additional Health Concerns Assessment Noted Time PHQ-9 Depression Total Score: 24 023 8:54 AM EDT documented as of this encounter Care Teams Mobile Lounge Driver Relationship Specialty Start Date End Date Sarah Verduzco DO 230 [place] [address] PCP - General Family Medicine 11/21/15 documented as of this encounter
--- OUTSIDE RECORDS SUMMARY | 2025-01-03 08:58 | XMS_ITS | Encounter Summary ---
Author Organization [employer] Address [address] [facility] 7t [place] [address] Care Team Providers Care Trust Clerk Name Role Phone Sarah Verduzco DO Primary Care Provider + [phone] Reason for Visit * Reason Onset Date Comments Med Refill 03/20/2023 Encounter Details Date Type Department Care Team (Late st Contact Info) Description 03/20/2023 Telephone [facility] 230 [place], [place] [phone] Sarah Verduzco DO 230 [place], [place] [phone] Med Refill Social History Tobacco Use Types [...] 50 mg tablet to be sent to [facility]/pharmacy #[id number] -[place], [place] - [address] documented in this encounter Plan of Treatment Upcoming Encounters Date Type Department Care Team (Late st Contact Info) Description 01/25/2025 10:30 AM EDT Office Visit [facility] [address] [place] [address] Cindy Meek, OD 230 [place], [place] [phone] 02/08/2025 10:00 AM EDT Clinical Support [facility] 230 [place], [place] [phone] Lauryn Cunningham RN documented as of this encounter Visit Diagnoses Not on filedocumented in this encounter Additional Health Concerns Assessment Noted Time PHQ-9 Depression Total Score: 16 023 10:36 AM EDT documented as of this encounter Care Teams Trust Clerk Relationship Specialty Start Date End Date Sarah Verduzco DO 230 [place], [place] [phone] PCP - General Family Medicine 11/21/15 documented as of this encounter
--- OUTSIDE RECORDS SUMMARY | 2025-01-03 08:58 | XMS_ITS | Encounter Summary ---
Author Organization [employer] Address [address] [facility] 7t [place] [address] Care Team Providers Care Grey Goods Tester Name Role Phone Sarah Verduzco DO Primary Care Provider + [phone] Reason for Visit * Reason Comments Med Refill Encounter Details Date Type Department Care Team ([facility] Contact Info) Description 01/29/2024 Refill [facility] MEDICINE 230 [place], [place] [phone] Sarah Verduzco DO 230 [place], [place] [phone] Social History Tobacco Use Types Packs/Day Years [...] Description 01/25/2025 10:30 AM EDT Office Visit [facility] OPTOMETRY [address] [place], [place] [phone] Fantasma, Cindy, OD 230 [place] [address] 02/08/2025 10:00 AM EDT Clinical Support [facility] MEDICINE 230 [place] [address] Lauryn Cunningham, LUISITO documented as of this encounter Visit Diagnoses Not on filedocumented in this encounter Additional Health Concerns Assessment Noted Time PHQ-9 Depression Total Score: 24 023 8:54 AM EDT documented as of this encounter Care Teams Grey Goods Tester Relationship Specialty Start Date End Date Sarah Verduzco DO 230 [place] [address] PCP - General Family Medicine 11/21/15 documented as of this encounter
--- OUTSIDE RECORDS SUMMARY | 2025-01-03 08:58 | XMS_ITS | Data Portability ---
Author Organization [employer] [facility], [place] - [facility] Address [address] [place] [address] Care Team Providers Care Automation Engineering Manager Name Role Phone [facility] Referring Provider Assessment Encounter Date Assessment Date Assessment LastModified by Organization Details LastModified Time 03/18/2023 03/18/2023 I provided real -time medical direction via phone for this encounter, and was available for additional phone based assistance as needed. I have reviewed and agree with the Assessment and Plan as documented by the Driver Guard. Patient given the opportunity to ask questions. Advised if develops CP/severe SOB/turning blue/uncontrolle d pain in flank/ abd or uncontrolled n/v/d or black/bloody emesis or stool/ AMS/ syncope/ hi fever unresponsive to APAP to call 911- advised close f/u with pcp and urology -verbalized understanding of instructions to the medic [email or web address] Not available 03/18/2023 12:04:35 Plan of Treatment Reminders Order Date Submit Date Provider Last Modified By Organization Details Last Modified Time Details Appointments None recorded. Lab rapid SARS CoV 2 Ag, QL IA, respiratory specimen 2023 024 [email or web address] [facility], [address] [place] [address], [id number] 4 18:19:53 rapid flu (A+B) 2023 024 [email or web address] [facility], [address] [place] [address], [id number] 4 18:19:51 culture, urine 2022 023 REINALDO [facility] (Centralized Electronic Ordering - All Locations), Patient Can Go To The Location Of Their Choice, [address] 3 15:12:44 urinalysis, dipstick 2022 023 [email or web address] 0 [facility], [address] [place] [address], [id number] 3 17:08:56 rapid SARS CoV 2 Ag, QL IA, respiratory specimen 2022 023 [email or web address] 0 [facility], [address] [place] [address], [id number] 3 12:05:04 rapid flu (A+B) 2022 023 [email or web address] 0 [facility], [address] [place] [address], [id number] 3 12:05:04 Referral None recorded. Procedures None recorded. Surgeries None recorded. Imaging None recorded. Medication Orders Valtrex 1 gram tablet 2023 024 [facility][id number], [address] [place], [address], 4 18:10:29 Bactrim DS 800 mg-160 mg tablet 2022 023 [email or web address] 0 Not available 3 11:58:51 Bactrim DS 800 mg-160 mg tablet 2022 023 [facility] #[id number], [address] [place], [address], 3 12:01:26 Patient TargetsNo targets recorded. Patient [...] Leukocytes 3+ Not Available [facility] [address] [place] [address], [address] 03/18/2023 12:05:18 03/18/20 23 03/18/2023 urina lysis , dipst ick Nitrite negati ve Not Available [facility] [address] [place] [address], [id number] 03/18/2023 12:05:18 03/18/20 23 03/18/2023 urina lysis , dipst ick Urobilinogen neg Not Available [facility] [address] [place] [address], [address] 03/18/2023 12:05:18 03/18/20 23 03/18/2023 urina lysis , dipst ick Protein trace Not Available [facility] - [facility] [address] [place] [address], [place], [address] 03/18/2023 12:05:18 03/18/20 23 03/18/2023 urina lysis , dipst ick pH 6 Not Available Main - [facility] [address], [address] 03/18/2023 12:05:18 03/18/20 23 03/18/2023 urina lysis , dipst ick Blood 4+ Not Available Main - [facility] [address], [address] 03/18/2023 12:05:18 03/18/20 23 03/18/2023 urina lysis , dipst ick Specific [place] 1.025 Not Available [facility] [address] [place] [address], [address] 03/18/2023 12:05:18 03/18/20 23 03/18/2023 urina lysis , dipst ick Ketone neg Not Available Main - [facility] [address], [address] 03/18/2023 12:05:18 03/18/20 23 03/18/2023 urina lysis , dipst ick Bilirubin trace Not Available Main - [facility] [address] [place] [address], [address] 03/18/2023 12:05:18 03/18/20 23 03/18/2023 urina lysis , dipst ick Glucose neg Not Available Main - [facility] [address], [address] 03/18/2023 12:05:18 03/18/20 23 03/18/2023 urina lysis , dipst ick Appearance clear Not Available [facility] [address] [place] [address], [address] 03/18/2023 12:05:18 03/18/20 23 03/18/2023 urina lysis , dipst ick Color light yellow Not Available [facility] [address] [place] [address], [address] 03/18/2023 12:05:18 03/18/20 23 03/18/2023 rapid flu (A+B) Flu negati ve Not Available [facility] [address] [place] [address], [address] 03/18/2023 12:04:44 03/18/20 03/18/2023 rapid SARS CoV 2 Ag, QL IA, respi rator y speci men rapid SARS CoV 2 Ag, QL IA, respiratory specimen negati ve Not Available [facility] ed [address] [place] [address], [address] 03/18/2023 12:04:39 11/03/19 24 11/03/2023 rapid flu (A+B) Flu negati ve Not Available [facility] ed [address] [place] [address], [address] 11/03/2023 18:19:38 11/03/19 24 11/03/2023 rapid SARS CoV 2 Ag, QL IA, respi rator y speci men rapid SARS CoV 2 Ag, QL IA, respiratory specimen negati ve Not Available [address], [address] 11/03/2023 18:19:30 Result Notes None recorded. Medical [...] Not available Not available Not available 03/18/2023 [id number] 2003 SNOMED Kristyn Paredes MD [address] [place] [address],[address], [place], [address] [facility] 3 11:50:26 Medications Name Sig [...] /min 101 mm[Hg] 73 mm[Hg] Not Available [facility] 3 11:45:05 Date Recorded Body weight Provider Name an d Address Organization Details Last Updated DateTime 03/18/2023 65358.53 g Sonal Guthrie [address] [place] [address],[address], [place], [address], [place] - [facility] 03/18/2023 17:03:15 Date Recorded Heart rate Body height Oxygen saturation Oxygen saturation in Arterial blood by Pulse oximetry Body weight Body temperature Respiratory rate Systolic blood pressure Diastolic blood pressure Provider Name and Address Organization Details Last Updated DateTime 4 67 /min 149.86 cm 96 % 96 % 57799.0 4 g 98.5 [degF] 18 /min 106 mm[Hg] 74 mm[Hg] Not Available [facility] 4 18:02:40 Social History None recorded. Functional Status None recorded. Mental Status None recorded. Family History Nothing Reported. Medical History No medical history recorded. Gynecological HistoryNo gynecological history recorded. Obstetrics History GPAL:G 0 P 0 0 0 0 Past Encounters Encounter ID Performer Location Encounter Start Date Encounter Closed Date Diagnosis/Indication Diagnosis SNOMED-CT Code Diagnosis ICD10 Code Diagnosis Note [id number] Kristyn Paredes MD [facility] [address] [place] [address] 03/18/2023 11:44:55 03/19/2023 10:13:17 Viral upper respiratory tract infection 411124432 J06.9 Advised if has eye s/s - redness/ d/c or visual changes pls call ophthalmol ogy eliazar/ continue claritin and fluticason e daily- Urinary symptoms 7705588 08 R39.9 has recurrent UTI but other [...] GAEL FIELDS MD Main - [facility] [address] [place] [address] 11/03/2023 18:02:26 11/04/2023 12:39:09 Herpes labialis 5497281 B00.1 Evaluation in the field was performed by my hearing officer colleague, as noted above, I provided real-time [...] Mccollum Member ID Guarantor Name 03/18/2023 1 [facility] - DOS ON OR AFTER 2022 - DUAL ELIGIBLE - [facility] OPTIONS AND ONE CARE (MEDICARE REPLACEMENT/ADV ANTAGE - HMO) Miryam Fan [id number] Miryam Fan 11/03/2023 1 [facility] - DOS ON OR AFTER 2022 - DUAL ELIGIBLE - [facility] OPTIONS AND ONE CARE (MEDICARE REPLACEMENT/ADV ANTAGE - HMO) Miryam Fan [id number] Miryam Fan Notes Date Note Type Note [...] .................. .................. .................. .................. .................. .................. ............... Driver Guard Note From Courtney Gomez: On License Of [facility] Driver Guard Damaso Jason CCA1 [place] for a 57 yof C/O sinus pain/pressure. [...] urine appeared abnormal. Urine dip in [facility]. [facility] consulted; pt was given 800 mg bactrim PO, and urine sample was brought to [facility] laboratory for culture. She was instructed to [...] was given ( no prior visits in [place] ) but has had bactrim in the past without problems. She reports Temp 101 this am took 1 gram Tylenol- no afebrile Kristyn Paredes MD [address] [facility],[address], [place], [address], [employer] 03/18/2023 17:09:19 11/03/2023 text/html HPI: Hx GERD, Anxiety, cervical deg. disc disease. .................. .................. .................. .................. .................. .................. .................. ............... [facility] Nurse Triage Notes (Fiona Nieves): Comments: HPI reviewed. No additional information needed to process .................. .................. .................. .................. .................. .................. .................. ............... Driver Guard Note From Rubi Hoffman: Sent to a [...] covid test: neg; Rapid flu test: neg; [facility] consulted and pt advised it seems lesions are cold sores. [facility] sends script to pt's pharmacy. Pt advised she should drink lots of fluid, take Tylenol for pain, and pt should start seeing improvement in 48hrs. Red flags discussed. Pt has no further questions. .................. .................. .................. .................. .................. .................. .................. ............... Disposition: Fulfilled GAEL FIELDS MD [address] [facility],[address], [place], [address], [employer] 11/03/2023 22:21:59 OBGyn Episode No OBEpisode recorded.
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
--- OUTSIDE RECORDS SUMMARY | 2025-01-03 08:58 | XMS_ITS | Encounter Summary ---
Author Organization [employer] Address [address] [facility] 7t [place] [address] Care Team Providers Care Agriculture Internship Name Role Phone Sarah Verduzco DO Primary Care Provider [phone] Reason for Visit * Reason Onset Date Comments Medication Question 03/24/2023 Encounter Details Date Type Department Care Team ([facility] Contact Info) Description 03/24/2023 Telephone [facility] MEDICINE [address] [place], [place] [phone] Sarah Verduzco DO [address] [place], [place] [phone] Medication Question Social History Tobacco Use Types [...] used to receive. Please contact pt at [phone] documented in this encounter Plan of Treatment Upcoming Encounters Date Type Department Care Team (Late st Contact Info) Description 01/25/2025 10:30 AM EDT Office Visit [facility] OPTOMETRY [address] [place] [address] Cindy Meek, OD [address] [place] [address] 02/08/2025 10:00 AM EDT Clinical Support [facility] MEDICINE [address] [place] [address] Lauryn Cunningham RN documented as of this encounter Visit Diagnoses Not on filedocumented in this encounter Additional Health Concerns Assessment Noted Time PHQ-9 Depression Total Score: 16 023 10:36 AM EDT documented as of this encounter Care Teams Agriculture Internship Relationship Specialty Start Date End Date Sarah Verduzco DO [address] [place] [address] PCP - General Family Medicine 11/21/15 documented as of this encounter
--- OUTSIDE RECORDS SUMMARY | 2025-01-03 08:58 | XMS_ITS | Encounter Summary ---
Author Organization [facility] Address [address] [facility] [place] [place] [address] Care Team Providers Care Online Program Coordinator Name Role Phone Sarah Verduzco DO Primary Care Provider Aura Kramer MD Unavailable [phone] Mimi Newsome PA-C Unavailable [phone] Kaleb Tripathi PA-C Unavailable [phone] Encounter Details Date Type Department Care Team Description 12/20/2021 Release of Information Medical Records [address] [place] [id number] Abstract, Provider Social History Tobacco Use Types [...] on filedocumented in this encounter Care Teams Online Program Coordinator Relationship Specialty Start Date End Date Sarah Verduzco DO PCP - General Internal Medicine 02/09/18 Aura Pollock MD [address] [facility] [address] [place] [address] Surgeon Neurosurgery 12/09/21 Mimi Newsome PA-C [address] [address] Specialist Neurosurgery 12/09/21 Kaleb Tripathi PA-C 175 [facility] [address] [place] [address] Specialist Neurosurgery 12/09/21 documented as of this encounter
--- OUTSIDE RECORDS SUMMARY | 2025-01-03 08:58 | XMS_ITS | Encounter Summary ---
Author Organization [facility] Address [address] [facility] [place] [address] Care Team Providers Care Distribution District Supervisor Name Role Phone Sarah Verduzco DO Primary Care Provider Aura Kramer MD Unavailable [phone] Mimi Newsome PA-C Unavailable [phone] Kaleb Tripathi PA-C Unavailable [phone] Encounter Details Date Type Department Care Team Description 12/17/2021 SCAN [facility] Medical [facility] Neurosurgery [place] [address] [address] Kaleb Tripathi PA-C [address] [phone] Social History Tobacco Use Types Packs/Day Years [...] on filedocumented in this encounter Care Teams Distribution District Supervisor Relationship Specialty Start Date End Date Sarah Verduzco DO PCP - General Internal Medicine 02/09/18 Aura Pollock MD [address] [phone] Surgeon Neurosurgery 12/09/21 Mimi Newsome PA-C 175 [facility] [address] [place] [address] Specialist Neurosurgery 12/09/21 Kaleb Tripathi PA-C 175 [facility] [address] [place] [address] Specialist Neurosurgery 12/09/21 documented as of this encounter
--- OUTSIDE RECORDS SUMMARY | 2025-01-03 08:58 | XMS_ITS | Encounter Summary ---
Author Organization [employer] [facility] Address [address] [facility] 7t [place] [address] Care Team Providers Care Wash Crew Person Name Role Phone Sarah Verduzco DO Primary Care Provider [phone] Reason for Visit * Reason Comments Med Refill Encounter Details Date Type Department Care Team ([facility] Contact Info) Description 12/04/2022 Refill [facility] MEDICINE [address] [place] [address] Sarah Verduzco DO [address] [place] [address] Social History Tobacco Use Types Packs/Day Years [...] [facility] [address] [place], [place] [phone] Cindy Meek, OD [address] [place] [address] 02/08/2025 10:00 AM EDT Clinical Support [facility] MEDICINE [address] [place] [address] Lauryn Cunningham RN documented as of this encounter Visit Diagnoses Not on filedocumented in this encounter Care Teams Wash Crew Person Relationship Specialty Start Date End Date Sarah Verduzco DO [address] [place] [address] PCP - General Family Medicine 11/21/15 documented as of this encounter
--- OUTSIDE RECORDS SUMMARY | 2025-01-03 08:58 | XMS_ITS | Encounter Summary ---
Author Organization [employer] Address [address] [facility] [address] [place] [address] Care Team Providers Care Director Medical Surgical Name Role Phone DaxSarah Primary Care Provider + [phone] Encounter Details Date Type Department Care Team (Late st Contact Info) Description 12/22/2023 Orders Only [facility] MEDICINE [address] [place] [address] ProviderTristan MD Social History Tobacco Use Types [...] [facility] [address] [place], [place] [phone] Fantasma, Cindy, OD [address] [place] [address] 02/08/2025 10:00 AM EDT Clinical Support [facility] MEDICINE [address] [place], [place] [phone] Lauryn Cunningham RN documented as of this [...] as of this encounter Care Teams Director Medical Surgical Relationship Specialty Start Date End Date Sarah Verduzco DO [address] [place], [place] [phone] PCP - General Family Medicine 11/21/15 documented as of this encounter
--- OUTSIDE RECORDS SUMMARY | 2025-01-03 08:58 | XMS_ITS | Encounter Summary ---
Author Organization [employer] Address [address] [facility] [address]t [place] [address] Care Team Providers Care Inner Tube Inserter Name Role Phone Sarah Verduzco DO Primary Care Provider [phone] Reason for Visit * Reason Comments Med Refill Encounter Details Date Type Department Care Team ([facility] Contact Info) Description 03/31/2024 Refill [facility] MED[facility]INE [address] [place], [place] [phone] Sarah Verduzco DO [address] [place], [place] [phone] Social History Tobacco Use Types Packs/Day Years [...] Description 01/25/2025 10:30 AM EDT Office Visit [facility] OPTOMETRY [address] [place], [place] [phone] Fantasma, Cindy, OD [address] [place] [address] 02/08/2025 10:00 AM EDT Clinical Support [facility] MEDICINE [address] [place] [address] Lauryn Cunningham, LUISITO documented as of this encounter Visit Diagnoses Not on filedocumented in this encounter Additional Health Concerns Assessment Noted Time PHQ-9 Depression Total Score: 24 023 8:54 AM EDT documented as of this encounter Care Teams Inner Tube Inserter Relationship Specialty Start Date End Date Sarah Verduzco DO [address] [place] [address] PCP - General Family Medicine 11/21/15 documented as of this encounter
--- OUTSIDE RECORDS SUMMARY | 2025-01-03 08:58 | XMS_ITS | Encounter Summary ---
Author Organization [facility] Address [address] [facility] [place] [address] Care Team Providers Care Transmitter Supervisor Name Role Phone Sheila Eubanks MD Primary Care Provider Michael Thapa, Pcp Primary Care Provider Sarah Mckay DO Primary Care Provider Unava Aura Edmondson MD Unavailable [phone] Mimi Newsome PA-C Unavailable [phone] Kaleb Tripathi PA-C Unavailable [phone] Encounter Details Date Type Department Care Team Description 09/11/2017 Transfer Records Medical Records [address] [place] [address] Abstract, Provider Social History Tobacco Use Types Packs/Day Years Used Date Smoking Tobacco: Former Smokeless Tobacco: Never Sex Assigned at Date Recorded Not on file documented as of this encounter Plan of Treatment Not on file documented as of this encounter Visit Diagnoses Not on filedocumented in this encounter Care Teams Transmitter Supervisor Relationship Specialty Start Date End Date Sheila Eubanks MD PCP - General Internal Medicine 05/28/17 01/21/18 Elier, Babar PCP - General Internal Medicine 01/22/18 02/08/18 Sarah Verduzco DO PCP - General Internal Medicine 02/09/18 Aura Pollock MD [address] [phone] Surgeon Neurosurgery 12/09/21 Mimi Newsome PA-C [address] [address] Specialist Neurosurgery 12/09/21 Kaleb Tripathi PA-C 175 [facility] [address] [place] [address] Specialist Neurosurgery 12/09/21 documented as of this encounter
--- OUTSIDE RECORDS SUMMARY | 2025-01-03 08:58 | XMS_ITS | Encounter Summary ---
Author Organization [employer] Address [address] [facility] 7t [place] [address] Care Team Providers Care Assistant Floor Covering Printer Name Role Phone Sarah Verduzco DO Primary Care Provider + [phone] Reason for Visit * Reason Onset Date Comments Appointment Request 04/04/2024 Encounter Details Date Type Department Care Team ([facility] Contact Info) Description 04/04/2024 Telephone [facility] MEDICINE [address] [place], [place] [phone] Sarah Verduzco DO [address] [place], [place] [phone] Appointment Request Social History Tobacco Use Types [...] management appt 04/05. Please contact pt at [phone]. documented in this encounter Plan of Treatment Upcoming Encounters Date Type Department Care Team (Late st Contact Info) Description 01/25/2025 10:30 AM EDT Office Visit [facility] OPTOMETRY [address] [place], [place] [phone] Cindy Meek, OD [address] [place] [address] 02/08/2025 10:00 AM EDT Clinical Support [facility] MEDICINE [address] [place] [address] Lauryn Cunningham, LUISITO documented as of this encounter Visit Diagnoses Not on filedocumented in this encounter Additional Health Concerns Assessment Noted Time PHQ-9 Depression Total Score: 24 023 8:54 AM EDT documented as of this encounter Care Teams Assistant Floor Covering Printer Relationship Specialty Start Date End Date Sarah Verduzco DO [address] [place] [address] PCP - General Family Medicine 11/21/15 documented as of this encounter
--- OUTSIDE RECORDS SUMMARY | 2025-01-03 08:58 | XMS_ITS | Encounter Summary ---
Author Organization [email or web address] Address 75 [facility] 7t [place] [address] Care Team Providers Care Software Configuration Manager Name Role Phone Sarah Verduzco DO Primary Care Provider + [phone] Reason for Visit * Reason Comments Med Refill Encounter Details Date Type Department Care Team ([facility] Contact Info) Description 01/05/2024 Refill [facility] MEDICINE [address] [place], [place] [phone] Sarah Verduzco DO 230 [place], [place] [phone] Social History Tobacco Use Types Packs/Day Years [...] Description 01/25/2025 10:30 AM EDT Office Visit [facility] OPTOMETRY [address] [place], [place] [phone] Fantasma, Cindy, OD [address] [place] [address] 02/08/2025 10:00 AM EDT Clinical Support [facility] MEDICINE [address] [place] [address] Lauryn Cunningham, LUISITO documented as of this encounter Visit Diagnoses Not on filedocumented in this encounter Additional Health Concerns Assessment Noted Time PHQ-9 Depression Total Score: 24 023 8:54 AM EDT documented as of this encounter Care Teams Software Configuration Manager Relationship Specialty Start Date End Date Sarah Verduzco DO 230 [place] [address] PCP - General Family Medicine 11/21/15 documented as of this encounter
--- OUTSIDE RECORDS SUMMARY | 2025-01-03 08:58 | XMS_ITS | Encounter Summary ---
Author Organization [employer] Address 75 [facility] 7t [place] [address] Care Team Providers Care Pest Control Operator Name Role Phone Sarah Verduzco DO Primary Care Provider + [phone] Reason for Visit * Reason Onset Date Comments Appointment Request 08/22/2024 Encounter Details Date Type Department Care Team ([facility] Contact Info) Description 08/22/2024 Telephone [facility] MEDICINE 230 [place], [place] [phone] Sarah Verduzco DO 230 [place], [place] [phone] Appointment Request Social History Tobacco Use Types [...] DME RX Contact: Jerry, On behalf of [facility]'s Care Management staff [facility], we are requesting Durable Medical Equipment (DME) for the pt .I can facilitate the ordering process through our approved vendor (such as [employer], [employer], etc.), but a prescription for the DME item(s) is needed. The DME item(s)requested are - Shower chair - Cane Kindly send the prescriptions to ([email or web address]) for processing the DME referral on behalf of the patient. Please also provide the patient's current Height and Weight. Should you have any inquiries regarding this request, feel free to contact me [phone]. Thank you for your assistance in this matter. * Telephone Encounter - rPiya Fritz RN - 09/01/2024 10:02 AM EST ----- Message from Lisa Kenny sent at 08/31/2024 3:20 PM EST ----- Regarding: DME RX Contact: Jerry, On behalf of [facility]'s Care Management staff [facility]/[employer], we are requesting Durable Medical Equipment (DME) for the pt .I can facilitate the ordering process through our approved vendor (such as [employer], [employer], etc.), but a prescription for the DME item(s) is needed. The DME item(s)requested are - Shower chair - Cane Kindly send the prescriptions to ([email or web address]) for processing the DME referral on behalf of the patient. Please also provide the patient's current Height and Weight. Should you have any inquiries regarding this request, feel free to contact me [phone]. Thank you for your assistance in this matter. * Telephone Encounter - Thuy Nails - 08/22/2024 11:20 AM EST Tc from pt requesting to r/s pain management appointment from 08/23. Contact pt at [phone] documented in this encounter Plan of Treatment Upcoming Encounters Date Type Department Care Team (Late st Contact Info) Description 01/25/2025 10:30 AM EDT Office Visit [facility] OPTOMETRY [address] [place] [address] Cindy Meek, OD 230 [place] [address] 02/08/2025 10:00 AM EDT Clinical Support [facility] MEDICINE 230 [place] [address] Lauryn Cunningham, RN documented as of this encounter Visit Diagnoses Not on filedocumented in this encounter Additional Health Concerns Assessment Noted Time PHQ-9 Depression Total Score: 11 024 10:42 AM EDT documented as of this encounter Care Teams Pest Control Operator Relationship Specialty Start Date End Date Sarah Verduzco DO 230 [place] [address] PCP - General Family Medicine 11/21/15 documented as of this encounter
--- OUTSIDE RECORDS SUMMARY | 2025-01-03 08:58 | XMS_ITS | Clinical Summary ---
Author Organization [employer] Address 75 [facility] 7t [place] [address] Care Team Providers Care Cap Coverer Name Role Phone DellaSarah mills Primary Care Provider + [phone] Allergies Active Allergy Reactions Criticality Noted Date [...] opioids 07/07/2024 Overview (07/07/2024): Dx: Rx: Last FOREX TRADER agreement: Tier II (visit every 3 months) [...] She request prescription to be send to [facility] pharmacy due to not being covered at [facility]. 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 Overweight (BMI 25.0-29.9) 11/21/2015 0 01/27/2023 Encounters Date Type Department Care Team Description 12/29/2024 Orders Only [facility] External Provider, [facility] 12/29/2024 Refill [facility] MEDICINE 230 [place] [address] Sarah Verduzco DO 2024 Refill [facility] MEDICINE 230 [place] [address] Sarah Verduzco DO Chronic bilateral low back pain with left-sided sciatica 12/06/2024 Refill [facility] MEDICINE [address] [place] [address] Sarah Verduzco DO 11/28/2024 Refill [facility] MEDICINE [address] [place] [address] Sarah Verduzco DO Chronic nonintractable headache, unspecified headache type; Melasma 11/28/2024 Refill [facility] MEDICINE [address] [place] [address] Sarah Verduzco DO Chronic bilateral low back pain with left-sided sciatica 11/22/2024 Refill [facility] [place] [address] Sarah Verduzco DO 11/14/2024 11:15 AM EST Office Visit [facility] [place] [address] Sarah Verduzco DO Major depression, recurrent, chronic [...] Travel 11/07/2024 1:30 PM EST Clinical Support [facility] [place] [address] Lauryn Cunningham carpet measurer neck pain (Primary Dx) 11/07/2024 Telephone [facility] [place] [address] Lauryn Cunningham, RN FOREX TRADER Renewal today 11/07/2024 Travel 11/07/2024 Telephone [facility] [place] [address] Lauryn Cunningham RN Recommend FOREX TRADER Tier 2 10/31/2024 Refill [facility] [place] [address] Sarah Verduzco DO Chronic nonintractable headache, unspecified headache type 10/27/2024 Orders Only [facility] [place] [address] Laurent Tatum ANP Fascial defect (Primary Dx) 10/24/2024 Refill [facility] MEDICINE [address] [place] [address] Sarah Verduzco DO Chronic bilateral low back pain with left-sided sciatica 10/24/2024 Telephone [facility] MEDICINE [address] [place] [address] Sarah Verduzco DO Appointment Request 10/22/2024 Refill [facility] MEDICINE [address] [place] [address] Sarah Verduzco DO 10/06/2024 Refill [facility] MEDICINE [address] [place] [address] Sarah Verduzco, 10/05/2024 Refill [facility] MEDICINE [address] [place] [address] Sarah Verduzco DO from Last 3 Months [...] Description 01/25/2025 10:30 AM EDT Office Visit [facility] OPTOMETRY [address] [place] [address] Cindy Meek, OD [address] [place] [address] 02/08/2025 10:00 AM EDT Clinical Support [facility] MEDICINE 230 [place] [address] Lauryn Cunningham, RN Health Maintenance Due Date [...] WO CONTRAST Routine 12/30/2024 8:24 AM EDT POCT NEREYDA-14 URINE DRUG SCREEN Routine 11/07/2024 [...] Recently Relevant to Health Maintenance Results * CT Pelvis w/o Contrast (12/30/2024 8:24 AM EDT) Anatomical Region Laterality Modality Body, Pelvis Computed Tomogra phy 12/30/2024 8:24 AM EDT Narrative 12/30/2024 8:25 AM EDT ? [facility] ?[address] ?[place] [address] ? CT Scan Report ? Signed ? Patient: Fan,Miryam ?MR#: [id number] ?? 06 ? : 1965 ?Acct:[id number] ? Age/Sex: 59 / F ?ADM Date: 12/29/24 ? Loc: HO.CT ? Attending Dr: Hardik Jiang MD ? Ordering Physician: Hardik Jiang MD ?? Date of Service: 12/29/24 ?? Procedure(s): CT pelvis wo IV con ?? Accession Number(s): [id number] ? cc: Sarah Verduzco DO; Hardik Jiang MD ? Report Number: ?? [id number]: Total DLP = ??510.00 mGy-cm ? CLINICAL [...] ? DD/ 3 ? TD/TT: 12/30/24823 ? Coper Hand: ? Procedure Note Jamie, Image - 12/30/[address] [address] [address] Scan Report Signed Patient: Marco Fan#: [id number] 06 : 1965Acct:[id number] Age/Sex: 59 / FADM Date: 12/29/24 Loc: HO.CT Attending Dr: Hardik Jiang MD Ordering Physician: Hardik Jiang MD Date of Service: 12/29/24 Procedure(s): CT pelvis wo IV con Accession Number(s): [id number] cc: Sarah Verduzco DO; Hardik Jiang MD Report Number: [id number]: Total DLP = 510.00 mGy-cm CLINICAL HISTORY: [...] in OV> 12/30/24824 DD/ 3 TD/TT: 12/30/24823 Coper Hand: [facility] External Provider IMG CT PROCEDURES Edited Result - Final * POCT NEREYDA-14 Urine Drug Screen (11/07/2024 2:06 PM EST) Oxycodone Screen, Urine Positive Urine Urine specimen obtained by clean catch procedure / Unknown 11/07/2024 2:06 PM EST Narrative Lauryn Cunningham RN - 11/07/2024 2:06 PM EST UTOX cup Lot#[id number] Exp. 05/03/26 Internal Pass Control Sarah Verduzco DO POINT OF CARE TEST ENTER/DAVID T ORDERABLES Final Result * US Pelvis Limited (10/27/2024 1:01 PM EST) Anatomical Region Laterality Modality Pelvis Ultrasound 10/27/2024 1:01 PM EST Narrative 10/27/2024 1:01 PM EST ? [facility] ?[address] ?[place] [address] ? Ultrasound Report ? Signed ? Patient: Fan,Miryam ?MR#: [id number] ?? 06 ? : 1965 ?Acct:[id number] ? Age/Sex: 58 / F ?ADM Date: 10/27/24 ? Loc: HO.US ? Attending Dr: Laurent Tatum PARIMUTUEL CASHIER ? Ordering Physician: LAURENT TATUM NP ?? Date of Service: 10/27/24 ?? Procedure(s): US pelvic limited ?? Accession Number(s): [id number] ? cc: Sarah Verduzco DO; LAURENT TATUM [...] DD/ 1301 ? TD/TT: 10/27/24 1301 ? Coper Hand: ? Procedure Note Nitin Ayala - 10/27/[address] [address] Ultrasound Report Signed Patient: Miryam FanMR#: [id number] 06 : 1965Acct:[id number] Age/Sex: 58 / FADM Date: 10/27/24 Loc: HO.US Attending Dr: Laurent Tatum NP Ordering Physician: LAURENT TATUM NP Date of Service: 10/27/24 Procedure(s): US pelvic limited Accession Number(s): [id number] cc: Sarah Verduzco DO; TATUM,LAURENT PARIMUTUEL CASHIER CLINICAL HISTORY: ?hernia R lower or upper [...] 10/27/24 1301 DD/ 1301 TD/TT: 10/27/24 1301 Coper Hand: us Laurent Megan ANP IMG US PROCEDURES Edited Result - Final * BI Mammogram Screening Tomosynthesis Bilateral (06/22/2024 9:45 AM EDT) Anatomical Region Laterality Modality Breast Bilateral Mammography 06/22/2024 9:45 AM EDT Narrative 07/04/2024 6:01 PM EDT ? [facility] ? [address] ?[place] [address] ? Mammography Report ? Signed ? Patient: Meng,Miryam ?MR#: [id number] ?? 06 ? : 1965 ?Acct:[id number] ? Age/Sex: 58 / F ?ADM Date: 10//24 ? Loc: HO.MAMMO ? Attending Lelia Verduzco DO ? Ordering Physician: Sarah Verduzco DO ?Results: 1N ?? egative ? Date of Service: 06/22/24 ?Follow Up: 1 Year From Orig ?? inal Mammogram ? Procedure(s): MM tomosynthesis screening BI ?? Accession Number(s): [id number] ? cc: Sarah Verduzco DO ? EXAMINATION: [...] DD/ 0945 ? TD/TT: 06/22/24 0958 ? Coper Hand: ? Procedure Note Jamie, Image - 07/04/2024 [facility] [address] [place], [place] [address] Mammography Report Signed Patient: Marco Fan#: [id number] 06 : 1965Acct:[id number] Age/Sex: 58 / FADM Date: 06/22/24 Loc: HO.MAMMO Attending Dr: Sarah Verduzco DO Ordering Physician: Sarah Verduzcoults: 1N egative Date of Service: 06/22/24Follow Up: 1 Year From Orig inal Mammogram Procedure(s): MM tomosynthesis screening BI Accession Number(s): [id number] cc: Sarah Verduzco DO EXAMINATION: MM SCREENING [...] DO in OV> 07/04/24 1757 DD/ TD/TT: 06/22/24 0958 Coper Hand: us Sarah Verduzco DO IMG BI PROCEDURES Edited Res ult - Final * Hepatitis C Antibody with Reflex to HCV, RNA, Quantitative, Real-Time PCR (05/04/2024 12:27 PM EDT) Hepatitis C Antibody Nonreactive Nonreactive [facility] Comment:Antibodies to HCV no t detected; does not exclude early acuteHCV infection. Blood Venous blood specimen / Unknown 05/04/2024 12:27 PM EDT 05/04/2024 1:01 PM EDT Sarah Verduzco LAB BLOOD ORDERABLES Final R esult Performing Organization Address [facility]/ZIP Co de Phone Number [facility] [address] [place] [phone] * HIV-1/2 Antigen and Antibodies, Fourth Generation, with Reflexes (05/04/2024 12:27 PM EDT) HIV AB/AG Nonreactive Nonreactive [facility] Comment:HIV-1 p24 Ag and/or HIV-1/HIV-2 Ab not detected.A test result that is nonreactive does not exclude thepossibility of exposure to or infection with HIV-1 and/orHIV-2. Nonreactive results in this assay for individualswith prior exposure to HIV-1 and/or HIV-2 may be due toantigen and antibody levels that are below the limit ofdetection of this assay.[employer] HIV Ag/Ab Combo assay result andsupplemental assay results should be interpreted inconjunction with the patient's clinical presentation,history and other laboratory results. If the results areinconsistent with clinical evidence, additional testing issuggested to confirm the result. Blood Venous blood specimen / Unknown 05/04/2024 12:27 PM EDT 05/04/2024 1:01 PM EDT Sarah Verduzco LAB BLOOD ORDERABLES Final R esult Performing Organization Address City/[facility]/ZIP Co de Phone Number [facility] [address] [place] [address] [phone] * Hm Colonoscopy (03/24/2017 8:58 AM EDT) us Historical Provider MD HEALTH MAINTENANCE Final Result from Last 3 Months or Most Recently Relevant to Health Maintenance Insurance [facility] Care Teams Cap Coverer Relationship Specialty Start Date End Date Sarah Verduzco DO [address] [place] [address] PCP - General Family Medicine 11/21/15
--- OUTSIDE RECORDS SUMMARY | 2025-01-03 08:58 | XMS_ITS | Encounter Summary ---
Author Organization [employer] Address 75 [facility] 7t [place] [address] Care Team Providers Care Heating Worker Name Role Phone Sarah Verduzco DO Primary Care Provider + [phone] Reason for Visit * Reason Comments Med Refill Encounter Details Date Type Department Care Team ([facility] Contact Info) Description 08/21/2024 Refill [facility] MEDICINE [address] [place], [place] [phone] Sarah Verduzco DO 230 [place], [place] [phone] Social History Tobacco Use Types Packs/Day Years [...] Description 01/25/2025 10:30 AM EDT Office Visit [facility] OPTOMETRY [address] [place], [place] [phone] Cindy Meek, OD 230 [place] [address] 02/08/2025 10:00 AM EDT Clinical Support [facility] MEDICINE [address] [place] [address] Lauryn Cunningham, LUISITO documented as of this encounter Visit Diagnoses Not on filedocumented in this encounter Additional Health Concerns Assessment Noted Time PHQ-9 Depression Total Score: 11 024 10:42 AM EDT documented as of this encounter Care Teams Heating Worker Relationship Specialty Start Date End Date Sarah Verduzco DO [address] [place] [address] PCP - General Family Medicine 11/21/15 documented as of this encounter
--- OUTSIDE RECORDS SUMMARY | 2025-01-03 08:59 | XMS_ITS | Encounter Summary ---
Author Organization [employer] Address 75 [facility] 7t [place] [address] Care Team Providers Care Analytics Intern Name Role Phone Sarah Verduzco DO Primary Care Provider + [phone] Reason for Visit * Reason Onset Date Comments Nurse Triage 11/16/2023 Encounter Details Date Type Department Care Team ([facility] st Contact Info) Description 11/16/2023 Telephone [facility] MEDICINE 230 [place], [place] [phone] Sarah Verduzco DO 230 [place], [place] [phone] Nurse Triage Social History Tobacco Use Types [...] this time. Pt [facility] . Pt agrees with this plan . [...] Office Visit [facility] OPTOMETRY [address] [place], [place] [phone] Cindy Meek, OD 230 [place], [place] [phone] 02/08/2025 10:00 AM EDT Clinical Support [facility] MEDICINE 230 [place], [place] [phone] Lauryn Cunningham RN documented as of this encounter Visit Diagnoses Not on filedocumented in this encounter Additional Health Concerns Assessment Noted Time PHQ-9 Depression Total Score: 24 023 8:54 AM EDT documented as of this encounter Care Teams Analytics Intern Relationship Specialty Start Date End Date Sarah Verduzco DO 230 [place], [place] [phone] PCP - General Family Medicine 11/21/15 documented as of this encounter
--- OUTSIDE RECORDS SUMMARY | 2025-01-03 08:59 | XMS_ITS | Encounter Summary ---
Author Organization [employer] Address 75 [facility] 7t [place] [address] Care Team Providers Care Jig And Fixture Repairer Name Role Phone MaddieSarah arriaga Primary Care Provider + [phone] Reason for Visit * Reason Comments Med Refill Encounter Details Date Type Department Care Team (Late Contact Info) Description 04/19/2023 Refill [facility] MEDICINE [address] [place] [address] Alexa Padgett FNP [address] [place] [address] [place] [address] Chronic bilateral low back pain without sciatica [...] Description 01/25/2025 10:30 AM EDT Office Visit [facility] OPTOMETRY [address] [place], [place] [phone] Fantasma, Cindy, OD 230 [place], [place] [phone] 02/08/2025 10:00 AM EDT Clinical Support [facility] MEDICINE [address] [place] [address] Lauryn Cunningham RN documented as of this encounter Visit Diagnoses Diagnosis Chronic bilateral low back pain without sciatica documented in this encounter Additional Health Concerns Assessment Noted Time PHQ-9 Depression Total Score: 16 023 10:36 AM EDT documented as of this encounter Care Teams Jig And Fixture Repairer Relationship Specialty Start Date End Date Sarah Verduzco DO [address] [place] [address] PCP - General Family Medicine 11/21/15 documented as of this encounter
--- OUTSIDE RECORDS SUMMARY | 2025-01-03 08:59 | XMS_ITS | Encounter Summary ---
Author Organization [employer] Address 75 [facility] 7t [place] [address] Care Team Providers Care Crusher Operator Name Role Phone Sarah Verduzco DO Primary Care Provider + [phone] Reason for Visit * Reason Comments Med Refill Encounter Details Date Type Department Care Team (Late Contact Info) Description 04/19/2023 Refill [facility] MEDICINE 230 [place], [place] [phone] Sarah Verduzco DO 230 [place] [address] Chronic GERD Social History Tobacco Use Types [...] 10:30 AM EDT Office Visit [facility] OPTOMETRY [address] [place] [address] Fantasma, Cindy, OD 230 [place] [address] 02/08/2025 10:00 AM EDT Clinical Support [facility] MEDICINE [address] [place] [address] Lauryn Cunningham, LUISITO documented as of this encounter Visit Diagnoses Diagnosis Chronic GERD documented in this encounter Additional Health Concerns Assessment Noted Time PHQ-9 Depression Total Score: 16 023 10:36 AM EDT documented as of this encounter Care Teams Crusher Operator Relationship Specialty Start Date End Date Sarah Verduzco DO [address] [place] [address] PCP - General Family Medicine 11/21/15 documented as of this encounter
--- OUTSIDE RECORDS SUMMARY | 2025-01-03 08:59 | XMS_ITS | Encounter Summary ---
Author Organization [employer] Address 75 [facility] 7t [place] [address] Care Team Providers Care Dip Painter Name Role Phone Sarah Verduzco DO Primary Care Provider + [phone] Reason for Visit * Reason Comments Med Refill Encounter Details Date Type Department Care Team ([facility] Contact Info) Description 04/06/2024 Refill [facility] MEDICINE [address] [place], [place] [phone] Sarah Verduzco DO 230 [place], [place] [phone] Social History Tobacco Use Types Packs/Day Years [...] Description 01/25/2025 10:30 AM EDT Office Visit [facility] OPTOMETRY [address] [place], [place] [phone] Fantasma, Cindy, OD [address] [place] [address] 02/08/2025 10:00 AM EDT Clinical Support [facility] MEDICINE [address] [place] [address] Lauryn Cunningham, LUISITO documented as of this encounter Visit Diagnoses Not on filedocumented in this encounter Additional Health Concerns Assessment Noted Time PHQ-9 Depression Total Score: 24 023 8:54 AM EDT documented as of this encounter Care Teams Dip Painter Relationship Specialty Start Date End Date Sarah Verduzco DO [address] [place] [address] PCP - General Family Medicine 11/21/15 documented as of this encounter
--- OUTSIDE RECORDS SUMMARY | 2025-01-03 08:59 | XMS_ITS | Encounter Summary ---
Author Organization [employer] Address 75 [facility] 7t [place] [address] Care Team Providers Care Life Enrichment Specialist Name Role Phone Sarah Verduzco DO Primary Care Provider + [phone] Reason for Visit * Reason Comments Med Refill Encounter Details Date Type Department Care Team ([facility] Contact Info) Description 10/05/2024 Refill [facility] MEDICINE 230 [place], [place] [phone] Sarah Verduzco DO 230 [place], [place] [phone] Social History Tobacco Use Types Packs/Day Years [...] 01/25/2025 10:30 AM EDT Office Visit [facility] OPTOMETRY [address] [place], [place] [phone] Cindy Meek, OD [address] [place] [address] 02/08/2025 10:00 AM EDT Clinical Support [facility] MEDICINE [address] [place] [address] Lauryn Cunnignham, LUISITO documented as of this encounter Visit Diagnoses Not on filedocumented in this encounter Additional Health Concerns Assessment Noted Time PHQ-9 Depression Total Score: 11 024 10:42 AM EDT documented as of this encounter Care Teams Life Enrichment Specialist Relationship Specialty Start Date End Date Sarah Verduzco DO 230 [place] [address] PCP - General Family Medicine 11/21/15 documented as of this encounter
--- OUTSIDE RECORDS SUMMARY | 2025-01-03 08:59 | XMS_ITS | Encounter Summary ---
Author Organization [employer] Address [address] [place] [address] Care Team Providers Care Family Day Care Provider Name Role Phone Sarah Verduzco DO Primary Care Provider +[phone] Reason for Visit * Reason Onset Date Comments Nurse Triage 04/20/2023 Encounter Details Date Type Department Care Team ([facility] st Contact Info) Description 04/20/2023 Telephone [facility] MEDICINE [address] [place], [place] [phone] Sarah Verduzco DO 230 [place], [place] [phone] Nurse Triage Social History Tobacco Use Types [...] still has not received a call from [facility] to book appt. Pt. Also has [...] [facility] OPTOMETRY [address] [place] [address] Cindy Meek, ALBINA 230 [place] [address] 02/08/2025 10:00 AM EDT Clinical Support [facility] MEDICINE [address] [place] [address] Lauryn Cunningham RN documented as of this encounter Visit Diagnoses Not on filedocumented in this encounter Additional Health Concerns Assessment Noted Time PHQ-9 Depression Total Score: 16 01/27/ 023 10:36 AM EDT documented as of this encounter Care Teams Family Day Care Provider Relationship Specialty Start Date End Date Sarah Verduzco DO [address] [place] [address] PCP - General Family Medicine 11/21/15 documented as of this encounter
--- OUTSIDE RECORDS SUMMARY | 2025-01-03 08:59 | XMS_ITS | Clinical Summary ---
Author Organization [facility] Address [address] [place] [address] Phone Care Team Providers Care Occupational Therapy Specialist Name Role Phone Sarah Verduzco Primary Care Provider +[phone]- [phone] Allergies Active Allergy Reactions Criticality Noted Date [...] study, she states it was done at [facility] neurolog[facility], we called to have it faxed over, it is dated 09/09/2023 and showed normal motor and sensory nerve conduction study. Normal EMG except may suggest mild chronic L5 radiculopathy. She also had lumbar spine MRI 07/02/2024 at [facility], there is no official report from radiology. [...] opioids 07/07/2024 Overview (08/04/2024): Dx: Rx: Last [facility] [employer] DIAGNOSTICIAN agreement: Tier II (visit every 3 months) [...] Review of the cervical spine MRI at [place] dated 02/26/2024 shows a solid arthrodesis at [...] images of her prior C-spine MRI from [facility] 02/26/2024 that showed solid arthrodesis C6-7, right [...] Team Description 10/20/2024 8:00 AM EST Evaluation [facility] [address] [address] Darby Chirinos, ADRI Cervical spondylosis with radiculopathy (Primary Dx) from Last 3 Months Immunizations Name Administration Dates Next Due Tdap Tetanus diptheria acell ular pertussis (Boostrix; Adacel) 7yo and older 12/13/2022,06/10/2022 Surgical History Surgery Date Site/Laterality Comments HYSTERECTOMY PROCEDURE: HISTORICAL HYSTERECTOMY TUBAL LIGATION PROCEDURE: HISTORICAL TUBAL LIGATION CHOLECYSTECTOMY PROCEDURE: RI LAPAROSCOPY SURG CHOLECYSTECTOMY EYE SURGERY PROCEDURE: HISTORICAL [...] ID:[id number] Group ID:[id number] Type:Not on file Address: [facility] [address] [address] Care Teams Occupational Therapy Specialist Relationship Specialty Start Date End Date Sarah Verduzco DO [address] [place] [address] PCP - General Internal Medicine 02/09/18
--- NOTE | 2025-01-03 09:16 | A.OFFVIS_ITS ---
Intake Visit Reasons: 1y/h/o recurrent UTI's Intake Note: Patient presents today for a 1 year follow-up/recurrent UTI's Meds- Cranberry Extract, Nitro & Estradiol Allergies to Antibiotic- No Known Allergies Blood Thinner- None PVR: 0ml Soldering Machine Setter Required: No Accompanied by: Self / Same As Patient Allergies Iodinated Contrast Media [CONTRAST, IV] Allergy (Intermediate, Verified 01/03/25 09:33) HIVES iopromide [From ULTRAVIST] Allergy (Intermediate, Verified 01/03/25 09:33) HIVES ibuprofen [From MOTRIN] Adverse Reaction (Intermediate, Verified 01/03/25 09:33) NAUSEA & VOMITING HPI Comments Details: 01/03/25--59-year-old female presenting with a follow-up for recurrent urinary tract infections. She has a history of recurrent UTIs, the latest occurring in September of this year, currently without dysuria or burning. She continues to use vaginal estrogen Vagifem and cranberry supplements to reduce UTI risk, and takes nitrofurantoin post-coitus. She reports right lower quadrant discomfort. The patient recently underwent an abdominal ultrasound indicating a possible hernia and A CAT scan to determine the necessity for surgery, (followed by Gen Surgery) Additionally, the patient states she is concerned about redness and swelling in her eye post-retinal detachment surgery, suspecting allergies, and is considering further consultation with her eye doctor. Urinary Symptoms Review - Recurrent urinary tract infections, last in September - No current dysuria or burning sensation - Use of vaginal estrogen and cranberry supplements for prevention - Use of nitrofurantoin post-coitus 01/07/24--Miryam is a 57-year-old female who presents today to the office for a follow-up. She is followed for recurrent UTIs. She is prescribed Vagifem and I have discussed antibiotic prophylaxis with sexual activity. Discussed and prescribed cranberry supplements. She states she has been doing well she has not had a recent UTI. She states that she has chronic back pain and recently had an injection but she is still feeling pain. Urinalysis- persistent microscopic hematuria no signs of infection. In review of chart renal ultrasound 04/28/23-kidneys within normal limits. Plan discussed continue Vagifem, cranberry supplements, nitrofurantoin 50 mg after intercourse. 10/08/2023--Miryam has had recurrent UTIs she has been prescribed Vagifem suppositories and antibiotic prophylaxis with sexual activity and cranberry supplements also discussed. She states she did not get the low dose nitrofurantoin once she completed the previous abx treatment for prior UTI. The patient states that she has been using the vagifem suppositories She has chronic back pain, states recent back injection. Urinalysis nitrite positive leukocytes trace blood 3+. Plan--Prescribed Ceftin 500 mg BID for 7 days. Ordered Nitrofurantoin 50 mg to use after the intercourse for antibiotic prophylaxis. Canberry supplements. Cont vagifem as directed. 01/19/23 for office cystoscopy.--findings-- Mild bladder wall thickening. Pelvic exam was notable for vaginal atrophy. [facility] Medical History Hyperlipidemia Non-toxic multinodular goiter Fibromyalgia Arthritis History of fibromyalgia History of anxiety History of headache Depression Lab test positive for detection of COVID-19 virus Asthma GERD (gastroesophageal reflux disease) Arthropathy of 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 Mother History of heart attack Social History Household Members: None Housing: Apartment Alcohol intake: never Patient Tobacco Use Status: Never used Tobacco Results AMB Urinalysis, Automated UA Leukoctes 70 Maame/uL Last Edit by Teetee Ricci on 01/03/25 16:26 UA Nitrite Negative Last Edit by Teetee Ricci on 01/03/25 16:26 UA Urobilinogen 0.2 mg/dL Last Edit by Teetee Ricci on 01/03/25 16:26 UA Protein 15 mg/dL Last Edit by Teetee Ricci on 01/03/25 16:26 UA pH 5.5 Last Edit by Teetee Ricci on 01/03/25 16:26 UA Blood 80 Steve/uL Last Edit by Teetee Ricci on 01/03/25 16:26 UA Specific Swink 1.025 Last Edit by Teetee Ricci on 01/03/25 16:26 UA Ketone Positive Last Edit by Teetee Ricci on 01/03/25 16:26 UA Bilirubin 0 mg/dL Last Edit by Teetee Ricci on 01/03/25 16:26 UA Glucose 0 mg/dL Last Edit by Teetee Ricci on 01/03/25 16:26 Results Reviewed Results Reviewed: Date of Service: 04/28/23 EXAMINATION: US RETROPERITONEAL COMPLETE (RENAL) CLINICAL INFORMATION: Acute low back pain, urinary frequency, history of kidney stones. COMPARISON: Ultrasound kidneys and bladder 12/25/2022. CT abdomen and pelvis 11/18/2021. Ultrasound abdomen complete 06/12/2020. X-ray abdomen 10/24/2019. TECHNIQUE: Real-time imaging of the kidneys and bladder. FINDINGS: RIGHT KIDNEY: 9.1 x 3.9 x 5.8 cm (SAG x AP x TRV). The kidney is normal in size, contour, and echogenicity. Renal cortical thickness is normal. No renal calculi or hydronephrosis. 0.7 x 0.6 x 0.7 cm simple cyst is seen in the upper pole. No follow-up imaging of this finding is recommended. LEFT KIDNEY: 9.2 x 4.7 x 4.9 cm (SAG x AP x TRV). The kidney is normal in size, contour, and echogenicity. Renal cortical thickness is normal. No renal calculi or hydronephrosis. 1.0 x 0.8 x 1.1 cm simple cyst is seen in the lower pole. No follow-up imaging of this finding is recommended. BLADDER: Well distended and normal. Bilateral ureteral jets are demonstrated. Prevoid bladder volume is 282 mL. Postvoid bladder volume is 12 mL. IMPRESSION: 1. No significant finding within the kidneys. No renal calculi. 2. Minimal post void residual. Assessment & Plan Assessment & Plan (1) Recurrent UTI: Code(s): N39.0 - Urinary tract infection, site not specified Category: Medical (2) Right lower quadrant pain: Code(s): R10.31 - Right lower quadrant pain Category: Medical Plan Plan/Discussion - Continue using vaginal estrogen twice a week. - Take cranberry supplements regularly. - Use nitrofurantoin after sexual intercourse. - Follow-up with general surgery to evaluate the need for a hernia surgery. - Consult your eye doctor for redness and swelling, especially with your history of surgery. - Schedule renal/bladder ultrasound results. - Reach out if symptoms worsen or do not improve. Orders: Orders US retroperitoneal comp Today N39.0 - Urinary tract infection, site not specified, R10.31 - Right lower quadrant pain Urine Culture Today N39.0 - Urinary tract infection, site not specified AMB Urinalysis Automated Today Z13.9 - Encounter for screening, unspecified Medications: Refilled cranberry extract administer with meals 425 mg PO BID 60 caps 10RF estradiol (Vagifem) use 2 times a week at bedtime, Mon/Thurs 10 mcg vaginal 2XW 24 tabs 3RF nitrofurantoin macrocrystal 50 mg orally use after sexual activity; must administer with a meal/food 30 caps 2RF Coding Level of Care Code Est Pt Level 4 (41810) Diagnoses Recurrent UTI N39.0 Right lower quadrant pain R10.31
== END 2025-01-03 09:59 | disposition home or self-care (01) ==
LOC: HO.HUSH 08:38
PROVIDERS: PCP Family Medicine; Visit Provider Urology
DX: Z13.9 Encounter for screening, unspecified (principal)

== ENCOUNTER 2025-01-03 08:37 | Outpatient (REF) | payer OTHER, SELFPAY ==
--- OUTSIDE RECORDS SUMMARY | 2025-01-03 18:44 | XMS_ITS | Encounter Summary ---
Author Organization [employer] Address [address] [facility] 7t [place] [address] Care Team Providers Care Sales Ambassador Name Role Phone Sarah Verduzco DO Primary Care Provider + [phone] Reason for Visit * Reason Comments Med Refill Encounter Details Date Type Department Care Team ([facility] Contact Info) Description 09/08/2023 Refill [facility] MEDICINE [address] [place], [place] [phone] Sarah Verduzco DO [address] [place] [address] Social History Tobacco Use Types Packs/Day Years [...] Description 01/25/2025 10:30 AM EDT Office Visit [facility] OPTOMETRY [address] [place], [place] [phone] Fantasma, Cindy, OD 230 [place] [address] 02/08/2025 10:00 AM EDT Clinical Support [facility] MEDICINE [address] [place] [address] Lauryn Cunningham, LUISITO documented as of this encounter Visit Diagnoses Not on filedocumented in this encounter Additional Health Concerns Assessment Noted Time PHQ-9 Depression Total Score: 24 023 8:54 AM EDT documented as of this encounter Care Teams Sales Ambassador Relationship Specialty Start Date End Date Sarah Verduzco DO [address] [place] [address] PCP - General Family Medicine 11/21/15 documented as of this encounter
--- OUTSIDE RECORDS SUMMARY | 2025-01-03 18:44 | XMS_ITS | Encounter Summary ---
Author Organization [employer] Address [address] [facility] 7t [place] [address] Care Team Providers Care Business Services Manager Name Role Phone Sarah Verduzco DO Primary Care Provider + [phone] Reason for Visit * Reason Comments Med Refill Encounter Details Date Type Department Care Team ([facility] Contact Info) Description 08/20/2023 Refill [facility] MEDICINE [address] [place], [place] [phone] Sarah Verduzco DO 230 [place] [address] Chronic neck pain Social History Tobacco Use [...] 08/31/2023 11:48 AM EST Referral faxed for ENVIRONMENTAL MANAGER services to , per provider request. documented in this encounter Plan of Treatment Upcoming Encounters Date Type Department Care Team (Late st Contact Info) Description 01/25/2025 10:30 AM EDT Office Visit [facility] OPTOMETRY [address] [place] [address] Fantasma, Cindy, OD [address] [place] [address] 02/08/2025 10:00 AM EDT Clinical Support [facility] MEDICINE [address] [place] [address] Lauryn Cunningham, RN documented as of this encounter Visit Diagnoses Diagnosis Chronic neck pain Cervicalgia documented in this encounter Additional Health Concerns Assessment Noted Time PHQ-9 Depression Total Score: 24 023 8:54 AM EDT documented as of this encounter Care Teams Business Services Manager Relationship Specialty Start Date End Date Sarah Verduzco DO [address] [place] [address] PCP - General Family Medicine 11/21/15 documented as of this encounter
--- OUTSIDE RECORDS SUMMARY | 2025-01-03 18:44 | XMS_ITS | Encounter Summary ---
Author Organization [facility] Address [address] [facility] 7t [place] [address] Care Team Providers Care Trimming Department Blocker Name Role Phone Sarah Verduzco DO Primary Care Provider + [phone] Reason for Visit * Reason Comments Med Refill Encounter Details Date Type Department [facility] ([facility] Contact Info[facility] Description 12/19/2022 Refill [facility] MEDICINE [address] [place] [address] Sarah Verduzco DO [address] [place] [address] Social History Tobacco Use Types Packs/Day Years [...] 01/25/2025 10:30 AM EDT Office Visit [facility] OPTOMETRY [address] [place], [place] [phone] Cindy Meek, OD 230 [place] [address] 02/08/2025 10:00 AM EDT Clinical Support [facility] MEDICINE [address] [place] [address] Lauryn Cunningham RN documented as of this encounter Visit Diagnoses Not on filedocumented in this encounter Care Teams Trimming Department Blocker Relationship Specialty Start Date End Date Sarah Verduzco DO [address] [place] [address] PCP - General Family Medicine 11/21/15 documented as of this encounter
--- OUTSIDE RECORDS SUMMARY | 2025-01-03 18:44 | XMS_ITS | Encounter Summary ---
Author Organization [employer] Address [address] [facility] [address] 7[address] [place] [address] Care Team Providers Care Printing Machine Mechanic Name Role Phone Sarah Verduzco DO Primary Care Provider + [phone] Encounter Details Date Type Department Care Team ([facility] st Contact Info) Description 07/27/2023 Telephone [facility] MEDICINE [address] [place], [place] [phone] Sarah Verduzco DO [address] [place], [place] [phone] Social History Tobacco Use Types Packs/Day Years [...] 01/25/2025 10:30 AM EDT Office Visit [facility] OPTOMETRY [address] [place], [place] [phone] Cindy Meek, OD 230 [place] [address] 02/08/2025 10:00 AM EDT Clinical Support [facility] MEDICINE [address] [place] [address] Lauryn Cunningham, LUISITO documented as of this encounter Visit Diagnoses Not on filedocumented in this encounter Additional Health Concerns Assessment Noted Time PHQ-9 Depression Total Score: 24 023 8:54 AM EDT documented as of this encounter Care Teams Printing Machine Mechanic Relationship Specialty Start Date End Date Sarah Verduzco DO [address] [place] [address] PCP - General Family Medicine 11/21/15 documented as of this encounter
--- OUTSIDE RECORDS SUMMARY | 2025-01-03 18:44 | XMS_ITS | Encounter Summary ---
Author Organization [employer] Address [address] [facility] 7t [place] [address] Care Team Providers Care Grinding Operator Name Role Phone Sarah Verduzco DO Primary Care Provider + [phone] Reason for Visit * Reason Comments Med Refill Encounter Details Date Type Department Care Team ([facility] Contact Info) Description 12/06/2024 Refill [facility] MEDICINE [address] [place], [place] [phone] Sarah Verduzco DO 230 [place], [place] [phone] Social History Tobacco Use Types Packs/Day Years [...] 01/25/2025 10:30 AM EDT Office Visit [facility] OPTOMETRY [address] [place] [address] Cindy Meek, OD 230 [place] [address] 02/08/2025 10:00 AM EDT Clinical Support [facility] MEDICINE [address] [place] [address] Lauryn Cunningham, LUISITO documented as of this encounter Visit Diagnoses Not on filedocumented in this encounter Additional Health Concerns Assessment Noted Time PHQ-9 Depression Total Score: 20 025 11:28 AM EST documented as of this encounter Care Teams Grinding Operator Relationship Specialty Start Date End Date Sarah Verduzco DO [address] [place] [address] PCP - General Family Medicine 11/21/15 documented as of this encounter
--- OUTSIDE RECORDS SUMMARY | 2025-01-03 18:44 | XMS_ITS | Encounter Summary ---
Author Organization [employer] Address [address] [facility] 7t [place] [address] Care Team Providers Care Evp General Counsel Name Role Phone Sarah Verduzco Primary Care Provider + [phone] Reason for Visit * Reason Comments Med Refill Encounter Details Date Type Department Care Team (Late Contact Info) Description 10/21/2022 Refill [facility] MEDICINE 230 [place] [address] Елена Olson MD [address] [place] [address] Sinusitis, unspecified chronicity, unspecified location Social History [...] Description 01/25/2025 10:30 AM EDT Office Visit [facility] OPTOMETRY [address] [place] [address] Cindy Meek, OD 230 [place] [address] 02/08/2025 10:00 AM EDT Clinical Support [facility] MEDICINE [address] [place] [address] Lauryn Cunningham RN documented as of this encounter Visit Diagnoses Diagnosis Sinusitis, unspecified chronicity, unspecified location documented in this encounter Care Teams Evp General Counsel Relationship Specialty Start Date End Date Sarah Verduzco DO [address] [place] [address] PCP - General Family Medicine 11/21/15 documented as of this encounter
--- OUTSIDE RECORDS SUMMARY | 2025-01-03 18:44 | XMS_ITS | Encounter Summary ---
Author Organization [employer] Address [address] [facility] 7t [place] [address] Care Team Providers Care Crew Truck Driver Name Role Phone Sarah Verduzco DO Primary Care Provider + [phone] Reason for Visit * Reason Comments Med Refill Encounter Details Date Type Department Care Team ([facility] Contact Info) Description 12/29/[address] [facility] MEDICINE [address] [place], [place] [phone] Sarah Verduzco DO 230 [place], [place] [phone] Social History Tobacco Use Types Packs/Day Years [...] Description 01/25/2025 10:30 AM EDT Office Visit [facility] OPTOMETRY [address] [place] [address] Cindy Meek, OD [address] [place] [address] 02/08/2025 10:00 AM EDT Clinical Support [facility] MEDICINE [address] [place] [address] Lauryn Cunningham, LUISITO documented as of this encounter Visit Diagnoses Not on filedocumented in this encounter Additional Health Concerns Assessment Noted Time PHQ-9 Depression Total Score: 20 025 11:28 AM EST documented as of this encounter Care Teams Crew Truck Driver Relationship Specialty Start Date End Date Sarah Verduzco DO [address] [place] [address] PCP - General Family Medicine 11/21/15 documented as of this encounter
--- OUTSIDE RECORDS SUMMARY | 2025-01-03 18:44 | XMS_ITS | Encounter Summary ---
Author Organization [employer] Address [address] [facility] 7t [place] [address] Care Team Providers Care Priming Powder Premix Blender Name Role Phone Sarah Verduzco DO Primary Care Provider + [phone] Reason for Visit * Reason Onset Date Comments Nurse Triage 07/20/2023 Encounter Details Date Type Department Care Team ([facility] st Contact Info) Description 07/20/2023 Telephone [facility] MEDICINE [address] [place], [place] [phone] Sarah Verduzco DO 230 [place], [place] [phone] Nurse Triage Social History Tobacco Use Types [...] juice Pt agrees. Advised to come to [facility] today to be seen by provider [...] accepted this outcome Please contact pt at [phone] documented in this encounter Plan of Treatment Upcoming Encounters Date Type Department Care Team (Late st Contact Info) Description 01/25/2025 10:30 AM EDT Office Visit [facility] OPTOMETRY [address] [place] [address] Cindy Meek, OD 230 [place] [address] 02/08/2025 10:00 AM EDT Clinical Support [facility] MEDICINE [address] [place], [place] [phone] Lauryn Cunningham RN documented as of this encounter Visit Diagnoses Not on filedocumented in this encounter Additional Health Concerns Assessment Noted Time PHQ-9 Depression Total Score: 24 023 8:54 AM EDT documented as of this encounter Care Teams Priming Powder Premix Blender Relationship Specialty Start Date End Date Sarah Verduzco DO 230 [place], [place] [phone] PCP - General Family Medicine 11/21/15 documented as of this encounter
--- OUTSIDE RECORDS SUMMARY | 2025-01-03 18:44 | XMS_ITS | Encounter Summary ---
Author Organization [facility] Address [address] [facility] [address]t [place] [address] Care Team Providers Care Hasher Machine Operator Name Role Phone Sarah Verduzco DO Primary Care Provider + [phone] Encounter Details Date Type Department Care Team (Late Contact Info) Description 12/24/2022 Orders Only [facility] MEDICINE [address] [place] [address] Sarah Verduzco DO 230 [place] [address] Social History Tobacco Use Types Packs/Day Years [...] 10:30 AM EDT Office Visit [facility] OPTOMETRY [address] [place] [address] Cindy Meek, OD 230 [place] [address] 02/08/2025 10:00 AM EDT Clinical Support [facility] MEDICINE 230 [place] [address] Lauryn Cunningham RN documented as of this encounter Visit Diagnoses Not on filedocumented in this encounter Care Teams Hasher Machine Operator Relationship Specialty Start Date End Date Sarah Verduzco DO [address] [place] [address] PCP - General Family Medicine 11/21/15 documented as of this encounter
--- OUTSIDE RECORDS SUMMARY | 2025-01-03 18:44 | XMS_ITS | Encounter Summary ---
Author Organization [employer] Address [address] [facility] 7t [place] [address] Care Team Providers Care Stretcher Drier Operator Name Role Phone Sarah Verduzco DO Primary Care Provider + [phone] Reason for Visit * Reason Comments Med Refill Encounter Details Date Type Department Care Team (Late Contact Info) Description 10/21/2022 Telephone [facility] MEDICINE 230 [place], [place] [phone] Sarah Verduzco DO 230 [place] [address] Med Refill Social History Tobacco Use Types [...] Visit [facility] OPTOMETRY [address] [place] [address] Cindy Meek, OD 230 [place] [address] 02/08/2025 10:00 AM EDT Clinical Support [facility] MEDICINE [address] [place], [place] [phone] Lauryn Cunningham, LUISITO documented as of this encounter Visit Diagnoses Not on filedocumented in this encounter Care Teams Stretcher Drier Operator Relationship Specialty Start Date End Date Sarah Verduzco DO 230 [place], [place] [phone] PCP - General Family Medicine 11/21/15 documented as of this encounter
--- OUTSIDE RECORDS SUMMARY | 2025-01-03 18:44 | XMS_ITS | Encounter Summary ---
Author Organization [employer] Address 75 [facility] 7t [place] [address] Care Team Providers Care Parcel Post Carrier Name Role Phone Sarah Verduzco DO Primary Care Provider + [phone] Reason for Visit * Reason Onset Date Comments Med Refill 10/20/2022 Encounter Details Date Type Department Care Team ([facility] st Contact Info) Description 10/20/2022 Telephone [facility] 230 [place], [place] [phone] Sarah Verduzco DO 230 [place], [place] [phone] Med Refill Social History Tobacco Use Types [...] Description 01/25/2025 10:30 AM EDT Office Visit [facility] [address] [place] [address] Cindy Meek, OD 230 [place] [address] 02/08/2025 10:00 AM EDT Clinical Support [facility] 230 [place] [address] Laruyn Cunningham, RN documented as of this encounter Visit Diagnoses Not on filedocumented in this encounter Care Teams Parcel Post Carrier Relationship Specialty Start Date End Date Sarah Verduzco DO 230 [place] [address] PCP - General Family Medicine 11/21/15 documented as of this encounter
--- OUTSIDE RECORDS SUMMARY | 2025-01-03 18:44 | XMS_ITS | Encounter Summary ---
Author Organization [employer] Address 75 [facility] 7t [place] [address] Care Team Providers Care Priming Mixture Carrier Name Role Phone Sarah Verduzco DO Primary Care Provider + [phone] Reason for Visit * Reason Comments Med Refill Encounter Details Date Type Department Care Team (Late Contact Info) Description 02/06/[address] [facility] 230 [place], [place] [phone] Sarah Verduzco DO 230 [place] [address] Chronic GERD Social History Tobacco Use Types [...] Upcoming Encounters Date Type Department Care Team ([facility] Contact Info) Description 01/25/2025 10:30 AM EDT Office [address] [facility] [address] [place] [address] Cindy Meek, OD 230 [place], [place] [phone] 02/08/2025 10:00 AM EDT Clinical Support [facility] 230 [place], [place] [phone] Lauryn Cunningham RN documented as of this encounter Visit Diagnoses Diagnosis Chronic GERD documented in this encounter Additional Health Concerns Assessment Noted Time PHQ-9 Depression Total Score: 16 023 10:36 AM EDT documented as of this encounter Care Teams Priming Mixture Carrier Relationship Specialty Start Date End Date Sarah Verduzco DO 230 [place], [place] [phone] PCP - General Family Medicine 11/21/15 documented as of this encounter
--- OUTSIDE RECORDS SUMMARY | 2025-01-03 18:44 | XMS_ITS | Encounter Summary ---
Author Organization [facility] Address [address] [facility] [place] [address] Care Team Providers Care Wharf Tender Helper Name Role Phone Sarah Verduzco DO Primary Care Provider Aura Kramer MD Unavailable [phone] Mimi Newsome PA-C Unavailable Kaleb Tripathi PA-C Unavailable [phone] Encounter Details Date Type Department Care Team Description 08/13/2018 Refill Gastroenterology - [place] [address] [phone] Donita Lorenzo DScPAS Social History Tobacco Use Types Packs/Day Years Used Date Smoking Tobacco: Former Smokeless Tobacco: Never Sex Assigned at Date Recorded Not on file documented as of this encounter Plan of Treatment Not on file documented as of this encounter Visit Diagnoses Not on filedocumented in this encounter Care Teams Wharf Tender Helper Relationship Specialty Start Date End Date Sarah Verduzco DO PCP - General Internal Medicine 02/09/18 Aura Pollock MD [address] [address] Surgeon Neurosurgery 12/09/21 Mimi Newsome PA-C [address] [address] Specialist Neurosurgery 12/09/21 Kaleb Tripathi PA-C [address] [address] Specialist Neurosurgery 12/09/21 documented as of this encounter
--- OUTSIDE RECORDS SUMMARY | 2025-01-03 18:44 | XMS_ITS | Encounter Summary ---
Author Organization [email or web address] Address [address] [facility] [address] 7t [place] [address] Care Team Providers Care Nuts And Bolts Assembler Name Role Phone Dax Sarah Primary Care Provider + [phone] Encounter Details Date Type Department Care Team ([facility] st Contact Info) Description 12/29/2024 Orders Only [facility] External Provider, [facility] Social History Tobacco Use Types Packs/Day [...] Upcoming Encounters Date Type Department Care Team ([facility] st Contact Info) Description 01/25/2025 10:30 AM EDT Office Visit [facility] [address] [place] [address] FantasmaCindy sanchez, OD 230 [place] [address] 02/08/2025 10:00 AM EDT Clinical Support [facility] 230 [place] [address] Lauryn Cunningham, LUISITO documented as of this encounter Procedures Procedure Name Priority Date/Time Associated Diagnosis Comments CT PELVIS WO CONTRAST Routine 12/30/2024 8:24 AM EDT documented in this encounter Results * CT Pelvis w/o Contrast (12/30/2024 8:24 AM EDT) Anatomical Region Laterality Modality Body, Pelvis Computed Tomogra phy 12/30/2024 8:24 AM EDT Narrative 12/30/2024 8:25 AM EDT ? [facility] ?[address] ?[place] [address] ? CT Scan Report ? Signed ? Patient: Fan,Miryam ?MR#: [id number] ?? 06 ? : 1965 ?Acct:[id number] ? Age/Sex: 59 / F ?ADM Date: 04/17/25 ? Loc: HO.CT ? Attending Dr: Hardik Jiang MD ? Ordering Physician: Hardik Jiang MD ?? Date of Service: 12/29/24 ?? Procedure(s): CT pelvis wo IV con ?? Accession Number(s): [id number] ? cc: Sarah Verduzco DO; Hardik Jiang MD ? Report Number: ?? [id number]: Total DLP = ??510.00 mGy-cm ? CLINICAL [...] ? DD/ 3 ? TD/TT: 12/30/24823 ? Telegraph Plant Maintainer: ? Procedure Note Nitin Ayala - 12/30/[address] [place] [address] [address] Scan Report Signed Patient: Miryam FanMR#: [id number] 06 : 1965Acct:[id number] Age/Sex: 59 / FADM Date: 12/29/24 Loc: HO.CT Attending Dr: Hardik Jiang MD Ordering Physician: Hardik Jiang MD Date of Service: 12/29/24 Procedure(s): CT pelvis wo IV con Accession Number(s): [id number] cc: Sarah Verduzco DO; Hardik Jiang MD Report Number: [id number]: Total DLP = 510.00 mGy-cm CLINICAL HISTORY: [...] in OV> 12/30/24824 DD/ 3 TD/TT: 12/30/24823 Telegraph Plant Maintainer: [facility] External Provider IMG CT PROCEDURES Edited Result - Final documented in this encounter Visit Diagnoses Not on filedocumented in this encounter Additional Health Concerns Assessment Noted Time PHQ-9 Depression Total Score: 20 025 11:28 AM EST documented as of this encounter Care Teams Nuts And Bolts Assembler Relationship Specialty Start Date End Date Sarah Verduzco DO [address] [place] [address] PCP - General Family Medicine 11/21/15 documented as of this encounter
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
--- OUTSIDE RECORDS SUMMARY | 2025-01-03 18:45 | XMS_ITS | Encounter Summary ---
Author Organization [employer] Address 75 [facility] 7t [place] [address] Care Team Providers Care Rn Oncology Clinical Name Role Phone Sarah Verduzco DO Primary Care Provider + [phone] Reason for Visit * Reason Comments Med Refill Encounter Details Date Type Department Care Team ([facility] Contact Info) Description 01/05/2024 Refill [facility] 230 [place], [place] [phone] Sarah Verduzco DO 230 [place], [place] [phone] Social History Tobacco Use Types Packs/Day Years [...] Description 01/25/2025 10:30 AM EDT Office Visit [facility] [address] [place], [place] [phone] Fantasma, Cindy, OD 230 [place] [address] 02/08/2025 10:00 AM EDT Clinical Support [facility] 230 [place] [address] Lauryn Cunningham, LUISITO documented as of this encounter Visit Diagnoses Not on filedocumented in this encounter Additional Health Concerns Assessment Noted Time PHQ-9 Depression Total Score: 24 023 8:54 AM EDT documented as of this encounter Care Teams Rn Oncology Clinical Relationship Specialty Start Date End Date Sarah Verduzco DO 230 [place] [address] PCP - General Family Medicine 11/21/15 documented as of this encounter
--- OUTSIDE RECORDS SUMMARY | 2025-01-03 18:45 | XMS_ITS | Encounter Summary ---
Author Organization [employer] Address 75 [facility] 7t [place] [address] Care Team Providers Care Wood Fuel Pelletizer Name Role Phone Sarah Verduzco DO Primary Care Provider + [phone] Reason for Visit * Reason Comments Med Refill Encounter Details Date Type Department Care Team ([facility] Contact Info) Description 04/06/[address] [facility] MEDICINE 230 [place], [place] [phone] Sarah Verduzco DO 230 [place], [place] [phone] Social History Tobacco Use Types Packs/Day Years [...] AM EDT Office Visit [facility] OPTOMETRY [address] [place], [place] [phone] Fantasma, Cindy, OD 230 [place] [address] 02/08/2025 10:00 AM EDT Clinical Support [facility] [address] [place] [address] Lauryn Cunningham, LUISITO documented as of this encounter Visit Diagnoses Not on filedocumented in this encounter Additional Health Concerns Assessment Noted Time PHQ-9 Depression Total Score: 24 023 8:54 AM EDT documented as of this encounter Care Teams Wood Fuel Pelletizer Relationship Specialty Start Date End Date Sarah Verduzco DO 230 [place] [address] PCP - General Family Medicine 11/21/15 documented as of this encounter
--- OUTSIDE RECORDS SUMMARY | 2025-01-03 18:45 | XMS_ITS | Clinical Summary ---
Author Organization [facility] Address 175 [place] [address] Phone Care Team Providers Care Dressmaker Garment Fitter Name Role Phone Sarha Verduzco Primary Care Provider [phone] Allergies Active Allergy Reactions Criticality Noted Date [...] study, she states it was done at [facility] neurology, we called to have it faxed over, it is dated 09/09/2023 and showed normal motor and sensory nerve conduction study. Normal EMG except may suggest mild chronic L5 radiculopathy. She also had lumbar spine MRI 07/02/[address] [facility], there is no official report from radiology. [...] opioids 07/07/2024 Overview (08/04/2024): Dx: Rx: Last CREDIT COLLECTIONS MANAGER agreement: Tier II (visit every 3 months) [...] Review of the cervical spine MRI at [place] dated 02/26/2024 shows a solid arthrodesis at [...] images of her prior C-spine MRI from [facility] 02/26/2024 that showed solid arthrodesis C6-7, right [...] Team Description 10/20/2024 8:00 AM EST Evaluation [facility] [address] [address] Darby Chirinos, ADRI Cervical spondylosis with radiculopathy (Primary Dx) from Last 3 Months Immunizations Name Administration Dates Next Due Tdap Tetanus diptheria acell ular pertussis (Boostrix; Adacel) 7yo and older 12/13/2022,06/10/2022 Surgical History Surgery Date Site/Laterality Comments HYSTERECTOMY PROCEDURE: HISTORICAL HYSTERECTOMY TUBAL LIGATION PROCEDURE: HISTORICAL TUBAL LIGATION CHOLECYSTECTOMY PROCEDURE: AR LAPAROSCOPY SURG CHOLECYSTECTOMY EYE SURGERY PROCEDURE: HISTORICAL [...] ID:[id number] Group ID:[id number] Type:Not on file Address: [facility] [address] [address] Care Teams Dressmaker Garment Fitter Relationship Specialty Start Date End Date Sarah Verduzco DO [address] [place] [address] PCP - General Internal Medicine 02/09/18
--- OUTSIDE RECORDS SUMMARY | 2025-01-03 18:45 | XMS_ITS | Encounter Summary ---
Author Organization [employer] Address 75 [facility] 7t [place] [address] Care Team Providers Care Block Layer Name Role Phone Sarah Verduzco DO Primary Care Provider + [phone] Reason for Visit * Reason Onset Date Comments Appointment Request 04/04/2024 Encounter Details Date Type Department Care Team ([facility] Contact Info) Description 04/04/2024 Telephone [facility]INE 230 [place], [place] [phone] Sarah Verduzco DO 230 [place], [place] [phone] Appointment Request Social History Tobacco Use Types [...] management appt 04/05. Please contact pt at [phone]. documented in this encounter Plan of Treatment Upcoming Encounters Date Type Department Care Team (Late st Contact Info) Description 01/25/2025 10:30 AM EDT Office Visit [facility] OPTOMET[facility] [address] [place], [place] [phone] Cindy Meek, OD 230 [place] [address] 02/08/2025 10:00 AM EDT Clinical Support [facility]INE 230 [place] [address] Lauryn Cunningham, LUISITO documented as of this encounter Visit Diagnoses Not on filedocumented in this encounter Additional Health Concerns Assessment Noted Time PHQ-9 Depression Total Score: 24 023 8:54 AM EDT documented as of this encounter Care Teams Block Layer Relationship Specialty Start Date End Date Sarah Verduzco DO 230 [place] [address] PCP - General Family Medicine 11/21/15 documented as of this encounter
--- OUTSIDE RECORDS SUMMARY | 2025-01-03 18:45 | XMS_ITS | Encounter Summary ---
Author Organization [employer] Address 75 [facility] 7t [place] [address] Care Team Providers Care Credit Card Interviewer Name Role Phone Sarah Verduzco DO Primary Care Provider + [phone] Reason for Visit * Reason Onset Date Comments Appointment Request 08/22/2024 Encounter Details Date Type Department Care Team ([facility] Contact Info) Description 08/22/2024 Telephone [facility] MEDICINE 230 [place], [place] [phone] Sarah Verduzco DO 230 [place], [place] [phone] Appointment Request Social History Tobacco Use Types [...] DME RX Contact: Jerry, On behalf of [facility]'s Care Management staff [facility], we are requesting Durable Medical Equipment (DME) for the pt .I can facilitate the ordering process through our approved vendor (such as [employer], [employer], etc.), but a prescription for the DME item(s) is needed. The DME item(s)requested are - Shower chair - Cane Kindly send the prescriptions to ([email or web address]) for processing the DME referral on behalf of the patient. Please also provide the patient's current Height and Weight. Should you have any inquiries regarding this request, feel free to contact me [phone]. Thank you for your assistance in this matter. * Telephone Encounter - Priya Fritz RN - 09/01/2024 10:02 AM EST ----- Message from Lias Kenny sent at 08/31/2024 3:20 PM EST ----- Regarding: DME RX Contact: Jerry, On behalf of [facility]'s Care Management staff [facility], we are requesting Durable Medical Equipment (DME) for the pt .I can facilitate the ordering process through our approved vendor (such as [employer], [employer], etc.), but a prescription for the DME item(s) is needed. The DME item(s)requested are - Shower chair - Cane Kindly send the prescriptions to ([email or web address]) for processing the DME referral on behalf of the patient. Please also provide the patient's current Height and Weight. Should you have any inquiries regarding this request, feel free to contact me [phone]. Thank you for your assistance in this matter. * Telephone Encounter - Thuy Nails - 08/22/2024 11:20 AM EST Tc from pt requesting to r/s pain management appointment from 08/23. Contact pt at [phone] documented in this encounter Plan of Treatment Upcoming Encounters Date Type Department Care Team (Late st Contact Info) Description 01/25/2025 10:30 AM EDT Office Visit [facility] OPTOMETRY [address] [place] [address] Cindy Meek, OD 230 [place] [address] 02/08/2025 10:00 AM EDT Clinical Support [facility] MEDICINE [address] [place] [address] Lauryn Cunningham, RN documented as of this encounter Visit Diagnoses Not on filedocumented in this encounter Additional Health Concerns Assessment Noted Time PHQ-9 Depression Total Score: 11 024 10:42 AM EDT documented as of this encounter Care Teams Credit Card Interviewer Relationship Specialty Start Date End Date Sarah Verduzco DO 230 [place] [address] PCP - General Family Medicine 11/21/15 documented as of this encounter
--- OUTSIDE RECORDS SUMMARY | 2025-01-03 18:45 | XMS_ITS | Encounter Summary ---
Author Organization [facility] Address 75 [facility] 7t [place] [address] Care Team Providers Care Jd Edwards Developer Name Role Phone Sarah Verduzco DO Primary Care Provider + [phone] Reason for Visit * Reason Comments Med Refill Encounter Details Date Type Department Care Team ([facility] Contact Info) Description 12/04/2022 Refill [facility] MEDICINE 230 [place] [address] Sarah Verduzco DO 230 [place] [address] Social History Tobacco Use Types Packs/Day Years [...] Visit [facility] OPTOMETRY [address] [place], [place] [phone] Cindy Meek, OD 230 [place] [address] 02/08/2025 10:00 AM EDT Clinical Support [facility] MEDICINE [address] [place] [address] Lauryn Cunningham RN documented as of this encounter Visit Diagnoses Not on filedocumented in this encounter Care Teams Jd Edwards Developer Relationship Specialty Start Date End Date Sarah Verduzco DO [address] [place] [address] PCP - General Family Medicine 11/21/15 documented as of this encounter
--- OUTSIDE RECORDS SUMMARY | 2025-01-03 18:45 | XMS_ITS | Encounter Summary ---
Author Organization [employer] Address [address] [facility] 7t [place] [address] Care Team Providers Care Cook School Cafeteria Name Role Phone Sarah Verduzco DO Primary Care Provider + [phone] Reason for Visit * Reason Onset Date Comments Nurse Triage 11/16/2023 Encounter Details Date Type Department Care Team ([facility] st Contact Info) Description 11/16/2023 Telephone [facility] MEDICINE 230 [place], [place] [phone] Sarah Verduzco DO 230 [place], [place] [phone] Nurse Triage Social History Tobacco Use Types [...] this time. Pt [facility]'t [facility] to [facility] . Pt agrees with this plan . [...] Description 01/25/2025 10:30 AM EDT Office Visit [facility] OPTOM[facility]RY [address] [place], [place] [phone] Cindy Meek, OD 230 [place], [place] [phone] 02/08/2025 10:00 AM EDT Clinical Support [facility] MEDICINE 230 [place], [place] [phone] Lauryn Cunningham RN documented as of this encounter Visit Diagnoses Not on filedocumented in this encounter Additional Health Concerns Assessment Noted Time PHQ-9 Depression Total Score: 24 023 8:54 AM EDT documented as of this encounter Care Teams Cook [employer] Cafeteria Relationship Specialty Start Date End Date Sarah Verduzco DO 230 [place], [place] [phone] PCP - General Family Medicine 11/21/15 documented as of this encounter
--- OUTSIDE RECORDS SUMMARY | 2025-01-03 18:45 | XMS_ITS | Encounter Summary ---
Author Organization [employer] Address 75 [facility] 7t [place] [address] Care Team Providers Care Operational Risk Manager Name Role Phone Sarah Verduzco DO Primary Care Provider + [phone] Reason for Visit * Reason Comments Med Refill Encounter Details Date Type Department Care Team (Late Contact Info) Description 04/19/2023 Refill [facility] MEDICINE 230 [place], [place] [phone] Sarah Verduzco DO 230 [place] [address] Chronic GERD Social History Tobacco Use Types [...] [facility] OPTOMETRY [address] [place] [address] Fantasma, Cindy, OD 230 [place] [address] 02/08/2025 10:00 AM EDT Clinical Support [facility] MEDICINE [address] [place] [address] Lauryn Cunningham, LUISITO documented as of this encounter Visit Diagnoses Diagnosis Chronic GERD documented in this encounter Additional Health Concerns Assessment Noted Time PHQ-9 Depression Total Score: 16 023 10:36 AM EDT documented as of this encounter Care Teams Operational Risk Manager Relationship Specialty Start Date End Date Sarah Verduzco DO 230 [place] [address] PCP - General Family Medicine 11/21/15 documented as of this encounter
--- OUTSIDE RECORDS SUMMARY | 2025-01-03 18:45 | XMS_ITS | Encounter Summary ---
Author Organization [id number] Address [address] [facility] 7t [place] [address] Care Team Providers Care Materials Manager Name Role Phone Sarah Verduzco DO Primary Care Provider + [phone] Reason for Visit * Reason Comments Med Refill Encounter Details Date Type Department Care Team ([facility] Contact Info) Description 06/20/2023 Refill [facility] MEDICINE 230 [place], [place] [phone] Sarah Verduzco DO 230 [place] [address] Chronic neck pain Social History Tobacco Use [...] [facility] OPTOMETRY [address] [place], [place] [phone] Fantasma, Cindy, OD [address] [place] [address] 02/08/2025 10:00 AM EDT Clinical Support [facility] MEDICINE [address] [place] [address] Lauryn Cunningham, LUISITO documented as of this encounter Visit Diagnoses Diagnosis Chronic neck pain Cervicalgia documented in this encounter Additional Health Concerns Assessment Noted Time PHQ-9 Depression Total Score: 24 023 8:54 AM EDT documented as of this encounter Care Teams Materials Manager Relationship Specialty Start Date End Date Sarah Verduzco DO 230 [place] [address] PCP - General Family Medicine 11/21/15 documented as of this encounter
--- OUTSIDE RECORDS SUMMARY | 2025-01-03 18:45 | XMS_ITS | Encounter Summary ---
Author Organization [employer] Address [address] [facility] [facility] [address] 7t [place] [address] Care Team Providers Care Probe Operator Name Role Phone DaxSarah Primary Care Provider + [phone] Encounter Details Date Type Department Care Team (Late st Contact Info) Description 12/22/2023 Orders Only [facility] MEDICINE [address] [place] [address] ProviderTristan MD Social History Tobacco Use Types [...] [facility] OPTOMETRY [address] [place], [place] [phone] Fantasma, Cindy, OD 230 [place] [address] 02/08/2025 10:00 AM EDT Clinical Support [facility] [address] [place], [place] [phone] Lauryn Cunningham RN documented as of this [...] documented as of this encounter Care Teams Probe Operator Relationship Specialty Start Date End Date Sarah Verduzco DO 230 [place], [place] [phone] PCP - General Family Medicine 11/21/15 documented as of this encounter
--- OUTSIDE RECORDS SUMMARY | 2025-01-03 18:45 | XMS_ITS | Encounter Summary ---
Author Organization [employer] Address 75 [facility] 7t [place] [address] Care Team Providers Care Pharmacy Informatics Manager Name Role Phone Sarah Verduzco DO Primary Care Provider + [phone] Reason for Visit * Reason Comments Med Refill Encounter Details Date Type Department Care Team ([facility] Contact Info) Description 10/05/[address] [facility] 230 [place], [place] [phone] Sarah Verduzco DO 230 [place], [place] [phone] Social History Tobacco Use Types Packs/Day Years [...] Visit [facility] OPTOMETRY [address] [place], [place] [phone] Cindy Meek, OD 230 [place] [address] 02/08/2025 10:00 AM EDT Clinical Support [facility] 230 [place] [address] Lauryn Cunningham, LUISITO documented as of this encounter Visit Diagnoses Not on filedocumented in this encounter Additional Health Concerns Assessment Noted Time PHQ-9 Depression Total Score: 11 024 10:42 AM EDT documented as of this encounter Care Teams Pharmacy Informatics Manager Relationship Specialty Start Date End Date Sarah Verduzco DO 230 [place] [address] PCP - General Family Medicine 11/21/15 documented as of this encounter
--- OUTSIDE RECORDS SUMMARY | 2025-01-03 18:45 | XMS_ITS | Encounter Summary ---
Author Organization [facility] Address [address] [facility] [place] [address] Care Team Providers Care Director Of Intelligence Name Role Phone Sarah Verduzco DO Primary Care Provider Aura Kramer MD Unavailable [phone] Mimi Newsome PA-C Unavailable [phone] Kaleb Tripathi PA-C Unavailable +[phone] Encounter Details Date Type Department Care Team Description 12/20/2021 Release of Information Medical Records [address] [place] [address] Abstract, Provider Social History Tobacco Use Types [...] in this encounter Care Teams Director Of Intelligence Relationship Specialty Start Date End Date Sarah Verduzco DO PCP - General Internal Medicine 02/09/18 Aura Pollock MD 175 [facility] [address] [place] [address] Surgeon Neurosurgery 12/09/21 Mimi Newsome PA-C [address] [address] Specialist Neurosurgery 12/09/21 Kaleb Tripathi PA-C 175 [facility] [address] [place] [address] Specialist Neurosurgery 12/09/21 documented as of this encounter
--- OUTSIDE RECORDS SUMMARY | 2025-01-03 18:45 | XMS_ITS | Encounter Summary ---
Author Organization [employer] Address 75 [facility] 7t [place] [address] Care Team Providers Care Sawyer Cork Slabs Name Role Phone Sarah Verduzco DO Primary Care Provider + [phone] Reason for Visit * Reason Comments Med Refill Encounter Details Date Type Department Care Team ([facility] Contact Info) Description 08/21/2024 Refill [facility] 230 [place], [place] [phone] Sarah Verduzco DO 230 [place], [place] [phone] Social History Tobacco Use Types Packs/Day Years [...] Description 01/25/2025 10:30 AM EDT Office Visit [facility] OPTOMETRY [address] [place], [place] [phone] Cindy Meek, OD 230 [place] [address] 02/08/2025 10:00 AM EDT Clinical Support [facility] [address] [place] [address] Lauryn Cunningham, LUISITO documented as of this encounter Visit Diagnoses Not on filedocumented in this encounter Additional Health Concerns Assessment Noted Time PHQ-9 Depression Total Score: 11 024 10:42 AM EDT documented as of this encounter Care Teams Sawyer Cork Slabs Relationship Specialty Start Date End Date Sarah Verduzco DO 230 [place] [address] PCP - General Family Medicine 11/21/15 documented as of this encounter
--- OUTSIDE RECORDS SUMMARY | 2025-01-03 18:45 | XMS_ITS | Encounter Summary ---
Author Organization [email or web address] Address 75 [facility] 7t [place] [address] Care Team Providers Care Underwear Finisher Name Role Phone Sarah Verduzco DO Primary Care Provider + [phone] Reason for Visit * Reason Comments Med Refill Encounter Details Date Type Department Care Team ([facility] Contact Info) Description 03/31/2024 Refill [facility] MEDICINE 230 [place], [place] [phone] Sarah Verduzco DO 230 [place], [place] [phone] Social History Tobacco Use Types Packs/Day Years [...] 10:30 AM EDT Office Visit [facility] OPTOMETRY [address] [place], [place] [phone] Fantasma, Cindy, OD 230 [place] [address] 02/08/2025 10:00 AM EDT Clinical Support [facility] MEDICINE 230 [place] [address] Lauryn Cunningham, LUISITO documented as of this encounter Visit Diagnoses Not on filedocumented in this encounter Additional Health Concerns Assessment Noted Time PHQ-9 Depression Total Score: 24 023 8:54 AM EDT documented as of this encounter Care Teams Underwear Finisher Relationship Specialty Start Date End Date Sarah Verduzco DO 230 [place] [address] PCP - General Family Medicine 11/21/15 documented as of this encounter
--- OUTSIDE RECORDS SUMMARY | 2025-01-03 18:45 | XMS_ITS | Encounter Summary ---
Author Organization [employer] Address 75 [facility] 7t [place] [address] Care Team Providers Care Irrigation System Installer Name Role Phone Sarah Verduzco DO Primary Care Provider [phone] Reason for Visit * Reason Onset Date Comments Nurse Triage 04/20/2023 Encounter Details Date Type Department Care Team ([facility] st Contact Info) Description 04/20/2023 Telephone [facility] MEDICINE 230 [place], [place] [phone] Sarah Verduzco DO 230 [place], [place] [phone] Nurse Triage Social History Tobacco Use Types [...] still has not received a call from [facility] to book appt. Pt. Also has [...] Description 01/25/2025 10:30 AM EDT Office Visit [facility] OPTOMETRY [address] [place] [address] Cindy Meek, ALBINA 230 [place] [address] 02/08/2025 10:00 AM EDT Clinical Support [facility] MEDICINE 230 [place] [address] Lauryn Cunningham RN documented as of this encounter Visit Diagnoses Not on filedocumented in this encounter Additional Health Concerns Assessment Noted Time PHQ-9 Depression Total Score: 16 01/27/ 023 10:36 AM EDT documented as of this encounter Care Teams Irrigation System Installer Relationship Specialty Start Date End Date Sarah Verduzco DO 230 [place] [address] PCP - General Family Medicine 11/21/15 documented as of this encounter
--- OUTSIDE RECORDS SUMMARY | 2025-01-03 18:45 | XMS_ITS | Encounter Summary ---
Author Organization [facility] Address [address] [facility] [place] [address] Care Team Providers Care Audit Practice Intern Name Role Phone Sarah Verduzco DO Primary Care Provider Aura Kramer MD Unavailable [phone] Mimi Newsome PA-C Unavailable Kaleb Tripathi PA-C Unavailable Encounter Details Date Type Department Care Team Description 12/17/2021 SC[facility] Medical [facility] Neurosurgery [place] [address] [phone] Kaleb Tripathi PA-C [address] [phone] Social History Tobacco Use Types Packs/Day Years [...] on filedocumented in this encounter Care Teams Audit Practice Intern Relationship Specialty Start Date End Date Sarah Verduzco DO PCP - General Internal Medicine 02/09/18 Aura Pollock MD [address] [phone] Surgeon Neurosurgery 12/09/21 Mimi Newsome PA-C 175 [facility] [address] [place] [address] Specialist Neurosurgery 12/09/21 Kaleb Tripathi PA-C 175 [facility] [address] [place] [address] Specialist Neurosurgery 12/09/21 documented as of this encounter
--- OUTSIDE RECORDS SUMMARY | 2025-01-03 18:45 | XMS_ITS | Encounter Summary ---
Author Organization [employer] Address 75 [facility] 7t [place] [address] Care Team Providers Care Student Truck Driver Name Role Phone Sarah Verduzco DO Primary Care Provider [phone] Reason for Visit * Reason Onset Date Comments Medication Question 03/24/2023 Encounter Details Date Type Department Care Team ([facility] Contact Info) Description 03/24/2023 Telephone [facility] 230 [place], [place] [phone] Sarah Verduzco DO 230 [place], [place] [phone] Medication Question Social History Tobacco Use Types [...] used to receive. Please contact pt at [phone] documented in this encounter Plan of Treatment Upcoming Encounters Date Type Department Care Team (Late st Contact Info) Description 01/25/2025 10:30 AM EDT Office Visit [facility] OPTOMETRY 267 [place] [address] Cindy Meek, OD 230 [place] [address] 02/08/2025 10:00 AM EDT Clinical Support [facility] 230 [place] [address] Lauryn Cunningham RN documented as of this encounter Visit Diagnoses Not on filedocumented in this encounter Additional Health Concerns Assessment Noted Time PHQ-9 Depression Total Score: 16 023 10:36 AM EDT documented as of this encounter Care Teams Student Truck Driver Relationship Specialty Start Date End Date Sarah Verduzco DO 230 [place] [address] PCP - General Family Medicine 11/21/15 documented as of this encounter
--- OUTSIDE RECORDS SUMMARY | 2025-01-03 18:45 | XMS_ITS | Encounter Summary ---
Author Organization [employer] Address 75 [facility] 7t [place] [address] Care Team Providers Care Construction Producer Name Role Phone Sarah Verduzco DO Primary Care Provider + [phone] Reason for Visit * Reason Comments Med Refill Encounter Details Date Type Department Care Team ([facility] Contact Info) Description 01/29/2024 Refill [facility] MEDICINE 230 [place], [place] [phone] Sarah Verduzco DO 230 [place], [place] [phone] Social History Tobacco Use Types Packs/Day Years [...] 10:30 AM EDT Office Visit [facility] OPTOMETRY [address] [place], [place] [phone] Fantasma, Cindy, OD 230 [place] [address] 02/08/2025 10:00 AM EDT Clinical Support [facility] MEDICINE 230 [place] [address] Lauryn Cunningham, LUISITO documented as of this encounter Visit Diagnoses Not on filedocumented in this encounter Additional Health Concerns Assessment Noted Time PHQ-9 Depression Total Score: 24 023 8:54 AM EDT documented as of this encounter Care Teams Construction Producer Relationship Specialty Start Date End Date Sarah Verduzco DO 230 [place] [address] PCP - General Family Medicine 11/21/15 documented as of this encounter
--- OUTSIDE RECORDS SUMMARY | 2025-01-03 18:45 | XMS_ITS | Clinical Summary ---
Author Organization [employer] Address 75 [facility] 7t [place] [address] Care Team Providers Care Rodbuster Name Role Phone DellaSarah mills Primary Care Provider + [phone] Allergies Active Allergy Reactions Criticality Noted Date [...] opioids 07/07/2024 Overview (07/07/2024): Dx: Rx: Last HOTEL FRONT DESK CLERK agreement: Tier II (visit every 3 months) [...] She request prescription to be send to [facility] pharmacy due to not being covered at [facility]. 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 External Provider, [facility] 12/29/2024 Refill [facility]INE 230 [place] [address] Sarah Verduzco DO 2024 Refill [facility] [address] [place] [address] Sarah Verduzco DO Chronic bilateral low back pain with left-sided sciatica 12/06/2024 Refill [facility] [address] [place] [address] Sarah Verduzco DO 11/28/2024 Refill [facility] [address] [place] [address] Sarah Verduzco DO Chronic nonintractable headache, unspecified headache type; Melasma 11/28/2024 Refill [facility] [address] [place] [address] Sarah Verduzco DO Chronic bilateral low back pain with left-sided sciatica 11/22/2024 Refill [facility] [place] [address] Sarah Verduzco DO 11/14/2024 11:15 AM EST Office Visit [facility] [place] [address] Sarah Verduzco DO Major depression, recurrent, chronic [...] Travel 11/07/2024 1:30 PM EST Clinical Support [facility] [place] [address] Lauryn Cunningham student assistant neck pain (Primary Dx) 11/07/2024 Telephone [facility] [place] [address] Lauryn Cunningham, RN HOTEL FRONT DESK CLERK Renewal today 11/07/2024 Travel 11/07/2024 Telephone [facility] [place] [address] Lauryn Cunningham RN Recommend HOTEL FRONT DESK CLERK Tier 2 10/31/2024 Refill [facility] [place] [address] Sarah Verduzco DO Chronic nonintractable headache, unspecified headache type 10/27/2024 Orders Only [facility] [place] [address] Laurent Tatum ANP Fascial defect (Primary Dx) 10/24/2024 Refill [facility] 230 [place] [address] Sarah Verduzco DO Chronic bilateral low back pain with left-sided sciatica 10/24/2024 Telephone [facility] [address] [place] [address] Sarah Verduzco DO Appointment Request 10/22/2024 Refill [facility] [address] [place] [address] Sarah Verduzco DO 10/06/2024 Refill [facility] [address] [place] [address] Sarah Verduzco, 10/05/2024 Refill [facility] 230 [place] [address] Sarah Verduzco DO from Last 3 Months [...] Office Visit [facility] OPTOMETRY [address] [place] [address] Cindy Meek, OD [address] [place] [address] 02/08/2025 10:00 AM EDT Clinical Support [facility]ICINE 230 [place] [address] Lauryn Cunningham, RN Health Maintenance Due Date [...] EDT Narrative 12/30/2024 8:25 AM EDT ? [facility] ?[address] ?[place] [address] ? CT Scan Report ? Signed ? Patient: Fan,Miryam ?MR#: [id number] ?? 06 ? : 1965 ?Acct:[id number] ? Age/Sex: 59 / F ?ADM Date: 12/29/24 ? Loc: HO.CT ? Attending Dr: Hardik Jiang MD ? Ordering Physician: Hardik Jiang MD ?? Date of Service: 12/29/24 ?? Procedure(s): CT pelvis wo IV con ?? Accession Number(s): [id number] ? cc: Sarah Verduzco DO; Hardik Jiang MD ? Report Number: ?? [id number]: Total DLP = ??510.00 mGy-cm ? CLINICAL [...] ? DD/ 3 ? TD/TT: 12/30/24823 ? [employer] Customer Service: ? Procedure Note Jamie, Image - 12/30/[address] [address] [address] Scan Report Signed Patient: Marco Fan#: [id number] 06 : 1965Acct:[id number] Age/Sex: 59 / FADM Date: 12/29/24 Loc: HO.CT Attending Dr: Hardik Jiang MD Ordering Physician: Hardik Jiang MD Date of Service: 12/29/24 Procedure(s): CT pelvis wo IV con Accession Number(s): [id number] cc: Sarah Verduzco DO; Hardik Jiang MD Report Number: [id number]: Total DLP = 510.00 mGy-cm CLINICAL HISTORY: [...] in OV> 12/30/24824 DD/ 3 TD/TT: 12/30/24823 [employer] Customer Service: [facility] External Provider IMG CT PROCEDURES Edited Result - Final * POCT NEREYDA-14 Urine Drug Screen (11/07/2024 2:06 PM EST) Oxycodone Screen, Urine Positive Urine Urine specimen obtained by clean catch procedure / Unknown 11/07/2024 2:06 PM EST Narrative Lauryn Cunningham RN - 11/07/2024 2:06 PM EST UTOX cup Lot#[id number] Exp. 05/03/26 Internal Pass Control Sarah Verduzco DO POINT OF CARE TEST ENTER/DAVID T ORDERABLES Final Result * US Pelvis Limited (10/27/2024 1:01 PM EST) Anatomical Region Laterality Modality Pelvis Ultrasound 10/27/2024 1:01 PM EST Narrative 10/27/2024 1:01 PM EST ? [facility] [place] [facility] ?[address] ?[place] [address] ? Ultrasound Report ? Signed ? Patient: Fan,Miryam ?MR#: [id number] ?? 06 ? : 1965 ?Acct:[id number] ? Age/Sex: 58 / F ?ADM Date: 10/27/24 ? Loc: HO.US ? Attending Dr: Laurent Tatum WEDDING PHOTOGRAPHER ? Ordering Physician: LAURENT TATUM NP ?? Date of Service: 10/27/24 ?? Procedure(s): US pelvic limited ?? Accession Number(s): [id number] ? cc: Sarah Verduzco DO; LAURENT TATUM [...] DD/ 1301 ? TD/TT: 10/27/24 1301 ? [employer] Customer Service: ? Procedure Note Nitin Ayala - 10/27/[address] [address] Ultrasound Report Signed Patient: Miryam FanMR#: [id number] 06 : 1965Acct:[id number] Age/Sex: 58 / FADM Date: 10/27/24 Loc: HO.US Attending Dr: Laurent Tatum NP Ordering Physician: LAURENT TATUM NP Date of Service: 10/27/24 Procedure(s): US pelvic limited Accession Number(s): [id number] cc: Sarah Verduzco DO; TATUM,LAURENT WEDDING PHOTOGRAPHER CLINICAL HISTORY: ?hernia R lower or upper [...] 10/27/24 1301 DD/ 1301 TD/TT: 10/27/24 1301 [employer] Customer Service: us Laurent Megan ANP IMG US PROCEDURES Edited Result - Final * BI Mammogram Screening Tomosynthesis Bilateral (06/22/2024 9:45 AM EDT) Anatomical Region Laterality Modality Breast Bilateral Mammography 06/22/2024 9:45 AM EDT Narrative 07/04/2024 6:01 PM EDT ? [facility] ? [address] ?[place] [address] ? Mammography Report ? Signed ? Patient: Meng,Miryam ?MR#: [id number] ?? 06 ? : 1965 ?Acct:[id number] ? Age/Sex: 58 / F ?ADM Date: 10//24 ? Loc: HO.MAMMO ? Attending Lelia Verduzco DO ? Ordering Physician: Sarah Verduzco DO ?Results: 1N ?? egative ? Date of Service: 06/22/24 ?Follow Up: 1 Year From Orig ?? inal Mammogram ? Procedure(s): MM tomosynthesis screening BI ?? Accession Number(s): [id number] ? cc: Sarah Verduzco DO ? EXAMINATION: [...] DD/ 0945 ? TD/TT: 06/22/24 0958 ? [employer] Customer Service: ? Procedure Note Jamie, Image - 07/04/2024 [facility] [address] [place], [place] [address] Mammography Report Signed Patient: Marco Fan#: [id number] 06 : 1965Acct:[id number] Age/Sex: 58 / FADM Date: 06/22/24 Loc: HO.MAMMO Attending Dr: Sarah Verduzco DO Ordering Physician: Sarah Verduzcoults: 1N egative Date of Service: 06/22/24Follow Up: 1 Year From Orig inal Mammogram Procedure(s): MM tomosynthesis screening BI Accession Number(s): [id number] cc: Sarah Verduzco DO EXAMINATION: MM SCREENING [...] OV> 07/04/24 1757 DD/ TD/TT: 06/22/24 0958 [employer] Customer Service: us Sarah Verduzco DO IMG BI PROCEDURES Edited Res ult - Final * Hepatitis C Antibody with Reflex to HCV, RNA, Quantitative, Real-Time PCR (05/04/2024 12:27 PM EDT) Hepatitis C Antibody Nonreactive Nonreactive [facility] Comment:Antibodies to HCV no t detected; does not exclude early acuteHCV infection. Blood Venous blood specimen / Unknown 05/04/2024 12:27 PM EDT 05/04/2024 1:01 PM EDT Sarah Verduzco LAB BLOOD ORDERABLES Final R esult Performing Organization Address [facility]/ZIP Co de Phone Number [facility] [address] [place] [phone] * HIV-1/2 Antigen and Antibodies, Fourth Generation, with Reflexes (05/04/2024 12:27 PM EDT) HIV AB/AG Nonreactive Nonreactive [facility] Comment:HIV-1 p24 Ag and/or HIV-1/HIV-2 Ab not detected.A test result that is nonreactive does not exclude thepossibility of exposure to or infection with HIV-1 and/orHIV-2. Nonreactive results in this assay for individualswith prior exposure to HIV-1 and/or HIV-2 may be due toantigen and antibody levels that are below the limit ofdetection of this assay.The [email or web address] HIV Ag/Ab Combo assay result andsupplemental assay results should be interpreted inconjunction with the patient's clinical presentation,history and other laboratory results. If the results areinconsistent with clinical evidence, additional testing issuggested to confirm the result. Blood Venous blood specimen / Unknown 05/04/2024 12:27 PM EDT 05/04/2024 1:01 PM EDT Sarah Verduzco LAB BLOOD ORDERABLES Final R esult Performing Organization Address City/[facility]/ZIP Co de Phone Number [facility] [address] [place] [address] [phone] * Hm Colonoscopy (03/24/2017 8:58 AM EDT) us Historical Provider MD HEALTH MAINTENANCE Final Result from Last 3 Months or Most Recently Relevant to Health Maintenance Insurance [facility] Care Teams Rodbuster Relationship Specialty Start Date End Date Sarah Verduzco DO [address] [place] [address] PCP - General Family Medicine 11/21/15
--- OUTSIDE RECORDS SUMMARY | 2025-01-03 18:45 | XMS_ITS | Encounter Summary ---
Author Organization [employer] Address 75 [facility] 7t [place] [address] Care Team Providers Care Flamer Sealer Name Role Phone Sarah Verduzco DO Primary Care Provider + [phone] Reason for Visit * Reason Onset Date Comments Med Refill 03/20/2023 Encounter Details Date Type Department Care Team (Late st Contact Info) Description 03/20/2023 Telephone [facility] MEDICINE 230 [place], [place] [phone] Sarah Verduzco DO 230 [place], [place] [phone] Med Refill Social History Tobacco Use Types [...] 50 mg tablet to be sent to [facility]/pharmacy #[id number] -[place], [place] - [address] documented in this encounter Plan of Treatment Upcoming Encounters Date Type Department Care Team (Late st Contact Info) Description 01/25/2025 10:30 AM EDT Office Visit [facility] OPTOMETRY [address] [place] [address] Cindy Meek, OD 230 [place], [place] [phone] 02/08/2025 10:00 AM EDT Clinical Support [facility] MEDICINE [address] [place], [place] [phone] Lauryn Cunningham RN documented as of this encounter Visit Diagnoses Not on filedocumented in this encounter Additional Health Concerns Assessment Noted Time PHQ-9 Depression Total Score: 16 023 10:36 AM EDT documented as of this encounter Care Teams Flamer Sealer Relationship Specialty Start Date End Date Sarah Verdzuco DO [address] [place], [place] [phone] PCP - General Family Medicine 11/21/15 documented as of this encounter
--- OUTSIDE RECORDS SUMMARY | 2025-01-03 18:45 | XMS_ITS | Encounter Summary ---
Author Organization [employer] Address 75 [facility] 7t [place] [address] Care Team Providers Care Clay Preparation Supervisor Name Role Phone MaddieSarah arriaga Primary Care Provider + [phone] Reason for Visit * Reason Comments Med Refill Encounter Details Date Type Department Care Team (Late Contact Info) Description 04/19/2023 Refill [facility] MEDICINE [address] [place] [address] Alexa Padgett FNP [address] [place] [address] Dept [place] [address] Chronic bilateral low back pain without sciatica [...] Description 01/25/2025 10:30 AM EDT Office Visit [facility] OPTOMETRY [address] [place], [place] [phone] Fantasma, Cindy, OD [address] [place], [place] [phone] 02/08/2025 10:00 AM EDT Clinical Support [facility] MEDICINE [address] [place] [address] Lauryn Cunningham RN documented as of this encounter Visit Diagnoses Diagnosis Chronic bilateral low back pain without sciatica documented in this encounter Additional Health Concerns Assessment Noted Time PHQ-9 Depression Total Score: 16 023 10:36 AM EDT documented as of this encounter Care Teams Clay Preparation Supervisor Relationship Specialty Start Date End Date Sarah Verduzco DO [address] [place] [address] PCP - General Family Medicine 11/21/15 documented as of this encounter
== END 2025-01-03 08:38 | disposition home or self-care (01) ==
LOC: HO.LNP 08:37
PROVIDERS: PCP Family Medicine; Visit Provider Urology
DX: N39.0 Urinary tract infection, site not specified (principal)
CPT/HCPCS: 81003; 87086

== ENCOUNTER 2025-01-26 09:53 | Outpatient (AMB) | payer OTHER, SELFPAY ==
--- NOTE | 2025-01-26 09:58 | A.OFFVIS_ITS ---
Vital Signs 3 01/26/25 09:59 Height 4 ft 11 in Weight 134 lb BMI 27.1 BP 123/67 Blood Pressure Location Lt brachial Position Sitting Pulse 74 Intake Visit Reasons: s/p ct 12/29 Intake Note: Patient is seen in office for CT scan results, following incisional hernia. Pt c/o: no changes here for results CT:12/30/24 Electrical Appliance Mechanic Required: No Accompanied by: Self / Same As Patient Allergies Iodinated Contrast Media [CONTRAST, IV] Allergy (Intermediate, Verified 01/03/25 09:33) HIVES iopromide [From ULTRAVIST] Allergy (Intermediate, Verified 01/03/25 09:33) HIVES ibuprofen [From MOTRIN] Adverse Reaction (Intermediate, Verified 01/03/25 09:33) NAUSEA & VOMITING HPI Comments Details: 58-year-old female patient returning for follow-up examination and review of CT abdomen and pelvis. She previously was evaluated on 11/10/2024 with complaints of abdominal pain in the right lower quadrant. She reports the pain developing starting several months prior but denies any recent injury or surgery in this location. She does report a previous hysterectomy through a Pfannenstiel incision. She reports when the pain is severe she needs to massage the right lower quadrant to relieve the pain. She has not felt a lump in this location. Workup with an ultrasound of the abdomen did show evidence of a fascial defect with fatty tissue prolapsing through. Findings were suggestive of a hernia. She is not exactly sure where this is located. Since her last visit she now reports pain mainly in the left lower quadrant radiating into the back possibly coming from the back and radiating into the abdomen left lower quadrant. She also reports pain with ambulating in the left leg extending down from the groin into the leg. She denies any pain in the right side at this time. Review of CT of the pelvis reveals no evidence of hernia on either the right or left lower quadrants. Review of previous lumbar MRIs seems to indicate bulging discs in the lower lumbar spine which may be causing the patient's left lower quadrant and left extremity pain. 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 Mother History of heart attack Social History Household Members: None Housing: Apartment Alcohol intake: never Patient Tobacco Use Status: Never used Tobacco Review of Systems Const All systems reviewed & are unremarkable except as noted in HPI and below Physical Exam Vital Signs: Last Vital Signs Pulse 74 01/26/25 09:59 BP 123/67 01/26/25 09:59 BMI result Body Mass Index 27.1 Const General: no acute distress Nutritional Appearance: well nourished Orientation/consciousness: patient oriented x3 Resp Effort & Inspection: normal respiratory effort GI Inspection: Yes normal to inspection Palpation (GI): Soft to palpation, Tenderness to palpation present (GI) in the LLQ; with no rebound tenderness, no guarding, not rigid, no hernias and no masses General: Yes CVA tenderness Back/Spine/Pelvis Other: Palpable tenderness in the lower lumbar midline spine with radiation of the tenderness into the abdomen. Back: CVA tenderness Back/spine/pelvis image: 2 1. Area of tenderness lower spine left greater than right Neuro General: patient oriented x3 Assessment & Plan Assessment & Plan (1) Arthropathy of lumbar facet joint: Code(s): M47.816 - Spondylosis without myelopathy or radiculopathy, lumbar region Category: Medical Plan 59-year-old female patient presenting for evaluation of possible abdominal wall hernia. Examination and follow-up CT of the pelvis reveals no definite hernia. Patient's symptoms now are more on the left side than the right side and examination does reveal spinal tenderness in the lumbar spine. She did have previous evidence of disc herniation by MRI and may need to be evaluated by spinal surgery service. No surgical intervention is recommended for her abdominal complaints. She should follow up as needed. Coding Level of Care Code Est Pt Level 3 (77539) Diagnoses Arthropathy of lumbar facet joint M47.816
[2025-01-26 09:59] VITALS: BP 123/67; PULSE 74; BMI 27.1
--- OUTSIDE RECORDS SUMMARY | 2025-01-26 10:48 | XMS_ITS | Encounter Summary ---
Author Organization [employer] Address [address] [facility] [address] 7t [place] [address] Care Team Providers Care Wagon Driller Name Role Phone Sarah Verduzco DO Primary Care Provider [phone] Reason for Visit * Reason Comments Med Refill Encounter Details Date Type Department Care Team ([facility] Contact Info) Description 12/06/2024 Refill [facility] MEDICINE [address] [place], [place] [phone] Sarah Verduzco DO [address] [place], [place] [phone] Social History Tobacco Use Types Packs/Day Years [...] Care Team (Late st Contact Info) Description 02/08/2025 10:00 AM EDT Clinical Support [facility] MEDICINE [address] [place] [address] Lauryn Cunningham RN 07/28/2025 11:00 AM EST Office Visit [facility] OPTOMETRY [address] [place] [address] Fantasma, Cindy, OD [address] [place] [address] documented as of this encounter Visit Diagnoses Not on filedocumented in this encounter Additional Health Concerns Assessment Noted Time PHQ-9 Depression Total Score: 20 025 11:28 AM EST documented as of this encounter Care Teams Wagon Driller Relationship Specialty Start Date End Date Sarah Verduzco DO [address] [place] [address] PCP - General Family Medicine 11/21/15 documented as of this encounter
--- OUTSIDE RECORDS SUMMARY | 2025-01-26 10:48 | XMS_ITS | Encounter Summary ---
Author Organization [employer] Address [address] [facility] [address] 7[address] [place] [address] Care Team Providers Care Farmworker Chicken Farm Name Role Phone Sarah Verduzco DO Primary Care Provider [phone] Reason for Visit * Reason Comments Med Refill Encounter Details Date Type Department Care Team ([facility] Contact Info) Description 12/29/2024 Refill [facility] MEDICINE [address] [place], [place] [phone] Sarah Verduzco DO [address] [place], [place] [phone] Social History Tobacco Use Types Packs/Day Years [...] Description 02/08/2025 10:00 AM EDT Clinical Support [facility] MEDICINE [address] [place] [address] Lauryn Cunningham RN 07/28/2025 11:00 AM EST Office Visit [facility] OPTOMETRY [address] [place] [address] Fantasma, Cindy, OD [address] [place] [address] documented as of this encounter Visit Diagnoses Not on filedocumented in this encounter Additional Health Concerns Assessment Noted Time PHQ-9 Depression Total Score: 20 025 11:28 AM EST documented as of this encounter Care Teams Farmworker Chicken Farm Relationship Specialty Start Date End Date Sarah Verduzco DO [address] [place] [address] PCP - General Family Medicine 11/21/15 documented as of this encounter
--- OUTSIDE RECORDS SUMMARY | 2025-01-26 10:48 | XMS_ITS | Encounter Summary ---
Author Organization [employer] Address [address] [facility] 7t [place] [address] Care Team Providers Care Waste Handling Technician Name Role Phone Sarah Verduzco DO Primary Care Provider [phone] Reason for Visit * Reason Onset Date Comments Med Refill 10/20/2022 Encounter Details Date Type Department Care Team (Late Contact Info) Description 10/20/2022 Telephone [facility] MEDICINE [address] [place], [place] [phone] Sarah Verduzco DO [address] [place], [place] [phone] Med Refill Social History Tobacco Use Types [...] Department Care Team (Late Contact Info) Description 02/08/2025 10:00 AM EDT Clinical Support [facility] MEDICINE [address] [place] [address] Lauryn Cunningham, RN 07/28/2025 11:00 AM EST Office Visit [facility] OPTOMETRY [address] [place] [address] Cindy Meek, OD [address] [place] [address] documented as of this encounter Visit Diagnoses Not on filedocumented in this encounter Care Teams Waste Handling Technician Relationship Specialty Start Date End Date Sarah Verduzco DO [address] [place] [address] PCP - General Family Medicine 11/21/15 documented as of this encounter
--- OUTSIDE RECORDS SUMMARY | 2025-01-26 10:48 | XMS_ITS | Encounter Summary ---
Author Organization [employer] Address [address] [facility] 7t [place] [address] Care Team Providers Care Cloth Boil Off Machine Operator Name Role Phone Sarah Verduzco DO Primary Care Provider [phone] Encounter Details Date Type Department Care Team (Late st Contact Info) Description 12/24/2022 Orders Only [facility] MEDICINE [address] [place] [phone] Sarah Verduzco DO [address] [place] [address] Social History Tobacco Use Types Packs/Day Years [...] Description 02/08/2025 10:00 AM EDT Clinical Support [facility] MEDICINE [address] [place] [address] Lauryn Cunningham RN 07/28/2025 11:00 AM EST Office Visit [facility] OPTOMETRY [address] [place] [address] Cindy Meek, OD [address] [place] [address] documented as of this encounter Visit Diagnoses Not on filedocumented in this encounter Care Teams Cloth Boil Off Machine Operator Relationship Specialty Start Date End Date Sarah Verduzco DO 230 [place] [address] PCP - General Family Medicine 11/21/15 documented as of this encounter
--- OUTSIDE RECORDS SUMMARY | 2025-01-26 10:48 | XMS_ITS | Encounter Summary ---
Author Organization [employer] Address [address] [facility] [address] 7t [place] [address] Care Team Providers Care Quality Control Specialist Name Role Phone Sarah Verduzco DO Primary Care Provider + [phone] Reason for Visit * Reason Comments Med Refill Encounter Details Date Type Department Care Team ([facility] st Contact Info) Description 08/20/2023 Refill [facility] MEDICINE [address] [place], [place] [phone] Sarah Verduzco DO [address] [place], [place] [phone] Chronic neck pain Social History Tobacco Use [...] 08/31/2023 11:48 AM EST Referral faxed for [employer] ARCHIT[employer] services to , per provider request. documented in this encounter Plan of Treatment Upcoming Encounters Date Type Department Care Team (Late st Contact Info) Description 02/08/2025 10:00 AM EDT Clinical Support [facility] MEDICINE [address] [place] [address] Lauryn Cunningham RN 07/28/2025 11:00 AM EST Office Visit [facility] OPTOMETRY [address] [place], [place] [phone] Cindy Meek, OD [address] [place] [address] documented as of this encounter Visit Diagnoses Diagnosis Chronic neck pain Cervicalgia documented in this encounter Additional Health Concerns Assessment Noted Time PHQ-9 Depression Total Score: 24 023 8:54 AM EDT documented as of this encounter Care Teams Quality Control Specialist Relationship Specialty Start Date End Date Sarah Verduzco DO [address] [place] [address] PCP - General Family Medicine 11/21/15 documented as of this encounter
--- OUTSIDE RECORDS SUMMARY | 2025-01-26 10:48 | XMS_ITS | Encounter Summary ---
Author Organization [employer] Address [address] [facility] [address] 7[address] [place] [address] Care Team Providers Care Blanket Binder Name Role Phone Sarah Verduzco DO Primary Care Provider [phone] Encounter Details Date Type Department Care Team ([facility] st Contact Info) Description 07/27/2023 Telephone [facility] MEDICINE [address] [place], [place] [phone] Sarah Verduzco DO [address] [place], [place] [phone] Social History Tobacco Use Types Packs/Day Years [...] Description 02/08/2025 10:00 AM EDT Clinical Support [facility] MEDICINE [address] [place] [address] Lauryn Cunningham, RN 07/28/2025 11:00 AM EST Office Visit [facility] OPTOMETRY [address] [place] [address] Fantasma, Cindy, OD [address] [place], [place] [phone] documented as of this encounter Visit Diagnoses Not on filedocumented in this encounter Additional Health Concerns Assessment Noted Time PHQ-9 Depression Total Score: 24 023 8:54 AM EDT documented as of this encounter Care Teams Blanket Binder Relationship Specialty Start Date End Date Sarah Verduzco DO [address] [place] [address] PCP - General Family Medicine 11/21/15 documented as of this encounter
--- OUTSIDE RECORDS SUMMARY | 2025-01-26 10:48 | XMS_ITS | Encounter Summary ---
Author Organization [employer] Address 75 [facility] 7t [place] [address] Care Team Providers Care Melter Clerk Name Role Phone Sarah Verduzco DO Primary Care Provider [phone] Reason for Visit * Reason Comments Med Refill Encounter Details Date Type Department Care Team ([facility] Contact Info) Description 02/06/2023 Refill [facility] MEDICINE [address] [place] [phone] Sarah Verduzco DO [address] [place], [place] [phone] Chronic GERD Social History Tobacco Use Types [...] Department Care Team ([facility] Contact Info) Description 02/08/2025 10:00 AM EDT Clinical Support [facility] MEDICINE [address] [place] [address] Lauryn Cunningham, RN 07/28/2025 11:00 AM EST Office Visit [facility] OPTOMETRY [address] [place], [place] [phone] Cindy Meek, ALBINA [address] [place] [address] documented as of this encounter Visit Diagnoses Diagnosis Chronic GERD documented in this encounter Additional Health Concerns Assessment Noted Time PHQ-9 Depression Total Score: 16 023 10:36 AM EDT documented as of this encounter Care Teams Melter Clerk Relationship Specialty Start Date End Date Sarah Verduzco DO [address] [place] [address] PCP - General Family Medicine 11/21/15 documented as of this encounter
--- OUTSIDE RECORDS SUMMARY | 2025-01-26 10:48 | XMS_ITS | Encounter Summary ---
Author Organization [employer] Address [address] [facility] 7t [place] [address] Care Team Providers Care Safe Deposit Box Rental Clerk Name Role Phone Sarah Verduzco DO Primary Care Provider [phone] Reason for Visit * Reason Comments Med Refill Encounter Details Date Type Department Care Team (Late Contact Info) Description 12/19/2022 Refill [facility] MEDICINE [address] [place] [address] Sarah Verduzco DO [address] [place] [address] Social History Tobacco Use Types Packs/Day Years [...] Description 02/08/2025 10:00 AM EDT Clinical Support [facility] MEDICINE [address] [place] [address] Lauryn Cnuningham, LUISITO 07/28/2025 11:00 AM EST Office Visit [facility] OPTOMETRY [address] [place] [address] Cindy Meek, OD [address] [place] [address] documented as of this encounter Visit Diagnoses Not on filedocumented in this encounter Care Teams Safe Deposit Box Rental Clerk Relationship Specialty Start Date End Date Sarah Verduzco DO [address] [place] [address] PCP - General Family Medicine 11/21/15 documented as of this encounter
--- OUTSIDE RECORDS SUMMARY | 2025-01-26 10:48 | XMS_ITS | Encounter Summary ---
Author Organization [employer] Address [address] [facility] [address] 7[address] [place] [address] Care Team Providers Care Inspector Metal Can Name Role Phone Sarah Verduzco DO Primary Care Provider [phone] Reason for Visit * Reason Onset Date Comments Nurse Triage 07/20/2023 Encounter Details Date Type Department Care Team ([facility] st Contact Info) Description 07/20/2023 Telephone [facility] MEDICINE [address] [place], [place] [phone] Sarah Verduzco DO 230 [place], [place] [phone] Nurse Triage Social History Tobacco Use Types [...] t he electric, gas, oil or water [employer] threatened to shut off services in your [...] juice Pt agrees. Advised to come to [facility] today to be seen by provider and [...] accepted this outcome Please contact pt at [phone] documented in this encounter Plan of Treatment Upcoming Encounters Date Type Department Care Team (Late st Contact Info) Description 02/08/2025 10:00 AM EDT Clinical Support [facility] MEDICINE [address] [place] [address] Lauryn Cunningham, RN 07/28/2025 11:00 AM EST Office Visit [facility] OPTOMETRY [address] [place] [address] Cindy Meek, ALBINA 230 [place] [address] documented as of this encounter Visit Diagnoses Not on filedocumented in this encounter Additional Health Concerns Assessment Noted Time PHQ-9 Depression Total Score: 24 023 8:54 AM EDT documented as of this encounter Care Teams Inspector Metal Can Relationship Specialty Start Date End Date Sarah Verduzco DO [address] [place] [address] PCP - General Family Medicine 11/21/15 documented as of this encounter
--- OUTSIDE RECORDS SUMMARY | 2025-01-26 10:48 | XMS_ITS | Encounter Summary ---
Author Organization [email or web address] Address [address] [facility] [address] 7t [place] [address] Care Team Providers Care Business Objects Report Developer Name Role Phone Sarah Verduzco DO Primary Care Provider + [phone] Reason for Visit * Reason Comments Med Refill Encounter Details Date Type Department Care Team ([facility] Contact Info) Description 09/08/2023 Refill [facility] MEDICINE [address] [place], [place] [phone] Sarah Verduzco DO 230 [place], [place] [phone] Social History Tobacco Use Types Packs/Day Years [...] 10:00 AM EDT Clinical Support [facility] MEDICINE [address] [place] [address] Lauryn Cunningham RN 07/28/2025 11:00 AM EST Office Visit [facility] OPTOMETRY [address] [place] [address] Fantasma, Cindy, OD [address] [place] [address] documented as of this encounter Visit Diagnoses Not on filedocumented in this encounter Additional Health Concerns Assessment Noted Time PHQ-9 Depression Total Score: 24 023 8:54 AM EDT documented as of this encounter Care Teams Business Objects Report Developer Relationship Specialty Start Date End Date Sarah Verduzco DO [address] [place] [address] PCP - General Family Medicine 11/21/15 documented as of this encounter
--- OUTSIDE RECORDS SUMMARY | 2025-01-26 10:49 | XMS_ITS | Encounter Summary ---
Author Organization [employer] Address [address] [facility] [address] 7[address] [place] [address] Care Team Providers Care Multiple Drill Operator Name Role Phone Sarah Verduzco DO Primary Care Provider + [phone] Reason for Visit * Reason Comments Med Refill Encounter Details Date Type Department Care Team ([facility] Contact Info) Description 01/29/2024 Refill [facility] MEDICINE [address] [place], [place] [phone] Sarah Verduzco DO 230 [place], [place] [phone] Social History Tobacco Use Types Packs/Day Years [...] Description 02/08/2025 10:00 AM EDT Clinical Support [facility] MEDICINE [address] [place] [address] Lauryn Cunningham RN 07/28/2025 11:00 AM EST Office Visit [facility] OPTOMETRY [address] [place] [address] Fantasma, Cindy, OD 230 [place] [address] documented as of this encounter Visit Diagnoses Not on filedocumented in this encounter Additional Health Concerns Assessment Noted Time PHQ-9 Depression Total Score: 24 023 8:54 AM EDT documented as of this encounter Care Teams Multiple Drill Operator Relationship Specialty Start Date End Date Sarah Verduzco DO [address] [place] [address] PCP - General Family Medicine 11/21/15 documented as of this encounter
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
--- OUTSIDE RECORDS SUMMARY | 2025-01-26 10:49 | XMS_ITS | Encounter Summary ---
Author Organization [employer] Address [address] [place] [address] Care Team Providers Care Instant Powder Supervisor Name Role Phone Sarah Verduzco DO Primary Care Provider [phone] Reason for Visit * Reason Onset Date Comments Medication Question 03/24/2023 Encounter Details Date Type Department Care Team ([facility] st Contact Info) Description 03/24/2023 Telephone [facility] [address] [place], [place] [phone] Sarah Verduzco DO [address] [place] [address] Medication Question Social History Tobacco Use Types [...] used to receive. Please contact pt at [phone] documented in this encounter Plan of Treatment Upcoming Encounters Date Type Department Care Team (Late st Contact Info) Description 02/08/2025 10:00 AM EDT Clinical Support [facility] [address] [place] [address] Lauryn Cunningham RN 07/28/2025 11:00 AM EST Office Visit [facility] [address] [place], [place] [phone] Cindy Meek, OD [address] [place] [address] documented as of this encounter Visit Diagnoses Not on filedocumented in this encounter Additional Health Concerns Assessment Noted Time PHQ-9 Depression Total Score: 16 023 10:36 AM EDT documented as of this encounter Care Teams Instant Powder Supervisor Relationship Specialty Start Date End Date Sarah Verduzco DO [address] [place] [address] PCP - General Family Medicine 11/21/15 documented as of this encounter
--- OUTSIDE RECORDS SUMMARY | 2025-01-26 10:49 | XMS_ITS | Encounter Summary ---
Author Organization [employer] Address [address] [place] [address] Care Team Providers Care Funeral Workers Name Role Phone Sarah Verduzco DO Primary Care Provider + [phone] Reason for Visit * Reason Comments Med Refill Encounter Details Date Type Department Care Team ([facility] Contact Info) Description 04/06/[address] [facility] MED[facility]INE [address] [place], [place] [phone] Sarah Verduzco DO [address] [place], [place] [phone] Social History Tobacco Use Types Packs/Day Years [...] [facility] [address] [place] [address] Lauryn Cunningham RN 07/28/2025 11:00 AM EST Office Visit [facility]RY [address] [place] [address] Fantasma, Cindy, OD [address] [place] [address] documented as of this encounter Visit Diagnoses Not on filedocumented in this encounter Additional Health Concerns Assessment Noted Time PHQ-9 Depression Total Score: 24 023 8:54 AM EDT documented as of this encounter Care Teams Funeral Workers Relationship Specialty Start Date End Date Sarah Verduzco DO [address] [place] [address] PCP - General Family Medicine 11/21/15 documented as of this encounter
--- OUTSIDE RECORDS SUMMARY | 2025-01-26 10:49 | XMS_ITS | Encounter Summary ---
Author Organization [employer] Address [address] [place] [address] Care Team Providers Care Bilingual Sales Consultant Name Role Phone Sarah Verduzco DO Primary Care Provider + [phone] Encounter Details Date Type Department Care Team (Late st Contact Info) Description 12/22/2023 Orders Only [facility] [address] [place], [place] [phone] ProviderTristan MD Social History Tobacco Use Types [...] Description 02/08/2025 10:00 AM EDT Clinical Support [facility] [address] [place] [address] Lauryn Cunningham, LUISITO 07/28/2025 11:00 AM EST Office Visit [facility] [address] [place], [place] [phone] Cindy Meek, ALBINA [address] [place] [address] documented as of this encounter Procedures Procedure [...] documented as of this encounter Care Teams Bilingual Sales Consultant Relationship Specialty Start Date End Date Sarah Verduzco DO [address] [place] [address] PCP - General Family Medicine 11/21/15 documented as of this encounter
--- OUTSIDE RECORDS SUMMARY | 2025-01-26 10:49 | XMS_ITS | Data Portability ---
Author Organization [employer] [facility], Pr in - [facility] Address [address] [place] [phone] Care Team Providers Care Donor Services Manager Name Role Phone [facility] PRIMARY [facility] Referring Provider Assessment Encounter Date Assessment Date Assessment LastModified by Organization Details LastModified Time 03/18/2023 03/18/2023 I provided real -time medical direction via phone for this encounter, and was available for additional phone based assistance as needed. I have reviewed and agree with the Assessment and Plan as documented by the Medical Staff Services Manager. Patient given the opportunity to ask questions. Advised if develops CP/severe SOB/turning blue/uncontrolle d pain in flank/ abd or uncontrolled n/v/d or black/bloody emesis or stool/ AMS/ syncope/ hi fever unresponsive to APAP to call 911- advised close f/u with pcp and urology -verbalized understanding of instructions to the medic [email or web address] Not available 03/18/2023 12:04:35 Plan of Treatment Reminders Order Date Submit Date Provider Last Modified By Organization Details Last Modified Time Details Appointments None recorded. Lab rapid SARS CoV 2 Ag, QL IA, respiratory specimen 2023 024 [email or web address] [facility], [address] [place] [address], [id number] 4 18:19:53 rapid flu (A+B) 2023 024 [email or web address] [facility], [address] [place] [address], [id number] 4 18:19:51 culture, urine 2022 023 REINALDO [facility] (Centralized Electronic Ordering - All Locations), Patient Can Go To The Location Of Their Choice, [address] 3 15:12:44 urinalysis, dipstick 2022 023 [email or web address] 0 [facility], [address] [place] [address], [id number] 3 17:08:56 rapid SARS CoV 2 Ag, QL IA, respiratory specimen 2022 023 [email or web address] 0 [facility], [address] [place] [address], [id number] 3 12:05:04 rapid flu (A+B) 2022 023 [email or web address] 0 [facility], [address] [place] [address], [id number] 3 12:05:04 Referral None recorded. Procedures None recorded. Surgeries None recorded. Imaging None recorded. Medication Orders Valtrex 1 gram tablet 2023 024 [facility] #[id number], [address] [place], [address], 4 18:10:29 Bactrim DS 800 mg-160 mg tablet 2022 023 [email or web address] 0 Not available 3 11:58:51 Bactrim DS 800 mg-160 mg tablet 2022 023 [facility] #[id number], [address] [place], [address], 3 12:01:26 Patient TargetsNo targets recorded. Patient [...] Leukocytes 3+ Not Available [facility] [address] [place] [address], [id number] 03/18/2023 12:05:18 03/18/20 23 03/18/2023 urina lysis , dipst ick Nitrite negati ve Not Available [facility] [address] [place] [address], [address] 03/18/2023 12:05:18 03/18/20 23 03/18/2023 urina lysis , dipst ick Urobilinogen neg Not Available [facility] [address] [place] [address], [address] 03/18/2023 12:05:18 03/18/20 23 03/18/2023 urina lysis , dipst ick Protein trace Not Available Main - [facility] [address] [place] [address], [place], [address] 03/18/2023 12:05:18 03/18/20 23 03/18/2023 urina lysis , dipst ick pH 6 Not Available Main - Ins [address], [address] 03/18/2023 12:05:18 03/18/20 23 03/18/2023 urina lysis , dipst ick Blood 4+ Not Available Main - [facility] [address], [address] 03/18/2023 12:05:18 03/18/20 23 03/18/2023 urina lysis , dipst ick Specific [place] 1.025 Not Available [facility] [address] [place] [address], [address] 03/18/2023 12:05:18 03/18/20 23 03/18/2023 urina lysis , dipst ick Ketone neg Not Available Main - Ins [address], [address] 03/18/2023 12:05:18 03/18/20 23 03/18/2023 urina lysis , dipst ick Bilirubin trace Not Available Main - [facility] [address] [place] [address], [address] 03/18/2023 12:05:18 03/18/20 23 03/18/2023 urina lysis , dipst ick Glucose neg Not Available Main - Ins [address], [address] 03/18/2023 12:05:18 03/18/20 23 03/18/2023 urina lysis , dipst ick Appearance clear Not Available [facility] [address] [place] [address], [address] 03/18/2023 12:05:18 03/18/20 23 03/18/2023 urina lysis , dipst ick Color light yellow Not Available [facility] [address] [place] [address], [address] 03/18/2023 12:05:18 03/18/20 23 03/18/2023 rapid flu (A+B) Flu negati ve Not Available [facility] [address] [place] [address], [address] 03/18/2023 12:04:44 03/18/20 03/18/2023 rapid SARS CoV 2 Ag, QL IA, respi rator y speci men rapid SARS CoV 2 Ag, QL IA, respiratory specimen negati ve Not Available [facility] ed [address] [place] [address], [address] 03/18/2023 12:04:39 11/03/19 24 11/03/2023 rapid flu (A+B) Flu negati ve Not Available [facility] ed [address] [place] [address], [address] 11/03/2023 18:19:38 11/03/19 24 11/03/2023 rapid SARS CoV 2 Ag, QL IA, respi rator y speci men rapid SARS CoV 2 Ag, QL IA, respiratory specimen negati ve Not Available [address], [address] 11/03/2023 18:19:30 Result Notes None recorded. Medical [...] Not available Not available Not available 03/18/2023 [id number] 2003 SNOMED Kristyn Paredes MD [address] [place] [address],[address], [place], [address] [address] [employer] [facility] 3 11:50:26 Medications Name [...] /min 101 mm[Hg] 73 mm[Hg] Not Available [employer] 3 11:45:05 Date Recorded Body weight Provider Name an d Address Organization Details Last Updated DateTime 03/18/2023 43838.53 g Sonal Guthrie [address] [place] [address],[address], [place], [address], [place] - [employer] [facility] 03/18/2023 17:03:15 Date Recorded Heart rate Body height Oxygen saturation Oxygen saturation in Arterial blood by Pulse oximetry Body weight Body temperature Respiratory rate Systolic blood pressure Diastolic blood pressure Provider Name and Address Organization Details Last Updated DateTime 4 67 /min 149.86 cm 96 % 96 % 23702.0 4 g 98.5 [degF] 18 /min 106 mm[Hg] 74 mm[Hg] Not Available [employer] 4 18:02:40 Social History None recorded. Functional Status None recorded. Mental Status None recorded. Family History Nothing Reported. Medical History No medical history recorded. Gynecological HistoryNo gynecological history recorded. Obstetrics History GPAL:G 0 P 0 0 0 0 Past Encounters Encounter ID Performer Location Encounter Start Date Encounter Closed Date Diagnosis/Indication Diagnosis SNOMED-CT Code Diagnosis ICD10 Code Diagnosis Note [id number] Kristyn Paredes MD [facility] - [employer] [address] [place] [phone] 03/18/2023 11:44:55 03/19/2023 10:13:17 Viral upper respiratory tract infection 195341236 J06.9 Advised if has eye s/s - redness/ d/c or visual changes pls call ophthalmol ogy eliazar/ continue claritin and fluticason e daily- Urinary symptoms 3389287 08 R39.9 has recurrent UTI but other [...] GAEL FIELDS MD [facility] - [facility] [address] [place] [address] 11/03/2023 18:02:26 11/04/2023 12:39:09 Herpes labialis 2072470 B00.1 Evaluation in the field was performed by my men's garment fitter colleague, as noted above, I provided real-time [...] Recorded Advance Directives Directive None Recorded Payers Insurance Date Sequence Insurance Name Policy Number Policy Mccollum Covered Member ID Mccollum Member ID Guarantor Name 01/17/2024 1 [facility] - DOS ON OR AFTER 2022 - DUAL ELIGIBLE - JAIL OPTIONS AND ONE CARE (MEDICARE REPLACEMENT/ADV ANTAGE - HMO) Miryam Fan [id number] Miryam Fan Notes Date Note Type Note [...] .................. .................. .................. .................. .................. .................. ............... Medical Staff Services Manager Note From Courtney Gomez: [facility] Medical Staff Services Manager BitaCici Gomez CCA1 dispatched to a [facility] for a 57 yof C/O sinus pain/pressure. [...] urine appeared abnormal. Urine dip in [facility]. [facility] consulted; pt was given 800 mg bactrim PO, and urine sample was brought to [facility] laboratory for culture. She was instructed to [...] was given ( no prior visits in [place] ) but has had bactrim in the past without problems. She reports Temp 101 this am took 1 gram Tylenol- no afebrile Kristyn Paredes MD [address] [facility],[address], [place], [phone], [employer] 03/18/2023 17:09:19 11/03/2023 text/html HPI: Hx GERD, Anxiety, cervical deg. disc disease. .................. .................. .................. .................. .................. .................. .................. ............... CRC Nurse Triage Notes (Fiona Nieves): Comments: HPI reviewed. No additional information needed to process .................. .................. .................. .................. .................. .................. .................. ............... Medical Staff Services Manager Note From Rubi Hoffman: Sent to [...] covid test: neg; Rapid flu test: neg; [facility] consulted and pt advised it seems lesions are cold sores. [facility] sends script to pt's pharmacy. Pt advised she should drink lots of fluid, take Tylenol for pain, and pt should start seeing improvement in 48hrs. Red flags discussed. Pt has no further questions. .................. .................. .................. .................. .................. .................. .................. ............... Disposition: Fulfilled GAEL FIELDS MD [address] [facility],[address], [place], [address], Ecelles Carson 11/03/2023 22:21:59 OBGyn Episode No OBEpisode recorded.
--- OUTSIDE RECORDS SUMMARY | 2025-01-26 10:49 | XMS_ITS | Encounter Summary ---
Author Organization [employer] Address [address] [place] [address] Care Team Providers Care Moisture Meter Reader Name Role Phone Sarah Verduzco DO Primary Care Provider [phone] Reason for Visit * Reason Onset Date Comments Appointment Request 08/22/2024 Encounter Details Date Type Department Care Team ([facility] Contact Info) Description 08/22/2024 Telephone [facility] MEDICINE [address] [place], [place] [phone] Sarah Verduzco DO [address] [place], [place] [phone] Appointment Request Social History Tobacco Use Types [...] DME RX Contact: Jerry, On behalf of [facility]'s Care Management staff [facility], we are requesting Durable Medical Equipment (DME) for the pt .I can facilitate the ordering process through our approved vendor (such as [employer], [employer], etc.), but a prescription for the DME item(s) is needed. The DME item(s)requested are - Shower chair - Cane Kindly send the prescriptions to ([email or web address]) for processing the DME referral on behalf of the patient. Please also provide the patient's current Height and Weight. Should you have any inquiries regarding this request, feel free to contact me [phone]. Thank you for your assistance in this matter. * Telephone Encounter - Priya Fritz RN - 09/01/2024 10:02 AM EST ----- Message from Lisa Kenny sent at 08/31/2024 3:20 PM EST ----- Regarding: DME RX Contact: Jerry, On behalf of [facility]'s Care Management staff [facility] Care, we are requesting Durable Medical Equipment (DME) for the pt .I can facilitate the ordering process through our approved vendor (such as [employer], [employer], etc.), but a prescription for the DME item(s) is needed. The DME item(s)requested are - Shower chair - Cane Kindly send the prescriptions to [email or web address] for processing the DME referral on behalf of the patient. Please also provide the patient's current Height and Weight. Should you have any inquiries regarding this request, feel free to contact me [phone]. Thank you for your assistance in this matter. * Telephone Encounter - Thuy Nails - 08/22/2024 11:20 AM EST Tc from pt requesting to r/s pain management appointment from 08/23. Contact pt at [phone] documented in this encounter Plan of Treatment Upcoming Encounters Date Type Department Care Team (Late st Contact Info) Description 02/08/2025 10:00 AM EDT Clinical Support [facility] MED[facility] [address] [place], [place] [phone] Lauryn Cunningham, LUISITO 07/28/2025 11:00 AM EST Office Visit [facility] [address] [place] [address] Cindy Meek, OD [address] [place] [address] documented as of this encounter Visit Diagnoses Not on filedocumented in this encounter Additional Health Concerns Assessment Noted Time PHQ-9 Depression Total Score: 11 024 10:42 AM EDT documented as of this encounter Care Teams Moisture Meter Reader Relationship Specialty Start Date End Date Sarah Verduzco DO [address] [place] [address] PCP - General Family Medicine 11/21/15 documented as of this encounter
--- OUTSIDE RECORDS SUMMARY | 2025-01-26 10:49 | XMS_ITS | Encounter Summary ---
Author Organization [employer] Address [address] [place] [address] Care Team Providers Care Insurance Professional Name Role Phone Sarah Verduzco DO Primary Care Provider [phone] Reason for Visit * Reason Onset Date Comments Med Refill 01/25/2025 Encounter Details Date Type Department Care Team ([facility] Contact Info) Description 01/25/2025 Telephone [facility] MEDICINE [address] [place], [place] [phone] Sarah Verduzco DO [address] [place], [place] [phone] Med Refill Social History Tobacco Use Types [...] Miscellaneous Notes * Telephone Encounter - Sarah Dyson LPN - 01/25/2025 12:26 PM EDT Medication was sent to [facility] on 11/29/24 with 5 refills. * Telephone Encounter - Lynn Denton - 01/25/2025 12:16 PM EDT TC from pt requesting medication refill. Medications needing refill : hydroquinone 4 % cream To be sent to: [facility] - [place], [place] - [address] [facility] documented in this encounter Plan of Treatment Upcoming Encounters Date Type Department Care Team (Late st Contact Info) Description 02/08/2025 10:00 AM EDT Clinical Support [facility] MEDICINE [address] [place] [address] Lauryn Cunningham, RN 07/28/2025 11:00 AM EST Office Visit [facility] OPTOMETRY [address] [place] [address] Cindy Meek, OD [address] [place] [address] documented as of this encounter Visit Diagnoses Not on filedocumented in this encounter Additional Health Concerns Assessment Noted Time PHQ-9 Depression Total Score: 20 11/14/ 025 11:28 AM EST documented as of this encounter Care Teams Insurance Professional Relationship Specialty Start Date End Date Sarah Verduzco DO [address] [place] [address] PCP - General Family Medicine 11/21/15 documented as of this encounter
--- OUTSIDE RECORDS SUMMARY | 2025-01-26 10:49 | XMS_ITS | Encounter Summary ---
Author Organization [employer] Address [address] [facility] 7t [place] [address] Care Team Providers Care Marine Equipment Engineer Name Role Phone Sarah Verduzco DO Primary Care Provider [phone] Reason for Visit * Reason Comments Med Refill Encounter Details Date Type Department Care Team ([facility] Contact Info) Description 10/21/2022 Refill [facility] MED[facility]INE [address] [place], [place] [phone] Елена Olson MD [address] [place], [place] [phone] Sinusitis, unspecified chronicity, unspecified location Social History [...] Description 02/08/2025 10:00 AM EDT Clinical Support [facility] [address] [place] [address] Lauryn Cunningham RN 07/28/2025 11:00 AM EST Office Visit [facility] OPT[facility] [address] [place] [phone] Cindy Meek, ALBINA [address] [place] [address] documented as of this encounter Visit Diagnoses Diagnosis Sinusitis, unspecified chronicity, unspecified location documented in this encounter Care Teams Marine Equipment Engineer Relationship Specialty Start Date End Date Sarah Verduzco DO [address] [place] [address] PCP - General Family Medicine 11/21/15 documented as of this encounter
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
--- OUTSIDE RECORDS SUMMARY | 2025-01-26 10:49 | XMS_ITS | Encounter Summary ---
Author Organization [employer] Address [address] [facility] [address] [facility] [address] [place] [address] Care Team Providers Care Internet Site Designer Name Role Phone Sarah Verduzco DO Primary Care Provider [phone] Reason for Visit * Reason Onset Date Comments Med Refill 03/20/2023 Encounter Details Date Type Department Care Team (Late st Contact Info) Description 03/20/[address] [facility] MEDICINE [address] [place], [place] [phone] Sarah Verduzco DO [address] [place], [place] [phone] Med Refill Social History Tobacco Use Types [...] 50 mg tablet to be sent to [facility]/pharmacy #[id number] -[place], [place] - [facility] [address] documented in this encounter Plan of Treatment Upcoming Encounters Date Type Department Care Team (Late st Contact Info) Description 02/08/2025 10:00 AM EDT Clinical Support [facility] MEDICINE [address] [place] [address] Lauryn Cunningham, RN 07/28/2025 11:00 AM EST Office Visit [facility] OPTOMETRY [address] [place] [address] Cindy Meek, ALBINA [address] [place] [address] documented as of this encounter Visit Diagnoses Not on filedocumented in this encounter Additional Health Concerns Assessment Noted Time PHQ-9 Depression Total Score: 16 023 10:36 AM EDT documented as of this encounter Care Teams Internet Site Designer Relationship Specialty Start Date End Date Sarah Verduzco DO [address] [place] [address] PCP - General Family Medicine 11/21/15 documented as of this encounter
--- OUTSIDE RECORDS SUMMARY | 2025-01-26 10:49 | XMS_ITS | Encounter Summary ---
Author Organization [employer] Address [address] [facility] 7t [place] [address] Care Team Providers Care Inspector Automatic Typewriter Name Role Phone Sarah Verduzco DO Primary Care Provider [phone] Reason for Visit * Reason Comments Med Refill Encounter Details Date Type Department Care Team (Late Contact Info) Description 12/04/2022 Refill [facility] [address] [place] [address] Sarah Verduzco DO [address] [place] [address] Social History Tobacco Use Types Packs/Day Years [...] Description 02/08/2025 10:00 AM EDT Clinical Support [facility] [address] [place] [address] Lauryn Cunningham, LUISITO 07/28/2025 11:00 AM EST Office Visit [facility] OPTOMETRY [address] [place] [address] Cindy Meek, OD [address] [place] [address] documented as of this encounter Visit Diagnoses Not on filedocumented in this encounter Care Teams Inspector Automatic Typewriter Relationship Specialty Start Date End Date Sarah Verduzco DO [address] [place] [address] PCP - General Family Medicine 11/21/15 documented as of this encounter
--- OUTSIDE RECORDS SUMMARY | 2025-01-26 10:49 | XMS_ITS | Encounter Summary ---
Author Organization [employer] Address [address] [place] [address] Care Team Providers Care Intern Architect Name Role Phone Sarah Verduzco DO Primary Care Provider + [phone] Reason for Visit * Reason Comments Med Refill Encounter Details Date Type Department Care Team ([facility] Contact Info) Description 08/21/2024 Refill [facility] MEDICINE [address] [place], [place] [phone] Sarah Verduzco DO [address] [place], [place] [phone] Social History Tobacco Use Types Packs/Day Years [...] Description 02/08/2025 10:00 AM EDT Clinical Support [facility] MEDICINE [address] [place] [address] Lauryn Cunningham RN 07/28/2025 11:00 AM EST Office Visit [facility] OPTOMETRY [address] [place] [address] Fantasma, Cindy, OD [address] [place] [address] documented as of this encounter Visit Diagnoses Not on filedocumented in this encounter Additional Health Concerns Assessment Noted Time PHQ-9 Depression Total Score: 11 024 10:42 AM EDT documented as of this encounter Care Teams Intern Architect Relationship Specialty Start Date End Date Sarah Verduzco DO [address] [place] [address] PCP - General Family Medicine 11/21/15 documented as of this encounter
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
--- OUTSIDE RECORDS SUMMARY | 2025-01-26 10:49 | XMS_ITS | Encounter Summary ---
Author Organization [employer] Address [address] [place] [address] Care Team Providers Care Thread Twister Name Role Phone Sarah Verduzco DO Primary Care Provider + [phone] Reason for Visit * Reason Comments Med Refill Encounter Details Date Type Department Care Team ([facility] Contact Info) Description 10/05/2024 Refill [facility] [address] [place], [place] [phone] Sarah Verduzco DO [address] [place], [place] [phone] Social History Tobacco Use Types Packs/Day Years [...] Description 02/08/2025 10:00 AM EDT Clinical Support [facility] [address] [place] [address] Lauryn Cunningham RN 07/28/2025 11:00 AM EST Office Visit [facility] [address] [place] [address] Fantasma, Cindy, OD [address] [place] [address] documented as of this encounter Visit Diagnoses Not on filedocumented in this encounter Additional Health Concerns Assessment Noted Time PHQ-9 Depression Total Score: 11 024 10:42 AM EDT documented as of this encounter Care Teams Thread Twister Relationship Specialty Start Date End Date Sarah Verduzco DO [address] [place] [address] PCP - General Family Medicine 11/21/15 documented as of this encounter
--- OUTSIDE RECORDS SUMMARY | 2025-01-26 10:49 | XMS_ITS | Clinical Summary ---
Author Organization [address] [facility] Address [address] [place] [address] Phone Care Team Providers Care Student Support Counselor Name Role Phone Sarah Verduzco Primary Care Provider [phone] Allergies Active Allergy Reactions Criticality Noted Date [...] breath activated Inhale by mouth. 6 Active famotidine (PEPCID) 40 mg tablet Take 1 tablet (40 mg total) by mouth. 3 Active senna 8.6 mg tablet Take 1 tablet (8.6 mg total) by mouth. 3 Active sodium chloride (AYR) 0.65 % nasal drops USE 1-2 SPRAYS ON EACH NOSTRIL EVERY 2-3 HOURS NEEDED FOR NASAL CONGESTION 3 Active dicyclomine (BENTYL) 10 mg capsule Take 1 capsule (10 mg total) by mouth 3 times daily as needed. 4 01/26/20 25 Active Problems Problem Noted Date Diagnosed Date [...] study, she states it was done at [facility] neurology, we called to have it faxed over, it is dated 09/09/2023 and showed normal motor and sensory nerve conduction study. Normal EMG except may suggest mild chronic L5 radiculopathy. She also had lumbar spine MRI 07/02/2024 at [facility], there is no official report from radiology. [...] opioids 07/07/2024 Overview (08/04/2024): Dx: Rx: Last [employer] agreement: Tier II (visit every 3 months) [...] Review of the cervical spine MRI at [facility] dated 02/26/2024 shows a solid arthrodesis at [...] images of her prior C-spine MRI from [facility] 02/26/2024 that showed solid arthrodesis C6-7, right [...] of arm 08/03/2017 Mild persistent asthma 11/21/2015 Immunizations Name Administration Dates Next Due Tdap Tetanus diptheria acell ular pertussis (Boostrix; Adacel) 7yo and older 12/13/2022,06/10/2022 Surgical History Surgery Date Site/Laterality Comments HYSTERECTOMY PROCEDURE: HISTORICAL HYSTERECTOMY TUBAL LIGATION PROCEDURE: HISTORICAL TUBAL LIGATION CHOLECYSTECTOMY PROCEDURE: CO LAPAROSCOPY SURG CHOLECYSTECTOMY EYE SURGERY PROCEDURE: HISTORICAL [...] ID:[id number] Group ID:[id number] Type:Not on file Address: [place] [address] [address] [id number] Care Teams Student Support Counselor Relationship Specialty Start Date End Date Sarah Verduzco DO [address] [place] [address] PCP - General Internal Medicine 02/09/18
--- OUTSIDE RECORDS SUMMARY | 2025-01-26 10:49 | XMS_ITS | Encounter Summary ---
Author Organization [employer] Address [address] [place] [address] Care Team Providers Care Fleet Service Clerk Name Role Phone Sarah Verduzco DO Primary Care Provider + [phone] Reason for Visit * Reason Comments Med Refill Encounter Details Date Type Department Care Team ([facility] st Contact Info) Description 01/05/2024 Refill [facility] [address] [place], [place] [phone] Sarah Verduzco DO [address] [place], [place] [phone] Social History Tobacco Use Types Packs/Day Years [...] Description 02/08/2025 10:00 AM EDT Clinical Support [facility] [address] [place] [address] Lauryn Cunningham RN 07/28/2025 11:00 AM EST Office Visit [facility] [address] [place] [address] Fantasma, Cindy, OD [address] [place] [address] documented as of this encounter Visit Diagnoses Not on filedocumented in this encounter Additional Health Concerns Assessment Noted Time PHQ-9 Depression Total Score: 24 023 8:54 AM EDT documented as of this encounter Care Teams Fleet Service Clerk Relationship Specialty Start Date End Date Sarah Verduzco DO [address] [place] [address] PCP - General Family Medicine 11/21/15 documented as of this encounter
--- OUTSIDE RECORDS SUMMARY | 2025-01-26 10:49 | XMS_ITS | Encounter Summary ---
Author Organization [employer] Address [address] [place] [address] Care Team Providers Care Operations And Maintenance Manager Name Role Phone Sarah Verudzco DO Primary Care Provider [phone] Reason for Visit * Reason Comments Med Refill Encounter Details Date Type Department Care Team (Late Contact Info) Description 10/21/2022 Telephone [facility] [address] [place], [place] [phone] Sarah Verduzco DO [address] [place] [address] Med Refill Social History Tobacco Use Types [...] 10:00 AM EDT Clinical Support [facility] [address] [place] [address] Lauryn Cunningham, RN 07/28/2025 11:00 AM EST Office Visit [facility] [address] [place] [address] Cindy Meek, OD [address] [place] [address] documented as of this encounter Visit Diagnoses Not on filedocumented in this encounter Care Teams Operations And Maintenance Manager Relationship Specialty Start Date End Date Sarah Verduzco DO [address] [place] [address] PCP - General Family Medicine 11/21/15 documented as of this encounter
--- OUTSIDE RECORDS SUMMARY | 2025-01-26 10:49 | XMS_ITS | Encounter Summary ---
Author Organization [employer] Address [address] [facility] [address] [place] [address] Care Team Providers Care Silk Screen Painter Name Role Phone Sarah Verduzco DO Primary Care Provider [phone] Reason for Visit * Reason Comments Med Refill Encounter Details Date Type Department Care Team (Late Contact Info) Description 04/19/2023 Refill [facility] [address] [place] [address] Alexa Padgett FNP [address] [place] [address] Dept of Internal Medicine [place] [phone] Chronic bilateral low back pain without sciatica [...] Description 02/08/2025 10:00 AM EDT Clinical Support [facility] [address] [place] [address] Lauryn Cunningham RN 07/28/2025 11:00 AM EST Office Visit [facility] [address] [place], [place] [phone] Cindy Meek, OD [address] [place] [address] documented as of this encounter Visit Diagnoses Diagnosis Chronic bilateral low back pain without sciatica documented in this encounter Additional Health Concerns Assessment Noted Time PHQ-9 Depression Total Score: 16 023 10:36 AM EDT documented as of this encounter Care Teams Silk Screen Painter Relationship Specialty Start Date End Date Sarah Verduzco DO [address] [place] [address] PCP - General Family Medicine 11/21/15 documented as of this encounter
--- OUTSIDE RECORDS SUMMARY | 2025-01-26 10:49 | XMS_ITS | Clinical Summary ---
Author Organization [employer] Address [address] [facility] 7t [place] [address] Care Team Providers Care Edge Stainer Name Role Phone Sarah Verduzco DO Primary Care Provider [phone] Allergies Active Allergy Reactions Criticality Noted Date Comments Green Dye 07/06/2020 Other reaction(s): Hives / Skin Rash Ibuprofen Diarrhea 04/19/2018 Other reaction(s): Upset stomach Other reaction(s): Not available Other reaction(s): GI upset Iodinated Contrast Media Hives 12/13/2021 Other reaction(s): Not available Other reaction(s): hives Medications zolpidem (Ambien) 10 MG tablet Take 1 tablet by mouth at bed time. Active sodium chloride (SALINE MIST) 0.65 % nasal sprayIndications: Sinusitis, unspecified chronicity, unspecified location USE 1-2 SPRAYS ON EACH NOSTRIL EVERY 2-3 HOURS NEEDED FOR NASAL CONGESTION 44 mL 023 Active busPIRone (Buspar) 5 MG tablet Take 1 tablet by mouth 3 times daily. For anxiety 023 Active lansoprazole (Prevacid) [address] capsule Take 1 capsule by mouth 2 times daily. 023 Active albuterol 108 (90 Base) MCG/ACT inhaler TAKE 2 PUFFS BY MOUTH EVERY 4 TO 6 HOURS NEEDED 022 Active Yuvafem 10 MCG tablet vaginal tablet INSERT 1 INSERT VAGINALLY 2 TIMES A WEEK USE 2 TIMES A WEEK AT BEDTIME, MON/THURS 023 Active valACYclovir (Valtrex) 1 g tablet TAKE 2 TABLETS BY MOUTH EVERY 12 HOURS FOR 1 DAY 024 Active gabapentin (Neurontin) 600 MG tablet Take 1 tablet (600 mg) by mouth 3 times daily. 90 tablet 3 024 Active fluticasone (Flonase) 50 MCG/ACT nasal sprayIndications: Seasonal allergic rhinitis, unspecified trigger SPRAY 2 SPRAYS INTO EACH NOSTRIL EVERY DAY 48 mL 1 024 Active Ketotifen Fumarate (Alaway) 0.035 % solution Administer 1 drop into affected eye(s) if needed in the morning and at bedtime (eye alleriges/itch ing). 10 mL 1 024 Active Diclofenac Sodium 1 % cream Apply [...] OR SPLIT. 50 tablet 1 025 Active hydroquinone 4 % creamIndications: Melasma APPLY TO THE AFFECTED AREA(S) TWICE DAILY IN THE MORNING AND AT BEDTIME 28.35 g 5 025 Active nitrofurantoin (Macrodantin) 50 MG capsule TAKE 1 CAPSULE ORALLY USE AFTER SEXUAL ACTIVITY MUST ADMINISTER WITH A MEAL/FOOD Active clonazePAM (KlonoPIN) 0.5 MG tablet Active escitalopram (Lexapro) 5 MG tablet TAKE 1 TABLET BY MOUTH ONCE A DAY TAKE WITH 10MG TAB FOR 15MG TOTAL DOSE Active butalbital-acetam inophen-caffeine 50-325-40 MG tabletIndications :Chronic nonintractable headache, unspecified headache type TAKE 1 TABLET BY MOUTH AT ONSET OF HEADACHE, MAY REPEAT AFTER 4 HOURS NEEDED, MAX 2 TABS PER DAY. 20 tablet 1 Active clonazePAM (KlonoPIN) 1 MG tablet take 1 tablet by oral route 2 times every day as needed for anxiety 2024 Discontinued(T herapy completed) escitalopram (Lexapro) 10 MG tablet Take 1 tablet by mouth 1 (one) time each day. 023 2024 Discontinued(T herapy completed) calcium carbonate (Tums) 500 MG chewable tablet Chew 2 tablets (1,000 mg) if needed in the morning, at noon, in the evening, and at bedtime for indigestion or heartburn. 60 tablet 2 024 2024 dicyclomine (Bentyl) 10 MG capsule Take 1 capsule (10 mg) by mouth if needed in the morning, at noon, and at bedtime (abd pain/cramping) . 60 capsule 1 024 2024 butalbital-acetam inophen-caffeine 50-325-40 MG tabletIndications :Chronic nonintractable headache, unspecified headache type TAKE 1 TABLET BY MOUTH AT ONSET OF HEADACHE, MAY REPEAT AFTER 4 HOURS NEEDED, MAX 2 TABS PER DAY. 20 tablet 1 025 2024 Discontinued(R eorder (will not trigger notification to Pharmacy)) oxyCODONE-acetami nophen (Percocet) 5-325 MG tabletIndications :Chronic bilateral low back pain with left-sided sciatica Take 1 tablet by mouth every 6 (six) hours if needed for severe pain for up to 28 days. 112 tablet 025 2024 Active Problems Problem Noted Date Diagnosed Date Chorioretinal scar of right eye 01/25/2025 Age-related nuclear cataract of left eye 025 Lattice degeneration of peripheral retina, left 01/25/2025 Blindness right eye category 4, normal vision le ft eye 01/25/2025 Chronic, continuous use of opioids 07/07/2024 Overview (07/07/2024): Dx: Rx: Last BALLOON DIPPER agreement: Tier II (visit every 3 months) [...] She request prescription to be send to [facility] pharmacy due to not being covered at [facility]. Generalized anxiety disorder 07/02/2023 Assessment [...] with radiculopathy 08/03/20 17 Overview (07/07/2024): Ms. 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 01/27/2023 Overweight (BMI 25.0-29.9) 11/21/2015 0 01/27/2023 Encounters Date Type Department Care Team Description 01/25/2025 10:30 AM EDT Office Visit [facility] OPTOMETRY [address] [place] [address] Fantasma, Cindy, OD Macular hemorrhage of right eye (Primary Dx); Hx of retinal detachment; Chorioretinal scar of right eye; Aphakia, right eye; Age-related nuclear cataract of left eye; Lattice degeneration of peripheral retina, left; Blindness right eye category 4, normal vision left eye; Presbyopia 01/25/2025 Telephone [facility] MEDICINE [address] [place] [address] Sarah Verduzco DO Med Refill 01/25/2025 Refill [facility] MEDICINE [address] [place] [address] Sarah Verduzco DO Chronic nonintractable headache, unspecified headache type 01/25/2025 Refill [facility] MEDICINE [address] [place] [address] Saarh Verduzco DO Chronic bilateral low back pain with left-sided sciatica 01/25/2025 Travel 01/03/2025 Orders Only GENERIC EXTERNAL DATA DEPARTMENT Provider, Generic External Data 12/29/2024 Orders Only [facility] External Provider, [facility] 12/29/2024 Refill [facility] MEDICINE [address] [place] [address] Sarah Verduzco DO 2024 Refill [facility] MEDICINE [address] [place] [address] Sarah Verduzco DO Chronic bilateral low back pain with left-sided sciatica 12/06/2024 Refill [facility] MEDICINE [address] [place] [address] Sarah Verduzco DO 11/28/2024 Refill [facility] MEDICINE [address] [place] [address] Sarah Verduzco DO Chronic nonintractable headache, unspecified headache type; Melasma 11/28/2024 Refill [facility] [place] [address] Sarah Verduzco DO Chronic bilateral low back pain with left-sided sciatica 11/22/2024 Refill [facility] [place] [address] Sarah Verduzco DO 11/14/2024 11:15 AM EST Office Visit [facility] [place] [address] Sarah Verduzco DO Major depression, recurrent, chronic [...] Travel 11/07/2024 1:30 PM EST Clinical Support [facility] [place] [address] Lauryn Cunningham [employer] team member neck pain (Primary Dx) 11/07/2024 Telephone [facility] [place] [address] Lauryn Cunningham, RN BALLOON D[employer] Renewal today 11/07/2024 Travel 11/07/2024 Telephone [facility] [place] [address] Lauryn Cunningham RN Recommend BALLOON DIPPER Tier 2 10/31/[address] [address] Sarah Verduzco DO Chronic nonintractable headache, unspecified headache type from Last 3 Months Immunizations Immunization Administration Dates Next Due Moderna Covid-19 Vaccine [...] 10:00 AM EDT Clinical Support [facility] MEDICINE [address] [place] [address] Lauryn Cunningham, RN 07/28/2025 11:00 AM EST Office Visit [facility] OPTOMETRY [address] [place] [address] Cindy Meek, OD [address] [place] [address] Health Maintenance Due Date Last Done Comments CT Colonography 1966 FIT DNA/Cologuard 1966 FIT 1966 FOBT 1966 Sigmoidoscopy 1966 Hepatitis B Vaccines (1 of 3 - 19+ 3-dose series) 1985 Pneumococcal Vaccine: 50+ Years (1 of 2 - PCV) 1985 Zoster Vaccines (1 of 2) 2016 Colonoscopy 03/24/2022 03/24/2017 Colorectal Cancer Screening 03/24/2022 COVID-19 Vaccine ( - 2023- season) 2024 02/01/2021, 01/04/2021 Influenza Vaccine (#1) 2024 SDOH Screening 07/22/2025 07/22/2024 Alcohol/Substance Use Screening 11/14/2025 11/14/2024 Depression Screening 11/14/2025 11/14/2024, 11/15/19 25 Tobacco Screening 01/25/2026 01/25/2025 Mammogram 06/22/2026 06/22/2024, 05/16, 06/10/2023, Additional history [...] PM EDT Macular hemorrhage of right eye CULTURE, URINE, ROUTINE Routine 01/03/2025 8:[address] PELVIS WO CONTRAST Routine 12/30/2024 8:24 AM EDT POCT NEREYDA-14 URINE DRUG SCREEN Routine 11/07/2024 2:06 PM EST Chronic neck pain BI MAMMOGRAM SCREENING TOMOSYNTHESIS BILATERAL Routine 06/22/2024 [...] Recently Relevant to Health Maintenance Results * Fundus Photos - OU - [...] Meek OD OPHTH PHOTOGRAPHY Final Resul t * Culture, Urine, Routine (01/03/2025 8:37 AM EDT) Urine Urine specimen obtained by clean catch procedure / Unknown 01/03/2025 8:37 AM EDT 01/03/2025 5:18 PM EDT Comment:[facility] Narrative [facility] - 01/05/2025 10:40 AM EDT Urine Culture Report Result Urine Culture < 10,000 cfu/ml Specimen Source: Urine clean catch us Generic External Data Provider LAB MICROBIOLOGY - GENERAL ORDERABLES Final Result [facility] [address] [place] [phone] * CT Pelvis w/o Contrast (12/30/2024 8:24 AM EDT) Anatomical Region Laterality Modality Body, Pelvis Computed Tomogra phy 12/30/2024 8:24 AM EDT Narrative 12/30/2024 8:25 AM EDT ? [facility] ?[address] ?[place] [address] ? CT Scan Report ? Signed ? Patient: Miryam Fan ?MR#: [id number] ?? 06 ? : 1965 ?Acct:[id number] ? Age/Sex: 59 / F ?ADM Date: 12/29/24 ? Loc: HO.CT ? Attending Dr: Hardik Jiang MD ? Ordering Physician: Hardik Jiang MD ?? Date of Service: 12/29/24 ?? Procedure(s): CT pelvis wo IV con ?? Accession Number(s): [id number] ? cc: Sarah Verduzco DO; Hardik Jiang MD ? Report Number: ?? [id number]: Total DLP = ??510.00 mGy-cm ? CLINICAL [...] signed by Ilir Trejo MD in OV> ?12/30/24 0825 ? DD/ 08 ? TD/TT: 12/30/24823 ? Photographer'S Model: ? Procedure Note Jamie, Image - 12/30/[address] [address] [address] Scan Report Signed Patient: Miryam FanMR#: [id number] 06 : 1965Acct:[id number] Age/Sex: 59 / FADM Date: 12/29/24 Loc: HO.CT Attending Dr: Hardik Jiang MD Ordering Physician: Hardik Jiang MD Date of Service: 12/29/24 Procedure(s): CT pelvis wo IV con Accession Number(s): [id number] cc: Sarah Verduzco DO; Hardik Jiang MD Report Number: [id number]: Total DLP = 510.00 mGy-cm CLINICAL HISTORY: [...] in OV> 12/30/24824 DD/ 3 TD/TT: 12/30/24823 Photographer'S Model: [facility] External Provider IMG CT PROCEDURES Edited Result - Final * POCT NEREYDA-14 Urine Drug Screen (11/07/2024 2:06 PM EST) Oxycodone Screen, Urine Positive Urine Urine specimen obtained by clean catch procedure / Unknown 11/07/2024 2:06 PM EST Lauryn Bonds RN - 11/07/2024 2:06 PM EST UTOX cup Lot#[id number] Exp. 05/03/26 Internal Pass Control Sarah Verduzco DO POINT OF CARE TEST ENTER/DAVID T ORDERABLES Final Result * BI Mammogram Screening Tomosynthesis Bilateral (06/22/2024 9:45 AM EDT) Anatomical Region Laterality Modality Breast Bilateral Mammography 06/22/2024 9:45 AM EDT Narrative 07/04/2024 6:01 PM EDT ? [facility] ? [address] ?[place] [address] ? Mammography Report ? Signed ? Patient: Meng,Miryam ?MR#: [id number] ?? 06 ? : 1965 ?Acct:[id number] ? Age/Sex: 58 / F ?ADM Date: 06/22/24 ? Loc: HO.MAMMO ? Attending Dr: Sarah Verduzco DO ? Ordering Physician: Sarah Verduzco DO ?Results: 1N ?? egative ? Date of Service: 06/22/24 ?Follow Up: 1 Year From Orig ?? inal Mammogram ? Procedure(s): MM tomosynthesis screening BI ?? Accession Number(s): [id number] ? cc: Sarah Verduzco DO ? EXAMINATION: [...] ? DD/ 0945 ? TD/TT: 06/22/2458 ? Photographer'S Model: ? Procedure Note Jamie, Image - 07/04/2024 [place] [facility] [address] [place], [place] [address] Mammography Report Signed Patient: Marco Fan#: [id number] 06 : 1965Acct:[id number] Age/Sex: 58 / FADM Date: 06/22/24 Loc: [facility] Attending Dr: Sarah Verduzco DO Ordering Physician: Sarah Verduzcoults: 1N egative Date of Service: 06/22/24Follow Up: 1 Year From Orig inal Mammogram Procedure(s): MM tomosynthesis screening BI Accession Number(s): [id number] cc: Sarah Verduzco DO EXAMINATION: MM SCREENING [...] in OV> 07/04/24 1757 DD/ TD/TT: 06/22/2458 Photographer'S Model: Sarah Verduzco DO IMG BI PROCEDURES Edited Res ult - Final * Hepatitis C Antibody with Reflex to HCV, RNA, Quantitative, Real-Time PCR (05/04/2024 12:27 PM EDT) Hepatitis C Antibody Nonreactive Nonreactive [facility] Comment:Antibodies to HCV no t detected; does not exclude early acuteHCV infection. Blood Venous blood specimen / Unknown 05/04/2024 12:27 PM EDT 05/04/2024 1:01 PM EDT Sarah Verduzco DO LAB BLOOD ORDERABLES Final R esult [facility] [address] [place] [phone] * HIV-1/2 Antigen and Antibodies, Fourth Generation, with Reflexes (05/04/2024 12:27 PM EDT) HIV AB/AG Nonreactive Nonreactive [facility] Comment:HIV-1 p24 Ag and/or HIV-1/HIV-2 Ab not detected.A test result that is nonreactive does not exclude thepossibility of exposure to or infection with HIV-1 and/orHIV-2. Nonreactive results in this assay for individualswith prior exposure to HIV-1 and/or HIV-2 may be due toantigen and antibody levels that are below the limit ofdetection of this assay.The [employer]unter[employer] HIV Ag/Ab Combo assay result andsupplemental assay results should be interpreted inconjunction with the patient's clinical presentation,history and other laboratory results. If the results areinconsistent with clinical evidence, additional testing issuggested to confirm the result. Blood Venous blood specimen / Unknown 05/04/2024 12:27 PM EDT 05/04/2024 1:01 PM EDT Sarah Verduzco DO LAB BLOOD ORDERABLES Final R esult [facility] [address] [place] [phone] * Hm Colonoscopy (03/24/2017 8:58 AM EDT) Historical Provider HEALTH MAINTENANCE Final Result from Last 3 Months or Most Recently Relevant to Health Maintenance Insurance [facility] ONE CARE < 65 [place] [id number] Care Teams Edge Stainer Relationship Specialty Start Date End Date Sarah Verduzco DO [address] [place] [address] PCP - General Family Medicine 11/21/15
--- OUTSIDE RECORDS SUMMARY | 2025-01-26 10:49 | XMS_ITS | Encounter Summary ---
Author Organization [employer] Address [address] [facility] [address] [facility] [address] [place] [address] Care Team Providers Care Director Integrated Name Role Phone Sarah Verduzco DO Primary Care Provider [phone] Reason for Visit * Reason Onset Date Comments Appointment Request 04/04/2024 Encounter Details Date Type Department Care Team ([facility] Contact Info) Description 04/04/2024 Telephone [facility] MEDICINE [address] [place], [place] [phone] Sarah Verduzco DO [address] [place], [place] [phone] Appointment Request Social History Tobacco Use Types [...] management appt 04/05. Please contact pt at [phone]. documented in this encounter Plan of Treatment Upcoming Encounters Date Type Department Care Team (Late st Contact Info) Description 02/08/2025 10:00 AM EDT Clinical Support [facility] MEDICINE [address] [place] [address] Lauryn Cunningham, RN 07/28/2025 11:00 AM EST Office Visit [facility] OPTOMETRY [address] [place] [address] Cindy Meek, OD [address] [place] [address] documented as of this encounter Visit Diagnoses Not on filedocumented in this encounter Additional Health Concerns Assessment Noted Time PHQ-9 Depression Total Score: 24 023 8:54 AM EDT documented as of this encounter Care Teams Director Integrated Relationship Specialty Start Date End Date Sarah Verduzco DO [address] [place] [address] PCP - General Family Medicine 11/21/15 documented as of this encounter
--- OUTSIDE RECORDS SUMMARY | 2025-01-26 10:49 | XMS_ITS | Encounter Summary ---
Author Organization [employer] Address [address] [place] [address] Care Team Providers Care Chief [employer]oir Engineering Name Role Phone Sarah Verduzco DO Primary Care Provider [phone] Reason for Visit * Reason Onset Date Comments Med Refill 01/25/2025 Encounter Details Date Type Department Care Team ([facility] st Contact Info) Description 01/25/2025 Refill [facility] MEDICINE [address] [place], [place] [phone] Sarah Verduzco DO [address] [place] [address] Chronic bilateral low back pain with left-sided [...] Telephone Encounter - Virginia Reed RN - 01/25/2025 4:29 PM EDT [facility] reviewed, pt. Last picked up 28 day supply 12/28/24, rx due today and pended * Telephone Encounter - Lynn Denton - 01/25/2025 12:12 PM EDT TC from pt requesting medication refill. Medications needing refill : Disp Refills Start End oxyCODONE-acetaminophen (Percocet) 5-325 MG tablet To be sent to: [facility]/pharmacy #[id number] [place], [place] - [facility] documented in this encounter Plan of Treatment Upcoming Encounters Date Type Department Care Team (Late st Contact Info) Description 02/08/2025 10:00 AM EDT Clinical Support [facility] MEDICINE [address] [place] [address] Lauryn Cunningham, RN 07/28/2025 11:00 AM EST Office Visit [facility] OPTOMETRY [address] [place] [address] Cindy Meek, OD [address] [place] [address] documented as of this encounter Visit Diagnoses Diagnosis Chronic bilateral low back pain with left-sided sciatica documented in this encounter Additional Health Concerns Assessment Noted Time PHQ-9 Depression Total Score: 20 025 11:28 AM EST documented as of this encounter Care Teams Chief [employer] Relationship Specialty Start Date End Date Sarah Verduzco DO [address] [place] [address] PCP - General Family Medicine 11/21/15 documented as of this encounter
--- OUTSIDE RECORDS SUMMARY | 2025-01-26 10:49 | XMS_ITS | Encounter Summary ---
Author Organization [employer] Address [address] [facility] [address] [place] [address] Care Team Providers Care Lead Massage Therapist Name Role Phone Sarah Verduzco DO Primary Care Provider + [phone] Reason for Visit * Reason Comments Med Refill Encounter Details Date Type Department Care Team ([facility] Contact Info) Description 03/31/2024 Refill [facility] MEDICINE [address] [place], [place] [phone] Sarah Verduzco DO [address] [place], [place] [phone] Social History Tobacco Use Types Packs/Day Years [...] Description 02/08/2025 10:00 AM EDT Clinical Support [facility] MEDICINE [address] [place] [address] Lauryn Cunningham RN 07/28/2025 11:00 AM EST Office Visit [facility] OPTOMETRY [address] [place] [address] Fantasma, Cindy, OD [address] [place] [address] documented as of this encounter Visit Diagnoses Not on filedocumented in this encounter Additional Health Concerns Assessment Noted Time PHQ-9 Depression Total Score: 24 023 8:54 AM EDT documented as of this encounter Care Teams Lead Massage Therapist Relationship Specialty Start Date End Date Sarah Verduzco DO [address] [place] [address] PCP - General Family Medicine 11/21/15 documented as of this encounter
--- OUTSIDE RECORDS SUMMARY | 2025-01-26 10:49 | XMS_ITS | Encounter Summary ---
Author Organization [employer] Address [address] [place] [address] Care Team Providers Care Sprinkling Truck Driver Name Role Phone Sarah Verduzco DO Primary Care Provider [phone] Reason for Visit * Reason Onset Date Comments Med Refill 01/25/2025 Encounter Details Date Type Department Care Team ([facility] st Contact Info) Description 01/25/2025 Refill [facility] MEDICINE [address] [place], [place] [phone] Sarah Verduzco DO 230 [place], [place] [phone] Chronic nonintractable headache, unspecified headache type Social [...] Dyson LPN - 01/25/2025 12:26 PM EDT Last seen 11/14/24. * Telephone Encounter - Lynn Denton - 01/25/2025 12:14 PM EDT TC from pt requesting medication refill. Medications needing refill : currnelonb-vksuvgwvcamkc-jjlowivz 50-325-40 MG tablet To be sent to: [facility] - [place], [place] - [address] [facility] documented in this encounter Plan of Treatment Upcoming Encounters Date Type Department Care Team (Late st Contact Info) Description 02/08/2025 10:00 AM EDT Clinical Support [facility] MEDICINE [address] [place] [address] Lauryn Cunningham RN 07/28/2025 11:00 AM EST Office Visit [facility] OPTOMETRY [address] [place] [address] Cindy Meek, ALBINA [address] [place] [address] documented as of this encounter Visit Diagnoses Diagnosis Chronic nonintractable headache, unspecified headache type documented in this encounter Additional Health Concerns Assessment Noted Time PHQ-9 Depression Total Score: 20 025 11:28 AM EST documented as of this encounter Care Teams Sprinkling Truck Driver Relationship Specialty Start Date End Date Sarah Verduzco DO 230 [place] [address] PCP - General Family Medicine 11/21/15 documented as of this encounter
--- OUTSIDE RECORDS SUMMARY | 2025-01-26 10:49 | XMS_ITS | Encounter Summary ---
Author Organization [employer] Address [address] [place] [address] Care Team Providers Care Hospital Coder Name Role Phone Sarah Verduzco DO Primary Care Provider [phone] Reason for Visit * Reason Onset Date Comments Nurse Triage 11/16/2023 Encounter Details Date Type Department Care Team ([facility] st Contact Info) Description 11/16/2023 Telephone [facility] [address] [place], [place] [phone] Sarah Verduzco DO [address] [place], [place] [phone] Nurse Triage Social History Tobacco Use Types [...] past 12 months, has t he electric, [employer], oil or water [employer] threatened to shut off services in your [...] this time. Pt [facility]'t [facility]to go to [facility] . Pt agrees with this [...] Description 02/08/2025 10:00 AM EDT Clinical Support [facility] [address] [place] [address] Lauryn Cunningham, LUISITO 07/28/2025 11:00 AM EST Office Visit [facility] OPTOMETRY [address] [place] [address] Cindy Meek, OD [address] [place] [address] documented as of this encounter Visit Diagnoses Not on filedocumented in this encounter Additional Health Concerns Assessment Noted Time PHQ-9 Depression Total Score: 24 023 8:54 AM EDT documented as of this encounter Care Teams Hospital Coder Relationship Specialty Start Date End Date Sarah Verduzco DO [address] [place] [address] PCP - General Family Medicine 11/21/15 documented as of this encounter
--- OUTSIDE RECORDS SUMMARY | 2025-01-26 10:49 | XMS_ITS | Encounter Summary ---
Author Organization [employer] Address [address] 7t [place] [address] Care Team Providers Care Inbound Call Center Agent Name Role Phone Sarah Verduzco DO Primary Care Provider [phone] Reason for Visit * Reason Onset Date Comments Nurse Triage 04/20/2023 Encounter Details Date Type Department Care Team ([facility] st Contact Info) Description 04/20/2023 Telephone [facility] MEDICINE [address] [place], [place] [phone] Sarah Verduzco DO 230 [place], [place] [phone] Nurse Triage Social History Tobacco Use Types [...] 10:00 AM EDT Clinical Support [facility] MEDICINE 230 [place] [address] Lauryn Cunningham, LUISITO 07/28/2025 11:00 AM EST Office Visit [facility] OPTOMETRY [address] [place], [place] [phone] Cindy Meek, OD 230 [place] [address] documented as of this encounter Visit Diagnoses Not on filedocumented in this encounter Additional Health Concerns Assessment Noted Time PHQ-9 Depression Total Score: 16 05/16/2 023 10:36 AM EDT documented as of this encounter Care Teams Inbound Call Center Agent Relationship Specialty Start Date End Date Sarah Verduzco DO 230 [place] [address] PCP - General Family Medicine 11/21/15 documented as of this encounter
--- OUTSIDE RECORDS SUMMARY | 2025-01-26 10:49 | XMS_ITS | Encounter Summary ---
Author Organization [employer] Address [address] [facility] 7t [place] [address] Care Team Providers Care Education Officer Name Role Phone Sarah Verduzco DO Primary Care Provider [phone] Reason for Visit * Reason Comments Med Refill Encounter Details Date Type Department Care Team (Late st Contact Info) Description 04/19/2023 Refill [facility] MEDICINE 230 [place], [place] [phone] Sarah Verduzco DO 230 [place] [address] Chronic GERD Social History Tobacco Use Types [...] Description 02/08/2025 10:00 AM EDT Clinical Support [facility] MEDICINE [address] [place] [address] Lauryn Cunningham RN 07/28/2025 11:00 AM EST Office Visit [facility] OPTOMETRY [address] [place] [address] Cindy Meek, OD 230 [place] [address] documented as of this encounter Visit Diagnoses Diagnosis Chronic GERD documented in this encounter Additional Health Concerns Assessment Noted Time PHQ-9 Depression Total Score: 16 023 10:36 AM EDT documented as of this encounter Care Teams Education Officer Relationship Specialty Start Date End Date Sarah Verduzco DO 230 [place] [address] PCP - General Family Medicine 11/21/15 documented as of this encounter
--- OUTSIDE RECORDS SUMMARY | 2025-01-26 10:50 | XMS_ITS | Encounter Summary ---
Author Organization [employer] Address [address] 7t [place] [address] Care Team Providers Care Gyroscope Technician Name Role Phone Sarah Verduzco DO Primary Care Provider [phone] Encounter Details Date Type Department Care Team (Latest Contact Info) Description 01/25/2025 Travel Social History Tobacco Use Types Packs/Day [...] Description 02/08/2025 10:00 AM EDT Clinical Support [facility] MEDICINE 230 [place] [address] Lauryn Cunningham RN 07/28/2025 11:00 AM EST Office Visit [facility] OPTOMETRY [address] [place] [address] Fantasma, Cindy, OD 230 [place] [address] documented as of this encounter Visit Diagnoses Not on filedocumented in this encounter Additional Health Concerns Assessment Noted Time PHQ-9 Depression Total Score: 20 025 11:28 AM EST documented as of this encounter Care Teams Gyroscope Technician Relationship Specialty Start Date End Date Saarh Verduzco DO 230 [place] [address] PCP - General Family Medicine 11/21/15 documented as of this encounter
== END 2025-01-26 10:24 | disposition home or self-care (01) ==
LOC: HO.HGS 09:54
PROVIDERS: PCP Family Medicine; Visit Provider Surgery
DX: M47.816 Spondylosis without myelopathy or radiculopathy, lumbar region (principal)
CPT/HCPCS: 99213

== ENCOUNTER → 2025-01-26 09:53 | Outpatient (BNVA) | payer OTHER, SELFPAY | PROVIDERS: PCP Family Medicine; Visit Provider Surgery | DX: M47.816 Spondylosis without myelopathy or radiculopathy, lumbar region (principal) | CPT/HCPCS: 99212 ==

== ENCOUNTER 2025-01-27 09:12 | Emergency (ER) | payer OTHER, SELFPAY ==
--- NOTE | ~2025-01-27 | CT_ITS ---
EXAMINATION: CT ABDOMEN AND PELVIS WITHOUT CONTRAST CLINICAL INFORMATION: Left Flank pain. COMPARISON: 01/18/2022. CT pelvis 12/29/2024. CT angiogram abdomen 07/26/2024. TECHNIQUE: Multidetector volumetric imaging was performed from the superior aspect of the liver through the pubic symphysis. Sagittal and coronal reformatted images were obtained on the technologist's workstation. This CT examination was performed using dose optimization techniques as appropriate, variously including the following: *Automated exposure control *Adjustment of mA and/or kV according to patient size (this includes techniques or standardized protocols for targeted exams where dose is matched to indication/reason for exam; i.e. extremities or head) *Use of iterative reconstruction technique FINDINGS: LUNG BASES: The visualized lung bases are unremarkable. LIVER, GALLBLADDER, AND BILIARY TREE: The liver is normal in size, shape, and attenuation. No suspicious focal hepatic lesion or biliary ductal dilatation is present. Subcentimeter cysts in segments 2, 3, and 4a. The gallbladder is surgically absent. PANCREAS: Unremarkable. SPLEEN: Unremarkable. ADRENAL GLANDS: Unremarkable. KIDNEYS AND URETERS: The kidneys are normal in size, shape, and attenuation. No hydronephrosis, hydroureter, or calculi seen. No perinephric stranding. BLADDER: Unremarkable. GASTROINTESTINAL TRACT: There is wall thickening and inflammation of the transverse, descending, and sigmoid colon, consistent with infectious or inflammatory colitis. Equivocal rectal involvement. Small bowel appears normal. The stomach is decompressed. There is a small third segment duodenal diverticulum. Normal appendix. ABDOMINAL WALL: No significant hernia is appreciated. LYMPH NODES: Normal. VASCULAR: Mild atheromatous calcification of the aorta and iliac arteries. No aneurysm PELVIC VISCERA: The uterus is not well seen and may be surgically absent. No adnexal masses.. OSSEOUS STRUCTURES: No suspicious lytic or blastic bone lesion. CT/CT abdomen pelvis wo IV con IMPRESSION: 1. Segmental colitis of the transverse, descending, and sigmoid colon. This could be infectious or inflammatory. Equivocal rectal involvement. 2. No urological calculus or obstructive uropathy. 3. Additional ancillary findings as discussed in the body of the report. Electronically signed by: Viet Mejía MD 01/27/2025 11:06 AM EDT
[2025-01-27 09:14] VITALS: BP 122/76; PULSE 99; RESP 18; TEMP 37.1; O2SAT 98; BMI 26.3
[2025-01-27 09:28] LABS: MANUAL DIFF FLAG NO
[2025-01-27 09:30] LABS: Appearance Urine Clear; Color Urine Yellow; Glucose Urine UA Negative (Negative); Leukocyte Esterase Urine Small (1+) (Negative); Nitrite Urine Negative (Negative); PH 7.5 (5.0-9.0); Specific Gravity - Urine 1.025 (1.005-1.025); UMIC TRIGGER UACC YES; Urine Blood Small (1+) (Negative); Urine Ketones Trace mg/dL (Negative); Urine Protein Trace mg/dL (Neg-Trace)
[2025-01-27 09:31] LABS: Basophils Percent Auto 0.4 % (0-2); Eosinophils Absolute Auto 0.1 X10*3/uL (0.0-0.4); Eosinophils Percent Auto 0.8 % (0-4); Hematocrit 35.2 % (37.0-47.0); Hemoglobin 11.6 g/dl (12.0-16.0); Imm Gran Abs Auto 0.02 X10*3/uL (0.00-0.03); Imm Gran Pct Auto 0.3 % (0.0-0.4); Lymphocytes Absolute Auto 2.6 X10*3/uL (1.2-4.9); Lymphocytes Percent Auto 34.1 % (20-40); Mean Corpuscular Hemoglobin 30.1 pg (27.0-33.0); Mean Corpuscular Volume 91.2 fL (80.0-98.0); Mean Platelet Volume 8.7 fL (9.4-12.3); Monocytes Absolute Auto 0.7 X10*3/uL (0.1-1.2); Monocytes Percent Auto 9.6 % (2-11); Neutrophils Absolute Auto 4.2 x10*3/uL (2.0-8.3); Neutrophils Percent Auto 54.8 % (45-73); Platelet Count 280 X10*3/uL (160-400); Red Blood Count 3.86 X10*6/uL (4.20-5.50); Red Cell Distribution Width 13.1 % (11.0-16.0); White Blood Count 7.7 X10*3/uL (4.8-10.8)
[2025-01-27 09:32] LABS: Bacteria Urine Trace (None Seen); Hyaline Casts Urine 0-2 /LPF (0-2); UACC Culture Trigger YES
--- OUTSIDE RECORDS SUMMARY | 2025-01-27 09:41 | XMS_ITS | Encounter Summary ---
Author Organization [employer] Address [address] [facility] [address] 7t [place] [address] Care Team Providers Care It Specialist Name Role Phone Sarah Verduzco DO Primary Care Provider [phone] Reason for Visit * Reason Onset Date Comments Nurse Triage 07/20/2023 Encounter Details Date Type Department Care Team ([facility] st Contact Info) Description 07/20/[address] [facility] MEDICINE 230 [place], [place] [phone] Sarah Verduzco DO 230 [place], [place] [phone] Nurse Triage Social History Tobacco Use Types [...] t he electric, gas, oil or water [employer] threatened to shut off services in your [...] juice Pt agrees. Advised to come to [facility] today to be seen by provider [...] accepted this outcome Please contact pt at [phone] documented in this encounter Plan of Treatment Upcoming Encounters Date Type Department Care Team (Late st Contact Info) Description 02/08/2025 10:00 AM EDT Clinical Support [facility] MEDICINE 230 [place] [address] Lauryn Cunningham, RN 07/28/2025 11:00 AM EST Office Visit [facility] OPTOMETRY [address] [place] [address] Cindy Meek, ALBINA 230 [place] [address] documented as of this encounter Visit Diagnoses Not on filedocumented in this encounter Additional Health Concerns Assessment Noted Time PHQ-9 Depression Total Score: 24 023 8:54 AM EDT documented as of this encounter Care Teams It Specialist Relationship Specialty Start Date End Date Sarah Verduzco DO 230 [place] [address] PCP - General Family Medicine 11/21/15 documented as of this encounter
--- OUTSIDE RECORDS SUMMARY | 2025-01-27 09:41 | XMS_ITS | Encounter Summary ---
Author Organization [employer] Address [address] [facility] 7t [place] [address] Care Team Providers Care Websphere Administrator Name Role Phone Sarah Verduzco DO Primary Care Provider [phone] Reason for Visit * Reason Comments Med Refill Encounter Details Date Type Department Care Team ([facility] Contact Info) Description 02/06/2023 Refill [facility] MEDICINE [address] [place] [address] [phone] Sarah Verduzco DO 230 [place], [place] [phone] Chronic GERD Social History Tobacco Use Types [...] Upcoming Encounters Date Type Department Care Team ([facility] Contact Info) Description 02/08/2025 10:00 AM EDT Clinical Support [facility] MEDICINE [address] [place] [address] Lauryn Cunningham, RN 07/28/2025 11:00 AM EST Office Visit [facility] OPTOMETRY [address] [place], [place] [phone] Cindy Meek, ALBINA 230 [place] [address] documented as of this encounter Visit Diagnoses Diagnosis Chronic GERD documented in this encounter Additional Health Concerns Assessment Noted Time PHQ-9 Depression Total Score: 16 023 10:36 AM EDT documented as of this encounter Care Teams Websphere Administrator Relationship Specialty Start Date End Date Sarah Verduzco DO 230 [place] [address] PCP - General Family Medicine 11/21/15 documented as of this encounter
--- OUTSIDE RECORDS SUMMARY | 2025-01-27 09:41 | XMS_ITS | Encounter Summary ---
Author Organization [facility] Address [address] [place] [address] Care Team Providers Care Gore Cutter Name Role Phone Sarah Verduzco DO Primary Care Provider Aura Kramer MD Unavailable [phone] Mimi Newsome PA-C Unavailable [phone] Kaleb Tripathi PA-C Unavailable [phone] Encounter Details Date Type Department Care Team Description 09/08/2018 Refill [facility] - [place] [address] [facility], [address] [place] [address] Sheila Eubanks MD Social History Tobacco Use [...] on filedocumented in this encounter Care Teams Gore Cutter Relationship Specialty Start Date End Date Sarah Verduzco DO PCP - General Internal Medicine 02/09/18 Aura Pollock MD 175 [facility] [address] [place] [address] [phone] Surgeon Neurosurgery 12/09/21 Mimi Newsome PA-C [address] [phone] Specialist Neurosurgery 12/09/21 Kaleb Tripathi PA-C 175 [facility] [address] [place] [address] [phone] Specialist Neurosurgery 12/09/21 documented as of this encounter
--- OUTSIDE RECORDS SUMMARY | 2025-01-27 09:41 | XMS_ITS | Encounter Summary ---
Author Organization [employer] Address [address] 7t [place] [address] Care Team Providers Care Commercial Service Technician Name Role Phone Sarah Verduzco DO Primary Care Provider [phone] Reason for Visit * Reason Comments Med Refill Encounter Details Date Type Department Care Team ([facility] Contact Info) Description 12/29/2024 Refill [facility] MEDICINE 230 [place], [place] [phone] Sarah Verduzco DO 230 [place], [place] [phone] Social History Tobacco Use Types Packs/Day Years [...] 02/08/2025 10:00 AM EDT Clinical Support [facility] MEDICINE 230 [place] [address] Lauryn Cunningham RN 07/28/2025 11:00 AM EST Office Visit [facility] OPTOMETRY [address] [place] [address] Fantasma, Cindy, OD 230 [place] [address] documented as of this encounter Visit Diagnoses Not on filedocumented in this encounter Additional Health Concerns Assessment Noted Time PHQ-9 Depression Total Score: 20 025 11:28 AM EST documented as of this encounter Care Teams Commercial Service Technician Relationship Specialty Start Date End Date Sarah Verduzco DO 230 [place] [address] PCP - General Family Medicine 11/21/15 documented as of this encounter
--- OUTSIDE RECORDS SUMMARY | 2025-01-27 09:41 | XMS_ITS | Encounter Summary ---
Author Organization [employer] Address [address] 7t [place] [address] Care Team Providers Care Television Installer Helper Name Role Phone Sarah Verduzco DO Primary Care Provider [phone] Reason for Visit * Reason Comments Med Refill Encounter Details Date Type Department Care Team ([facility] Contact Info) Description 09/08/2023 Refill [facility] MEDICINE 230 [place], [place] [phone] Sarah Verduzco DO 230 [place], [place] [phone] Social History Tobacco Use Types Packs/Day Years [...] Description 02/08/2025 10:00 AM EDT Clinical Support [facility] MEDICINE 230 [place] [address] Lauryn Cunningham RN 07/28/2025 11:00 AM EST Office Visit [facility] OPTOMETRY [address] [place] [address] Fantasma, Cindy, OD 230 [place] [address] documented as of this encounter Visit Diagnoses Not on filedocumented in this encounter Additional Health Concerns Assessment Noted Time PHQ-9 Depression Total Score: 24 023 8:54 AM EDT documented as of this encounter Care Teams Television Installer Helper Relationship Specialty Start Date End Date Sarah Verduzco DO 230 [place] [address] PCP - General Family Medicine 11/21/15 documented as of this encounter
--- OUTSIDE RECORDS SUMMARY | 2025-01-27 09:41 | XMS_ITS | Encounter Summary ---
Author Organization [employer] Address [address] [facility] 7t [place] [address] Care Team Providers Care Manager Primary Name Role Phone Sarah Verduzco DO Primary Care Provider [phone] Reason for Visit * Reason Onset Date Comments Med Refill 10/20/2022 Encounter Details Date Type Department Care Team (Late Contact Info) Description 10/20/2022 Telephone [facility] MEDICINE 230 [place], [place] [phone] Sarah Verduzco DO 230 [place], [place] [phone] Med Refill Social History Tobacco Use Types [...] Description 02/08/2025 10:00 AM EDT Clinical Support [facility] MEDICINE 230 [place] [address] Lauryn Cunningham, RN 07/28/2025 11:00 AM EST Office Visit [facility] OPTOMETRY [address] [place] [address] Cindy Meek, OD 230 [place] [address] documented as of this encounter Visit Diagnoses Not on filedocumented in this encounter Care Teams Manager Primary Relationship Specialty Start Date End Date Sarah Verduzco DO 230 [place] [address] PCP - General Family Medicine 11/21/15 documented as of this encounter
--- OUTSIDE RECORDS SUMMARY | 2025-01-27 09:41 | XMS_ITS | Encounter Summary ---
Author Organization [employer] Address [address] [facility] 7t [place] [address] Care Team Providers Care Screen Printing Equipment Setter Name Role Phone Sarah Verduzco DO Primary Care Provider [phone] Encounter Details Date Type Department Care Team (Late st Contact Info) Description 12/24/2022 Orders Only [facility] MEDICINE [address] [place] [address] Sarah Verduzco DO 230 [place] [address] Social History Tobacco Use Types Packs/Day Years [...] Description 02/08/2025 10:00 AM EDT Clinical Support [facility] MEDICINE 230 [place] [address] Lauryn Cunningham RN 07/28/2025 11:00 AM EST Office Visit [facility] OPTOMETRY [address] [place] [address] Cindy Meek, OD 230 [place] [address] documented as of this encounter Visit Diagnoses Not on filedocumented in this encounter Care Teams Screen Printing Equipment Setter Relationship Specialty Start Date End Date Sarah Verduzco DO 230 [place] [address] PCP - General Family Medicine 11/21/15 documented as of this encounter
--- OUTSIDE RECORDS SUMMARY | 2025-01-27 09:41 | XMS_ITS | Encounter Summary ---
Author Organization [employer] Address [address] [facility] 7t [place] [address] Care Team Providers Care Medication Aide Name Role Phone Sarah Verduzco DO Primary Care Provider [phone] Reason for Visit * Reason Comments Med Refill Encounter Details Date Type Department Care Team (Late Contact Info) Description 12/04/2022 Refill [facility] MEDICINE 230 [place] [address] Sarah Verduzco DO 230 [place] [address] Social History Tobacco Use Types Packs/Day Years [...] Description 02/08/2025 10:00 AM EDT Clinical Support [facility] MEDICINE 230 [place] [address] Lauryn Cunningham, LUISITO 07/28/2025 11:00 AM EST Office Visit [facility] OPTOMETRY [address] [place] [address] Cindy Meek, OD 230 [place] [address] documented as of this encounter Visit Diagnoses Not on filedocumented in this encounter Care Teams Medication Aide Relationship Specialty Start Date End Date Sarah Verduzco DO [address] [place] [address] PCP - General Family Medicine 11/21/15 documented as of this encounter
--- OUTSIDE RECORDS SUMMARY | 2025-01-27 09:41 | XMS_ITS | Encounter Summary ---
Author Organization [employer] Address [address] [facility] [address] [facility] [address] 7t [place] [address] Care Team Providers Care Sole Scraper Name Role Phone Sarah Verduzco DO Primary Care Provider [phone] Encounter Details Date Type Department Care Team ([facility] st Contact Info) Description 07/27/2023 Telephone [facility] MEDICINE 230 [place], [place] [phone] Sarah Verduzco DO 230 [place], [place] [phone] Social History Tobacco Use Types Packs/Day Years [...] Description 02/08/2025 10:00 AM EDT Clinical Support [facility] MEDICINE 230 [place] [address] Lauryn Cunningham, RN 07/28/2025 11:00 AM EST Office Visit [facility] OPTOMETRY [address] [place] [address] Fantasma, Cindy, OD 230 [place], [place] [phone] documented as of this encounter Visit Diagnoses Not on filedocumented in this encounter Additional Health Concerns Assessment Noted Time PHQ-9 Depression Total Score: 24 023 8:54 AM EDT documented as of this encounter Care Teams Sole Scraper Relationship Specialty Start Date End Date Sarah Verduzco DO 230 [place] [address] PCP - General Family Medicine 11/21/15 documented as of this encounter
--- OUTSIDE RECORDS SUMMARY | 2025-01-27 09:41 | XMS_ITS | Encounter Summary ---
Author Organization [facility] Address [address] [facility] [place] [address] Care Team Providers Care Hospital Fellow Name Role Phone Sraah Verduzco DO Primary Care Provider Aura Kramer MD Unavailable [phone] Mimi Newsome PA-C Unavailable [phone] Kaleb Tirpathi PA-C Unavailable [phone] Encounter Details Date Type Department Care Team Description 12/20/2021 Release of Information Medical Records [address] [place] [address] Abstract, Provider Social History Tobacco Use Types [...] on filedocumented in this encounter Care Teams Hospital Fellow Relationship Specialty Start Date End Date Sarah Verduzco DO PCP - General Internal Medicine 02/09/18 Aura Pollock MD 175 [facility] [address] [place] [address] Surgeon Neurosurgery 12/09/21 Mimi Newsome PA-C [address] [address] Specialist Neurosurgery 12/09/21 Kaleb Tripathi PA-C 175 [facility] [address] [place] [address] Specialist Neurosurgery 12/09/21 documented as of this encounter
--- OUTSIDE RECORDS SUMMARY | 2025-01-27 09:41 | XMS_ITS | Encounter Summary ---
Author Organization [facility] Address [address] [facility] [place] [address] Care Team Providers Care Photography Professor Name Role Phone Sarah Verduzco DO Primary Care Provider Aura Kramer MD Unavailable [phone] Mimi Newsome PA-C Unavailable [phone] Kaleb Tripathi PA-C Unavailable Encounter Details Date Type Department Care Team Description 08/13/2018 Refill [facility] [place] [address] [phone] Donita Lorenzo DScPAS Social History Tobacco Use Types Packs/Day Years Used Date Smoking Tobacco: Former Smokeless Tobacco: Never Sex Assigned at Date Recorded Not on file documented as of this encounter Plan of Treatment Not on file documented as of this encounter Visit Diagnoses Not on filedocumented in this encounter Care Teams Photography Professor Relationship Specialty Start Date End Date Sarah Verduzco DO PCP - General Internal Medicine 02/09/18 Aura Pollock MD [address] [address] Surgeon Neurosurgery 12/09/21 Mimi Newsome PA-C [address] [address] Specialist Neurosurgery 12/09/21 Kaleb Tripathi PA-C [address] [address] Specialist Neurosurgery 12/09/21 documented as of this encounter
--- OUTSIDE RECORDS SUMMARY | 2025-01-27 09:41 | XMS_ITS | Encounter Summary ---
Author Organization [employer] Address [address] [address] [facility] [address] 7t [place] [address] Care Team Providers Care Brand Activation Manager Name Role Phone Sarah Verduzco DO Primary Care Provider [phone] Reason for Visit * Reason Comments Med Refill Encounter Details Date Type Department Care Team ([facility] Contact Info) Description 08/21/2024 Refill [facility] MEDICINE 230 [place], [place] [phone] Sarah Verduzco DO 230 [place], [place] [phone] Social History Tobacco Use Types Packs/Day Years [...] Description 02/08/2025 10:00 AM EDT Clinical Support [facility] MEDICINE 230 [place] [address] Lauryn Cunningham RN 07/28/2025 11:00 AM EST Office Visit [facility] OPTOMETRY [address] [place] [address] Fantasma, Cindy, OD 230 [place] [address] documented as of this encounter Visit Diagnoses Not on filedocumented in this encounter Additional Health Concerns Assessment Noted Time PHQ-9 Depression Total Score: 11 024 10:42 AM EDT documented as of this encounter Care Teams Brand Activation Manager Relationship Specialty Start Date End Date Sarah Verduzco DO 230 [place] [address] PCP - General Family Medicine 11/21/15 documented as of this encounter
--- OUTSIDE RECORDS SUMMARY | 2025-01-27 09:41 | XMS_ITS | Encounter Summary ---
Author Organization [employer] Address [address] [facility] [address] 7t [place] [address] Care Team Providers Care Stadium Attendant Name Role Phone Sarah Verduzco DO Primary Care Provider [phone] Reason for Visit * Reason Onset Date Comments Appointment Request 08/22/2024 Encounter Details Date Type Department Care Team ([facility] Contact Info) Description 08/22/2024 Telephone [facility] MEDICINE 230 [place], [place] [phone] Sarah Verduzco DO [address] [place], [place] [phone] Appointment Request Social History Tobacco Use Types [...] DME RX Contact: Jerry, On behalf of [facility]'s Care Management staff [facility], we are requesting Durable Medical Equipment (DME) for the pt .I can facilitate the ordering process through our approved vendor (such as [employer], [employer], etc.), but a prescription for the DME item(s) is needed. The DME item(s)requested are - Shower chair - Cane Kindly send the prescriptions to ([email or web address]) for processing the DME referral on behalf of the patient. Please also provide the patient's current Height and Weight. Should you have any inquiries regarding this request, feel free to contact me [phone]. Thank you for your assistance in this matter. * Telephone Encounter - Priya Fritz RN - 09/01/2024 10:02 AM EST ----- Message from Lisa Kenny sent at 08/31/2024 3:20 PM EST ----- Regarding: DME RX Contact: Jerry, On behalf of [facility]'s Care Management staff [facility] Care, we are requesting Durable Medical Equipment (DME) for the pt .I can facilitate the ordering process through our approved vendor (such as [employer], [employer], etc.), but a prescription for the DME item(s) is needed. The DME item(s)requested are - Shower chair - Cane Kindly send the prescriptions to ([email or web address]) for processing the DME referral on behalf of the patient. Please also provide the patient's current Height and Weight. Should you have any inquiries regarding this request, feel free to contact me [phone]. Thank you for your assistance in this matter. * Telephone Encounter - Thuy Nails - 08/22/2024 11:20 AM EST Tc from pt requesting to r/s pain management appointment from 08/23. Contact pt at [phone] documented in this encounter Plan of Treatment Upcoming Encounters Date Type Department Care Team (Late st Contact Info) Description 02/08/2025 10:00 AM EDT Clinical Support [facility] MEDICINE [address] [place], [place] [phone] Lauryn Cunningham, LUISITO 07/28/2025 11:00 AM EST Office Visit [facility] OPTOMETRY [address] [place] [address] Cindy Meek, OD 230 [place] [address] documented as of this encounter Visit Diagnoses Not on filedocumented in this encounter Additional Health Concerns Assessment Noted Time PHQ-9 Depression Total Score: 11 024 10:42 AM EDT documented as of this encounter Care Teams Stadium Attendant Relationship Specialty Start Date End Date Sarah Verduzco DO 230 [place] [address] PCP - General Family Medicine 11/21/15 documented as of this encounter
--- OUTSIDE RECORDS SUMMARY | 2025-01-27 09:41 | XMS_ITS | Encounter Summary ---
Author Organization [employer] Address [address] [facility] 7t [place] [address] Care Team Providers Care Teletypesetter Name Role Phone Sarah Verduzco DO Primary Care Provider [phone] Reason for Visit * Reason Comments Med Refill Encounter Details Date Type Department Care Team ([facility] Contact Info) Description 10/21/2022 Refill [facility] MED[facility]INE [address] [place], [place] [phone] Елена Olson MD 230 [place], [place] [phone] Sinusitis, unspecified chronicity, unspecified location Social History [...] 02/08/2025 10:00 AM EDT Clinical Support [facility] [address] [place] [address] Lauryn Cunningham RN 07/28/2025 11:00 AM EST Office Visit [facility] OPTOMETRY [address] [place] [address] [phone] Cindy Meek, ALBINA 230 [place] [address] documented as of this encounter Visit Diagnoses Diagnosis Sinusitis, unspecified chronicity, unspecified location documented in this encounter Care Teams Teletypesetter Relationship Specialty Start Date End Date Sarah Verduzco DO 230 [place] [address] PCP - General Family Medicine 11/21/15 documented as of this encounter
--- OUTSIDE RECORDS SUMMARY | 2025-01-27 09:41 | XMS_ITS | Encounter Summary ---
Author Organization [employer] Address [address] [facility] [address] 7t [place] [address] Care Team Providers Care Javascript Front End Developer Name Role Phone Sarah Verduzco DO Primary Care Provider [phone] Reason for Visit * Reason Comments Med Refill Encounter Details Date Type Department Care Team ([facility] st Contact Info) Description 08/20/2023 Refill [facility] MEDICINE [address] [place], [place] [phone] Sarah Verduzco DO 230 [place], [place] [phone] Chronic neck pain Social History Tobacco Use [...] 08/31/2023 11:48 AM EST Referral faxed for DIAGNOSTIC MEDICAL SONOGRAPHER services to , per provider request. documented in this encounter Plan of Treatment Upcoming Encounters Date Type Department Care Team (Late st Contact Info) Description 02/08/2025 10:00 AM EDT Clinical Support [facility] MEDICINE [address] [place] [address] Lauryn Cunningham RN 07/28/2025 11:00 AM EST Office Visit [facility] OPTOMETRY [address] [place], [place] [phone] Cindy Meek, OD 230 [place] [address] documented as of this encounter Visit Diagnoses Diagnosis Chronic neck pain Cervicalgia documented in this encounter Additional Health Concerns Assessment Noted Time PHQ-9 Depression Total Score: 24 023 8:54 AM EDT documented as of this encounter Care Teams Javascript Front End Developer Relationship Specialty Start Date End Date Sarah Verduzco DO 230 [place] [address] PCP - General Family Medicine 11/21/15 documented as of this encounter
--- OUTSIDE RECORDS SUMMARY | 2025-01-27 09:41 | XMS_ITS | Clinical Summary ---
Author Organization [employer] Address 75 [facility] 7t [place] [address] Care Team Providers Care Ob Nurse Name Role Phone Sarah Verduzco DO Primary Care Provider [phone] Allergies Active Allergy Reactions Criticality Noted Date [...] TABS PER DAY. 20 tablet 1 Active oxyCODONE-acetami nophen (Percocet) 5-325 MG tabletIndications :Chronic bilateral low back pain with left-sided sciatica Take 1 tablet by mouth every 6 (six) hours if needed for severe pain for up to 28 days. 112 tablet 025 2024 Active clonazePAM (KlonoPIN) 1 MG tablet take [...] to 28 days. 112 tablet 025 2024 Discontinued(R eorder (will not trigger notification to Pharmacy)) Active Problems Problem Noted Date Diagnosed Date Chorioretinal scar of right eye 01/25/2025 Age-related nuclear cataract of left eye 025 Lattice degeneration of peripheral retina, left 01/25/2025 Blindness right eye category 4, normal vision le ft eye 01/25/2025 Chronic, continuous use of opioids 07/07/2024 Overview (07/07/2024): Dx: Rx: Last [employer] agreement: Tier II (visit every 3 months) [...] She request prescription to be send to [facility] pharmacy due to not being covered at [facility]. Generalized anxiety disorder 07/02/2023 Assessment & [...] Review of the cervical spine MRI at [place] dated 02/26/2024 shows a solid arthrodesis at [...] to NS for f/u eval -advised contact [facility] if sx worsen Resolved Problems Problem [...] She requests prescriptions to be sent to [facility] pharmacy due to not being covered at 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 01/27/2023 Overweight (BMI 25.0-29.9) 11/21/2015 0 01/27/2023 Encounters Date Type Department Care Team Description 01/27/2025 Orders Only GENERIC EXTERNAL DATA DEPARTMENT Provider, Generic External Data 01/27/2025 Telephone [facility] MEDICINE [address] [place] [address] Sarah Verduzco DO Nurse Triage 01/25/2025 10:30 AM EDT Office Visit [facility] OPTOMETRY [address] [place] [address] Fantasma, Cindy, OD Macular hemorrhage of right eye (Primary Dx); Hx of retinal detachment; Chorioretinal scar of right eye; Aphakia, right eye; Age-related nuclear cataract of left eye; Lattice degeneration of peripheral retina, left; Blindness right eye category 4, normal vision left eye; Presbyopia 01/25/2025 Telephone [facility] [address] [place] [address] Sarah Verduzco DO Med Refill 01/25/2025 Refill [facility] [address] [place] [address] Sarah Verduzco DO Chronic nonintractable headache, unspecified headache type 01/25/2025 Refill [facility] [address] [place] [address] Sarah Verduzco DO Chronic bilateral low back pain with left-sided sciatica 01/25/2025 Travel 01/03/2025 Orders Only GENERIC EXTERNAL DATA DEPARTMENT Provider, Generic External Data 12/29/2024 Orders Only [facility] External Provider, [facility] 12/29/2024 Refill [facility] [address] [place] [address] Sarah Verduzco DO 2024 Refill [facility] [place] [address] Sarah Verduzco DO Chronic bilateral low back pain with left-sided sciatica 12/06/2024 Refill [facility] [place] [address] Sarah Verduzco DO 11/28/2024 Refill [facility] 230 [facility] [address] Sarah Verduzco DO Chronic nonintractable headache, unspecified headache type; Melasma 11/28/2024 Refill [facility] [address] [place] [address] Sarah Verduzco DO Chronic bilateral low back pain with left-sided sciatica 11/22/2024 Refill [facility] [address] [place] [address] Sarah Verduzco DO 11/14/2024 11:15 AM EST Office Visit [facility] [place] [address] Sarah Verduzco DO Major depression, recurrent, chronic [...] Travel 11/07/2024 1:30 PM EST Clinical Support [facility] [place] [address] Lauryn Cunningham, insole tacker neck pain (Primary Dx) 11/07/[address] [address] Lauryn Cunningham, RN [employer] Renewal today 11/07/2024 Travel 11/07/[address] [address] Lauryn Cunningham RN Recommend [employer] Tier 2 10/31/2024 Refill [facility] [address] [place] [address] Sarah Verduzco DO Chronic nonintractable headache, unspecified [...] Description 02/08/2025 10:00 AM EDT Clinical Support [facility] MEDICINE [address] [place] [address] Lauryn Cunningham, LUISITO 07/28/2025 11:00 AM EST Office Visit [facility] OPTOMETRY [address] [place] [address] Fantasma, Cindy, OD 230 [place] [address] Health Maintenance Due Date Last Done Comments CT Colonography 1966 FIT DNA/Cologuard 1966 FIT 1965 FOBT 1965 Sigmoidoscopy 1966 Hepatitis B Vaccines (1 of 3 - 19+ 3-dose series) 1985 Pneumococcal Vaccine: 50+ Years (1 of 2 - PCV) 1985 Zoster Vaccines (1 of 2) 2016 Colonoscopy 03/24/2022 03/24/2017 Colorectal Cancer Screening 03/24/2022 COVID-19 Vaccine ( season) 2024 02/01/2021, 01/04/2021 Influenza Vaccine (#1) 2024 SDOH Screening 07/22/2025 07/22/2024 Alcohol/Substance Use Screening 11/14/2025 11/14/2024 Depression Screening 11/14/2025 11/14/2024, 11/15/19 Tobacco Screening 01/25/2026 01/25/2025 Mammogram 06/22/2026 06/22/2024, [...] Procedure Name Priority Date/Time Associated Diagnosis Comments CBC WITH AUTO DIFFERENTIAL Routine 01/27/2025 9:24 AM EDT URINALYSIS, COMPLETE, WITH REFLEX TO CULTURE Routine 01/27/2025 9:24 AM EDT FUNDUS PHOTOS - OU - BOTH EYES [...] Recently Relevant to Health Maintenance Results * (ABNORMAL) Urinalysis, Complete, with Reflex to Culture (01/27/2025 9:24 AM EDT) Color Urine Yellow [facility] Appearance Urine Clear [facility] PH 7.5 5.0 - 9.0 [facility] Glucose Urine UA Negative Negative mg/dL [facility] Urine Blood Small (1+)(A) Negative [facility] Specific Staley - Urine 1.025 1.005 - 1.025 [facility] Urine Protein Trace Neg-Trace mg/dL [facility] Urine Ketones Trace Negative mg/dL [facility] Nitrite Urine Negative Negative [facility] Leukocyte Esterase Urine Small (1+)(A) Negative [facility] RBC Urine 11-20(A) 0 - 2 /HPF [facility] Urine WBC 6-10(A) 0 - 5 /HPF [facility] Urine Squamous Epithelial Cell 11-20 0 - 2 /HPF [facility] Urine Bacteria Trace None Seen [facility] Hyaline Casts, Urine 0-2 0 - 2 /LPF [facility] 01/27/2025 9:24 AM EDT 01/27/2025 9:26 AM EDT Narrative [facility] - 01/27/2025 9:35 AM EDT [id number], Clean Catch us Generic External Data Provider LAB URINE ORDERAB LES Final Result [facility] [address] [place] [address] [phone] * (ABNORMAL) CBC auto differential (01/27/2025 9:24 AM EDT) White Blood Count 7.7 4.8 - 10.8 X10*3/uL [facility] Red Blood Count 3.86(L) 4.20 - 5.50 X10*6/uL [facility] Hemoglobin 11.6(L) 12.0 - 16.0 g/dl [facility] Hematocrit 35.2(L) 37.0 - 47.0 % [facility] Mean Corpuscular Volume 91.2 80.0 - 98.0 fL [facility] Mean Corpuscular Hemoglobin 30.1 27.0 - 33.0 pg [facility] Mean Corpuscular HGB Conc 33.0 31.0 - 35.0 g/dl [facility] Red Cell Distribution Width 13.1 11.0 - 16.0 % [facility] Platelet Count 280 160 - 400 X10*3/uL [facility] Mean Platelet Volume 8.7(L) 9.4 - 12.3 fL [facility] Neutrophils Percent Auto 54.8 45 - 73 % [facility] Imm Gran Pct Auto 0.3 0.0 - 0.4 % [facility] Lymphocytes Percent Auto 34.1 20 - 40 % [facility] Monocytes Percent Auto 9.6 2 - 11 % [facility] Eosinophils Percent Auto 0.8 0 - 4 % [facility] Basophils Percent Auto 0.4 0 - 2 % [facility] NRBC Pct Auto 0.0 0.0 - 0.2 /100WBC [facility] Neutrophils Absolute Auto 4.2 2.0 - 8.3 x10*3/uL [facility] Imm Gran Abs Auto 0.02 0.00 - 0.03 X10*3/uL [facility] Lymphocytes Absolute Auto 2.6 1.2 - 4.9 X10*3/uL [facility] Monocytes Absolute Auto 0.7 0.1 - 1.2 X10*3/uL [facility] Eosinophils Absolute Auto 0.1 0.0 - 0.4 X10*3/uL [facility] Basophils Absolute Auto 0.0 0.0 - 0.2 X10*3/uL [facility] NRBC Abs Auto 0.000 0.0 - 0.012 X10*3/uL [facility] 01/27/2025 9:24 AM EDT 01/27/2025 9:26 AM EDT us Generic External Data Provider LAB BLOOD ORDERAB LES Final Result [facility] [address] [place] [address] [phone] * Fundus Photos - OU - Both Eyes (01/25/2025 12:24 PM EDT) Narrative Cindy Meek, OD - 01/25/2025 12:24 PM EDT Right [...] needs follow up JUAN FRANCISCO. us Cindy Gillettefo OD OPHTH PHOTOGRAPHY Final Resul t * Culture, Urine, Routine (01/03/2025 8:37 AM EDT) Urine Urine specimen obtained by clean catch procedure / Unknown 01/03/2025 8:37 AM EDT 01/03/2025 5:18 PM EDT Comment:[facility] Narrative [facility] - 01/05/2025 10:40 AM EDT Urine Culture Report Result Urine Culture < 10,000 cfu/ml Specimen Source: Urine clean catch us Generic External Data Provider LAB MICROBIOLOGY - GENERAL ORDERABLES Final Result [facility] [address] [place] [address] [phone] * CT Pelvis w/o Contrast (12/30/2024 8:24 AM EDT) Anatomical Region Laterality Modality Body, Pelvis Computed Tomogra phy 12/30/2024 8:24 AM EDT Narrative 12/30/2024 8:25 AM EDT ? [facility] ?[address] ?[place] [address] ? CT Scan Report ? Signed ? Patient: Miryam Fan ?MR#: [id number] ?? 06 ? : 1965 ?Acct:[id number] ? Age/Sex: 59 / F ?ADM Date: 04/17/25 ? Loc: HO.CT ? Attending Dr: Hardik Jiang MD ? Ordering Physician: Hardik Jiang MD ?? Date of Service: 12/29/24 ?? Procedure(s): CT pelvis wo IV con ?? Accession Number(s): [id number] ? cc: Sarah Verduzco DO; Hardik Jiang MD ? Report Number: ?? [id number]: Total DLP = ??510.00 mGy-cm ? CLINICAL [...] MD in OV> ?12/30/24 0825 ? DD/ 3 ? TD/TT: 12/30/24823 ? Linen Checker: ? Procedure Note Nitin Ayala - 12/30/[address] [place] [address] [address] Scan Report Signed Patient: Marco Fan#: [id number] 06 : 1965Acct:[id number] Age/Sex: 59 / FADM Date: 12/29/24 Loc: HO.CT Attending Dr: Hardik Jiang MD Ordering Physician: Hardik Jiang MD Date of Service: 12/29/24 Procedure(s): CT pelvis wo IV con Accession Number(s): [id number] cc: Sarah Verduzco DO; Hardik Jiang MD Report Number: [id number]: Total DLP = 510.00 mGy-cm CLINICAL HISTORY: [...] in OV> 12/30/24824 DD/ 3 TD/TT: 12/30/24823 Linen Checker: [facility] External Provider IMG CT PROCEDURES Edited Result - Final * POCT NEREYDA-14 Urine Drug Screen (11/07/2024 2:06 PM EST) Oxycodone Screen, Urine Positive Urine Urine specimen obtained by clean catch procedure / Unknown 11/07/2024 2:06 PM EST Lauryn Bonds RN - 11/07/2024 2:06 PM EST UTOX cup Lot#[id number] Exp. 05/03/26 Internal Pass Control Sarah Verduzco DO POINT OF CARE TEST ENTER/DAVID T ORDERABLES Final Result * BI Mammogram Screening Tomosynthesis Bilateral (06/22/2024 9:45 AM EDT) Anatomical Region Laterality Modality Breast Bilateral Mammography 06/22/2024 9:45 AM EDT Narrative 07/04/2024 6:01 PM EDT ? [facility] [place] ? [address] ?[place] [address] ? Mammography Report ? Signed ? Patient: Miryam Fan ?MR#: [id number] ?? 06 ? : 1965 ?Acct:[id number] ? Age/Sex: 58 / F ?ADM Date: 10/09/24 ? Loc: HO.MAMMO ? Attending Dr: Sarah Verduzco DO ? Ordering Physician: Sarah Verduzco DO ?Results: 1N ?? egative ? Date of Service: 06/22/24 ?Follow Up: 1 Year From Orig ?? inal Mammogram ? Procedure(s): MM tomosynthesis screening BI ?? Accession Number(s): [id number] ? cc: Sarah Verduzco DO ? EXAMINATION: [...] DD/ 0945 ? TD/TT: 06/22/24 0958 ? Linen Checker: ? Procedure Note Donotuseinterpreter, Image - 07/04/2024 [facility] [address] [place] [address] Mammography Report Signed Patient: Miryam FanMR#: [id number] 06 : 1965Acct:[id number] Age/Sex: 58 / FADM Date: 06/22/24 Loc: HO.MAMMO Attending Dr: Sarah Verduzco DO Ordering Physician: Sarah Verduzcoults: 1N egative Date of Service: 06/22/24Follow Up: 1 Year From Orig inal Mammogram Procedure(s): MM tomosynthesis screening BI Accession Number(s): [id number] cc: Sarah Verduzco DO EXAMINATION: MM SCREENING [...] in OV> 07/04/24 1757 DD/ TD/TT: 06/22/2458 Linen Checker: us Sarah Verduzco DO IMG BI PROCEDURES Edited Res ult - Final * Hepatitis C Antibody with Reflex to HCV, RNA, Quantitative, Real-Time PCR (05/04/2024 12:27 PM EDT) Pathologist [facility] Hepatitis C Antibody Nonreactive Nonreactive [facility] Comment:Antibodies to HCV no t detected; does not exclude early acuteHCV infection. Blood Venous blood specimen / Unknown 05/04/2024 12:27 PM EDT 05/04/2024 1:01 PM EDT Sarah Verduzco DO LAB BLOOD ORDERABLES Final R esult Performing Organization Address [facility] Co de Phone Number [facility] [address] [place] [phone] * HIV-1/2 Antigen and Antibodies, Fourth Generation, with Reflexes (05/04/2024 12:27 PM EDT) Pathologist [facility] HIV AB/AG Nonreactive Nonreactive [facility] Comment:HIV-1 p24 Ag and/or HIV-1/HIV-2 Ab not detected.A test result that is nonreactive does not exclude thepossibility of exposure to or infection with HIV-1 and/orHIV-2. Nonreactive results in this assay for individualswith prior exposure to HIV-1 and/or HIV-2 may be due toantigen and antibody levels that are below the limit ofdetection of this assay.The [email or web address] HIV Ag/Ab Combo assay result andsupplemental assay results should be interpreted inconjunction with the patient's clinical presentation,history and other laboratory results. If the results areinconsistent with clinical evidence, additional testing issuggested to confirm the result. Blood Venous blood specimen / Unknown 05/04/2024 12:27 PM EDT 05/04/2024 1:01 PM EDT us Sarah Dax LAB BLOOD ORDERABLES Final R esult Performing Organization Address City/[facility] Co de Phone Number [facility] [address] [place] [address] [place] [address] [phone] * Hm Colonoscopy (03/24/2017 8:58 AM EDT) us Historical Provider MD HEALTH MAINTENANCE Final Result from Last 3 Months or Most Recently Relevant to Health Maintenance Insurance [facility]ARE < [address] [place] [id number] Care Teams Ob Nurse Relationship Specialty Start Date End Date Sarah Verduzco DO [address] [place] [phone] PCP - General Family Medicine 11/21/15
--- OUTSIDE RECORDS SUMMARY | 2025-01-27 09:41 | XMS_ITS | Encounter Summary ---
Author Organization [facility] Address [address] [facility] [place] [address] Care Team Providers Care Keyboard Instrument Tuner Name Role Phone Sarah Verduzco DO Primary Care Provider Aura Kramer MD Unavailable [phone] Mimi Newsome PA-C Unavailable [phone] Kaleb Tripathi PA-C Unavailable Encounter Details Date Type Department Care Team Description 12/16/2021 SCAN [facility] Neurosurgery Emmett Darden [address] [phone] Kaleb Tripathi PA-C [address] [phone] Social History Tobacco Use Types Packs/Day Years [...] on filedocumented in this encounter Care Teams Keyboard Instrument Tuner Relationship Specialty Start Date End Date Sarah Verduzco DO PCP - General Internal Medicine 02/09/18 Aura Pollock MD [address] [phone] Surgeon Neurosurgery 12/09/21 Mimi Newsome PA-C 175 [facility] [address] [place] [address] Specialist Neurosurgery 12/09/21 Kaleb Tripathi PA-C 175 [facility] [address] [place] [address] Specialist Neurosurgery 12/09/21 documented as of this encounter
--- OUTSIDE RECORDS SUMMARY | 2025-01-27 09:41 | XMS_ITS | Encounter Summary ---
Author Organization [facility] Address [address] [facility] [place] [address] Care Team Providers Care Dowel Inserting Machine Operator Name Role Phone Sarah Verduzco DO Primary Care Provider Aura Kramer MD Unavailable [phone] Mimi Newsome PA-C Unavailable Kaleb Tripathi PA-C Unavailable [phone] Encounter Details Date Type Department Care Team Description 12/17/2021 SCAN [facility] Neurosurgery [place] [address] [phone] Kaleb Tripathi PA-C [address] [phone] Social History Tobacco Use Types Packs/Day Years [...] on filedocumented in this encounter Care Teams Dowel Inserting Machine Operator Relationship Specialty Start Date End Date Sarah Verduzco DO PCP - General Internal Medicine 02/09/18 Aura Pollock MD [address] [phone] Surgeon Neurosurgery 12/09/21 Mimi Newsome PA-C 175 [facility] [address] [place] [address] Specialist Neurosurgery 12/09/21 Kaleb Tripathi PA-C 175 [facility] [address] [place] [address] Specialist Neurosurgery 12/09/21 documented as of this encounter
--- OUTSIDE RECORDS SUMMARY | 2025-01-27 09:41 | XMS_ITS | Encounter Summary ---
Author Organization [employer] Address [address] [facility] 7t [place] [address] Care Team Providers Care Water Pumping Station Engineer Name Role Phone Sarah Verduzco DO Primary Care Provider [phone] Reason for Visit * Reason Comments Med Refill Encounter Details Date Type Department Care Team (Late Contact Info) Description 12/19/2022 Refill [facility] MED[facility] [address] [place] [address] Sarah Verduzco DO 230 [place] [address] Social History Tobacco Use Types Packs/Day Years [...] Description 02/08/2025 10:00 AM EDT Clinical Support [facility] [address] [place] [address] Lauryn Cunningham, LUISITO 07/28/2025 11:00 AM EST Office Visit [facility] OPTOMETRY [address] [place] [address] Cindy Meek, OD [address] [place] [address] documented as of this encounter Visit Diagnoses Not on filedocumented in this encounter Care Teams Water Pumping Station Engineer Relationship Specialty Start Date End Date Sarah Verduzco DO [address] [place] [address] PCP - General Family Medicine 11/21/15 documented as of this encounter
--- OUTSIDE RECORDS SUMMARY | 2025-01-27 09:41 | XMS_ITS | Encounter Summary ---
Author Organization [facility] Address [address] [facility] [place] [address] Care Team Providers Care Agency Legal Counsel Name Role Phone Sheila Eubanks MD Primary Care Provider Michael Thapa, Pcp Primary Care Provider Sarah Mckay DO Primary Care Provider [place] Aura Edmondson MD Unavailable [phone] Mimi Newsome PA-C Unavailable [phone] Kaleb Tripathi PA-C Unavailable [phone] Encounter Details Date Type Department Care Team Description 09/11/2017 Transfer Records Medical Records [address] [place] [address] Abstract, Provider Social History Tobacco Use Types Packs/Day Years Used Date Smoking Tobacco: Former Smokeless Tobacco: Never Sex Assigned at Date Recorded Not on file documented as of this encounter Plan of Treatment Not on file documented as of this encounter Visit Diagnoses Not on filedocumented in this encounter Care Teams Agency Legal Counsel Relationship Specialty Start Date End Date Sheila Eubanks MD PCP - General Internal Medicine 05/28/17 01/21/18 Babar Thapa PCP - General Internal Medicine 01/22/18 02/08/18 Sarah Verduzco DO PCP - General Internal Medicine 02/09/18 Aura Pollock MD [address] [phone] Surgeon Neurosurgery 12/09/21 Mimi Newsome PA-C [address] [address] Specialist Neurosurgery 12/09/21 Kaleb Tripathi PA-C 175 [facility] [address] [place] [address] Specialist Neurosurgery 12/09/21 documented as of this encounter
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
--- OUTSIDE RECORDS SUMMARY | 2025-01-27 09:41 | XMS_ITS | Encounter Summary ---
Author Organization [employer] Address [address] 7t [place] [address] Care Team Providers Care Flotation Operator Name Role Phone Sarah Verduzco DO Primary Care Provider [phone] Reason for Visit * Reason Comments Med Refill Encounter Details Date Type Department Care Team ([facility] Contact Info) Description 12/06/2024 Refill [facility] MEDICINE 230 [place], [place] [phone] Sarah Verduzco DO 230 [place], [place] [phone] Social History Tobacco Use Types Packs/Day Years [...] [facility] MEDICINE 230 [place] [address] Lauryn Cunningham RN 07/28/2025 11:00 AM EST Office Visit [facility] OPTOMETRY [address] [place] [address] Fantasma, Cindy, OD 230 [place] [address] documented as of this encounter Visit Diagnoses Not on filedocumented in this encounter Additional Health Concerns Assessment Noted Time PHQ-9 Depression Total Score: 20 025 11:28 AM EST documented as of this encounter Care Teams Flotation Operator Relationship Specialty Start Date End Date Sarah Verduzco DO 230 [place] [address] PCP - General Family Medicine 11/21/15 documented as of this encounter
--- OUTSIDE RECORDS SUMMARY | 2025-01-27 09:41 | XMS_ITS | Encounter Summary ---
Author Organization [employer] Address [address] [facility] 7t [place] [address] Care Team Providers Care Institutional Asset Manager Name Role Phone Sarah Verduzco DO Primary Care Provider [phone] Reason for Visit * Reason Comments Med Refill Encounter Details Date Type Department Care Team (Late Contact Info) Description 10/21/2022 Telephone [facility] MEDICINE 230 [place], [place] [phone] Sarah Verduzco DO 230 [place] [address] Med Refill Social History Tobacco Use Types [...] Description 02/08/2025 10:00 AM EDT Clinical Support [facility] MEDICINE [address] [place] [address] Lauryn Cunningham, RN 07/28/2025 11:00 AM EST Office Visit [facility] OPTOMETRY [address] [place] [address] Cindy Meek, OD 230 [place] [address] documented as of this encounter Visit Diagnoses Not on filedocumented in this encounter Care Teams Institutional Asset Manager Relationship Specialty Start Date End Date Sarah Verduzco DO 230 [place] [address] PCP - General Family Medicine 11/21/15 documented as of this encounter
--- OUTSIDE RECORDS SUMMARY | 2025-01-27 09:41 | XMS_ITS | Clinical Summary ---
Author Organization [facility] Address [address] [facility] [place] [address] Care Team Providers Care Databases Computer Consultant Name Role Phone Sarah Verduzco DO Primary Care Provider Aura Kramer MD Unavailable [phone] Mimi Newsome PA-C Unavailable Kaleb Tripathi PA-C Unavailable [phone] Allergies Active Allergy Reactions Severity Noted Date [...] mouth daily. 0 Active Cholecalciferol (VITAMIN D3) 74533 UNITS Tab Take 1 Tab by mouth [...] infection. 1 Inhaler 5 09/09/2017 Active D3-50 54087 UNITS Cap Take 1 Cap by mouth once a week. 8 Cap 0 07/15/2018 Active Arthritis Pain Relief 650 MG CR tablet TAKE 1 TABLET BY MOUTH EVERY 8 HOURS NEEDED FOR PAIN OR FEVER 0 11/16/2021 Active [id number]-[id number] FEINE 50-325-40 MG OR TABS (FIORICET, ESGIC) [...] Review of the cervical spine MRI at [facility] dated 02/26/2024 shows a solid arthrodesis at [...] the Breast Aunt Arthritis Father RA, DM NM Mother cause of Diabetes Sister 1 Thyroid [...] 09/14/2024 INFLUENZA (Season Ended) 2025 Care Teams Databases Computer Consultant Relationship Specialty Start Date End Date Sarah Verduzco DO PCP - General Internal Medicine 02/09/18 Aura Pollock MD [address] [address] Surgeon Neurosurgery 12/09/21 Mimi Newsome PA-C [address] [address] Specialist Neurosurgery 12/09/21 Kaleb Tripathi PA-C [address] [place] [address] [address] [place] [address] Specialist Neurosurgery 12/09/21
--- OUTSIDE RECORDS SUMMARY | 2025-01-27 09:42 | XMS_ITS | Encounter Summary ---
Author Organization [facility] Address [address] [facility] [place] [address] Care Team Providers Care Skin Care Consultant Name Role Phone Sheila Eubanks MD Primary Care Provider Unava carley Thapa, Pcp Primary Care Provider Sarah Mckay DO Primary Care Provider Unava ilable Aura Pollock MD Unavailable [phone] Mimi Newsome PA-C Unavailable Kaleb Tripathi PA-C Unavailable [phone] Encounter Details Date Type Department Care Team Description 07/08/2017 [facility] Report Medical Records [address] [place] [address] [address] Social History Tobacco Use Types Packs/Day Years Used Date Smoking Tobacco: Never Assessed Sex Assigned at Date Recorded Not on file documented as of this encounter Plan of Treatment Not on file documented as of this encounter Visit Diagnoses Not on filedocumented in this encounter Care Teams Skin Care Consultant Relationship Specialty Start Date End Date Sheila Eubanks MD PCP - General Internal Medicine 05/28/17 01/21/18 Babar Thapa PCP - General Internal Medicine 01/22/18 02/08/18 Sarah Verduzco DO PCP - General Internal Medicine 02/09/18 Aura Pollock MD [address] [address] Surgeon Neurosurgery 12/09/21 Mimi Newsome PA-C [address] [address] Specialist Neurosurgery 12/09/21 Kaleb Tripathi PA-C [address] [address] Specialist Neurosurgery 12/09/21 documented as of this encounter
--- OUTSIDE RECORDS SUMMARY | 2025-01-27 09:42 | XMS_ITS | Encounter Summary ---
Author Organization [employer] Address [address] [place] [address] Care Team Providers Care Cloth Finishing Range Tender Name Role Phone Sarah Verduzco DO Primary Care Provider + [phone] Reason for Visit * Reason Comments Med Refill Encounter Details Date Type Department Care Team ([facility] Contact Info) Description 04/06/2024 Refill [facility] MEDICINE 230 [place], [place] [phone] aSrah Verduzco DO 230 [place], [place] [phone] Social History Tobacco Use Types Packs/Day Years [...] Description 02/08/2025 10:00 AM EDT Clinical Support [facility] MEDICINE 230 [place] [address] Laruyn Cunningham RN 07/28/2025 11:00 AM EST Office Visit [facility] OPTOMETRY [address] [place] [address] Fantasma, Cindy, OD 230 [place] [address] documented as of this encounter Visit Diagnoses Not on filedocumented in this encounter Additional Health Concerns Assessment Noted Time PHQ-9 Depression Total Score: 24 023 8:54 AM EDT documented as of this encounter Care Teams Cloth Finishing Range Tender Relationship Specialty Start Date End Date Sarah Verduzco DO 230 [place] [address] PCP - General Family Medicine 11/21/15 documented as of this encounter
--- OUTSIDE RECORDS SUMMARY | 2025-01-27 09:42 | XMS_ITS | Encounter Summary ---
Author Organization [employer] Address [address] [place] [address] Care Team Providers Care Audiovisual Tech Name Role Phone Sarah Verduzco DO Primary Care Provider [phone] Reason for Visit * Reason Onset Date Comments Nurse Triage 01/27/2025 Encounter Details Date Type Department Care Team ([facility] Contact Info) Description 01/27/2025 Telephone [facility] MEDICINE 230 [place], [place] [phone] Sarah Verduzco DO 230 [place], [place] [phone] Nurse Triage Social History Tobacco Use Types [...] Telephone Encounter - Tori Castillo RN - 01/27/2025 8:39 AM EDT Called pt. No answer and no mailbox set up yet. Unable to leave message. Called pt. X2. No answer. RE: Abdominal pain * Telephone Encounter - Audrey Tanner - 01/27/2025 8:19 AM EDT Symptom: Abdominal Pain - Female - Not Outcome: Talk to a nurse or provider within 15 minutes Reason: Severe pain now The caller accepted this outcome. [phone] documented in this encounter Plan of Treatment Upcoming Encounters Date Type Department Care Team (Late st Contact Info) Description 02/08/2025 10:00 AM EDT Clinical Support [facility] MEDICINE [address] [place] [address] Lauryn Cunningham, LUISITO 07/28/2025 11:00 AM EST Office Visit [facility] OPTOMETRY [address] [place] [address] Cindy Meek, OD 230 [place] [address] documented as of this encounter Visit Diagnoses Not on filedocumented in this encounter Additional Health Concerns Assessment Noted Time PHQ-9 Depression Total Score: 20 025 11:28 AM EST documented as of this encounter Care Teams Audiovisual Tech Relationship Specialty Start Date End Date Sarah Verduzco DO 230 [place] [address] PCP - General Family Medicine 11/21/15 documented as of this encounter
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
--- OUTSIDE RECORDS SUMMARY | 2025-01-27 09:42 | XMS_ITS | Encounter Summary ---
Author Organization [employer] Address [address] [facility] 7t [place] [address] Care Team Providers Care Center Aisle Cashier Name Role Phone Sarah Verduzco DO Primary Care Provider [phone] Reason for Visit * Reason Onset Date Comments Med Refill 03/20/2023 Encounter Details Date Type Department Care Team (Late st Contact Info) Description 03/20/2023 Telephone [facility] MEDICINE 230 [place], [place] [phone] Sarah Verduzco DO 230 [place], [place] [phone] Med Refill Social History Tobacco Use Types [...] 50 mg tablet to be sent to [facility]/pharmacy #[id number] -[place], [place] - [address] documented in this encounter Plan of Treatment Upcoming Encounters Date Type Department Care Team (Late st Contact Info) Description 02/08/2025 10:00 AM EDT Clinical Support [facility] MEDICINE 230 [place] [address] Lauryn Cunningham, RN 07/28/2025 11:00 AM EST Office Visit [facility] OPTOMETRY [address] [place] [address] Cindy Meek, ALBINA 230 [place] [address] documented as of this encounter Visit Diagnoses Not on filedocumented in this encounter Additional Health Concerns Assessment Noted Time PHQ-9 Depression Total Score: 16 023 10:36 AM EDT documented as of this encounter Care Teams Center Aisle Cashier Relationship Specialty Start Date End Date Sarah Verduzco DO 230 [place] [address] PCP - General Family Medicine 11/21/15 documented as of this encounter
--- OUTSIDE RECORDS SUMMARY | 2025-01-27 09:42 | XMS_ITS | Encounter Summary ---
Author Organization [employer] Address [address] [facility] [address]t [place] [address] Care Team Providers Care Costume Designer Name Role Phone Sarah Verduzco DO Primary Care Provider [phone] Reason for Visit * Reason Onset Date Comments Med Refill 01/25/2025 Encounter Details Date Type Department Care Team ([facility] st Contact Info) Description 01/25/2025 Refill [facility] MEDICINE [address] [place], [place] [phone] Sarah Verduzco DO 230 [place] [address] Chronic bilateral low back pain with left-sided [...] 5-325 MG tablet To be sent to: [facility]/pharmacy #[id number] [place], [place] - [facility] [address] [place] documented in this encounter Plan of Treatment Upcoming Encounters Date Type Department Care Team (Late st Contact Info) Description 02/08/2025 10:00 AM EDT Clinical Support [facility] MEDICINE [address] [place] [address] Lauryn Cunningham, RN 07/28/2025 11:00 AM EST Office Visit [facility] OPTOMETRY [address] [place] [address] Cindy Meek, OD 230 [place] [address] documented as of this encounter Visit Diagnoses Diagnosis Chronic bilateral low back pain with left-sided sciatica documented in this encounter Additional Health Concerns Assessment Noted Time PHQ-9 Depression Total Score: 20 025 11:28 AM EST documented as of this encounter Care Teams Costume Designer Relationship Specialty Start Date End Date Sarah Verduzco DO 230 [place] [address] PCP - General Family Medicine 11/21/15 documented as of this encounter
--- OUTSIDE RECORDS SUMMARY | 2025-01-27 09:42 | XMS_ITS | Encounter Summary ---
Author Organization [employer] Address [address] [place] [address] Care Team Providers Care Geoscience Technician Name Role Phone Sarah Verduzco DO Primary Care Provider + [phone] Reason for Visit * Reason Comments Med Refill Encounter Details Date Type Department Care Team ([facility] Contact Info) Description 01/29/2024 Refill [facility] MEDICINE 230 [place], [place] [phone] Sarah Verduzco DO 230 [place], [place] [phone] Social History Tobacco Use Types Packs/Day Years [...] [facility] MEDICINE 230 [place] [address] Lauryn Cunningham RN 07/28/2025 11:00 AM EST Office Visit [facility] OPTOMETRY [address] [place] [address] Fantasma, Cindy, OD 230 [place] [address] documented as of this encounter Visit Diagnoses Not on filedocumented in this encounter Additional Health Concerns Assessment Noted Time PHQ-9 Depression Total Score: 24 023 8:54 AM EDT documented as of this encounter Care Teams Geoscience Technician Relationship Specialty Start Date End Date Sarah Verduzco DO 230 [place] [address] PCP - General Family Medicine 11/21/15 documented as of this encounter
--- OUTSIDE RECORDS SUMMARY | 2025-01-27 09:42 | XMS_ITS | Clinical Summary ---
Author Organization [address] [facility] Address 175 [place] [address] Phone Care Team Providers Care Certification Engineer Name Role Phone Sarah Verduzco Primary Care Provider [phone]- [phone] Allergies Active Allergy Reactions Criticality Noted Date [...] study, she states it was done at [facility] neurology, we called to have it faxed over, it is dated 09/09/2023 and showed normal motor and sensory nerve conduction study. Normal EMG except may suggest mild chronic L5 radiculopathy. She also had lumbar spine MRI 07/02/2024 at [facility], there is no official [...] opioids 07/07/2024 Overview (08/04/2024): Dx: Rx: Last RANCH MANAGER agreement: Tier II (visit every 3 [...] Review of the cervical spine MRI at [facility] dated 02/26/2024 shows a solid arthrodesis at [...] images of her prior C-spine MRI from [facility] 02/26/2024 that showed solid [...] LIGATION PROCEDURE: HISTORICAL TUBAL LIGATION CHOLECYSTECTOMY PROCEDURE: OK LAPAROSCOPY SURG CHOLECYSTECTOMY EYE SURGERY PROCEDURE: HISTORICAL [...] ID:[id number] Group ID:[id number] Type:Not on file Address: [place] [address] [address] [place] [address] Care Teams Certification Engineer Relationship Specialty Start Date End Date Sarah Verduzco DO [address] [place] [address] PCP - General Internal Medicine 02/09/18
--- OUTSIDE RECORDS SUMMARY | 2025-01-27 09:42 | XMS_ITS | Encounter Summary ---
Author Organization [email or web address] Address [address] [facility] [address] [address]t [place] [address] Care Team Providers Care Customer Experience Specialist Name Role Phone Sarah Verduzco DO Primary Care Provider + [phone] Encounter Details Date Type Department Care Team (Late st Contact Info) Description 12/22/[address] [facility] MEDICINE 230 [place], [place] [phone] ProviderTristan MD Social History Tobacco Use Types [...] Description 02/08/2025 10:00 AM EDT Clinical Support [facility] MEDICINE 230 [place] [address] Lauryn Cunningham, LUISITO 07/28/2025 11:00 AM EST Office Visit [facility] OPTOMETRY [address] [place], [place] [phone] Cindy Meek, ALBINA 230 [place] [address] documented as of this encounter Procedures Procedure [...] documented as of this encounter Care Teams Customer Experience Specialist Relationship Specialty Start Date End Date Sarah Verduzco DO 230 [place] [address] PCP - General Family Medicine 11/21/15 documented as of this encounter
--- OUTSIDE RECORDS SUMMARY | 2025-01-27 09:42 | XMS_ITS | Encounter Summary ---
Author Organization [employer] Address [address] [facility] [place] [address] Care Team Providers Care Social Staff Worker Name Role Phone Sarah Verduzco DO Primary Care Provider [phone] Reason for Visit * Reason Onset Date Comments Med Refill 01/25/2025 Encounter Details Date Type Department Care Team ([facility] st Contact Info) Description 01/25/2025 Refill [facility] MEDICINE 230 [place], [place] [phone] Sarah Verduzco DO 230 [place], [place] [phone] Chronic nonintractable headache, unspecified headache type Social [...] requesting medication refill. Medications needing refill : qnjwjbwaje-jjkaeoadxbgtu-mtpzperk 50-325-40 MG tablet To be sent to: [facility] - [place], [place] - [address] [facility] documented in this encounter Plan of Treatment Upcoming Encounters Date Type Department Care Team (Late st Contact Info) Description 02/08/2025 10:00 AM EDT Clinical Support [facility] MEDICINE 230 [place] [address] Lauryn Cunningham RN 07/28/2025 11:00 AM EST Office Visit [facility] OPTOMETRY [address] [place] [address] Cindy Meek, ALBINA 230 [place] [address] documented as of this encounter Visit Diagnoses Diagnosis Chronic nonintractable headache, unspecified headache type documented in this encounter Additional Health Concerns Assessment Noted Time PHQ-9 Depression Total Score: 20 025 11:28 AM EST documented as of this encounter Care Teams Social Staff Worker Relationship Specialty Start Date End Date Sarah Verduzco DO 230 [place] [address] PCP - General Family Medicine 11/21/15 documented as of this encounter
--- OUTSIDE RECORDS SUMMARY | 2025-01-27 09:42 | XMS_ITS | Encounter Summary ---
Author Organization [employer] Address [address] [place] [address] Care Team Providers Care Chemical Engineering Professor Name Role Phone Sarah Verduzco DO Primary Care Provider [phone] Reason for Visit * Reason Onset Date Comments Medication Question 03/24/2023 Encounter Details Date Type Department Care Team ([facility] st Contact Info) Description 03/24/2023 Telephone [facility] MEDICINE 230 [place], [place] [phone] Sarah Verduzco DO 230 [place] [address] Medication Question Social History Tobacco Use Types [...] used to receive. Please contact pt at [phone] documented in this encounter Plan of Treatment Upcoming Encounters Date Type Department Care Team (Late st Contact Info) Description 02/08/2025 10:00 AM EDT Clinical Support [facility] MEDICINE 230 [place] [address] Lauryn Cunningham RN 07/28/2025 11:00 AM EST Office Visit [facility] OPTOMETRY [address] [place], [place] [phone] Cindy Meek, OD 230 [place] [address] documented as of this encounter Visit Diagnoses Not on filedocumented in this encounter Additional Health Concerns Assessment Noted Time PHQ-9 Depression Total Score: 16 023 10:36 AM EDT documented as of this encounter Care Teams Chemical Engineering Professor Relationship Specialty Start Date End Date Sarah Verduzco DO 230 [place] [address] PCP - General Family Medicine 11/21/15 documented as of this encounter
--- OUTSIDE RECORDS SUMMARY | 2025-01-27 09:42 | XMS_ITS | Encounter Summary ---
Author Organization [employer] Address [address] 7t [place] [address] Care Team Providers Care Extrusion Engineer Name Role Phone Sarah Verduzco DO Primary Care Provider [phone] Reason for Visit * Reason Comments Decreased Visual Acuity Encounter Details Date Type Department Care Team ([facility] st Contact Info) Description 01/25/2025 10:30 AM EDT Office Visit [facility] OPTOM[facility]RY [address] [place] [address] Fantasma, Cindy, OD [address] [place] [address] Macular hemorrhage of right eye (Primary Dx); [...] right eye. She saw Dr. Ashford at [facility] who diagnoseda retinal detachment and performed [...] exam was within the last year at [facility]. She is supposed to be seen [...] by mouth 3 times daily. For anxiety agacarvanu-xeuenenxbokoc-bxyzdomw 50-325-40 MG tablet TAKE 1 TABLET BY [...] oil Clear Disc Pallor 360 degrees, distinct Ceres and Distinct C/D Ratio Vertical 0.1 0.45 [...] right eye Refraction Wearing Rx Sphere Cylinder [place] Add Right -0.50 -0.75 105 +1.50 Left -0.50 -0.50 075 +1.50 Manifest Refraction (Subjective) Sphere Cylinder [place] Dist VA Right Balance Left Wyatt -0.75 055 +2.25 Manifest Refraction #2 (Auto) Sphere Cylinder [place] Dist VA Right +3.25 -8.00 007 Left Wyatt -0.75 055 Dist VA Both: 20/20 Near VA Both: 20/20 Final Rx Sphere Cylinder [place] Dist VA Right Balance Left Wyatt -0.75 055 +2.25 Expiration Date: 01/25/2026 Comments: [...] potential need for treatment. I will contact [facility] and send today's notes so a [...] retinal exam notes by Dr. Stone at [facility] in 09/2023. 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 This condition does not interfere with central vision or cause any symptoms. Complications of having thin areas in the retina include an increased risk of developingtears in the retina which could lead to a retinal detachment. The patient was educated to [facility] if they experience a sudden onset of flashes, floaters, or decreased vision as these are the symptoms of a possible retinal complication. Otherwise, will monitor in 1 year. 7. Blindness right eye category 4, normal vision left eye Finger counting vision peripherally in the right eye. 20/20 in the left eye. 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 She stated her understanding. 8. Presbyopia Glasses prescription updated and given. Polycarbonate lenses medically necessary due to monocular status. Will monitor at the patient's next full eye exam. Cindy Meek, OD 01/25/2025, 12:26 PM Manager Filter Source: _x__ None ___ Bilingual Staff ___ Qualified Staff Uranium Processing Supervisor ___ Telephone Manager Filter; ID# ___ Manager Filter brought by patient (family member, friend, SOFTWARE PRODUCT MANAGER, etc) ___ In person recovery coach ___ Ipad Manager Filter; ID#: Language Spoken During Exam: __English documented in this encounter Plan of Treatment Upcoming Encounters Date Type Department Care Team (Late st Contact Info) Description 02/08/2025 10:00 AM EDT Clinical Support [facility] MEDICINE [address] [place] [address] Lauryn Cunningham RN 07/28/2025 11:00 AM EST Office Visit [facility] OPTOM[facility]RY [address] [place], [place] [phone] Cindy Meek, OD [address] [place] [address] documented as of this encounter Procedures Procedure [...] documented as of this encounter Care Teams Extrusion Engineer Relationship Specialty Start Date End Date Sarah Verduzco DO [address] [place] [address] PCP - General Family Medicine 11/21/15 documented as of this encounter
--- OUTSIDE RECORDS SUMMARY | 2025-01-27 09:42 | XMS_ITS | Encounter Summary ---
Author Organization [employer] Address [address] [place] [address] Care Team Providers Care Tax Manager Name Role Phone Sarah Verduzco DO Primary Care Provider + [phone] Encounter Details Date Type Department Care Team ([facility] Contact Info) Description 01/27/2025 Orders Only GENERIC EXTERNAL DATA [...] Support [facility] MED[facility] [address] [place] [address] Lauryn Cunningham RN 07/28/2025 11:00 AM EST Office Visit [facility] OPTOMETRY [address] [place] [address] Fantasma, Cindy, OD [address] [place] [address] documented as of this encounter Procedures Procedure Name Priority Date/Time Associated Diagnosis Comments URINALYSIS, COMPLETE, WITH REFLEX TO CULTURE Routine 01/27/2025 9:24 AM EDT CBC WITH AUTO DIFFERENTIAL Routine 01/27/2025 9:24 AM EDT documented in this encounter Results * (ABNORMAL) CBC auto differential (01/27/2025 9:24 AM EDT) White Blood Count 7.7 4.8 - 10.8 X10*3/uL [facility] Red Blood Count 3.86(L) 4.20 - 5.50 X10*6/uL [facility] Hemoglobin 11.6(L) 12.0 - 16.0 g/dl [facility] Hematocrit 35.2(L) 37.0 - 47.0 % [facility] Mean Corpuscular Volume 91.2 80.0 - 98.0 fL [facility] Mean Corpuscular Hemoglobin 30.1 27.0 - 33.0 pg [facility] Mean Corpuscular HGB Conc 33.0 31.0 - 35.0 g/dl [facility] Red Cell Distribution Width 13.1 11.0 - 16.0 % [facility] Platelet Count 280 160 - 400 X10*3/uL [facility] Mean Platelet Volume 8.7(L) 9.4 - 12.3 fL [facility] Neutrophils Percent Auto 54.8 45 - 73 % [facility] Imm Gran Pct Auto 0.3 0.0 - 0.4 % [facility] Lymphocytes Percent Auto 34.1 20 - 40 % [facility] Monocytes Percent Auto 9.6 2 - 11 % [facility] Eosinophils Percent Auto 0.8 0 - 4 % [facility] Basophils Percent Auto 0.4 0 - 2 % [facility] NRBC Pct Auto 0.0 0.0 - 0.2 /100WBC [facility] Neutrophils Absolute Auto 4.2 2.0 - 8.3 x10*3/uL [facility] Imm Gran Abs Auto 0.02 0.00 - 0.03 X10*3/uL [facility] Lymphocytes Absolute Auto 2.6 1.2 - 4.9 X10*3/uL [facility] Monocytes Absolute Auto 0.7 0.1 - 1.2 X10*3/uL [facility] Eosinophils Absolute Auto 0.1 0.0 - 0.4 X10*3/uL [facility] Basophils Absolute Auto 0.0 0.0 - 0.2 X10*3/uL [facility] NRBC Abs Auto 0.000 0.0 - 0.012 X10*3/uL [facility] 01/27/2025 9:24 AM EDT 01/27/2025 9:26 AM EDT us Generic External Data Provider LAB BLOOD ORDERAB LES Final Result Performing Organization Address [facility]/ZIP Co de Phone Number [facility] [address] [place] [address] [phone] * (ABNORMAL) Urinalysis, Complete, with Reflex to Culture (01/27/2025 9:24 AM EDT) Color Urine Yellow [facility] Appearance Urine Clear [facility] PH 7.5 5.0 - 9.0 [facility] Glucose Urine UA Negative Negative mg/dL [facility] Urine Blood Small (1+)(A) Negative [facility] Specific Roxana - Urine 1.025 1.005 - 1.025 [facility] Urine Protein Trace Neg-Trace mg/dL [facility] Urine Ketones Trace Negative mg/dL [facility] Nitrite Urine Negative Negative [facility] Leukocyte Esterase Urine Small (1+)(A) Negative [facility] RBC Urine 11-20(A) 0 - 2 /HPF [facility] Urine WBC 6-10(A) 0 - 5 /HPF [facility] Urine Squamous Epithelial Cell 11-20 0 - 2 /HPF [facility] Urine Bacteria Trace None Seen [facility] Hyaline Casts, Urine 0-2 0 - 2 /LPF [facility] 01/27/2025 9:24 AM EDT 01/27/2025 9:26 AM EDT Narrative [facility] - 01/27/2025 9:35 AM EDT [id number], Clean Catch us Generic External Data Provider LAB URINE ORDERAB LES Final Result Performing Organization Address [facility] Co de Phone Number [facility] [address] [place] [address] [phone] documented in this encounter Visit Diagnoses Not on filedocumented in this encounter Additional Health Concerns Assessment Noted Time PHQ-9 Depression Total Score: 20 025 11:28 AM EST documented as of this encounter Care Teams Tax Manager Relationship Specialty Start Date End Date Sarah Verduzco DO [address] [place] [address] PCP - General Family Medicine 11/21/15 documented as of this encounter
--- OUTSIDE RECORDS SUMMARY | 2025-01-27 09:42 | XMS_ITS | Encounter Summary ---
Author Organization [employer] Address [address] [place] [address] Care Team Providers Care Photography Spotter Name Role Phone Sarah Verduzco DO Primary Care Provider [phone] Reason for Visit * Reason Onset Date Comments Med Refill 01/25/2025 Encounter Details Date Type Department Care Team ([facility] Contact Info) Description 01/25/2025 Telephone [facility] MEDICINE [address] [place], [place] [phone] Sarah Verduzco DO [address] [place], [place] [phone] Med Refill Social History Tobacco Use Types [...] 12:26 PM EDT Medication was sent to [facility] on 11/29/24 with 5 refills. * Telephone Encounter - Lynn Denton - 01/25/2025 12:16 PM EDT TC from pt requesting medication refill. Medications needing refill : hydroquinone 4 % cream To be sent to: [facility] - [place], [place] - [address] [facility] documented in this encounter Plan of Treatment Upcoming Encounters Date Type Department Care Team (Late st Contact Info) Description 02/08/2025 10:00 AM EDT Clinical Support [facility] MEDICINE [address] [place] [address] Lauryn Cunningham, RN 07/28/2025 11:00 AM EST Office Visit [facility] OPTOMETRY [address] [place] [address] Cindy Meek, OD [address] [place] [address] documented as of this encounter Visit Diagnoses Not on filedocumented in this encounter Additional Health Concerns Assessment Noted Time PHQ-9 Depression Total Score: 20 11/14/ 025 11:28 AM EST documented as of this encounter Care Teams Photography Spotter Relationship Specialty Start Date End Date Sarah Verduzco DO [address] [place] [address] PCP - General Family Medicine 11/21/15 documented as of this encounter
--- OUTSIDE RECORDS SUMMARY | 2025-01-27 09:42 | XMS_ITS | Encounter Summary ---
Author Organization [employer] Address [address] [place] [address] Care Team Providers Care National Service Officer Name Role Phone Sarah Verduzco DO Primary Care Provider [phone] Reason for Visit * Reason Onset Date Comments Nurse Triage 11/16/2023 Encounter Details Date Type Department Care Team ([facility] st Contact Info) Description 11/16/2023 Telephone [facility] MEDICINE [address] [place], [place] [phone] Sarah Verduzco DO [address] [place], [place] [phone] Nurse Triage Social History Tobacco Use Types [...] past 12 months, has t he electric, [employer] oil or water [employer] threatened to shut off services in your [...] this time. Pt [facility]'t [facility]to go to [facility] . Pt agrees with this plan [...] [facility] [address] [place] [address] Lauryn Cunningham, LUISITO 07/28/2025 11:00 AM EST Office Visit [facility] OPTOMETRY [address] [place] [address] Cindy Meek, OD [address] [place] [address] documented as of this encounter Visit Diagnoses Not on filedocumented in this encounter Additional Health Concerns Assessment Noted Time PHQ-9 Depression Total Score: 24 023 8:54 AM EDT documented as of this encounter Care Teams National Service Officer Relationship Specialty Start Date End Date Sarah Verduzco DO [address] [place] [address] PCP - General Family Medicine 11/21/15 documented as of this encounter
--- OUTSIDE RECORDS SUMMARY | 2025-01-27 09:42 | XMS_ITS | Encounter Summary ---
Author Organization [employer] Address [address] [place] [address] Care Team Providers Care Director Internal Audit Name Role Phone Sarah Verduzco DO Primary Care Provider + [phone] Reason for Visit * Reason Comments Med Refill Encounter Details Date Type Department Care Team ([facility] st Contact Info) Description 01/05/2024 Refill [facility] MEDICINE [address] [place], [place] [phone] Sarah Verduzco DO [address] [place], [place] [phone] Social History Tobacco Use Types Packs/Day Years [...] Description 02/08/2025 10:00 AM EDT Clinical Support [facility] MEDICINE [address] [place] [address] Lauryn Cunningham RN 07/28/2025 11:00 AM EST Office Visit [facility] OPTOMETRY [address] [place] [address] Fantasma, Cindy, OD [address] [place] [address] documented as of this encounter Visit Diagnoses Not on filedocumented in this encounter Additional Health Concerns Assessment Noted Time PHQ-9 Depression Total Score: 24 023 8:54 AM EDT documented as of this encounter Care Teams Director Internal Audit Relationship Specialty Start Date End Date Sarah Verduzco DO [address] [place] [address] PCP - General Family Medicine 11/21/15 documented as of this encounter
--- OUTSIDE RECORDS SUMMARY | 2025-01-27 09:42 | XMS_ITS | Encounter Summary ---
Author Organization [employer] Address [address] [place] [address] Care Team Providers Care Mold Making Supervisor Name Role Phone Sarah Verduzco DO Primary Care Provider [phone] Encounter Details Date Type Department Care Team [...] Support [facility] MEDICINE [address] [place] [address] Lauryn Cunningham RN 07/28/2025 11:00 AM EST Office Visit [facility] OPTOMETRY [address] [place] [address] Fantasma, Cindy, OD [address] [place] [address] documented as of this encounter Visit Diagnoses Not on filedocumented in this encounter Additional Health Concerns Assessment Noted Time PHQ-9 Depression Total Score: 20 025 11:28 AM EST documented as of this encounter Care Teams Mold Making Supervisor Relationship Specialty Start Date End Date Sarah Verduzco DO [address] [place] [address] PCP - General Family Medicine 11/21/15 documented as of this encounter
--- OUTSIDE RECORDS SUMMARY | 2025-01-27 09:42 | XMS_ITS | Encounter Summary ---
Author Organization [employer] Address [address] [facility] [address] [place] [address] Care Team Providers Care Chummer Name Role Phone Sarah Verduzco DO Primary Care Provider [phone] Reason for Visit * Reason Comments Med Refill Encounter Details Date Type Department Care Team (Late Contact Info) Description 04/19/2023 Refill [facility] MEDICINE [address] [place] [address] Alexa Padgett FNP [address] [place] [address] Dept of Internal Medicine [place] [phone] Chronic bilateral low back pain without sciatica [...] Description 02/08/2025 10:00 AM EDT Clinical Support [facility] MEDICINE [address] [place] [address] Lauryn Cunningham, RN 07/28/2025 11:00 AM EST Office Visit [facility] OPTOMETRY [address] [place], [place] [phone] Cindy Meek, OD [address] [place] [address] documented as of this encounter Visit Diagnoses Diagnosis Chronic bilateral low back pain without sciatica documented in this encounter Additional Health Concerns Assessment Noted Time PHQ-9 Depression Total Score: 16 023 10:36 AM EDT documented as of this encounter Care Teams Chummer Relationship Specialty Start Date End Date Sarah Verduzco DO [address] [place] [address] PCP - General Family Medicine 11/21/15 documented as of this encounter
--- OUTSIDE RECORDS SUMMARY | 2025-01-27 09:42 | XMS_ITS | Encounter Summary ---
Author Organization [employer] Address [address] [place] [address] Care Team Providers Care Passenger Solicitor Name Role Phone Sarah Verduzco DO Primary Care Provider [phone] Reason for Visit * Reason Comments Med Refill Encounter Details Date Type Department Care Team ([facility] Contact Info) Description 10/05/2024 Refill [facility] MEDICINE [address] [place], [place] [phone] Sarah Verduzco DO [address] [place], [place] [phone] Social History Tobacco Use Types Packs/Day Years [...] Support [facility] MEDICINE [address] [place] [address] Lauryn Cunningham RN 07/28/2025 11:00 AM EST Office Visit [facility] OPTOMETRY [address] [place] [address] Fantasma, Cindy, OD [address] [place] [address] documented as of this encounter Visit Diagnoses Not on filedocumented in this encounter Additional Health Concerns Assessment Noted Time PHQ-9 Depression Total Score: 11 024 10:42 AM EDT documented as of this encounter Care Teams Passenger Solicitor Relationship Specialty Start Date End Date Sarah Verduzco DO [address] [place] [address] PCP - General Family Medicine 11/21/15 documented as of this encounter
--- OUTSIDE RECORDS SUMMARY | 2025-01-27 09:42 | XMS_ITS | Encounter Summary ---
Author Organization [employer] Address [address] [place] [address] Care Team Providers Care Wire Coiler Machine Operator Name Role Phone Sarah Verduzco DO Primary Care Provider [phone] Reason for Visit * Reason Onset Date Comments Nurse Triage 04/20/2023 Encounter Details Date Type Department Care Team ([facility] st Contact Info) Description 04/20/2023 Telephone [facility] MEDICINE [address] [place], [place] [phone] Sarah Verduzco DO [address] [place], [place] [phone] Nurse Triage Social History Tobacco Use Types [...] Clinical Support [facility] MEDICINE [address] [place] [address] Lauryn Cunningham, LUISITO 07/28/2025 11:00 AM EST Office Visit [facility] OPTOMETRY [address] [place], [place] [phone] Cindy Meek, OD [address] [place] [address] documented as of this encounter Visit Diagnoses Not on filedocumented in this encounter Additional Health Concerns Assessment Noted Time PHQ-9 Depression Total Score: 16 05/16/2 023 10:36 AM EDT documented as of this encounter Care Teams Wire Coiler Machine Operator Relationship Specialty Start Date End Date Sarah Verduzco DO [address] [place] [address] PCP - General Family Medicine 11/21/15 documented as of this encounter
--- OUTSIDE RECORDS SUMMARY | 2025-01-27 09:42 | XMS_ITS | Encounter Summary ---
Author Organization [employer] Address [address] [place] [address] Care Team Providers Care Investigation Officer Name Role Phone Sarah Verduzco DO Primary Care Provider [phone] Reason for Visit * Reason Onset Date Comments Appointment Request 04/04/2024 Encounter Details Date Type Department Care Team ([facility] Contact Info) Description 04/04/2024 Telephone [facility] MEDICINE [address] [place], [place] [phone] Sarah Verduzco DO [address] [place], [place] [phone] Appointment Request Social History Tobacco Use Types [...] management appt 04/05. Please contact pt at [phone]. documented in this encounter Plan of Treatment Upcoming Encounters Date Type Department Care Team (Late st Contact Info) Description 02/08/2025 10:00 AM EDT Clinical Support [facility] MEDICINE [address] [place] [address] Lauryn Cunningham, RN 07/28/2025 11:00 AM EST Office Visit [facility] OPTOMETRY [address] [place] [address] Cindy Meek, OD [address] [place] [address] documented as of this encounter Visit Diagnoses Not on filedocumented in this encounter Additional Health Concerns Assessment Noted Time PHQ-9 Depression Total Score: 24 023 8:54 AM EDT documented as of this encounter Care Teams Investigation Officer Relationship Specialty Start Date End Date Sarah Verduzco DO [address] [place] [address] PCP - General Family Medicine 11/21/15 documented as of this encounter
--- OUTSIDE RECORDS SUMMARY | 2025-01-27 09:42 | XMS_ITS | Encounter Summary ---
Author Organization [employer] Address [address] [facility] 7t [place] [address] Care Team Providers Care Director State Pharmacy Name Role Phone Sarah Verduzco DO Primary Care Provider [phone] Reason for Visit * Reason Comments Med Refill Encounter Details Date Type Department Care Team (Late st Contact Info) Description 04/19/2023 Refill [facility] MEDICINE [address] [place], [place] [phone] Sarah Verduzco DO [address] [place] [address] Chronic GERD Social History Tobacco Use Types [...] Description 02/08/2025 10:00 AM EDT Clinical Support [facility] MEDICINE [address] [place] [address] Lauryn Cunningham RN 07/28/2025 11:00 AM EST Office Visit [facility] OPTOMETRY [address] [place] [address] Cindy Meek, OD [address] [place] [address] documented as of this encounter Visit Diagnoses Diagnosis Chronic GERD documented in this encounter Additional Health Concerns Assessment Noted Time PHQ-9 Depression Total Score: 16 023 10:36 AM EDT documented as of this encounter Care Teams Director State Pharmacy Relationship Specialty Start Date End Date Sarah Verduzco DO [address] [place] [address] PCP - General Family Medicine 11/21/15 documented as of this encounter
--- OUTSIDE RECORDS SUMMARY | 2025-01-27 09:42 | XMS_ITS | Encounter Summary ---
Author Organization [employer] Address [address] [place] [address] Care Team Providers Care Clinical Biochemical Geneticist Name Role Phone Sarah Verduzco DO Primary Care Provider + [phone] Reason for Visit * Reason Comments Med Refill Encounter Details Date Type Department Care Team ([facility] Contact Info) Description 03/31/2024 Refill [facility] MEDICINE [address] [place], [place] [phone] Sarah Verduzco DO 230 [place], [place] [phone] Social History Tobacco Use Types Packs/Day Years [...] Description 02/08/2025 10:00 AM EDT Clinical Support [facility] MEDICINE [address] [place] [address] Lauryn Cunningham RN 07/28/2025 11:00 AM EST Office Visit [facility] OPTOMETRY [address] [place] [address] Fantasma, Cindy, OD 230 [place] [address] documented as of this encounter Visit Diagnoses Not on filedocumented in this encounter Additional Health Concerns Assessment Noted Time PHQ-9 Depression Total Score: 24 023 8:54 AM EDT documented as of this encounter Care Teams Clinical Biochemical Geneticist Relationship Specialty Start Date End Date Sarah Verduzco DO [address] [place] [address] PCP - General Family Medicine 11/21/15 documented as of this encounter
[2025-01-27 09:55] LABS: Anion Gap 10 (12-20); Blood Urea Nitrogen 12 mg/dL (9-16); Calcium 8.9 mg/dL (8.4-10.2); Carbon Dioxide 30 mmol/L (22-29); Chloride 107 mmol/L (96-108); Creatinine Clr Calc Pharmacy 65.6; Estimated Glomerular Filt Rate > 60; Glucose Random 112 mg/dL (60-115); Sodium 143 mmol/L (135-145)
--- NOTE | 2025-01-27 10:07 | ED_ITS ---
HPI - General Adult General Chief complaint: Abdominal Pain Stated complaint: L Side Pain Time Seen by Provider: 01/27/25 10:07 Source: patient, RN notes reviewed and old records reviewed Mode of arrival: ambulatory Limitations: no limitations History of Present Illness ED Provider: CHRISTOPHER Kaur HPI narrative: 59-year-old female with PMHx of chronic UTI, HLD, fibromyalgia, anxiety, depression, asthma, GERD presents to the emergency department today with 2 days of left lower quadrant pain radiating to left flank. She has had more frequent bowel movements over the last 2 days that improves her abdominal pain. Patient is somewhat a poor historian as she can not recall if she has had this pain before or this is acute pain. She states that she saw her doctor yesterday here at [facility] for a follow-up of pelvic CT done 12/30/2024 which revealed no acute processes. She denies vomiting, black or tarry stool, diarrhea. Onset (ago): day(s) (2) Location: abdomen (LLQ radiating to left flank) Radiation: back (Left flank) Severity: mild Quality: constant Pain Consistency: constant Relieving factors: none Exacerbating factors: none Associated symptoms: nausea/vomiting (Nausea without vomiting) Treatments prior to arrival: none Related Data Home Medications ?Medication ?Instructions ?Recorded ?Confirmed albuterol sulfate 90 mcg/actuation 2 puff PO Q4-6H PRN Shortness Of 09/04/20 11/10/24 aerosol inhaler Breath clonazepam 1 mg tablet 1 tab PO DAILY PRN Anxiety 09/04/20 11/10/24 zolpidem 10 mg tablet 1 tab PO BEDTIME PRN Insomnia 09/04/20 11/10/24 buspirone 5 mg tablet 5 mg PO TID anxiety 07/02/21 11/10/24 docusate sodium 100 mg capsule 100 mg PO BID PRN Constipation 06/06/22 11/10/24 fluticasone propionate 110 1 puff inhalation BID 06/06/22 11/10/24 mcg/actuation HFA aerosol inhaler (Flovent HFA) loratadine 10 mg tablet 10 mg PO DAILY 06/06/22 11/10/24 escitalopram oxalate 10 mg tablet 10 mg PO DAILY 12/05/22 11/10/24 diclofenac sodium 1 % topical gel 1 ea topical BID 06/26/23 11/10/24 fluticasone propionate 50 1 spray intranasal DAILY 06/26/23 11/10/24 mcg/actuation nasal spray,suspension acetaminophen 650 mg 650 mg PO Q6H PRN Pain 08/28/23 11/10/24 tablet,extended release fluticasone furoate 100 1 inh inhalation DAILY 10/08/23 11/10/24 mcg/actuation blister powder for inhalation (Arnuity Ellipta) cholecalciferol (vitamin D3) 50 50 mcg PO DAILY 05/30/24 11/10/24 mcg (2,000 unit) capsule atorvastatin 40 mg tablet 40 mg PO DAILY 08/26/24 11/10/24 baclofen 10 mg tablet 10 mg PO TID 08/26/24 11/10/24 roeyknnxti-qnrrolwwlgthk-wkfgmcaq tab PO 08/26/24 11/10/24 50 mg-325 mg-40 mg tablet oxycodone-acetaminophen 2.5 mg-325 1 tab PO Q8H PRN 08/26/24 11/10/24 mg tablet (Percocet) Previous Rx's ?Medication ?Instructions ?Recorded tizanidine 2 mg tablet 2 mg PO BID PRN muscle spasticity 10/28/23 #60 tabs lansoprazole 30 mg capsule,delayed 30 mg PO BID #180 caps 12/29/24 release cranberry extract 425 mg capsule 425 mg PO BID #60 caps 01/03/25 estradiol 10 mcg vaginal tablet 10 mcg vaginal 2XW #24 tabs 01/03/25 (Vagifem) nitrofurantoin macrocrystal 50 mg 50 mg PO .COMPLEX #30 caps 01/03/25 capsule Allergies Allergy/AdvReac Type Severity Reaction Status Date / Time Iodinated Contrast Media Allergy Intermediate HIVES Verified 01/27/25 09:16 [CONTRAST, IV] iopromide [From ULTRAVIST] Allergy Intermediate HIVES Verified 01/27/25 09:16 ibuprofen [From MOTRIN] AdvReac Intermediate NAUSEA & Verified 01/27/25 09:16 VOMITING Review of Systems 2 Review of Systems: As per HPI Yes all other systems are reviewed and are negative PMFSH Past Medical History Medical History Hyperlipidemia Non-toxic multinodular goiter Fibromyalgia Arthritis History of fibromyalgia History of anxiety History of headache Depression Lab test positive for detection of COVID-19 virus Asthma GERD (gastroesophageal reflux disease) Arthropathy of lumbar facet joint Spondylosis of lumbosacral spine without myelopathy Postlaminectomy syndrome, cervical Surgical History History of biopsy Hx laparoscopic cholecystectomy Hx of hysterectomy Hx of cervical discectomy History of esophagogastroduodenoscopy (EGD) History of colonoscopy Family History Family History Father No problems noted. Mother History of heart attack Social History Social History Household Members: None Housing: Apartment Alcohol intake: never Patient Tobacco Use Status: Never used Tobacco Advance Directives: No Advance Directives Information Provided: Yes Do you have a plan to hurt others: No Plan Physical Exam ED Vital Signs: Vital Signs - 24 hr 01/27/25 09:14 Temperature 98.7 F Pulse Rate 99 Respiratory Rate 18 Blood Pressure 122/76 Pulse Oximetry 98 Oxygen Delivery Method Room Air BMI result Body Mass Index 26.3 Const General: cooperative, healthy appearing and no acute distress Orientation/consciousness: oriented to person, oriented to place, oriented to time and patient oriented x3 Limitations: no limitations HENMT Head: Yes normocephalic and Yes atraumatic Ears: external ears normal General nose exam: Normal external nose present Face and sinus: Yes face symmetric Mouth: oropharynx normal and moist mucous membranes Throat: Yes uvula midline Eyes Pupils: Equal, round and reactive pupils present Neck Neck: Yes normal visual inspection and Yes supple Resp Effort & Inspection: normal respiratory effort and able to speak in complete sentences Auscultation: clear to auscultation bilaterally Cardio Rate: regular rate Rhythm: regular rhythm Heart sounds: S1 normal heart sound present and S2 normal heart sound present GI Palpation (GI): Soft to palpation, Tenderness to palpation present (GI), no guarding, not rigid, No Rebound tenderness present and No Bladder palpation abnormal Auscultation: normoactive bowel sounds General: No Bladder palpation abnormal and Yes no CVA tenderness Back/Spine/Pelvis Back: no CVA tenderness Skin General skin exam: elasticity normal and turgor normal Neuro General: oriented to person, oriented to place, oriented to time, patient oriented x3, moves all extremities, no focal motor deficits and CN's II-XI intact bilaterally Cranial nerves: Yes Equal, round and reactive pupils present Cognition (Neuro): normal cognition Extrem General: Yes full ROM, Yes no pedal edema and Yes no calf tenderness Psych Mental Status: mental status grossly normal Affect: normal affect Thought process: Normal thought process present Medical Decision Making Medical Decision Making [facility] Narrative: 59-year-old female with PMHx of chronic UTI, HLD, fibromyalgia, anxiety, depression, asthma, GERD presents to the emergency department today with 2 days of left lower quadrant pain radiating to left flank. VSS stable, in no acute distress, nontoxic appearing. Labs unremarkable. UA shows 1+ leukocytes, 1+ blood, 11-20 rbc's, with 11-20 squamous epithelial cells indicating a contaminated catch, and not acute UTI. Abdomen soft, diffusely tender, no peritoneal signs, no rigidity, no distention, no guarding, negative Lakhani's sign, no rebound tenderness, no CVA tenderness, and mild LLQ TTP. No lumbar paraspinal TTP. CT notable for coliits. Patient is afebrile, well- appearing, no leukocytosis, not having diarrhea, will defer treatment with antibiotics at this time. Case discussed with attending MD, Dr. Nunez, who is in agreement that patient does not require antibiotics at this time. Will refer to GI for further management. Return precautions discussed. Patient verbalized understanding of and agreement with plan. Differential Diagnosis Differential Diagnoses: The differential diagnosis associated with the presentation includes Diverticulitis Diverticulosis Gastritis Renal calculi UTI Admission/Observation Consideration of admission/observation: Escalation of care including admission/observation considered Lab Data [facility] Lab Attestation statement: I reviewed the patient's lab results. 01/27/25 09:24 01/27/25 09:24 Labs: Lab Results 01/27/25 Range/Units 09:24 WBC 7.7 (4.8-10.8) X10*3/uL RBC 3.86 L (4.20-5.50) X10*6/uL Hgb 11.6 L (12.0-16.0) g/dl Hct 35.2 L (37.0-47.0) % MCV 91.2 (80.0-98.0) fL MCH 30.1 (27.0-33.0) pg MCHC 33.0 (31.0-35.0) g/dl RDW 13.1 (11.0-16.0) % Plt Count 280 (160-400) X10*3/uL MPV 8.7 L (9.4-12.3) fL Immature Gran % (Auto) 0.3 (0.0-0.4) % Neut % (Auto) 54.8 (45-73) % Lymph % (Auto) 34.1 (20-40) % [place] % (Auto) 9.6 (2-11) % Eos % (Auto) 0.8 (0-4) % Baso % (Auto) 0.4 (0-2) % Lymph # (Auto) 2.6 (1.2-4.9) X10*3/uL [place] # (Auto) 0.7 (0.1-1.2) X10*3/uL Eos # (Auto) 0.1 (0.0-0.4) X10*3/uL Baso # (Auto) 0.0 (0.0-0.2) X10*3/uL Abs Immat Gran (auto) 0.02 (0.00-0.03) X10*3/uL Absolute Neuts (auto) 4.2 (2.0-8.3) x10*3/uL Absolute Nucleated RBC 0.000 (0.0-0.012) X10*3/uL Nucleated RBC % (auto) 0.0 (0.0-0.2) /100WBC Sodium 143 (135-145) mmol/L Potassium 4.0 (3.3-5.1) mmol/L Chloride 107 (96-108) mmol/L Carbon Dioxide 30 H (22-29) mmol/L Anion Gap 10 L (12-20) BUN 12 (9-16) mg/dL Creatinine 0.73 (0.5-1.4) mg/dL Estim Creat Clear Calc 65.6 Estimated GFR > 60 Random Glucose 112 (60-115) mg/dL Calcium 8.9 (8.4-10.2) mg/dL Urine Color Yellow Urine Appearance Clear Urine pH 7.5 (5.0-9.0) Ur Specific [place] 1.025 (1.005-1.025) Urine Protein Trace (Neg-Trace) mg/dL Urine Glucose (UA) Negative (Negative) mg/dL Urine Ketones Trace (Negative) mg/dL Urine Blood Small (1+) H (Negative) Urine Nitrite Negative (Negative) Ur Leukocyte Esterase Small (1+) H (Negative) Urine RBC 11-20 H (0-2) /HPF Urine WBC 6-10 H (0-5) /HPF Ur Squamous Epith Cells 11-20 (0-2) /HPF Urine Bacteria Trace (None Seen) Hyaline Casts 0-2 (0-2) /LPF Independent Interpretation I performed an independent interpretation of an: CT Scan External Record Review External record reviewed: Inpatient record, Office record and Outpatient record Chronic Conditions Patient?s care impacted by: Other (Chronic UTI) Discharge Plan Discharge Clinical Impression: Colitis Patient Disposition: Home, Self-Care Instructions: Colitis (ED) Additional Instructions: You were evaluated in the emergency department today for abdominal pain. Your CT scan shows evidence of colitis which is an inflammation of your colon. We recommend that you follow-up with the therapeutic program worker for further evaluation and management of your symptoms. You should follow up with your primary care provider as well. Return to the emergency department if you develop fever, blood in your stool or black, tarry stool, severe pain, persistent vomiting or any other new or concerning symptoms. Prescriptions: No Action tizanidine 2 mg tablet 2 mg PO BID PRN (Reason: muscle spasticity) Qty: 60 0RF Rx Instructions: Do not take with other CONSTRUCTION AREA MANAGER depressants, may cause drowsiness. No driving while taking this medication. lansoprazole 30 mg capsule,delayed release(DR/EC) 30 mg PO BID Qty: 180 2RF clonazepam 1 mg tablet 1 tab PO DAILY PRN (Reason: Anxiety) zolpidem 10 mg tablet 1 tab PO BEDTIME PRN (Reason: Insomnia) albuterol sulfate 90 mcg/actuation HFA aerosol inhaler 2 puff PO Q4-6H PRN (Reason: Shortness Of Breath) buspirone 5 mg tablet 5 mg PO TID docusate sodium 100 mg capsule 100 mg PO BID PRN (Reason: Constipation) fluticasone propionate [Flovent HFA] 110 mcg/actuation HFA aerosol inhaler 1 puff inhalation BID loratadine 10 mg tablet 10 mg PO DAILY escitalopram oxalate 10 mg tablet 10 mg PO DAILY fluticasone propionate 50 mcg/actuation spray,suspension 1 spray intranasal DAILY diclofenac sodium 1 % gel 1 ea topical BID acetaminophen 650 mg tablet extended release 650 mg PO Q6H PRN (Reason: Pain) Arnuity Ellipta 100 mcg/actuation blister with device 1 inh inhalation DAILY atorvastatin 40 mg tablet 40 mg PO DAILY ydlegkzcrs-dvqvsgpmjfxqq-xtln 50-325-40 mg tablet PO baclofen 10 mg tablet 10 mg PO TID oxycodone-acetaminophen [Percocet] 2.5-325 mg tablet 1 tab PO Q8H PRN nitrofurantoin macrocrystal 50 mg capsule 50 mg PO .COMPLEX Qty: 30 2RF Rx Instructions: 50 mg orally use after sexual activity; must administer with a meal/food cranberry extract 425 mg capsule 425 mg PO BID Qty: 60 10RF Rx Instructions: administer with meals estradiol [Vagifem] 10 mcg tablet 10 mcg vaginal 2XW Qty: 24 3RF Rx Instructions: use 2 times a week at bedtime, Mon/Thurs cholecalciferol (vitamin D3) 50 mcg (2,000 unit) capsule 50 mcg PO DAILY Referrals: [facility] Gastroenterology [facility] [Provider Group] - 1 week (LLQ abd pain, colitis) Print Language: Turkmen
[2025-01-27 12:32] VITALS: BP 122/76; PULSE 99; RESP 18; TEMP 37.1; O2SAT 98
== END 2025-01-27 12:32 | disposition home or self-care (01) ==
PROVIDERS: Emergency Provider Emergency Medicine Emergency Medical Services; PCP Family Medicine
DX: K52.9 Noninfective gastroenteritis and colitis, unspecified (principal); R10.2 Pelvic and perineal pain; Z79.899 Other long term (current) drug therapy
CPT/HCPCS: 36415; 74176; 80048; 81001; 85025; 87086; 87147; 99282; 99284

== ENCOUNTER → 2025-01-27 10:08 | Outpatient (BNV) | payer OTHER, SELFPAY | PROVIDERS: Emergency Provider Emergency Medicine Emergency Medical Services; PCP Family Medicine; Visit Provider Radiology Diagnostic Radiology | DX: K51.90 Ulcerative colitis, unspecified, without complications (principal) | CPT/HCPCS: 74176 ==

== ENCOUNTER 2025-02-27 09:48 | Outpatient (AMB) | payer OTHER, SELFPAY ==
--- NOTE | 2025-02-27 09:50 | A.OFFVIS_ITS ---
Vital Signs 02/27/25 09:51 Height 4 ft 11 in Weight 132 lb 4.438 oz BMI 26.7 BP 135/85 Blood Pressure Location Lt brachial Position Sitting Pulse 68 Intake Visit Reasons: 6 month follow up Intake Note: Miryam presents as a 6 month follow up. CC: Patients states she has issues with her stomach - was seen at urgent care and has ultrasound today. Research Associate Molecular Biology Required: No Allergies Iodinated Contrast Media [CONTRAST, IV] Allergy (Intermediate, Verified 01/27/25 09:16) HIVES iopromide [From ULTRAVIST] Allergy (Intermediate, Verified 01/27/25 09:16) HIVES ibuprofen [From MOTRIN] Adverse Reaction (Intermediate, Verified 01/27/25 09:16) NAUSEA & VOMITING HPI HPI 6 month follow up: Details: 58 y/o f w/ fibromyalgia and cholecystectomy being seen for f/u RECAP-index visit 12/2018 she has had microhematuria and abdo pain and had CT scan 07/2019 which revealed polycystic liver, thickend bladder and GB polyps. Follow up liver u/s with similar findings of RUQ. She had been c/o ongoing epigastric/LUQ pain, which is like burning, worse with food geovanni fried foods, variable intensity. she also had nausea but no vomiting. appetite is variable, weight is up per her stools are normal as long as she takes laxative for last 4 yrs she had EGD and colonoscopy at [facility] 2 yrs ago and she said she was told normal depression is variable sister with myeloma, brother from OD. she had lap leann 12/2018 referred for genetics assessment to [facility] but couldn;t afford testing she also came to see Jaqueline amin for LUQ pain whilst I was away and given bentyl LUQ improved with bentyl constipation better with bisacodyl seeing pain clinic for back pain, awaiting injections she lost her brother and sister to chronic disease --made her go thru depression --has therapist, no SI OTHER TESTS: = EGD 04/2019--gastritis and reflux damage to esophagus US 05/2020--renal cysts, no masses, F2 liver elastography h pylori breath--neg 06/2020 EGD: 2019---possible gastroparesis and gastritis Path: mild gastritis GES 02/2021-- fast emptying at 2 hrs 14% only RAST--negative US duplex: 08/06--possible MALs due to elevated velocity CT chest 08/06- small pulm nodules (w/o contrast) CTA- neg for MALS EGD: 08/06- mild esophagitis and mild gastritis =path: mild gastric and GEJ inflammation [place]- EGD- 09/06- Endoscopy Findings: esophagitis Colonoscopy Findings: colon polyps x 3 internal hemorrhoids polyp in right side, pedunculated Note PATH: TA and SS polyps, focal colitis active esophagitis INTERIM: mostly urine issues with hematuria, seeing urology has US today arranged by urology she has LLQ pain and goes into the lower back she cant eat spicy food, makes pain worse as does certain foods like eggs occ loose stools no blood in stools no n/v EXAM: GENERAL: The patient is well developed and nontoxic. VITAL SIGNS:see workflow HEENT: Nonicteric sclerae, PERRLA, EOMI. Oropharynx clear. Moist mucous membranes. Conjunctivae appear well perfused. No thyroid mass. CHEST: Chest wall is nontender. HEART: Regular rate and rhythm without murmurs. LUNGS: Clear to auscultation bilaterally. ABDOMEN: Soft, positive bowel sounds, nontender, no organomegaly.no flank tenderness SKIN: No rash, no excessive bruising, petechiae, or purpura. NEUROLOGIC: Cranial nerves II-XII intact without motor/sensory deficit. Psych: normal affect Assessments 1/ Polyps- TA and SSA 2/ LLQ pain, colitis on path before PLAN: 1/ repeat colon in about 1-2 yrs 2/ fecal lactoferrin 3/ RAST testing [facility] Medical History Hyperlipidemia Non-toxic multinodular goiter Fibromyalgia Arthritis History of fibromyalgia History of anxiety History of headache Depression Lab test positive for detection of COVID-19 virus Asthma GERD (gastroesophageal reflux disease) Arthropathy of 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 Mother History of heart attack Social History Household Members: None Housing: Apartment Alcohol intake: never Patient Tobacco Use Status: Never used Tobacco Physical Exam Vital Signs: Last Vital Signs Pulse 68 02/27/25 09:51 BP 135/85 02/27/25 09:51 BMI result Body Mass Index 26.7 Assessment & Plan Assessment & Plan (1) LUQ abdominal pain: Code(s): R10.12 - Left upper quadrant pain Category: Medical Plan: as above Orders: Orders Lactoferrin, Fecal, Quant. Today K51.50 - Left sided colitis without compl ications Rast Allergen Today Z91.018 - Allergy to other foods Medications: New mesalamine ER (Apriso) 1.5 grams (4 x 0.375 gram) PO QAM 120 caps 1RF Coding Level of Care Code Est Pt Level 3 (57254) Diagnoses LUQ abdominal pain R10.12
[2025-02-27 09:51] VITALS: BP 135/85; PULSE 68; BMI 26.7
--- OUTSIDE RECORDS SUMMARY | 2025-02-27 10:46 | XMS_ITS | Encounter Summary ---
Author Organization [employer] Address [address] [place] [address] Care Team Providers Care Bilingual Recruiter Name Role Phone Sarah Verduzco DO Primary Care Provider [phone] Encounter Details Date Type Department Care Team (Late st Contact Info) Description 07/27/[address] [facility] MEDICINE [address], [place] [phone] Sarah Verduzco DO [address], [place] [phone] Social History Tobacco Use Types Packs/Day Years Used Date Smoking Tobacco: Never Smokeless Tobacco: Never Alcohol Use Standard Drinks/Week Comments Never 0 (1 standard drink = 0.6 oz pur e alcohol) Depression Answer Date Recorded Patient Health Questionnaire-9 Score 24 05/19/2023 Housing Stability Answer Date Recorded What is your housing situation today? I have daveshorty king 06/29/[address] you [...] Care Team (Late st Contact Info) Description 03/07/2025 9:45 AM EDT Office Visit [facility] MEDICINE [address] [place] [address] 07/28/2025 11:00 AM EST Office Visit [facility] OPTOMETRY [address] [place] [address] Fantasma, Cindy, OD [address] [place] [address] documented as of this encounter Visit Diagnoses Not on filedocumented in this encounter Additional Health Concerns Assessment Noted Time PHQ-9 Depression Total Score: 24 023 8:54 AM EDT documented as of this encounter Care Teams Bilingual Recruiter Relationship Specialty Start Date End Date Sarah Verduzco DO [address] [place] [address] PCP - General Family Medicine 11/21/15 documented as of this encounter
== END 2025-02-27 10:08 | disposition home or self-care (01) ==
LOC: HO.HGI 09:49
PROVIDERS: PCP Family Medicine; Visit Provider Internal Medicine Gastroenterology
DX: R10.12 Left upper quadrant pain (principal)
CPT/HCPCS: 99213

== ENCOUNTER 2025-02-27 10:26 | Outpatient (REF) | payer OTHER, SELFPAY ==
--- NOTE | ~2025-02-27 | US_ITS ---
EXAMINATION: US RETROPERITONEAL COMPLETE (RENAL) CLINICAL INFORMATION: Interval tract infection.. COMPARISON: April 28, 2023. TECHNIQUE: Real-time imaging of the kidneys and bladder. FINDINGS: RIGHT KIDNEY: 8 x 6 x 4 cm (SAG x AP x TRV). Volume: 84 cc. Normal echotexture. Normal renal cortical thickness. No hydronephrosis. 0.7 cm exophytic anechoic lesion in the upper pole. No septations or nodular component.. LEFT KIDNEY: 10 x 6 x 5 cm (SAG x AP x TRV). Volume: 169 cc. Normal echotexture. Normal renal cortical thickness. No hydronephrosis. There is a 0.9 cm exophytic anechoic lesion in the lower pole without septations or nodular components. BLADDER: Fluid-filled. Bilateral ureteral jets are demonstrated. Prevoid bladder volume is 513 mL. Postvoid bladder volume is 25 mL. US/US retroperitoneal comp IMPRESSION: 25 cc urinary retention in a post void image. No hydronephrosis. Bilateral simple renal cysts.. Electronically signed by: Neeraj Nieves MD 02/27/2025 11:04 AM EDT
[2025-02-27 12:07] LABS: Blood Urea Nitrogen 12 mg/dL (9-16); Estimated Glomerular Filt Rate > 60
[2025-02-28 21:49] LABS: Class Almond 0; Class Brazil Nut 0; Class Cashew 0; Class Codfish 0; Class Cow's Milk 0; Class Egg white 0; Class Hazelnut 0; Class Macadamia Nut 0; Class Peanut 0; Class Salmon 0; Class Scallop 0; Class Sesame Seed 0; Class Shrimp 0; Class Soybean 0; Class Tuna 0; Class Walnut 0; Class Wheat 0; F001-IgE Egg White <0.10 kU/L; F002-IgE Milk <0.10 kU/L; F003-IgE Codfish <0.10 kU/L; F004-IgE Wheat <0.10 kU/L; F010-IgE Sesame Seed <0.10 kU/L; F013-IgE Peanut <0.10 kU/L; F014-IgE Soybean <0.10 kU/L; F017-IgE Hazelnut (Filbert) <0.10 kU/L; F018-IgE Brazil Nut <0.10 kU/L; F020-IgE Almond <0.10 kU/L; F024-IgE Shrimp <0.10 kU/L; F040-IgE Tuna <0.10 kU/L; F041 IgE Salmon <0.10 kU/L; F202-IgE Cashew Nut <0.10 kU/L; F256-IgE Walnut <0.10 kU/L; F338-IgE Scallop <0.10 kU/L; F345-IgE Macadmia Nut <0.10 kU/L
== END 2025-02-27 10:27 | disposition home or self-care (01) ==
LOC: HO.US 10:26
PROVIDERS: Internal Medicine Gastroenterology; PCP Family Medicine; Visit Provider Urology
DX: N28.1 Cyst of kidney, acquired (principal); R10.31 Right lower quadrant pain; D64.9 Anemia, unspecified; K21.9 Gastro-esophageal reflux disease without esophagitis; R10.12 Left upper quadrant pain; Z91.018 Allergy to other foods; N39.0 Urinary tract infection, site not specified
CPT/HCPCS: 36415; 76770; 82565; 84520; 86003; 99212

== ENCOUNTER → 2025-02-27 10:29 | Outpatient (BNV) | payer OTHER, SELFPAY | PROVIDERS: PCP Family Medicine; Visit Provider Radiology Diagnostic Radiology | DX: R33.9 Retention of urine, unspecified (principal); N28.1 Cyst of kidney, acquired | CPT/HCPCS: 76770 ==

== ENCOUNTER 2025-03-13 08:32 | Outpatient (AMB) | payer OTHER, SELFPAY ==
--- NOTE | 2025-03-13 08:32 | A.OFFVIS_ITS ---
Intake Visit Reasons: 10w/US Intake Note: Patient presents today via telehealth for 10w/US * Renal US 02/27 Urology Meds- Cranberry Extract, Nitro & Estradiol Allergies to Antibiotic- No Known Allergies Blood Thinner- None Earth Sciences Professor Required: No Accompanied by: Self / Same As Patient Allergies Iodinated Contrast Media (CONTRAST, IV) Allergy (Intermediate, Verified 04/28/25 10:06) HIVES iopromide (From ULTRAVIST) Allergy (Intermediate, Verified 04/28/25 10:06) HIVES ibuprofen (From MOTRIN) Adverse Reaction (Intermediate, Verified 04/28/25 10:06) NAUSEA & VOMITING Medication List - Last Reconciled 03/13/25 by Chela Almaguer MD acetaminophen ER 650 mg PO Q6H PRN albuterol sulfate 90 mcg/actuation 2 puffs PO Q4-6H PRN atorvastatin 40 mg PO DAILY baclofen 10 mg PO TID buspirone 5 mg PO TID lrgfrplipn-skoqhiztjvjqw-ngof 50-325-40 mg tabs PO cholecalciferol (vitamin D3) 50 mcg PO DAILY clonazepam mg PO cranberry extract 425 mg PO BID diclofenac sodium 1% 1 ea topical BID docusate sodium 100 mg PO BID PRN escitalopram oxalate 5 mg PO DAILY estradiol (Vagifem) 10 mcg vaginal 2XW fluticasone furoate 100 mcg/actuation (Arnuity Ellipta) 1 inh inhalation DAILY fluticasone propionate 110 mcg/actuation (Flovent HFA) 1 puff inhalation BID fluticasone propionate 50 mcg/actuation 1 spray intranasal DAILY lansoprazole 30 mg PO BID loratadine 10 mg PO DAILY mesalamine ER (Apriso) 1.5 grams (4 x 0.375 gram) PO QAM nitrofurantoin macrocrystal 50 mg orally use after sexual activity; must administer with a meal/food oxycodone-acetaminophen 5-325 mg 1 tab PO QID PRN tizanidine 2 mg PO BID PRN zolpidem 1 tab PO BEDTIME PRN HPI Comments Details: 03/13/25--Telehealth FU-Recurrent UTI's. Reviewed renal US -02/27/25--Bilateral renal cysts, no urolithiasis. LV--01/03/25--59-year-old female presenting with a follow-up for recurrent urinary tract infections. She has a history of recurrent UTIs, the latest occurring in September of this year, currently without dysuria or burning. She continues to use vaginal estrogen Vagifem and cranberry supplements to reduce UTI risk, and takes nitrofurantoin post-coitus. She reports right lower quadrant discomfort. The patient recently underwent an abdominal ultrasound indicating a possible hernia and A CAT scan to determine the necessity for surgery, (followed by Gen Surgery) Additionally, the patient states she is concerned about redness and swelling in her eye post-retinal detachment surgery, suspecting allergies, and is considering further consultation with her eye doctor. Urinary Symptoms Review - Recurrent urinary tract infections, last in September - No current dysuria or burning sensation - Use of vaginal estrogen and cranberry supplements for prevention - Use of nitrofurantoin post-coitus Plan FU in one year. 01/07/24--Miryam is a 57-year-old female who presents today to the office for a follow-up. She is followed for recurrent UTIs. She is prescribed Vagifem and I have discussed antibiotic prophylaxis with sexual activity. Discussed and prescribed cranberry supplements. She states she has been doing well she has not had a recent UTI. She states that she has chronic back pain and recently had an injection but she is still feeling pain. Urinalysis- persistent microscopic hematuria no signs of infection. In review of chart renal ultrasound 04/28/23-kidneys within normal limits. Plan discussed continue Vagifem, cranberry supplements, nitrofurantoin 50 mg after intercourse. 10/08/2023--Miryam has had recurrent UTIs she has been prescribed Vagifem vazquez ppositories and antibiotic prophylaxis with sexual activity and cranberry supplements also discussed. She states she did not get the low dose nitrofurantoin once she completed the previous abx treatment for prior UTI. The patient states that she has been using the vagifem suppositories She has chronic back pain, states recent back injection. Urinalysis nitrite positive leukocytes trace blood 3+. Plan--Prescribed Ceftin 500 mg BID for 7 days. Ordered Nitrofurantoin 50 mg to use after the intercourse for antibiotic prophylaxis. Canberry supplements. Cont vagifem as directed. 01/19/23 for office cystoscopy.--findings-- Mild bladder wall thickening. Pelvic exam was notable for vaginal atrophy. [facility] Medical History Hyperlipidemia Non-toxic multinodular goiter Fibromyalgia Arthritis History of fibromyalgia History of anxiety History of headache Depression Lab test positive for detection of COVID-19 virus Asthma GERD (gastroesophageal reflux disease) Arthropathy of 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 Mother History of heart attack Social History Household Members: None Housing: Apartment Alcohol intake: never Patient Tobacco Use Status: Never used Tobacco Telehealth Telehealth Telehealth Platform: Telephone Location of provider rendering services: practice address Location of patient: address on file Patient Identification confirmed using: Name, : Yes Telehealth method: voice only Patient verbally consented to treatment: Yes Patient verbally consented to billing insurance company: Yes Patient informed of any privacy concerns related to visit: Yes Minutes spent on Phone/Video with Pt.: 13 Results Reviewed Results Reviewed: Date of Service: 02/27/25 US RETROPERITONEAL COMPLETE (RENAL) CLINICAL INFORMATION: Interval tract infection.. COMPARISON: April 28, 2023. TECHNIQUE: Real-time imaging of the kidneys and bladder. FINDINGS: RIGHT KIDNEY: 8 x 6 x 4 cm (SAG x AP x TRV). Volume: 84 cc. Normal echotexture. Normal renal cortical thickness. No hydronephrosis. 0.7 cm exophytic anechoic lesion in the upper pole. No septations or nodular component.. LEFT KIDNEY: 10 x 6 x 5 cm (SAG x AP x TRV). Volume: 169 cc. Normal echotexture. Normal renal cortical thickness. No hydronephrosis. There is a 0.9 cm exophytic anechoic lesion in the lower pole without septations or nodular components. BLADDER: Fluid-filled. Bilateral ureteral jets are demonstrated. Prevoid bladder volume is 513 mL. Postvoid bladder volume is 25 mL. IMPRESSION: 25 cc urinary retention in a post void image. No hydronephrosis. Bilateral simple renal cysts.. Date of Service: 04/28/23 EXAMINATION: US RETROPERITONEAL COMPLETE (RENAL) CLINICAL INFORMATION: Acute low back pain, urinary frequency, history of kidney stones. COMPARISON: Ultrasound kidneys and bladder 12/25/2022. CT abdomen and pelvis 11/18/2021. Ultrasound abdomen complete 06/12/2020. X-ray abdomen 10/24/2019. TECHNIQUE: Real-time imaging of the kidneys and bladder. FINDINGS: RIGHT KIDNEY: 9.1 x 3.9 x 5.8 cm (SAG x AP x TRV). The kidney is normal in size, contour, and echogenicity. Renal cortical thickness is normal. No renal calculi or hydronephrosis. 0.7 x 0.6 x 0.7 cm simple cyst is seen in the upper pole. No follow-up imaging of this finding is recommended. LEFT KIDNEY: 9.2 x 4.7 x 4.9 cm (SAG x AP x TRV). The kidney is normal in size, contour, and echogenicity. Renal cortical thickness is normal. No renal calculi or hydronephrosis. 1.0 x 0.8 x 1.1 cm simple cyst is seen in the lower pole. No follow-up imaging of this finding is recommended. BLADDER: Well distended and normal. Bilateral ureteral jets are demonstrated. Prevoid bladder volume is 282 mL. Postvoid bladder volume is 12 mL. IMPRESSION: 1. No significant finding within the kidneys. No renal calculi. 2. Minimal post void residual. Assessment & Plan Assessment & Plan (1) Recurrent UTI: Code(s): N39.0 - Urinary tract infection, site not specified Category: Medical Plan Plan/Discussion - Continue using vaginal estrogen twice a week. - Take cranberry supplements regularly. - Use nitrofurantoin after sexual intercourse. - Follow-up one year Patient Instructions: The patient had an opportunity to ask questions regarding treatment plan. The patient expressed understanding and agreement with the above treatment plan. The patient is aware they should contact our office by phone for worsening of their current condition or the appearance of new symptoms. Compliance is encour aged with any medications and followup testing that is ordered. It is a privilege to be allowed the opportunity to participate in the urologic care of your patient. If you have any questions or concerns regarding treatment for the above conditions please do not hesitate to contact me. The office telephone contact is [phone]. This note is constructed in part using voice recognition software. While every effort has been made to ensure accuracy product marketing consultant errors may have been included. Yours sincerely, Chela Almaguer MD Coding Level of Care Code Tele Est Pt Level 3 (97742) Diagnoses Recurrent UTI N39.0
== END 2025-03-13 15:13 | disposition home or self-care (01) ==
LOC: HO.HUSH 08:32
PROVIDERS: PCP Family Medicine; Visit Provider Urology
DX: N39.0 Urinary tract infection, site not specified (principal)
CPT/HCPCS: 99213

== ENCOUNTER 2025-04-28 09:36 | Outpatient (AMB) | payer OTHER, SELFPAY ==
--- OUTSIDE RECORDS SUMMARY | 2025-04-28 09:45 | XMS_ITS | Encounter Summary ---
Author Organization [employer] Address [address] [place] [address] Care Team Providers Care Railway Switch Operator Name Role Phone Sarah Verduzco DO Primary Care Provider [phone] Encounter Details Date Type Department Care Team (Late st Contact Info) Description 07/27/2023 Telephone [facility] MEDICINE [address] [place], [place] [phone] Sarah Verduzco DO [address] [place], [place] [phone] Social History Tobacco Use Types Packs/Day Years [...] Care Team (Late st Contact Info) Description 05/09/2025 9:45 AM EDT Office Visit [facility] [address] [place] [address] 07/28/2025 11:00 AM EST Office Visit [facility] OPTOMETRY [address] [place], [place] [phone] Fantasma, Cindy, OD [address] [place] [address] documented as of this encounter Visit Diagnoses Not on filedocumented in this encounter Additional Health Concerns Assessment Noted Time PHQ-9 Depression Total Score: 24 023 8:54 AM EDT documented as of this encounter Care Teams Railway Switch Operator Relationship Specialty Start Date End Date Sarah Verduzco DO [address] [place] [address] PCP - General Family Medicine 11/21/15 documented as of this encounter
--- OUTSIDE RECORDS SUMMARY | 2025-04-28 09:45 | XMS_ITS | Clinical Summary ---
Author Organization [facility] Address [address] [facility] [place] [address] Care Team Providers Care It Project Coordinator Name Role Phone Sarah Verduzco DO Primary Care Provider Aura Kramer MD Unavailable [phone] Mimi Newsome PA-C Unavailable [phone] Kaleb Tripathi PA-C Unavailable [phone] Allergies Active Allergy Reactions Severity Noted Date [...] mouth daily. 0 Active Cholecalciferol (VITAMIN D3) 95883 UNITS Tab Take 1 Tab by mouth [...] infection. 1 Inhaler 5 09/09/2017 Active D3-50 35307 UNITS Cap Take 1 Cap by mouth once a week. 8 Cap 0 07/15/2018 Active Arthritis Pain Relief 650 MG CR tablet TAKE 1 TABLET BY MOUTH EVERY 8 HOURS NEEDED FOR PAIN OR FEVER 0 11/16/2021 Active KEQQFPMFYT-WJHG-VNF FEINE 50-325-40 MG OR TABS (FIORICET, ESGIC) [...] Review of the cervical spine MRI at [place] dated 02/26/2024 shows a solid arthrodesis at [...] the Breast Aunt Arthritis Father RA, DM [place] Mother cause of Diabetes Sister 1 Thyroid [...] season) 2024, 01/04/2021 BMI CHECK/ADVISE 09/14/2024 INFLUENZA (#1) 2025 Care Teams It Project Coordinator Relationship Specialty Start Date End Date Sarah Verduzco DO PCP - General Internal Medicine 02/09/18 Aura Pollock MD [address] [address] Surgeon Neurosurgery 12/09/21 Mimi Newsome PA-C [address] [address] Specialist Neurosurgery 12/09/21 Kaleb Tripathi PA-C [address] [place] [address] [address] [place] [address] Specialist Neurosurgery 12/09/21
--- OUTSIDE RECORDS SUMMARY | 2025-04-28 09:45 | XMS_ITS | Clinical Summary ---
Author Organization [address] [facility] Address [address] [place] [address] Phone Care Team Providers Care Premix Concrete Batcher Name Role Phone Sarah Verduzco Primary Care Provider [phone] Allergies Active Allergy Reactions Criticality Noted Date [...] RELIEF PATCH EX) Sig - Route: Apply topically. Active montelukast (SINGULAIR) 10 mg tablet Take [...] study, she states it was done at [facility] neurology, we called to have it faxed over, it is dated 09/09/2023 and showed normal motor and sensory nerve conduction study. Normal EMG except may suggest mild chronic L5 radiculopathy. She also had lumbar spine MRI 07/02/2024 at [facility], there is no [...] opioids 07/07/2024 Overview (08/04/2024): Dx: Rx: Last [employer] agreement: Tier II (visit every 3 months) [...] Review of the cervical spine MRI at [place] dated 02/26/2024 shows a solid arthrodesis at C6-7. There is increased right-sided disc osteophyte at C5-6 causing foraminal stenosis and a new left [...] her neck yet. Patient has neck pain 7/10, we talked about other conservative treatment options she could try like acupuncture, a few names provided. We reviewed the images of her prior C-spine MRI from [facility] 02/26/2024 that showed [...] LIGATION PROCEDURE: HISTORICAL TUBAL LIGATION CHOLECYSTECTOMY PROCEDURE: FL LAPAROSCOPY SURG CHOLECYSTECTOMY EYE SURGERY PROCEDURE: HISTORICAL [...] Years (1 of 2 - PCV) 1985 Cervical Cancer Screening: P ap Smear 12/27/1987 Zoster Vaccines (1 of 2) 2016 Colorectal Cancer Screening: Colonoscopy 08/24/2022 Medicare Annual Wellness Visit 08/24/2022 Social Influencers of Health Screening 08/24/2022 COVID-19 Vaccine (3 - 2023-2 5 season) 2024 02/01/2021, 01/04/2021 Depression Screening 09/14/2024 Influenza Vaccine (#1) 2025 Cholesterol Screening (Lipid Panel) 05/04/2029 05/04/2024 [...] ID:[id number] Group ID:[id number] Type:Not on file Address: [facility] [address] [address] Care Teams Premix Concrete Batcher Relationship Specialty Start Date End Date Sarah Verduzco DO [address] [place], [place] PCP - General Internal Medicine 02/09/18
--- NOTE | 2025-04-28 09:56 | MHC.OFFVIS ---
Vital Signs 04/28/25 10:06 Height 4 ft 11 in Weight 137 lb BMI 27.7 BP 123/72 Blood Pressure Location Lt brachial Position Sitting Pulse 67 Intake Visit Reasons: hernia Intake Note: Patient is seen in office for follow up visit following hernia. Pt c/o: pain in the abdominal area, at times gets nauseous, reflux Sewer And Drain Technician Required: No Accompanied by: Self / Same As Patient Allergies Iodinated Contrast Media (CONTRAST, IV) Allergy (Intermediate, Verified 04/28/25 10:06) HIVES iopromide (From ULTRAVIST) Allergy (Intermediate, Verified 04/28/25 10:06) HIVES ibuprofen (From MOTRIN) Adverse Reaction (Intermediate, Verified 04/28/25 10:06) NAUSEA & VOMITING Medication List - Last Reconciled 04/28/25 by Hardik Jiang MD acetaminophen ER 650 mg PO Q6H PRN albuterol sulfate 90 mcg/actuation 2 puffs PO Q4-6H PRN atorvastatin 40 mg PO DAILY baclofen 10 mg PO TID buspirone 5 mg PO TID tczryalctw-awqgtqcvfvnhs-pfra 50-325-40 mg tabs PO cholecalciferol (vitamin D3) 50 mcg PO DAILY clonazepam mg PO cranberry extract 425 mg PO BID diclofenac sodium 1% 1 ea topical BID docusate sodium 100 mg PO BID PRN escitalopram oxalate 5 mg PO DAILY estradiol (Vagifem) 10 mcg vaginal 2XW fluticasone furoate 100 mcg/actuation (Arnuity Ellipta) 1 inh inhalation DAILY fluticasone propionate 110 mcg/actuation (Flovent HFA) 1 puff inhalation BID fluticasone propionate 50 mcg/actuation 1 spray intranasal DAILY lansoprazole 30 mg PO BID loratadine 10 mg PO DAILY mesalamine ER (Apriso) 1.5 grams (4 x 0.375 gram) PO QAM 90 days nitrofurantoin macrocrystal 50 mg orally use after sexual activity; must administer with a meal/food oxycodone-acetaminophen 5-325 mg 1 tab PO QID PRN tizanidine 2 mg PO BID PRN zolpidem 1 tab PO BEDTIME PRN HPI Comments Details: 59-year-old female patient returning for follow-up examination and was previously determined not to have abdominal wall hernias based on a CT abdomen and pelvis. Her pain is mainly in the back more to the left side radiating down her legs. She reports that an MRI was requested however has not been scheduled yet. She also reports being tested for food allergies by GI although has not received the results of the tests. She does know milk seems to bother her as well as other dairy products. She denies fever or chills. [facility] Medical History Hyperlipidemia Non-toxic multinodular goiter Fibromyalgia Arthritis History of fibromyalgia History of anxiety History of headache Depression Lab test positive for detection of COVID-19 virus Asthma GERD (gastroesophageal reflux disease) Arthropathy of 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 Mother History of heart attack Social History Household Members: None Housing: Apartment Alcohol intake: never Patient Tobacco Use Status: Never used Tobacco Review of Systems Const All systems reviewed & are unremarkable except as noted in HPI and below Physical Exam Vital Signs: Last Vital Signs Pulse 67 04/28/25 10:06 BP 123/72 04/28/25 10:06 BMI result Body Mass Index 27.7 Const General: no acute distress Nutritional Appearance: well nourished Orientation/consciousness: patient oriented x3 Resp Effort & Inspection: normal respiratory effort GI Inspection: Yes normal to inspection Palpation (GI): Soft to palpation, nontender, no guarding, not rigid, no hernias and no masses General: Yes CVA tenderness Back/Spine/Pelvis Other: Palpable tenderness in the lower lumbar midline spine with radiation of the tenderness into the abdomen. Back: CVA tenderness Neuro General: patient oriented x3 Assessment & Plan Assessment & Plan (1) Sacroiliac joint dysfunction of left side: Code(s): M53.3 - Sacrococcygeal disorders, not elsewhere classified Category: Medical Plan 59-year-old female patient returning to the office for potential hernia although previous evaluation was negative for abdominal wall hernias. Her symptoms appear to be more related to the back for which an MRI was requested previously by her primary physician. No surgical intervention is required at this time from my standpoint. She should follow up PRN. Coding Level of Care Code Est Pt Level 3 (47887) Diagnoses Sacroiliac joint dysfunction of left side M53.3
[2025-04-28 10:06] VITALS: BP 123/72; PULSE 67; BMI 27.7
== END 2025-04-28 10:41 | disposition home or self-care (01) ==
LOC: HO.HGS 09:37
PROVIDERS: PCP Family Medicine; Visit Provider Surgery
DX: M53.3 Sacrococcygeal disorders, not elsewhere classified (principal)
CPT/HCPCS: 99213

== ENCOUNTER → 2025-04-28 09:36 | Outpatient (BNVA) | payer OTHER, SELFPAY | PROVIDERS: PCP Family Medicine; Visit Provider Surgery | DX: M53.3 Sacrococcygeal disorders, not elsewhere classified (principal) | CPT/HCPCS: 99212 ==

== ENCOUNTER 2025-07-17 11:57 | Outpatient (AMB) | payer OTHER, SELFPAY ==
[2025-07-17 12:01] VITALS: BP 143/62; PULSE 65; BMI 26.7
--- NOTE | 2025-07-17 12:01 | MHC.OFFVIS ---
Vital Signs 07/17/25 12:01 Height 4 ft 11 in Weight 132 lb 4.438 oz BMI 26.7 BP 143/62 H Blood Pressure Location Lt brachial Position Sitting Pulse 65 Intake Visit Reasons: 5 month f/u Intake Note: Miryam presents in the office as a 5 month follow up. CC: States that her meds help and she has been regular. Mid Wife Required: No Allergies Iodinated Contrast Media (CONTRAST, IV) Allergy (Intermediate, Verified 04/28/25 10:06) HIVES iopromide (From ULTRAVIST) Allergy (Intermediate, Verified 04/28/25 10:06) HIVES ibuprofen (From MOTRIN) Adverse Reaction (Intermediate, Verified 04/28/25 10:06) NAUSEA & VOMITING HPI HPI 5 month f/u: Details: 59 y/o f w/ fibromyalgia and cholecystectomy being seen for f/u RECAP-index visit 12/2018 she has had microhematuria and abdo pain and had CT scan 07/2019 which revealed polycystic liver, thickend bladder and GB polyps. Follow up liver u/s with similar findings of RUQ. She had been c/o ongoing epigastric/LUQ pain, which is like burning, worse with food geovanni fried foods, variable intensity. she also had nausea but no vomiting. appetite is variable, weight is up per her stools are normal as long as she takes laxative for last 4 yrs she had EGD and colonoscopy at [facility] 2 yrs ago and she said she was told normal depression is variable sister with myeloma, brother from OD. she had lap leann 12/2018 referred for genetics assessment to [facility] but couldn;t afford testing she also came to see Jaqueline amin for LUQ pain whilst I was away and given bentyl LUQ improved with bentyl constipation better with bisacodyl seeing pain clinic for back pain, awaiting injections she lost her brother and sister to chronic disease --made her go thru depression --has therapist, no SI OTHER TESTS: = EGD 04/2019--gastritis and reflux damage to esophagus US 05/2020--renal cysts, no masses, F2 liver elastography h pylori breath--neg 06/2020 EGD: 2019---possible gastroparesis and gastritis Path: mild gastritis GES 02/2021-- fast emptying at 2 hrs 14% only RAST--negative US duplex: 08/06--possible MALs due to elevated velocity CT chest 08/06- small pulm nodules (w/o contrast) CTA- neg for MALS EGD: 08/06- mild esophagitis and mild gastritis =path: mild gastric and GEJ inflammation [place]- EGD- 09/06- Endoscopy Findings: esophagitis Colonoscopy Findings: colon polyps x 3 internal hemorrhoids polyp in right side, pedunculated Note PATH: TA and SS polyps, focal colitis active esophagitis INTERIM: she has back pain she is waiting for MRI of her back she feels generally well she had one non specific episode of mid abd pain, and had to massage, eventually went away appetite is fair to good, denies blood in stool or diarrhea , EXAM: GENERAL: The patient is well developed and nontoxic. VITAL SIGNS:see workflow HEENT: Nonicteric sclerae, PERRLA, EOMI. Oropharynx clear. Moist mucous membranes. Conjunctivae appear well perfused. No thyroid mass. CHEST: Chest wall is nontender. HEART: Regular rate and rhythm without murmurs. LUNGS: Clear to auscultation bilaterally. ABDOMEN: Soft, positive bowel sounds, nontender, no organomegaly.no flank tenderness SKIN: No rash, no excessive bruising, petechiae, or purpura. NEUROLOGIC: Cranial nerves II-XII intact without motor/sensory deficit. Psych: normal affect Assessments 1/ Polyps- TA and SSA 2/ LLQ pain, colitis on path before PLAN: 1/ repeat colon in about 1-2 yrs 2/ fecal lactoferrin--wasnt done alst time, advised to do, if high then mesalamine --if neg then anti spasmodic --abdo is v benign right now [facility] Medical History Hyperlipidemia Non-toxic multinodular goiter Fibromyalgia Arthritis History of fibromyalgia History of anxiety History of headache Depression Lab test positive for detection of COVID-19 virus Asthma GERD (gastroesophageal reflux disease) Arthropathy of 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 Mother History of heart attack Social History Household Members: None Housing: Apartment Alcohol intake: never Patient Tobacco Use Status: Never used Tobacco Physical Exam Vital Signs: Last Vital Signs Pulse 65 07/17/25 12:01 BP 143/62 H 07/17/25 12:01 BMI result Body Mass Index 26.7 Assessment & Plan Assessment & Plan (1) Epigastric abdominal pain: Code(s): R10.13 - Epigastric pain Category: Medical Plan: as above Coding Level of Care Code Est Pt Level 3 (37503) Diagnoses Epigastric abdominal pain R10.13
--- OUTSIDE RECORDS SUMMARY | 2025-07-17 15:12 | XMS_ITS | Clinical Summary ---
Author Organization [employer] Address [address] [facility] 7t [place] [address] Care Team Providers Care Multimedia Journalist Name Role Phone Sarah Verduzco DO Primary Care Provider [phone] Allergies Active Allergy Reactions Criticality Noted Date Comments Egg Protein (Egg White) 06/23/2025 Green Dye 07/06/2020 Other reaction(s): Hives / Skin Rash Ibuprofen Diarrhea 04/19/2018 Other reaction(s): Upset stomach Other reaction(s): Not available Other reaction(s): GI upset Iodinated Contrast Media Hives 12/13/2021 Other reaction(s): Not available Other reaction(s): hives Medications * This document contains information received from the source organization and may not represent a complete record from that organization. zolpidem (Ambien) 10 MG tablet Take 1 [...] in the morning and at bedtime (eye alleriges/itc natasha). 10 mL 1 024 Active Diclofenac Sodium 1 % cream Apply 2 g topically if needed in the morning and at bedtime (pain). 120 g 3 024 Active loratadine (Claritin) 10 MG tablet TAKE 1 TABLET BY MOUTH EVERY DAY 90 tablet 1 024 Active Cranberry Juice Powder 425 MG capsule TAKE ONE (1) CAPSULE BY MOUTH TWICE DAILY WITH MEALS Active baclofen (Lioresal) 10 MG tablet Take 1 tablet (10 mg) by mouth if needed in the morning, at noon, and at bedtime for muscle spasms. 60 tablet 3 024 Active Mometasone Furoate (Asmanex HFA) 100 MCG/ACT aerosol Inhale 1 Act (100 mcg) 2 times daily. 13 g 11 025 Active hydroquinone 4 % creamIndications: Melasma APPLY TO THE AFFECTED AREA(S) TWICE DAILY IN THE MORNING AND AT BEDTIME 28.35 g 5 025 Active nitrofurantoin (Macrodantin) 50 MG capsule TAKE 1 CAPSULE ORALLY USE AFTER SEXUAL ACTIVITY MUST ADMINISTER WITH A MEAL/FOOD 025 Active clonazePAM (KlonoPIN) 0.5 MG tablet 025 Active escitalopram (Lexapro) 5 MG tablet TAKE 1 TABLET BY MOUTH ONCE A DAY TAKE WITH 10MG TAB FOR 15MG TOTAL DOSE 025 Active atorvastatin (Lipitor) 40 MG tabletIndications :Other hyperlipidemia TAKE 1 TABLET BY MOUTH ONCE PER DAY 90 tablet 3 025 Active D3 Super Strength 50 MCG (2000 UT) capsuleIndication s:Vitamin D deficiency TAKE 1 CAPSULE (50 MCG) BY MOUTH ONCE PER DAY. 90 capsule 3 025 Active lidocaine (Xylocaine) 5 % ointmentIndicatio ns:Cervical spondylosis Apply topically if needed in the morning, at noon, and at bedtime (pain). 30 g 3 025 2025 Active capsaicin (Capzasin-HP) 0.1 % creamIndications: Cervical spondylosis Apply thin layer by topical route up to 4 times daily for pain. 45 g 3 025 Active Diclofenac Sodium 1 % gelIndications:Ce rvical spondylosis Apply thin layer by topical route (quantity as directed on package insert) to affected area of pain 3 times daily as needed. 50 g 3 025 Active acetaminophen (Tylenol 8 Hour) 650 MG ER tablet TAKE 1 TABLET BY MOUTH EVERY 8 (EIGHT) HOURS IF NEEDED FOR MILD PAIN. DO NOT CRUSH, CHEW, OR SPLIT. 50 tablet 1 025 Active docusate sodium (Colace) 100 MG capsule TAKE 1 CAPSULE BY MOUTH TWICE A DAY NEEDED 180 capsule 1 025 Active butalbital-acetam inophen-caffeine 50-325-40 MG tabletIndications :Chronic nonintractable headache, unspecified headache type TAKE 1 TABLET BY MOUTH AT ONSET OF HEADACHE, MAY REPEAT AFTER 4 HOURS NEEDED, MAX 2 TABS PER DAY. 20 tablet 1 025 Active oxyCODONE-acetami nophen (Percocet) 5-325 MG tabletIndications :Chronic bilateral low back pain with left-sided sciatica Take 1 tablet by mouth every 6 (six) hours if needed for severe pain for up to 28 days. 112 tablet 025 2024 Active butalbital-acetam inophen-caffeine [...] Active Problems Problem Noted Date Diagnosed Date Long-term current use of opiate analgesic 2024 Overview (03/06/2025): Medication: percocet 5/325mg Q6H PRN Indication: cervical DDD, cervical spondylosis, lumbar spondylosis, fibromyalgia Last [employer] Agreement: 11/07/24 Tier 2 ([employer]QU[employer] MER[employer] visits Q3 months) Assessment & Plan (03/07/2025 2:20 PM EDT): Timeline: - 03/07/25: Group - utox/pill count as expected Chorioretinal scar of right eye 01/25/2025 Age-related nuclear cataract of left eye 025 Lattice degeneration of peripheral retina, left 01/25/2025 Blindness right eye category 4, normal vision le ft eye 01/25/2025 Chronic, continuous use of opioids 07/07/2024 Overview (07/07/2024): Dx: Rx: Last [employer] agreement: Tier II (visit every 3 months) [...] She request prescription to be send to [facility] pharmacy due to not being covered at [facility]. Generalized anxiety disorder 07/02/2023 Assessment & [...] low back pain 12/23/2017 Assessment & Plan (06/23/2025 10:43 AM EDT): Orders: Referral to Neurosurgery; Future Assessment & Plan (12/29/2023 2:43 PM EDT): [...] Review of the cervical spine [facility] dated 02/26/2024 shows a solid arthrodesis at [...] psychiatrist as scheduled -she declines visit w/ clinician today Cervical spondylosis 11/21/2015 Assessment & Plan (03/07/2025 2:19 PM EDT): -Good engagement and participation with Group Medical Visit model -Encouraged multifactorial approach to pain control including pharm and non- pharm modalities -UTOX and Pill count as expected Chronic neck pain 11/21/2015 Assessment & Plan [...] to NS for f/u eval -advised contact [facility] if sx worsen Resolved Problems Problem [...] She requests prescriptions to be sent to [facility] pharmacy due to not being covered at [facility] Fibromyositis 11/21/2015 01/27/2023 Overweight (BMI 25.0-29.9) 11/21/2015 0 01/27/2023 Encounters Date Type Department Care Team Description 06/27/2025 Refill [facility] MEDICINE [address] [place] [address] Sarah Verduzco DO Chronic bilateral low back pain with left-sided sciatica 06/27/2025 Refill [facility] MEDICINE [address] [place] [address] Sarah Verduzco DO Chronic nonintractable headache, unspecified headache type 06/23/2025 9:45 AM EDT Office Visit [facility] MEDICINE [address] [place] [address] Ben Cabrera, ROBERT Chronic bilateral low back pain with left-sided sciatica (Primary Dx) 06/23/2025 Travel 06/22/2025 Telephone [facility] MEDICINE [address] [place] [address] [place] [address] Ben Cabrera, CONVENTION SERVICES MANAGER Chart Prep 06/22/2025 Telephone [facility] [address] [place] [address] Sarah Verduzco DO Nurse Triage 06/01/2025 Refill [facility] MEDICINE [address] [place] [address] Sarah Verduzco, Chronic nonintractable headache, unspecified headache type 05/29/2025 Refill [facility] [address] [place] [address] Sarah Verduzco DO 05/29/2025 Refill [facility] [address] [place] [address] Sarah Verduzco DO Chronic bilateral low back pain with left-sided sciatica 05/29/2025 Refill [facility] MEDICINE [address] [place] [address] Sarah Verduzco DO Chronic nonintractable headache, unspecified headache type 05/29/2025 Refill [facility] MEDICINE [address] [place] [address] Sarah Verduzco DO 05/12/2025 Refill [facility] [address] [place] [address] Sarah Verduzco DO 05/10/2025 11:30 AM EDT Clinical Support [facility] [place] [address] Lauryn Cunningham RN Long-term current use of opiate analgesic (Primary Dx) 05/10/2025 Telephone [facility] [place] [place] [address] Lauryn Cunningham RN BPI Scoring 05/10/2025 Travel 05/08/2025 Telephone [facility] [place] [place] [address] Sarah Verduzco DO Appointment Request 05/01/2025 Telephone [facility] [address] [place] [address] Sarah Verduzco DO Durable Medical Equipment ([facility] DME Request: Tens Unit) 04/28/2025 Refill [facility] MEDICINE [address] [place] [address] Sarah Verduzco DO 04/27/2025 Refill [facility] MEDICINE [address] [place] [address] Sarah Verduzco, Chronic bilateral low back pain with left-sided sciatica from Last 3 Months Immunizations Immunization Administration Dates Next Due Amandaa Covid-19 Vaccine 12+ 02/01/2021,01/05/20 21 Tdap 12/13/2022,06/10/2022 Social History Tobacco Use Types Packs/Day Years Used Date Smoking Tobacco: Never Passive Smoke Exposure: Never Smokeless Tobacco: Never Tobacco Cessation:Counseling Given: Not Answered Alcohol Use Standard Drinks/Week Comments Never 0 (1 standard drink = 0.6 oz pur e alcohol) Alcohol Answer Date Recorded Frequency of Alcohol Consumption Not on file 07/22/2024 Average Number of Drinks Not on file 024 Frequency of Binge Drinking Not on file 04/2024 Score 0 07/22/2024 Depression Answer Date Recorded Patient Health Questionnaire-9 Score 15 06/23/2025 Patient Health Questionnaire-9 Score 15 06/23/2025 Last PHQ-9: Questionnaire Data Not on file 1 Housing Stability Answer Date Recorded What is [...] Answer Date Recorded Patient Health Questionnaire-2 Score 5 06/23/2025 Internet Access Answer Date Recorded Internet Access [...] Sign Reading Time Taken Comments Blood Pressure 120/86 06/23/2025 9:38 AM EDT Pulse 68 06/23/2025 9:38 AM EDT Temperature 36.4 C (97.6 F) 06/23/2025 9:38 AM EDT Respiratory Rate 20 06/23/2025 9:38 AM EDT Oxygen Saturation 100% 11/14/2024 11:21 AM EST Inhaled Oxygen Concentration - - Weight 61.9 kg (136 lb 6.4 oz) 06/23/2025 9:38 A M EDT Height 149.9 cm (4' 11 ) 06/23/2025 9:38 AM EDT Body Mass Index 27.55 06/23/2025 9:38 AM EDT Plan of Treatment Upcoming Encounters Date Type Department Care Team (Late st Contact Info) Description 07/18/2025 11:30 AM EST Clinical Support [facility] MEDICINE [address] [place] [address] Lauryn Cunningham RN 07/28/2025 11:00 AM EST Office Visit [facility] OPTOMETRY [address] [place] [address] Fantasma, Cindy, OD [address] [place] [address] Health Maintenance Due Date Last Done Comments CT Colonography 1966 FIT DNA/Cologuard 1966 FIT 1966 FOBT 1966 Sigmoidoscopy 1966 Hepatitis B Vaccines (1 of 3 - 19+ 3-dose series) 1985 Pneumococcal Vaccine: 50+ Years (1 of 2 - PCV) 1985 Zoster Vaccines (1 of 2) 2016 COVID-19 Vaccine (3 - season) 2025 02/01/2021, 01/04/2021 Influenza Vaccine (#1) 2025 SDOH Screening 07/22/2025 07/22/2024 Alcohol/Substance Use Screening 11/14/2025 11/14/2024 Depression Monitoring 12/22/2025 06/23/2025, 025 Mammogram 06/22/2026 06/22/2024, 05/16, 06/10/2023, Additional history exists Disability Screening 06/23/2026 06/23/2025 Tobacco Screening 06/23/2026 06/23/2025 Colonoscopy 08/24/2026 08/24/2024, 03/24/2017 Colorectal Cancer Screening 08/24/2026 DTaP/Tdap/Td Vaccines (3 - Td or Tdap) [...] Procedure Name Priority Date/Time Associated Diagnosis Comments AMB REFERRAL TO NEUROSURGERY Urgent 07/07/2025 Chronic bilateral low back pain with left-sided sciatica POCT NEREYDA-14 URINE DRUG SCREEN Routine 05/10/2025 11:46 AM EDT Long-term current use of opiate analgesic HM COLONOSCOPY Routine 08/24/2024 BI MAMMOGRAM SCREENING TOMOSYNTHESIS BILATERAL Routine 06/22/2024 [...] mammogram for malignant neoplasm of breast Melasma from Last 3 Months or Most Recently Relevant to Health Maintenance Results * Referral to Neurosurgery (07/07/2025) Ben Cabrera [facility] OUTPATIENT REFERRAL ORDERABLE S Final Result * POCT NEREYDA-14 Urine Drug Screen (05/10/2025 11:46 AM EDT) THC Negative Negative Cocaine Screen, Urine Negative Negative Opiate Screen, Urine Negative Negative Methamphetamine Screen Urine Negative Negative Amphetamine Screen, Urine Negative Negative Benzodiazepines Screen, Urine Negative Negative Barbiturate Screen, Urine Negative Negative Methadone Screen, Urine Negative Negative Buprenophine Screen, Urine Negative Negative TCA, Urine Negative Negative MDMA Urine Negative Negative ng/mL Oxycodone Screen, Urine Positive Negative Phencyclidine (PCP), Urine Negative Negative Propoxyphene, Urine Negative Negative Fentanyl, Urine Negative Negative Urine Urine specimen obtained by clean catch procedure / Unknown 05/10/2025 11:46 AM EDT Narrative Lauryn Cunningham RN - 05/10/2025 11:46 AM EDT UTOX cup Lot#[id number] Exp. 06/20/26 Internal Pass Control Sarah Verduzco DO POINT OF CARE TEST ENTER/DAVID T ORDERABLES Final Result * Hm Colonoscopy (08/24/2024) Colonoscopy Normal Normal Narrative Jessa Diaz - 08/24/2024 Repeat colonoscopy in about 1-2 years ( see external hospital admission note on 08/24/2024) Historical Provider HEALTH MAINTENANCE Final Result * BI Mammogram Screening Tomosynthesis Bilateral (06/22/2024 9:45 AM EDT) Anatomical Region Laterality Modality Breast Bilateral Mammography 06/22/2024 9:45 AM EDT Narrative 07/04/2024 6:01 PM EDT [facility] [place] [address] Mammography Report Signed Patient: Miryam Fan MR#: [id number] [birth year] : 1965 Acct:[id number] Age/Sex: 58 / F ADM Date: 06/22/24 Loc: HO.MAMMO Attending Dr: Sarah Verduzco DO Ordering Physician: Sarah Verduzco DO Results: 1N egative Date of Service: 06/22/24 Follow Up: 1 Year From Orig ina Mammogram Procedure(s): MM tomosynthesis screening BI Accession Number(s): [id number] cc: Sarah Verduzco DO EXAMINATION: MM SCREENING [...] Valerio DO in OV> 07/04/24 1757 DD/ 4 TD/TT: 06/22/24957 Supervisor Train Operations: Procedure Note Donotuseinterpreter, Image - 07/04/2024 [facility] [address] [place], [place] [address] Mammography Report Signed Patient: Marco Fan#: [id number] [birth year] : 1965Acct:[id number] Age/Sex: 58 / FADM Date: 06/22/24 Loc: HO.MAMMO Attending Dr: Sarah Verduzco DO Ordering Physician: Sarah Verduzco DOResults: 1N egative Date of Service: 06/22/24Follow Up: 1 Year From Orig inal Mammogram Procedure(s): MM tomosynthesis screening BI Accession Number(s): [id number] cc: Sarah Verduzco DO EXAMINATION: MM SCREENING [...] DO Signed By: <Electronically signed by Mone Valeroi DO in OV> 07/04/24 1757 DD/ TD/TT: 06/22/24957 Supervisor Train Operations: Sarah Verduzco DO IMG BI PROCEDURES Edited Res ult - Final * Hepatitis C Antibody with Reflex to HCV, RNA, Quantitative, Real-Time PCR (05/04/2024 12:27 PM EDT) Hepatitis C Antibody Nonreactive Nonreactive [facility] Comment:Antibodies to HCV no t detected; does not exclude early acuteHCV infection. Blood Venous blood specimen / Unknown 05/04/2024 12:27 PM EDT 05/04/2024 1:01 PM EDT Sarah Verduzco DO LAB BLOOD ORDERABLES Final R esult [facility] [address] [place] [phone] * HIV-1/2 Antigen and Antibodies, Fourth Generation, with Reflexes (05/04/2024 12:27 PM EDT) HIV AB/AG Nonreactive Nonreactive [facility] Comment:HIV-1 p24 Ag and/or HIV-1/HIV-2 Ab not detected.A test result that is nonreactive does not exclude thepossibility of exposure to or infection with HIV-1 and/orHIV-2. Nonreactive results in this assay for individualswith prior exposure to HIV-1 and/or HIV-2 may be due toantigen and antibody levels that are below the limit ofdetection of this assay.The [employer] HIV Ag/Ab Combo assay result andsupplemental assay results should be interpreted inconjunction with the patient's clinical presentation,history and other laboratory results. If the results areinconsistent with clinical evidence, additional testing issuggested to confirm the result. Blood Venous blood specimen / Unknown 05/04/2024 12:27 PM EDT 05/04/2024 1:01 PM EDT us Sarah Verduzco DO LAB BLOOD ORDERABLES Final R esult [facility] [address] [place] [address] [phone] from Last 3 Months or Most Recently Relevant to Health Maintenance Insurance [facility] < 65 Care Teams Multimedia Journalist Relationship Specialty Start Date End Date Sarah Verduzco DO [address] [place] [address] PCP - General Family Medicine 11/21/15
--- OUTSIDE RECORDS SUMMARY | 2025-07-17 15:12 | XMS_ITS | Encounter Summary ---
Author Organization [employer] Address [address] [facility] 7t [place] [address] Care Team Providers Care Barrel Bung Remover And Dumper Name Role Phone Sarah Verduzco DO Primary Care Provider [phone] Reason for Visit * Reason Comments Med Refill Encounter Details Date Type Department Care Team ([facility] Contact Info) Description 08/20/2023 Refill [facility] MEDICINE [address] [place], [place] [phone] Sarah Verduzco DO [address] [place], [place] [phone] Chronic neck pain Social History Tobacco Use [...] 11:48 AM EST Referral faxed for GAS PUMP ATTENDANT services to , per provider request. documented in this encounter Plan of Treatment Upcoming Encounters Date Type Department Care Team (Late st Contact Info) Description 07/18/2025 11:30 AM EST Clinical Support [facility] MEDICINE [address] [place] [address] Lauryn Cunningham RN 07/28/2025 11:00 AM EST Office Visit [facility] OPTOMETRY [address] [place], [place] [phone] Cindy Meek, OD [address] [place] [address] documented as of this encounter Visit Diagnoses Diagnosis Chronic neck pain Cervicalgia documented in this encounter Additional Health Concerns Assessment Noted Time PHQ-9 Depression Total Score: 24 023 8:54 AM EDT documented as of this encounter Care Teams Barrel Bung Remover And Dumper Relationship Specialty Start Date End Date Sarah Verduzco DO [address] [place] [address] PCP - General Family Medicine 11/21/15 documented as of this encounter
--- OUTSIDE RECORDS SUMMARY | 2025-07-17 15:12 | XMS_ITS | Encounter Summary ---
Author Organization [employer] Address [address] [facility] [address] [place] [address] Care Team Providers Care Supervisor Extruding Department Name Role Phone Sarah Verduzco DO Primary Care Provider [phone] Reason for Visit * Reason Comments Med Refill Encounter Details Date Type Department Care Team ([facility] Contact Info) Description 01/29/2024 Refill [facility] MEDICINE [address] [place], [place] [phone] Sarah Verduzco DO [address] [place], [place] [phone] Social History Tobacco Use Types Packs/Day Years [...] Description 07/18/2025 11:30 AM EST Clinical Support [facility] MEDICINE [address] [place] [address] Lauryn Cunningham RN 07/28/2025 11:00 AM EST Office Visit [facility] OPTOMETRY [address] [place] [address] Cindy Meek, OD [address] [place] [address] documented as of this encounter Visit Diagnoses Not on filedocumented in this encounter Additional Health Concerns Assessment Noted Time PHQ-9 Depression Total Score: 24 023 8:54 AM EDT documented as of this encounter Care Teams Supervisor Extruding Department Relationship Specialty Start Date End Date Sarah Verduzco DO [address] [place] [address] PCP - General Family Medicine 11/21/15 documented as of this encounter
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
--- OUTSIDE RECORDS SUMMARY | 2025-07-17 15:12 | XMS_ITS | Encounter Summary ---
Author Organization [employer] Address [address] [facility] 7t [place] [address] Care Team Providers Care Road Marker Name Role Phone Sarah Verduzco DO Primary Care Provider [phone] Reason for Visit * Reason Comments Med Refill Encounter Details Date Type Department Care Team ([facility] Contact Info) Description 02/06/2023 Refill [facility] MEDICINE [address] [place] [phone] Sarah Verduzco DO [address] [place] [phone] Chronic GERD Social History Tobacco Use Types [...] Care Team ([facility] Contact Info) Description 07/18/2025 11:30 AM EST Clinical Support [facility] MEDICINE [address] [place] [phone] Lauryn Cunningham, RN 07/28/2025 11:00 AM EST Office Visit [facility] OPTOMETRY [address] [place], [place] [phone] Cindy Meek, OD [address] [place] [address] documented as of this encounter Visit Diagnoses Diagnosis Chronic GERD documented in this encounter Additional Health Concerns Assessment Noted Time PHQ-9 Depression Total Score: 16 023 10:36 AM EDT documented as of this encounter Care Teams Road Marker Relationship Specialty Start Date End Date Sarah Verduzco DO [address] [place] [address] PCP - General Family Medicine 11/21/15 documented as of this encounter
--- OUTSIDE RECORDS SUMMARY | 2025-07-17 15:12 | XMS_ITS | Encounter Summary ---
Author Organization [employer] Address [address] [facility] [address] [place] [address] Care Team Providers Care Nurses Director Name Role Phone Sarah Verduzco DO Primary Care Provider [phone] Encounter Details Date Type Department Care Team ([facility] Contact Info) Description 07/27/2023 Telephone [facility] MEDICINE [address] [place], [place] [phone] Sarah Verduzco DO [address] [place], [place] [phone] Social History Tobacco Use Types Packs/Day Years [...] Description 07/18/2025 11:30 AM EST Clinical Support [facility] MEDICINE [address] [place] [address] Lauryn Cunningham, LUISITO 07/28/2025 11:00 AM EST Office Visit [facility] OPTOMETRY [address] [place] [address] Fantasma, Cindy, OD [address] [place] [address] documented as of this encounter Visit Diagnoses Not on filedocumented in this encounter Additional Health Concerns Assessment Noted Time PHQ-9 Depression Total Score: 24 023 8:54 AM EDT documented as of this encounter Care Teams Nurses Director Relationship Specialty Start Date End Date Sarah Verduzco DO [address] [place] [address] PCP - General Family Medicine 11/21/15 documented as of this encounter
--- OUTSIDE RECORDS SUMMARY | 2025-07-17 15:12 | XMS_ITS | Encounter Summary ---
Author Organization [employer] Address 75 [facility] 7t [place] [address] Care Team Providers Care Ticket Agent Name Role Phone Sarah Verduzco DO Primary Care Provider +1 [phone] Reason for Visit * Reason Comments Med Refill Encounter Details Date Type Department Care Team ([facility] Contact Info) Description 12/29/2024 Refill [facility] MED[facility]INE 230 [place], [place] [phone] Sarah Verduzco DO 230 [place], [place] [phone] Social History Tobacco Use Types Packs/Day Years [...] Description 07/18/2025 11:30 AM EST Clinical Support [facility] 230 [place] [address] Lauryn Cunningham RN 07/28/2025 11:00 AM EST Office Visit [facility] OPTOMETRY [address] [place] [address] Fantasma, Cindy, OD 230 [place] [address] documented as of this encounter Visit Diagnoses Not on filedocumented in this encounter Additional Health Concerns Assessment Noted Time PHQ-9 Depression Total Score: 20 025 11:28 AM EST documented as of this encounter Care Teams Ticket Agent Relationship Specialty Start Date End Date Sarah Verduzco DO 230 [place] [address] PCP - General Family Medicine 11/21/15 documented as of this encounter
--- OUTSIDE RECORDS SUMMARY | 2025-07-17 15:12 | XMS_ITS | Encounter Summary ---
Author Organization [employer] Address 75 [facility] [address] [address] Care Team Providers Care Apricot Washer Name Role Phone Sarah Verduzco DO Primary Care Provider +1- [phone] Reason for Visit * Reason Comments Med Refill Encounter Details Date Type Department Care Team (Late Contact Info) Description 12/04/2022 Refill [facility] MEDICINE 230 [place] [address] Sarah Verduzco DO 230 [place] [address] Social History Tobacco Use Types Packs/Day Years [...] Department Care Team (Late Contact Info) Description 07/18/2025 11:30 AM EST Clinical Support [facility] MEDICINE 230 [place] [address] Lauryn Cunningham, RN 07/28/2025 11:00 AM EST Office Visit [facility] OPTOMETRY [address] [place] [address] Cindy Meek, OD 230 [place] [address] documented as of this encounter Visit Diagnoses Not on filedocumented in this encounter Care Teams Apricot Washer Relationship Specialty Start Date End Date Sarah Verduzco DO 230 [place] [address] PCP - General Family Medicine 11/21/15 documented as of this encounter
--- OUTSIDE RECORDS SUMMARY | 2025-07-17 15:12 | XMS_ITS | Encounter Summary ---
Author Organization [employer] Address 75 [facility] 7t [place] [address] Care Team Providers Care Resume Specialist Name Role Phone Sarah Verduzco DO Primary Care Provider +1 [phone] Reason for Visit * Reason Comments Med Refill Encounter Details Date Type Department Care Team ([facility] Contact Info) Description 09/08/2023 Refill [facility] MEDICINE 230 [place], [place] [phone] Sarah Verduzco DO 230 [place], [place] [phone] Social History Tobacco Use Types Packs/Day Years [...] Description 07/18/2025 11:30 AM EST Clinical Support [facility] MEDICINE 230 [place] [address] Lauryn Cunningham RN 07/28/2025 11:00 AM EST Office Visit [facility] OPTOMETRY [address] [place] [address] Cindy Meek, OD 230 [place] [address] documented as of this encounter Visit Diagnoses Not on filedocumented in this encounter Additional Health Concerns Assessment Noted Time PHQ-9 Depression Total Score: 24 023 8:54 AM EDT documented as of this encounter Care Teams Resume Specialist Relationship Specialty Start Date End Date Sarah Verduzco DO 230 [place] [address] PCP - General Family Medicine 11/21/15 documented as of this encounter
--- OUTSIDE RECORDS SUMMARY | 2025-07-17 15:12 | XMS_ITS | Encounter Summary ---
Author Organization [employer] Address 75 [facility] 7t [place] [address] Care Team Providers Care Tapper Operator Name Role Phone Sarah Verduzco DO Primary Care Provider +1- [phone] Reason for Visit * Reason Comments Med Refill Encounter Details Date Type Department Care Team ([facility] Contact Info) Description 10/21/2022 Refill [facility] MEDICINE 230 [place] [address] Елена Olson MD 230 [place], [place] [phone] Sinusitis, unspecified chronicity, unspecified location Social History [...] Upcoming Encounters Date Type Department Care Team ([facility] Contact Info) Description 07/18/2025 11:30 AM EST Clinical Support [facility] MEDICINE [address] [place] [address] Lauryn Cunningham RN 07/28/2025 11:00 AM EST Office Visit [facility] OPTOMETRY [address] [place], [place] [phone] Cindy Meek, OD 230 [place] [address] documented as of this encounter Visit Diagnoses Diagnosis Sinusitis, unspecified chronicity, unspecified location documented in this encounter Care Teams Tapper Operator Relationship Specialty Start Date End Date Sarah Verduzco DO 230 [place] [address] PCP - General Family Medicine 11/21/15 documented as of this encounter
--- OUTSIDE RECORDS SUMMARY | 2025-07-17 15:12 | XMS_ITS | Encounter Summary ---
Author Organization [employer] Address 75 [facility] [address] [address] Care Team Providers Care X Ray Service Technician Name Role Phone Sarah Verduzco DO Primary Care Provider +1- [phone] Reason for Visit * Reason Comments Med Refill Encounter Details Date Type Department Care Team ([facility] Contact Info) Description 10/21/2022 Telephone [facility] MEDICINE 230 [place], [place] [phone] Sarah Verduzco DO 230 [place], [place] [phone] Med Refill Social History Tobacco Use Types [...] Upcoming Encounters Date Type Department Care Team ([facility] Contact Info) Description 07/18/2025 11:30 AM EST Clinical Support [facility] MEDICINE [address] [place] [address] Lauryn Cunningham, LUISITO 07/28/2025 11:00 AM EST Office Visit [facility] OPTOMETRY [address] [place] [address] Cindy Meek, OD 230 [place] [address] documented as of this encounter Visit Diagnoses Not on filedocumented in this encounter Care Teams X Ray Service Technician Relationship Specialty Start Date End Date Sarah Verduzco DO 230 [place] [address] PCP - General Family Medicine 11/21/15 documented as of this encounter
--- OUTSIDE RECORDS SUMMARY | 2025-07-17 15:12 | XMS_ITS | Encounter Summary ---
Author Organization [employer] Address [address] [facility] 7t [place] [address] Care Team Providers Care Work Force Advisor Name Role Phone Sarah Verduzco DO Primary Care Provider + [phone] Reason for Visit * Reason Comments Med Refill Encounter Details Date Type Department Care Team ([facility] Contact Info) Description 06/20/2023 Refill [facility] MEDICINE 230 [place], [place] [phone] Sarah Verduzco DO 230 [place], [place] [phone] Chronic neck pain Social History Tobacco Use [...] Description 07/18/2025 11:30 AM EST Clinical Support [facility] MEDICINE 230 [place] [address] Lauryn Cunningham RN 07/28/2025 11:00 AM EST Office Visit [facility] OPTOMETRY [address] [place] [address] Fantasma, Cindy, OD 230 [place] [address] documented as of this encounter Visit Diagnoses Diagnosis Chronic neck pain Cervicalgia documented in this encounter Additional Health Concerns Assessment Noted Time PHQ-9 Depression Total Score: 24 023 8:54 AM EDT documented as of this encounter Care Teams Work Force Advisor Relationship Specialty Start Date End Date Sarah Verduzco DO 230 [place] [address] PCP - General Family Medicine 11/21/15 documented as of this encounter
--- OUTSIDE RECORDS SUMMARY | 2025-07-17 15:12 | XMS_ITS | Encounter Summary ---
Author Organization [employer] Address 75 [facility] [address] [place] [address] Care Team Providers Care Mobile Home Servicer Name Role Phone Sarah Verduzco DO Primary Care Provider +1- [phone] Reason for Visit * Reason Onset Date Comments Med Refill 10/20/2022 Encounter Details Date Type Department Care Team (Late Contact Info) Description 10/20/2022 Telephone [facility] MEDICINE 230 [place], [place] [phone] Sarah Verduzco DO 230 [place] [address] Med Refill Social History Tobacco Use Types [...] Description 07/18/2025 11:30 AM EST Clinical Support [facility] MEDICINE 230 [place] [address] Lauryn Cunningham, RN 07/28/2025 11:00 AM EST Office Visit [facility] OPTOMETRY [address] [place] [address] Cindy Meek, OD 230 [place] [address] documented as of this encounter Visit Diagnoses Not on filedocumented in this encounter Care Teams Mobile Home Servicer Relationship Specialty Start Date End Date Sarah Verduzco DO 230 [place] [address] PCP - General Family Medicine 11/21/15 documented as of this encounter
--- OUTSIDE RECORDS SUMMARY | 2025-07-17 15:12 | XMS_ITS | Encounter Summary ---
Author Organization [employer] Address 75 [facility] [address] [place] [address] Care Team Providers Care Para Educator Name Role Phone Sarah Verduzco DO Primary Care Provider +1- [phone] Reason for Visit * Reason Onset Date Comments Med Refill 03/20/2023 Encounter Details Date Type Department Care Team ([facility] st Contact Info) Description 03/20/2023 Telephone [facility] MEDICINE 230 [place], [place] [phone] Sarah Verduzco DO 230 [place], [place] [phone] Med Refill Social History Tobacco Use Types [...] 50 mg tablet to be sent to [facility]/pharmacy #[id number] -[place], [place] - [address] documented in this encounter Plan of Treatment Upcoming Encounters Date Type Department Care Team (Late st Contact Info) Description 07/18/2025 11:30 AM EST Clinical Support [facility] MEDICINE [address] [place] [address] Lauryn Cunningham, RN 07/28/2025 11:00 AM EST Office Visit [facility] OPTOMETRY [address] [place] [address] Cindy Meek, ALBINA 230 [place] [address] documented as of this encounter Visit Diagnoses Not on filedocumented in this encounter Additional Health Concerns Assessment Noted Time PHQ-9 Depression Total Score: 16 023 10:36 AM EDT documented as of this encounter Care Teams Para Educator Relationship Specialty Start Date End Date Sarah Verduzco DO 230 [place] [address] PCP - General Family Medicine 11/21/15 documented as of this encounter
--- OUTSIDE RECORDS SUMMARY | 2025-07-17 15:12 | XMS_ITS | Encounter Summary ---
Author Organization [employer] Address 75 [facility] 7t [place] [address] Care Team Providers Care Small Kick Press Operator Name Role Phone Sarah Verduzco DO Primary Care Provider +1 [phone] Reason for Visit * Reason Comments Med Refill Encounter Details Date Type Department Care Team ([facility] Contact Info) Description 12/06/[address] [facility] MEDICINE 230 [place], [place] [phone] Sarah Verduzco DO 230 [place], [place] [phone] Social History Tobacco Use Types Packs/Day Years [...] 11:30 AM EST Clinical Support [facility] MEDICINE [address] [place] [address] Lauryn Cunningham RN 07/28/2025 11:00 AM EST Office Visit [facility] OPTOMETRY [address] [place] [address] Fantasma, Cindy, OD 230 [place] [address] documented as of this encounter Visit Diagnoses Not on filedocumented in this encounter Additional Health Concerns Assessment Noted Time PHQ-9 Depression Total Score: 20 025 11:28 AM EST documented as of this encounter Care Teams Small Kick Press Operator Relationship Specialty Start Date End Date Sarah Verduzco DO 230 [place] [address] PCP - General Family Medicine 11/21/15 documented as of this encounter
--- OUTSIDE RECORDS SUMMARY | 2025-07-17 15:12 | XMS_ITS | Encounter Summary ---
Author Organization [employer] Address 75 [facility] 7t [place] [address] Care Team Providers Care Health Outreach Worker Name Role Phone Sarah Verduzco DO Primary Care Provider +1- [phone] Reason for Visit * Reason Onset Date Comments Appointment Request 04/04/2024 Encounter Details Date Type Department Care Team ([facility] Contact Info) Description 04/04/2024 Telephone [facility] MEDICINE 230 [place], [place] [phone] Sarah Verduzco DO 230 [place], [place] [phone] Appointment Request Social History Tobacco Use Types [...] Miscellaneous Notes * Telephone Encounter - Martin Dontae - 04/04/2024 11:04 AM EDT Tc from pt requesting to reschedule tomorrows pain management appt 04/05. Please contact pt at [phone]. documented in this encounter Plan of Treatment Upcoming Encounters Date Type Department Care Team (Late st Contact Info) Description 07/18/2025 11:30 AM EST Clinical Support [facility] MEDICINE 230 [place] [address] Lauryn Cunningham, RN 07/28/2025 11:00 AM EST Office Visit [facility] OPTOMETRY [address] [place] [address] Fantasma, Cindy, OD 230 [place] [address] documented as of this encounter Visit Diagnoses Not on filedocumented in this encounter Additional Health Concerns Assessment Noted Time PHQ-9 Depression Total Score: 24 023 8:54 AM EDT documented as of this encounter Care Teams Health Outreach Worker Relationship Specialty Start Date End Date Sarah Verduzco DO 230 [place] [address] PCP - General Family Medicine 11/21/15 documented as of this encounter
--- OUTSIDE RECORDS SUMMARY | 2025-07-17 15:12 | XMS_ITS | Encounter Summary ---
Author Organization [employer] Address [address] [facility] [address] [address] Care Team Providers Care Orange Picking Supervisor Name Role Phone Sarah Verduzco DO Primary Care Provider [phone] Encounter Details Date Type Department Care Team (Late Contact Info) Description 12/24/2022 Orders Only [facility] MEDICINE 230 [place] [address] Sarah Verduzco DO 230 [place] [address] Social History Tobacco Use Types Packs/Day Years [...] Description 07/18/2025 11:30 AM EST Clinical Support [facility] MEDICINE [address] [place] [address] Lauryn Cunningham, RN 07/28/2025 11:00 AM EST Office Visit [facility] OPTOMETRY [address] [place] [address] Cindy Meek, OD 230 [place] [address] documented as of this encounter Visit Diagnoses Not on filedocumented in this encounter Care Teams Orange Picking Supervisor Relationship Specialty Start Date End Date Sarah Verduzco DO [address] [place] [address] PCP - General Family Medicine 11/21/15 documented as of this encounter
--- OUTSIDE RECORDS SUMMARY | 2025-07-17 15:12 | XMS_ITS | Encounter Summary ---
Author Organization [employer] Address [address] [facility] 7t [place] [address] Care Team Providers Care Assault Boat Coxswain Name Role Phone Sarah Verduzco DO Primary Care Provider [phone] Reason for Visit * Reason Comments Med Refill Encounter Details Date Type Department Care Team ([facility] Contact Info) Description 08/21/2024 Refill [facility] MEDICINE 230 [place], [place] [phone] Sarah Verduzco DO 230 [place], [place] [phone] Social History Tobacco Use Types Packs/Day Years [...] Description 07/18/2025 11:30 AM EST Clinical Support [facility] MEDICINE [address] [place] [address] Lauryn Cunningham RN 07/28/2025 11:00 AM EST Office Visit [facility] OPTOMETRY [address] [place] [address] Fantasma, Cindy, OD 230 [place] [address] documented as of this encounter Visit Diagnoses Not on filedocumented in this encounter Additional Health Concerns Assessment Noted Time PHQ-9 Depression Total Score: 11 024 10:42 AM EDT documented as of this encounter Care Teams Assault Boat Coxswain Relationship Specialty Start Date End Date Sarah Verduzco DO 230 [place] [address] PCP - General Family Medicine 11/21/15 documented as of this encounter
--- OUTSIDE RECORDS SUMMARY | 2025-07-17 15:12 | XMS_ITS | Encounter Summary ---
Author Organization [employer] Address [address] [facility] 7t [place] [address] Care Team Providers Care Overlay Plastician Name Role Phone Sarah Verduzco DO Primary Care Provider [phone] [phone] Reason for Visit * Reason Onset Date Comments Nurse Triage 07/20/2023 Encounter Details Date Type Department Care Team ([facility] Contact Info) Description 07/20/2023 Telephone [facility] MEDICINE 230 [place], [place] [phone] Sarah Verduzco DO 230 [place], [place] [phone] Nurse Triage Social History Tobacco Use Types [...] t he electric, gas, oil or water [employer] threatened to shut off services in your [...] juice Pt agrees. Advised to come to [facility] today to be seen [...] accepted this outcome Please contact pt at [phone] documented in this encounter Plan of Treatment Upcoming Encounters Date Type Department Care Team (Late st Contact Info) Description 07/18/2025 11:30 AM EST Clinical Support [facility] MEDICINE 230 [place] [address] Lauryn Cunningham, RN 07/28/2025 11:00 AM EST Office Visit [facility] OPTOMETRY [address] [place] [address] Cindy Meek, ALBINA 230 [place] [address] documented as of this encounter Visit Diagnoses Not on filedocumented in this encounter Additional Health Concerns Assessment Noted Time PHQ-9 Depression Total Score: 24 023 8:54 AM EDT documented as of this encounter Care Teams Overlay Plastician Relationship Specialty Start Date End Date Sarah Verduzco DO [address] [place] [address] PCP - General Family Medicine 11/21/15 documented as of this encounter
--- OUTSIDE RECORDS SUMMARY | 2025-07-17 15:12 | XMS_ITS | Encounter Summary ---
Author Organization [employer] Address 75 [facility] [address] [address] Care Team Providers Care Ordnance Keeper Name Role Phone Sarah Verduzco DO Primary Care Provider [phone]- [phone] Reason for Visit * Reason Comments Med Refill Encounter Details Date Type Department Care Team (Late Contact Info) Description 12/19/2022 Refill [facility] MEDICINE 230 [place] [address] Sarah Verduzco DO 230 [place] [address] Social History Tobacco Use Types Packs/Day Years [...] Description 07/18/2025 11:30 AM EST Clinical Support [facility] MEDICINE [address] [place] [address] Lauryn Cunningham, RN 07/28/2025 11:00 AM EST Office Visit [facility] OPTOMETRY [address] [place] [address] Cindy Meek, OD 230 [place] [address] documented as of this encounter Visit Diagnoses Not on filedocumented in this encounter Care Teams Ordnance Keeper Relationship Specialty Start Date End Date Sarah Verduzco DO 230 [place] [address] PCP - General Family Medicine 11/21/15 documented as of this encounter
--- OUTSIDE RECORDS SUMMARY | 2025-07-17 15:12 | XMS_ITS | Encounter Summary ---
Author Organization [employer] Address 75 [facility] 7t [place] [address] Care Team Providers Care Sports Media Name Role Phone Sarah Verduzco DO Primary Care Provider +1 [phone] Reason for Visit * Reason Comments Med Refill Encounter Details Date Type Department Care Team ([facility] Contact Info) Description 01/05/2024 Refill [facility] MEDICINE 230 [place], [place] [phone] Sarah Verduzco DO 230 [place], [place] [phone] Social History Tobacco Use Types Packs/Day Years [...] 07/18/2025 11:30 AM EST Clinical Support [facility] MEDICINE 230 [place] [address] Lauryn Cunningham RN 07/28/2025 11:00 AM EST Office Visit [facility] OPTOMETRY [address] [place] [address] Cindy Meek, OD 230 [place] [address] documented as of this encounter Visit Diagnoses Not on filedocumented in this encounter Additional Health Concerns Assessment Noted Time PHQ-9 Depression Total Score: 24 023 8:54 AM EDT documented as of this encounter Care Teams Sports Media Relationship Specialty Start Date End Date Sarah Verduzco DO 230 [place] [address] PCP - General Family Medicine 11/21/15 documented as of this encounter
--- OUTSIDE RECORDS SUMMARY | 2025-07-17 15:12 | XMS_ITS | Encounter Summary ---
Author Organization [email or web address] Address 75 [facility] 7t [place] [address] Care Team Providers Care School Health Aide Name Role Phone Sarah Verduzco DO Primary Care Provider [phone] Reason for Visit * Reason Comments Med Refill Encounter Details Date Type Department Care Team ([facility] Contact Info) Description 03/31/2024 Refill [facility] MEDICINE 230 [place], [place] [phone] Sarah Verduzco DO 230 [place], [place] [phone] Social History Tobacco Use Types Packs/Day Years [...] Description 07/18/2025 11:30 AM EST Clinical Support [facility] MEDICINE [address] [place] [address] Lauryn Cunningham RN 07/28/2025 11:00 AM EST Office Visit [facility] OPTOMETRY [address] [place] [address] Cindy Meek, OD 230 [place] [address] documented as of this encounter Visit Diagnoses Not on filedocumented in this encounter Additional Health Concerns Assessment Noted Time PHQ-9 Depression Total Score: 24 023 8:54 AM EDT documented as of this encounter Care Teams School Health Aide Relationship Specialty Start Date End Date Sarah Verduzco DO 230 [place] [address] PCP - General Family Medicine 11/21/15 documented as of this encounter
--- OUTSIDE RECORDS SUMMARY | 2025-07-17 15:13 | XMS_ITS | Encounter Summary ---
Author Organization [employer] Address [address] [facility] 7t [place] [address] Care Team Providers Care Rug Inspector Helper Name Role Phone Sarah Verduzco DO Primary Care Provider +1- [phone] Reason for Visit * Reason Comments Med Refill Encounter Details Date Type Department Care Team ([facility] Contact Info) Description 05/29/2025 Refill [facility] MEDICINE 230 [place], [place] [phone] Sarah Verduzco DO 230 [place], [place] [phone] Social History Tobacco Use Types Packs/Day Years [...] Description 07/18/2025 11:30 AM EST Clinical Support [facility] MEDICINE [address] [place] [address] Lauryn Cunningham RN 07/28/2025 11:00 AM EST Office Visit [facility] OPTOMETRY [address] [place] [address] Fantasma, Cindy, OD 230 [place] [address] documented as of this encounter Visit Diagnoses Not on filedocumented in this encounter Additional Health Concerns Assessment Noted Time PHQ-9 Depression Total Score: 20 025 11:28 AM EST documented as of this encounter Care Teams Rug Inspector Helper Relationship Specialty Start Date End Date Sarah Verduzco DO 230 [place] [address] PCP - General Family Medicine 11/21/15 documented as of this encounter
--- OUTSIDE RECORDS SUMMARY | 2025-07-17 15:13 | XMS_ITS | Encounter Summary ---
Author Organization [employer] Address [address] [facility] 7t [place] [address] Care Team Providers Care Corrosion Control Engineer Name Role Phone Sarah Verduzco DO Primary Care Provider +[phone] Reason for Visit * Reason Onset Date Comments Nurse Triage 11/16/2023 Encounter Details Date Type Department Care Team ([facility] st Contact Info) Description 11/16/[address] [facility] MEDICINE [address] [place], [place] [phone] Sarah Verduzco DO 230 [place], [place] [phone] Nurse Triage Social History Tobacco Use Types [...] the past 12 months, has t he [employer], gas, oil or water [employer] threatened to shut off services in your [...] Pt doesn't wantto go to [facility] . Pt agrees with this plan [...] You become worse * Telephone Encounter - Fazraneh Ybarra - 11/16/2023 10:47 AM EST Symptom: Back Pain - Not From Injury Outcome: Schedule an appointment to be seen within 3 days Reason: Caller denied all higher acuity questions The caller accepted this outcome documented in this encounter Plan of Treatment Upcoming Encounters Date Type Department Care Team (Late st Contact Info) Description 07/18/2025 11:30 AM EST [address] [facility] MEDICINE [address] [place] [address] Lauryn Cunningham RN 07/28/2025 11:00 AM EST Office Visit [facility] OPTOMETRY [address] [place] [address] Cindy Meek, ALBINA 230 [place] [address] documented as of this encounter Visit Diagnoses Not on filedocumented in this encounter Additional Health Concerns Assessment Noted Time PHQ-9 Depression Total Score: 24 023 8:54 AM EDT documented as of this encounter Care Teams Corrosion Control Engineer Relationship Specialty Start Date End Date Sarah Verduzco DO 230 [place] [address] PCP - General Family Medicine 11/21/15 documented as of this encounter
--- OUTSIDE RECORDS SUMMARY | 2025-07-17 15:13 | XMS_ITS | Encounter Summary ---
Author Organization [employer] Address [address] [facility] [address] [place] [address] Care Team Providers Care Technical Assistance Consultant Name Role Phone Sarah Verduzco DO Primary Care Provider + [phone] Encounter Details Date Type Department Care Team ([facility] st Contact Info) Description 12/22/2023 Orders Only [facility] MEDICINE 230 [place], [place] [phone] Provider, MD Tristan Social History Tobacco Use Types Packs/Day Years [...] Description 07/18/2025 11:30 AM EST Clinical Support [facility] [address] [place] [address] Lauryn Cunningham RN 07/28/2025 11:00 AM EST Office Visit [facility] OPTOMETRY [address] [place], [place] [phone] Cindy Meek, OD 230 [place] [address] documented as of this encounter Procedures Procedure [...] documented as of this encounter Care Teams Technical Assistance Consultant Relationship Specialty Start Date End Date Sarah Verduzco DO 230 [place] [address] PCP - General Family Medicine 11/21/15 documented as of this encounter
--- OUTSIDE RECORDS SUMMARY | 2025-07-17 15:13 | XMS_ITS | Encounter Summary ---
Author Organization [employer] Address 75 [facility] 7t [place] [address] Care Team Providers Care Director Construction Services Name Role Phone Sarah Verduzco DO Primary Care Provider [phone] Reason for Visit * Reason Comments Med Refill Encounter Details Date Type Department Care Team ([facility] Contact Info) Description 10/05/2024 Refill [facility] MEDICINE 230 [place], [place] [phone] Sarah Verduzco DO 230 [place], [place] [phone] Social History Tobacco Use Types Packs/Day Years [...] Description 07/18/2025 11:30 AM EST Clinical Support [facility] MEDICINE [address] [place] [address] Lauryn Cunningham RN 07/28/2025 11:00 AM EST Office Visit [facility] OPTOMETRY [address] [place] [address] Fantasma, Cindy, OD 230 [place] [address] documented as of this encounter Visit Diagnoses Not on filedocumented in this encounter Additional Health Concerns Assessment Noted Time PHQ-9 Depression Total Score: 11 024 10:42 AM EDT documented as of this encounter Care Teams Director Construction Services Relationship Specialty Start Date End Date Sarah Verduzco DO 230 [place] [address] PCP - General Family Medicine 11/21/15 documented as of this encounter
--- OUTSIDE RECORDS SUMMARY | 2025-07-17 15:13 | XMS_ITS | Encounter Summary ---
Author Organization [employer] Address 75 [facility] 7t [place] [address] Care Team Providers Care Assistant Professor Of Geography Name Role Phone Sarah Verduzco DO Primary Care Provider [phone]- [phone] Reason for Visit * Reason Comments Med Refill Encounter Details Date Type Department Care Team ([facility] Contact Info) Description 06/01/2025 Refill [facility] MEDICINE 230 [place], [place] [phone] Sarah Verduzco DO 230 [place], [place] [phone] Chronic nonintractable headache, unspecified headache type Social [...] Description 07/18/2025 11:30 AM EST Clinical Support [facility] MEDICINE 230 [place] [address] Lauryn Cunningham RN 07/28/2025 11:00 AM EST Office Visit [facility] OPTOMETRY [address] [place] [address] Fantasma, Cindy, OD 230 [place] [address] documented as of this encounter Visit Diagnoses Diagnosis Chronic nonintractable headache, unspecified headache type documented in this encounter Additional Health Concerns Assessment Noted Time PHQ-9 Depression Total Score: 20 025 11:28 AM EST documented as of this encounter Care Teams Assistant Professor Of Geography Relationship Specialty Start Date End Date Sarah Verduzco DO [address] [place] [address] PCP - General Family Medicine 11/21/15 documented as of this encounter
--- OUTSIDE RECORDS SUMMARY | 2025-07-17 15:13 | XMS_ITS | Data Portability ---
Author Organization [employer] [facility], [employer] [facility] Address [address] [place] [phone] Care Team Providers Care Recovery Operator Helper Name Role Phone [facility] Referring Provider Assessment Encounter Date Assessment Date Assessment LastModified by Organization Details LastModified Time 03/18/2023 03/18/2023 I provided real -time medical direction via phone for this encounter, and was available for additional phone based assistance as needed. I have reviewed and agree with the Assessment and Plan as documented by the Application Integration Architect. Patient given the opportunity to ask questions. Advised if develops CP/severe SOB/turning blue/uncontrolle d pain in flank/ abd or uncontrolled n/v/d or black/bloody emesis or stool/ AMS/ syncope/ hi fever unresponsive to APAP to call 911- advised close f/u with pcp and urology -verbalized understanding of instructions to the medic [email or web address] Not available 03/18/2023 12:04:35 Plan of Treatment Reminders Order Date Submit Date Provider Last Modified By Organization Details Last Modified Time Details Appointments None recorded. Lab rapid SARS CoV 2 Ag, QL IA, respiratory specimen 2023 024 gbaci [facility], [address] [place] [address], [id number] 4 18:19:53 rapid flu (A+B) 2023 024 gbaci [facility], [address] [place] [address], [id number] 4 18:19:51 culture, urine 2022 023 REINALDO [facility] (Centralized Electronic Ordering - All Locations), Patient Can Go To The Location Of Their Choice, [address] 3 15:12:44 urinalysis, dipstick 07/05/ 2023 07/05/2 023 [email or web address] 0 [facility], [address] [place] [address], [id number] 3 17:08:56 rapid SARS CoV 2 Ag, QL IA, respiratory specimen 2022 023 [email or web address] 0 [facility], [address] [place] [address], [id number] 3 12:05:04 rapid flu (A+B) 2022 023 [email or web address] 0 [facility], [address] [place] [address], [id number] 3 12:05:04 Referral None recorded. Procedures None recorded. Surgeries None recorded. Imaging None recorded. Medication Orders Valtrex 1 gram tablet 2023 024 [id number], [address] [place], [address], 4 18:10:29 Bactrim DS 800 mg-160 mg tablet 2022 023 [email or web address] 0 Not available 3 11:58:51 Bactrim DS 800 mg-160 mg tablet 2022 023 [facility] #[id number], [address] [place], [address], 3 12:01:26 Patient TargetsNo targets recorded. Patient [...] Go To The Location Of Their Choice, [address] 03/20/2023 15:12:44 03/18/2003/20/2023 URINE CULTU RE culture [...] ick Leukocytes 3+ Not Available Main - [facility], [address] 03/18/2023 12:05:18 03/18/2003/18/2023 urina lysis , dipst ick Nitrite negati ve Not Available [facility] - [facility] [address] [place] [address], [address] 03/18/2023 12:05:18 03/18/20 23 03/18/2023 urina lysis , dipst ick [facility]robilinogen neg [facility] [address] [place] [address], [address] 03/18/2023 12:05:18 03/18/20 23 03/18/2023 urina lysis , dipst ick Protein trace Not Available Main - [facility] [address], [address] 03/18/2023 12:05:18 03/18/20 23 03/18/2023 urina lysis , dipst ick pH 6 Not Available Main - [facility] [address], [address] 03/18/2023 12:05:18 03/18/20 23 03/18/2023 urina lysis , dipst ick Blood 4+ Not Available Main - [facility] [address], [address] 03/18/2023 12:05:18 03/18/20 23 03/18/2023 urina lysis , dipst ick Specific [place] 1.025 Not Available Main - [facility] [address] [place] [address], [address] [place] [address] 03/18/2023 12:05:18 03/18/20 23 03/18/2023 urina lysis , dipst ick Ketone neg Not Available Main - Ins [address], [address] 03/18/2023 12:05:18 03/18/20 23 03/18/2023 urina lysis , dipst ick Bilirubin trace Not Available Main - [facility] [address] [place] [address], [address] 03/18/2023 12:05:18 03/18/20 23 03/18/2023 urina lysis , dipst ick Glucose neg Not Available Main - Ins [address], [address] 03/18/2023 12:05:18 03/18/20 23 03/18/2023 urina lysis , dipst ick Appearance clear Not Available Main - [facility] [address] [place] [address], [address] 03/18/2023 12:05:18 03/18/20 23 03/18/2023 urina lysis , dipst ick Color light yellow Not Available Main - [facility] [address] [place] [address], [address] 03/18/2023 12:05:18 03/18/20 23 03/18/2023 rapid flu (A+B) Flu negati ve Not Available Main - [facility] [address] [place] [address], [address] 03/18/2023 12:04:44 03/18/20 23 03/18/2023 rapid SARS CoV 2 Ag, QL IA, respi rator y speci men rapid SARS CoV 2 Ag, QL IA, respiratory specimen negati ve Not Available [address], [address] 03/18/2023 12:04:39 11/03/19 24 11/03/2023 rapid flu (A+B) Flu negati ve Not Available [address], [address] 11/03/2023 18:19:38 11/03/19 24 11/03/2023 rapid SARS CoV 2 Ag, QL IA, respi rator y speci men rapid SARS CoV 2 Ag, QL IA, respiratory specimen negati ve Not Available [address], [address] 11/03/2023 18:19:30 Result Notes None recorded. Medical [...] Not available Not available Not available 03/18/2023 [id number] 2003 SNOMED Kristyn Paredes MD [address] [place] [address],[address], [place], [address] [email or web address] [facility] 3 11:50:26 Medications Name Sig Start Date [...] Available No t Available Vitals Date Recorded Heart rate Body height Oxygen saturation Oxygen saturation in Arterial blood by Pulse oximetry Body weight Body temperature Respiratory rate Systolic And Diastolic Provider Name and Address Organization Details Last Updated DateTime 4 67 /min 149.86 cm 96 % 96 % 69054.0 4 g 98.5 [degF] 18 /min 106/74 mm[Hg] Not Available [employer] 4 18:02:40 Date Recorded Body weight Provider Name an d Address Organization Details Last Updated DateTime 03/18/2023 748[address].53 g Sonal Guthrie [address] [place] [address],[address], [place], [address] [employer] 03/18/2023 17:03:15 Date Recorded Body temperature Heart rate Oxygen saturation Oxygen saturation in Arterial blood by Pulse oximetry Respiratory rate Systolic And Diastolic Provider Name and Address Organization Details Last Updated DateTime 3 99.5 [degF] 93 /min 96 % 96 % 18 /min 101/73 mm[Hg] Not Available [employer] 3 11:45:05 Social History None recorded. Functional Status None recorded. Mental Status None recorded. Family History Nothing Reported. Medical History No medical history recorded. Gynecological HistoryNo gynecological history recorded. Obstetrics History GPAL:G 0 P 0 0 0 0 Past Encounters Encounter ID Performer Location Encounter Start Date Encounter Closed Date Diagnosis/Indication Diagnosis SNOMED-CT Code Diagnosis ICD10 Code Diagnosis IMO Codes Diagnosis Note [id number] Kristyn Paredes MD [facility] - [facility] [employer] [address] [place] [phone] 03/18/2023 11:44:55 03/19/2023 10:13:17 Viral upper respiratory tract infection 103372189 J06.9 Advised if has eye s/s - redness/ d/c or visual changes pls call ophthalmol ogy eliazar/ continue claritin and fluticason e daily- Urinary symptoms 1838595 08 R39.9 has recurrent UTI but other [...] GAEL FIELDS MD Main - [facility] [address] [place] [address] 11/03/2023 18:02:26 11/04/2023 12:39:09 Herpes labialis 4151146 B00.1 Evaluation in the field was performed by my longwall headgate operator colleague, as noted above, I provided real-time [...] Mccollum Member ID Guarantor Name 01/17/2024 1 [facility] - DOS ON OR AFTER 2022 - DUAL ELIGIBLE - INTERMEDIATE OPTIONS AND ONE CARE (MEDICARE REPLACEMENT/ADV ANTAGE - HMO) Miryam Fan [id number] M[employer] Notes Date Note Type Note Provider Name and Address Organization Details Recorded Time 03/18/2023 text/html ROS as noted in the HPI HPI: Patient with recent surgical repair of [...] .................. .................. .................. .................. .................. .................. ............... Application Integration Architect Note From Courtney Gomez: Community Application Integration Architect Damaso Gomez CCA1 dispatched to a [facility] for a 57 yof C/O sinus [...] urine appeared abnormal. Urine dip in inst[facility]. [facility] consulted; pt was given 800 mg bactrim PO, and urine sample was brought to [facility] laboratory for culture. She was instructed [...] was given ( no prior visits in [place] ) but has had bactrim in the past without problems. She reports Temp 101 this am took 1 gram Tylenol- no afebrile Kristyn Paredes MD [address] [facility],[address], [place], [address], [employer] 03/18/2023 17:09:19 11/03/2023 text/html ROS as noted in the HPI HPI: Hx GERD, Anxiety, cervical deg. disc disease. .................. .................. .................. .................. .................. .................. .................. ............... CRC Nurse Triage Notes (Fiona Nieves): Comments: HPI reviewed. No additional information needed to process .................. .................. .................. .................. .................. .................. .................. ............... Application Integration Architect Note From Rubi Hoffman: Sent to a call for a pt complaining of URI symptoms. SC8 arrives on scene, pt is alert and oriented, airway is patent. Pt complains of headache, runny nose w/ clear mucus, cough (turning productive with yellow phlegm yesterday, left rib pain with cough (from previous rib injury) since Thursday, lesions on face since Thursday, and fever Fri-Thu (highest temp 102.0). Pt denies dizziness, sinus pain, sore throat, cp, sob, n/v/d, abd pain, or loc. BP:106/74, P:67, RR:18, SpO2:96% RA, T:98.5; Head: lesions on upper lip, and side of left nare; Lung sounds: clear bilaterally; Abdomen: soft, non-tender, no distention; Back: unremarkable; Extremities: unremarkable; Skin: pink, warm, dry; Rapid covid test: neg; Rapid flu test: neg; [facility] consulted and pt advised it seems lesions are cold sores. [facility] sends script to pt's pharmacy. Pt advised she should drink lots of fluid, take Tylenol for pain, and pt should start seeing improvement in 48hrs. Red flags discussed. Pt has no further questions. .................. .................. .................. .................. .................. .................. .................. ............... Disposition: Fulfilled GAEL FIELDS MD [address] [facility],[address], [place], [address], [employer] 11/03/2023 22:21:59 OBGyn Episode No OBEpisode recorded.
--- OUTSIDE RECORDS SUMMARY | 2025-07-17 15:13 | XMS_ITS | Encounter Summary ---
Author Organization [employer] Address [address] [facility] 7t [place] [address] Care Team Providers Care Control Room Supervisor Name Role Phone Sarah Verduzco DO Primary Care Provider +[phone]- [phone] Reason for Visit * Reason Onset Date Comments Medication Question 03/24/2023 Encounter Details Date Type Department Care Team ([facility] Contact Info) Description 03/24/2023 Telephone [facility] MEDICINE [address] [place], [place] [phone] Sarah Verduzco DO 230 [place], [place] [phone] Medication Question Social History Tobacco Use Types [...] used to receive. Please contact pt at [phone] documented in this encounter Plan of Treatment Upcoming Encounters Date Type Department Care Team (Late st Contact Info) Description 07/18/2025 11:30 AM EST Clinical Support [facility] MEDICINE [address] [place] [address] Lauryn Cunningham RN 07/28/2025 11:00 AM EST Office Visit [facility] OPTOMETRY [address] [place], [place] [phone] Cindy Meek, OD 230 [place] [address] documented as of this encounter Visit Diagnoses Not on filedocumented in this encounter Additional Health Concerns Assessment Noted Time PHQ-9 Depression Total Score: 16 023 10:36 AM EDT documented as of this encounter Care Teams Control Room Supervisor Relationship Specialty Start Date End Date Sarah Verduzco DO 230 [place] [address] PCP - General Family Medicine 11/21/15 documented as of this encounter
--- OUTSIDE RECORDS SUMMARY | 2025-07-17 15:13 | XMS_ITS | Encounter Summary ---
Author Organization [employer] Address 75 [facility] 7t [place] [address] Care Team Providers Care Spooling Supervisor Name Role Phone Sarah Verduzco DO Primary Care Provider [phone]- [phone] Reason for Visit * Reason Onset Date Comments Nurse Triage 04/20/2023 Encounter Details Date Type Department Care Team ([facility] st Contact Info) Description 04/20/2023 Telephone [facility] MEDICINE [address] [place], [place] [phone] Sarah Verduzco DO 230 [place], [place] [phone] Nurse Triage Social History Tobacco Use Types [...] Description 07/18/2025 11:30 AM EST Clinical Support [facility] MEDICINE [address] [place] [address] Lauryn Cunningham, LUISITO 07/28/2025 11:00 AM EST Office Visit [facility] OPTOMETRY [address] [place] [address] Cindy Meek, OD 230 [place] [address] documented as of this encounter Visit Diagnoses Not on filedocumented in this encounter Additional Health Concerns Assessment Noted Time PHQ-9 Depression Total Score: 16 023 10:36 AM EDT documented as of this encounter Care Teams Spooling Supervisor Relationship Specialty Start Date End Date Sarah Verduzco DO 230 [place] [address] PCP - General Family Medicine 11/21/15 documented as of this encounter
--- OUTSIDE RECORDS SUMMARY | 2025-07-17 15:13 | XMS_ITS | Encounter Summary ---
Author Organization [employer] Address [address] [facility] [address] [place] [address] Care Team Providers Care Technical Sales Consultant Name Role Phone Sarah Verduzco DO Primary Care Provider [phone]- [phone] Reason for Visit * Reason Comments Med Refill Encounter Details Date Type Department Care Team (Late Contact Info) Description 04/19/2023 Refill [facility] MEDICINE [address] [place], [place] [phone] Sarah Verduzco DO 230 [place], [place] [phone] Chronic GERD Social History Tobacco Use Types [...] 11:30 AM EST Clinical Support [facility] MEDICINE [address] [place] [address] Lauryn Cunningham RN 07/28/2025 11:00 AM EST Office Visit [facility] OPTOMETRY [address] [place] [address] Cindy Meek, OD [address] [place] [address] documented as of this encounter Visit Diagnoses Diagnosis Chronic GERD documented in this encounter Additional Health Concerns Assessment Noted Time PHQ-9 Depression Total Score: 16 023 10:36 AM EDT documented as of this encounter Care Teams Technical Sales Consultant Relationship Specialty Start Date End Date Sarah Verduzco DO [address] [place] [address] PCP - General Family Medicine 11/21/15 documented as of this encounter
--- OUTSIDE RECORDS SUMMARY | 2025-07-17 15:13 | XMS_ITS | Encounter Summary ---
Author Organization [employer] Address [address] [facility] 7t [place] [address] Care Team Providers Care Pharmacy Assistant Name Role Phone Sarah Verduzco DO Primary Care Provider +1- [phone] Reason for Visit * Reason Comments Med Refill Encounter Details Date Type Department Care Team ([facility] Contact Info) Description 05/29/2025 Refill [facility] MEDICINE 230 [place], [place] [phone] Sarah Verduzco DO 230 [place], [place] [phone] Social History Tobacco Use Types Packs/Day Years [...] Clinical Support [facility] MEDICINE [address] [place] [address] Lauryn Cunningham RN 07/28/2025 11:00 AM EST Office Visit [facility] OPTOMETRY [address] [place] [address] Fantasma, Cindy, OD 230 [place] [address] documented as of this encounter Visit Diagnoses Not on filedocumented in this encounter Additional Health Concerns Assessment Noted Time PHQ-9 Depression Total Score: 20 025 11:28 AM EST documented as of this encounter Care Teams Pharmacy Assistant Relationship Specialty Start Date End Date Sarah Verduzco DO [address] [place] [address] PCP - General Family Medicine 11/21/15 documented as of this encounter
--- OUTSIDE RECORDS SUMMARY | 2025-07-17 15:13 | XMS_ITS | Encounter Summary ---
Author Organization [employer] Address [address] [facility] [address] [address] Care Team Providers Care Machine Feed Operator Name Role Phone Sarah Verduzco DO Primary Care Provider +[phone]- [phone] Reason for Visit * Reason Comments Med Refill Encounter Details Date Type Department Care Team (Late Contact Info) Description 04/19/2023 Refill [facility] MEDICINE [address] [place] [address] Alexa Padgett FNP Chronic bilateral low back pain without sciatica [...] Description 07/18/2025 11:30 AM EST Clinical Support [facility] MEDICINE [address] [place] [address] Lauryn Cunningham RN 07/28/2025 11:00 AM EST Office Visit [facility] OPTOMETRY [address] [place] [address] Cindy Meek, OD 230 [place] [address] documented as of this encounter Visit Diagnoses Diagnosis Chronic bilateral low back pain without sciatica documented in this encounter Additional Health Concerns Assessment Noted Time PHQ-9 Depression Total Score: 16 023 10:36 AM EDT documented as of this encounter Care Teams Machine Feed Operator Relationship Specialty Start Date End Date Sarah Verduzco DO 230 [place] [address] PCP - General Family Medicine 11/21/15 documented as of this encounter
--- OUTSIDE RECORDS SUMMARY | 2025-07-17 15:13 | XMS_ITS | Encounter Summary ---
Author Organization [employer] Address [address] [facility] 7t [place] [address] Care Team Providers Care Electronic Scale Assembler And Tester Name Role Phone Sarah Verduzco DO Primary Care Provider [phone] Reason for Visit * Reason Comments Med Refill Encounter Details Date Type Department Care Team ([facility] Contact Info) Description 04/06/2024 Refill [facility] [address] [place], [place] [phone] Sarah Verduzco DO [address] [place], [place] [phone] Social History Tobacco Use Types Packs/Day Years [...] Description 07/18/2025 11:30 AM EST Clinical Support [facility] [address] [place] [address] Lauryn Cunningham RN 07/28/2025 11:00 AM EST Office Visit [facility] [address] [place] [address] Cindy Meek, OD [address] [place] [address] documented as of this encounter Visit Diagnoses Not on filedocumented in this encounter Additional Health Concerns Assessment Noted Time PHQ-9 Depression Total Score: 24 023 8:54 AM EDT documented as of this encounter Care Teams Electronic Scale Assembler And Tester Relationship Specialty Start Date End Date Sarah Verduzco DO [address] [place] [address] PCP - General Family Medicine 11/21/15 documented as of this encounter
== END 2025-07-17 12:33 | disposition home or self-care (01) ==
LOC: HO.HGI 11:57
PROVIDERS: PCP Family Medicine; Visit Provider Internal Medicine Gastroenterology
DX: R10.13 Epigastric pain (principal)
CPT/HCPCS: 99213

== ENCOUNTER → 2025-07-17 11:57 | Outpatient (BNVA) | payer OTHER, SELFPAY | PROVIDERS: PCP Family Medicine; Visit Provider Internal Medicine Gastroenterology | DX: R10.13 Epigastric pain (principal) | CPT/HCPCS: 99212 ==

== ENCOUNTER 2025-08-23 11:20 | Outpatient (REF) | payer OTHER, SELFPAY ==
[2025-08-23 14:12] LABS: Hematocrit 36.3 % (37.0-47.0); Hemoglobin 12.0 g/dl (12.0-16.0); Mean Corpuscular HGB Conc 33.1 g/dl (31.0-35.0); Mean Corpuscular Hemoglobin 30.2 pg (27.0-33.0); Mean Corpuscular Volume 91.2 fL (80.0-98.0); NRBC Abs Auto 0.000 X10*3/uL (0.0-0.012); NRBC Pct Auto 0.0 /100WBC (0.0-0.2); Platelet Count 332 X10*3/uL (160-400); Red Blood Count 3.98 X10*6/uL (4.20-5.50); White Blood Count 7.4 X10*3/uL (4.8-10.8)
[2025-08-23 14:38] LABS: Alanine Aminotransferase 15 U/L (0-31); Albumin Level 4.4 g/dL (3.5-5.0); Alkaline Phosphatase 79 U/L (39-117); Anion Gap 8 (12-20); Aspartate Amino Transferase 23 U/L (5-31); Blood Urea Nitrogen 12 mg/dL (9-16); Calcium 9.2 mg/dL (8.4-10.2); Carbon Dioxide 32 mmol/L (22-29); Chloride 103 mmol/L (96-108); Cholesterol 292 mg/dL (<200); Estimated Glomerular Filt Rate > 60; HDL Cholesterol 77 mg/dL (>40); Potassium 3.9 mmol/L (3.3-5.1); Sodium 139 mmol/L (135-145); Total Protein 8.2 g/dL (6.5-8.0); Triglycerides 144 mg/dL (<150)
[2025-08-23 14:55] LABS: Free T4 (Free Thyroxine) 0.98 ng/dL (0.71-1.85); Thyroid Stimulating Hormone 1.07 uIU/mL (0.32-4.0)
--- OUTSIDE RECORDS SUMMARY | 2025-08-23 18:19 | XMS_ITS | Encounter Summary ---
Author Organization [email or web address] Address [address] [place] [address] Care Team Providers Care Dehydrogenation Operator Head Name Role Phone Sarah Verduzco DO Primary Care Provider [phone] Encounter Details Date Type Department Care Team ([facility] Contact Info) Description 07/27/2023 Telephone [facility] [address] [place], [place] [phone] Sarah Verduzco DO [address] [place], [place] [phone] Social History Tobacco Use Types Packs/Day Years [...] Care Team (Late st Contact Info) Description 09/21/2025 9:00 AM EST Clinical Support [facility] [address] [place] [address] Lauryn Cunningham, LUISITO 01/26/2026 11:00 AM EDT Office Visit [facility] OPTOMETRY [address] [place] [address] Fantasma, Cindy, OD [address] [place] [address] documented as of this encounter Visit Diagnoses Not on filedocumented in this encounter Additional Health Concerns Assessment Noted Time PHQ-9 Depression Total Score: 24 023 8:54 AM EDT documented as of this encounter Care Teams Dehydrogenation Operator Head Relationship Specialty Start Date End Date Sarah Verduzco DO [address] [place] [address] PCP - General Family Medicine 11/21/15 documented as of this encounter
--- OUTSIDE RECORDS SUMMARY | 2025-08-23 18:19 | XMS_ITS | Encounter Summary ---
Author Organization [employer] Address [address] [facility] 7t [place] [address] Care Team Providers Care Lead Tinner Name Role Phone Sarah Verduzco DO Primary Care Provider [phone] Reason for Visit * Reason Onset Date Comments Nurse Triage 07/20/2023 Encounter Details Date Type Department Care Team ([facility] Contact Info) Description 07/20/[address] [facility] [address] [place], [place] [phone] Sarah Verduzco DO [address] [place], [place] [phone] Nurse Triage Social History Tobacco Use Types [...] t he electric, gas, oil or water [employer] threatened to shut off services in your [...] accepted this outcome Please contact pt at [phone] documented in this encounter Plan of Treatment Upcoming Encounters Date Type Department Care Team (Late st Contact Info) Description 09/21/2025 9:00 AM EST Clinical [facility] [address] [place] [address] Lauryn Cunningham, RN 01/26/2026 11:00 AM EDT Office Visit [facility] OPTOMETRY [address] [place] [address] Cindy Meek, ALBINA [address] [place] [address] documented as of this encounter Visit Diagnoses Not on filedocumented in this encounter Additional Health Concerns Assessment Noted Time PHQ-9 Depression Total Score: 24 023 8:54 AM EDT documented as of this encounter Care Teams Lead Tinner Relationship Specialty Start Date End Date Sarah Verduzco DO [address] [place] [address] PCP - General Family Medicine 11/21/15 documented as of this encounter
--- OUTSIDE RECORDS SUMMARY | 2025-08-23 18:19 | XMS_ITS | Encounter Summary ---
Author Organization [employer] Address [address] [facility] 7[address] [place] [address] Care Team Providers Care School Resource Officer Name Role Phone Sarah Verduzco DO Primary Care Provider [phone] Reason for Visit * Reason Comments Med Refill Encounter Details Date Type Department Care Team ([facility] Contact Info) Description 09/08/2023 Refill [facility] [address] [place], [place] [phone] Sarah Verduzco DO [address] [place], [place] [phone] Social History Tobacco Use Types Packs/Day Years [...] Description 09/21/2025 9:00 AM EST Clinical Support [facility] [address] [place], [place] [phone] Lauryn Cunningham, LUISITO 01/26/2026 11:00 AM EDT Office Visit [facility] OPTOMET[facility] [address] [place] [address] Fantasma, Cindy, OD [address] [place] [address] documented as of this encounter Visit Diagnoses Not on filedocumented in this encounter Additional Health Concerns Assessment Noted Time PHQ-9 Depression Total Score: 24 023 8:54 AM EDT documented as of this encounter Care Teams School Resource Officer Relationship Specialty Start Date End Date Sarah Verduzco DO [address] [place] [address] PCP - General Family Medicine 11/21/15 documented as of this encounter
--- OUTSIDE RECORDS SUMMARY | 2025-08-23 18:22 | XMS_ITS | Encounter Summary ---
Author Organization [employer] Address [address] 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 documented in this encounter Plan of Treatment Upcoming Encounters Date Type Department Care Team (Late st Contact Info) Description 09/21/2025 9:00 AM EST Clinical Support [facility] [address] [place] [address] Lauryn Cunningham RN 01/26/2026 11:00 AM EDT Office Visit [facility] OPTOMET[facility] [address] [place], [place] [phone] Cindy Meek, OD [address] [place] [address] documented as of this encounter Visit Diagnoses Diagnosis Chronic neck pain Cervicalgia documented in this encounter Additional Health Concerns Assessment Noted Time PHQ-9 Depression Total Score: 24 023 8:54 AM EDT documented as of this encounter Care Teams Military Communications Specialist Relationship Specialty Start Date End Date Sarah Verduzco DO [address] [place] [address] PCP - General Family Medicine 11/21/15 documented as of this encounter
--- OUTSIDE RECORDS SUMMARY | 2025-08-23 18:22 | XMS_ITS | Clinical Summary ---
Author Organization [employer] Address [address] [facility] [address] [place] [address] Care Team Providers Care Compensation Advisor Name Role Phone Sarah Verduzco DO Primary Care Provider Allergies Active Allergy Reactions Criticality Noted Date [...] tablet by mouth at bed time. Active busPIRone (Buspar) 5 MG tablet Take 1 tablet by mouth 3 times daily. For anxiety 023 Active lansoprazole (Prevacid) [address] capsule Take 1 capsule by mouth 2 times daily. 023 Active Yuvafem 10 MCG tablet vaginal tablet INSERT 1 INSERT VAGINALLY 2 TIMES A WEEK USE 2 TIMES A WEEK AT BEDTIME, MON/THURS 023 Active Mometasone Furoate (Asmanex HFA) 100 MCG/ACT aerosol Inhale 1 Act (100 mcg) 2 times daily. 13 g 11 025 Active hydroquinone 4 % creamIndications: Melasma APPLY TO THE AFFECTED AREA(S) TWICE DAILY IN THE MORNING AND AT BEDTIME 28.35 g 5 5 12:05 PM EST 025 Active nitrofurantoin (Macrodantin) 50 MG capsule TAKE 1 CAPSULE ORALLY USE AFTER SEXUAL ACTIVITY MUST ADMINISTER WITH A MEAL/FOOD 025 Active clonazePAM (KlonoPIN) 0.5 MG tablet 025 Active atorvastatin (Lipitor) 40 MG tabletIndications :Other hyperlipidemia TAKE 1 TABLET BY MOUTH ONCE PER DAY 90 tablet 3 025 Active D3 Super Strength 50 MCG (2000 UT) capsuleIndication s:Vitamin D deficiency TAKE 1 CAPSULE (50 MCG) BY MOUTH ONCE PER DAY. 90 capsule 3 025 Active capsaicin (Capzasin-HP) 0.1 % creamIndications: Cervical spondylosis Apply thin layer by topical route up to 4 times daily for pain. 45 g 3 025 Active acetaminophen (Tylenol 8 [...] 2 TABS PER DAY. 20 tablet 1 5 9:47 AM EST 025 Active Diclofenac Sodium 1 % gelIndications:Ce rvical spondylosis APPLY THIN LAYER BY TOPICAL ROUTE (QUANTITY DIRECTED ON PACKAGE INSERT) TO AFFECTED AREA OF PAIN 3 TIMES DAILY NEEDED. 100 g 3 025 Active oxyCODONE-acetami nophen (Percocet) 5-325 MG tabletIndications :Chronic bilateral low back pain with left-sided sciatica Take 1 tablet by mouth every 6 (six) hours if needed for severe pain for up to 28 days. Do not start before July 27, 2025. 112 tablet 025 2024 Active mesalamine ER (Apriso) 0.375 g 24 hr capsule TAKE 4 CAPSULES ORALLY EVERY MORNING FOR 90 DAYS 025 Active escitalopram (Lexapro) 20 MG tablet TAKE 1 TABLET BY MOUTH EVERY DAY WITH 5MG TABLET FOR 15MG TOTAL DOSE Active erythromycin (Romycin) 5 MG/GM ophthalmic ointment Apply to affected eye(s) 4 times daily for 10 days. Apply Amount per Dose: 0.5 inch (~1 cm) per dose. 3.5 g 025 2024 Active albuterol 108 (90 Base) MCG/ACT inhaler Inhale 2 puffs every 4 (four) hours if needed for wheezing or shortness of breath. 18 g 2 Active baclofen (Lioresal) 10 MG tablet Take 1 tablet (10 mg) by mouth if needed in the morning, at noon, and at bedtime for muscle spasms. 60 tablet 3 025 2025 Active loratadine (Claritin) 10 MG tablet Take 1 tablet (10 mg) by mouth if needed each day for allergies. 90 tablet 3 Active fluticasone (Flonase) 50 MCG/ACT nasal sprayIndications: Seasonal allergic rhinitis, unspecified trigger Administer 2 sprays into each nostril if needed each day for rhinitis or allergies. 48 mL 3 Active sodium chloride (SALINE MIST) 0.65 % nasal sprayIndications: Sinusitis, unspecified chronicity, unspecified location USE 1-2 SPRAYS ON EACH NOSTRIL EVERY 2-3 HOURS NEEDED FOR NASAL CONGESTION 44 mL 023 2024 Discontinued(T herapy completed) albuterol 108 (90 Base) MCG/ACT inhaler TAKE 2 PUFFS BY MOUTH EVERY 4 TO 6 HOURS NEEDED 022 2024 Discontinued(T herapy completed) valACYclovir (Valtrex) 1 g tablet TAKE 2 TABLETS BY MOUTH EVERY 12 HOURS FOR 1 DAY 024 2024 Discontinued(T herapy completed) gabapentin (Neurontin) 600 MG tablet Take 1 tablet (600 mg) by mouth 3 times daily. 90 tablet 3 024 2024 Discontinued(T herapy completed) fluticasone (Flonase) 50 MCG/ACT nasal sprayIndications: Seasonal allergic rhinitis, unspecified trigger SPRAY 2 SPRAYS INTO EACH NOSTRIL EVERY DAY 48 mL 1 024 2024 Discontinued(T herapy completed) Ketotifen Fumarate (Alaway) 0.035 % solution Administer 1 drop into affected eye(s) if needed in the morning and at bedtime (eye alleriges/itc natasha). 10 mL 1 024 2024 Discontinued(T herapy completed) Diclofenac Sodium 1 % cream Apply 2 g topically if needed in the morning and at bedtime (pain). 120 g 3 024 2024 Discontinued(T herapy completed) loratadine (Claritin) 10 MG tablet TAKE 1 TABLET BY MOUTH EVERY DAY 90 tablet 1 024 2024 Discontinued(T herapy completed) Cranberry Juice Powder 425 MG capsule TAKE ONE (1) CAPSULE BY MOUTH TWICE DAILY WITH MEALS 2024 Discontinued(T herapy completed) baclofen (Lioresal) 10 MG tablet Take 1 tablet (10 mg) by mouth if needed in the morning, at noon, and at bedtime for muscle spasms. 60 tablet 3 024 2024 Discontinued(T herapy completed) escitalopram (Lexapro) 5 MG tablet TAKE 1 TABLET BY MOUTH ONCE A DAY TAKE WITH 10MG TAB FOR 15MG TOTAL DOSE 2024 Discontinued(T herapy completed) lidocaine (Xylocaine) 5 % ointmentIndicatio ns:Cervical spondylosis Apply topically if needed in the morning, at noon, and at bedtime (pain). 30 g 3 025 2024 Discontinued(T herapy completed) Diclofenac Sodium 1 % gelIndications:Ce rvical spondylosis Apply thin layer by topical route (quantity as directed on package insert) to affected area of pain 3 times daily as needed. 50 g 3 025 2024 Discontinued neomycin-polymyxi n-dexAMETHasone 0.1 % ointment Apply to right eyelids twice a day. 3.5 g 1 025 2024 escitalopram (Lexapro) 10 MG tablet TAKE 1 TABLET BY MOUTH ONCE A DAY, TAKE WITH 5MG TAB FOR 15MG TOTAL DOSE 10/ 2025 Discontinued(M ed list cleanup (will not trigger notification to Pharmacy)) Active Problems Problem Noted Date Diagnosed Date Post traumatic stress disorder 08/23/2025 BMI 27.0-27.9,adult 08/23/2025 Long-term current use of opiate analgesic 2024 Overview (03/06/2025): Medication: percocet 5/325mg Q6H PRN Indication: cervical DDD, cervical spondylosis, lumbar spondylosis, fibromyalgia Last WIRE MACHINE OPERATOR Agreement: 11/07/24 Tier 2 (WIRE MACHINE OPERATOR visits Q3 months) Assessment & Plan (03/07/2025 2:20 PM EDT): Timeline: - 03/07/25: Group - utox/pill count as expected Chorioretinal scar of right eye 01/25/2025 Age-related nuclear cataract of left eye 025 Lattice degeneration of peripheral retina, left 01/25/2025 Blindness right eye category 4, normal vision le ft eye 01/25/2025 Chronic, continuous use of opioids 07/07/2024 Overview (07/07/2024): Dx: Rx: Last WIRE MACHINE OPERATOR agreement: Tier II (visit every [...] She request prescription to be send to [facility] pharmacy due to not being covered at [facility]. 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 08/23/2025 Asthma 08/20/2023 08/20/2023 08/20/2023 Myofascial pain 08/20/2023 08/20/202308/2008/20/2023 Preoperative clearance 07/02/202308/20 Assessment & Plan (07/02/2023 [...] She requests prescriptions to be sent to [facility] pharmacy due to not being covered at [facility] Fibromyositis 11/21/2015 01/27/2023 Overweight (BMI 25.0-29.9) 11/21/2015 0 01/27/2023 Encounters Date Type Department Care Team Description 08/23/2025 10:00 AM EST Office Visit [facility] [address] [place] [address] Sarah Verduzco DO Major depression, recurrent, chronic (CMS/HCC) (Primary Dx); Mild persistent asthma without complication; Allergic rhinitis, unspecified seasonality, unspecified trigger; Other hyperlipidemia; Chronic migraine; Chronic gastroesophageal reflux disease; Thyroid nodule; Multiple pulmonary nodules; Microscopic hematuria; Fibromyalgia; Chronic neck pain; Chronic bilateral low back pain without sciatica; Macular hemorrhage of right eye; Hordeolum externum of left upper eyelid; Nocturnal leg cramps; Healthcare maintenance; Breast cancer screening by mammogram; Seasonal allergic rhinitis, unspecified trigger 08/23/2025 Orders Only GENERIC EXTERNAL DATA DEPARTMENT Provider, Generic External Data 08/23/2025 Travel 08/22/2025 Telephone [facility] [address] [place] [address] Sarah Verduzco DO Chart Prep 08/15/[address] [address] Lauryn Cunningham, LUISITO Reschedule WIRE MACHINE OPERATOR appt 08/23/25 08/14/2025 Patient Outreach [address] [address] Sarah Verduzco DO Pre-visit Planning (SDOH screening negative and tobacco screening negative) 08/05/2025 Refill [facility] [address] [place] [address] Sarah Verduzco DO Chronic nonintractable headache, unspecified headache type 08/04/2025 Travel 07/28/2025 11:00 AM EST Office Visit [facility] [address] [place] [address] Fantasma, Cindy, OD Macular hemorrhage of right eye (Primary Dx); Hordeolum internum of right lower eyelid; Hx of retinal detachment; Chorioretinal scar of right eye; Aphakia, right eye; Lattice degeneration of peripheral retina, left; Blindness right eye category 4, normal vision left eye 07/28/2025 Travel 07/23/2025 Refill [facility] [address] [place] [address] Fiona Heaton FNP Cervical spondylosis 07/18/2025 11:30 AM EST Clinical Support [address] [address] Lauryn Cunningham, RN Long-term current use of opiate analgesic (Primary Dx) 07/18/2025 Refill [facility] [address] [place] [phone] Lauryn Cunningham, peanut sheller bilateral low back pain with left-sided sciatica 07/18/2025 Travel 06/27/2025 Refill [facility] [address] [place] [phone] Sarah Verduzco DO Chronic bilateral low back pain with left-sided sciatica 06/27/2025 Refill [facility] [address] [place] [address] Sarah Verduzco DO Chronic nonintractable headache, unspecified headache type 06/23/2025 9:45 AM EDT Office Visit [facility] [address] [place] [address] Ben Cabrera, LAMP SHADES SUPERVISOR Chronic bilateral low back pain with left-sided sciatica (Primary Dx) 06/23/2025 Travel 06/22/2025 Telephone [facility] [address] [place] [address] Ben Cabrera, LAMP SHADES SUPERVISOR Chart Prep 06/22/2025 Telephone [facility] [address] [place] [address] Sarah Verduzco DO Nurse Triage 06/01/2025 Refill [facility] [address] [place] [address] Sarah Verduzco DO Chronic nonintractable headache, unspecified headache type 05/29/2025 Refill [facility] [address] [place] [address] Sarah Verduzco DO 05/29/2025 Refill [facility] [address] [place] [address] Sarah Verduzco DO Chronic bilateral low back pain with left-sided sciatica 05/29/2025 Refill [facility] [address] [place] [address] Sarah Verduzco DO Chronic nonintractable headache, unspecified headache type 05/29/2025 Refill [facility] [address] [place] [address] Sarah Verduzco DO from Last 3 Months Immunizations Immunization Administration [...] Answer Date Recorded Patient Health Questionnaire-9 Score 17 08/23/2025 Patient Health Questionnaire-9 Score 17 08/23/2025 Last PHQ-9: Questionnaire Data Not on file 1 10/24/2024 Housing Stability Answer Date Recorded What is your housing situation today? I have dave king 08/14/[address] you li ve. Do you have problems with any of the following? Pests such as bugs, ants, or mice 08/14/2025 Food Insecurity Answer Date Recorded Within the past 12 months, y ou worried that your food would run out before you got money to buy more: Never True 08/14/2025 Within the past 12 months,th e food you bought just didn't last and you didn't have enough money to get more: Never True 09/2024 Transportation Answer Date Recorded In the past 12 months, has l ack of transportation kept you from medical appts, meetings, work or from getting things needed for daily living? No 08/14/2025 Utilities Answer Date Recorded In the past 12 months, has t he electric, gas, oil or water company threatened to shut off services in your home? No 08/14/2025 Depression Answer Date Recorded Patient Health Questionnaire-2 Score 6 08/23/2025 Internet Access Answer Date Recorded Internet Access Q1 Yes 08/14/2025 Internet Access Q2 Not on file 08/14/2025 Comments Unknown Sex and Gender Information Value Date Recorded Sex Assigned at Female 07/14/2022 10:29 AM EDT Legal Sex Female 10:29 AM EDT Gender Identity Female 07/14/2022 10:29 AM EDT Sexual Orientation Don't know 07/14/2022 10 :29 AM EDT Last Filed Vital Signs Vital Sign Reading Time Taken Comments Blood Pressure 120/80 08/23/2025 10:20 AM EST Pulse 72 08/23/2025 10:20 AM EST Temperature 36.7 C (98.1 F) 08/23/2025 10:20 AM EST Respiratory Rate 20 06/23/2025 9:38 AM EDT Oxygen Saturation 100% 11/14/2024 11:21 AM EST Inhaled Oxygen Concentration - - Weight 62 kg (136 lb 9.6 oz) 08/23/2025 10:20 AM EST Height 149.9 cm (4' 11 ) 08/23/2025 10:20 AM EST Body Mass Index 27.59 08/23/2025 10:20 AM EST Plan of Treatment Upcoming Encounters Date Type Department Care Team (Late st Contact Info) Description 09/21/2025 9:00 AM EST Clinical Support [facility] [address], [place] [phone] Lauryn Cunningham, LUISITO 01/26/2026 11:00 AM EDT Office Visit [facility] [address] [place], [place] [phone] Fantasma, Cindy, OD [address] [place] [address] Health Maintenance Due Date Last Done Comments CT Colonography 1966 FIT DNA/Cologuard 1966 FIT 1966 FOBT 1966 Sigmoidoscopy 1966 Hepatitis B Vaccines (1 of 3 - 19+ 3-dose series) 1985 Pneumococcal Vaccine: 50+ Years (1 of 2 - PCV) 1985 RSV Patients and Patients Aged 60 years or older (1 - Risk 50-74 years 1-dose series) 2016 Zoster Vaccines (1 of 2) 2016 COVID-19 Vaccine (3 - season) 2025 02/01/2021, 01/04/2021 Influenza Vaccine (#1) 2025 Alcohol/Substance Use Screening 11/14/2025 11/14/2024 Depression Monitoring 02/21/2026 08/23/2025, 025 Mammogram 06/22/2026 06/22/2024, 05/16, 10/11/2021, Additional history exists Disability Screening 06/23/2026 06/23/2025 SDOH Screening 08/14/2026 08/14/2025 Tobacco Screening 08/23/2026 08/23/2025 Colonoscopy 08/24/2026 08/24/2024, 03/24/2017 Colorectal Cancer Screening 08/24/2026 DTaP/Tdap/Td Vaccines (3 - Td or Tdap) 12/13/2032 12/13/2022, 06/10/2022 HIV Screening Completed 05/04/2024, 05/16, 12/04/2020, Additional [...] Procedure Name Priority Date/Time Associated Diagnosis Comments TSH W/REFLEX TO FT4 Routine 08/23/2025 1 1:38 AM EST BASIC METABOLIC PANEL Routine 08/23/2025 11:38 AM EST Major depression, recurrent, chronic (CMS/HCC) CBC Routine 08/23/2025 11:38 AM EST Major depression, recurrent, chronic (CMS/HCC) HEMOGLOBIN A1C Routine 08/23/2025 11:38 AM EST Major depression, recurrent, chronic (CMS/HCC) HEPATIC FUNCTION PANEL Routine 08/23/2025 11:38 AM EST Major depression, recurrent, chronic (CMS/HCC) VITAMIN D,25-OH,TOTAL,IA Routine 08/23/2025 11:38 AM EST Major depression, recurrent, chronic (CMS/HCC) TSH Routine 08/23/2025 11:38 AM EST Major depression, recurrent, chronic (CMS/HCC) LIPID PANEL, STANDARD Routine 08/23/2025 11:38 AM EST Major depression, recurrent, chronic (CMS/HCC) T4, FREE Routine 08/23/2025 11:38 AM EST Major depression, recurrent, chronic (CMS/HCC) OCT, RETINA - OU - BOTH EYES Routine 07/28/2025 11:00 AM EST Macular hemorrhage of right eye POCT NEREYDA-14 URINE DRUG SCREEN Routine 07/18/2025 11:35 AM EST Long-term current use of opiate analgesic AMB REFERRAL TO NEUROSURGERY Urgent 07/07/2025 Chronic bilateral low back pain with left-sided sciatica HM COLONOSCOPY Routine 08/24/2024 BI MAMMOGRAM SCREENING [...] Relevant to Health Maintenance Results * (ABNORMAL) Vitamin D, 25-Hydroxy, Total, Immunoassay (08/23/2025 11:38 AM EST) Vitamin D 25-OH Total 28.5(L) >30 ng/mL [facility] Comment: Health Based Reference Values*< 20 ng/mL [id number] ng/mL Insufficient> 30 ng/mL Sufficient*Juan PARTIDA. N Engl J Med. 2007;357:266-280There is no well-established upper level of normal vitamin Dlevels. Some laboratories use 50 ng/mL as an upper limit ofnormal. However, toxicity is patient-dependent and may occurat any level. Careful correlation with the patient'spresentation is necessary and, if there is concern forvitamin D toxicity, treatment should be consideredirrespective of the serum level.Care must be taken in interpreting Vitamin D results fromdifferent laboratories and methodologies. Published datademonstrated that results from patients undergoinghemodialysis may show a negative bias when tested withvarious automated 25-OH vitamin D assays when compared toLC-MS/MS.When testing samples from patients whose predominant form ofVitamin D is Vitamin D2, such as patients receiving VitaminD2 supplementation, results that are subtherapeutic shouldbe confirmed with another method such as LC-MS/MS. Blood Venous blood specimen / Unknown 08/23/2025 11:38 AM EST 08/23/2025 2:05 PM EST us Sarah Verduzco DO LAB BLOOD ORDERABLES Final R esult [facility] [address] [place] [phone] [phone] * TSH with Reflex to Free T4 (08/23/2025 11:38 AM EST) TSH reflex Free T4 1.06 0.32 - 4.0 uIU/mL [facility] 08/23/2025 11:3 8 AM EST 08/23/2025 2:05 PM EST us Generic External Data Provider LAB BLOOD ORDERAB LES Final Result Performing Organization Address City/[facility]/ZIP Co de Phone Number [facility] [address] [place] [phone] * (ABNORMAL) CBC (08/23/2025 11:38 AM EST) White Blood Count 7.4 4.8 - 10.8 X10*3/uL [facility] Red Blood Count 3.98(L) 4.20 - 5.50 X10*6/uL [facility] Hemoglobin 12.0 12.0 - 16.0 g/dl [facility] Hematocrit 36.3(L) 37.0 - 47.0 % [facility] Mean Corpuscular Volume 91.2 80.0 - 98.0 fL [facility] Mean Corpuscular Hemoglobin 30.2 27.0 - 33.0 pg [facility] Mean Corpuscular HGB Conc 33.1 31.0 - 35.0 g/dl [facility] Red Cell Distribution Width 12.5 11.0 - 16.0 % [facility] Platelet Count 332 160 - 400 X10*3/uL [facility] Mean Platelet Volume 9.6 9.4 - 12.3 fL [facility] NRBC Pct Auto 0.0 0.0 - 0.2 /100WBC [facility] NRBC Abs Auto 0.000 0.0 - 0.012 X10*3/uL [facility] Blood Venous blood specimen / Unknown 08/23/2025 11:38 AM EST 08/23/2025 2:05 PM EST us Sarah Verduzco DO LAB BLOOD ORDERABLES Final R esult Performing Organization Address City/[facility]/ZIP Co de Phone Number [facility] [address] [place] [phone] * TSH (08/23/2025 11:38 AM EST) Thyroid Stimulating Hormone 1.07 0.32 - 4.0 uIU/mL [facility] Comment:TSH 3rd Generation ( [facility] [facility]) Blood Venous blood specimen / Unknown 08/23/2025 11:38 AM EST 08/23/2025 2:05 PM EST Sarah Verduzco LAB BLOOD ORDERABLES Final R esult Performing Organization Address City/[facility]/ZIP Co de Phone Number [facility] [address] [place] [phone] * T4, Free (08/23/2025 11:38 AM EST) Free T4 (Free Thyroxine) 0.98 0.71 - 1.85 ng/dL [facility] Blood Venous blood specimen / Unknown 08/23/2025 11:38 AM EST 08/23/2025 2:05 PM EST Sarah Perkinscorina DO LAB BLOOD ORDERABLES Final R esult Performing Organization Address City[facility] Co de Phone Number [facility] [address] [place] [phone] * Hemoglobin A1c (08/23/2025 11:38 AM EST) Hemoglobin A1c 5.3 <6.0 % [facility] Comment:Hemoglobin A1C Refer ence Range Adults: 4.8 - 6.0 % Non diabetic: < 6.0 % Goal: < 7.0 %Additional Action Suggested: > 8.0 %Note: Hemoglobin A1c results are invalid for patients with abnormal amounts of HbF. Blood transfusions may impact the HbA1c concentration in the patient sample. Estimated Average Glucose 105 mg/dL [facility] Comment:eAG = Estimated ave rage glucose which is %A1C expressed asaverage glucose, using the formula of the H4G-QbtuolrSnaahre Glucose study (ADAG), Diabetes Care, Vol.31,#8,2007 Blood Venous blood specimen / Unknown 08/23/2025 11:38 AM EST 08/23/2025 2:05 PM EST Sarah Dax DO LAB BLOOD ORDERABLES Final R esult Performing Organization Address City[facility]/ZIP Co de Phone Number [facility] [address] [place] [phone] * (ABNORMAL) Hepatic Function Panel (08/23/2025 11:38 AM EST) Bilirubin, Total 0.4 0.0 - 1.0 mg/dL [facility] Bilirubin, Direct 0.1 0.0 - 0.5 mg/dL [facility] Aspartate Amino Transferase 23 5 - 31 U/L [facility] Alanine Aminotransferase 15 0 - 31 U/L [facility] Total Protein 8.2(H) 6.5 - 8.0 g/dL [facility] Albumin Level 4.4 3.5 - 5.0 g/dL [facility] Alkaline Phosphatase 79 39 - 117 U/L [facility] Blood Venous blood specimen / Unknown 08/23/2025 11:38 AM EST 08/23/2025 2:05 PM EST Sarah Verduzco DO LAB BLOOD ORDERABLES Final R esult Performing Organization Address City/[facility]/ZIP Co de Phone Number [facility] [address] [place] [phone] * (ABNORMAL) Lipid Panel, Standard (08/23/2025 11:38 AM EST) Triglycerides 144 <150 mg/dL [facility] Comment:Desirable Triglyceri de: less than 150 mg/dLBorderline High Triglyceride 150-199 mg/dLHigh Triglyceride: 200-499 mg/dLVery High Triglyceride: greater than or equal to 5OO mg/dL Cholesterol 292(H) <200 mg/dL [facility] Comment:Desirable Cholestero l: less than 200 mg/dLBorderline High Cholesterol: 200-239 mg/dLHigh Cholesterol: greater than 239 mg/dL LDL Cholesterol Calculated 187(H) <100 mg/dL [facility] Comment:Desirable LDL: less than 100 mg/dLNear Optimal/Above Optimal LDL: 110- 129 mg/dLBorderline High LDL: 130-159 mg/dLHigh LDL: 160-189 mg/dLVery High LDL: greater than or equal to 190 mg/dL HDL Cholesterol 77 >40 mg/dL [facility] Comment:Desirable HDL: great er than 40 mg/dL Note: This HDL assay may give artificially low results in patients with liver disease. Blood Venous blood specimen / Unknown 08/23/2025 11:38 AM EST 08/23/2025 2:05 PM EST us Sarah Verduzco DO LAB BLOOD ORDERABLES Final R esult [facility] [address] [place] [phone] * (ABNORMAL) Basic Metabolic Panel (08/23/2025 11:38 AM EST) Sodium 139 135 - 145 mmol/L [facility] Potassium 3.9 3.3 - 5.1 mmol/L [facility] Chloride 103 96 - 108 mmol/L [facility] Carbon Dioxide 32(H) 22 - 29 mmol/L [facility] Anion Gap 8(L) 12 - 20 [facility] Urea Nitrogen (BUN) 12 9 - 16 mg/dL [facility] Creatinine, Serum 0.68 0.5 - 1.4 mg/dL [facility] Estimated Glomerular Filt Rate >60 [facility] Comment:Chronic Kidney Disea se: Estimated GFR < 60 mL/min/[id number] Kidney Disease: Estimated GFR < 15 mL/min/1.73m2 Glucose 90 60 - 115 mg/dL [facility] Calcium 9.2 8.4 - 10.2 mg/dL [facility] Blood Venous blood specimen / Unknown 08/23/2025 11:38 AM EST 08/23/2025 2:05 PM EST Sarah Verduzco DO LAB BLOOD ORDERABLES Final R esult [facility] [address] [place] [phone] * OCT, Retina - OU - Both Eyes (07/28/2025 11:00 AM EST) Lexy Cindy Meek, OD - 08/21/2025 10:26 AM EST Images from the original result were not included. OCT [facility] [employer] Optical Coherence Tomography Interpretation Report Measurements: OD OS Macula Thickness 293 microns 244 microns Test findings: OD: Elevated fovea with overlying epiretinal membrane, Significant cystoid macular edema inferonasal to fovea, large choroidal neovascular membrane nasal to fovea, subretinal fluid throughout macula OS: Normal foveal contour, no cystoid macular edema, no retinal pigment epithelium disruption, no subretinal fluid Impression and Plan: Macular hemorrhage present in the right eye. Will refer to Dr. Ashford at [facility] for further evaluation and potential treatment. Will monitor here in 6 months. Cindy Meek OD OPHTH TOMOGRAPHY Final Result * (ABNORMAL) POCT NEREYDA-14 Urine Drug Screen (07/18/2025 11:35 AM EST) THC Negative Negative Cocaine Screen, Urine Negative Negative Opiate Screen, Urine Negative Negative Methamphetamine Screen Urine Negative Negative Amphetamine Screen, Urine Negative Negative Benzodiazepines Screen, Urine Negative Negative Barbiturate Screen, Urine Negative Negative Methadone Screen, Urine Negative Negative Buprenophine Screen, Urine Negative Negative TCA, Urine Negative Negative MDMA Urine Negative Negative ng/mL Oxycodone Screen, Urine Positive(A) Negative Comment:WIRE MACHINE OPERATOR pt on Percocet Phencyclidine (PCP), Urine Negative Negative Propoxyphene, Urine Negative Negative Fentanyl, Urine Negative Negative Urine Urine specimen obtained by clean catch procedure / Unknown 07/18/2025 11:35 AM EST Narrative Lauryn Cunningham RN - 07/18/2025 11:35 AM EST UTOX cup Lot#[id number] Exp. 06/20/26 Internal Pass Control Sarah Verduzco DO POINT OF CARE TEST ENTER/DAVID T ORDERABLES Final Result * Referral to Neurosurgery (07/07/2025) Ben Cabrera LAMP SHADES SUPERVISOR OUTPATIENT REFERRAL ORDERABLE S Final Result * Hm Colonoscopy (08/24/2024) Colonoscopy Normal Normal Narrative Jessa Diaz - 08/24/2024 Repeat colonoscopy in about 1-2 years ( see external hospital admission note on 08/24/2024) Historical Provider MD HEALTH MAINTENANCE Final Result * BI Mammogram Screening Tomosynthesis Bilateral (06/22/2024 9:45 AM EDT) Anatomical Region Laterality Modality Breast Bilateral Mammography 06/22/2024 9:45 AM EDT Narrative 07/04/2024 6:01 PM EDT [facility] [place] [address] Mammography Report Signed Patient: Miryam Fan MR#: [id number] [birth year] : 1965 Acct:[id number] Age/Sex: 58 / F ADM Date: 06/22/24 Loc: HO.MAMMO Attending Dr: Sarah Verduzco DO Ordering Physician: Sarah Verduzco DO Results: 1N egative Date of Service: 06/22/24 Follow Up: 1 Year From Orig inal Mammogram Procedure(s): MM tomosynthesis screening BI Accession Number(s): [id number] cc: Sarah Verduzco DO EXAMINATION: MM SCREENING [...] OV> 07/04/24 1757 DD/ 4 TD/TT: 06/22/24957 Automotive Service Director: Procedure Note Donotuseinterpreter, Image - 07/04/2024 [facility] [address] [place], [place] [address] Mammography Report Signed Patient: Miryam FanMR#: [id number] 06 : 1965Acct:[id number] Age/Sex: 58 / FADM Date: 06/22/24 Loc: HO.MAMMO Attending Dr: Sarah Verduzco DO Ordering Physician: Sarah Verduzcoults: 1N egative Date of Service: 06/22/24Follow Up: 1 Year From Orig inal Mammogram Procedure(s): MM tomosynthesis screening BI Accession Number(s): [id number] cc: Sarah Verduzco DO EXAMINATION: MM SCREENING [...] 07/04/24 1757 DD/ 0945 TD/TT: 06/22/24 0958 Automotive Service Director: Sarah Verduzco DO IMG BI PROCEDURES Edited Res ult - Final * Hepatitis C Antibody with Reflex to HCV, RNA, Quantitative, Real-Time PCR (05/04/2024 12:27 PM EDT) Hepatitis C Antibody Nonreactive Nonreactive [facility] Comment:Antibodies to HCV no t detected; does not exclude early acuteHCV infection. Blood Venous blood specimen / Unknown 05/04/2024 12:27 PM EDT 05/04/2024 1:01 PM EDT Sarah Verduzco DO LAB BLOOD ORDERABLES Final R esult [facility] [address] [place] [phone] * HIV-1/2 Antigen and Antibodies, Fourth Generation, with Reflexes (05/04/2024 12:27 PM EDT) HIV AB/AG Nonreactive Nonreactive [facility] Comment:HIV-1 p24 Ag and/or HIV-1/HIV-2 Ab not detected.A test result that is nonreactive does not exclude thepossibility of exposure to or infection with HIV-1 and/orHIV-2. Nonreactive results in this assay for individualswith prior exposure to HIV-1 and/or HIV-2 may be due toantigen and antibody levels that are below the limit ofdetection of this assay.The [employer] HIV Ag/Ab Combo assay result andsupplemental assay results should be interpreted inconjunction with the patient's clinical presentation,history and other laboratory results. If the results areinconsistent with clinical evidence, additional testing issuggested to confirm the result. Blood Venous blood specimen / Unknown 05/04/2024 12:27 PM EDT 05/04/2024 1:01 PM EDT us Sarah Verduzco DO LAB BLOOD ORDERABLES Final R esult [facility] [address] [place] [address] [phone] from Last 3 Months or Most Recently Relevant to Health Maintenance Insurance [facility] Member Subscriber Plan / Payer (Ef fective 2016-Present) Name:Miryam Fan Relation to Subscriber:Self Name:Miryam Fan Payer ID:Not on file Group ID:[id number] Type:Not on file Address: [address] CARE < 65 Care Teams Compensation Advisor Relationship Specialty Start Date End Date Sarah Verduzco DO [address] [place] [id number] PCP - General Family Medicine 11/21/15
--- OUTSIDE RECORDS SUMMARY | 2025-08-23 18:25 | XMS_ITS | Encounter Summary ---
Author Organization [employer] Address [address] [facility] 7t [place] [address] Care Team Providers Care Er Tech Name Role Phone Sarah Verduzco DO Primary Care Provider [phone]- [phone] Reason for Visit * Reason Comments Med Refill Encounter Details Date Type Department Care Team ([facility] Contact Info) Description 08/21/2024 Refill [facility] MEDICINE [address] [place], [place] [phone] Sarah Verduzco DO [address] [place], [place] [phone] Social History Tobacco Use Types Packs/Day Years [...] Description 09/21/2025 9:00 AM EST Clinical Support [facility] MEDICINE [address] [place] [address] Lauryn Cunningham RN 01/26/2026 11:00 AM EDT Office Visit [facility] OPTOMETRY [address] [place] [address] Fantasma, Cindy, OD [address] [place] [address] documented as of this encounter Visit Diagnoses Not on filedocumented in this encounter Additional Health Concerns Assessment Noted Time PHQ-9 Depression Total Score: 11 024 10:42 AM EDT documented as of this encounter Care Teams Er Tech Relationship Specialty Start Date End Date Sarah Verduzco DO [address] [place] [address] PCP - General Family Medicine 11/21/15 documented as of this encounter
--- OUTSIDE RECORDS SUMMARY | 2025-08-23 18:29 | XMS_ITS | Encounter Summary ---
Author Organization [employer] Address [address] [facility] 7[address] [place] [address] Care Team Providers Care Coordinator Of Online Programs Name Role Phone Sarah Verduzco DO Primary Care Provider [phone] Reason for Visit * Reason Comments Med Refill Encounter Details Date Type Department Care Team ([facility] Contact Info) Description 01/29/2024 Refill [facility] [address] [place], [place] [phone] Sarah Verduzco DO [address] [place], [place] [phone] Social History Tobacco Use Types Packs/Day Years [...] Description 09/21/2025 9:00 AM EST Clinical Support [facility] [address] [place], [place] [phone] Lauryn Cunningham, LUISITO 01/26/2026 11:00 AM EDT Office Visit [facility] OPTOMETRY [address] [place] [address] Fantasma, Cindy, OD [address] [place] [address] documented as of this encounter Visit Diagnoses Not on filedocumented in this encounter Additional Health Concerns Assessment Noted Time PHQ-9 Depression Total Score: 24 023 8:54 AM EDT documented as of this encounter Care Teams Coordinator Of Online Programs Relationship Specialty Start Date End Date Sarah Verduzco DO [address] [place] [address] PCP - General Family Medicine 11/21/15 documented as of this encounter
--- OUTSIDE RECORDS SUMMARY | 2025-08-23 18:31 | XMS_ITS | Encounter Summary ---
Author Organization [employer] Address [address] [facility] 7t [place] [address] Care Team Providers Care House Sitter Name Role Phone Sarah Verduzco DO Primary Care Provider [phone] Reason for Visit * Reason Onset Date Comments Appointment Request 04/04/2024 Encounter Details Date Type Department Care Team ([facility] Contact Info) Description 04/04/[address] [facility] MEDICINE [address] [place], [place] [phone] Sarah Verduzco DO [address] [place], [place] [phone] Appointment Request Social History Tobacco Use Types [...] management appt 04/05. Please contact pt at [phone]. documented in this encounter Plan of Treatment Upcoming Encounters Date Type Department Care Team (Late st Contact Info) Description 09/21/2025 9:00 AM EST Clinical Support [facility] MEDICINE [address] [place] [address] Lauryn Cunningham, LUISITO 01/26/2026 11:00 AM EDT Office Visit [facility] OPTOMETRY [address] [place] [address] Fantasma, Cindy, OD [address] [place] [address] documented as of this encounter Visit Diagnoses Not on filedocumented in this encounter Additional Health Concerns Assessment Noted Time PHQ-9 Depression Total Score: 24 023 8:54 AM EDT documented as of this encounter Care Teams House Sitter Relationship Specialty Start Date End Date Sarah Verduzco DO [address] [place] [address] PCP - General Family Medicine 11/21/15 documented as of this encounter
--- OUTSIDE RECORDS SUMMARY | 2025-08-23 18:31 | XMS_ITS | Encounter Summary ---
Author Organization [employer] Address [address] [facility] 7t [place] [address] Care Team Providers Care Accelerator Operator Name Role Phone Sarah Verduzco DO Primary Care Provider [phone] Reason for Visit * Reason Comments Med Refill Encounter Details Date Type Department Care Team ([facility] Contact Info) Description 03/31/2024 Refill [facility] MEDICINE [address] [place], [place] [phone] Sarah Verduzco DO [address] [place], [place] [phone] Social History Tobacco Use Types Packs/Day Years [...] Description 09/21/2025 9:00 AM EST Clinical Support [facility] MEDICINE [address] [place], [place] [phone] Lauryn Cunningham, LUISITO 01/26/2026 11:00 AM EDT Office Visit [facility] OPTOMETRY [address] [place] [address] Fantasma, Cindy, OD [address] [place] [address] documented as of this encounter Visit Diagnoses Not on filedocumented in this encounter Additional Health Concerns Assessment Noted Time PHQ-9 Depression Total Score: 24 023 8:54 AM EDT documented as of this encounter Care Teams Accelerator Operator Relationship Specialty Start Date End Date Sarah Verduzco DO [address] [place] [address] PCP - General Family Medicine 11/21/15 documented as of this encounter
--- OUTSIDE RECORDS SUMMARY | 2025-08-23 18:32 | XMS_ITS | Encounter Summary ---
Author Organization [employer] Address [address] [facility] 7t [place] [address] Care Team Providers Care Nursery Teacher Name Role Phone Sarah Verduzco DO Primary Care Provider [phone] Reason for Visit * Reason Comments Med Refill Encounter Details Date Type Department Care Team ([facility] Contact Info) Description 04/06/2024 Refill [facility] MEDICINE [address] [place], [place] [phone] Sarah Verduzco DO [address] [place], [place] [phone] Social History Tobacco Use Types Packs/Day Years [...] Description 09/21/2025 9:00 AM EST Clinical Support [facility] MEDICINE [address] [place], [place] [phone] Lauryn Cunningham, LUISITO 01/26/2026 11:00 AM EDT Office Visit [facility] OPTOMETRY [address] [place] [address] Fantasma, Cindy, OD [address] [place] [address] documented as of this encounter Visit Diagnoses Not on filedocumented in this encounter Additional Health Concerns Assessment Noted Time PHQ-9 Depression Total Score: 24 023 8:54 AM EDT documented as of this encounter Care Teams Nursery Teacher Relationship Specialty Start Date End Date Sarah Verduzco DO [address] [place] [address] PCP - General Family Medicine 11/21/15 documented as of this encounter
--- OUTSIDE RECORDS SUMMARY | 2025-08-23 18:32 | XMS_ITS | Encounter Summary ---
Author Organization [employer] Address [address] [facility] [address] [place] [address] Care Team Providers Care Nutrition Worker Name Role Phone Sarah Verduzco DO Primary Care Provider [phone]- [phone] Reason for Visit * Reason Comments Med Refill Encounter Details Date Type Department Care Team ([facility] Contact Info) Description 12/19/2022 Refill [facility] MEDICINE [address] [place] [address] Sarah Verduzco DO [address] [place] [address] Social History Tobacco Use Types Packs/Day Years [...] Department Care Team (Late Contact Info) Description 09/21/2025 9:00 AM EST Clinical Support [facility] MEDICINE [address] [place] [address] Lauryn Cunningham RN 01/26/2026 11:00 AM EDT Office Visit [facility] OPTOMETRY [address] [place] [address] Cindy Meek, OD [address] [place] [address] documented as of this encounter Visit Diagnoses Not on filedocumented in this encounter Care Teams Nutrition Worker Relationship Specialty Start Date End Date Sarah Verduzco DO [address] [place] [address] PCP - General Family Medicine 11/21/15 documented as of this encounter
--- OUTSIDE RECORDS SUMMARY | 2025-08-23 18:32 | XMS_ITS | Clinical Summary ---
Author Organization [facility] Address [address] [place] [address] Phone Care Team Providers Care Security Patrol Driver Name Role Phone Sarah Verduzco Primary Care Provider +1- [phone] Allergies Active Allergy Reactions Criticality Noted Date [...] HOURS NEEDED FOR NASAL CONGESTION 3 Active capsaicin cream (CAPZASIN-HP) 0.1 % cream cream APPLY THIN LAYER BY TOPICAL ROUTE UP TO 4 TIMES DAILY FOR PAIN. 5 Active diphenhydrAMINE (Banophen) 25 mg tablet PLEASE SEE ATTACHED FOR DETAILED DIRECTIONS Active mesalamine (APRISO) 0.375 gram 24 hr capsule TAKE 4 CAPSULES ORALLY EVERY MORNING FOR 90 DAYS 5 Active methocarbamoL (ROBAXIN) 750 mg tablet TAKE 1 TABLET (750 MG) BY MOUTH IF NEEDED IN THE MORNING, AT NOON, AND AT BEDTIME FOR MUSCLE SPASMS. Active Asmanex HFA 100 mcg/actuation HFA aerosol inhaler inhaler inhale 1 puff (100 mcg) 2 times daily. 5 Active nitrofurantoin, macrocrystal-mo nohydrate, (MACROBID) 100 mg capsule TAKE 1 CAPSULE BY MOUTH 2 TIMES A DAY MUST ADMINISTER WITH A MEAL/FOOD Active ofloxacin (OCUFLOX) 0.3 % ophthalmic solution INSTILL ONE DROP INTO THE RIGHT EYE 4 TIMES A DAY STARTING 3 DAYS PRIOR TO SURGERY AND CONTINUING. Active lidocaine (XYLOCAINE) 5 % ointment Apply topically 3 times daily as needed. 5 03/07/20 26 Active metroNIDAZOLE (FLAGYL) 500 mg tablet take 1 tablet by mouth 3 times daily for 10 days 5 Active Active Problems Problem Noted Date Diagnosed Date Myofascial pain 08/04/2024 Low back pain radiating to left leg 08/04/2024 Assessment & Plan (07/07/2025 4:18 PM EDT): She describes persistent and worsening low back pain that radiates down the left lateral thigh. Her main pain is in the lower lumbar spine and tailbone, worse with sitting and standing, walking. About 1 to 2 months ago her pain was so bad she had to drag herself out of bed. She ended up going to urgent care, was prescribed prednisone, which helped only temporarily. Pain would be bad with bending and lifting so she avoids these activities. There is minimal cleaning at this point due to her back pain. If she does any yard work she states she suffers afterward with severe back pain. She rates her low back pain 6-10/10. She wears lidocaine patches on the low back, uses heat or soaks in hot water. She tried acupuncture but it was too painful. She tried aquatic physical therapy 5 months ago but felt it was not helping. She tries to walk daily for exercise. She states she is having a hard time managing the pain, is affecting her daily life. Prior lumbar spine MRI 07/02/2024 [facility], showed left L5-S1 facet disease, some loss of disc height at L4-5, type II Modic changes L3, L4. Patient will need updated MRI lumbar spine to rule out nerve root compression causing left leg pain and to check for Modic changes that might benefit from Intracept procedure for vertebrogenic back pain. I gave patient educational video to watch regarding Intracept procedure. She does describe some of the classic symptoms for vertebrogenic back pain with lifting, bending, sitting and activity. We will have her follow-up after MRIs completed. All questions answered. Assessment & Plan (08/04/2024 3:49 PM EST): [...] study, she states it was done at [facility] neurology, we called to have it faxed over, it is dated 09/09/2023 and showed normal motor and sensory nerve conduction study. Normal EMG except may suggest mild chronic L5 radiculopathy. She also had lumbar spine MRI 07/02/2024 at [facility], there is no official report from radiology. [...] back for MRI report on Thursday. Ms. Barbosa has low back pain, negative hip mechanical [...] opioids 07/07/2024 Overview (08/04/2024): Dx: Rx: Last [employer] agreement: Tier II (visit every 3 months) [...] for an MRI of the cervical spine. Assessment & Plan (07/07/2025 4:13 PM EDT): s/p C6-7 ACDF with plating on 08/20/2017. When we saw patient in the office 08/04/2024, We reviewed the images of her prior C-spine MRI from [facility] 02/26/2024 that showed solid arthrodesis C6-7, right disc osteophyte C5-6, left paracentral focal disc osteophyte C4-5 abutting the ventral cord, no signal change in the spinal cord. Dr. Pollock had mentioned possible C4-5, C5-6 ACDF with plating if she did not get better with conservative treatment. Patient states her neck pain ranges 5-7/10, worse on the left side, wears lidocaine patches on the back of her neck. We will get updated C-spine MRI and have her follow-up in the office with Dr. Pollock, see if she recommends any surgical intervention. Chronic gastroesophageal reflux disease 11/14/19 18 Nonintractable chronic migraine 11/13/2017 Hyperlipidemia 11/05/2017 Insomnia 11/05/2017 Major depression, recurrent, chronic 11/05/2017 Gastric reflux 11/05/2017 Cervical spondylosis with radiculopathy 08/03/20 17 Overview (07/29/2024): Last Assessment & Plan: Ms. Barbosa is well-known to me from a C6-7 [...] Review of the cervical spine MRI at [place] dated 02/26/2024 shows a solid arthrodesis at [...] images of her prior C-spine MRI from [facility] 02/26/2024 that showed solid arthrodesis C6-7, right [...] Encounters Date Type Department Care Team Description 07/25/2025 Results Follow-Up Neurosurgery [address] [phone] Mimi Newsome PA 07/25/2025 Telephone Neurosurgery [facility] [address] [phone] Mimi Newsome PA 07/19/2025 2:33 PM EST - 07/19/2025 11:59 PM EST Hospital Encounter [facility] MRI [address] [place] [phone] Low back pain radiating to left leg Discharge Disposition: Home or Self Care 07/19/2025 2:06 PM EST - 07/19/2025 11:59 PM EST Hospital Encounter [facility] MRI [address] [place] [phone] Neck pain Discharge Disposition: Home or Self Care 07/07/2025 3:00 PM EDT Office Visit Neurosurgery [facility] [address] [phone] Mimi Newsome PA Neck pain (Primary Dx); Low back pain radiating to left leg 06/28/2025 Telephone Neurosurgery [facility] [address] [phone] Gretel Gamez MA from Last 3 Months Immunizations Immunization Administration Dates Next Due Tdap Tetanus diptheria acell ular pertussis (Boostrix; Adacel) 7yo and older 12/13/2022,06/10/2022 Surgical History Surgery Date Site/Laterality Comments HYSTERECTOMY PROCEDURE: HISTORICAL HYSTERECTOMY TUBAL LIGATION PROCEDURE: HISTORICAL TUBAL LIGATION CHOLECYSTECTOMY PROCEDURE: TN LAPAROSCOPY SURG CHOLECYSTECTOMY EYE SURGERY PROCEDURE: HISTORICAL [...] on file Sexual Orientation Not on file Last Filed Vital Signs Vital Sign Reading Time Taken Comments Blood Pressure - - Pulse - - Temperature - - Respiratory Rate - - Oxygen Saturation - - Inhaled Oxygen Concentration - - Weight 56.7 kg (125 lb) 07/07/2025 3:12 PM EDT Height 149.9 cm (4' 11 ) 07/07/2025 3:12 PM EDT Body Mass Index 25.25 07/07/2025 3:12 PM EDT Plan of Treatment Health Maintenance Due Date Last Done Comments Breast Cancer Screening 1966 Colorectal Cancer Screening: Colonoscopy 1966 Drug Screen 1966 Non-Opioid Controlled Substance Agreement 1966 Hepatitis A Vaccines (1 of 2 - Risk 2-dose series) 1985 Hepatitis B Vaccines (1 of 3 - 19+ 3-dose series) 1985 Pneumococcal Vaccine: 50+ Years (1 of 2 - PCV) 1985 Cervical Cancer Screening: P ap Smear 12/27/1987 RSV Immunization Adult Patients (1 - Risk 50-74 years 1-dose series) 2016 Zoster Vaccines (1 of 2) 2016 Medicare Annual Wellness Visit 08/24/2022 Social Influencers of Health Screening 08/24/2022 Depression Screening 09/14/2024 COVID-19 Vaccine (3 - 2024-2 6 season) 2025 02/01/2021, 01/04/2021 Influenza Vaccine (#1) 2025 Cholesterol Screening (Lipid [...] Procedure Name Priority Date/Time Associated Diagnosis Comments MR LUMBAR SPINE WO CONTRAST Routine 07/19/2025 3:19 PM EST Low back pain radiating to left leg MR CERVICAL SPINE WO CONTRAST Routine 07/19/2025 2:48 PM EST Neck pain from Last 3 Months Results * MR Lumbar Spine wo Contrast (07/19/2025 3:19 PM EST) Anatomical Region Laterality Modality L-spine, Spine Magnetic Resonan ce 07/27/2025 3:53 AM EST Impressions 07/27/2025 4:00 AM EST Multilevel lumbar spondylosis, as above, most prominent at L3-L4, L4-L5 and L5- S1, similar to prior. -------- FINAL REPORT -------- Dictated By: Vivien Cadena Dictated Date: 07/27/2025 03:53 ET Assigned Physician: Vivien Cadena Reviewed and Electronically Signed By: Vivien Cadena Signed Date: 07/27/2025 04:00 ET Workstation ID: [id number] Transcribed By: Self Edit Transcribed Date: 07/27/2025 03:53 ET Narrative 07/27/2025 4:00 AM EST INDICATION: Low back pain, left leg pain COMPARISON: MRI of the lumbar spine from [facility] dated June 2024 TECHNIQUE: Multiplanar, multisequence MRI was performed of the lumbar spine without IV contrast. FINDINGS: Study assumes 5 lumbar type vertebral bodies. Minimal grade 1 anterolisthesis of L3 on L4 and L4 on L5, similar to prior. Mild left convex curvature of the lumbar spine. Conus terminates at L2-L3. Bone marrow signal is unremarkable. 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 Hemangioma at S1. Visualized cord signal is unremarkable. Multilevel disc desiccation. Specific findings are seen at the following levels: T12-L1:No significant spinal canal stenosis or neural foraminal narrowing on sagittal view L1-L2:No significant spinal canal stenosis or neural foraminal narrowing L2-L3:No significant spinal canal stenosis or neural foraminal narrowing L3-L4:Mild diffuse disc bulge with ligamentum flavum infolding and facet arthropathy which effaces the ventral thecal sac without significant spinal canal stenosis. Mild left-sided neural foraminal narrowing, similar to prior. L4-L5:Diffuse disc bulge with ligamentum flavum infolding and facet arthropathy which effaces the ventral thecal sac without significant spinal canal stenosis. Mild bilateral neural foraminal narrowing; similar to prior. Tiny annular fissure. L5-S1:Diffuse disc bulge with facet arthropathy and ligamentum flavum infolding (eccentric to the left) which results in moderate left-sided neural foraminal narrowing with touching of the traversing left S1 nerve root; similar to prior. No significant spinal canal stenosis. Miscellaneous: T2 hyperintense lesions in both kidneys which statistically represent cysts. Procedure Note Vivien Cadena MD - 07/27/2025 INDICATION: Low back pain, left leg pain COMPARISON: MRI of the lumbar spine from [facility] datedOct2023 TECHNIQUE: Multiplanar, multisequence MRI was performed of the lumbarspine without IV contrast. FINDINGS: Study assumes 5 lumbar type vertebral bodies. Minimal grade 1anterolisthesis of L3 on L4 and L4 on L5, similar to prior. Mild leftconvex curvature of the lumbar spine. Conus terminates at L2-L3. [place] signal is unremarkable. Tarlov cyst at S2- S3. Hemangioma at S1.Visualized cord signal is unremarkable. Multilevel disc desiccation.Specific findings are seen at the following levels: T12-L1:No significant spinal canal stenosis or neural foraminal narrowingon sagittal view L1-L2:No significant spinal canal stenosis or neural foraminal narrowing L2-L3:No significant spinal canal stenosis or neural foraminal narrowing L3-L4:Mild diffuse disc bulge with ligamentum flavum infolding and facetarthropathy which effaces the ventral thecal sac without significantspinal canal stenosis. Mild left-sided neural foraminal narrowing,similar to prior. L4-L5:Diffuse disc bulge with ligamentum flavum infolding and facetarthropathy which effaces the ventral thecal sac without significantspinal canal stenosis. Mild bilateral neural foraminal narrowing; similarto prior. Tiny annular fissure. L5-S1:Diffuse disc bulge with facet arthropathy and ligamentum flavuminfolding (eccentric to the left) which results in moderate left-sidedneural foraminal narrowing with touching of the traversing left S1 nerveroot; similar to prior. No significant spinal canal stenosis. Miscellaneous: T2 hyperintense lesions in both kidneys whichstatistically represent cysts. IMPRESSION: Multilevel lumbar spondylosis, as above, most prominent at L3-L4, L4-L5and L5- S1, similar to prior. -------- FINAL REPORT -------- Dictated By: Vivien Cadena Dictated Date: 07/27/2025 03:53 ET Assigned Physician: Vivien Cadena Reviewed and Electronically Signed By: Vivien Cadena Signed Date: 07/27/2025 04:00 ET Workstation ID: [id number] Transcribed By: Self Edit Transcribed Date: 07/27/2025 03:53 ET us Mimi GLOVER IMG MRI PROCEDURES Final R esult * MR Cervical Spine wo Contrast (07/19/2025 2:48 PM EST) Anatomical Region Laterality Modality C-spine, Spine Magnetic Resonan ce 07/24/2025 3:25 PM EST Impressions 07/24/2025 3:57 PM EST Interval progression of degenerative changes with increased, mild to moderate spinal canal stenosis at C4-5 and C5-6. Increased mass effect on the left ventral cord at C4-5 without cord signal abnormality. -------- FINAL REPORT -------- Dictated By: JABIER BISHOP Dictated Date: 07/24/2025 15:25 ET Assigned Physician: JABIER BISHOP Reviewed and Electronically Signed By: JABIER BISHOP Signed Date: 07/24/2025 15:57 ET Workstation ID: [id number] Transcribed By: Self Edit Transcribed Date: 07/24/2025 15:25 ET Narrative 07/24/2025 3:57 PM EST PROCEDURE: Cervical spine MRI INDICATION: Pain, fusion TECHNIQUE: Multiplanar, multisequence MRI of the Cervical spine Without contrast. COMPARISON: 12/31/2021 FINDINGS: Unchanged straightening of the normal cervical lordosis. Anterior discectomy with fusion at C6-7. Degenerative loss of normal disc height and signal at C4-5 and C5-6 as well as at C7-T1. No fracture or suspicious marrow replacing lesion. Mild degenerative cervical facet arthritis at C4-5, C5-6, and C7-T1. Mild mass effect upon left ventral cord at C4-5 related to disc protrusion. Cord signal is normal. No epidural collection or mass is seen within the spinal canal. Foramen magnum is normal. Paraspinal muscles are normal. Findings by level: C2-C3: No focal disc protrusion, foraminal stenosis, or spinal canal stenosis. C3-C4: No focal disc protrusion, foraminal stenosis, or spinal canal stenosis. C4-C5: Posterior disc osteophyte complex with superimposed left paracentral protrusion, new from prior. Increased, moderate spinal canal stenosis. No foraminal stenosis. C5-C6: Posterior disc osteophyte complex with right uncovertebral spurring resulting in mild spinal canal stenosis and mild right foraminal stenosis, increased compared to prior. C6-C7: Discectomy and fusion. No foraminal or spinal canal stenosis C7-T1: Bilateral uncovertebral spurring. No foraminal or spinal canal stenosis Procedure Note Jabier Bishop MD - 07/24/2025 PROCEDURE: Cervical spine MRI INDICATION: Pain, fusion TECHNIQUE: Multiplanar, multisequence MRI of the Cervical spine Withoutcontrast. COMPARISON: 12/31/2021 FINDINGS: Unchanged straightening of the normal cervical lordosis. Anterior discectomy with fusion at C6-7. Degenerative loss of normal disc height and signal at C4-5 and C5-6 aswell as at C7-T1. No fracture or suspicious marrow replacing lesion. Mild degenerative cervical facet arthritis at C4-5, C5-6, and C7-T1. Mild mass effect upon left ventral cord at C4-5 related to discprotrusion. Cord signal is normal. No epidural collection or mass isseen within the spinal canal. Foramen magnum is normal. Paraspinal muscles are normal. Findings by level: C2-C3: No focal disc protrusion, foraminal stenosis, or spinal canalstenosis. C3-C4: No focal disc protrusion, foraminal stenosis, or spinal canalstenosis. C4-C5: Posterior disc osteophyte complex with superimposed leftparacentral protrusion, new from prior. Increased, moderate spinal canalstenosis. No foraminal stenosis. C5-C6: Posterior disc osteophyte complex with right uncovertebral spurringresulting in mild spinal canal stenosis and mild right foraminal stenosis,increased compared to prior. C6-C7: Discectomy and fusion. No foraminal or spinal canal stenosis C7-T1: Bilateral uncovertebral spurring. No foraminal or spinal canalstenosis IMPRESSION: Interval progression of degenerative changes with increased, mild tomoderate spinal canal stenosis at C4-5 and C5-6. Increased mass effect onthe left ventral cord at C4-5 without cord signal abnormality. -------- FINAL REPORT -------- Dictated By: JABIER BISHOP Dictated Date: 07/24/2025 15:25 ET Assigned Physician: JABIER BISHOP Reviewed and Electronically Signed By: JABIER BISHOP Signed Date: 07/24/2025 15:57 ET Workstation ID: [id number] Transcribed By: Self Edit Transcribed Date: 07/24/2025 15:25 ET Mimi GLOVER IMG MRI PROCEDURES Final R esult from Last 3 Months Insurance Member Subscriber Plan / Payer (Ef fective 2016-Present) Name:MIRYAM BARBOSA Relation to Subscriber:Self Name:Miryam Barbosa Payer ID:[id number] Group ID:[id number] Type:Not on file Address: [facility] [address] [address] Care Teams Security Patrol Driver Relationship Specialty Start Date End Date Sarah Verduzco DO [address] [place] [address] PCP - General Internal Medicine 02/09/18
--- OUTSIDE RECORDS SUMMARY | 2025-08-23 18:32 | XMS_ITS | Encounter Summary ---
Author Organization [employer] Address [address] [facility] [address] [place] [address] Care Team Providers Care Pack Changer Name Role Phone Sarah Verduzco DO Primary Care Provider Encounter Details Date Type Department Care Team (Late Contact Info) Description 12/24/2022 Orders Only [facility] MEDICINE [address] [place] [address] Sarah Verduzco DO [address] [place] [address] Social History Tobacco Use Types Packs/Day Years [...] 9:00 AM EST Clinical Support [facility] [address] [place] [address] Lauryn Cunningham, LUISITO 01/26/2026 11:00 AM EDT Office Visit [facility] OPTOMETRY [address] [place] [address] Cindy Meek, OD [address] [place] [address] documented as of this encounter Visit Diagnoses Not on filedocumented in this encounter Care Teams Pack Changer Relationship Specialty Start Date End Date Sarah Verduzco DO [address] [place] [address] PCP - General Family Medicine 11/21/15 documented as of this encounter
--- OUTSIDE RECORDS SUMMARY | 2025-08-23 18:32 | XMS_ITS | Encounter Summary ---
Author Organization [employer] Address [address] [facility] [address] [place] [address] Care Team Providers Care Jukebox Routeman Name Role Phone Sarah Verduzco DO Primary Care Provider [phone] Encounter Details Date Type Department Care Team ([facility] st Contact Info) Description 12/22/2023 Orders Only [facility] MEDICINE [address] [place], [place] [phone] Provider, MD Tristan Social History Tobacco Use [...] Description 09/21/2025 9:00 AM EST Clinical Support [facility] [address] [place] [address] Lauryn Cunningham, LUISITO 01/26/2026 11:00 AM EDT Office Visit [facility] OPT[facility] [address] [place], [place] [phone] Cindy Meek, OD [address] [place] [address] documented as of this encounter Procedures Procedure [...] documented as of this encounter Care Teams Jukebox Routeman Relationship Specialty Start Date End Date Sarah Verduzco DO [address] [place] [address] PCP - General Family Medicine 11/21/15 documented as of this encounter
--- OUTSIDE RECORDS SUMMARY | 2025-08-23 18:32 | XMS_ITS | Encounter Summary ---
Author Organization [employer] Address [address] [facility] [address] [place] [address] Care Team Providers Care Inspector Packer Name Role Phone Sarah Verduzco DO Primary Care Provider [phone]- [phone] Reason for Visit * Reason Onset Date Comments Nurse Triage 11/16/2023 Encounter Details Date Type Department Care Team ([facility] st Contact Info) Description 11/16/[address] [facility] [address] [place], [place] [phone] Sarah Verduzco DO [address] [place], [place] [phone] Nurse Triage Social History Tobacco Use Types [...] the past 12 months, has t he [employer], gas, oil or water [employer] threatened to shut off services in your [...] this time. Pt [facility]'t [facility]to [facility] to [facility] . Pt agrees with this plan . [...] Description 09/21/2025 9:00 AM EST Clinical Support [facility] [address] [place] [address] Lauryn Cunningham RN 01/26/2026 11:00 AM EDT Office Visit [facility] OPTOM[facility] [address] [place], [place] [phone] Cindy Meek, ALBINA [address] [place] [address] documented as of this encounter Visit Diagnoses Not on filedocumented in this encounter Additional Health Concerns Assessment Noted Time PHQ-9 Depression Total Score: 24 023 8:54 AM EDT documented as of this encounter Care Teams Inspector Packer Relationship Specialty Start Date End Date Sarah Verduzco DO [address] [place] [address] PCP - General Family Medicine 11/21/15 documented as of this encounter
--- OUTSIDE RECORDS SUMMARY | 2025-08-23 18:32 | XMS_ITS | Encounter Summary ---
Author Organization [employer] Address [address] [facility] [address] [place] [address] Care Team Providers Care Transport Company Manager Name Role Phone Sarah Verduzco DO Primary Care Provider +1- [phone] Reason for Visit * Reason Comments Med Refill Encounter Details Date Type Department Care Team ([facility] Contact Info) Description 12/29/2024 Refill [facility] MED[facility]INE [address] [place], [place] [phone] Sarah Verduzco DO [address] [place], [place] [phone] Social History Tobacco Use Types Packs/Day Years [...] 9:00 AM EST Clinical Support [facility] MED[facility]INE [address] [place] [address] Lauryn Cunningham RN 01/26/2026 11:00 AM EDT Office Visit [facility] OPTOMETRY [address] [place] [address] Fantasma, Icndy, OD [address] [place] [address] documented as of this encounter Visit Diagnoses Not on filedocumented in this encounter Additional Health Concerns Assessment Noted Time PHQ-9 Depression Total Score: 20 025 11:28 AM EST documented as of this encounter Care Teams Transport Company Manager Relationship Specialty Start Date End Date Sarah Verduzco DO [address] [place] [address] PCP - General Family Medicine 11/21/15 documented as of this encounter
--- OUTSIDE RECORDS SUMMARY | 2025-08-23 18:33 | XMS_ITS | Encounter Summary ---
Author Organization [employer] Address [address] [facility] [address] [place] [address] Care Team Providers Care Product Craftsman Name Role Phone Sarah Verduzco DO Primary Care Provider +1- [phone] Reason for Visit * Reason Comments Med Refill Encounter Details Date Type Department Care Team (Late Contact Info) Description 10/21/2022 Refill [facility] MEDICINE [address] [place], [place] [phone] Елена Oslon MD [address] [place], [place] [phone] Sinusitis, unspecified chronicity, unspecified location Social History [...] Description 09/21/2025 9:00 AM EST Clinical Support [facility] MEDICINE [address] [place] [address] Lauryn Cunningham RN 01/26/2026 11:00 AM EDT Office Visit [facility] OPTOMETRY [address] [place], [place] [phone] Cindy Meek, OD [address] [place] [address] documented as of this encounter Visit Diagnoses Diagnosis Sinusitis, unspecified chronicity, unspecified location documented in this encounter Care Teams Product Craftsman Relationship Specialty Start Date End Date Sarah Verduzco DO [address] [place] [address] PCP - General Family Medicine 11/21/15 documented as of this encounter
--- OUTSIDE RECORDS SUMMARY | 2025-08-23 18:33 | XMS_ITS | Encounter Summary ---
Author Organization [employer] Address [address] [facility] [address] [place] [address] Care Team Providers Care Maintenance Repairer Name Role Phone Sarah Verduzco DO Primary Care Provider +1- [phone] Reason for Visit * Reason Onset Date Comments Med Refill 10/20/2022 Encounter Details Date Type Department Care Team (Late Contact Info) Description 10/20/2022 Telephone [facility] MEDICINE [address] [place], [place] [phone] Sarah Verduzco DO [address] [place], [place] [phone] Med Refill Social History Tobacco Use Types [...] Description 09/21/2025 9:00 AM EST Clinical Support [facility] MEDICINE [address] [place] [address] Lauryn Cunningham RN 01/26/2026 11:00 AM EDT Office Visit [facility] OPTOMETRY [address] [place] [address] Cindy Meek, OD 230 [place] [address] documented as of this encounter Visit Diagnoses Not on filedocumented in this encounter Care Teams Maintenance Repairer Relationship Specialty Start Date End Date Sarah Verduzco DO [address] [place] [address] PCP - General Family Medicine 11/21/15 documented as of this encounter
--- OUTSIDE RECORDS SUMMARY | 2025-08-23 18:33 | XMS_ITS | Encounter Summary ---
Author Organization [employer] Address [address] [facility] 7t [place] [address] Care Team Providers Care Emergency Department Name Role Phone Sarah Verduzco DO Primary Care Provider +1- [phone] Reason for Visit * Reason Comments Med Refill Encounter Details Date Type Department Care Team ([facility] Contact Info) Description 02/06/2023 Refill [facility] [address] [place] [address] [phone] Sarah Verduzco DO [address] [place] [address] [phone] Chronic GERD Social History Tobacco Use Types [...] Upcoming Encounters Date Type Department Care Team ([facility] Contact Info) Description 09/21/2025 9:00 AM EST Clinical Support [facility] [address] [place] [address] [phone] Lauryn Cunningham, RN 01/26/2026 11:00 AM EDT Office Visit [facility] OPTOMETRY [address] [place], [place] [phone] Cindy Meek, ALBINA 230 [place] [address] documented as of this encounter Visit Diagnoses Diagnosis Chronic GERD documented in this encounter Additional Health Concerns Assessment Noted Time PHQ-9 Depression Total Score: 16 023 10:36 AM EDT documented as of this encounter Care Teams Emergency Department Relationship Specialty Start Date End Date Sarah Verduzco DO 230 [place] [address] PCP - General Family Medicine 11/21/15 documented as of this encounter
--- OUTSIDE RECORDS SUMMARY | 2025-08-23 18:33 | XMS_ITS | Encounter Summary ---
Author Organization [employer] Address [address] [facility] [address] [address] Care Team Providers Care Vacuum Cleaner Repair Person Name Role Phone Sarah Verduzco DO Primary Care Provider +1- [phone] Reason for Visit * Reason Comments Med Refill Encounter Details Date Type Department Care Team ([facility] Contact Info) Description 12/04/2022 Refill [facility] MEDICINE [address] [place] [address] Sarah Verduzco DO 230 [place] [address] Social History Tobacco Use Types Packs/Day Years [...] Description 09/21/2025 9:00 AM EST Clinical Support [facility] MEDICINE 230 [place] [address] Lauryn Cunningham RN 01/26/2026 11:00 AM EDT Office Visit [facility] OPTOMETRY [address] [place] [address] Cindy Meek, OD 230 [place] [address] documented as of this encounter Visit Diagnoses Not on filedocumented in this encounter Care Teams Vacuum Cleaner Repair Person Relationship Specialty Start Date End Date Sarah Verduzco DO 230 [place] [address] PCP - General Family Medicine 11/21/15 documented as of this encounter
--- OUTSIDE RECORDS SUMMARY | 2025-08-23 18:33 | XMS_ITS | Encounter Summary ---
Author Organization [employer] Address 75 [facility] [address] [place] [address] Care Team Providers Care Yard Supervisor Cotton Gin Name Role Phone Sarah Verduzco DO Primary Care Provider +1- [phone] Reason for Visit * Reason Comments Med Refill Encounter Details Date Type Department Care Team (Late Contact Info) Description 10/21/2022 Telephone [facility] MEDICINE 230 [place], [place] [phone] Sarah Verduzco DO 230 [place], [place] [phone] Med Refill Social History Tobacco Use Types [...] Upcoming Encounters Date Type Department Care Team ([facility] Contact Info) Description 09/21/2025 9:00 AM EST Clinical Support [facility] MEDICINE 230 [place] [address] Lauryn Cunningham, LUISITO 01/26/2026 11:00 AM EDT Office Visit [facility] OPTOMETRY [address] [place] [address] Cindy Meek, OD 230 [place] [address] documented as of this encounter Visit Diagnoses Not on filedocumented in this encounter Care Teams Yard Supervisor Cotton Gin Relationship Specialty Start Date End Date Sarah Verduzco DO [address] [place] [address] PCP - General Family Medicine 11/21/15 documented as of this encounter
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
--- OUTSIDE RECORDS SUMMARY | 2025-08-23 18:34 | XMS_ITS | Encounter Summary ---
Author Organization [employer] Address [address] [facility] [address] [place] [address] Care Team Providers Care Jewel Lathe Operator Name Role Phone Sarah Verduzco DO Primary Care Provider +1- [phone] Reason for Visit * Reason Onset Date Comments Nurse Triage 04/20/2023 Encounter Details Date Type Department Care Team ([facility] st Contact Info) Description 04/20/2023 Telephone [facility] MEDICINE [address] [place], [place] [phone] Sarah Verduzco DO 230 [place], [place] [phone] Nurse Triage Social History Tobacco Use Types [...] Description 09/21/2025 9:00 AM EST Clinical Support [facility] MEDICINE [address] [place] [address] Lauryn Cunningham, LUISITO 01/26/2026 11:00 AM EDT Office Visit [facility] OPTOMETRY [address] [place] [address] Cindy Meek, OD 230 [place] [address] documented as of this encounter Visit Diagnoses Not on filedocumented in this encounter Additional Health Concerns Assessment Noted Time PHQ-9 Depression Total Score: 16 023 10:36 AM EDT documented as of this encounter Care Teams Jewel Lathe Operator Relationship Specialty Start Date End Date Sarah Verduzco DO 230 [place] [address] PCP - General Family Medicine 11/21/15 documented as of this encounter
--- OUTSIDE RECORDS SUMMARY | 2025-08-23 18:34 | XMS_ITS | Encounter Summary ---
Author Organization [employer] Address [address] [facility] [address] [place] [address] Care Team Providers Care Senior Loan Officer Name Role Phone Sarah Verduzco DO Primary Care Provider +1- [phone] Reason for Visit * Reason Comments Med Refill Encounter Details Date Type Department Care Team (Late Contact Info) Description 04/19/2023 Refill [facility] MEDICINE [address] [place] [address] Alexa Padgett FNP Chronic bilateral low back [...] Description 09/21/2025 9:00 AM EST Clinical Support [facility] MEDICINE [address] [place] [address] Lauryn Cunningham RN 01/26/2026 11:00 AM EDT Office Visit [facility] OPTOMETRY [address] [place] [address] Cindy Meek, OD 230 [place] [address] documented as of this encounter Visit Diagnoses Diagnosis Chronic bilateral low back pain without sciatica documented in this encounter Additional Health Concerns Assessment Noted Time PHQ-9 Depression Total Score: 16 023 10:36 AM EDT documented as of this encounter Care Teams Senior Loan Officer Relationship Specialty Start Date End Date Sarah Verduzco DO [address] [place] [address] PCP - General Family Medicine 11/21/15 documented as of this encounter
--- OUTSIDE RECORDS SUMMARY | 2025-08-23 18:34 | XMS_ITS | Encounter Summary ---
Author Organization [employer] Address [address] [facility] [address] [place] [address] Care Team Providers Care Home Care Provider Name Role Phone Sarah Verduzco DO Primary Care Provider +1- [phone] Reason for Visit * Reason Comments Med Refill Encounter Details Date Type Department Care Team ([facility] Contact Info) Description 05/29/2025 Refill [facility] MEDICINE [address] [place], [place] [phone] Sarah Verduzco DO 230 [place], [place] [phone] Social History Tobacco Use Types Packs/Day Years [...] Description 09/21/2025 9:00 AM EST Clinical Support [facility] MEDICINE [address] [place] [address] Lauryn Cunningham RN 01/26/2026 11:00 AM EDT Office Visit [facility] OPTOMETRY [address] [place] [address] Fantasma, Cindy, OD 230 [place] [address] documented as of this encounter Visit Diagnoses Not on filedocumented in this encounter Additional Health Concerns Assessment Noted Time PHQ-9 Depression Total Score: 20 025 11:28 AM EST documented as of this encounter Care Teams Home Care Provider Relationship Specialty Start Date End Date Sarah Verduzco DO [address] [place] [address] PCP - General Family Medicine 11/21/15 documented as of this encounter
--- OUTSIDE RECORDS SUMMARY | 2025-08-23 18:34 | XMS_ITS | Encounter Summary ---
Author Organization [employer] Address 75 [facility] [address] [place] [address] Care Team Providers Care Senior Bioinformatics Specialist Name Role Phone Sarah Verduzco DO Primary Care Provider Reason for Visit * Reason Onset Date Comments Medication Question 03/24/2023 Encounter Details Date Type Department Care Team ([facility] Contact Info) Description 03/24/2023 Telephone [facility] MEDICINE [address] [place], [place] [phone] Sarah Verduzco DO [address] [place], [place] [phone] Medication Question Social History Tobacco Use Types [...] used to receive. Please contact pt at [phone] documented in this encounter Plan of Treatment Upcoming Encounters Date Type Department Care Team (Late st Contact Info) Description 09/21/2025 9:00 AM EST Clinical Support [facility] MEDICINE [address] [place] [address] Lauryn Cunningham RN 01/26/2026 11:00 AM EDT Office Visit [facility] OPTOMETRY [address] [place], [place] [phone] Fantasma, Cindy, OD 230 [place] [address] documented as of this encounter Visit Diagnoses Not on filedocumented in this encounter Additional Health Concerns Assessment Noted Time PHQ-9 Depression Total Score: 16 023 10:36 AM EDT documented as of this encounter Care Teams Senior Bioinformatics Specialist Relationship Specialty Start Date End Date Sarah Verduzco DO [address] [place] [address] PCP - General Family Medicine 11/21/15 documented as of this encounter
--- OUTSIDE RECORDS SUMMARY | 2025-08-23 18:34 | XMS_ITS | Encounter Summary ---
Author Organization [employer] Address [address] [facility] [address] [place] [address] Care Team Providers Care Wire Coating Operator Metal Name Role Phone Sarah Verduzco DO Primary Care Provider +1- [phone] Reason for Visit * Reason Comments Med Refill Encounter Details Date Type Department Care Team (Late Contact Info) Description 04/19/2023 Refill [facility] MEDICINE [address] [place] [address] Sarah Verduzco DO [address] [place], [place] [phone] Chronic GERD Social History Tobacco Use Types [...] Description 09/21/2025 9:00 AM EST Clinical Support [facility] MEDICINE 230 [place] [address] Lauryn Cunningham RN 01/26/2026 11:00 AM EDT Office Visit [facility] OPTOMETRY [address] [place] [address] Cindy Meek OD 230 [place] [address] documented as of this encounter Visit Diagnoses Diagnosis Chronic GERD documented in this encounter Additional Health Concerns Assessment Noted Time PHQ-9 Depression Total Score: 16 01/27/ 023 10:36 AM EDT documented as of this encounter Care Teams Wire Coating Operator Metal Relationship Specialty Start Date End Date Sarah Verduzco DO [address] [place] [address] PCP - General Family Medicine 11/21/15 documented as of this encounter
--- OUTSIDE RECORDS SUMMARY | 2025-08-23 18:34 | XMS_ITS | Encounter Summary ---
Author Organization [employer] Address [address] [facility] 7t [place] [address] Care Team Providers Care Power Generation Technician Name Role Phone Sarah Verduzco DO Primary Care Provider +1- [phone] Reason for Visit * Reason Comments Med Refill Encounter Details Date Type Department Care Team ([facility] Contact Info) Description 10/05/2024 Refill [facility] MEDICINE [address] [place], [place] [phone] Sarah Verduzco DO 230 [place], [place] [phone] Social History Tobacco Use Types Packs/Day Years [...] Description 09/21/2025 9:00 AM EST Clinical Support [facility] MEDICINE [address] [place] [address] Lauryn Cunningham RN 01/26/2026 11:00 AM EDT Office Visit [facility] OPTOMETRY [address] [place] [address] Fantasma, Cindy, OD 230 [place] [address] documented as of this encounter Visit Diagnoses Not on filedocumented in this encounter Additional Health Concerns Assessment Noted Time PHQ-9 Depression Total Score: 11 024 10:42 AM EDT documented as of this encounter Care Teams Power Generation Technician Relationship Specialty Start Date End Date Sarah Verduzco DO 230 [place] [address] PCP - General Family Medicine 11/21/15 documented as of this encounter
--- OUTSIDE RECORDS SUMMARY | 2025-08-23 18:34 | XMS_ITS | Encounter Summary ---
Author Organization [employer] Address [address] [facility] [address] [address] Care Team Providers Care German Tutor Name Role Phone Sarah Verduzco DO Primary Care Provider +1- [phone] Reason for Visit * Reason Onset Date Comments Med Refill 03/20/2023 Encounter Details Date Type Department Care Team ([facility] st Contact Info) Description 03/20/2023 Telephone [facility] MEDICINE [address] [place], [place] [phone] Sarah Verduzco DO 230 [place], [place] [phone] Med Refill Social History Tobacco Use Types [...] 50 mg tablet to be sent to [facility]/pharmacy #[id number] -[place], [place] - [address] documented in this encounter Plan of Treatment Upcoming Encounters Date Type Department Care Team (Late st Contact Info) Description 09/21/2025 9:00 AM EST Clinical Support [facility] MEDICINE [address] [place] [address] Lauryn Cunningham, RN 01/26/2026 11:00 AM EDT Office Visit [facility] OPTOMETRY [address] [place] [address] Cindy Meek, ALBINA 230 [place] [address] documented as of this encounter Visit Diagnoses Not on filedocumented in this encounter Additional Health Concerns Assessment Noted Time PHQ-9 Depression Total Score: 16 023 10:36 AM EDT documented as of this encounter Care Teams German Tutor Relationship Specialty Start Date End Date Sarah Verduzco DO 230 [place] [address] PCP - General Family Medicine 11/21/15 documented as of this encounter
--- OUTSIDE RECORDS SUMMARY | 2025-08-23 18:34 | XMS_ITS | Encounter Summary ---
Author Organization [employer] Address 75 [facility] [address]t [place] [address] Care Team Providers Care Erp Manager Name Role Phone Sarah Verduzco DO Primary Care Provider +1- [phone] Reason for Visit * Reason Comments Med Refill Encounter Details Date Type Department Care Team ([facility] Contact Info) Description 05/29/2025 Refill [facility] MEDICINE 230 [place], [place] [phone] Sarah Verduzco DO [address] [place], [place] [phone] Social History Tobacco Use Types Packs/Day Years [...] 9:00 AM EST Clinical Support [facility] MEDICINE [address] [place] [address] Lauryn Cunningham RN 01/26/2026 11:00 AM EDT Office Visit [facility] OPTOMETRY [address] [place] [address] Fantasma, Cindy, OD 230 [place] [address] documented as of this encounter Visit Diagnoses Not on filedocumented in this encounter Additional Health Concerns Assessment Noted Time PHQ-9 Depression Total Score: 20 025 11:28 AM EST documented as of this encounter Care Teams Erp Manager Relationship Specialty Start Date End Date Sarah Verduzco DO [address] [place] [address] PCP - General Family Medicine 11/21/15 documented as of this encounter
--- OUTSIDE RECORDS SUMMARY | 2025-08-23 18:34 | XMS_ITS | Encounter Summary ---
Author Organization [employer] Address [address] [facility] 7[address] [place] [address] Care Team Providers Care Director Phone Name Role Phone Sarah Verduzco DO Primary Care Provider +1- [phone] Reason for Visit * Reason Comments Med Refill Encounter Details Date Type Department Care Team ([facility] Contact Info) Description 06/01/2025 Refill [facility] MEDICINE 230 [place], [place] [phone] Sarah Verduzco DO 230 [place], [place] [phone] Chronic nonintractable headache, unspecified headache type Social [...] Description 09/21/2025 9:00 AM EST Clinical Support [facility] MEDICINE [address] [place] [address] Lauryn Cunningham RN 01/26/2026 11:00 AM EDT Office Visit [facility] OPTOMETRY [address] [place] [address] Fantasma, Cindy, OD 230 [place] [address] documented as of this encounter Visit Diagnoses Diagnosis Chronic nonintractable headache, unspecified headache type documented in this encounter Additional Health Concerns Assessment Noted Time PHQ-9 Depression Total Score: 20 025 11:28 AM EST documented as of this encounter Care Teams Director Phone Relationship Specialty Start Date End Date Sarah Verduzco DO 230 [place] [address] PCP - General Family Medicine 11/21/15 documented as of this encounter
--- OUTSIDE RECORDS SUMMARY | 2025-08-23 18:35 | XMS_ITS | Encounter Summary ---
Author Organization [employer] Address [address] [facility] [address] [place] [address] Care Team Providers Care Pharmacist Per Diem Name Role Phone Sarah Verduzco DO Primary Care Provider [phone] Encounter Details Date Type Department Care Team ([facility] Contact Info) Description 08/23/2025 Orders Only GENERIC EXTERNAL DATA DEPARTMENT [...] AM EDT documented as of this encounter Functional Status * Over the past 2 weeks, how often have you been bothered by any of the following problems? Question Answer Date of Assessment Author Patient Health Questionnaire-2 Score 6 08/14 10:22 AM Stevie Mendez MA * Little interest or pleasure in doing things Answer Date of Assessment Author Nearly every day 08/23/2025 10:22 AM Stevie Mendez MA * Feeling down, depressed, or hopeless Answer Date of Assessment Author Nearly every day 08/23/2025 10:22 AM Stevie Mendez MA * Trouble falling or staying asleep, or sleeping too much Answer Date of Assessment Author Nearly every day 08/23/2025 10:22 AM Stevie Mendez MA * Feeling tired or having little energy Answer Date of Assessment Author More than half the days 08/23/2025 10:22 AM Stevie Mendez MA * Poor appetite or overeating Answer Date of Assessment Author Several days 08/23/2025 10:22 AM Sonal Mendez MA * Feeling bad about yourself - or that you are a failure or have let yourself or your family down Answer Date of Assessment Author Several days 08/23/2025 10:22 AM Sonal Mendez MA * Trouble concentrating on things, such as reading the newspaper or watching television Answer Date of Assessment Author Nearly every day 08/23/2025 10:22 AM Stevie Mendez MA * Moving or speaking so slowly that other people could have noticed? Or the opposite - being so fidgety or restless that you have been moving around a lot more than usual. Answer Date of Assessment Author Not at all 08/23/2025 10:22 AM Sonal Mendez MA * Thoughts that you would be better off or hurting yourself in some way Answer Date of Assessment Author Several days 08/23/2025 10:22 AM Sonal Mendez MA * Patient Health Questionnaire-9 Score Answer Date of Assessment Author 17 08/23/2025 10:22 AM Sonal Mendez MA * Over the last 2 weeks, how often have you been bothered by any of the following problems? Question Answer Date of Assessment Author Feeling nervous, anxious, or on edge 2 08/14 10:22 AM Stevie Mendez MA Not being able to stop or co ntrol worrying 3 08/23/2025 10:22 AM Stevie Mendez M A Worrying too much about diff erent things 3 08/23/2025 10:22 AM Stevie Mendez M A Trouble relaxing 3 08/23/2025 10:22 AM Stevie Mendez MA Being so restless that it is hard to sit still 2 08/23/2025 10:22 AM Stevie Mendez M A Becoming easily annoyed or irritable 2 08/14 10:22 AM Stevie Mendez MA Feeling afraid as if somethi ng awful might happen 3 08/23/2025 10:22 AM Stevie Mendez M A NAVEEN-7 Total Score 18 08/23/2025 10:22 AM Stevie Mendez MA * How difficult have these problems made it for you to do your work, take care of things at home, or get along with other people? Answer Date of Assessment Author Very difficult 08/23/2025 10:22 AM Sonal Mendez MA documented as of this encounter Plan of Treatment Upcoming Encounters Date Type Department Care Team (Late st Contact Info) Description 09/21/2025 9:00 AM EST Clinical Support [facility] [address] [place] [address] Lauryn Cunningham RN 01/26/2026 11:00 AM EDT Office Visit [facility] [address] [place] [address] Cindy Meek, OD [address] [place] [address] documented as of this encounter Procedures Procedure Name Priority Date/Time Associated Diagnosis Comments TSH W/REFLEX TO FT4 Routine 08/23/2025 1 1:38 AM EST documented in this encounter Results * TSH with Reflex to Free T4 (08/23/2025 11:38 AM EST) TSH reflex Free T4 1.06 0.32 - 4.0 uIU/mL [facility] 08/23/2025 11:3 8 AM EST 08/23/2025 2:05 PM EST us Generic External Data Provider LAB BLOOD ORDERAB LES Final Result [facility] [address] [place] [id number] [phone] documented in this encounter Visit Diagnoses Not on filedocumented in this encounter Additional Health Concerns Assessment Noted Time PHQ-9 Depression Total Score: 17 025 10:22 AM EST documented as of this encounter Care Teams Pharmacist Per Diem Relationship Specialty Start Date End Date Sarah Verduzco DO [address] [place] [address] PCP - General Family Medicine 11/21/15 documented as of this encounter
--- OUTSIDE RECORDS SUMMARY | 2025-08-23 18:36 | XMS_ITS | Encounter Summary ---
Author Organization [employer] Address [address] [facility] [address] [place] [address] Care Team Providers Care Health Information Director Name Role Phone Sarah Verduzco DO Primary Care Provider [phone] Encounter Details Date Type Department Care Team (Latest Contact Info) Description 08/23/2025 Travel Social History Tobacco Use Types Packs/Day [...] ntrol worrying 3 08/23/2025 10:22 AM Stevie Mendze M A Worrying too much about diff [...] Description 09/21/2025 9:00 AM EST Clinical Support [facility] [address] [place] [address] Lauryn Cunningham, RN 01/26/2026 11:00 AM EDT Office Visit [facility] [address] [place] [address] Cindy Meek, [place] [address] [place] [address] documented as of this encounter Visit Diagnoses Not on filedocumented in this encounter Additional Health Concerns Assessment Noted Time PHQ-9 Depression Total Score: 17 025 10:22 AM EST documented as of this encounter Care Teams Health Information Director Relationship Specialty Start Date End Date Sarah Verduzco DO [address] [place] [address] PCP - General Family Medicine 11/21/15 documented as of this encounter
--- OUTSIDE RECORDS SUMMARY | 2025-08-23 18:38 | XMS_ITS | Encounter Summary ---
Author Organization [employer] Address [address] [facility] [address] [place] [address] Care Team Providers Care Bridge Design Engineer Name Role Phone Sarah Verduzco DO Primary Care Provider [phone] Reason for Visit * Reason Comments Med Refill Encounter Details Date Type Department Care Team ([facility] Contact Info) Description 08/05/2025 Refill [facility] [address] [place], [place] [phone] Sarah Verduzco DO [address] [place], [place] [phone] Chronic nonintractable headache, unspecified headache type Social [...] 9:00 AM EST Clinical Support [facility] [address] [place] [address] Lauryn Cunningham RN 01/26/2026 11:00 AM EDT Office Visit [facility] [address] [place] [address] Fantasma, Cindy, OD [address] [place] [address] documented as of this encounter Visit Diagnoses Diagnosis Chronic nonintractable headache, unspecified headache type documented in this encounter Additional Health Concerns Assessment Noted Time PHQ-9 Depression Total Score: 15 025 10:18 AM EDT documented as of this encounter Care Teams Bridge Design Engineer Relationship Specialty Start Date End Date Sarah Verduzco DO [address] [place] [address] PCP - General Family Medicine 11/21/15 documented as of this encounter
--- OUTSIDE RECORDS SUMMARY | 2025-08-23 18:38 | XMS_ITS | Encounter Summary ---
Author Organization [employer] Address [address] [facility] [address] [place] [address] Care Team Providers Care French Edge Operator Name Role Phone Sarah Verduzco DO Primary Care Provider [phone] Reason for Visit * Reason Onset Date Comments Chart Prep 08/22/2025 Encounter Details Date Type Department Care Team ([facility] Contact Info) Description 08/22/2025 Telephone [facility] [address] [place], [place] [phone] Sarah Verduzco DO [address] [place], [place] [phone] Chart Prep Social History Tobacco Use Types Packs/Day Years [...] Telephone Encounter - Lennie Cuenca MA - 08/22/2025 3:23 PM EST Chart Prep Labs: done Images: not applicable Referrals: not applicable Vaccines due: Covid, Flu, PCV20, Hep B, RSV, and Zoster Screenings: not applicable Overdue care gaps: PHQ-9 and NAVEEN-7 documented in this encounter Plan of Treatment Upcoming Encounters Date Type Department Care Team (Late st Contact Info) Description 09/21/2025 9:00 AM EST Clinical Support [facility] [address] [place] [address] Lauryn Cunningham, LUISITO 01/26/2026 11:00 AM EDT Office Visit [facility] [address] [place] [address] Cindy Meek, OD [address] [place] [address] documented as of this encounter Visit Diagnoses Not on filedocumented in this encounter Additional Health Concerns Assessment Noted Time PHQ-9 Depression Total Score: 15 025 10:18 AM EDT documented as of this encounter Care Teams French Edge Operator Relationship Specialty Start Date End Date Sarah Verduzco DO [address] [place] [address] PCP - General Family Medicine 11/21/15 documented as of this encounter
[2025-08-24 05:01] LABS: HBS Num1 0.89 mIU/mL (0-7.99); HBsAGNum1 0.40 S/CO (0.00-0.99); HIV Num 1 0.05 S/CO (0.00-0.99); Hepatitis B Surface Antigen Negative (Negative); ~HepC Num1 0.14 S/CO (0.00-0.79); ~Hepatitis B Surface Antibody NONREACTIVE (Nonreactive); ~Hepatitis C Antibody Nonreactive (Nonreactive)
== END 2025-08-23 11:21 | disposition home or self-care (01) ==
LOC: HO.HHCL 11:20
PROVIDERS: Student in an Organized Health Care Education/Training Program; PCP Family Medicine; Visit Provider Family Medicine
DX: Z11.4 Encounter for screening for human immunodeficiency virus [HIV] (principal); Z13.1 Encounter for screening for diabetes mellitus; Z13.6 Encounter for screening for cardiovascular disorders; F33.9 Major depressive disorder, recurrent, unspecified; E04.2 Nontoxic multinodular goiter
CPT/HCPCS: 36415; 80048; 80061; 80076; 82306; 83036; 84439; 84443; 85027; 86592; 86706; 86803; 87340; 87389

== ENCOUNTER 2025-09-11 10:45 | Outpatient (REF) | payer OTHER, SELFPAY ==
--- NOTE | ~2025-09-11 | US_ITS ---
EXAMINATION: US THYROID CLINICAL INFORMATION: Thyroid nodules COMPARISON: Previous thyroid ultrasounds most recent April 2025 and ultrasound-guided fine-needle aspiration most recent September 2024 TECHNIQUE: Linear transducer grayscale and color Doppler examination with attention to the region of the thyroid. FINDINGS: SIZE: Measurements of the thyroid lobes and nodules are given in sagittal, anteroposterior and transverse dimensions respectively. Right Thyroid Lobe: 4.6 x 1.3 x 1.2 cm, volume 3.6 mL. Parenchyma: The gland echotexture is normal. Thyroid vascularity is normal. Left Thyroid Lobe: 5.2 x 1.6 x 1.1 cm, volume 4.8 mL. Parenchyma: The gland echotexture is normal. Thyroid vascularity is normal. Isthmus: 0.5 cm in maximum AP dimension. Estimated total number of nodules greater than or equal to 1 cm: 3. Air Defense Control Officer nodules are described as follows: 1. Location: Isthmus. Size: 1.2 x 0.9 x 1.2 cm, volume 0.7 mL. Nodule characteristics: Composition: Solid (2). Echogenicity: Hypoechoic (2). Shape: Wider than tall Margins: Smooth (0). Echogenic Foci: None (0). ACR TI-RADS total points: 4 ACR TI-RADS category: 4 Stable. 2. Location: Left upper Size: 1.4 x 1.1 x 1.0 cm, volume 0 .7mL. Nodule characteristics: Composition: Solid/almost completely solid (2). Echogenicity: Hyperechoic (1). Shape: Rose than wide (3) Margins: Lobulated (2). Echogenic Foci: Macrocalcifications (1). ACR TI-RADS total points: 6 ACR TI-RADS category: 4 Stable. This was previously biopsied September 2024. 3. Location: Left lower. Size: 1.8 x 1.4 x 1.7 cm, volume 2.2 mL. Nodule characteristics: Composition: Mixed cystic and solid (1). Echogenicity: Cannot be determined (1). Shape: Wider than tall Margins: Smooth (0). Echogenic Foci: None (0). ACR TI-RADS total points: 2 ACR TI-RADS category: 2 Stable. 4. Location: Right lower Size: 0.3 x 0.4 x 0.3 cm, volume mL. Nodule characteristics: Composition: Solid (2). Echogenicity: Hyperechoic (1). Shape: Taller than wide (3) Margins: Smooth (0). Echogenic Foci: None (0). ACR TI-RADS total points: 6 ACR TI-RADS category: 4 Adjacent right mid nodule measuring 3 x 3 x 4 mm with peripheral rim calcification. These are both stable. NODES: No lymphadenopathy is seen in the tissue surrounding the thyroid gland. US/US thyroid IMPRESSION: Stable bilateral thyroid nodules most recent April 2024 exam. ACR TI-RADS RECOMMENDATION REFERENCE: Ultrasound-guided fine-needle aspiration, followup ultrasound, no further follow up. * TR1 (0 point) and TR2 (2 points): No FNA or follow up. * TR3 (3 points): FNA if more than or equal to 2.5 cm in maximum dimension, followup ultrasound in 1, 3 and 5 years if 1.5 to 2.4 cm in maximum dimension. * TR4 (4-6 points): FNA if more than or equal to 1.5 cm in maximum dimension, followup ultrasound in 1, 2, 3 and 5 years if 1 to 1.4 cm in maximum dimension. * TR5 (more than or equal to 7 points): FNA if more than or equal to 1 cm in maximum dimension, followup ultrasound every year for 5 years if 0.5 to 0.9 cm in maximum dimension. * TR3, TR4 or TR5 nodules that are below the size threshold for followup receive no follow up. Electronically signed by: Miryam Oliveira MD 09/11/2025 12:39 PM [facility]
--- OUTSIDE RECORDS SUMMARY | 2025-09-11 12:21 | XMS_ITS | Clinical Summary ---
Author Organization [employer] Address [address] [place] [address] Care Team Providers Care Training Officer Name Role Phone DellaSarah mills Primary Care Provider [phone] Allergies Active Allergy Reactions Criticality Noted Date [...] A WEEK AT BEDTIME, THU/ 023 Active Mometasone Furoate (Asmanex HFA) 100 MCG/ACT aerosol Inhale 1 Act (100 mcg) 2 times daily. 13 g 11 025 Active hydroquinone 4 % creamIndications: Melasma APPLY TO THE AFFECTED AREA(S) TWICE DAILY IN THE MORNING AND AT BEDTIME 28.35 g 5 5 12:05 PM EST Active nitrofurantoin (Macrodantin) 50 MG capsule TAKE 1 CAPSULE ORALLY USE AFTER SEXUAL ACTIVITY MUST ADMINISTER WITH A MEAL/FOOD Active clonazePAM (KlonoPIN) 0.5 MG tablet Active atorvastatin (Lipitor) 40 MG tabletIndications :Other [...] DAY NEEDED 180 capsule 1 025 Active Diclofenac Sodium 1 % gelIndications:Ce rvical spondylosis APPLY THIN LAYER BY TOPICAL ROUTE (QUANTITY DIRECTED ON PACKAGE INSERT) TO AFFECTED AREA OF PAIN 3 TIMES DAILY NEEDED. 100 g 3 025 Active mesalamine ER (Apriso) 0.375 g 24 hr capsule TAKE 4 CAPSULES ORALLY EVERY MORNING FOR 90 DAYS Active escitalopram (Lexapro) 20 MG tablet TAKE 1 TABLET BY MOUTH EVERY DAY WITH 5MG TABLET FOR 15MG TOTAL DOSE Active albuterol 108 (90 Base) MCG/ACT inhaler Inhale 2 puffs every 4 (four) hours if needed for wheezing or shortness of breath. 18 g 2 025 Active baclofen (Lioresal) 10 MG tablet Take 1 tablet (10 mg) by mouth if needed in the morning, at noon, and at bedtime for muscle spasms. 60 tablet 3 025 2025 Active loratadine (Claritin) 10 MG tablet Take 1 tablet (10 mg) by mouth if needed each day for allergies. 90 tablet 3 025 Active fluticasone (Flonase) 50 MCG/ACT nasal sprayIndications: Seasonal allergic rhinitis, unspecified trigger Administer 2 sprays into each nostril if needed each day for rhinitis or allergies. 48 mL 3 025 Active butalbital-acetam inophen-caffeine 50-325-40 MG tabletIndications [...] for up to 28 days. 112 tablet 5 5:08 PM EST 025 2025 Active sodium chloride (SALINE MIST) 0.65 % [...] g 3 025 2024 Discontinued(T herapy completed) butalbital-acetam inophen-caffeine 50-325-40 MG tabletIndications :Chronic nonintractable headache, unspecified headache type TAKE 1 TABLET BY MOUTH AT ONSET OF HEADACHE, MAY REPEAT AFTER 4 HOURS NEEDED, MAX 2 TABS PER DAY. 20 tablet 1 9:47 AM EST 2024 Discontinued(R eorder (will not trigger notification to Pharmacy)) oxyCODONE-acetami nophen (Percocet) 5-325 MG tabletIndications :Chronic bilateral low back pain with left-sided sciatica Take 1 tablet by mouth every 6 (six) hours if needed for severe pain for up to 28 days. Do not start before July 27, 2025. 112 tablet 025 2024 Discontinued(R eorder (will not trigger notification to Pharmacy)) escitalopram (Lexapro) 10 MG tablet TAKE 1 TABLET BY MOUTH ONCE A DAY, TAKE WITH 5MG TAB FOR 15MG TOTAL DOSE 025 2024 Discontinued(M ed list cleanup (will not trigger notification to Pharmacy)) erythromycin (Romycin) 5 MG/GM ophthalmic ointment Apply to affected eye(s) 4 times daily for 10 days. Apply Amount per Dose: 0.5 inch (~1 cm) per dose. 3.5 g 025 2024 Active Problems Problem Noted Date Diagnosed Date Post traumatic stress disorder 08/23/2025 BMI 27.0-27.9,adult 08/23/2025 Long-term current use of opiate analgesic 2024 Overview (03/06/2025): Medication: percocet 5/325mg Q6H PRN Indication: cervical DDD, cervical spondylosis, lumbar spondylosis, fibromyalgia Last HEALTHCARE NETWORK PRICING CONSULTANT Agreement: 11/07/24 Tier 2 (HEALTHCARE NETWORK PRICING CONSULTANT visits Q3 months) Assessment & Plan (03/07/2025 2:20 PM EDT): Timeline: - 03/07/25: Group - utox/pill count as expected Chorioretinal scar of right eye 01/25/2025 Age-related nuclear cataract of left eye Lattice degeneration of peripheral retina, left 01/25/2025 Blindness right eye category 4, normal vision le ft eye 01/25/2025 Chronic, continuous use of opioids 07/07/2024 Overview (07/07/2024): Dx: Rx: Last HEALTHCARE NETWORK PRICING CONSULTANT agreement: Tier II (visit every 3 months) [...] to be send to [facility] pharmacy due to not being covered at [facility]. 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 01/27/2023 Overweight (BMI 25.0-29.9) 11/21/2015 0 01/27/2023 Encounters Date Type Department Care Team Description 08/28/2025 Telephone [facility] MEDICINE [address] [place] [address] Sarah Verduzco, DO Results 08/25/2025 Telephone [facility] MEDICINE [address] [place] [address] Sarah Verduzco DO Med Refill 08/25/[address] [address] Sarah Verduzco DO Med Refill 08/25/[address] [address] Sarah Verduzco DO Chronic bilateral low back pain with left-sided sciatica 08/25/[address] [address] Sarah Verduzco DO Chronic nonintractable headache, unspecified headache type 08/24/[address] [address] Sarah Verduzco DO Results 08/23/2025 10:00 AM EST Office Visit [address] [address] Sarah Verduzco DO Major depression, recurrent, chronic [...] Generic External Data 08/23/2025 Travel 08/22/[address] [address] Sarah Verduzco DO Chart Prep 08/15/[address] [address] Lauryn Cunningham RN Reschedule HEALTHCARE NETWORK PRICING CONSULTANT appt 08/23/25 08/14/2025 Patient Outreach [address] [address] Sarah Verduzco DO Pre-visit Planning (SDOH screening negative and tobacco screening negative) 08/05/[address] [place] [address] Sarah Verduzco DO Chronic nonintractable headache, unspecified headache type 08/04/2025 Travel 07/28/2025 11:00 AM EST Office Visit [facility] OPTOMETRY [address] [place] [address] Fantasma, Cindy, OD Macular hemorrhage of right eye (Primary Dx); Hordeolum internum of right lower eyelid; Hx of retinal detachment; Chorioretinal scar of right eye; Aphakia, right eye; Lattice degeneration of peripheral retina, left; Blindness right eye category 4, normal vision left eye 07/28/2025 Travel 07/23/2025 Refill [facility] MEDICINE [address] [place] [address] Fiona Heaton FNP Cervical spondylosis 07/18/2025 11:30 AM EST Clinical Support [facility] [address] [place] [address] Lauryn Cunningham, LUISITO Long-term current use of opiate analgesic (Primary Dx) 07/18/2025 Refill [facility] MEDICINE [address] [place] [address] Lauryn Cunningham RN Chronic bilateral low back pain with left-sided sciatica 07/18/2025 Travel 06/27/2025 Refill [facility] MEDICINE [address] [place] [address] Sarah Verduzco DO Chronic bilateral low back pain with left-sided sciatica 06/27/2025 Refill [facility] MEDICINE [address] [place] [address] Sarah Verduzco DO Chronic nonintractable headache, unspecified headache type 06/23/2025 9:45 AM EDT Office Visit [facility] MEDICINE [address] [place] [address] Ben Cabrera FNP Chronic bilateral low back pain with left-sided sciatica (Primary Dx) 06/23/2025 Travel 06/22/2025 Telephone [facility] MEDICINE [address] [place] [address] Ben Cabrera FNP Chart Prep 06/22/2025 Telephone [facility] [address] [place] [address] Sarah Verduzco DO Nurse Triage from Last 3 Months Immunizations Immunization Administration [...] [facility] MEDICINE [address] [place] [address] Lauryn Cunningham, LUISITO 01/26/2026 11:00 AM EDT Office Visit [facility] OPTOMETRY [address] [place] [address] Fantasma, Cindy, OD [address] [place] [address] Health Maintenance Due Date Last Done Comments [...] Tdap) 12/13/2032 12/13/2022, 06/10/2022 HIV Screening Completed 08/23/2025, 04/15, 06/10/2022, Additional history exists Hepatitis C Screening Completed 08/23/2025 , 05/04/2024, 05/20/2023, Additional history exists HIB Vaccines Aged [...] FT4 Routine 08/23/2025 1 1:38 AM EST HEPATITIS B SURFACE ANTIBODY, QUALITATIVE Routine 08/23/2025 11:38 AM EST Major depression, recurrent, chronic (CMS/HCC) RPR (MONITOR) W/REFL TITER Routine 08/23/2025 11:38 AM EST Major depression, recurrent, chronic (CMS/HCC) HEPATITIS C AB W/REFL TO HCV RNA, QN, PCR Routine 08/23/2025 11:38 AM EST Major depression, recurrent, chronic (CMS/HCC) HIV 1/2 ANTIGEN/ANTIBODY, FOURTH GENERATION W/RFL Routine 08/23/2025 11:38 AM EST Major depression, recurrent, chronic (CMS/HCC) HEPATITIS B SURFACE ANTIGEN, EIA Routine 08/23/2025 11:38 AM EST Major depression, recurrent, chronic (CMS/HCC) BASIC METABOLIC PANEL Routine 08/23/2025 11:38 AM EST Major depression, recurrent, chronic (CMS/HCC) CBC Routine 08/23/2025 11:38 AM EST Major depression, recurrent, chronic (CMS/HCC) HEMOGLOBIN A1C Routine 08/23/2025 11:38 AM EST Major depression, recurrent, chronic (CMS/HCC) HEPATIC FUNCTION PANEL Routine 11:38 AM EST Major depression, recurrent, chronic [...] screening mammogram for malignant neoplasm of breast from Last 3 Months or Most Recently Relevant to Health Maintenance Results * (ABNORMAL) Vitamin D, 25-Hydroxy, Total, Immunoassay (08/23/2025 11:38 AM EST) Vitamin D 25-OH Total 28.5(L) >30 ng/mL [facility] Comment: Health Based Reference Values*< 20 ng/mL Lpoqzwuzj25-24 ng/mL Insufficient> 30 ng/mL Sufficient*Juan PARTIDA. N [...] R esult Performing Organization Address [facility]/ZIP Co de Phone Number [facility] [address] [place] [phone] * TSH with Reflex to Free T4 (08/23/2025 11:38 AM EST) TSH reflex Free T4 1.06 0.32 - 4.0 uIU/mL [facility] 08/23/2025 11:3 8 AM EST 08/23/2025 2:05 PM EST us Generic External Data Provider LAB BLOOD ORDERAB LES Final Result Performing Organization Address [facility] Co de Phone Number [facility] [address] [place] [phone] * Hepatitis C Antibody with Reflex to HCV, RNA, Quantitative, Real-Time PCR (08/23/2025 11:38 AM EST) Hepatitis C Antibody Nonreactive Nonreactive [facility] Comment:Antibodies to HCV no t detected; does not exclude early acuteHCV infection. Blood Venous blood specimen / Unknown 08/23/2025 11:38 AM EST 08/23/2025 2:05 PM EST Sarah Verduzco DO LAB BLOOD ORDERABLES Final R esult Performing Organization Address [facility] Co de Phone Number [facility] [address] [place] [phone] * Hepatitis B surface antigen, EIA (08/23/2025 11:38 AM EST) Hepatitis B Surface Ag Negative Negative [facility] Blood Venous blood specimen / Unknown 08/23/2025 11:38 AM EST 08/23/2025 2:05 PM EST Sarah Verduzco DO LAB BLOOD ORDERABLES Final R esult Performing Organization Address [facility] Co de Phone Number [facility] [address] [place] [phone] * RPR (Monitor) with Reflex to??Titer (08/23/2025 11:38 AM EST) RPR (Monitor) w/Refl Titer NON-REACTI VE NON-REACT MARIAELENA [facility] Comment:THIS TEST WAS PERFOR MED AT:[facility] [place] [phone] JC MD Rapid Plasma Reagin Ab Titer TNP [facility] Blood Venous blood specimen / Unknown 08/23/2025 11:38 AM EST 08/23/2025 2:05 PM EST Sarah Verduzco DO LAB BLOOD ORDERABLES Final R esult Performing Organization Address [facility] Co de Phone Number [facility] [address] [place] [phone] * HIV-1/2 Antigen and Antibodies, Fourth Generation, with Reflexes (08/23/2025 11:38 AM EST) Pathologist [facility] HIV AB/AG Nonreactive Nonreactive [facility] Comment:HIV-1 p24 Ag and/or HIV-1/HIV-2 Ab not detected.A test result that is nonreactive does not exclude thepossibility of exposure to or infection with HIV-1 and/orHIV-2. Nonreactive results in this assay for individualswith prior exposure to HIV-1 and/or HIV-2 may be due toantigen and antibody levels that are below the limit ofdetection of this assay.The [employer] HIV Ag/Ab Combo assay result andsupplemental assay results should be interpreted inconjunction with the patient's clinical presentation,history and other laboratory results. If the results areinconsistent with clinical evidence, additional testing issuggested to confirm the result. Blood Venous blood specimen / Unknown 08/23/2025 11:38 AM EST 08/23/2025 2:05 PM EST Sarah Dax DO LAB BLOOD ORDERABLES Final R esult Performing Organization Address City/[facility]/ZIP Co de Phone Number [facility] [address] [place] [phone] * Hepatitis B Surface Antibody, Qualitative (08/23/2025 11:38 AM EST) ~Hepatitis B Surface Antibody NONREACTIVE Nonreactive [facility] Comment:Nonreactive: < 8.00 mIU/mL Blood Venous blood specimen / Unknown 08/23/2025 11:38 AM EST 08/23/2025 2:05 PM EST Sarah Dax DO LAB BLOOD ORDERABLES Final R esult Performing Organization Address [facility] Co de Phone Number [facility] [address] [place] [phone] * (ABNORMAL) CBC (08/23/2025 11:38 AM EST) White Blood Count 7.4 4.8 - 10.8 X10*3/uL [facility] Red Blood Count 3.98(L) 4.20 - 5.50 X10*6/uL [facility] Hemoglobin 12.0 12.0 - 16.0 g/dl [facility] Hematocrit 36.3(L) 37.0 - 47.0 % [facility] Mean Corpuscular Volume 91.2 80.0 - 98.0 fL [facility] Mean Corpuscular Hemoglobin 30.2 27.0 - 33.0 pg [facility] Mean Corpuscular HGB Conc 33.1 31.0 - 35.0 g/dl [facility] Red Cell Distribution Width 12.5 11.0 - 16.0 % [facility] Platelet Count 332 160 - 400 X10*3/uL [facility] Mean Platelet Volume 9.6 9.4 - 12.3 fL [facility] NRBC Pct Auto 0.0 0.0 - 0.2 /100WBC [facility] NRBC Abs Auto 0.000 0.0 - 0.012 X10*3/uL [facility] Blood Venous blood specimen / Unknown 08/23/2025 11:38 AM EST 08/23/2025 2:05 PM EST Sarah Verduzco DO LAB BLOOD ORDERABLES Final R esult [facility] [address] [place] [phone] * TSH (08/23/2025 11:38 AM EST) Thyroid Stimulating Hormone 1.07 0.32 - 4.0 uIU/mL [facility] Comment:TSH 3rd Generation ( [facility]) Blood Venous blood specimen / Unknown 08/23/2025 11:38 AM EST 08/23/2025 2:05 PM EST Sarah Verduzco DO LAB BLOOD ORDERABLES Final R esult Performing Organization Address [facility] Co de Phone Number [facility] [address] [place] [phone] * T4, Free (08/23/2025 11:38 AM EST) Free T4 (Free Thyroxine) 0.98 0.71 - 1.85 ng/dL [facility] Blood Venous blood specimen / Unknown 08/23/2025 11:38 AM EST 08/23/2025 2:05 PM EST Sarah Verduzco DO LAB BLOOD ORDERABLES Final R esult Performing Organization Address City/[facility]/ZIP Co de Phone Number [facility] [address] [place] [phone] * Hemoglobin A1c (08/23/2025 11:38 AM EST) Hemoglobin A1c 5.3 <6.0 % [facility] Comment:Hemoglobin A1C Refer ence Range Adults: 4.8 - 6.0 % Non diabetic: < 6.0 % Goal: < 7.0 %Additional Action Suggested: > 8.0 %Note: Hemoglobin A1c results are invalid for patients with abnormal amounts of HbF. Blood transfusions may impact the HbA1c concentration in the patient sample. Estimated Average Glucose 105 mg/dL [facility] Comment:eAG = Estimated ave rage glucose which is %A1C expressed asaverage glucose, using the formula of the W2M-KkgxnpbDociwsa Glucose study (ADAG), Diabetes Care, Vol.31,#8,2007 Blood Venous blood specimen / Unknown 08/23/2025 11:38 AM EST 08/23/2025 2:05 PM EST Sarah Verduzco Veset LAB BLOOD ORDERABLES Final R disco volanteult Performing Organization Address City/State/[facility] Co de Phone Number [facility] [address] [place] [phone] * (ABNORMAL) Hepatic Function Panel (08/23/2025 11:38 AM EST) Bilirubin, Total 0.4 0.0 - 1.0 mg/dL [facility] Bilirubin, Direct 0.1 0.0 - 0.5 mg/dL [facility] Aspartate Amino Transferase 23 5 - 31 U/L [facility] Alanine Aminotransferase 15 0 - 31 U/L [facility] Total Protein 8.2(H) 6.5 - 8.0 g/dL [facility] Albumin Level 4.4 3.5 - 5.0 g/dL [facility] Alkaline Phosphatase 79 39 - 117 U/L [facility] Blood Venous blood specimen / Unknown 08/23/2025 11:38 AM EST 08/23/2025 2:05 PM EST Sarah Verduzco DO LAB BLOOD ORDERABLES Final R esult Performing Organization Address City/[facility]/ZIP Co de Phone Number [facility] [address] [place] [phone] [phone] * (ABNORMAL) Lipid Panel, Standard (08/23/2025 11:38 AM EST) Triglycerides 144 <150 mg/dL [facility] Comment:Desirable Triglyceri de: less than 150 mg/dLBorderline High Triglyceride 150-199 mg/dLHigh Triglyceride: 200-499 mg/dLVery High Triglyceride: greater than or equal to 5OO mg/dL Cholesterol 292(H) <200 mg/dL [facility] Comment:Desirable Cholestero l: less than 200 mg/dLBorderline High Cholesterol: 200-239 mg/dLHigh Cholesterol: greater than 239 mg/dL LDL Cholesterol Calculated 187(H) <100 mg/dL [facility] Comment:Desirable LDL: less than 100 mg/dLNear Optimal/Above Optimal LDL: 110- 129 mg/dLBorderline High LDL: 130-159 mg/dLHigh LDL: 160-189 mg/dLVery High LDL: greater than or equal to 190 mg/dL HDL Cholesterol 77 >40 mg/dL [facility] Comment:Desirable HDL: great er than 40 mg/dL Note: This HDL assay may give artificially low results in patients with liver disease. Blood Venous blood specimen / Unknown 08/23/2025 11:38 AM EST 08/23/2025 2:05 PM EST Sarah Verduzco DO LAB BLOOD ORDERABLES Final R esult [facility] [address] [place] [address] [phone] * (ABNORMAL) Basic Metabolic Panel (08/23/2025 11:38 AM EST) Sodium 139 135 - 145 mmol/L [facility] Potassium 3.9 3.3 - 5.1 mmol/L [facility] Chloride 103 96 - 108 mmol/L [facility] Carbon Dioxide 32(H) 22 - 29 mmol/L [facility] Anion Gap 8(L) 12 - 20 [facility] Urea Nitrogen (BUN) 12 9 - 16 mg/dL [facility] Creatinine, Serum 0.68 0.5 - 1.4 mg/dL [facility] Estimated Glomerular Filt Rate >60 [facility] Comment:Chronic Kidney Disea se: Estimated GFR < 60 mL/min/1.53u6Jgwzxk Kidney Disease: Estimated GFR < 15 mL/min/1.73m2 Glucose 90 60 - 115 mg/dL [facility] Calcium 9.2 8.4 - 10.2 mg/dL [facility] Blood Venous blood specimen / Unknown 08/23/2025 11:38 AM EST 08/23/2025 2:05 PM EST us Sarah Verduzco DO LAB BLOOD ORDERABLES Final R esult Performing Organization Address City/State/[facility] Co de Phone Number [facility] [address] [place] [phone] * OCT, Retina - OU - Both Eyes (07/28/2025 11:00 AM EST) Narrative Cindy Meek, OD - 08/21/2025 10:26 AM [...] eye. Will refer to Dr. Ashford at [facility] for further evaluation and potential treatment. Will monitor here in 6 months. us Cindy Meek OD OPHTH TOMOGRAPHY Final Result [...] Negative ng/mL Oxycodone Screen, Urine Positive(A) Negative Comment:HEALTHCARE NETWORK PRICING CONSULTANT pt on Percocet Phencyclidine (PCP), Urine Negative Negative Propoxyphene, Urine Negative Negative Fentanyl, Urine Negative Negative Urine Urine specimen obtained by clean catch procedure / Unknown 07/18/2025 11:35 AM EST Narrative Lauryn Cunningham RN - 07/18/2025 11:35 AM EST UTOX cup Lot#[id number] Exp. 06/20/26 Internal Pass Control Sarah Verduzco DO POINT OF CARE TEST ENTER/DAVID T ORDERABLES Final Result * Referral to Neurosurgery (07/07/2025) Ben Cabrera PROPERTY TECHNICIAN OUTPATIENT REFERRAL ORDERABLE S Final Result * Hm Colonoscopy (08/24/2024) Colonoscopy Normal Normal Narrative EmilyJessa - 08/24/2024 Repeat colonoscopy in about 1-2 years ( see external hospital admission note on 08/24/2024) Historical Provider MD HEALTH MAINTENANCE Final Result * BI Mammogram Screening Tomosynthesis Bilateral (06/22/2024 9:45 AM EDT) Anatomical Region Laterality Modality Breast Bilateral Mammography 06/22/2024 9:45 AM EDT Narrative 07/04/2024 6:01 PM EDT [facility] [address] [place] [address] Mammography Report Signed Patient: Miryam Fan MR#: [id number] [birth year] : 1965 Acct:[id number] Age/Sex: 58 / F ADM Date: 06/22/24 Loc: HO.MAMMO Attending Dr: Sarah Verduzco DO Ordering Physician: Sarah Verduzco DO Results: 1N egative Date of Service: 06/22/24 Follow Up: 1 Year From Orig inal Mammogram Procedure(s): MM tomosynthesis screening BI Accession Number(s): [id number] cc: Sarah Verduzco DO EXAMINATION: MM SCREENING [...] OV> 07/04/24 1757 DD/ 4 TD/TT: 06/22/24957 Programs Assistant: Procedure Note Donotuseinterpreter, Image - 07/04/2024 [facility] [address] [place], [place] [address] Mammography Report Signed Patient: Miryam FanMR#: [id number] 06 : 1965Acct:[id number] Age/Sex: 58 / FADM Date: 06/22/24 Loc: MAMMO Attending Dr: Sarah Verduzco DO Ordering Physician: Sarah Verduzcoults: 1N egative Date of Service: 06/22/24Follow Up: 1 Year From Orig inal Mammogram Procedure(s): MM tomosynthesis screening BI Accession Number(s): [id number] cc: Sarah Verduzco DO EXAMINATION: MM SCREENING [...] 07/04/24 1757 DD/ 0945 TD/TT: 06/22/24 0958 Programs Assistant: Sarah Verduzco DO IMG BI PROCEDURES Edited Res ult - Final from Last 3 Months or Most Recently Relevant to Health Maintenance Insurance [facility] [employer] Member Subscriber Plan / Payer (Ef fective 2016-Present) Name:Miryam Fan Relation to Subscriber:Self Name:Miryam Fan Payer ID:Not on file Group ID:[id number] Type:Not on file Address: [address] CARE < [address] [place] [id number] Care Teams Training Officer Relationship Specialty Start Date End Date Sarah Verduzco DO [address] [place] [phone] PCP - General Family Medicine 11/21/15
--- OUTSIDE RECORDS SUMMARY | 2025-09-11 12:21 | XMS_ITS | Encounter Summary ---
Author Organization [email or web address] Address 75 [facility] 7t [place] [address] Care Team Providers Care Lead Qa Analyst Name Role Phone Sarah Verduzco DO Primary Care Provider + [phone] Reason for Visit * Reason Comments Med Refill Encounter Details Date Type Department Care Team ([facility] Contact Info) Description 03/31/2024 Refill [facility] MEDICINE [address] [place], [place] [phone] Sarah Verduzco DO 230 [place], [place] [phone] Social History Tobacco Use Types Packs/Day Years [...] Description 09/21/2025 9:00 AM EST Clinical Support [facility] MEDICINE [address] [place] [address] Lauryn Cunningham, LUISITO 01/26/2026 11:00 AM EDT Office Visit [facility] OPTOMETRY [address] [place] [address] Fantasma, Cindy, OD 230 [place] [address] documented as of this encounter Visit Diagnoses Not on filedocumented in this encounter Additional Health Concerns Assessment Noted Time PHQ-9 Depression Total Score: 24 023 8:54 AM EDT documented as of this encounter Care Teams Lead Qa Analyst Relationship Specialty Start Date End Date Sarah Verduzco DO 230 [place] [address] PCP - General Family Medicine 11/21/15 documented as of this encounter
--- OUTSIDE RECORDS SUMMARY | 2025-09-11 12:21 | XMS_ITS | Encounter Summary ---
Author Organization [employer] Address [address] [facility] [address] 7t [place] [address] Care Team Providers Care Delivery Driver Name Role Phone Sarah Verduzco DO Primary Care Provider + [phone] Encounter Details Date Type Department Care Team ([facility] Contact Info) Description 07/27/2023 Telephone [facility] MEDICINE 230 [place], [place] [phone] Sarah Verduzco DO 230 [place], [place] [phone] Social History Tobacco Use Types Packs/Day Years [...] Description 09/21/2025 9:00 AM EST Clinical Support [facility] MEDICINE 230 [place] [address] Lauryn Cunningham RN 01/26/2026 11:00 AM EDT Office Visit [facility] OPTOMETRY [address] [place] [address] Fantasma, Cindy, OD 230 [place] [address] documented as of this encounter Visit Diagnoses Not on filedocumented in this encounter Additional Health Concerns Assessment Noted Time PHQ-9 Depression Total Score: 24 023 8:54 AM EDT documented as of this encounter Care Teams Delivery Driver Relationship Specialty Start Date End Date Sarah Verduzco DO 230 [place] [address] PCP - General Family Medicine 11/21/15 documented as of this encounter
--- OUTSIDE RECORDS SUMMARY | 2025-09-11 12:21 | XMS_ITS | Encounter Summary ---
Author Organization [employer] Address 75 [facility] 7t [place] [address] Care Team Providers Care Bean Weigher Name Role Phone Sarah Verduzco DO Primary Care Provider + [phone] Reason for Visit * Reason Comments Med Refill Encounter Details Date Type Department Care Team ([facility] Contact Info) Description 09/08/2023 Refill [facility] MEDICINE 230 [place], [place] [phone] Sarah Verduzco DO 230 [place], [place] [phone] Social History Tobacco Use Types Packs/Day Years [...] Description 09/21/2025 9:00 AM EST Clinical Support [facility] MEDICINE [address] [place] [address] Lauryn Cunningham, LUISITO 01/26/2026 11:00 AM EDT Office Visit [facility] OPTOMETRY [address] [place] [address] Fantasma, Cindy, OD 230 [place] [address] documented as of this encounter Visit Diagnoses Not on filedocumented in this encounter Additional Health Concerns Assessment Noted Time PHQ-9 Depression Total Score: 24 023 8:54 AM EDT documented as of this encounter Care Teams Bean Weigher Relationship Specialty Start Date End Date Sarah Verduzco DO 230 [place] [address] PCP - General Family Medicine 11/21/15 documented as of this encounter
--- OUTSIDE RECORDS SUMMARY | 2025-09-11 12:21 | XMS_ITS | Encounter Summary ---
Author Organization [employer] Address 75 [facility] 7t [place] [address] Care Team Providers Care Car Rental Service Attendant Name Role Phone Sarah Verduzco DO Primary Care Provider + [phone] Reason for Visit * Reason Comments Med Refill Encounter Details Date Type Department Care Team ([facility] Contact Info) Description 01/29/2024 Refill [facility] MEDICINE 230 [place], [place] [phone] Sarah Verduzco DO 230 [place], [place] [phone] Social History Tobacco Use Types Packs/Day Years [...] Description 09/21/2025 9:00 AM EST Clinical Support [facility] MEDICINE 230 [place] [address] Lauryn Cunningham, LUISITO 01/26/2026 11:00 AM EDT Office Visit [facility] OPTOMETRY [address] [place] [address] Fantasma, Cindy, OD 230 [place] [address] documented as of this encounter Visit Diagnoses Not on filedocumented in this encounter Additional Health Concerns Assessment Noted Time PHQ-9 Depression Total Score: 24 023 8:54 AM EDT documented as of this encounter Care Teams Car Rental Service Attendant Relationship Specialty Start Date End Date Sarah Verduzco DO 230 [place] [address] PCP - General Family Medicine 11/21/15 documented as of this encounter
--- OUTSIDE RECORDS SUMMARY | 2025-09-11 12:21 | XMS_ITS | Clinical Summary ---
Author Organization 175 [facility] Address [address] [place] [address] Phone Care Team Providers Care Sheetrock Applicator Name Role Phone Sarah Verduzco Primary Care Provider +[phone]- [phone] Allergies Active Allergy Reactions Criticality Noted Date [...] Active Problems Problem Noted Date Diagnosed Date Spinal stenosis, cervical region 08/25/2025 Myofascial pain 08/04/2024 Low back pain radiating [...] daily life. Prior lumbar spine MRI 07/02/2024 [facility], showed left L5-S1 facet disease, some loss [...] study, she states it was done at [facility] neurology, we called to have it faxed over, it is dated 09/09/2023 and showed normal motor and sensory nerve conduction study. Normal EMG except may suggest mild chronic L5 radiculopathy. She also had lumbar spine MRI 07/02/2024 at [facility], there is no official report from radiology. [...] opioids 07/07/2024 Overview (08/04/2024): Dx: Rx: Last SHOULDER SAWYER agreement: Tier II (visit every 3 months) [...] images of her prior C-spine MRI from [facility] 02/26/2024 that showed solid arthrodesis C6-7, right [...] Review of the cervical spine MRI at [place] dated 02/26/2024 shows a solid arthrodesis at [...] images of her prior C-spine MRI from [facility] 02/26/2024 that showed solid arthrodesis C6-7, right [...] Department Care Team Description 07/25/2025 Results Follow-Up [address] [place] [phone] Mimi Newsome PA 07/25/2025 Telephone [facility] [address] [phone] Mimi Newsome PA 07/19/2025 2:33 PM EST - 07/19/2025 11:59 PM EST Hospital Encounter [facility] MRI [address] [place] [address] Low back pain radiating to left leg Discharge Disposition: Home or Self Care 07/19/2025 2:06 PM EST - 07/19/2025 11:59 PM EST Hospital Encounter [facility] MRI [address] [place] [address] Neck pain Discharge Disposition: Home or Self Care 07/07/2025 3:00 PM EDT Office Visit Neurosurgery [address] [phone] Mimi Newsome PA Neck pain (Primary Dx); Low back pain radiating to left leg 06/28/2025 [address] [address] [facility] [place] from Last 3 Months Immunizations Immunization Administration [...] 07/07/2025 3:12 PM EDT Plan of Treatment Upcoming Encounters Date Type Department Care Team (Latest Contact Info) Description 09/12/2025 7:30 AM EST Hospital Encounter [facility] OR [address] [place] [phone] Aura Pollock MD [address] [place] [phone] 09/12/2025 7:30 AM EST - 09/12/2025 10:00 AM EST Surgery [facility] OR [address] [place] [phone] Aura Pollock MD [address] [place] [address] C4-5 anterior cervical discectomy w/fusion [62157 (CPT ) +2 more] Scheduled Procedures Name Priority Associated Diagnoses Date/Ti me FUSION CERVICAL ANTERIOR LEVEL 1 Spinal stenosis, cervical region 09/12/2025 7:30 AM EST Health Maintenance Due Date Last Done Comments Breast Cancer Screening 1966 Colorectal Cancer Screening: Colonoscopy 1966 Non-Opioid Controlled Substance Agreement 1966 Hepatitis A Vaccines (1 of 2 - Risk 2-dose series) 1985 Hepatitis B Vaccines (1 of 3 - 19+ 3-dose series) 1985 Pneumococcal Vaccine: 50+ Years (1 of 2 - PCV) 1985 Cervical Cancer Screening: Pap Smear 12/27/1987 RSV Immunization Adult Patients (1 - Risk 50-74 years 1-dose series) 2016 Zoster Vaccines (1 of 2) 2016 Medicare Annual Wellness Visit 08/24/2022 Social Influencers of Health Screening 08/24/2022 Depression Screening 09/14/2024 COVID-19 Vaccine ( - 2024- season) 2025 02/01/2021, 01/04/2021 Influenza Vaccine (#1) 2025 Drug Screen 07/18/2026 07/18/2025, 04/15, 07/05/2024, Additional history exists Cholesterol Screening (Lipid Panel) 05/04/2029 05/04/2024 DTaP,Tdap,and [...] 20 months Aged Out No longer eligible based on patient's age to complete this topic Varicella Vaccines Aged Out No longer eligible based on patient's age to complete this topic Goals Goal Patient Goal Type Associated Problems Recent Progress Patient-Stated? Author Autogenerat ed Goal Care Plan Autogenerated Problem No Gretel Stein MA Procedures Procedure Name Priority Date/Time Associated Diagnosis [...] Signed Date: 07/27/2025 04:00 ET Workstation ID: [id number] Transcribed By: Self Edit Transcribed Date: 07/27/2025 03:53 ET Narrative 07/27/2025 4:00 AM EST INDICATION: Low back pain, left leg pain COMPARISON: MRI of the lumbar spine from [facility] dated June 2024 TECHNIQUE: Multiplanar, multisequence [...] COMPARISON: MRI of the lumbar spine from [facility] datedOctober 2023 TECHNIQUE: Multiplanar, multisequence MRI was performed of [...] Signed Date: 07/27/2025 04:00 ET Workstation ID: [id number] Transcribed By: Self Edit Transcribed Date: 07/27/2025 03:53 ET Mimi GLOVER IMG MRI PROCEDURES Final [...] Signed Date: 07/24/2025 15:57 ET Workstation ID: [id number] Transcribed By: Self Edit Transcribed Date: 07/24/2025 [...] Signed Date: 07/24/2025 15:57 ET Workstation ID: [id number] Transcribed By: Self Edit Transcribed Date: 07/24/2025 15:25 ET us Mimi GLOVER IMG MRI PROCEDURES Final R esult from Last 3 Months Additional Health Concerns Active Problems Noted Date Diagnosed Date Autogenerated Problem 08/25/2025 Insurance [employer] MEDICARE Member Subscriber Plan / Payer (Ef fective 2016-Present) Name:MIRYAM BARBOSA Relation to Subscriber:Self Name:Miryam Barbosa Payer ID:[id number] Group ID:[id number] Type:Not on file Address: [place] [facility] [place] [address] Care Teams Sheetrock Applicator Relationship Specialty Start Date End Date Sarah Verduzco DO [address] [place] [address] PCP - General Internal Medicine 02/09/18
--- OUTSIDE RECORDS SUMMARY | 2025-09-11 12:21 | XMS_ITS | Encounter Summary ---
Author Organization [employer] Address 75 [facility] 7t [place] [address] Care Team Providers Care Statistics Manager Name Role Phone Sarah Verduzco DO Primary Care Provider + [phone] Reason for Visit * Reason Comments Med Refill Encounter Details Date Type Department Care Team ([facility] Contact Info) Description 08/20/2023 Refill [facility] MEDICINE [address] [place], [place] [phone] Sarah Verduzco DO 230 [place], [place] [phone] Chronic neck pain Social History Tobacco Use [...] 08/31/2023 11:48 AM EST Referral faxed for MEDICAL ASSISTING PROGRAM DIRECTOR services to , per provider request. documented in this encounter Plan of Treatment Upcoming Encounters Date Type Department Care Team (Late st Contact Info) Description 09/21/2025 9:00 AM EST Clinical Support [facility] MEDICINE [address] [place] [address] Lauryn Cunningham RN 01/26/2026 11:00 AM EDT Office Visit [facility] OPTOMETRY [address] [place] [address] Fantasma, Cindy, OD 230 [place] [address] documented as of this encounter Visit Diagnoses Diagnosis Chronic neck pain Cervicalgia documented in this encounter Additional Health Concerns Assessment Noted Time PHQ-9 Depression Total Score: 24 023 8:54 AM EDT documented as of this encounter Care Teams Statistics Manager Relationship Specialty Start Date End Date Sarah Verduzco DO 230 [place] [address] PCP - General Family Medicine 11/21/15 documented as of this encounter
--- OUTSIDE RECORDS SUMMARY | 2025-09-11 12:21 | XMS_ITS | Encounter Summary ---
Author Organization [employer] Address 75 [facility] 7t [place] [address] Care Team Providers Care Refund Specialist Name Role Phone Sarah Verduzco DO Primary Care Provider + [phone] Reason for Visit * Reason Comments Med Refill Encounter Details Date Type Department Care Team ([facility] Contact Info) Description 01/05/2024 Refill [facility] MEDICINE 230 [place], [place] [phone] Sarah Verduzco DO 230 [place], [place] [phone] Social History Tobacco Use Types Packs/Day Years [...] Description 09/21/2025 9:00 AM EST Clinical Support [facility] MEDICINE 230 [place] [address] Lauryn Cunningham, LUISITO 01/26/2026 11:00 AM EDT Office Visit [facility] OPTOMETRY [address] [place] [address] Fantasma, Cindy, OD 230 [place] [address] documented as of this encounter Visit Diagnoses Not on filedocumented in this encounter Additional Health Concerns Assessment Noted Time PHQ-9 Depression Total Score: 24 023 8:54 AM EDT documented as of this encounter Care Teams Refund Specialist Relationship Specialty Start Date End Date Sarah Verduzco DO 230 [place] [address] PCP - General Family Medicine 11/21/15 documented as of this encounter
--- OUTSIDE RECORDS SUMMARY | 2025-09-11 12:21 | XMS_ITS | Encounter Summary ---
Author Organization [employer] Address 75 [facility] 7 [place] [address] Care Team Providers Care Engineering Surveyor Name Role Phone Sarah Verduzco DO Primary Care Provider + [phone] Reason for Visit * Reason Onset Date Comments Nurse Triage 07/20/2023 Encounter Details Date Type Department Care Team ([facility] Contact Info) Description 07/20/2023 Telephone [facility] MEDICINE 230 [place], [place] [phone] Sarah Verduzco DO 230 [place], [place] [phone] Nurse Triage Social History Tobacco Use Types [...] juice Pt agrees. Advised to come to [facility] today to be seen [...] accepted this outcome Please contact pt at [phone] documented in this encounter Plan of Treatment Upcoming Encounters Date Type Department Care Team (Late st Contact Info) Description 09/21/2025 9:00 AM EST Clinical Support [facility] MEDICINE 230 [place] [address] Lauryn Cunningham, RN 01/26/2026 11:00 AM EDT Office Visit [facility] OPTOMETRY [address] [place] [address] Cindy Meek, OD 230 [place] [address] documented as of this encounter Visit Diagnoses Not on filedocumented in this encounter Additional Health Concerns Assessment Noted Time PHQ-9 Depression Total Score: 24 023 8:54 AM EDT documented as of this encounter Care Teams Engineering Surveyor Relationship Specialty Start Date End Date Sarah Verduzco DO 230 [place] [address] PCP - General Family Medicine 11/21/15 documented as of this encounter
--- OUTSIDE RECORDS SUMMARY | 2025-09-11 12:21 | XMS_ITS | Encounter Summary ---
Author Organization [employer] Address 75 [facility] 7 [place] [address] Care Team Providers Care Marketing Executive Name Role Phone Sarah Verduzco DO Primary Care Provider + [phone] Reason for Visit * Reason Onset Date Comments Appointment Request 04/04/2024 Encounter Details Date Type Department Care Team ([facility] Contact Info) Description 04/04/2024 Telephone [facility]ICINE 230 [place], [place] [phone] Sarah Verduzco DO 230 [place], [place] [phone] Appointment Request Social History Tobacco Use Types [...] management appt 04/05. Please contact pt at [phone]. documented in this encounter Plan of Treatment Upcoming Encounters Date Type Department Care Team (Late st Contact Info) Description 09/21/2025 9:00 AM EST Clinical Support [facility] MEDICINE 230 [place] [address] Lauryn Cunningham RN 01/26/2026 11:00 AM EDT Office Visit [facility] OPTOMETRY [address] [place] [address] Fantasma, Cindy, OD 230 [place] [address] documented as of this encounter Visit Diagnoses Not on filedocumented in this encounter Additional Health Concerns Assessment Noted Time PHQ-9 Depression Total Score: 24 023 8:54 AM EDT documented as of this encounter Care Teams Marketing Executive Relationship Specialty Start Date End Date Sarah Verduzco DO 230 [place] [address] PCP - General Family Medicine 11/21/15 documented as of this encounter
--- OUTSIDE RECORDS SUMMARY | 2025-09-11 12:21 | XMS_ITS | Encounter Summary ---
Author Organization [employer] Address 75 [facility] 7t [place] [address] Care Team Providers Care Promotions Intern Name Role Phone Sarah Verduzco DO Primary Care Provider + [phone] Reason for Visit * Reason Comments Med Refill Encounter Details Date Type Department Care Team ([facility] Contact Info) Description 08/21/2024 Refill [facility] MEDICINE 230 [place], [place] [phone] Sarah Verduzco DO 230 [place], [place] [phone] Social History Tobacco Use Types Packs/Day Years [...] Description 09/21/2025 9:00 AM EST Clinical Support [facility] MEDICINE 230 [place] [address] Lauryn Cunningham, LUISITO 01/26/2026 11:00 AM EDT Office Visit [facility] OPTOMETRY [address] [place] [address] Cindy Meek, OD 230 [place] [address] documented as of this encounter Visit Diagnoses Not on filedocumented in this encounter Additional Health Concerns Assessment Noted Time PHQ-9 Depression Total Score: 11 024 10:42 AM EDT documented as of this encounter Care Teams Promotions Intern Relationship Specialty Start Date End Date Sarah Verduzco DO 230 [place] [address] PCP - General Family Medicine 11/21/15 documented as of this encounter
--- OUTSIDE RECORDS SUMMARY | 2025-09-11 12:21 | XMS_ITS | Encounter Summary ---
Author Organization [employer] Address 75 [facility] 7t [place] [address] Care Team Providers Care Corporate Tax Manager Name Role Phone Sarah Verduzco DO Primary Care Provider + [phone] Reason for Visit * Reason Comments Med Refill Encounter Details Date Type Department Care Team ([facility] Contact Info) Description 06/20/2023 Refill [facility] MEDICINE 230 [place], [place] [phone] Sarah Verduzco DO 230 [place], [place] [phone] Chronic neck pain Social History Tobacco Use [...] 9:00 AM EST Clinical Support [facility] MEDICINE 230 [place] [address] Lauryn Cunningham RN 01/26/2026 11:00 AM EDT Office Visit [facility] OPTOMETRY [address] [place] [address] Fantasma, Cindy, OD 230 [place] [address] documented as of this encounter Visit Diagnoses Diagnosis Chronic neck pain Cervicalgia documented in this encounter Additional Health Concerns Assessment Noted Time PHQ-9 Depression Total Score: 24 023 8:54 AM EDT documented as of this encounter Care Teams Corporate Tax Manager Relationship Specialty Start Date End Date Sarah Verduzco DO 230 [place] [address] PCP - General Family Medicine 11/21/15 documented as of this encounter
--- OUTSIDE RECORDS SUMMARY | 2025-09-11 12:21 | XMS_ITS | Encounter Summary ---
Author Organization [employer] Address 75 [facility] 7t [place] [address] Care Team Providers Care Radiology Equipment Servicer Name Role Phone Sarah Verduzco DO Primary Care Provider + [phone] Reason for Visit * Reason Comments Med Refill Encounter Details Date Type Department Care Team ([facility] Contact Info) Description 12/06/2024 Refill [facility] MEDICINE 230 [place], [place] [phone] Sarah Verduzco DO 230 [place], [place] [phone] Social History Tobacco Use Types Packs/Day Years [...] Description 09/21/2025 9:00 AM EST Clinical Support [facility] MEDICINE [address] [place] [address] Lauryn Cunningham, LUISITO 01/26/2026 11:00 AM EDT Office Visit [facility] OPTOMETRY [address] [place] [address] Cindy Meek, OD 230 [place] [address] documented as of this encounter Visit Diagnoses Not on filedocumented in this encounter Additional Health Concerns Assessment Noted Time PHQ-9 Depression Total Score: 20 025 11:28 AM EST documented as of this encounter Care Teams Radiology Equipment Servicer Relationship Specialty Start Date End Date Sarah Verduzco DO 230 [place] [address] PCP - General Family Medicine 11/21/15 documented as of this encounter
--- OUTSIDE RECORDS SUMMARY | 2025-09-11 12:22 | XMS_ITS | Encounter Summary ---
Author Organization [employer] Address 75 [facility] 7t [place] [address] Care Team Providers Care Electronics Hardware Design Engineer Name Role Phone Sarah Verduzco DO Primary Care Provider + [phone] Reason for Visit * Reason Comments Med Refill Encounter Details Date Type Department Care Team ([facility] Contact Info) Description 04/06/2024 Refill [facility] MEDICINE 230 [place], [place] [phone] Sarah Verduzco DO 230 [place], [place] [phone] Social History Tobacco Use Types Packs/Day Years [...] Description 09/21/2025 9:00 AM EST Clinical Support [facility] MEDICINE 230 [place] [address] Lauryn Cunningham, LUISITO 01/26/2026 11:00 AM EDT Office Visit [facility] OPTOMETRY [address] [place] [address] Fantasma, Cinyd, OD 230 [place] [address] documented as of this encounter Visit Diagnoses Not on filedocumented in this encounter Additional Health Concerns Assessment Noted Time PHQ-9 Depression Total Score: 24 023 8:54 AM EDT documented as of this encounter Care Teams Electronics Hardware Design Engineer Relationship Specialty Start Date End Date Sarah Verduzco DO 230 [place] [address] PCP - General Family Medicine 11/21/15 documented as of this encounter
--- OUTSIDE RECORDS SUMMARY | 2025-09-11 12:22 | XMS_ITS | Encounter Summary ---
Author Organization [employer] [facility] Address [address] [place] [address] [address] [place] [address] Care Team Providers Care Chip Bin Conveyor Tender Name Role Phone Sarah Verduzco DO Primary Care Provider [phone] Encounter Details Date Type Department Care Team (Late Contact Info) Description 12/24/2022 Orders Only [facility] MEDICINE 230 [place] [address] Sarah Verduzco DO 230 [place] [address] Social History Tobacco Use Types Packs/Day Years [...] 9:00 AM EST Clinical Support [facility] MEDICINE 230 [place] [address] Lauryn Cunningham RN 01/26/2026 11:00 AM EDT Office Visit [facility] OPTOMETRY [address] [place] [address] Cindy Meek, OD 230 [place] [address] documented as of this encounter Visit Diagnoses Not on filedocumented in this encounter Care Teams Chip Bin Conveyor Tender Relationship Specialty Start Date End Date Sarah Verduzco DO 230 [place] [address] PCP - General Family Medicine 11/21/15 documented as of this encounter
--- OUTSIDE RECORDS SUMMARY | 2025-09-11 12:22 | XMS_ITS | Encounter Summary ---
Author Organization [employer] Address 75 [facility] 7t [place] [address] Care Team Providers Care Learning Design Specialist Name Role Phone Sarah Verduzco DO Primary Care Provider [phone] Reason for Visit * Reason Onset Date Comments Nurse Triage 04/20/2023 Encounter Details Date Type Department Care Team ([facility] st Contact Info) Description 04/20/[address] [facility] MEDICINE 230 [place], [place] [phone] Sarah Verduzco DO [address] [place], [place] [phone] Nurse Triage Social History Tobacco Use Types [...] 9:00 AM EST Clinical Support [facility] MEDICINE 230 [place] [address] Lauryn Cunningham, LUISITO 01/26/2026 11:00 AM EDT Office Visit [facility] OPTOMETRY [address] [place] [address] Cindy Meek, OD 230 [place] [address] documented as of this encounter Visit Diagnoses Not on filedocumented in this encounter Additional Health Concerns Assessment Noted Time PHQ-9 Depression Total Score: 16 01/27/ 023 10:36 AM EDT documented as of this encounter Care Teams Learning Design Specialist Relationship Specialty Start Date End Date Sarah Verduzco DO [address] [place] [address] PCP - General Family Medicine 11/21/15 documented as of this encounter
--- OUTSIDE RECORDS SUMMARY | 2025-09-11 12:22 | XMS_ITS | Encounter Summary ---
Author Organization [facility] Prior to 07/15/2024 Address [address] [place] [address] Care Team Providers Care Wire Tinner Name Role Phone Sarah Verduzco DO Primary Care Provider Aura Kramer MD Unavailable [phone] Mimi Newsome PA-C Unavailable [phone] Kaleb Tripathi PA-C Unavailable [phone] Encounter Details Date Type Department Care Team Description 12/16/2021 SCAN [facility] Neurosurgery [place] [address] [phone] Kaleb Tripathi PA-C [address] [address] Social History Tobacco Use Types Packs/Day Years [...] on filedocumented in this encounter Care Teams Wire Tinner Relationship Specialty Start Date End Date Sarah Verduzco DO PCP - General Internal Medicine 02/09/18 Aura Pollock MD [address] [address] Surgeon Neurosurgery 12/09/21 Mimi Newsome PA-C 175 [facility] [address] [place] [address] Specialist Neurosurgery 12/09/21 Kaleb Tripathi PA-C [address] [address] Specialist Neurosurgery 12/09/21 documented as of this encounter
--- OUTSIDE RECORDS SUMMARY | 2025-09-11 12:22 | XMS_ITS | Encounter Summary ---
Author Organization [employer] Address 75 [facility] 7t [place] [address] Care Team Providers Care Communications Officer Name Role Phone Sarah Verduzco DO Primary Care Provider + [phone] Reason for Visit * Reason Comments Med Refill Encounter Details Date Type Department Care Team ([facility] Contact Info) Description 05/29/2025 Refill [facility] MEDICINE 230 [place], [place] [phone] Sarah Verduzco DO 230 [place], [place] [phone] Social History Tobacco Use Types Packs/Day Years [...] Description 09/21/2025 9:00 AM EST Clinical Support [facility] MEDICINE 230 [place] [address] Lauryn Cunningham, LUISITO 01/26/2026 11:00 AM EDT Office Visit [facility] OPTOMETRY [address] [place] [address] Cindy Meek, OD 230 [place] [address] documented as of this encounter Visit Diagnoses Not on filedocumented in this encounter Additional Health Concerns Assessment Noted Time PHQ-9 Depression Total Score: 20 025 11:28 AM EST documented as of this encounter Care Teams Communications Officer Relationship Specialty Start Date End Date Sarah Verduzco DO 230 [place] [address] PCP - General Family Medicine 11/21/15 documented as of this encounter
--- OUTSIDE RECORDS SUMMARY | 2025-09-11 12:22 | XMS_ITS | Encounter Summary ---
Author Organization [facility] Address [address] [place] [address] 7 [place] [address] Care Team Providers Care Professional Caster Name Role Phone Sarah Verduzco DO Primary Care Provider [phone] Reason for Visit * Reason Comments Med Refill Encounter Details Date Type Department Care Team ([facility] Contact Info) Description 12/04/2022 Refill [facility] MEDICINE 230 [place] [address] Sarah Verduzco DO 230 [place] [address] Social History Tobacco Use Types Packs/Day Years [...] Description 09/21/2025 9:00 AM EST Clinical Support [facility] MEDICINE 230 [place] [address] Lauryn Cunningham RN 01/26/2026 11:00 AM EDT Office Visit [facility] OPTOMETRY [address] [place] [address] Cindy Meek, OD 230 [place] [address] documented as of this encounter Visit Diagnoses Not on filedocumented in this encounter Care Teams Professional Caster Relationship Specialty Start Date End Date Sarah Verduzco DO [address] [place] [address] PCP - General Family Medicine 11/21/15 documented as of this encounter
--- OUTSIDE RECORDS SUMMARY | 2025-09-11 12:22 | XMS_ITS | Encounter Summary ---
Author Organization [employer] Address 75 [facility] 7t [place] [address] Care Team Providers Care It Generalist Name Role Phone Sarah Verduzco DO Primary Care Provider [phone] Reason for Visit * Reason Comments Med Refill Encounter Details Date Type Department Care Team ([facility] Contact Info) Description 08/05/2025 Refill [facility] MEDICINE 230 [place], [place] [phone] Sarah Verduzco DO 230 [place], [place] [phone] Chronic nonintractable headache, unspecified headache type Social [...] Description 09/21/2025 9:00 AM EST Clinical Support [facility] MEDICINE 230 [place] [address] Lauryn Cunningham RN 01/26/2026 11:00 AM EDT Office Visit [facility] OPTOMETRY [address] [place] [address] Cindy Meek, OD 230 [place] [address] documented as of this encounter Visit Diagnoses Diagnosis Chronic nonintractable headache, unspecified headache type documented in this encounter Additional Health Concerns Assessment Noted Time PHQ-9 Depression Total Score: 15 025 10:18 AM EDT documented as of this encounter Care Teams It Generalist Relationship Specialty Start Date End Date Sarah Verduzco DO 230 [place] [address] PCP - General Family Medicine 11/21/15 documented as of this encounter
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
--- OUTSIDE RECORDS SUMMARY | 2025-09-11 12:22 | XMS_ITS | Encounter Summary ---
Author Organization [employer] Address 75 [facility] 7t [place] [address] Care Team Providers Care Emergency Management System Director Name Role Phone Sarah Verduzco DO Primary Care Provider + [phone] Reason for Visit * Reason Comments Med Refill Encounter Details Date Type Department Care Team ([facility] Contact Info) Description 12/29/[address] [facility] MEDICINE 230 [place], [place] [phone] Sarah Verduzco DO 230 [place], [place] [phone] Social History Tobacco Use Types Packs/Day Years [...] 09/21/2025 9:00 AM EST Clinical Support [facility] MEDICINE 230 [place] [address] Lauryn Cunningham, LUISITO 01/26/2026 11:00 AM EDT Office Visit [facility] OPTOMETRY [address] [place] [address] Cindy Meek, OD 230 [place] [address] documented as of this encounter Visit Diagnoses Not on filedocumented in this encounter Additional Health Concerns Assessment Noted Time PHQ-9 Depression Total Score: 20 025 11:28 AM EST documented as of this encounter Care Teams Emergency Management System Director Relationship Specialty Start Date End Date Sarah Verduzco DO 230 [place] [address] PCP - General Family Medicine 11/21/15 documented as of this encounter
--- OUTSIDE RECORDS SUMMARY | 2025-09-11 12:22 | XMS_ITS | Encounter Summary ---
Author Organization [employer] Address 75 [facility] 7t [place] [address] Care Team Providers Care Automobile Wrecker Name Role Phone Sarah Verduzco DO Primary Care Provider [phone] Reason for Visit * Reason Comments Med Refill Encounter Details Date Type Department Care Team ([facility] Contact Info) Description 06/01/2025 Refill [facility] MEDICINE 230 [place], [place] [phone] Sarah Verduzco DO 230 [place], [place] [phone] Chronic nonintractable headache, unspecified headache type Social [...] 9:00 AM EST Clinical Support [facility] MEDICINE 230 [place] [address] Lauryn Cunningham RN 01/26/2026 11:00 AM EDT Office Visit [facility] OPTOMETRY [address] [place] [address] Cindy Meek, OD 230 [place] [address] documented as of this encounter Visit Diagnoses Diagnosis Chronic nonintractable headache, unspecified headache type documented in this encounter Additional Health Concerns Assessment Noted Time PHQ-9 Depression Total Score: 20 025 11:28 AM EST documented as of this encounter Care Teams Automobile Wrecker Relationship Specialty Start Date End Date Sarah Verduzco DO 230 [place] [address] PCP - General Family Medicine 11/21/15 documented as of this encounter
--- OUTSIDE RECORDS SUMMARY | 2025-09-11 12:22 | XMS_ITS | Encounter Summary ---
Author Organization [facility] Prior to 07/15/2024 Address [address] [facility] [place] [address] Care Team Providers Care Manager Registration Name Role Phone Sarah Verduzco DO Primary Care Provider Aura Kramer MD Unavailable [phone] Mimi Newsome PA-C Unavailable Kaleb Tripathi PA-C Unavailable [phone] Encounter Details Date Type Department Care Team Description 08/13/2018 Refill [facility] [place] [address] [phone] Donita Lorenzo DScPAS Social History Tobacco Use Types Packs/Day Years Used Date Smoking Tobacco: Former Smokeless Tobacco: Never Sex Assigned at Date Recorded Not on file documented as of this encounter Plan of Treatment Not on file documented as of this encounter Visit Diagnoses Not on filedocumented in this encounter Care Teams Manager Registration Relationship Specialty Start Date End Date Sarah Verduzco DO PCP - General Internal Medicine 02/09/18 Aura Pollock MD [address] [address] Surgeon Neurosurgery 12/09/21 Mimi Newsome PA-C [address] [address] Specialist Neurosurgery 12/09/21 Kaleb Tripathi PA-C [address] [address] Specialist Neurosurgery 12/09/21 documented as of this encounter
--- OUTSIDE RECORDS SUMMARY | 2025-09-11 12:22 | XMS_ITS | Encounter Summary ---
Author Organization [employer] Address 75 [facility] 7 [place] [address] Care Team Providers Care Industrial Machine Assembler Name Role Phone Sarah Verduzco DO Primary Care Provider + [phone] Reason for Visit * Reason Onset Date Comments Nurse Triage 11/16/2023 Encounter Details Date Type Department Care Team ([facility] st Contact Info) Description 11/16/2023 Telephone [facility] MEDICINE 230 [place], [place] [phone] Sarah Verduzco DO 230 [place], [place] [phone] Nurse Triage Social History Tobacco Use Types [...] this time. Pt [facility]'t [facility]to go to [facility] . Pt agrees with this plan . [...] Description 09/21/2025 9:00 AM EST Clinical Support [facility] MEDICINE 230 [place] [address] Lauryn Cunningham, LUISITO 01/26/2026 11:00 AM EDT Office Visit [facility] OPTOMETRY [address] [place], [place] [phone] Cindy Meek, OD 230 [place] [address] documented as of this encounter Visit Diagnoses Not on filedocumented in this encounter Additional Health Concerns Assessment Noted Time PHQ-9 Depression Total Score: 24 023 8:54 AM EDT documented as of this encounter Care Teams Industrial Machine Assembler Relationship Specialty Start Date End Date Sarah Verduzco DO 230 [place], [place] [phone] PCP - General Family Medicine 11/21/15 documented as of this encounter
--- OUTSIDE RECORDS SUMMARY | 2025-09-11 12:22 | XMS_ITS | Encounter Summary ---
Author Organization [facility] Prior to 07/15/2024 Address [address] [facility] [place] [address] Care Team Providers Care Mainframe Systems Administrator Name Role Phone Sarah Verduzco DO Primary Care Provider Aura Kramer MD Unavailable [phone] Mimi Newsome PA-C Unavailable [phone] Kaleb Tripathi PA-C Unavailable [phone] Encounter Details Date Type Department Care Team Description 12/20/2021 Release of Information Medical Records 4 [place] [address] Abstract, Provider Social History Tobacco Use Types [...] on filedocumented in this encounter Care Teams Mainframe Systems Administrator Relationship Specialty Start Date End Date Sarah Verduzco DO PCP - General Internal Medicine 02/09/18 Aura Pollock MD [address] [phone] Surgeon Neurosurgery 12/09/21 Mimi Newsome PA-C [address] [phone] Specialist Neurosurgery 12/09/21 Kaleb Tripathi PA-C 175 [facility] [address] [place] [address] Specialist Neurosurgery 12/09/21 documented as of this encounter
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
--- OUTSIDE RECORDS SUMMARY | 2025-09-11 12:22 | XMS_ITS | Encounter Summary ---
Author Organization [facility] Prior to 07/15/2024 Address [address] [facility] [place] [address] Care Team Providers Care Watchmaking Teacher Name Role Phone Sheila Eubanks MD Primary Care Provider Unava ilyong Thapa, Pcp Primary Care Provider Unavailsuzy e Sarah Verduzco DO Primary Care Provider Unava ilable Aura Pollock MD Unavailable [phone] Mimi Newsome PA-C Unavailable Kaleb Tripathi PA-C Unavailable [phone] Encounter Details Date Type Department Care Team Description 09/11/2017 Transfer Records Medical Records [address] [place] [address] Abstract, Provider Social History Tobacco Use Types Packs/Day Years Used Date Smoking Tobacco: Former Smokeless Tobacco: Never Sex Assigned at Date Recorded Not on file documented as of this encounter Plan of Treatment Not on file documented as of this encounter Visit Diagnoses Not on filedocumented in this encounter Care Teams Watchmaking Teacher Relationship Specialty Start Date End Date Sheila Eubanks MD PCP - General Internal Medicine 05/28/17 01/21/18 [place], Pcp PCP - General Internal Medicine 01/22/18 02/08/18 Sarah Verduzco DO PCP - General Internal Medicine 02/09/18 Aura Pollock MD [address] [address] Surgeon Neurosurgery 12/09/21 Mimi Newsome PA-C [address] [address] Specialist Neurosurgery 12/09/21 Kaleb Tripathi PA-C 175 [facility] [address] [place] [address] Specialist Neurosurgery 12/09/21 documented as of this encounter
--- OUTSIDE RECORDS SUMMARY | 2025-09-11 12:22 | XMS_ITS | Encounter Summary ---
Author Organization [facility] Prior to 07/15/2024 Address [address] [facility] [address] Care Team Providers Care Chopper Operator Name Role Phone Sarah Verduzco DO Primary Care Provider Aura Kramer MD Unavailable [phone] Mimi Newsome PA-C Unavailable [phone] Kaleb Tripathi PA-C Unavailable [phone] Encounter Details Date Type Department Care Team Description 09/08/2018 Refill Internal Medicine - [place] 175 [facility], [address] [place] [address] Sheila Eubanks MD Social History Tobacco Use [...] on filedocumented in this encounter Care Teams Chopper Operator Relationship Specialty Start Date End Date Sarah Verduzco DO PCP - General Internal Medicine 02/09/18 Aura Pollock MD [address] [phone] Surgeon Neurosurgery 12/09/21 Mimi Newsome PA-C [address] [phone] Specialist Neurosurgery 12/09/21 Kaleb Tripathi PA-C [address] [phone] Specialist Neurosurgery 12/09/21 documented as of this encounter
--- OUTSIDE RECORDS SUMMARY | 2025-09-11 12:22 | XMS_ITS | Encounter Summary ---
Author Organization [facility] Prior to 07/15/[address] [facility] [place] [address] Care Team Providers Care Double End Production Grinder Name Role Phone Sheila Eubanks MD Primary Care Provider Unava ilyong Thapa, Pcp Primary Care Provider Unavailsuzy e Sarah Verduzco DO Primary Care Provider Unava ilable Aura Pollock MD Unavailable [phone] Mimi Newsome PA-C Unavailable [phone] Kaleb Tripathi PA-C Unavailable Encounter Details Date Type Department Care Team Description 07/08/2017 Telecom Coordinator Report Medical Records [address] [place] [address] [address] Social History Tobacco Use Types Packs/Day Years Used Date Smoking Tobacco: Never Assessed Sex Assigned at Date Recorded Not on file documented as of this encounter Plan of Treatment Not on file documented as of this encounter Visit Diagnoses Not on filedocumented in this encounter Care Teams Double End Production Grinder Relationship Specialty Start Date End Date Sheila Eubanks MD PCP - General Internal Medicine 05/28/17 01/21/18 Elier, Babar PCP - General Internal Medicine 01/22/18 02/08/18 Sarah Verduzco DO PCP - General Internal Medicine 02/09/18 Aura Pollock MD 175 [facility] [address] [place] [address] Surgeon Neurosurgery 12/09/21 Mimi Newsome PA-C [address] [address] Specialist Neurosurgery 12/09/21 Kaleb Tripathi PA-C [address] [address] Specialist Neurosurgery 12/09/21 documented as of this encounter
--- OUTSIDE RECORDS SUMMARY | 2025-09-11 12:22 | XMS_ITS | Encounter Summary ---
Author Organization [employer] Address [address] [place] [address] 7 [place] [address] Care Team Providers Care Floor Polisher Name Role Phone DellaSarah mills Primary Care Provider [phone] Reason for Visit * Reason Comments Med Refill Encounter Details Date Type Department Care Team (Late Contact Info) Description 04/19/[address] [facility] MEDICINE 230 [place], [place] [phone] Alexa Padgett FNP Chronic bilateral low back [...] [facility] 230 [place], [place] [phone] Lauyrn Cunningham RN 01/26/2026 11:00 AM EDT Office Visit [facility] OPTOMETRY [address] [place], [place] [phone] Cindy Meek, OD 230 [place] [address] documented as of this encounter Visit Diagnoses Diagnosis Chronic bilateral low back pain without sciatica documented in this encounter Additional Health Concerns Assessment Noted Time PHQ-9 Depression Total Score: 16 023 10:36 AM EDT documented as of this encounter Care Teams Floor Polisher Relationship Specialty Start Date End Date Sarah Verduzco DO 230 [place] [address] PCP - General Family Medicine 11/21/15 documented as of this encounter
--- OUTSIDE RECORDS SUMMARY | 2025-09-11 12:22 | XMS_ITS | Encounter Summary ---
Author Organization [employer] Address 75 [facility] 7 [place] [address] Care Team Providers Care Compacting Machine Operator/Tender Name Role Phone Sarah Verduzco DO Primary Care Provider +1- [phone] Reason for Visit * Reason Onset Date Comments Med Refill 10/20/2022 Encounter Details Date Type Department Care Team ([facility] Contact Info) Description 10/20/2022 Telephone [facility] MEDICINE [address] [place], [place] [phone] Sarah Verduzco DO 230 [place], [place] [phone] Med Refill Social History Tobacco Use Types [...] Description 09/21/2025 9:00 AM EST Clinical Support [facility] MEDICINE 230 [place] [address] Lauryn Cunningham, LUISITO 01/26/2026 11:00 AM EDT Office Visit [facility] OPTOMETRY [address] [place] [address] Cindy Meek, ALBINA 230 [place] [address] documented as of this encounter Visit Diagnoses Not on filedocumented in this encounter Care Teams Compacting Machine Operator/Tender Relationship Specialty Start Date End Date Sarah Verduzco DO [address] [place], [place] [phone] PCP - General Family Medicine 11/21/15 documented as of this encounter
--- OUTSIDE RECORDS SUMMARY | 2025-09-11 12:22 | XMS_ITS | Encounter Summary ---
Author Organization [employer] Address 75 [facility] 7 [place] [address] Care Team Providers Care Manager International Name Role Phone Sarah Verduzco DO Primary Care Provider +1- [phone] Reason for Visit * Reason Onset Date Comments Medication Question 03/24/2023 Encounter Details Date Type Department Care Team ([facility] Contact Info) Description 03/24/2023 Telephone [facility] MEDICINE [address] [place], [place] [phone] Sarah Verduzco DO 230 [place], [place] [phone] Medication Question Social History Tobacco Use Types [...] used to receive. Please contact pt at [phone] documented in this encounter Plan of Treatment Upcoming Encounters Date Type Department Care Team (Late st Contact Info) Description 09/21/2025 9:00 AM EST Clinical Support [facility] MEDICINE [address] [place] [address] Lauryn Cunningham RN 01/26/2026 11:00 AM EDT Office Visit [facility] OPTOMETRY [address] [place] [address] Fantasma, Cindy, OD 230 [place] [address] documented as of this encounter Visit Diagnoses Not on filedocumented in this encounter Additional Health Concerns Assessment Noted Time PHQ-9 Depression Total Score: 16 023 10:36 AM EDT documented as of this encounter Care Teams Manager International Relationship Specialty Start Date End Date Sarah Verduzco DO 230 [place] [address] PCP - General Family Medicine 11/21/15 documented as of this encounter
--- OUTSIDE RECORDS SUMMARY | 2025-09-11 12:22 | XMS_ITS | Encounter Summary ---
Author Organization [employer] Address 75 [facility] 7 [place] [address] Care Team Providers Care Antiquer Name Role Phone Sarah Verduzco DO Primary Care Provider +1- [phone] Reason for Visit * Reason Onset Date Comments Med Refill 03/20/2023 Encounter Details Date Type Department Care Team (Late st Contact Info) Description 03/20/2023 Telephone [facility] MEDICINE 230 [place], [place] [phone] Sarah Verduzco DO 230 [place], [place] [phone] Med Refill Social History Tobacco Use Types [...] 50 mg tablet to be sent to [facility]/pharmacy #[id number] -[place], [place] - [address] documented in this encounter Plan of Treatment Upcoming Encounters Date Type Department Care Team (Late st Contact Info) Description 09/21/2025 9:00 AM EST Clinical Support [facility] MEDICINE [address] [place] [address] Lauryn Cunningham, RN 01/26/2026 11:00 AM EDT Office Visit [facility] OPTOMETRY [address] [place], [place] [phone] Cindy Meek, OD 230 [place] [address] documented as of this encounter Visit Diagnoses Not on filedocumented in this encounter Additional Health Concerns Assessment Noted Time PHQ-9 Depression Total Score: 16 01/27/ 023 10:36 AM EDT documented as of this encounter Care Teams Antiquer Relationship Specialty Start Date End Date Sarah Verduzco DO [address] [place] [address] PCP - General Family Medicine 11/21/15 documented as of this encounter
--- OUTSIDE RECORDS SUMMARY | 2025-09-11 12:22 | XMS_ITS | Encounter Summary ---
Author Organization [employer] Address [address] [place] [address] 7 [place] [address] Care Team Providers Care Dispatcher Relay Name Role Phone MaddieSarah arriaga Primary Care Provider +1- [phone] Reason for Visit * Reason Comments Med Refill Encounter Details Date Type Department Care Team (Late Contact Info) Description 10/21/2022 Refill [facility] MEDICINE 230 [place], [place] [phone] Елена Olson MD 230 [place], [place] [phone] Sinusitis, unspecified chronicity, unspecified location Social History [...] Description 09/21/2025 9:00 AM EST Clinical Support [facility] MEDICINE [address] [place] [address] Lauryn Cunningham RN 01/26/2026 11:00 AM EDT Office Visit [facility] OPTOMETRY [address] [place], [place] [phone] Cindy Meek, OD 230 [place], [place] [phone] documented as of this encounter Visit Diagnoses Diagnosis Sinusitis, unspecified chronicity, unspecified location documented in this encounter Care Teams Dispatcher Relay Relationship Specialty Start Date End Date Sarah Verduzco DO 230 [place], [place] [phone] PCP - General Family Medicine 11/21/15 documented as of this encounter
--- OUTSIDE RECORDS SUMMARY | 2025-09-11 12:22 | XMS_ITS | Encounter Summary ---
Author Organization [employer] Address 75 [facility] 7 [place] [address] Care Team Providers Care Pharmaceutical Scientist Name Role Phone Sarah Verduzco DO Primary Care Provider +1- [phone] Reason for Visit * Reason Comments Med Refill Encounter Details Date Type Department Care Team (Late st Contact Info) Description 10/21/2022 Telephone [facility] MEDICINE 230 [place], [place] [phone] Sarah Verduzco DO 230 [place], [place] [phone] Med Refill Social History Tobacco Use Types [...] 9:00 AM EST Clinical Support [facility] MEDICINE [address] [place] [address] Lauryn Cunningham, LUISITO 01/26/2026 11:00 AM EDT Office Visit [facility] OPTOMETRY [address] [place] [address] Cindy Meek, OD 230 [place], [place] [phone] documented as of this encounter Visit Diagnoses Not on filedocumented in this encounter Care Teams Pharmaceutical Scientist Relationship Specialty Start Date End Date Sarah Verduzco DO 230 [place], [place] [phone] PCP - General Family Medicine 11/21/15 documented as of this encounter
--- OUTSIDE RECORDS SUMMARY | 2025-09-11 12:22 | XMS_ITS | Encounter Summary ---
Author Organization [employer] Address [address] [facility] 7t [place] [address] Care Team Providers Care Automobile Sales Consultant Name Role Phone Dax Sarah Primary Care Provider + [phone] Encounter Details Date Type Department Care Team ([facility] st Contact Info) Description 12/22/2023 Orders Only [facility] MEDICINE 230 [place], [place] [phone] ProviderTristan MD Social History Tobacco Use Types [...] Description 09/21/2025 9:00 AM EST Clinical Support [facility] MEDICINE [address] [place] [address] Lauryn Cunningham, LUISITO 01/26/2026 11:00 AM EDT Office Visit [facility] OPTOMETRY [address] [place], [place] [phone] Cindy Meek, OD 230 [place] [address] documented as of this encounter Procedures Procedure [...] as of this encounter Care Teams Automobile Sales Consultant Relationship Specialty Start Date End Date Sarah Verduzco DO 230 [place] [address] PCP - General Family Medicine 11/21/15 documented as of this encounter
--- OUTSIDE RECORDS SUMMARY | 2025-09-11 12:22 | XMS_ITS | Encounter Summary ---
Author Organization [employer] [facility] Address [address] [place] [address] 7 [place] [address] Care Team Providers Care Vest Presser Name Role Phone Sarah Verduzco DO Primary Care Provider [phone]- [phone] Reason for Visit * Reason Comments Med Refill Encounter Details Date Type Department Care Team ([facility] Contact Info) Description 02/06/2023 Refill [facility] MEDICINE [address] [place] [phone] Sarah Verduzco DO 230 [place], [place] [phone] Chronic GERD Social History Tobacco Use Types [...] Upcoming Encounters Date Type Department Care Team ([facility] Contact Info) Description 09/21/2025 9:00 AM EST Clinical Support [facility] MEDICINE [address] [place] [address] Lauryn Cunningham RN 01/26/2026 11:00 AM EDT Office Visit [facility] OPTOMETRY [address] [place] [address] Cindy Meek, OD 230 [place] [address] documented as of this encounter Visit Diagnoses Diagnosis Chronic GERD documented in this encounter Additional Health Concerns Assessment Noted Time PHQ-9 Depression Total Score: 16 023 10:36 AM EDT documented as of this encounter Care Teams Vest Presser Relationship Specialty Start Date End Date Sarah Verduzco DO 230 [place] [address] PCP - General Family Medicine 11/21/15 documented as of this encounter
--- OUTSIDE RECORDS SUMMARY | 2025-09-11 12:22 | XMS_ITS | Encounter Summary ---
Author Organization [employer] Address [address] [place] [address] 7 [place] [address] Care Team Providers Care Thermoforming Machine Operator Name Role Phone Sarah Verduzco DO Primary Care Provider +1- [phone] Reason for Visit * Reason Comments Med Refill Encounter Details Date Type Department Care Team (Late Contact Info) Description 04/19/2023 Refill [facility] MEDICINE [address] [place], [place] [phone] Sarah Verduzco DO 230 [place], [place] [phone] Chronic GERD Social History Tobacco Use Types [...] Support [facility] MEDICINE 230 [place], [place] [phone] Lauryn Cunningham RN 01/26/2026 11:00 AM EDT Office Visit [facility] OPTOMETRY [address] [place] [phone] Cindy Meek, ALBINA 230 [place] [address] documented as of this encounter Visit Diagnoses Diagnosis Chronic GERD documented in this encounter Additional Health Concerns Assessment Noted Time PHQ-9 Depression Total Score: 16 023 10:36 AM EDT documented as of this encounter Care Teams Thermoforming Machine Operator Relationship Specialty Start Date End Date Sarah Verduzco DO 230 [place] [address] PCP - General Family Medicine 11/21/15 documented as of this encounter
--- OUTSIDE RECORDS SUMMARY | 2025-09-11 12:22 | XMS_ITS | Encounter Summary ---
Author Organization [employer] [facility] Address [address] [place] [address] 7 [place] [address] Care Team Providers Care Experimental Display Builder Name Role Phone Sarah Verduzco DO Primary Care Provider +1- [phone] Reason for Visit * Reason Comments Med Refill Encounter Details Date Type Department Care Team ([facility] Contact Info) Description 12/19/2022 Refill [facility] MEDICINE [address] [place] [address] Sarah Verduzco DO 230 [place] [address] Social History Tobacco Use Types Packs/Day Years [...] Support [facility] MEDICINE [address] [place] [address] Lauryn Cunningham RN 01/26/2026 11:00 AM EDT Office Visit [facility] OPTOMETRY [address] [place] [address] Cindy Meek, OD 230 [place] [address] documented as of this encounter Visit Diagnoses Not on filedocumented in this encounter Care Teams Experimental Display Builder Relationship Specialty Start Date End Date Sarah Verduzco DO [address] [place] [address] PCP - General Family Medicine 11/21/15 documented as of this encounter
--- OUTSIDE RECORDS SUMMARY | 2025-09-11 12:22 | XMS_ITS | Encounter Summary ---
Author Organization [employer] Address 75 [facility] 7t [place] [address] Care Team Providers Care Paper Pattern Folder Name Role Phone Sarah Verduzco DO Primary Care Provider + [phone] Reason for Visit * Reason Comments Med Refill Encounter Details Date Type Department Care Team ([facility] Contact Info) Description 05/29/2025 Refill [facility] MEDICINE 230 [place], [place] [phone] Sarah Verduzco DO 230 [place], [place] [phone] Social History Tobacco Use Types Packs/Day Years [...] Support [facility] MEDICINE [address] [place] [address] Lauryn Cunningham, LUISITO 01/26/2026 11:00 AM EDT Office Visit [facility] OPTOMETRY [address] [place] [address] Cindy Meek, OD 230 [place] [address] documented as of this encounter Visit Diagnoses Not on filedocumented in this encounter Additional Health Concerns Assessment Noted Time PHQ-9 Depression Total Score: 20 025 11:28 AM EST documented as of this encounter Care Teams Paper Pattern Folder Relationship Specialty Start Date End Date Sarah Verduzco DO 230 [place] [address] PCP - General Family Medicine 11/21/15 documented as of this encounter
--- OUTSIDE RECORDS SUMMARY | 2025-09-11 12:22 | XMS_ITS | Encounter Summary ---
Author Organization [employer] Address 75 [facility] 7t [place] [address] Care Team Providers Care Journeyman Electrician Pv Installer Name Role Phone Sarah Verduzco DO Primary Care Provider + [phone] Reason for Visit * Reason Comments Med Refill Encounter Details Date Type Department Care Team ([facility] Contact Info) Description 10/05/2024 Refill [facility] MEDICINE 230 [place], [place] [phone] Sarah Verduzco DO 230 [place], [place] [phone] Social History Tobacco Use Types Packs/Day Years [...] Description 09/21/2025 9:00 AM EST Clinical Support [facility] MEDICINE [address] [place] [address] Lauryn Cunningham, LUISITO 01/26/2026 11:00 AM EDT Office Visit [facility] OPTOMETRY [address] [place] [address] Cindy Meek, OD 230 [place] [address] documented as of this encounter Visit Diagnoses Not on filedocumented in this encounter Additional Health Concerns Assessment Noted Time PHQ-9 Depression Total Score: 11 024 10:42 AM EDT documented as of this encounter Care Teams Journeyman Electrician Pv Installer Relationship Specialty Start Date End Date Sarah Verduzco DO 230 [place] [address] PCP - General Family Medicine 11/21/15 documented as of this encounter
== END 2025-09-11 10:46 ==
LOC: HO.US 10:45
PROVIDERS: PCP Family Medicine; Visit Provider Student in an Organized Health Care Education/Training Program
DX: E04.2 Nontoxic multinodular goiter (principal)
CPT/HCPCS: 76536

== ENCOUNTER → 2025-09-11 10:51 | Outpatient (BNV) | payer OTHER, SELFPAY | PROVIDERS: PCP Family Medicine; Visit Provider Radiology Diagnostic Radiology | DX: E04.2 Nontoxic multinodular goiter (principal) | CPT/HCPCS: 76536 ==